=== PATIENT | male | born 1960 | race Caucasian/White ===

== ENCOUNTER 2018-05-05 12:24 | Outpatient (REF) | payer MEDICARE, SELFPAY ==
[2018-05-05 21:49] LABS: Hemoglobin A1C 10.2 % (4.5-6.2)
[2018-05-05 21:51] LABS: ALT 34 U/L (12-78); AST 15 U/L (15-37); Albumin 3.5 g/dL (3.4-5.0); Alkaline Phosphatase 133 U/L (46-116); BUN 30 mg/dL (7-18); Bilirubin, Total 0.3 mg/dL (0.2-1.0); CREATININE 1.23 mg/dL (0.70-1.30); Calcium 9.1 mg/dL (8.5-10.1); Chloride 101 mmol/L (98-107); Cholesterol 182 mg/dL (50-200); Glucose 95 mg/dL (70-100); HDL Cholesterol 42 mg/dL (40-60); LDL CHOLESTEROL 110 mg/dL (<100); Sodium 136 mmol/L (136-145); Total Protein 6.8 g/dL (6.4-8.2); Triglyceride 202 mg/dL (30-150)
[2018-05-07 10:37] LABS: PSA, Screening 0.4 ng/ml (0-3.5)
== END 2018-05-05 12:44 ==
LOC: NCHCN 12:24
PROVIDERS: PCP Family Medicine; Visit Provider Family Medicine
DX: E11.9 Type 2 diabetes mellitus without complications (principal); E78.5 Hyperlipidemia, unspecified; N18.3 Chronic kidney disease, stage 3 (moderate); Z12.5 Encounter for screening for malignant neoplasm of prostate
CPT/HCPCS: 80053; 80061; 83721; 84153; 83036

== ENCOUNTER 2018-06-04 04:49 | Emergency (ER) | payer MEDICARE, SELFPAY ==
[2018-06-04] VITALS (92 sets, daily range): BP systolic 91–155; BP diastolic 49–85; PULSE 81–108; RESP 10–26; TEMP 36.4; O2SAT 92–99
--- NOTE | 2018-06-04 05:02 | W.ED.GENAD ---
Discharge Plan Disposition Patient Disposition: HOSPITAL, NON-SPECIFIC Condition: Stable Discharge Details Chief Complaint: Chest Pain Clinical Impression: ACS (acute coronary syndrome) Primary Care Provider: Kalli Gamble V ED Provider: Oz Matthew [place] Meds and New Rx's Prescriptions: No Action furosemide 40 MG tablet 80 mg PO DAILY AM RF: 0 clopidogrel [Plavix] 75 MG tablet 75 mg PO DAILY RF: 0 amitriptyline 50 MG tablet 100 mg PO HS RF: 0 isosorbide mononitrate 60 MG tablet extended release 24 hr 60 mg PO BID RF: 0 rosuvastatin [Crestor] 40 MG tablet 40 mg PO HS RF: 0 ranolazine [Ranexa] 500 MG tablet extended release 12 hr 500 mg PO BID RF: 0 losartan 25 MG tablet 25 mg PO DAILY RF: 0 aspirin [Aspir-81] 81 MG tablet,delayed release (DR/EC) 1 tab PO DAILY RF: 0 duloxetine [Cymbalta] 60 MG capsule,delayed release(DR/EC) 60 mg PO BID RF: 0 metoprolol succinate 100 MG tablet extended release 24 hr 100 mg PO BID RF: 0 furosemide 40 MG tablet 40 mg PO QPM RF: 0 vitamin B complex [B-Complex] 1 EACH tablet 50,000 units PO .TWICE A WEEK RF: 0 nitroglycerin [Nitrolingual] 12 GM spray,non-aerosol 1 spray Sublingual DIRECTED PRN (Reason: Chest Pain) RF: 0 oxycodone-acetaminophen 1 EACH tablet 1 ea PO BID RF: 0 insulin detemir U-100 [Levemir FlexTouch U-100 Insuln] 300 UNITS/3 ML insulin pen 75 units Sub-Q BID RF: 0 pantoprazole 20 mg Tablet,Delayed Release (Dr/Ec) 20 mg PO BID RF: 0 insulin NPH isoph U-100 human [Novolin N NPH U-100 Insulin] 100 unit/mL Suspension 56 unit subcut HS RF: 0 Medical Decision Making Patient presenting with chest pressure radiating to the left arm and shortness of breath. Shortness of breath better with nitro but chest pressure still present. He does have unequal radial pulses but is presenting more as angina as opposed to dissection. Will, however, get CTA to rule out dissection. In the meantime, treat as unstable angina. His EKG does not show STEMI. Start nitroglycerin and titrate for chest pain. Blood pressure is a little bit soft so we will give a little fluid bolus. Heart is a little fast so will try Lopressor if able to once nitroglycerin has started depending on blood pressure. Aspirin given. Will initiate heparin if CTA negative for dissection. Will need transfer as no beds in hospital. Patient started on nitroglycerin drip at 5 mcg/min. Could not go up on the nitroglycerin because his blood pressure systolically was right around 100. Eventually his chest pain did resolve with a nitroglycerin. He did not receive Lopressor because of blood pressure. He did receive a 250 saline bolus. He is on 100 mL's per hour of saline currently. Initial laboratory studies mostly unremarkable. White count a little bit elevated. Hemoglobin fine. Platelets and coags normal. First troponin negative. BNP a little up at 1126. CTA of the chest and abdomen was obtained. This is negative for dissection. No evidence of PE, consolidation, pleural effusion, edema. Patient's pain did eventually resolve. He is currently pain-free. He has been started on heparin drip. He has been given Plavix 300 mg orally. He is hemodynamically stable with heart rate in 80s and SBP right around 100. I have spoken to [facility], [facility] (did discuss case with restorer paper and prints at [facility]). Spoke with hospitalist at [facility]. Patient accepted to [place] by Dr. Lezama. Patient remains stable and pain free. Second troponin is pending. [facility] is aware of pending transfer. Medical Records Medical records reviewed: Yes I reviewed the patient's medical records. Lab Data Lab results reviewed: Yes I reviewed the patient's lab results. ECG Data Attestation: I personally reviewed and interpreted this ECG (s) as follows: Prior ECG tracings: available for review Interpretation: Sinus tachycardia at 105. Normal axis and interval. Nonspecific ST changes consistent with previous. No acute elevation or depression. HPI General Mode of arrival: ambulatory. Date/Time Provider Initiated Documentation: 06/04/18 04:55. Limitations to Documentation: no limitations. Information obtained by: patient and old records reviewed. HPI Narrative: Patient presents to ED with complaint of chest pain and shortness of breath. Patient has known history of cardiac disease. He is on a slew of cardiac medications including Ranexa. He, however, does not typically have chest pain and is somewhat active without symptoms. This morning he awoke gasping for air with shortness of breath and chest pain described as pressure, squeezing. He had some lightheadedness and diaphoresis. He had no nausea. Chest pressure is left-sided and radiates slightly to the left arm. He has no back pain. He took 3 nitroglycerin without relief of the chest pressure but it did seem to make shortness of breath better. He presented to the ED for evaluation. He reports that this feels similar to previous heart attacks. He reports that the shortness of breath is almost gone but the chest pressure is still present and only a little bit better than when it started at home. Related Data Home Medications Medication Instructions Recorded Confirmed amitriptyline 100 mg PO HS 08/18/14 06/04/18 clopidogrel [Plavix] 75 mg PO DAILY 08/18/14 06/04/18 furosemide 80 mg PO DAILY AM 08/18/14 06/04/18 isosorbide mononitrate 60 mg PO BID 08/18/14 06/04/18 losartan 25 mg PO DAILY 08/18/14 06/04/18 ranolazine [Ranexa] 500 mg PO BID 08/18/14 06/04/18 rosuvastatin [Crestor] 40 mg PO HS 08/18/14 06/04/18 aspirin [Aspir-81] 1 tab PO DAILY 09/14/14 06/04/18 duloxetine [Cymbalta] 60 mg PO BID 09/14/14 06/04/18 metoprolol succinate 100 mg PO BID 11/03/14 06/04/18 furosemide 40 mg PO QPM 09/04/16 06/04/18 nitroglycerin [Nitrolingual] 1 spray SUBLINGUAL DIRECTED PRN 09/04/16 06/04/18 vitamin B complex [B-Complex] 50,000 units PO .TWICE A WEEK 09/04/16 06/04/18 oxycodone-acetaminophen 1 ea PO BID 10/22/16 06/04/18 insulin detemir U-100 [Levemir 75 units SUB-Q BID 02/23/17 06/04/18 FlexTouch U-100 Insuln] insulin NPH isoph U-100 human 56 unit SUBCUT HS 06/04/18 06/04/18 [Novolin N NPH U-100 Insulin] pantoprazole 20 mg PO BID 06/04/18 06/04/18 Allergies Allergy/AdvReac Type Severity Reaction Status Date / Time lorazepam Allergy Intermediate Loopy Unverified 06/04/18 04:56 metformin Allergy Intermediate Diarrhea Unverified 06/04/18 04:56 methadone Allergy Intermediate Loopy Unverified 06/04/18 04:56 Penicillins Allergy Unknown tolerated Unverified 06/04/18 04:56 Zosyn on admission 06/2016 insulin glargine, human AdvReac Intermediate Diarrhea Unverified 06/04/18 04:56 recombin. a [From Lantus] gabapentin AdvReac Mild loopy Unverified 06/04/18 04:56 morphine AdvReac Unknown Flushing Unverified 06/04/18 04:56 when given too fast General Stated Complaint: Chest Pain CARLOS EDUARDO: 2 Review of Systems Constitutional Denies chills, Denies fever(s) and Denies headache(s) Eyes Denies change in vision, Denies eye discharge and Denies eye pain ENT Denies otalgia, Denies facial pain, Denies headache(s), Denies neck pain and Denies sore throat Cardiovascular Reports chest pain, Reports diaphoresis, Denies syncope, Denies rapid heart rate, Denies edema, Reports lightheadedness, Reports radiating jaw, neck or arm pain, Denies palpitations and Reports dyspnea Respiratory Denies cough and Reports dyspnea Gastrointestinal Denies abdominal pain, Denies melena, Denies hematochezia, Denies nausea and Denies vomiting Genitourinary Denies hematuria Musculoskeletal Denies back pain, Denies neck pain and Reports numbness (chronic peripheral neuropathy) Integumentary/Breasts Denies erythema and Denies rash Neurologic Denies syncope, Denies headache(s), Denies focal weakness and Reports numbness (chronic peripheral neuropathy) Endocrine Denies palpitations [facility] Medical History CAD (coronary artery disease) (Chronic) Diabetes mellitus (Chronic) GERD (gastroesophageal reflux disease) (Chronic) HTN (hypertension) (Chronic) Hypercholesterolemia (Chronic) Migraine (Chronic) Neuropathy (Chronic) DARIO (obstructive sleep apnea) (Chronic) Obesities, morbid (Chronic) 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) Social History Smoking/Tobacco Use Status: Current-Occasional Surgical History History of heart artery stent (Chronic) Status post below knee amputation of left lower extremity (Chronic) History of lung biopsy (Inactive) S/P foot surgery (Inactive) Exam Const General: cooperative, comfortable and no acute distress Orientation: alert and oriented x3 HENMT Head: normocephalic and atraumatic Mouth: moist mucous membranes Neck Neck: normal visual inspection, trachea midline and supple Resp Effort & Inspection: normal respiratory effort Auscultation: rales bilaterally (few) at the base Cardio Rate: regular rate Rhythm: regular rhythm Heart Sounds: S1 normal and S2 normal Pulses: radial pulses present (right < left) GI Palpation: soft, not firm and nontender Skin General skin exam: no rashes or lesions noted Neuro General: alert, oriented x3, no focal motor deficits and CN's II-XI intact bilaterally Extrem General: no clubbing, cyanosis or edema and other (left BKA) Course Vital Signs Temperature 97.5 F L 06/04/18 04:54 Pulse 108 H 06/04/18 04:54 Respiratory Rate 20 06/04/18 04:54 Blood Pressure 155/73 H 06/04/18 04:54 Pulse Oximetry 97 06/04/18 04:54 Temperature 97.5 F L 06/04/18 04:54 Temperature Source Skin 06/04/18 04:54 Pulse 108 H 06/04/18 04:54 Respiratory Rate 20 06/04/18 04:54 Blood Pressure 155/73 H 06/04/18 04:54 Blood Pressure Position Sitting 06/04/18 04:54 Pulse Oximetry 97 06/04/18 04:54 Oxygen Delivery Method Room Air 06/04/18 04:54 Oxygen Flow Rate 0 06/04/18 04:54 Pain Level 8 06/04/18 04:54 Critical Care Time Critical Care Time: Yes Total Critical Care Time: 75 Attestation: ACS on NTG and Heparin
--- NOTE | 2018-06-04 05:12 | ED.GENADUL_ITS ---
Discharge Plan Disposition Patient Disposition: HOSPITAL, NON-SPECIFIC Condition: Stable Discharge Details Chief Complaint: Chest Pain Clinical Impression: ACS (acute coronary syndrome) Primary Care Provider: Kalli Gamble V ED Provider: Oz Matthew [place] Meds and New Rx's Prescriptions: No Action furosemide 40 MG tablet 80 mg PO DAILY AM RF: 0 clopidogrel [Plavix] 75 MG tablet 75 mg PO DAILY RF: 0 amitriptyline 50 MG tablet 100 mg PO HS RF: 0 isosorbide mononitrate 60 MG tablet extended release 24 hr 60 mg PO BID RF: 0 rosuvastatin [Crestor] 40 MG tablet 40 mg PO HS RF: 0 ranolazine [Ranexa] 500 MG tablet extended release 12 hr 500 mg PO BID RF: 0 losartan 25 MG tablet 25 mg PO DAILY RF: 0 aspirin [Aspir-81] 81 MG tablet,delayed release (DR/EC) 1 tab PO DAILY RF: 0 duloxetine [Cymbalta] 60 MG capsule,delayed release(DR/EC) 60 mg PO BID RF: 0 metoprolol succinate 100 MG tablet extended release 24 hr 100 mg PO BID RF: 0 furosemide 40 MG tablet 40 mg PO QPM RF: 0 vitamin B complex [B-Complex] 1 EACH tablet 50,000 units PO .TWICE A WEEK RF: 0 nitroglycerin [Nitrolingual] 12 GM spray,non-aerosol 1 spray Sublingual DIRECTED PRN (Reason: Chest Pain) RF: 0 oxycodone-acetaminophen 1 EACH tablet 1 ea PO BID RF: 0 insulin detemir U-100 [Levemir FlexTouch U-100 Insuln] 300 UNITS/3 ML insulin pen 75 units Sub-Q BID RF: 0 pantoprazole 20 mg Tablet,Delayed Release (Dr/Ec) 20 mg PO BID RF: 0 insulin NPH isoph U-100 human [Novolin N NPH U-100 Insulin] 100 unit/mL Suspension 56 unit subcut HS RF: 0 Medical Decision Making Patient presenting with chest pressure radiating to the left arm and shortness of breath. Shortness of breath better with nitro but chest pressure still present. He does have unequal radial pulses but is presenting more as angina as opposed to dissection. Will, however, get CTA to rule out dissection. In the meantime, treat as unstable angina. His EKG does not show STEMI. Start nitroglycerin and titrate for chest pain. Blood pressure is a little bit soft so we will give a little fluid bolus. Heart is a little fast so will try Lopressor if able to once nitroglycerin has started depending on blood pressure. Aspirin given. Will initiate heparin if CTA negative for dissection. Will need transfer as no beds in hospital. Patient started on nitroglycerin drip at 5 mcg/min. Could not go up on the nitroglycerin because his blood pressure systolically was right around 100. Eventually his chest pain did resolve with a nitroglycerin. He did not receive Lopressor because of blood pressure. He did receive a 250 saline bolus. He is on 100 mL's per hour of saline currently. Initial laboratory studies mostly unremarkable. White count a little bit elevated. Hemoglobin fine. Platelets and coags normal. First troponin negative. BNP a little up at 1126. CTA of the chest and abdomen was obtained. This is negative for dissection. No evidence of PE, consolidation, pleural effusion, edema. Patient's pain did eventually resolve. He is currently pain-free. He has been started on heparin drip. He has been given Plavix 300 mg orally. He is hemodynamically stable with heart rate in 80s and SBP right around 100. I have spoken to [facility], [facility] (did discuss case with middle school science teacher at [facility]). Spoke with hospitalist at [facility]. Patient accepted to [place] by Dr. Lezama. Patient remains stable and pain free. Second troponin is pending. [facility] is aware of pending transfer. Medical Records Medical records reviewed: Yes I reviewed the patient's medical records. Lab Data Lab results reviewed: Yes I reviewed the patient's lab results. ECG Data Attestation: I personally reviewed and interpreted this ECG (s) as follows: Prior ECG tracings: available for review Interpretation: Sinus tachycardia at 105. Normal axis and interval. Nonspecific ST changes consistent with previous. No acute elevation or depression. HPI General Mode of arrival: ambulatory . Date/Time Provider Initiated Documentation: 06/04/18 04:55 . Limitations to Documentation: no limitations . Information obtained by: patient and old records reviewed . HPI Narrative: Patient presents to ED with complaint of chest pain and shortness of breath. Patient has known history of cardiac disease. He is on a slew of cardiac medications including Ranexa. He, however, does not typically have chest pain and is somewhat active without symptoms. This morning he awoke gasping for air with shortness of breath and chest pain described as pressure, squeezing. He had some lightheadedness and diaphoresis. He had no nausea. Chest pressure is left-sided and radiates slightly to the left arm. He has no back pain. He took 3 nitroglycerin without relief of the chest pressure but it did seem to make shortness of breath better. He presented to the ED for evaluation. He reports that this feels similar to previous heart attacks. He reports that the shortness of breath is almost gone but the chest pressure is still present and only a little bit better than when it started at home. Related Data Home Medications Medication Instructions Recorded Confirmed amitriptyline 100 mg PO HS 08/18/14 06/04/18 clopidogrel [Plavix] 75 mg PO DAILY 08/18/14 06/04/18 furosemide 80 mg PO DAILY AM 08/18/14 06/04/18 isosorbide mononitrate 60 mg PO BID 08/18/14 06/04/18 losartan 25 mg PO DAILY 08/18/14 06/04/18 ranolazine [Ranexa] 500 mg PO BID 08/18/14 06/04/18 rosuvastatin [Crestor] 40 mg PO HS 08/18/14 06/04/18 aspirin [Aspir-81] 1 tab PO DAILY 09/14/14 06/04/18 duloxetine [Cymbalta] 60 mg PO BID 09/14/14 06/04/18 metoprolol succinate 100 mg PO BID 11/03/14 06/04/18 furosemide 40 mg PO QPM 09/04/16 06/04/18 nitroglycerin [Nitrolingual] 1 spray SUBLINGUAL DIRECTED PRN 09/04/16 vitamin B complex [B-Complex] 50,000 units PO .TWICE A WEEK 09/04/16 06/04/18 oxycodone-acetaminophen 1 ea PO BID 10/22/16 06/04/18 insulin detemir U-100 [Levemir 75 units SUB-Q BID 02/23/17 06/04/18 FlexTouch U-100 Insuln] insulin NPH isoph U-100 human 56 unit SUBCUT HS 06/04/18 06/04/18 [Novolin N NPH U-100 Insulin] pantoprazole 20 mg PO BID 06/04/18 06/04/18 Allergies Allergy/AdvReac Type Severity Reaction Status Date / Time lorazepam Allergy Intermediate Loopy Unverified 06/04/18 04:56 metformin Allergy Intermediate Diarrhea Unverified 06/04/18 04:56 methadone Allergy Intermediate Loopy Unverified 06/04/18 04:56 Penicillins Allergy Unknown tolerated Unverified 06/04/18 04:56 Zosyn on admission 06/2016 insulin glargine, human AdvReac Intermediate Diarrhea Unverified 06/04/18 04:56 recombin. a [From Lantus] gabapentin AdvReac Mild loopy Unverified 06/04/18 04:56 morphine AdvReac Unknown Flushing Unverified 06/04/18 04:56 when given too fast General Stated Complaint: Chest Pain CARLOS EDUARDO: 2 Review of Systems Constitutional Denies chills, Denies fever(s) and Denies headache(s) Eyes Denies change in vision, Denies eye discharge and Denies eye pain ENT Denies otalgia, Denies facial pain, Denies headache(s), Denies neck pain and Denies sore throat Cardiovascular Reports chest pain, Reports diaphoresis, Denies syncope, Denies rapid heart rate , Denies edema, Reports lightheadedness, Reports radiating jaw, neck or arm pain , Denies palpitations and Reports dyspnea Respiratory Denies cough and Reports dyspnea Gastrointestinal Denies abdominal pain, Denies melena, Denies hematochezia, Denies nausea and Denies vomiting Genitourinary Denies hematuria Musculoskeletal Denies back pain, Denies neck pain and Reports numbness (chronic peripheral neuropathy) Integumentary/Breasts Denies erythema and Denies rash Neurologic Denies syncope, Denies headache(s), Denies focal weakness and Reports numbness ( chronic peripheral neuropathy) Endocrine Denies palpitations [facility] Medical History CAD (coronary artery disease) (Chronic) Diabetes mellitus (Chronic) GERD (gastroesophageal reflux disease) (Chronic) HTN (hypertension) (Chronic) Hypercholesterolemia (Chronic) Migraine (Chronic) Neuropathy (Chronic) DARIO (obstructive sleep apnea) (Chronic) Obesities, morbid (Chronic) 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) Social History Smoking/Tobacco Use Status: Current-Occasional Surgical History History of heart artery stent (Chronic) Status post below knee amputation of left lower extremity (Chronic) History of lung biopsy (Inactive) S/P foot surgery (Inactive) Exam Const General: cooperative, comfortable and no acute distress Orientation: alert and oriented x3 HENMT Head: normocephalic and atraumatic Mouth: moist mucous membranes Neck Neck: normal visual inspection, trachea midline and supple Resp Effort & Inspection: normal respiratory effort Auscultation: rales bilaterally (few) at the base Cardio Rate: regular rate Rhythm: regular rhythm Heart Sounds: S1 normal and S2 normal Pulses: radial pulses present (right < left) GI Palpation: soft, not firm and nontender Skin General skin exam: no rashes or lesions noted Neuro General: alert, oriented x3, no focal motor deficits and CN's II-XI intact bilaterally Extrem General: no clubbing, cyanosis or edema and other (left BKA) Course Vital Signs Temperature 97.5 F L 06/04/18 04:54 Pulse 108 H 06/04/18 04:54 Respiratory Rate 20 06/04/18 04:54 Blood Pressure 155/73 H 06/04/18 04:54 Pulse Oximetry 97 06/04/18 04:54 Temperature 97.5 F L 06/04/18 04:54 Temperature Source Skin 06/04/18 04:54 Pulse 108 H 06/04/18 04:54 Respiratory Rate 20 06/04/18 04:54 Blood Pressure 155/73 H 06/04/18 04:54 Blood Pressure Position Sitting 06/04/18 04:54 Pulse Oximetry 97 06/04/18 04:54 Oxygen Delivery Method Room Air 06/04/18 04:54 Oxygen Flow Rate 0 06/04/18 04:54 Pain Level 8 06/04/18 04:54 Critical Care Time Critical Care Time: Yes Total Critical Care Time: 75 Attestation: ACS on NTG and Heparin
[2018-06-04] MEDS: Aspirin 81 MG CHEW (05:13)
--- NOTE | 2018-06-04 05:31 | DI.CT_ITS ---
SYMPTOM/DIAGNOSIS: CHEST PAIN WITH UNEQUAL RADIAL PULSES CTA OF THORAX: CT angiography was performed with multi slice acquisition and multi planar and 3D reconstruction. The study was conducted according to the usual protocol with an intravenous administration of 120 cc's of Omnipaque 350. The pulmonary arteries are normal. There is no evidence of PE. There is no evidence of an aortic aneurysm or aortic dissection. Pulmonary nodules are present, the largest measuring up to 17 mm. in the right upper lobe. No prior CT is extant. The lungs are free of infiltrate. There is no pleural effusion. The cardiovascular structures appear intact. There is no evidence of a pericardial effusion. The bony structures are unremarkable. The soft tissues are unremarkable. There are small nonspecific mediastinal and hilar lymph nodes. SUMMARY: No acute findings are evident. There is no evidence of an aortic aneurysm and no evidence of a subclavian or axillary aneurysm. Pulmonary nodules are present, at least some of which appear to reflect granulomata. Further evaluation of this patient with chest CT in 3 months is suggested for further evaluation. CTA OF ABDOMEN: CT angiography was performed with multi slice acquisition and multi planar and 3D reconstruction. The study was carried out with an intravenous administration of 120 cc's of Omnipaque 350. The lungs are unremarkable. The aorta is unremarkable. The celiac trunk and mesenteric arteries are unremarkable with no evidence of stenosis. The renal arteries are unremarkable. There is no evidence of an occlusion or aneurysm. Evaluation of the abdomen reveals a fatty liver. The gallbladder is normal. No calcified stones or ductal dilatation is seen. The pancreas, spleen and adrenals and kidneys are unremarkable. The stomach is unremarkable. There is no evidence of obstruction. No localized bowel abnormality is seen. Shotty nonspecific retroperitoneal lymph nodes are evident. SUMMARY: No acute abnormality is demonstrated. Please see the above discussion.
[2018-06-04 05:35] LABS: Abs Immature Grans 0.15 k/cumm (0.0-0.09); Absolute Basophil Count 0.06 k/cumm (0.0-0.2); Absolute Eosinophil Count 0.38 k/cumm (0.0-0.7); Absolute Lymphocyte Count 2.69 k/cumm (1.2-3.4); Absolute Neutrophil Count 8.46 k/cumm (1.2-6.7); Basophils % 0.5; HCT 45.9 % (40.0-50.0); HGB 15.5 g/dL (13.5-17.5); Immature Grans % 1.2; Lymphocytes % 21.3; Mean Corp. HGB Concentration 33.8 g/dL (32.0-36.0); Mean Platelet Volume 11.3 fL (8.0-11.0); Monocytes % 7.1; Neutrophils % 66.9; Platelet Count 216 x1000/uL (130-400); RBC 5.16 m/cumm (4.50-6.00); RBC Distribution Width 14.1 % (11.8-14.1); White Blood Cell Count 12.64 k/cumm (4.4-10.8)
[2018-06-04 05:42] LABS: Anion Gap 10.6 mmol/L (3-11); BUN 27 mg/dL (7-18); CO2 27.4 mmol/L (21.0-32.0); CREATININE 1.14 mg/dL (0.70-1.30); Calcium 9.6 mg/dL (8.5-10.1); Chloride 96 mmol/L (98-107); Glucose 297 mg/dL (70-100); Magnesium 1.8 mg/dL (1.8-2.4); Potassium 4.2 mmol/L (3.5-5.1); Sodium 134 mmol/L (136-145)
[2018-06-04] MEDS: Normal Saline 250 ML IV (05:47)
[2018-06-04 05:56] LABS: Troponin I < 0.02 ng/mL (0.00-0.06)
[2018-06-04 05:57] LABS: NT-proBNP 1126 pg/mL
[2018-06-04 06:02] LABS: PTT Activated 23.3 sec (21.0-31.4); Prothrombin Time 9.3 sec (9.3-10.8)
[2018-06-04] MEDS: Normal Saline Flush 10 ML SYR IVP (06:04)
[2018-06-04] MEDS: Omnipaque 350 MG/ML 100 ML BTL IJ (06:27)
[2018-06-04] MEDS: Omnipaque 350 MG/ML 50 ML BTL IJ (06:28)
[2018-06-04] MEDS: Normal Saline 1,000 ML 100 ML IV (07:01)
--- NOTE | 2018-06-04 07:17 | DI.VRAD_ITS ---
EXAM: CT Angiography Chest With Intravenous Contrast EXAM DATE/TIME: 06/04/2018 5:32 AM CLINICAL HISTORY: 58 years old, male; Pain; Chest pain; Type not specified; Other: Evaluate aorta; Prior surgery; Surgery date: 6+ months; Surgery type: Lung biopsy years ago; Patient HX: Chest pain with unequal radial pulses TECHNIQUE: Axial computed tomographic angiography images of the chest with intravenous contrast using CT angiography protocol. All CT scans at this facility use at least one of these dose optimization techniques: automated exposure control; mA and/or kV adjustment per patient size (includes targeted exams where dose is matched to clinical indication); or iterative reconstruction. MIP reconstructed images were created and reviewed. CONTRAST: 120 ml of Omnipaque 350 administered intravenously. COMPARISON: CR PORTABLE CHEST ONE VIEW 12/13/2016 12:28 PM FINDINGS: Pulmonary arteries: Normal. No pulmonary emboli. Aorta: Normal. No aortic aneurysm. No aortic dissection. Lungs: Pulmonary nodules are present the largest of which measures up to 17 mm, and some of which appear to reflect granuloma. Demonstration of stability recommended. Pleural space: Normal. No pneumothorax. No pleural effusion. Heart: Normal. No cardiomegaly. No pericardial effusion. Bones/joints: Unremarkable. No acute fracture. Soft tissues: Unremarkable. Lymph nodes: Nonspecific mediastinal and hilar lymph nodes are small in size IMPRESSION: No acute findings. No evidence for thoracic aortic dissection. No evidence for subclavian or axillary artery stenosis. Pulmonary nodules are present the largest of which measures up to 17 mm, and some of which appear to reflect granuloma. Demonstration of stability recommended. EXAM: CT Angiography Abdomen With Intravenous Contrast EXAM DATE/TIME: 06/04/2018 5:32 AM CLINICAL HISTORY: 58 years old, male; Pain; Chest pain; Type not specified; Other: Evaluate aorta; Prior surgery; Surgery date: 6+ months; Surgery type: Lung biopsy years ago; Patient HX: Chest pain with unequal radial pulses TECHNIQUE: Axial computed tomographic angiography images of the abdomen with intravenous contrast material, including non-contrast images if performed. MIP and/or 3D reconstructed images were created and reviewed. All CT scans at this facility use at least one of these dose optimization techniques: automated exposure control; mA and/or kV adjustment per patient size (includes targeted exams where dose is matched to clinical indication); or iterative reconstruction. MIP reconstructed images were created and reviewed. CONTRAST: 120 ml of Omnipaque 350 administered intravenously. COMPARISON: CR PORTABLE CHEST ONE VIEW 12/13/2016 12:28 PM FINDINGS: Lungs: Unremarkable. No consolidation. VASCULATURE: Aorta: No aortic aneurysm. No aortic dissection. Celiac Trunk and Mesenteric Arteries: No occlusion or significant stenosis. Renal Arteries: No occlusion or significant stenosis. ABDOMEN: Liver: Hepatic steatosis is present. Gallbladder and bile ducts: Normal. No calcified stones. No ductal dilation. Pancreas: Normal. No ductal dilation. Spleen: Normal. No splenomegaly. Adrenals: Normal. No mass. Kidneys and ureters: Normal. No hydronephrosis. Stomach and bowel: Unremarkable. No obstruction. No mucosal thickening. Intraperitoneal space: Unremarkable. No free air. No significant fluid collection. Bones/joints: Unremarkable. No acute fracture. No dislocation. Soft tissues: Unremarkable. Lymph nodes: Shotty nonspecific retroperitoneal lymphadenopathy is noted. IMPRESSION: No acute findings Dictated and Authenticated by: Brady Morales MD. Ordering:WILMER CUEVAS MD
[2018-06-04] MEDS: Clopidogrel 300 MG TAB PO (07:54)
[2018-06-04 09:10] LABS: Troponin I < 0.02 ng/mL (0.00-0.06)
== END 2018-06-04 13:02 | disposition short-term general hospital (02) ==
PROVIDERS: Emergency Provider Emergency Medicine; PCP Family Medicine
DX: I24.9 Acute ischemic heart disease, unspecified (principal); R00.0 Tachycardia, unspecified; I10 Essential (primary) hypertension; E11.9 Type 2 diabetes mellitus without complications; Z79.4 Long term (current) use of insulin
CPT/HCPCS: 36415; 71275; 74175; 80048; 93005; 96361; 96365; 96366; 96368; 99285; 83735; 83880; 84484; 85025; 85610; 85730; 93010; J3490; Q9967

== ENCOUNTER 2018-07-27 02:46 | Emergency (ER) | payer MEDICARE, SELFPAY ==
[2018-07-27 02:52] VITALS: BP 166/99; PULSE 111; RESP 15; TEMP 37.1; O2SAT 98
--- NOTE | 2018-07-27 03:08 | W.ED.GENAD ---
Discharge Plan Disposition Patient Disposition: HOME Condition: Stable Discharge Details Chief Complaint: RespSymp Clinical Impression: URI (upper respiratory infection) Primary Care Provider: Kalli Gamble V ED Provider: Justus Felix Home Meds and New Rx's Prescriptions: New prednisone 20 mg tablet 60 mg PO DAILY 4 Days Qty: 12 RF: 0 levofloxacin 750 mg tablet 750 mg PO DAILY Qty: 5 RF: 0 No Action furosemide 40 MG tablet 40 mg PO BID RF: 0 clopidogrel [Plavix] 75 MG tablet 75 mg PO DAILY RF: 0 amitriptyline 50 MG tablet 100 mg PO HS RF: 0 isosorbide mononitrate 60 MG tablet extended release 24 hr 120 mg PO BID RF: 0 rosuvastatin [Crestor] 40 MG tablet 40 mg PO HS RF: 0 Ranexa 500 MG tablet extended release 12 hr 500 mg PO BID RF: 0 losartan 25 MG tablet 25 mg PO DAILY RF: 0 aspirin [Aspir-81] 81 MG tablet,delayed release (DR/EC) 1 tab PO DAILY RF: 0 duloxetine [Cymbalta] 60 MG capsule,delayed release(DR/EC) 60 mg PO BID RF: 0 metoprolol succinate 100 MG tablet extended release 24 hr 100 mg PO BID RF: 0 vitamin B complex [B-Complex] 1 EACH tablet 50,000 units PO .TWICE A WEEK RF: 0 nitroglycerin [Nitrolingual] 12 GM spray,non-aerosol 1 spray Sublingual DIRECTED PRN (Reason: Chest Pain) RF: 0 oxycodone-acetaminophen 1 EACH tablet 1 ea PO BID RF: 0 Levemir FlexTouch U-100 Insuln 300 UNITS/3 ML insulin pen 75 units Sub-Q BID RF: 0 pantoprazole 20 mg Tablet,Delayed Release (Dr/Ec) 20 mg PO BID RF: 0 Novolin N NPH U-100 Insulin 100 unit/mL Suspension 56 unit subcut HS RF: 0 potassium chloride 20 mEq Tablet Extended Release 20 meq PO DAILY RF: 0 Discharge Instructions Instructions: Upper Respiratory Infection (ED) Additional Instructions: follow up with your primary care provider within 1-2 weeks especially if symptoms continue. When you follow up with your primary care provider you should discuss having formal testing for COPD if you feel you are having more difficulty breathing, have severe weakness, or have new symptoms such as abdominal pain return to the emergency department for reevaluation Medical Decision Making 58 yo male comes in with cough and myalgias and sore throat for 3 days, denies significant sob or chest pain/pressure. he denies recent travel. HE is a smoker and has been for many years, denies dx of copd. He is speaking in full sentences in no distress laughing intermittently. He has wheezing at the bases bilateral and also the apices bilaterally. No leg swelling or calf pain, no pleuritic chest pain. I suspect given the patient's smoking hx that he likely has copd so will treat as copd exacerbation with steroids and neb and given increased cough from baseline abx. HAs no fever and appears well and has no hypoxia so do not feel xray or lab work indicated. Will also check for influenza. pt's lung exam much improved after tx's, flu test negative. Remains HD stable without fever and speaking in full sentences. Will send home with inhaler, steroids aand abx prescription. advised f/u with pcp and return precautions given Differential Diagnosis copd, pna, influenza HPI General Mode of arrival: ambulatory. Date/Time Provider Initiated Documentation: 07/27/18 02:58. Limitations to Documentation: no limitations. Information obtained by: patient. History of Present Illness 58 year old M presents to the emergency department with the chief complaint of cough, described as moderate, with intensity rated at 4. Patient started experiencing this day(s) (4) and it has been constant. No relieving factors improve symptom(s), No exacerbating factors reported . Patient notes other (myalgias). Patient did receive the following treatments prior to arrival, none Related Data Home Medications Medication Instructions Recorded Confirmed Ranexa 500 mg PO BID 08/18/14 07/27/18 amitriptyline 100 mg PO HS 08/18/14 07/27/18 clopidogrel [Plavix] 75 mg PO DAILY 08/18/14 07/27/18 furosemide 40 mg PO BID 08/18/14 07/27/18 isosorbide mononitrate 120 mg PO BID 08/18/14 07/27/18 losartan 25 mg PO DAILY 08/18/14 07/27/18 rosuvastatin [Crestor] 40 mg PO HS 08/18/14 07/27/18 aspirin [Aspir-81] 1 tab PO DAILY 09/14/14 07/27/18 duloxetine [Cymbalta] 60 mg PO BID 09/14/14 07/27/18 metoprolol succinate 100 mg PO BID 11/03/14 07/27/18 nitroglycerin [Nitrolingual] 1 spray SUBLINGUAL DIRECTED PRN 09/04/16 07/27/18 vitamin B complex [B-Complex] 50,000 units PO .TWICE A WEEK 09/04/16 07/27/18 oxycodone-acetaminophen 1 ea PO BID 10/22/16 06/04/18 Levemir FlexTouch U-100 Insuln 75 units SUB-Q BID 02/23/17 07/27/18 insulin NPH isoph U-100 human 56 unit SUBCUT HS 06/04/18 07/27/18 [Novolin N NPH U-100 Insulin] pantoprazole 20 mg PO BID 06/04/18 07/27/18 levofloxacin 750 mg PO DAILY #5 tab 07/27/18 potassium chloride 20 meq PO DAILY 07/27/18 07/27/18 prednisone 60 mg PO DAILY 4 Days #12 tab 07/27/18 Previous Rx's Medication Instructions Recorded levofloxacin 750 mg PO DAILY #5 tab 07/27/18 prednisone 60 mg PO DAILY 4 Days #12 tab 07/27/18 Allergies Allergy/AdvReac Type Severity Reaction Status Date / Time lorazepam Allergy Intermediate Loopy Unverified 07/27/18 02:56 metformin Allergy Intermediate Diarrhea Unverified 07/27/18 02:56 methadone Allergy Intermediate Loopy Unverified 07/27/18 02:56 Penicillins Allergy Unknown tolerated Unverified 07/27/18 02:56 Zosyn on admission 06/2016 insulin glargine, human AdvReac Intermediate Diarrhea Unverified 07/27/18 02:56 recombin. a [From Lantus] gabapentin AdvReac Mild loopy Unverified 07/27/18 02:56 morphine AdvReac Unknown Flushing Unverified 07/27/18 02:56 when given too fast General Stated Complaint: RespSymp CARLOS EDUARDO: 3 Review of Systems Review of Systems All systems reviewed & are unremarkable except as noted in HPI and below Constitutional Denies fever(s) and Denies weakness Eyes Denies loss of vision ENT Denies change in voice Cardiovascular Denies chest pain and Denies dyspnea Respiratory Denies dyspnea Gastrointestinal Denies abdominal pain, Denies nausea and Denies vomiting Genitourinary Denies dysuria Musculoskeletal Denies joint swelling Neurologic Denies loss of vision and Denies weakness Psychiatric Denies depression Endocrine Denies heat intolerance [facility] Medical History CAD (coronary artery disease) (Chronic) Diabetes mellitus (Chronic) GERD (gastroesophageal reflux disease) (Chronic) HTN (hypertension) (Chronic) Hypercholesterolemia (Chronic) Migraine (Chronic) Neuropathy (Chronic) DARIO (obstructive sleep apnea) (Chronic) Obesities, morbid (Chronic) 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) Surgical History History of heart artery stent (Chronic) Status post below knee amputation of left lower extremity (Chronic) History of lung biopsy (Inactive) S/P foot surgery (Inactive) Social History Smoking/Tobacco Use Status: Current-Occasional Exam Const General: no acute distress Orientation: alert HENMT Head: normal to inspection Ears: external ears normal General nose exam: external nose normal Mouth: moist mucous membranes Eyes General: appearance normal, both eyes and all related structures Neck Neck: normal visual inspection Resp Effort & Inspection: normal respiratory effort and able to speak in complete sentences Cardio Rate: regular rate Skin General skin exam: no rashes or lesions noted Neuro General: alert and oriented x3 Extrem General: normal to inspection Psych Mental Status: mental status grossly normal Course Vital Signs Temperature 37.1 C 07/27/18 02:52 Pulse 111 H 07/27/18 02:52 Respiratory Rate 15 07/27/18 02:52 Blood Pressure 166/99 H 07/27/18 02:52 Pulse Oximetry 98 07/27/18 02:52 Temperature 37.1 C 07/27/18 02:52 Temperature Source Temporal Artery Scan 07/27/18 02:52 Pulse 111 H 07/27/18 02:52 Respiratory Rate 15 07/27/18 02:52 Respiratory Effort Non-Labored 07/27/18 03:07 Respiratory Depth Normal 07/27/18 03:07 Blood Pressure 166/99 H 07/27/18 02:52 Blood Pressure Position Sitting 07/27/18 02:52 Pulse Oximetry 98 07/27/18 02:52 Oxygen Delivery Method Room Air 07/27/18 02:52 Oxygen Flow Rate 0 07/27/18 02:52 Pain Level 0 07/27/18 02:52
[2018-07-27] MEDS: predniSONE 20 MG TAB 60 MG PO (03:13)
[2018-07-27] MEDS: LEVOFLOXACIN 500 MG, LEVOFLOXACIN 250 MG 750 MG PO (03:13)
[2018-07-27] MEDS: Albuterol/Ipratropium 3 ML UPD VIAL UPD (03:13)
[2018-07-27 03:53] VITALS: BP 156/89; PULSE 101; RESP 16; TEMP 37.1; O2SAT 98
[2018-07-27] MEDS: Albuterol HFA 8 GM 60 PUFF INH IH (03:56)
[2018-07-27] MEDS: Inhaler, Assist Device 1 EACH MC (03:57)
== END 2018-07-27 03:58 | disposition home or self-care (01) ==
PROVIDERS: Emergency Provider Emergency Medicine; PCP Family Medicine
DX: J06.9 Acute upper respiratory infection, unspecified (principal); F17.210 Nicotine dependence, cigarettes, uncomplicated; E11.42 Type 2 diabetes mellitus with diabetic polyneuropathy; I10 Essential (primary) hypertension
CPT/HCPCS: 87449; 94640; 99283; J7512; J7620

== ENCOUNTER 2018-08-14 01:52 | Outpatient (CLI) | payer MEDICARE, SELFPAY ==
[2018-08-14] MEDS: Albuterol HFA 18 GM 200 PUFF INH IH (10:34)
[2018-08-14] MEDS: Inhaler, Assist Device 1 EACH MC (10:34)
--- NOTE | 2018-08-17 17:32 | PFT_ITS ---
PULMONARY FUNCTION TEST REPORT DATE OF SERVICE: August 14, 2018 REQUESTING PROVIDER: Kalli Gamble M.D. Spirometry shows no evidence of obstructive airways disease. No bronchodilator response. Lung volumes show mild restriction. Diffusion capacity mildly reduced, which is normal when corrected to alveolar volume. Airways resistance normal. IMPRESSION: Mild restrictive lung disease associated with mild diffusion defect. The differential diagnosis includes interstitial lung disease versus respiratory neuromuscular weakness versus external chest wall restriction. Therefore clinical correlation recommended and further workup should be conducted.
== END 2018-08-14 02:12 ==
PROVIDERS: PCP Family Medicine; Visit Provider Family Medicine
DX: F17.200 Nicotine dependence, unspecified, uncomplicated (principal); I25.10 Atherosclerotic heart disease of native coronary artery without angina pectoris; J98.4 Other disorders of lung
CPT/HCPCS: 94060; 94150; 94726; 94729

== ENCOUNTER 2018-09-09 01:33 | Outpatient (CLI) | payer MEDICARE, SELFPAY ==
--- NOTE | 2018-09-09 10:10 | DIABASSESS_ITS ---
DESCRIPTION/ASSESSMENT: Tod Longoria presents for medical nutrition therapy and diabetes self management in hopes of weight loss and improved glycemic management. Current A1c 14 NUTRITION: Ed admits he has a food problem. Recently cut out most bread, no longer eating pasta daily and has decreased his portion. He has also cut back on eating cheese at night. He states he eats only 1 pound/week instead of 2#/week. He eats sweet potato instead of white. He continues to eat sweets but half his usual. He states 1/2 hour after supper he sometimes gets up to eat again. He relates it to boredom. He reports 56pound weight loss over past 2 years. Has weight goal of 250 pounds. States he lost 6 pounds past week cutting back on bread. MEDICATIONS: Levemir 75units AM and PM although he reports frequently forgetting the evening dose. Novolog ~40 in AM when fasting blood sugars are elevated. Otherwise 15-18units at lunch. More at supper when he remembers to take it. MONITORING: Ed monitors before most meals and then doses insulin. He sometimes forgets in evening. Fasting blood sugar 438 this AM as he forgot both insulins last evening. RISKS: Ed is trying to quit smoking. He has nicorette lozenges but is not really using them. States at times he can go all day without a cigarette. Smokes mostly in the AM. INTERVENTION: Ed is focused on weight loss and requests support for this. Food - Discussed triggers for eating. Discussed minimum of vegetables. Discussed eating when hungry instead of forcing himself to eat in the AM. Encouraged Alyce Rudolph participation. Medication - discussed insulin alternatives. He is interested in TRESIBA U200 and would like to consider this. Discussed strategies to remember supper insulin. Discussed dosages. Blood sugars increase from lunch to supper. Suggest increasing Novolog dose at lunch. Monitoring: Discussed glycemic changes overnight and need to find the cause of hyperglycemia fasting. Risks - discussed ways to postpone the first cigarette; encouraged him to contact support from the QUIT line. Ed is engaged in the conversation and motivated to do the following: PLAN: Discuss with Provider TRESIBA U[address] of Levemir to be taken once daily in AM Novolog- Lunchtime start at 18units Nicorette Lozenge first thig in AM - put off cigarett as long as possible Eat 2 cups vegetables every day - minimum Put Novolog pen beside where you are eating Supper Individual MNT ___2_ units billed TIME [id number] No DM group education series being offered at this time.
== END 2018-09-09 01:53 ==
PROVIDERS: PCP Family Medicine; Visit Provider Dietitian, Registered
DX: E11.9 Type 2 diabetes mellitus without complications (principal); Z79.4 Long term (current) use of insulin; Z71.3 Dietary counseling and surveillance
CPT/HCPCS: 97802

== ENCOUNTER 2019-02-19 10:58 | Outpatient (REF) | payer OTHER, SELFPAY ==
[2019-02-19 20:38] LABS: ALT 32 U/L (12-78); AST 16 U/L (15-37); Albumin 3.7 g/dL (3.4-5.0); Alkaline Phosphatase 144 U/L (46-116); Anion Gap 10.2 mmol/L (3-11); BUN 35 mg/dL (7-18); Bilirubin, Total 0.3 mg/dL (0.2-1.0); CO2 23.8 mmol/L (21.0-32.0); CREATININE 1.46 mg/dL (0.70-1.30); Calcium 9.8 mg/dL (8.5-10.1); Chloride 101 mmol/L (98-107); Estimated GFR 49.77 (mL/min/1.73m2); Glucose 203 mg/dL (70-100); Potassium 5.5 mmol/L (3.5-5.1); Sodium 135 mmol/L (136-145); Total Protein 7.5 g/dL (6.4-8.2)
== END 2019-02-19 11:18 ==
LOC: NCHCN 10:58
PROVIDERS: PCP Family Medicine; Visit Provider Family Medicine
DX: K21.9 Gastro-esophageal reflux disease without esophagitis (principal)
CPT/HCPCS: 80053

== ENCOUNTER 2019-02-25 16:54 | Outpatient (REF) | payer MEDICARE, SELFPAY ==
[2019-03-02 14:20] LABS: Helicobacter pylori Ag, Feces Negative (NEGAT)
== END 2019-02-25 17:14 ==
LOC: NCHCN 16:54
PROVIDERS: PCP Family Medicine; Visit Provider Family Medicine
DX: K21.9 Gastro-esophageal reflux disease without esophagitis (principal); Z86.19 Personal history of other infectious and parasitic diseases
CPT/HCPCS: 87338

== ENCOUNTER 2019-04-16 10:38 | Outpatient (REF) | payer MEDICARE, MEDICAID, SELFPAY ==
[2019-04-16 19:16] LABS: Hemoglobin A1C 10.5 % (4.5-6.2)
[2019-04-16 19:28] LABS: Anion Gap 11.4 mmol/L (3-11); BUN 47 mg/dL (7-18); CO2 22.6 mmol/L (21.0-32.0); CREATININE 1.58 mg/dL (0.70-1.30); Calcium 9.2 mg/dL (8.5-10.1); Calculated LDL 86 mg/dL; Chloride 97 mmol/L (98-107); Cholesterol 155 mg/dL (50-200); Estimated GFR 45.43 (mL/min/1.73m2); Glucose 397 mg/dL (70-100); HDL Cholesterol 34 mg/dL (40-60); Potassium 5.4 mmol/L (3.5-5.1); Sodium 131 mmol/L (136-145); Triglyceride 176 mg/dL (30-150)
== END 2019-04-16 10:58 ==
LOC: NCHCN 10:38
PROVIDERS: PCP Family Medicine; Visit Provider Family Medicine
DX: E11.9 Type 2 diabetes mellitus without complications (principal)
CPT/HCPCS: 80048; 80061; 83036

== ENCOUNTER 2019-06-21 09:59 | Emergency (ER) | payer MEDICARE, MEDICAID, SELFPAY ==
[2019-06-21 10:02] VITALS: BP 158/86; PULSE 89; RESP 16; TEMP 36.2; O2SAT 98
--- NOTE | 2019-06-21 10:30 | DI.RAD_ITS ---
EXAM: XR CHEST 2V PA LATERAL INDICATION: fall, back pain. COMPARISON: No exams were available for comparison TECHNIQUE: 2D digital imaging was performed. FINDINGS: The heart size is within normal limits. Coronary artery stents are seen. The aorta appears normal i n diameter. There are old right rib fractures. The lungs appear clear. There is no thoracic compre ssion fracture or evidence of pneumothorax. There is no gross evidence of an acute rib fracture. IMPRESSION: No acute abnormality.
--- NOTE | 2019-06-21 10:30 | DI.RAD_ITS ---
EXAM: XR THORACIC SPINE COMPLETE INDICATION: pain, after fall out of bed. COMPARISON: No exams were available for comparison TECHNIQUE: 2D digital imaging was performed. FINDINGS: There is no evidence of thoracic compression fracture. There are mild degenerative disc changes in t he lower thoracic spine. There is no evidence of scoliosis. Coronary artery stents are incidentally noted. IMPRESSION: No acute abnormality.
--- NOTE | 2019-06-21 10:31 | ED.GENADUL_ITS ---
Discharge Plan Disposition Patient Disposition: HOME Condition: Stable Discharge Details Chief Complaint: Chest/Rib Clinical Impression: Back pain Primary Care Provider: Kalli Gamble V ED Provider: Claire Mayer Home Meds and New Rx's Prescriptions: No Action furosemide 40 MG tablet 40 mg PO BID RF: 0 clopidogrel [Plavix] 75 MG tablet 75 mg PO DAILY RF: 0 amitriptyline 50 MG tablet 100 mg PO HS RF: 0 isosorbide mononitrate 60 MG tablet extended release 24 hr 120 mg PO BID RF: 0 rosuvastatin [Crestor] 40 MG tablet 40 mg PO HS RF: 0 ranolazine [Ranexa] 500 MG tablet extended release 12 hr 500 mg PO BID RF: 0 losartan 25 MG tablet 25 mg PO DAILY RF: 0 aspirin [Aspir-81] 81 MG tablet,delayed release (DR/EC) 1 tab PO DAILY RF: 0 duloxetine [Cymbalta] 60 MG capsule,delayed release(DR/EC) 60 mg PO BID RF: 0 metoprolol succinate 100 MG tablet extended release 24 hr 100 mg PO BID RF: 0 vitamin B complex [B-Complex] 1 EACH tablet 50,000 units PO .TWICE A WEEK RF: 0 nitroglycerin [Nitrolingual] 12 GM spray,non-aerosol 1 spray Sublingual DIRECTED PRN (Reason: Chest Pain) RF: 0 oxycodone-acetaminophen 1 EACH tablet 1 ea PO BID RF: 0 pantoprazole 20 mg Tablet,Delayed Release (Dr/Ec) 20 mg PO BID RF: 0 Novolin N NPH U-100 Insulin 100 unit/mL Suspension 56 unit subcut HS RF: 0 Discharge Instructions Instructions: Back Pain (ED) Additional Instructions: Continue daily medications as previously prescribed. Follow-up with your gathering machine setter as scheduled tomorrow. Your imaging studies are reassuring today. Incidental findings of: Old right rib fractures. Multiple bilateral stable pulmonary nodules some which are partially calcified, consistent with granulomas. No acute abnormality is seen. For any increase in chest pain, worsening symptoms, alarming symptoms have imm ediate reevaluation in the emergency room as discussed. Medical Decision Making This is a 59-year-old patient who presents with a history of diabetes, coronary artery disease, reflux, hypertension and high cholesterol. Patient is a history of neuropathy. Patient presents after accidentally rolling out of bed while sleeping 9 days ago. Patient reports landing on his right side but is complaining primarily of back pain and pain with deep breathing as well as worse with change in position. Patient denies any sign of head injury, no headache, dizziness, nausea, vomiting. Patient has no complaints of neck pain. On exam patient has no significant rib tenderness bilaterally. Patient does have notable thoracic midline tenderness of his spine. Patient with rubber flap cutter strength intact in extremities. Full range of motion of extremities. Of note patient has a prosthetic of the left lower leg. Patient noted to be minimally hypertensive but otherwise has normal vital signs. Patient is in no apparent distress. X-rays of chest as well as thoracic spine were ordered. Patient agrees with plan of care. Declines medications at this time for comfort. On reevaluation of the patient after x-rays return normal when discussing follow-up plan patient has significant changes to his initial history of present illness. Patient initially declined chest pain then reports that he had chest pain after his fall requiring use of his nitro to relieve at home. Patient also reports twice in the last few nights he awoke with an estimated heart rate of 200 noting tachycardia which relieved with laying in bed and resting. Patient denies active chest pain at this time but would prefer further evaluation for his complaints. Given patient's complaints of tachycardia and chest pain will order CT of the chest to be sure there is no blunt injury to the chest. Troponins were added as well as lab evaluation. EKG ordered which reveals a regular rhythm and a heart rate of 77. Nonspecific ST abnormality noted. This was reviewed with Kyra Manley. CT chest reveals FINDINGS: There are old right rib fractures. There is a partially calcified granuloma in the right upper lobe. There are small calcifications in the hilar region, also consistent with old granulomatous disease. The heart size is normal. No pleural or pericardial effusions are seen. Coronary artery stents are present. There is an additional partially calcified granuloma in the left upper lobe and a smaller partially calcified granuloma in the posterior right upper lobe. Multiple other smaller circumscribed pulmonary nodules are seen bilaterally. There has been no change when compared with 2018. There is no evidence of pneumothorax. No acute rib fractures or spine fractures are seen. Degenerative disc changes are seen throughout. The visualized portions of the upper abdominal organs are unremarkable IMPRESSION: Old right rib fractures. Multiple bilateral stable pulmonary nodules some which are partially calcified, consistent with granulomas. No acute abnormality is seen. Troponins x2 normal. Patient offered admission for further evaluation of his chest pain at this time however he would prefer outpatient management. He does have a follow-up appoint with cardiology incidentally tomorrow. Patient's preference is discharged home at this time and close follow-up with his outpatient providers. [id number] medications recommended for relief of pain. Continued oxycodone previously prescribed for daily pain. The patient was stable and requested discharge. Prior to discharge, my usual and customary return precautions were reviewed with the patient - this included follow-up instructions and reasons to return to the Emergency Department if conditions worsens, does not improve as expected, or other new concerns arise. HPI General Date/Time Provider Initiated Documentation: 06/21/19 10:02 . HPI Narrative: Is a 59-year-old patient who presents to the emergency room after a fall out of bed while he was sleeping. Patient reports he was sleeping soundly and accidentally rolled out of his bed ultimately landing on his right side. Patient is now complaining of left-sided pain in his back near the shoulder blade area. Patient denies difficulty breathing or shortness of breath or wheezing. Denies headache, dizziness, nausea, vomiting. Denies any neck pain. Patient does report mild tingling in his arms which began today. Injury occurred 9 days ago. Patient reports persistent pain with deep breathing or change in position. Patient denies abdominal pain. Eating and drink without difficulty. No bowel changes or urinary changes. Denies hematuria. No extremity complaints. No other concerns or complaints. Patient reports the second time he rolled out of bed in the last 6 months. Related Data Home Medications Medication Instructions Recorded Confirmed amitriptyline 100 mg PO HS 08/18/14 06/21/19 clopidogrel [Plavix] 75 mg PO DAILY 08/18/14 06/21/19 furosemide 40 mg PO BID 08/18/14 06/21/19 isosorbide mononitrate 120 mg PO BID 08/18/14 06/21/19 losartan 25 mg PO DAILY 08/18/14 06/21/19 ranolazine [Ranexa] 500 mg PO BID 08/18/14 06/21/19 rosuvastatin [Crestor] 40 mg PO HS 08/18/14 06/21/19 aspirin [Aspir-81] 1 tab PO DAILY 09/14/14 06/21/19 duloxetine [Cymbalta] 60 mg PO BID 09/14/14 06/21/19 metoprolol succinate 100 mg PO BID 11/03/14 06/21/19 nitroglycerin [Nitrolingual] 1 spray SUBLINGUAL DIRECTED PRN 09/04/16 06/21/19 vitamin B complex [B-Complex] 50,000 units PO .TWICE A WEEK 09/04/16 06/21/19 oxycodone-acetaminophen 1 ea PO BID 10/22/16 06/21/19 insulin NPH isoph U-100 human 56 unit SUBCUT HS 06/04/18 06/21/19 [Novolin N NPH U-100 Insulin] pantoprazole 20 mg PO BID 06/04/18 06/21/19 Allergies Allergy/AdvReac Type Severity Reaction Status Date / Time lorazepam Allergy Intermediate Loopy Unverified 06/21/19 10:06 metformin Allergy Intermediate Diarrhea Unverified 06/21/19 10:06 methadone Allergy Intermediate Loopy Unverified 06/21/19 10:06 Penicillins Allergy Unknown tolerated Unverified 06/21/19 10:06 Zosyn on admission 06/2016 insulin glargine, human AdvReac Intermediate Diarrhea Unverified 06/21/19 10:06 recombin. a [From Lantus] gabapentin AdvReac Mild loopy Unverified 06/21/19 10:06 morphine AdvReac Unknown Flushing Unverified 06/21/19 10:06 when given too fast General Stated Complaint: Chest/Rib CARLOS EDUARDO: 4 Review of Systems All systems reviewed & are unremarkable except as noted in HPI and below Constitutional Constitutional: Denies chills, Denies fatigue, Denies fever(s), Denies headache(s), Denies lethargy and Denies malaise ENT Ears, Nose, Mouth, and Throat: Denies headache(s) and Denies neck pain Cardiovascular Cardiovascular: Denies chest pain, Denies chest pain at rest, Denies chest pain with activity, Denies syncope, Denies dyspnea and Denies dyspnea on exertion Respiratory Respiratory: Reports cough, Denies dyspnea, Denies dyspnea on exertion and Reports wheezing Gastrointestinal Gastrointestinal: Denies abdominal pain, Denies diarrhea, Denies nausea and Denies vomiting Genitourinary Genitourinary: Denies hematuria Musculoskeletal Musculoskeletal: Denies abnormal gait, Reports back pain, Denies neck pain, Denies numbness and Reports tingling Neurologic Neurologic: Denies abnormal gait, Denies syncope, Denies headache(s), Denies numbness and Reports tingling Endocrine Endocrine: Denies fatigue Allergic/Immunologic Allergic/Immunologic: Reports wheezing [facility] Medical History CAD (coronary artery disease) (Chronic) Diabetes mellitus (Chronic) 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 Well hydrated. Alert and alert. NECK: Normal visual inspection. FROM. No lymphadenopathy. Trachea midline. No Midline tenderness. CHEST: Normal insepection of the chest. No pain with palpation of ribs either anterior reports generally or laterally bilaterally. RESP: Normal respiratory effort. Speaking full sentences. No cough. Mild auditory wheeze. No wheezing. Mild rhonchi at bases. No retractions. Clear to auscaltation. Breath sound equal and present bilaterally. CARDIO: No JVD. Normal PMI. Regular Rate. Regular Rhythm. Normal peripheral pulses. GI: Normal inspection of abdomen. No distension. Soft. Nontender. Bowel sounds present in all 4 quadrants. No rebound. No gaurding. MUSCULOSKELETAL: Normal Gait. FROM of all extremities. Distal neurovascularly intact. Sensation intact distally. Back: No cervical tenderness with palpation. Moderate thoracic midline tenderness with palpation. No obvious step-off. No lumbar spine pain with palpation. No CVA tenderness bilaterally SKIN: Normal. Dry. No rashes. NEURO: Alert and awake. Speech clear. PSYCH: Normal affect. Cooperative. Course Vital Signs Vital signs: Vital Signs Temperature 36.2 C L 06/21/19 10:02 Pulse 89 06/21/19 10:02 Respiratory Rate 16 06/21/19 10:02 Blood Pressure 158/86 H 06/21/19 10:02 Pulse Oximetry 98 06/21/19 10:02 Temperature 36.2 C L 06/21/19 10:02 Temperature Source Skin 06/21/19 10:02 Pulse 89 06/21/19 10:02 Respiratory Rate 16 06/21/19 10:02 Respiratory Effort Non-Labored 06/21/19 10:06 Blood Pressure 158/86 H 06/21/19 10:02 Blood Pressure Position Sitting 06/21/19 10:02 Pulse Oximetry 98 06/21/19 10:02 Oxygen Delivery Method Room Air 06/21/19 10:02 Oxygen Flow Rate 0 06/21/19 10:02 Pain Level 8 06/21/19 10:02
--- NOTE | 2019-06-21 12:04 | DI.CT_ITS ---
EXAM: CT CHEST W CLINICAL HISTORY: fall, back pain, intermittent chest pain TECHNIQUE: 100 cc Omnipaque 350 IV. COMPARISON: CHEST 2 VIEWS PA,LAT from 08/24/2008 ABD PELVIS WITH CONTRAST from 01/01/2012 XR CHEST 2V PA LATERAL from 06/21/2019 FINDINGS: There are old right rib fractures. There is a partially calcified granuloma in the right upper lobe. There are small calcifications in the hilar region, also consistent with old granulomatous disease. T he heart size is normal. No pleural or pericardial effusions are seen. Coronary artery stents are pre sent. There is an additional partially calcified granuloma in the left upper lobe and a smaller parti ally calcified granuloma in the posterior right upper lobe. Multiple other smaller circumscribed pulm onary nodules are seen bilaterally. There has been no change when compared with 2018. There is no mari dence of pneumothorax. No acute rib fractures or spine fractures are seen. Degenerative disc changes are seen throughout. The visualized portions of the upper abdominal organs are unremarkable IMPRESSION: Old right rib fractures. Multiple bilateral stable pulmonary nodules some which are partially calcifi ed, consistent with granulomas. No acute abnormality is seen.
[2019-06-21 13:02] LABS: Abs Immature Grans 0.11 k/cumm (0.0-0.09); Absolute Basophil Count 0.05 k/cumm (0.0-0.2); Absolute Monocyte Count 1.09 k/cumm (0.11-0.7); Absolute Neutrophil Count 10.32 k/cumm (1.2-6.7); Basophils % 0.3; Eosinophils % 2.6; HCT 45.5 % (40.0-50.0); HGB 15.3 g/dL (13.5-17.5); Immature Grans % 0.7; Lymphocytes % 23.1; Mean Corp. HGB Concentration 33.6 g/dL (32.0-36.0); Mean Corpuscular Hemoglobin 29.4 pg (27.0-33.0); Mean Corpuscular Volume 87.5 fL (80-95); Mean Platelet Volume 11.1 fL (8.0-11.0); Neutrophils % 66.3; Platelet Count 242 x1000/uL (130-400); RBC Distribution Width 14.2 % (11.8-14.1); White Blood Cell Count 15.57 k/cumm (4.4-10.8)
[2019-06-21 13:19] LABS: ALT 39 U/L (16-63); AST 14 U/L (15-37); Albumin 3.5 g/dL (3.4-5.0); Alkaline Phosphatase 154 U/L (46-116); Anion Gap 10.5 mmol/L (3-11); BUN 32 mg/dL (7-18); Bilirubin, Total 0.3 mg/dL (0.2-1.0); CO2 27.5 mmol/L (21.0-32.0); CREATININE 1.45 mg/dL (0.70-1.30); Calcium 9.1 mg/dL (8.5-10.1); Chloride 100 mmol/L (98-107); Estimated GFR 50.16 (mL/min/1.73m2); Glucose 187 mg/dL (74-106); Potassium 4.1 mmol/L (3.5-5.1); Sodium 138 mmol/L (136-145); Total Protein 7.5 g/dL (6.4-8.2)
[2019-06-21] MEDS: Omnipaque 350 MG/ML 100 ML BTL IJ (13:21)
[2019-06-21] MEDS: Normal Saline Flush 10 ML SYR IVP (13:22)
[2019-06-21 13:23] LABS: Troponin I < 0.05 ng/Ml (<0.06)
[2019-06-21 14:12] VITALS: BP 107/74; PULSE 84; RESP 16; TEMP 36.3; O2SAT 93
[2019-06-21 16:04] LABS: Troponin I < 0.05 ng/Ml (<0.06)
[2019-06-21 16:21] VITALS: BP 106/84; PULSE 79; TEMP 36.4; O2SAT 96
== END 2019-06-21 16:21 | disposition home or self-care (01) ==
PROVIDERS: Emergency Provider Physician Assistant; PCP Family Medicine
DX: M54.6 Pain in thoracic spine (principal); R00.0 Tachycardia, unspecified; I25.10 Atherosclerotic heart disease of native coronary artery without angina pectoris; E11.9 Type 2 diabetes mellitus without complications; I10 Essential (primary) hypertension
CPT/HCPCS: 36415; 80053; 93005; 99285; 71046; 71260; 72072; 84484; 85025; 93010; J3490

== ENCOUNTER 2019-12-03 14:17 | Outpatient (REF) | payer MEDICARE, MEDICAID, SELFPAY ==
[2019-12-03 19:34] LABS: ALT 30 U/L (16-63); AST 16 U/L (15-37); Albumin 3.5 g/dL (3.4-5.0); Alkaline Phosphatase 173 U/L (46-116); Anion Gap 10.9 mmol/L (3-11); BUN 40 mg/dL (7-18); Bilirubin, Total 0.3 mg/dL (0.2-1.0); CO2 23.1 mmol/L (21.0-32.0); CREATININE 1.69 mg/dL (0.70-1.30); Calcium 8.6 mg/dL (8.5-10.1); Chloride 100 mmol/L (98-107); Estimated GFR 42.04 (mL/min/1.73m2); Glucose 208 mg/dL (74-106); Potassium 5.1 mmol/L (3.5-5.1); Sodium 134 mmol/L (136-145); TSH (W/Ref FT4) 0.18 uIU/mL (0.36-3.74); Total Protein 6.9 g/dL (6.4-8.2); Vitamin B12 829 pg/mL (193-986)
[2019-12-03 20:05] LABS: FREE T4 1.26 ng/dL (0.76-1.46)
== END 2019-12-03 14:37 ==
LOC: NCHCN 14:17
PROVIDERS: PCP Family Medicine; Visit Provider Family Medicine
DX: R42 Dizziness and giddiness (principal); E11.9 Type 2 diabetes mellitus without complications
CPT/HCPCS: 80053; 82607; 84439; 84443

== ENCOUNTER 2019-12-21 00:25 | Outpatient (CLI) | payer MEDICARE, MEDICAID, SELFPAY ==
--- NOTE | 2019-12-21 07:33 | DI.US_ITS ---
APPROVED REPORT EXAM: Comprehensive 2D, Doppler, and color-flow Echocardiogram Patient Location: Out-Patient Admissions Officer: Dilcia Esteves RDCS (AE) Indications: Dizziness, Inferior PA, LÓPEZ Other Information Study Quality: Fair Conclusion Left Ventricle : The left ventricle is normal size. There is normal left ventricular wall thickness. There is normal LV segmental wall motion. The left ventricular diastolic function is normal. LVEF is 45-50%. Right Ventricle : The right ventricle is normal size. The right ventricular systolic function is norm al. There is none of tricuspid regurgitation to estimate RVSP. Atria : The left atrium size is normal. The right atrium size is normal. Valves: There are no hemodynamically significant valvular lesions. Great Vessels : IVC is normal in size and collapses >50% with inspiration. Please see remainder of report for additional details. There are no prior studies available for comparison. Wall motion Left Ventricle The left ventricle is normal size. Left ventricular systolic function is borderline. There is normal left ventricular wall thickness. Regional wall motion abnormalities are noted. The left ventricular d iastolic function is normal. There is no ventricular septal defect visualized. LVEF is 45-50%. Right Ventricle The right ventricle is normal size. The right ventricular systolic function is normal. There is none of tricuspid regurgitation to estimate RVSP. Atria The left atrium size is normal. The right atrium size is normal. The interatrial septum is intact wit h no evidence for an atrial septal defect. Aortic Valve Aortic valve is calcified. Aortic valve is probably trileaflet. No hemodynamically significant valvul ar aortic stenosis. No aortic regurgitation is present. Mitral Valve There is mitral annular calcification. No evidence of mitral valve stenosis. Mild mitral regurgitatio n. Tricuspid Valve The tricuspid valve is normal in structure. There is no tricuspid valve stenosis. Trace tricuspid reg urgitation. Unable to assess PA pressure. Pulmonic Valve The pulmonary valve is normal in structure. There is no pulmonic valvular stenosis. There is no pulmo eliana valvular regurgitation. Great Vessels The aortic root is normal in size. The ascending aorta is normal in size. Aortic arch is normal in ca liber. IVC is normal in size and collapses >50% with inspiration. Pericardium There is no pericardial effusion. There is no pleural effusion. 2D Dimensions IVSD d PLAX 1.00 cm M: 0.6-1.2 LV Vol A2C d MOD 144.8 mL LVPW d PLAX 1.0 cm M: 0.6 - 1.2 LV Vol A4C d MOD 152.6 mL LVID d PLAX 5.50 cm M: 4.2 - 5.8 LA vol/ BSA A2C s A-L 18.5 mL/m2 LVDs 4.36 cm M: 2.5 - 4.0 LA vol/ BSA A4C s A-L 20.4 mL/m2 Ao Root d 3.26 cm M: 3.1 - 3.7 LA Vol/ BSA Biplane s A-L 20.5 mL/m2 Ao Asc Diam d 3.02 cm M: 2.6 - 3.4 LA Area A4C s MOD 17.16 cm2 LV EF Teichholz 42.6 % LA Area A2C s MOD 15.46 cm2 LVEF (Bhakta's) 46.07 % M: 52 - 72 LV EF A4C MOD 49.0 % LV Volume 107.30 mL M: 62 - 150 LV EF A2C MOD 44.5 % LV Volume Index 43.09 mL/m2 M: 34 - 74 LV EF Biplane MOD 46.1 % LV Vol Biplane MOD 153.1 mL SV 70.55 mL SV Index 28.32 mL/m2 M-Mode TAPSE 3.11 cm (M/F) >1.7 LV Diastology E Decel Time 229.00 (160-240 msec) E/A Ratio 0.87 MV E' medial 0.080 (>0.07 m/s) MV E' lateral 0.060 (>0.1 m/s) MV E/E' lateral 13.10 E Peak Velocity 0.81 m/s A Peak Velocity 0.92 m/s Aortic Valve LVOT Area 2.89 cm2 BANDAR 1.94 cm2 LVOT Vmax 1.13 m/s BANDAR Index 0.65 cm2/m2 LVOT Mean Brad. 0.77 m/s AoV Area Vmax 1.62 cm2 LVOT Peak Grad 5.1 mmHg LVOT Mean Grad 2.8 mmHg LVOT VTI 0.245 m LVOT Diam s 1.92 cm AoV Vmax 2.02 m/s Velocity Ratio 0.55 AoV Mean Brad. 7.60 m/s AoV Peak Grad 16.3 mmHg LVOT SV 70.69 mL AoV Mean Grad 1.2 mmHg AoV VTI 0.365 m AoV Area VTI 1.94 cm2 AoV Area/ BSA (VTI) 0.78 cm/m2 Mitral Valve MV DT 229 (160-240 msec) MR Vmax 4.96 m/s MV PHT 66 msec MR VTI 1.780 m MV Area PHT 3.31 cm2 MR Peak Grad 98.5 mmHg MR Mean Grad 72.2 mmHg MR PISA Radius 0.37 cm MR EROA 0.06 cm2 Pulmonary Valve PV Vmax 1.06 (0.5-1.5 m/s) PV Peak Grad 4.5 mmHg PV Mean Grad 2.3 mmHg
== END 2019-12-21 00:45 ==
PROVIDERS: PCP Family Medicine; Visit Provider Family Medicine
DX: R06.09 Other forms of dyspnea (principal); R42 Dizziness and giddiness; I25.2 Old myocardial infarction; I25.10 Atherosclerotic heart disease of native coronary artery without angina pectoris; I10 Essential (primary) hypertension
CPT/HCPCS: 93306

== ENCOUNTER 2020-02-17 01:13 | Emergency (ER) | payer MEDICARE, MEDICAID, SELFPAY ==
[2020-02-17] VITALS (13 sets, daily range): BP systolic 136–168; BP diastolic 58–97; PULSE 90–113; RESP 16–18; TEMP 36.1–37; O2SAT 95–99
--- NOTE | 2020-02-17 01:15 | RT.EKG_ITS ---
APPROVED REPORT Exam: Resting ECG Patient Location: E HR:99 bpm ECG Measurements Heart Rate 99 AXIS VT 167 P 68 QRSd 110 QRS -8 QT 362 T 73 QTc 464 <Conclusion> EKG 1: 25 Sinus rhythm, rate 99, intervals normal, no significant ST elevations or depressions, no evidence of STEMI. Q waves noted in lead III.
--- NOTE | 2020-02-17 01:22 | W.ED.GENAD ---
Discharge Plan Disposition Patient Disposition: HOME Condition: Good Discharge Details Chief Complaint: Abd Prob Clinical Impression: Chronic pancreatitis, Urinary tract infection Primary Care Provider: Kalli Gamble V ED Provider: Rohit Arcos Home Meds and New Rx's Prescriptions: New nitrofurantoin macrocrystal 100 mg capsule 100 mg PO BID 5 Days Qty: 10 RF: 0 Continued furosemide 40 MG tablet 40 mg PO BID RF: 0 clopidogrel [Plavix] 75 MG tablet 75 mg PO DAILY RF: 0 amitriptyline 50 MG tablet 100 mg PO HS RF: 0 isosorbide mononitrate 60 MG tablet extended release 24 hr 120 mg PO BID RF: 0 rosuvastatin [Crestor] 40 MG tablet 40 mg PO HS RF: 0 ranolazine [Ranexa] 500 MG tablet extended release 12 hr 500 mg PO BID RF: 0 losartan 25 MG tablet 25 mg PO DAILY RF: 0 aspirin [Aspir-81] 81 MG tablet,delayed release (DR/EC) 1 tab PO DAILY RF: 0 duloxetine [Cymbalta] 60 MG capsule,delayed release(DR/EC) 60 mg PO BID RF: 0 metoprolol succinate 100 MG tablet extended release 24 hr 100 mg PO BID RF: 0 vitamin B complex [B-Complex] 1 EACH tablet 50,000 units PO .TWICE A WEEK RF: 0 nitroglycerin [Nitrolingual] 12 GM spray,non-aerosol 1 spray Sublingual DIRECTED PRN (Reason: Chest Pain) RF: 0 oxycodone-acetaminophen 1 EACH tablet 1 ea PO BID RF: 0 pantoprazole 20 mg Tablet,Delayed Release (Dr/Ec) 20 mg PO BID RF: 0 Novolin N NPH U-100 Insulin 100 unit/mL Suspension 56 unit subcut HS RF: 0 Discharge Instructions Instructions: Pancreatitis (ED), Urinary Tract Infection in Men (ED) Additional Instructions: At this time your symptoms are consistent with acute on chronic pancreatitis. Please stick with a bland diet for the next 1 to 2 weeks. Avoid any spicy foods, citrus foods, greasy foods, or overly sugary foods. I would recommend bread, rice, applesauce, bananas. He also have a mild urinary tract infection. Please take the antibiotic as directed. If you notice any worsening of your symptoms, or any new symptoms such as vomiting, diarrhea, fever, chills, shortness of breath, chest pain, numbness, weakness, or fainting , please return immediately to the emergency department for reevaluation. Please follow up with your primary care provider as soon as possible for reassessment and reevaluation. As always, it was a pleasure participating in your medical care today. Referrals: Kalli Gamble MD [Primary Care Provider] - Discharge Data Discharge Date/Time-TO BE ENTERED AT DEPARTURE: 02/17/20 04:09 Medical Decision Making Pleasant 60-year-old male with a past medical history of cardiac disease on Plavix, previous GERD and reflux, diabetes, presents today for evaluation of epigastric pain. Patient states that for the last 2 weeks he has had a gnawing achy-like sensation in the epigastric region, radiates to both sides and then all the way to his back. Not particularly worsened or relieved by anything. He denies any significant citrus or spicy food intake. He does occasionally eat sliced tomatoes but that is the only tomato-based product he eats. He denies any burning sensation like his normal GERD. He denies any complaints of diarrhea, vomiting, hematemesis, hemoptysis, melena, or hematochezia. Patient states that his symptoms did seem to begin when he was transitioned from ranitidine to famotidine 2 weeks ago. He denies any other complaints at this time. No other modifying factors. He denies any chest pain, chest tightness, shortness of breath, arm neck or shoulder pain. Physical exam demonstrates mild bloating, bowel sounds are present, mild epigastric tenderness, no pain at McBurney's point, negative Morris sign. Differential at this time includes chronic gastritis, chronic pancreatitis, potentially mass especially with the notable bloating. We did a CT scan, give Protonix, gently rehydrate, give GI cocktail, monitor closely and reassess. [address] scan has returned, there is evidence of a pancreatitis versus artifact, however with the patient's clinical symptoms would certainly seem to confirm this. Lipase was normal however the patient's clinical symptoms are certainly indicative of chronic pancreatitis. Patient also shows evidence of mild urinary tract infection. Clinically he shows no signs of pyelonephritis with fever chills, or other abnormalities. On initial review the patient does seem to have an elevated white count of 16, however on chronic review of all of his old labs that he seems to demonstrate a chronic elevation in his WBC count. Clinically the patient does not demonstrate evidence of pyelonephritis. Renal function is notably stable in comparison with his baseline. Patient's pain is stable. At this time I see no acute evidence of an acute surgical process in the abdomen. Do recommend bland diet for the next 2 weeks, close follow-up with his PCP, good hydration, we will give nitrofurantoin for treatment of his urinary tract infection. On review of the patient's medications I do not see a clear iatrogenic cause of his pancreatitis. Potentially related to his chronic diabetes versus potential diet. Discussed red flags which to return. I have extensively reviewed the treatment plan and discharge instructions with the patient. I have addressed all patient concerns at this time. The patient was made aware of what symptoms to monitor for that would warrant a return to the emergency department. Discussed the plan with the patient, they demonstrate verbal understanding and agreement with our assessment and plan at this time. FINDINGS: Coronary stents noted. Minimal subsegmental atelectasis versus scarring Liver: Normal. No mass. Gallbladder and bile ducts: No calcified stones. No ductal dilation. Pancreas: Question faint peripancreatic infiltration versus artifact No ductal dilation. Spleen: Normal. No splenomegaly. Adrenals: 12 mm left adrenal nodule Kidneys and ureters: Normal. No hydronephrosis. Stomach and bowel: No obstruction. Mild mucosal thickening. Moderate stool in the colon Appendix: No evidence of appendicitis. Intraperitoneal space: Unremarkable. No free air. No significant fluid collection. Vasculature: Unremarkable. No abdominal aortic aneurysm. Lymph nodes: Unremarkable. No enlarged lymph nodes. Bladder: Unremarkable as visualized. Reproductive: Unremarkable as visualized. Bones/joints: Degenerative changes in the spine most pronounced at L1-L2 No acute fracture. Soft tissues: Unremarkable. IMPRESSION: Question faint pancreatitis versus artifact. Correlation with amylase and lipase levels as clinically indicated Nonspecific nonobstructed bowel gas pattern which may represent mild enteritis versus mild ileus secondary to constipation Indeterminate left adrenal nodule. Findings are grossly stable since 05/2018 Coronary artery disease Thank you for allowing us to participate in the care of your patient. Dictated and Authenticated by: Sedrick Burgos MD 02/17/2020 3:45 AM Eastern Time ([place] & [place]) EKG 1: 25 Sinus rhythm, rate 99, intervals normal, no significant ST elevations or depressions, no evidence of STEMI. Q waves noted in lead III. HPI General Date/Time Provider Initiated Documentation: 02/17/20 01:15. HPI Narrative: Pleasant 60-year-old male with a past medical history of cardiac disease on Plavix, previous GERD and reflux, diabetes, presents today for evaluation of epigastric pain. Patient states that for the last 2 weeks he has had a gnawing achy-like sensation in the epigastric region, radiates to both sides and then all the way to his back. Not particularly worsened or relieved by anything. He denies any significant citrus or spicy food intake. He does occasionally eat sliced tomatoes but that is the only tomato-based product he eats. He denies any burning sensation like his normal GERD. He denies any complaints of diarrhea, vomiting, hematemesis, hemoptysis, melena, or hematochezia. Patient states that his symptoms did seem to begin when he was transitioned from ranitidine to famotidine 2 weeks ago. He denies any other complaints at this time. No other modifying factors. He denies any chest pain, chest tightness, shortness of breath, arm neck or shoulder pain. Related Data Home Medications Medication Instructions Recorded Confirmed amitriptyline 100 mg PO HS 08/18/14 06/21/19 clopidogrel [Plavix] 75 mg PO DAILY 08/18/14 06/21/19 furosemide 40 mg PO BID 08/18/14 06/21/19 isosorbide mononitrate 120 mg PO BID 08/18/14 06/21/19 losartan 25 mg PO DAILY 08/18/14 06/21/19 ranolazine [Ranexa] 500 mg PO BID 08/18/14 06/21/19 rosuvastatin [Crestor] 40 mg PO HS 08/18/14 06/21/19 aspirin [Aspir-81] 1 tab PO DAILY 09/14/14 06/21/19 duloxetine [Cymbalta] 60 mg PO BID 09/14/14 06/21/19 metoprolol succinate 100 mg PO BID 11/03/14 06/21/19 nitroglycerin [Nitrolingual] 1 spray SUBLINGUAL DIRECTED PRN 09/04/16 06/21/19 vitamin B complex [B-Complex] 50,000 units PO .TWICE A WEEK 09/04/16 06/21/19 oxycodone-acetaminophen 1 ea PO BID 10/22/16 06/21/19 Novolin N NPH U-100 Insulin 56 unit SUBCUT HS 06/04/18 06/21/19 pantoprazole 20 mg PO BID 06/04/18 06/21/19 nitrofurantoin macrocrystal 100 mg PO BID 5 Days #10 cap 02/17/20 Previous Rx's Medication Instructions Recorded nitrofurantoin macrocrystal 100 mg PO BID 5 Days #10 cap 02/17/20 Allergies Allergy/AdvReac Type Severity Reaction Status Date / Time lorazepam Allergy Intermediate Loopy Unverified 02/17/20 01:19 metformin Allergy Intermediate Diarrhea Unverified 02/17/20 01:19 methadone Allergy Intermediate Loopy Unverified 02/17/20 01:19 Penicillins Allergy Unknown tolerated Unverified 02/17/20 01:19 Zosyn on admission 06/2016 insulin glargine, human AdvReac Intermediate Diarrhea Unverified 02/17/20 01:19 recombin. 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) GERD (gastroesophageal reflux disease) (Chronic) HTN (hypertension) (Chronic) Hypercholesterolemia (Chronic) Migraine (Chronic) Neuropathy (Chronic) Obesities, morbid (Chronic) DARIO (obstructive sleep apnea) (Chronic) Surgical History History of heart artery stent (Chronic) History of lung biopsy (Inactive) S/P foot surgery (Inactive) Status post below knee amputation of left lower extremity (Chronic) Social History Smoking/Tobacco Use Status: Current-Occasional Tobacco Type: cigarettes Alcohol Intake: current Alcohol Intake frequency: holidays/special occasions only Alcohol type: hard liquor Drug use: Never Substance use type: does not use Do you feel safe at home: Yes Do you feel safe in your relationship?: Yes Exam Narrative Exam Narrative: 1.Const: Well-nourished, Well-developed, appearing stated age 2.Eyes: PERRL, no conjunctival injection, and symmetrical lids. 3.ENT: Atraumatic external nose and ears. Moist MM. Neck: Symmetric, trachea midline, No thyromegaly. 4.CVS: +S1/S2, No murmurs or gallops. Peripheral pulses 2+ and equal in all extremities. Brisk capillary refill in all extremities. 5.RESP: Unlabored respiratory effort. Clear to auscultation bilaterally. No wheezes rales or rhonchi 6.GI: Soft, mild bloating, mild tenderness in the epigastric region throughout the left and right. No pain at McBurney's point, negative Morris sign. 7.MSK: Normocephalic/Atraumatic except for, Extremities w/o deformity or ttp No cyanosis or clubbing, Normal movement of all extremities 8.Skin: Warm, Dry. No rashes or lesions. 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 Sensation grossly intact, no focal neurologic deficits. 10.Psych: (AAO) x3. Appropriate mood and affect Course Vital Signs Vital signs: Vital Signs Temperature 36.1 C L 02/17/20 01:16 Pulse 110 H 02/17/20 01:16 Respiratory Rate 18 02/17/20 01:16 Blood Pressure 168/97 H 02/17/20 01:16 Pulse Oximetry 97 02/17/20 01:16 Temperature 36.1 C L 02/17/20 01:16 Temperature Source Temporal Artery Scan 02/17/20 01:16 Pulse 110 H 02/17/20 01:16 Respiratory Rate 18 02/17/20 01:16 Respiratory Effort Non-Labored 02/17/20 01:19 Blood Pressure 168/97 H 02/17/20 01:16 Blood Pressure Position Sitting 02/17/20 01:16 Pulse Oximetry 97 02/17/20 01:16 Oxygen Delivery Method Room Air 02/17/20 01:16 Oxygen Flow Rate 0 02/17/20 01:16 Pain Level 8 02/17/20 01:16
[2020-02-17] MEDS: Normal Saline 500 ML IV (01:38)
[2020-02-17] MEDS: Pantoprazole 40 MG VIAL IVP (01:40)
[2020-02-17 01:51] LABS: Abs Immature Grans 0.13 k/cumm (0.0-0.09); Absolute Basophil Count 0.05 k/cumm (0.0-0.2); Absolute Lymphocyte Count 3.08 k/cumm (1.2-3.4); Basophils % 0.3; Eosinophils % 1.8; Immature Grans % 0.8 %; Lymphocytes % 18.9; Mean Corp. HGB Concentration 33.3 g/dL (32.0-36.0); Mean Corpuscular Hemoglobin 29.3 pg (27.0-33.0); Mean Corpuscular Volume 87.9 fL (80-95); Mean Platelet Volume 11.4 fL (8.0-11.0); Monocytes % 7.2; Platelet Count 252 x1000/uL (130-400); RBC 5.46 m/cumm (4.50-6.00); RBC Distribution Width 13.8 % (11.8-14.1); White Blood Cell Count 16.28 k/cumm (4.4-10.8)
[2020-02-17 01:52] LABS: Absolute Eosinophil Count 0.29 k/cumm (0.0-0.7); Absolute Monocyte Count 1.17 k/cumm (0.11-0.7); Absolute Neutrophil Count 11.56 k/cumm (1.2-6.7)
[2020-02-17 02:07] LABS: PTT Activated 23.4 sec (21.0-31.4); Prothrombin Time 9.7 sec (9.3-11.0)
[2020-02-17 02:08] LABS: ALT 33 U/L (16-63); AST 20 U/L (15-37); Albumin 3.5 g/dL (3.4-5.0); Alkaline Phosphatase 160 U/L (46-116); Anion Gap 11.9 mmol/L (3-11); BUN 28 mg/dL (7-18); Bilirubin, Total 0.4 mg/dL (0.2-1.0); CO2 24.1 mmol/L (21.0-32.0); CREATININE 1.41 mg/dL (0.70-1.30); Calcium 9.3 mg/dL (8.5-10.1); Chloride 98 mmol/L (98-107); Estimated GFR 51.63 (mL/min/1.73m2); Glucose 340 mg/dL (74-106); Lipase 331 U/L (73-393); Potassium 4.2 mmol/L (3.5-5.1); Sodium 134 mmol/L (136-145); Total Protein 7.8 g/dL (6.4-8.2)
[2020-02-17 02:11] LABS: Troponin I < 0.05 ng/mL (<0.06)
[2020-02-17 02:17] LABS: Bilirubin Negative (Negative); Blood Trace-intact (Negative); Clarity Clear (Clear); Glucose 500 mg/dL (Negative); Ketones Negative (Negative); Leukocyte Esterase Small (Negative); Nitrite Negative (Negative)
[2020-02-17 02:24] LABS: Bacteria Few HPF (Negative); C & S Indicated? Yes; Casts Negative LPF (Negative); Crystals Negative HPF (Negative); Epithelial Cells Few HPF (Negative); Mucus Negative (Negative); RBC 0-2 HPF (0-2)
--- NOTE | 2020-02-17 03:14 | DI.CT_ITS ---
EXAM: CT ABDOMEN PELVIS W CLINICAL HISTORY: epigastric pain, radiates to back, band like TECHNIQUE: Imaging Protocol: Axial computed tomography images with coronal and sagittal reformatted images were created and reviewed CONTRAST MATERIAL: Intravenous: Omnipaque 350 Contrast volume:100 mL Oral: No FINDINGS: ABDOMEN: Lung Bases: There is a stable right lower lobe pulmonary nodule. No acute infiltrates are seen. Liver: Normal density. No measurable mass. Portal, Superior Mesenteric, and Splenic Veins: Unremarkable. Gallbladder and Biliary Tract: No radiodense calculus or dilation. Pancreas: Normal density. No abnormal calcifications. Mild increased attenuation in the fat surroun ding the pancreatic head. This may represent an acute pancreatitis. Please correlate clinically. Spleen: Normal. Adrenals: Stable left adrenal nodule. Unremarkable right adrenal gland. Kidneys: Normal size, contour and axis. No radiodense stones or obstructive uropathy. No masses seen. Abdominal Aorta: Abdominal portion non-dilated. Atherosclerosis. Bowel: No obstruction or bowel wall thickening. Appendix is unremarkable. Moderate amount of retained stool. Peritoneal Cavity: No ascites, collection or mesenteric inflammatory response. Lymph Nodes: Within normal limits. Bones: Degenerative changes. Soft Tissues: Unremarkable. PELVIS: Bladder: Symmetric distention, no gross wall thickening. Reproductive Organs: Unremarkable as visualized. Lymph Nodes: Within normal limits. Bones: Degenerative changes. IMPRESSION: Mild increased attenuation in the fat adjacent to the pancreatic head. This can be seen with acute p ancreatitis. Please correlate clinically. RADIATION DOSE DELIVERED: Total DLP DATA REPOSITORY: All CT scans at this facility are submitted to the National Radiology Data Registry (NRDR) Dose Index Registry (DIR) with the [employer] (A[employer]). RADIATION OPTIMIZATION: All CT scans at this facility use at least one of these dose optimization te chniques: automated exposure control; mA and/or kV adjustment per patient size (includes targeted exa ms where dose is matched to clinical indication); or iterative reconstruction.
[2020-02-17] MEDS: Normal Saline Flush 10 ML SYR IVP (03:15)
[2020-02-17] MEDS: Normal Saline - Diluent 50 ML VIAL IV (03:17)
[2020-02-17] MEDS: Omnipaque 350 MG/ML 100 ML BTL IJ (03:17)
--- NOTE | 2020-02-17 03:45 | DI.VRAD_ITS ---
PROCEDURE INFORMATION: Exam: CT Abdomen And Pelvis With Contrast Exam date and time: 02/17/2020 1:22 AM Age: 60 years old Clinical indication: Abdominal pain; Epigastric TECHNIQUE: Imaging protocol: Computed tomography of the abdomen and pelvis with intravenous contrast. Radiation optimization: All CT scans at this facility use at least one of these dose optimization techniques: automated exposure control; mA and/or kV adjustment per patient size (includes targeted exams where dose is matched to clinical indication); or iterative reconstruction. Contrast material: [id number]; Contrast volume: 100 ml; Contrast route: INTRAVENOUS (IV); COMPARISON: CR ABDOMEN FLAT PLATE 02/23/2017 4:31 PM FINDINGS: Coronary stents noted. Minimal subsegmental atelectasis versus scarring Liver: Normal. No mass. Gallbladder and bile ducts: No calcified stones. No ductal dilation. Pancreas: Question faint peripancreatic infiltration versus artifact No ductal dilation. Spleen: Normal. No splenomegaly. Adrenals: 12 mm left adrenal nodule Kidneys and ureters: Normal. No hydronephrosis. Stomach and bowel: No obstruction. Mild mucosal thickening. Moderate stool in the colon Appendix: No evidence of appendicitis. Intraperitoneal space: Unremarkable. No free air. No significant fluid collection. Vasculature: Unremarkable. No abdominal aortic aneurysm. Lymph nodes: Unremarkable. No enlarged lymph nodes. Bladder: Unremarkable as visualized. Reproductive: Unremarkable as visualized. Bones/joints: Degenerative changes in the spine most pronounced at L1-L2 No acute fracture. Soft tissues: Unremarkable. IMPRESSION: Question faint pancreatitis versus artifact. Correlation with amylase and lipase levels as clinically indicated Nonspecific nonobstructed bowel gas pattern which may represent mild enteritis versus mild ileus secondary to constipation Indeterminate left adrenal nodule. Findings are grossly stable since 05/2018 Coronary artery disease Dictated and Authenticated by: Sedrick Burgos MD. Ordering:PAYTON Bee MD
== END 2020-02-17 04:09 | disposition home or self-care (01) ==
PROVIDERS: Emergency Provider Student in an Organized Health Care Education/Training Program; PCP Family Medicine
DX: K86.1 Other chronic pancreatitis (principal); N39.0 Urinary tract infection, site not specified; E11.9 Type 2 diabetes mellitus without complications; Z79.4 Long term (current) use of insulin; I10 Essential (primary) hypertension
CPT/HCPCS: 36415; 80053; 83690; 93005; 96361; 96374; 99285; 74177; 81003; 81015; 84484; 85025; 85610; 85730; 87086; 93010; J3490

== ENCOUNTER 2020-05-05 16:33 | Emergency (ER) | payer MEDICARE, MEDICAID, SELFPAY ==
[2020-05-05] VITALS (44 sets, daily range): BP systolic 96–164; BP diastolic 48–126; PULSE 53–101; RESP 8–22; TEMP 36.6–37.1; O2SAT 94–100
--- NOTE | 2020-05-05 16:30 | RT.EKG_ITS ---
APPROVED REPORT Exam: Resting ECG Patient Location: E HR:80 bpm ECG Measurements Heart Rate 80 AXIS ME 187 P 62 QRSd 119 QRS -10 QT 408 T 82 QTc 470 Conclusion Sinus rhythm...normal P axis, V-rate 60- 99 Nonspecific intraventricular conduction delay...QRSd >115mS, not LBBB/RBBB Low voltage, precordial leads...precordial leads <1.0mV I have reviewed and interpreted ECG and agree with software generated interpretation.
--- NOTE | 2020-05-05 17:11 | ED.GENADUL_ITS ---
Discharge Plan Discharge Details Chief Complaint: Dizzy/Sync Clinical Impression: Poorly controlled diabetes mellitus, Acute dehydration Primary Care Provider: Kalli Gamble V ED Provider: July Orr Home Meds and New Rx's Prescriptions: Continued clopidogrel [Plavix] 75 MG tablet 75 mg PO DAILY RF: 0 amitriptyline 50 MG tablet 100 mg PO HS RF: 0 isosorbide mononitrate 60 MG tablet extended release 24 hr 120 mg PO BID RF: 0 rosuvastatin [Crestor] 40 MG tablet 40 mg PO HS RF: 0 ranolazine [Ranexa] 500 MG tablet extended release 12 hr 500 mg PO BID RF: 0 aspirin [Aspir-81] 81 MG tablet,delayed release (DR/EC) 1 tab PO DAILY RF: 0 duloxetine [Cymbalta] 60 MG capsule,delayed release(DR/EC) 60 mg PO BID RF: 0 metoprolol succinate 100 MG tablet extended release 24 hr 100 mg PO BID RF: 0 insulin aspart U-100 [Novolog Flexpen U-100 Insulin] 100 unit/mL (3 mL) insulin pen SUBCUT RF: 0 Tresiba FlexTouch U-200 200 unit/mL (3 mL) insulin pen SUBCUT RF: 0 vitamin B complex [B-Complex] 1 EACH tablet 50,000 units PO .TWICE A WEEK RF: 0 nitroglycerin [Nitrolingual] 12 GM spray,non-aerosol 1 spray Sublingual DIRECTED PRN (Reason: Chest Pain) RF: 0 oxycodone-acetaminophen 1 EACH tablet 1 ea PO BID RF: 0 pantoprazole 20 mg Tablet,Delayed Release (Dr/Ec) 20 mg PO BID RF: 0 Novolin N NPH U-100 Insulin 100 unit/mL Suspension 56 unit subcut HS RF: 0 Changed furosemide 40 MG tablet 40 mg PO DAILY Qty: 0 RF: 0 Discontinued losartan 25 MG tablet 25 mg PO DAILY RF: 0 Discharge Instructions Instructions: Dehydration (ED), Type 2 Diabetes Management for Adults (ED) Additional Instructions: drink at least 6-8 glasses of water daily. hold your losartan until you discuss with your primary care provider cut your lasix down to daily dosing, not twice daily until instructed by your primary care have lab drawn on Friday. call your doctor friday morning for f/u appointment in 1-2 days Referrals: Kalli Gamble MD [Primary Care Provider] - Discharge Data Discharge Date/Time-TO BE ENTERED AT DEPARTURE: 05/05/20 21:35 Medical Decision Making Patient presents for complaints of lightheaded/dizziness similar to episodes he has had in the past. He denies any recent illness. He does appear dehydrated with oral mucosa quite dry. Will obtain IV access, give normal saline 500 cc bolus, send CBC CMP troponin INR UA. Check orthostatic vital signs. LYING 104/77 HR 53 sitting 96/50 HR 76 standing 113/62 HR 84 given 1 liter of NS with resolution of his symptoms. repeat orthostatic vs lying 131/59 HR 82 sitting 133/66 HR 86 standing 140/64 HR 87 labs reviewed. found to have acute on chronic renal failure, likely d/t dehydration secondary to poorly controlled diabetes. His troponin likely elevated d/t renal failure and not cardiac. His EKG shows no acute changes. his repeat troponin 0.15 same as initial. He received 1 1/2 liter of NS prior to discharge discussed observation admission vs home with outpatient f/u and patient wishes to be discharged for outpatient f/u. He will return sooner for new or worsening symptoms. would benefit from diabetes education and management with hemoglobin A1C of 12.1. should have repeat blood work on Friday, BMP will hold losartan in setting on BRAYAN, cut lasix in half. f/u with pcp 1-2 days HPI General Date/Time Provider Initiated Documentation: 05/05/20 16:51 . Limitations to Documentation: no limitations . Information obtained by: patient . HPI Narrative: This is a 60-year-old gentleman with an extensive past medical history including diabetes mellitus poorly controlled left lower below the knee amputation obstructive sleep apnea coronary artery disease status post stent who reports a several week history lightheadedness/dizziness. He states that he has been eating and drinking bowels and bladder functioning no fevers cough chest pain or shortness of breath. He states he has had similar history in the past when he was dehydrated. He denies any headaches or visual disturbance. He presented to his primary care provider's office for evaluation of his symptoms and they referred him here to the emergency department. He presented by EMS Related Data Home Medications Medication Instructions Recorded Confirmed amitriptyline 100 mg PO HS 08/18/14 05/05/20 clopidogrel [Plavix] 75 mg PO DAILY 08/18/14 05/05/20 isosorbide mononitrate 120 mg PO BID 08/18/14 05/05/20 ranolazine [Ranexa] 500 mg PO BID 08/18/14 05/05/20 rosuvastatin [Crestor] 40 mg PO HS 08/18/14 05/05/20 aspirin [Aspir-81] 1 tab PO DAILY 09/14/14 05/05/20 duloxetine [Cymbalta] 60 mg PO BID 09/14/14 05/05/20 metoprolol succinate 100 mg PO BID 11/03/14 05/05/20 nitroglycerin [Nitrolingual] 1 spray SUBLINGUAL DIRECTED PRN 09/04/16 05/05/20 vitamin B complex [B-Complex] 50,000 units PO .TWICE A WEEK 09/04/16 05/05/20 oxycodone-acetaminophen 1 ea PO BID 10/22/16 05/05/20 Novolin N NPH U-100 Insulin 56 unit SUBCUT HS 06/04/18 06/21/19 pantoprazole 20 mg PO BID 06/04/18 05/05/20 Tresiba FlexTouch U-200 unit SUBCUT 05/05/20 05/05/20 furosemide 40 mg PO DAILY #0 tab 05/05/20 05/05/20 insulin aspart U-100 [Novolog unit SUBCUT 05/05/20 05/05/20 Flexpen U-100 Insulin] Previous Rx's Medication Instructions Recorded furosemide 40 mg PO DAILY #0 tab 05/05/20 Allergies Allergy/AdvReac Type Severity Reaction Status Date / Time lorazepam Allergy Intermediate Loopy Unverified 05/05/20 16:43 metformin Allergy Intermediate Diarrhea Unverified 05/05/20 16:43 methadone Allergy Intermediate Loopy Unverified 05/05/20 16:43 Penicillins Allergy Unknown tolerated Unverified 05/05/20 16:43 Zosyn on admission 06/2016 insulin glargine, human AdvReac Intermediate Diarrhea Unverified 05/05/20 16:43 recombin. a [From Lantus] gabapentin AdvReac Mild loopy Unverified 05/05/20 16:43 morphine AdvReac Unknown Flushing Unverified 05/05/20 16:43 when given too fast General Stated Complaint: Dizzy/Sync CARLOS EDUARDO: 3 Review of Systems Constitutional Constitutional: Denies anorexia, Denies fever(s), Denies headache(s) and Denies poor appetite Eyes Eyes: Denies blurry vision and Denies loss of vision ENT Ears, Nose, Mouth, and Throat: Reports dizziness and Denies headache(s) Cardiovascular Cardiovascular: Denies chest pain, Reports leg edema (Chronic and unchanged), Reports lightheadedness and Reports dyspnea (Chronic and not worsened) Respiratory Respiratory: Denies cough and Reports dyspnea (Chronic and not worsened) Gastrointestinal Gastrointestinal: Denies abdominal pain, Denies diarrhea, Reports nausea (With symptoms of lightheadedness) and Denies vomiting Genitourinary Comments: States he is voiding well Musculoskeletal Musculoskeletal: Denies numbness Neurologic Neurologic: Denies confusion, Reports dizziness, Denies headache(s), Denies localized weakness, Denies loss of vision, Denies numbness and Denies seizure- like activity Psychiatric Psychiatric: Denies confusion Endocrine Endocrine: Denies polydipsia and Denies polyuria [facility] Medical History (Updated 05/05/20 @ 21:14 by July Orr NP) CAD (coronary artery disease) Diabetes mellitus Dissection of artery of upper extremity GERD (gastroesophageal reflux disease) HTN (hypertension) Hypercholesterolemia Migraine Neuropathy Obesities, morbid DARIO (obstructive sleep apnea) Surgical History History of heart artery stent History of lung biopsy S/P foot surgery Status post below knee amputation of left lower extremity Social History Smoking/Tobacco Use Status: Current-Occasional Tobacco Type: cigarettes Alcohol Intake: never Drug use: Never Substance use type: does not use Do you feel safe at home: Yes Do you feel safe in your relationship?: Yes Exam Const General: cooperative, comfortable, no acute distress and ill appearing chronica lly Nutritional Appearance: obese Orientation: alert, awake and oriented x3 HENMT Head: normal to inspection Ears: unable to visualize TM on the right and other (Cerumen impaction right ear left TM is visualized with no effusion noted) Mouth: oral mucosa abnormal (Oral mucosa is dry) Resp Effort & Inspection: normal respiratory effort Auscultation: clear to auscultation bilaterally Cardio Rate: regular rate Rhythm: regular rhythm GI Inspection: normal to inspection Palpation: soft Auscultation: normal bowel sounds Skin General skin exam: no rashes or lesions noted Extrem General: full ROM and amputation noted Below the knee: left Right lower extremity: edema (Trace) Details: non-pitting Course Vital Signs Vital signs: Vital Signs Temperature 36.6 C 05/05/20 16:38 Pulse 81 05/05/20 16:38 Respiratory Rate 16 05/05/20 16:38 Blood Pressure 119/66 05/05/20 16:38 Pulse Oximetry 94 05/05/20 16:38 Temperature 36.6 C 05/05/20 16:38 Temperature Source Tympanic 05/05/20 16:38 Pulse 81 05/05/20 16:38 Respiratory Rate 16 05/05/20 16:45 Respiratory Effort 05/05/20 16:45 Respiratory Depth Normal 05/05/20 16:45 Respiratory Pattern Normal 05/05/20 16:45 Blood Pressure 119/66 05/05/20 16:38 Blood Pressure Position Sitting 05/05/20 16:38 Pulse Oximetry 94 05/05/20 16:38 Oxygen Delivery Method Room Air 05/05/20 16:38 Oxygen Flow Rate 0 05/05/20 16:38 Pain Level 0 05/05/20 16:38
[2020-05-05 17:22] LABS: Abs Immature Grans 0.29 10^3/uL (0.0-0.06); Absolute Basophil Count 0.06 10^3/uL (0.0-0.2); Absolute Eosinophil Count 0.09 10^3/uL (0.0-0.7); Absolute Lymphocyte Count 1.26 10^3/uL (1.2-3.4); Absolute Monocyte Count 0.33 10^3/uL (0.1-0.8); Basophils % 0.9; Eosinophils % 1.3; HGB 14.2 g/dL (13.5-17.5); Immature Grans % 4.1; Lymphocytes % 17.9; MCH 29.4 pg (27.0-33.0); MCHC 33.8 % (32.0-36.0); MPV 12.5 fL (8.0-11.0); Monocytes % 4.7; Neutrophils % 71.1; Nucleated RBC 0 %; Platelet Count 108 10^3/uL (130-400); RBC 4.83 10^6/uL (4.36-5.78); RDW 13.7 % (11.8-14.1); RDW-SD 43.9 fL; WBC 7.03 10^3/uL (4.4-10.8)
[2020-05-05 17:30] LABS: Prothrombin Time 10.1 sec (9.3-11.0)
[2020-05-05 17:36] LABS: ALT 89 U/L (16-63); AST 64 U/L (15-37); Albumin 2.8 g/dL (3.4-5.0); Alkaline Phosphatase 302 U/L (46-116); Anion Gap 9.9 mmol/L (3-11); BUN 52 mg/dL (7-18); Bilirubin, Total 0.6 mg/dL (0.2-1.0); CO2 23.1 mmol/L (21.0-32.0); CREATININE 2.47 mg/dL (0.70-1.30); Calcium 8.3 mg/dL (8.5-10.1); Chloride 94 mmol/L (98-107); Estimated GFR 27.03 (mL/min/1.73m2); Glucose 274 mg/dL (74-106); Magnesium 1.9 mg/dL (1.8-2.4); Potassium 4.3 mmol/L (3.5-5.1); Sodium 127 mmol/L (136-145); Total Protein 6.7 g/dL (6.4-8.2)
[2020-05-05 17:38] LABS: Troponin I 0.15 ng/mL (<0.06)
[2020-05-05 18:00] LABS: Hemoglobin A1C 12.1 % (<5.7)
[2020-05-05 20:39] LABS: Troponin I 0.15 ng/mL (<0.06)
== END 2020-05-05 21:35 ==
LOC: ER 19:25
PROVIDERS: Emergency Provider Nurse Practitioner Acute Care; PCP Family Medicine
DX: E11.65 Type 2 diabetes mellitus with hyperglycemia (principal); E86.0 Dehydration; N17.9 Acute kidney failure, unspecified; E11.22 Type 2 diabetes mellitus with diabetic chronic kidney disease; Z79.4 Long term (current) use of insulin; R77.8 Other specified abnormalities of plasma proteins; I10 Essential (primary) hypertension
CPT/HCPCS: 36415; 80053; 93005; 96360; 96361; 99284; 81003; 83036; 83735; 84484; 85025; 85610; 93010

== ENCOUNTER 2020-05-08 14:41 | Outpatient (REF) | payer MEDICARE, MEDICAID, SELFPAY ==
[2020-05-08 19:16] LABS: Anion Gap 8.4 mmol/L (3-11); BUN 26 mg/dL (7-18); CO2 24.6 mmol/L (21.0-32.0); CREATININE 1.55 mg/dL (0.70-1.30); Calcium 8.2 mg/dL (8.5-10.1); Chloride 102 mmol/L (98-107); Estimated GFR 46.28 (mL/min/1.73m2); Glucose 372 mg/dL (74-106); Potassium 4.9 mmol/L (3.5-5.1); Sodium 135 mmol/L (136-145)
== END 2020-05-08 15:01 ==
LOC: NCHCN 14:41
PROVIDERS: PCP Family Medicine; Visit Provider Family Medicine
DX: I50.9 Heart failure, unspecified (principal)
CPT/HCPCS: 80048

== ENCOUNTER 2020-05-16 19:34 | Outpatient (REF) | payer MEDICARE, MEDICAID, SELFPAY ==
[2020-05-16 19:50] LABS: ALT 38 U/L (16-63); AST 20 U/L (15-37); Albumin 2.9 g/dL (3.4-5.0); Alkaline Phosphatase 199 U/L (46-116); Anion Gap 5.3 mmol/L (3-11); BUN 22 mg/dL (7-18); Bilirubin, Total 0.5 mg/dL (0.2-1.0); CO2 29.7 mmol/L (21.0-32.0); CREATININE 1.51 mg/dL (0.70-1.30); Calcium 8.7 mg/dL (8.5-10.1); Chloride 97 mmol/L (98-107); Glucose 377 mg/dL (74-106); Potassium 4.3 mmol/L (3.5-5.1); Sodium 132 mmol/L (136-145); Total Protein 5.9 g/dL (6.4-8.2)
== END 2020-05-16 19:54 ==
LOC: NCHCN 19:34
PROVIDERS: PCP Family Medicine; Visit Provider Family Medicine
DX: R42 Dizziness and giddiness (principal)
CPT/HCPCS: 80053

== ENCOUNTER 2020-05-24 09:47 | Outpatient (REF) | payer MEDICARE, MEDICAID, SELFPAY ==
[2020-05-24 21:15] LABS: Anion Gap 8.1 mmol/L (3-11); BUN 34 mg/dL (7-18); CO2 23.9 mmol/L (21.0-32.0); CREATININE 1.25 mg/dL (0.70-1.30); Calcium 9.6 mg/dL (8.5-10.1); Chloride 98 mmol/L (98-107); Estimated GFR 59.32 (mL/min/1.73m2); Glucose 397 mg/dL (74-106); Sodium 130 mmol/L (136-145)
== END 2020-05-24 10:07 ==
LOC: NCHCN 09:47
PROVIDERS: PCP Family Medicine; Visit Provider Family Medicine
DX: E86.0 Dehydration (principal); I95.9 Hypotension, unspecified; R42 Dizziness and giddiness
CPT/HCPCS: 80048

== ENCOUNTER 2020-05-24 21:10 | Emergency (ER) | payer MEDICARE, MEDICAID, SELFPAY ==
[2020-05-24 21:16] VITALS: BP 172/76; PULSE 110; RESP 18; TEMP 36.4; O2SAT 97
--- NOTE | 2020-05-24 21:45 | DI.RAD_ITS ---
EXAM: XR RIBS LT W PA LAT CHEST CLINICAL HISTORY: pain, felt pop when bending over TECHNIQUE: COMPARISON: CR XR CHEST 2V PA LATERAL from 06/21/2019 FINDINGS: PA and lateral chest and 4 additional views of the left ribs were obtained. There is minimal deformi ty of left 8th rib anteriorly which could represent a nondisplaced fracture. There are old healed fr actures of right ribs 7 and 8. Cardiac size is at the upper limits of normal. There is no evidence of acute intrapulmonary consolid ation, pneumothorax, or pleural effusion. IMPRESSION: Question nondisplaced left 8th rib fracture anteriorly. No additional significant findings. RADIATION DOSE DELIVERED: Total DLP
--- NOTE | 2020-05-24 21:45 | RT.EKG_ITS ---
APPROVED REPORT Exam: Resting ECG Patient Location: E HR:106 bpm ECG Measurements Heart Rate 106 AXIS MD 158 P 62 QRSd 105 QRS 27 QT 363 T 12 QTc 482 Conclusion Sinus tachycardia...rate> 99 Otherwise normal ECG
--- NOTE | 2020-05-24 21:54 | ED.GENADUL_ITS ---
Discharge Plan Disposition Patient Disposition: HOME Condition: Good Discharge Details Clinical Impression: Fracture of rib Primary Care Provider: Kalli Gamble V ED Provider: Oz Matthew [place] Meds and New Rx's Prescriptions: New lidocaine [Lidoderm] 5 % adhesive patch,medicated 1 patch topical DAILY Qty: 15 RF: 0 Continued clopidogrel [Plavix] 75 MG tablet 75 mg PO DAILY RF: 0 amitriptyline 50 MG tablet 100 mg PO HS RF: 0 isosorbide mononitrate 60 MG tablet extended release 24 hr 120 mg PO BID RF: 0 rosuvastatin [Crestor] 40 MG tablet 40 mg PO HS RF: 0 ranolazine [Ranexa] 500 MG tablet extended release 12 hr 500 mg PO BID RF: 0 aspirin [Aspir-81] 81 MG tablet,delayed release (DR/EC) 1 tab PO DAILY RF: 0 duloxetine [Cymbalta] 60 MG capsule,delayed release(DR/EC) 60 mg PO BID RF: 0 metoprolol succinate 100 MG tablet extended release 24 hr 100 mg PO BID RF: 0 insulin aspart U-100 [Novolog Flexpen U-100 Insulin] 100 unit/mL (3 mL) insulin pen See Rx Instructions .ROUTE .COMPLEX RF: 0 Tresiba FlexTouch U-200 200 unit/mL (3 mL) insulin pen subcut RF: 0 furosemide 40 MG tablet 40 mg PO DAILY Qty: 0 RF: 0 vitamin B complex [B-Complex] 1 EACH tablet 50,000 units PO .TWICE A WEEK RF: 0 nitroglycerin [Nitrolingual] 12 GM spray,non-aerosol 1 spray Sublingual DIRECTED PRN (Reason: Chest Pain) RF: 0 oxycodone-acetaminophen 1 EACH tablet 1 ea PO BID RF: 0 pantoprazole 20 mg Tablet,Delayed Release (Dr/Ec) 20 mg PO BID RF: 0 torsemide 20 mg tablet 20 mg PO DAILY AM RF: 0 famotidine 20 mg tablet 20 mg PO DAILY RF: 0 Discharge Instructions Instructions: How to Use an Incentive Spirometer (ED), Rib Fracture (ED) Additional Instructions: There is an isolated 8 rib fracture. This will heal on its own over 4 to 6 weeks. Use lidocaine patches as directed for pain. Incentive spirometer 10 times every hour. Follow-up with primary care in 2 to 3 weeks for recheck. Return to ED for fever, cough, increasing shortness of breath, other problems. Referrals: Kalli Gamble MD [Primary Care Provider] - Medical Decision Making Patient presenting with left lateral lower rib pain after feeling a pop while bending over. No shortness of breath. Breath sounds present bilaterally. Saturations normal. Mild tachycardia and elevated blood pressure. Recent ED visit for low blood pressure and dehydration. Repeat labs done this morning by primary care. They look much better. I do not feel this is cardiac related nor pulmonary embolus. Will obtain a chest x-ray to rule out pneumothorax. Lidoderm patch applied to left lateral chest wall. 23:00 -patient's pain is better with the Lidoderm patch. Chest x-ray with rib views do show isolated nondisplaced rib fracture of the eighth left rib. No pneumothorax. Discussed with patient. Discussed importance of incentive spirometer. Patient to follow-up with primary care in 2 to 3 weeks for recheck. Return to ED for fever, cough, shortness of breath, other concerns. Medical Records Medical records reviewed: Yes I reviewed the patient's medical records. ECG Data Attestation: I personally reviewed and interpreted this ECG (s) as follows: Interpretation: See EKG HPI General Mode of arrival: ambulatory . Date/Time Provider Initiated Documentation: 05/24/20 21:36 . Limitations to Documentation: no limitations . Information obtained by: patient, RN notes reviewed and old records reviewed . HPI Narrative: Getting patient presents to ED with left lateral rib pain after bending over and feeling a pop. He has sharp pain that is worse with movement or deep breath. He does not feel short of breath. He was not ill prior to this other than a couple weeks ago was in the ED for dehydration and had some med adjustments done. He has no fever or cough. He became concerned because his heart rate and blood pressure has been elevated since this occurred. Related Data Home Medications Medication Instructions Recorded Confirmed amitriptyline 100 mg PO HS 08/18/14 05/24/20 clopidogrel [Plavix] 75 mg PO DAILY 08/18/14 05/24/20 isosorbide mononitrate 120 mg PO BID 08/18/14 05/24/20 ranolazine [Ranexa] 500 mg PO BID 08/18/14 05/24/20 rosuvastatin [Crestor] 40 mg PO HS 08/18/14 05/24/20 aspirin [Aspir-81] 1 tab PO DAILY 09/14/14 05/24/20 duloxetine [Cymbalta] 60 mg PO BID 09/14/14 05/24/20 metoprolol succinate 100 mg PO BID 11/03/14 05/24/20 nitroglycerin [Nitrolingual] 1 spray SUBLINGUAL DIRECTED PRN 09/04/16 05/24/20 vitamin B complex [B-Complex] 50,000 units PO .TWICE A WEEK 09/04/16 05/24/20 oxycodone-acetaminophen 1 ea PO BID 10/22/16 05/24/20 pantoprazole 20 mg PO BID 06/04/18 05/24/20 Tresiba FlexTouch U-200 SUBCUT 05/05/20 05/05/20 furosemide 40 mg PO DAILY #0 tab 05/05/20 05/24/20 insulin aspart U-100 [Novolog See Rx Instructions .ROUTE .COMPLEX 05/05/20 05/24/20 Flexpen U-100 Insulin] famotidine 20 mg PO DAILY 05/24/20 05/24/20 lidocaine [Lidoderm] 1 patch TOPICAL DAILY #15 ea 05/24/20 torsemide 20 mg PO DAILY AM 05/24/20 05/24/20 Previous Rx's Medication Instructions Recorded furosemide 40 mg PO DAILY #0 tab 05/05/20 lidocaine [Lidoderm] 1 patch TOPICAL DAILY #15 ea 05/24/20 Allergies Allergy/AdvReac Type Severity Reaction Status Date / Time lorazepam Allergy Intermediate Loopy Unverified 05/24/20 21:22 metformin Allergy Intermediate Diarrhea Unverified 05/24/20 21:22 methadone Allergy Intermediate Loopy Unverified 05/24/20 21:22 Penicillins Allergy Unknown tolerated Unverified 05/24/20 21:22 Zosyn on admission 06/2016 insulin glargine, human AdvReac Intermediate Diarrhea Unverified 05/24/20 21:22 recombin. a [From Lantus] gabapentin AdvReac Mild loopy Unverified 05/24/20 21:22 morphine AdvReac Unknown Flushing Unverified 05/24/20 21:22 when given too fast General Stated Complaint: Chest/Rib CARLOS EDUARDO: 3 Review of Systems Narrative: As documented in HPI otherwise negative as below. Const: no fever, chills Resp: no cough, SOB CV: no diaphoresis, edema, syncope GI: no abdominal pain, nausea, vomiting, diarrhea Neuro: no headache, numbness, focal weakness, confusion [facility] Medical History (Updated 05/24/20 @ 22:54 by Oz Matthew MD) CAD (coronary artery disease) Diabetes mellitus Dissection of artery of upper extremity GERD (gastroesophageal reflux disease) HTN (hypertension) Hypercholesterolemia Migraine Neuropathy Obesities, morbid DARIO (obstructive sleep apnea) Surgical History History of heart artery stent History of lung biopsy S/P foot surgery Status post below knee amputation of left lower extremity Social History Smoking/Tobacco Use Status: Current-Occasional Tobacco Type: cigarettes Smoking risk assessment performed?: Yes Alcohol Intake: never Drug use: Never Substance use type: does not use Do you feel safe at home: Yes Do you feel safe in your relationship?: Yes Exam Narrative Exam Narrative: Vitals: Afebrile. Blood pressure heart rate elevated. Room air sats are normal. Const: Obese male in NAD. HEENT: NC/AT. Normal facial exam. Eyes: Normal conjunctiva and sclera. Neck: Supple. Trachea midline. Lungs: Normal respiratory effort. Lungs with few rhonchi throughout. BS present bilaterally. Cor: RRR with murmur at apex. Good radial pulses. Tenderness to left lateral lower ribs. GI: Soft. NT/ND. No guarding or rebound. Neuro: A+O x 3. Normal speech, mentation, gait. Cranial nerves II - XII grossly intact. No gross motor or sensory deficit. Ext: Left lower extremity prosthesis. Skin: Warm and dry without rash. Course Vital Signs Vital signs: Vital Signs Temperature 97.5 F L 05/24/20 21:16 Pulse 110 H 05/24/20 21:16 Respiratory Rate 18 05/24/20 21:16 Blood Pressure 172/76 H 05/24/20 21:16 Temperature 97.5 F L 05/24/20 21:16 Temperature Source Temporal Artery Scan 05/24/20 21:16 Pulse 110 H 05/24/20 21:16 Respiratory Rate 18 05/24/20 21:16 Blood Pressure 172/76 H 05/24/20 21:16 Pain Level 6 05/24/20 21:16
[2020-05-24] MEDS: Lidocaine 5% Patch 1 PATCH TP (22:37)
[2020-05-24 22:40] VITALS: BP 148/59; PULSE 102; RESP 20; O2SAT 97
--- NOTE | 2020-05-24 22:44 | DI.VRAD_ITS ---
PROCEDURE INFORMATION: Exam: XR Left Ribs Exam date and time: 05/24/2020 10:16 PM Age: 60 years old Clinical indication: Left-sided chest pain; Other: Rib pain TECHNIQUE: Imaging protocol: XR Left ribs. Views: 2 views. COMPARISON: CT CHEST W 06/21/2019 1:10 PM FINDINGS: Bones/joints: Nondisplaced rib fracture of the left 8th rib. Soft tissues: Normal. IMPRESSION: Acute left 8th rib fracture. PROCEDURE INFORMATION: Exam: XR Chest, 2 Views Exam date and time: 05/24/2020 10:16 PM Age: 60 years old Clinical indication: Left-sided chest pain; Other: Rib pain TECHNIQUE: Imaging protocol: XR of the chest Views: 2 views. COMPARISON: CT CHEST W 06/21/2019 1:10 PM FINDINGS: Lungs: Unremarkable. No consolidation. Pleural space: Unremarkable. No pleural effusion. No pneumothorax. Heart/Mediastinum: Unremarkable. No cardiomegaly. Bones/joints: Healed right rib fractures. Degenerative changes of the spine. IMPRESSION: No acute findings. Dictated and Authenticated by: Giovanny Ahuja MD. Ordering:WILMER Clinton MD
== END 2020-05-24 23:03 | disposition home or self-care (01) ==
PROVIDERS: Emergency Provider Emergency Medicine; PCP Family Medicine
DX: S22.32XA Fracture of one rib, left side, initial encounter for closed fracture (principal); X58.XXXA Exposure to other specified factors, initial encounter; I10 Essential (primary) hypertension; E11.9 Type 2 diabetes mellitus without complications; Z79.4 Long term (current) use of insulin
CPT/HCPCS: 93005; 99284; 71046; 71100; 93010

== ENCOUNTER 2020-06-15 19:54 | Outpatient (REF) | payer MEDICARE, MEDICAID, SELFPAY ==
[2020-06-15 20:15] LABS: Anion Gap 8.7 mmol/L (3-11); BUN 41 mg/dL (7-18); CO2 24.3 mmol/L (21.0-32.0); CREATININE 1.75 mg/dL (0.70-1.30); Calcium 9.3 mg/dL (8.5-10.1); Chloride 96 mmol/L (98-107); Estimated GFR 40.23 (mL/min/1.73m2); Glucose 398 mg/dL (74-106); Potassium 4.8 mmol/L (3.5-5.1); Sodium 129 mmol/L (136-145)
== END 2020-06-15 20:14 ==
LOC: NCHCN 19:54
PROVIDERS: PCP Family Medicine; Visit Provider Family Medicine
DX: I25.10 Atherosclerotic heart disease of native coronary artery without angina pectoris (principal)
CPT/HCPCS: 80048

== ENCOUNTER 2020-06-24 12:11 | Emergency (ER) | payer MEDICARE, MEDICAID, SELFPAY ==
[2020-06-24 12:18] VITALS: BP 138/69; PULSE 94; RESP 18; TEMP 36.3; O2SAT 98
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
[2020-06-24 13:54] VITALS: BP 134/77; PULSE 79; O2SAT 98
[2020-06-24 13:55] VITALS: O2SAT 98
[2020-06-24 13:56] VITALS: BP 134/77; PULSE 83; RESP 16; TEMP 36.5; O2SAT 97
== END 2020-06-24 14:25 | disposition home or self-care (01) ==
PROVIDERS: Emergency Provider Physician Assistant; PCP Family Medicine
DX: S00.03XA Contusion of scalp, initial encounter (principal); S70.12XA Contusion of left thigh, initial encounter; V43.62XA Car passenger injured in collision with other type car in traffic accident, initial encounter; E11.9 Type 2 diabetes mellitus without complications; Z79.4 Long term (current) use of insulin; I10 Essential (primary) hypertension; Z79.02 Long term (current) use of antithrombotics/antiplatelets
CPT/HCPCS: 99284; 70450; 99285

== ENCOUNTER 2020-07-05 10:16 | Outpatient (CLI) | payer MEDICARE, MEDICAID, SELFPAY ==
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
== END 2020-07-05 10:36 ==
PROVIDERS: PCP Family Medicine; Visit Provider Family Medicine
DX: M47.812 Spondylosis without myelopathy or radiculopathy, cervical region (principal)
CPT/HCPCS: 72050

== ENCOUNTER 2020-07-07 20:58 | Outpatient (REF) | payer MEDICARE, MEDICAID, SELFPAY ==
[2020-07-11 22:08] LABS: COVID-19 RT-PCR Result NEGATIVE (Negative)
== END 2020-07-07 21:18 ==
LOC: NCHCN 20:58
PROVIDERS: PCP Family Medicine; Visit Provider Family Medicine
DX: J06.9 Acute upper respiratory infection, unspecified (principal)
CPT/HCPCS: U0003

== ENCOUNTER 2020-07-13 21:54 | Outpatient (REF) | payer MEDICARE, MEDICAID, SELFPAY ==
[2020-07-17 21:20] LABS: COVID-19 RT-PCR Result Positive (Negative)
== END 2020-07-13 22:14 ==
LOC: NCHCN 21:54
PROVIDERS: PCP Family Medicine; Visit Provider Family Medicine
DX: Z20.828 Contact with and (suspected) exposure to other viral communicable diseases (principal)
CPT/HCPCS: U0003

== ENCOUNTER 2020-07-19 01:49 | Outpatient (CLI) | payer MEDICARE, MEDICAID, SELFPAY ==
[2020-07-19] VITALS (10 sets, daily range): BP systolic 110–127; BP diastolic 73–93; PULSE 77–81; RESP 16–18; TEMP 36.5–36.9; O2SAT 93–96
--- OUTSIDE RECORDS SUMMARY | 2020-07-19 01:52 | XMS_ITS ---
:1960 Author Care Team Providers Name Role Phone DR. KARINA GUZMÁN Primary Care Provider [phone] DR. KARINA GUZMÁN Referring Provider [phone] DR. RICHARD ENRIQUE Primary Care Provider [phone] DR. RICHARD ENRIQUE Referring Provider [phone] Allergies Code Code System Name Reaction Severity Status Onset 271655 RxNorm Lantus U-100 ? ? Active ? Insulin 6470 RxNorm Lorazepam ? ? Active ? 9074 RxNorm Metformin ? ? Active ? 3228 RxNorm Methadone ? ? Active ? 2033 RxNorm Morphine ? ? Active ? 622866 RxNorm Neurontin ? ? Active ? 2730 RxNorm Penicillin v ? ? Active ? Victoza ? ? Active ? Medications Name Status Start Date Stop Date ? ? amitriptyline 50 mg tablet Active ? Not a vailable Take 2 tablets every day by oral route at bedtime. aspirin 81 mg tablet,delayed release Active ? Not available Take 1 tablet every day by oral route. Crestor 40 mg tablet Active ? Not availab le Take 1 tablet every day by oral route. Cymbalta 60 mg capsule,delayed release Active ? Not available Take 1 capsule twice a day by oral route. furosemide 40 mg tablet Active ? Not avai lable TAKE 2 tablets in am and one in pm isosorbide mononitrate ER 60 mg tablet,extended release 24 hr Ac tive ? Not available Take 1 tablet twice a day by oral route. Levemir FlexTouch U-100 Insulin 100 unit/mL (3 mL) subcutaneous pen Active ? Not available Inject 70 units twice a day by subcutaneous route. losartan 25 mg tablet Active ? Not availa ble Take 1 tablet every day by oral route. metoprolol succinate ER 100 mg tablet,extended release 24 hr Act faustina ? Not available Take 1 tablet twice a day by oral route. nitroglycerin Active ? Not available 0.4 mg/spray use one spray [id number] for chest pain Novolin N NPH U-100 Insulin isophane 100 unit/mL subcutaneous diaz sp Active ? Not available Inject 30 to 60 units of Novolin N ever y bedtime as per Treat to target plan: start with N 30 add 2 units every day if prebeakfast BG is greater than 150. MAX 60 units per night. Novolog Flexpen U-100 Insulin Active ? No t available up to 33 units three times a day pantoprazole 40 mg tablet,delayed release Active ? Not available Take 1 tablet twice a day by oral route. Percocet 10 mg-325 mg tablet Active ? Not available Take 1 tablet twice a day by oral route. Plavix 75 mg tablet Active ? Not availabl e Take 1 tablet every day by oral route. Ranexa 500 mg tablet,extended release Active ? Not available Take 1 tablet twice a day by oral route. Vitamin D2 1,250 mcg (50,000 unit) capsule Active ? Not available Take 1 capsule twice a week by oral route. Problems Name Status Onset Date Source ? Type 2 Diabetes Mellitus Active ? ? Diabetic Peripheral Neuropathy Active ? ? Hyperlipidemia Active ? ? Hyponatremia Active ? ? Morbid Obesity Active ? ? Tobacco User Active ? ? Obstructive Sleep Apnea Syndrome Active ? ? Otitis Media Active ? ? Hypertensive Disorder Active ? ? Coronary Arteriosclerosis Active ? ? Gastroesophageal Reflux Disease Active ? ? Chronic Kidney Disease Active ? ? Skin Lesion Active ? ? Tachycardia Active ? ? Diarrhea Active ? ? Solitary Nodule of Lung Active ? ? Amputated below Knee Active ? ? Infection Caused by Helicobacter Pylori Active ? ? Procedures Date Name Performed by ? ? Amputation Information not avai lable Notes: Lower left leg Notes: Right femeral dissection Results Lab Results Date Name Specimen Result Interpretation Description Value Range Status Address ? 04/07/2018 Glucose, Blood ? Blood 172 ? ? [facility] - Fingerstick, capillary Glucose: Specialty: Blood mg/dl [address] [facility] 03/04/2018 Glucose, Blood ? Blood 160 ? ? [facility] - Fingerstick, capillary Glucose: Specialty: Blood mg/dl [address] [facility] Past Encounters None recorded. Social History Tobacco Smoking Status Current Every Day Smoker Notes: on e ppweek Vaccine List None recorded. Plan of Care Reminders Provider Appointments None ? ? recorded. Lab None ? ? recorded. Referral None ? ? recorded. Procedures None ? ? recorded. Surgeries None ? ? recorded. Imaging None ? ? recorded. Vitals 04/07/2018 03:30PM ENDOCRINOLOGY FOLLOW UP 30 Height Weight BMI Blood Pressure 180.34 cm 134.26 kg 41.3 kg/m2 116/70 mm[Hg] 03/04/2018 01:00PM ENDOCRINOLOGY NEW PATIENT 60 Height Weight BMI Blood Pressure 180.34 cm 134.26 kg 41.3 kg/m2 114/66 mm[Hg]
[2020-07-19] MEDS: Normal Saline Flush 10 ML SYR IVP (11:04)
[2020-07-19] MEDS: Normal Saline 500 ML 30 ML IV (11:04)
== END 2020-07-19 02:09 ==
PROVIDERS: PCP Family Medicine; Visit Provider Family Medicine
DX: U07.1 COVID-19 (principal)
CPT/HCPCS: 96365

== ENCOUNTER 2020-12-28 14:35 | Outpatient (REF) | payer MEDICARE, MEDICAID, SELFPAY ==
[2020-12-28 15:56] LABS: HGB 15.2 g/dL (13.5-17.5); MCH 28.4 pg (27.0-33.0); MCHC 32.3 % (32.0-36.0); MCV 87.9 fL (80-95); MPV 11.7 fL (8.0-11.0); Platelet Count 236 10^3/uL (130-400); RBC 5.35 10^6/uL (4.36-5.78); RDW-SD 47.6 fL; WBC 16.42 10^3/uL (4.4-10.8)
[2020-12-28 16:26] LABS: ALT 51 U/L (16-63); AST 27 U/L (15-37); Albumin 3.2 g/dL (3.4-5.0); Alkaline Phosphatase 143 U/L (46-116); Anion Gap 11.3 mmol/L (3-11); BUN 30 mg/dL (7-18); Bilirubin, Total 0.2 mg/dL (0.2-1.0); CO2 22.7 mmol/L (21.0-32.0); CREATININE 1.3 mg/dL (0.70-1.30); Calcium 9.1 mg/dL (8.5-10.1); Calculated LDL 131 mg/dL (<100); Chloride 105 mmol/L (98-107); Cholesterol 212 mg/dL (<200); Glucose 208 mg/dL (74-106); HDL Cholesterol 39 mg/dL (40-60); Potassium 4.6 mmol/L (3.5-5.1); Sodium 139 mmol/L (136-145); Total Protein 6.7 g/dL (6.4-8.2); Triglyceride 213 mg/dL (<150)
[2020-12-28 21:40] LABS: PSA, Screening 0.4 ng/mL (0.0-3.5)
== END 2020-12-28 14:36 | disposition home or self-care (01) ==
LOC: NCHCN 14:35
PROVIDERS: PCP Family Medicine; Visit Provider Family Medicine
DX: E11.9 Type 2 diabetes mellitus without complications (principal); E78.5 Hyperlipidemia, unspecified; I50.9 Heart failure, unspecified; Z12.5 Encounter for screening for malignant neoplasm of prostate
CPT/HCPCS: 80053; 80061; 84153; 85027

== ENCOUNTER 2021-04-13 03:29 | Outpatient (CLI) | payer MEDICARE, MEDICAID, SELFPAY ==
--- NOTE | 2021-04-13 | DI.CTLCSR_ITS ---
Exam(s) CT CHEST LUNG CANCER SCREEN EXAM: CT CHEST LUNG CANCER SCREEN CLINICAL HISTORY: SCREENING FOR LUNG CA, CURRENT SMOKER, F17.210 TECHNIQUE: Imaging Protocol: Axial computed tomography images with coronal and sagittal reformatted images were created and reviewed COMPARISON: CT CT CHEST W from 06/21/[address] CHEST W from 06/21/2019 FINDINGS: Tracheobronchial tree: Patent where visualized. Pulmonary parenchyma: No consolidation or dominant measurable mass. Mild paraseptal emphysematous saadia nges. There is a stable area of nodular scarring in the left upper lobe. Lung Nodules: There are stable pulmonary nodules in both lungs some of which appear calcified. The l argest nodule is in the right upper lobe laterally and measures 1.7 x 1.6 cm. No new pulmonary nodul es are identified. Mediastinum and Kiesha: No dominant adenopathy or fluid collection. Pleura: No effusion or pneumothorax. Heart: The heart is not dilated. Coronary artery calcifications. No pericardial effusion. Aorta: Thoracic aorta non-dilated.Atherosclerosis. Upper abdomen: Unremarkable. Soft Tissues: Mild bilateral gynecomastia. Bones: Within normal limits. IMPRESSION: Stable pulmonary nodules when compared to the CT scan of the chest from 06/21/2019. Lung RADS Cat 2 - Benign Appearance / Behavior: Nodules with a very low likelihood of becoming a clin ically active cancer due to size or lack of growth Lung-RADS 1.0 CATEGORIES: Category 0 - Prior chest CT exam(s) being located for comparison. Category 1 - Annual screening in 12 months. No nodules or definitely benign nodules. Category 2 - Annual screening in 12 months. Benign appearance. Nodules with low likelihood of becomin g active cancer. Category 3 - 6-month follow-up. Probably benign. Short-term follow-up suggested. Nodules with low lik elihood of becoming active cancer. Category 4A - 3-month follow-up and CT/PET if >8 mm in size. Suspicious finding. Findings which requi re additional testing. Category 4B - Findings which require additional testing and tissue sampling. Suspicious finding. Modifier S- Potentially clinically significant finding. (Non lung cancer) RADIATION DOSE DELIVERED: 97.63mGy.cm Total DLP 2.21mGy CTDIvol 97.63mGy.cm Total DLP 2.21mGy CTDIvol DATA REPOSITORY: All CT scans at this facility are submitted to the National Radiology Data Registry (NRDR) Dose Index Registry (DIR) with the [employer] (ACR). RADIATION OPTIMIZATION: All CT scans at this facility use at least one of these dose optimization te chniques: automated exposure control; mA and/or kV adjustment per patient size (includes targeted exa ms where dose is matched to clinical indication); or iterative reconstruction.
== END 2021-04-13 03:49 ==
PROVIDERS: PCP Family Medicine; Visit Provider Family Medicine
DX: F17.210 Nicotine dependence, cigarettes, uncomplicated (principal); Z12.2 Encounter for screening for malignant neoplasm of respiratory organs; R91.8 Other nonspecific abnormal finding of lung field
CPT/HCPCS: 71271

== ENCOUNTER 2021-06-14 16:11 | Outpatient (REF) | payer MEDICARE, MEDICAID, SELFPAY ==
[2021-06-14 19:16] LABS: HCT 49.6 % (40.0-50.0); HGB 15.8 g/dL (13.5-17.5); MCH 28.9 pg (27.0-33.0); MCHC 31.9 % (32.0-36.0); MCV 90.8 fL (80-95); MPV 12.1 fL (8.0-11.0); Platelet Count 240 10^3/uL (130-400); RBC 5.46 10^6/uL (4.36-5.78); RDW 14.6 % (11.8-14.1); RDW-SD 48.5 fL; WBC 18.77 10^3/uL (4.4-10.8)
[2021-06-14 19:20] LABS: ESR 33 mm/hr (0-20)
[2021-06-14 19:50] LABS: ALT 29 U/L (16-63); AST 18 U/L (15-37); Albumin 3.2 g/dL (3.4-5.0); Alkaline Phosphatase 124 U/L (46-116); Anion Gap 9.8 mmol/L (3-11); BUN 31 mg/dL (7-18); Bilirubin, Total 0.3 mg/dL (0.2-1.0); C-Reactive Protein 0.68 mg/dL (0.0-0.3); CO2 27.2 mmol/L (21.0-32.0); CREATININE 1.7 mg/dL (0.70-1.30); Calcium 8.9 mg/dL (8.5-10.1); Chloride 107 mmol/L (98-107); Estimated GFR 41.46 (mL/min/1.73m2); Glucose 131 mg/dL (74-106); Potassium 4.8 mmol/L (3.5-5.1); Sodium 144 mmol/L (136-145); TSH (W/Ref FT4) 0.26 uIU/mL (0.36-3.74); Total Protein 6.4 g/dL (6.4-8.2)
[2021-06-14 19:52] LABS: Hemoglobin A1C 8.2 % (<5.7)
[2021-06-14 20:09] LABS: FREE T4 1.05 ng/dL (0.76-1.46)
== END 2021-06-14 16:12 | disposition home or self-care (01) ==
LOC: NCHCN 16:11
PROVIDERS: PCP Family Medicine; Visit Provider Family Medicine
DX: E11.9 Type 2 diabetes mellitus without complications (principal); I10 Essential (primary) hypertension; R53.83 Other fatigue; N18.30 Chronic kidney disease, stage 3 unspecified; G47.33 Obstructive sleep apnea (adult) (pediatric)
CPT/HCPCS: 80053; 85027; 85652; 83036; 84439; 84443; 86140

== ENCOUNTER 2021-08-10 17:31 | Outpatient (REF) | payer MEDICARE, MEDICAID, SELFPAY ==
[2021-08-10 19:40] LABS: HCT 47.4 % (40.0-50.0); HGB 15.3 g/dL (13.5-17.5); MCH 29.4 pg (27.0-33.0); MCHC 32.3 % (32.0-36.0); MPV 12.2 fL (8.0-11.0); Platelet Count 243 10^3/uL (130-400); RBC 5.21 10^6/uL (4.36-5.78); RDW 14.2 % (11.8-14.1); RDW-SD 47.2 fL; WBC 18.11 10^3/uL (4.4-10.8)
[2021-08-10 20:19] LABS: BUN 39 mg/dL (7-18); CREATININE 1.8 mg/dL (0.70-1.30); Calcium 9.1 mg/dL (8.5-10.1); Chloride 105 mmol/L (98-107); Estimated GFR 38.81 (mL/min/1.73m2); Glucose 133 mg/dL (74-106); Potassium 5.6 mmol/L (3.5-5.1); Sodium 137 mmol/L (136-145)
== END 2021-08-10 17:32 | disposition home or self-care (01) ==
LOC: NCHCN 17:31
PROVIDERS: PCP Family Medicine; Visit Provider Nurse Practitioner Family
DX: R04.2 Hemoptysis (principal)
CPT/HCPCS: 80048; 85027

== ENCOUNTER 2021-08-27 13:52 | Outpatient (REF) | payer MEDICARE, MEDICAID, SELFPAY ==
[2021-08-27 21:28] LABS: Anion Gap 5.9 mmol/L (3-11); BUN 33 mg/dL (7-18); CO2 24.1 mmol/L (21.0-32.0); CREATININE 1.4 mg/dL (0.70-1.30); Calcium 9.3 mg/dL (8.5-10.1); Chloride 100 mmol/L (98-107); Estimated GFR 51.87 (mL/min/1.73m2); Glucose 165 mg/dL (74-106); Potassium 4.4 mmol/L (3.5-5.1); Sodium 130 mmol/L (136-145)
== END 2021-08-27 13:53 | disposition home or self-care (01) ==
LOC: NCHCN 13:52
PROVIDERS: PCP Family Medicine; Visit Provider Nurse Practitioner Family
DX: I95.9 Hypotension, unspecified (principal)
CPT/HCPCS: 80048

== ENCOUNTER 2021-08-30 01:25 | Outpatient (CLI) | payer MEDICARE, MEDICAID, SELFPAY ==
--- NOTE | 2021-08-30 11:00 | DI.CT_ITS ---
Exam(s) CT CHEST WO EXAM: CT CHEST WO CLINICAL HISTORY: HEMOPTYSIS,R04.2 TECHNIQUE: CT examination of the chest was performed utilizing low-dose lung cancer screening protoc ol. COMPARISON: CT CT CHEST LUNG CANCER SCREEN from 04/13/2021 FINDINGS: Images obtained through the upper abdomen show unremarkable appearance of visualized portions of the liver and spleen. The adrenals, visualized portions of the kidneys, and visualized portion of the p ancreas appear intact. There are multiple coronary artery stents and/or calcifications. There are multiple calcified hilar lymph nodes period. Mediastinal vascular structures appear intact by noncontrast criteria. Tracheobronchial tree appears intact. No pleural effusion or pleural-based mass. Multiple bilateral pulmonary nodules are again seen, unchanged from prior examination of April 16. There are multiple calcified nodules. Largest nodule is again noted in the right upper lobe james sure about 17 millimeters mean diameter period No new nodule identified.. IMPRESSION: Lung RADS Cat 2 - Benign Appearance / Behavior: Nodules with a very low likelihood of becoming a clin ically active cancer due to size or lack of growth Continue annual screening with LDCT in 12 months. Lung-RADS 1.0 CATEGORIES: Category 0 - Prior chest CT exam(s) being located for comparison. Category 1 - Annual screening in 12 months. No nodules or definitely benign nodules. Category 2 - Annual screening in 12 months. Benign appearance. Nodules with low likelihood of becomin g active cancer. Category 3 - 6-month follow-up. Probably benign. Short-term follow-up suggested. Nodules with low lik elihood of becoming active cancer. Category 4A - 3-month follow-up and CT/PET if >8 mm in size. Suspicious finding. Findings which requi re additional testing. Category 4B - Findings which require additional testing and tissue sampling. Suspicious finding. Category 4X - Category 3 or 4 nodules with additional features or imaging findings that increases the suspicion of malignancy. Modifier S- Potentially clinically significant finding. (Non lung cancer) RADIATION DOSE DELIVERED: 859.18mGy.cm Total DLP CTDIvol 859.18mGy.cm Total DLP CTDIvol RADIATION OPTIMIZATION: All CT scans at this facility use at least one of these dose optimization te chniques: automated exposure control; mA and/or kV adjustment per patient size (includes targeted exa ms where dose is matched to clinical indication); or iterative reconstruction.
== END 2021-08-30 01:45 ==
PROVIDERS: PCP Family Medicine; Visit Provider Family Medicine
DX: R91.8 Other nonspecific abnormal finding of lung field (principal); R04.2 Hemoptysis; R59.0 Localized enlarged lymph nodes
CPT/HCPCS: 71250

== ENCOUNTER → 2021-11-30 10:35 | Outpatient (BNVA) | payer MEDICARE, MEDICAID, SELFPAY | PROVIDERS: PCP Family Medicine; Referring Provider Family Medicine; Visit Provider Physical Therapy Assistant | DX: Z12.11 Encounter for screening for malignant neoplasm of colon (principal) ==

== ENCOUNTER 2021-12-20 10:17 | Outpatient (REF) | payer MEDICARE, MEDICAID, SELFPAY ==
[2021-12-20 14:56] LABS: Abs Immature Grans 0.19 10^3/uL (0.0-0.06); Absolute Basophil Count 0.11 10^3/uL (0.0-0.2); Absolute Eosinophil Count 0.37 10^3/uL (0.0-0.7); Absolute Lymphocyte Count 2.49 10^3/uL (1.2-3.4); Absolute Monocyte Count 1.01 10^3/uL (0.1-0.8); Basophils % 0.7; Eosinophils % 2.3; HCT 55.8 % (40.0-50.0); HGB 17.8 g/dL (13.5-17.5); Immature Grans % 1.2; Lymphocytes % 15.5; MCHC 31.9 % (32.0-36.0); MCV 91 fL (80-95); MPV 11.8 fL (8.0-11.0); Monocytes % 6.3; Platelet Count 220 10^3/uL (130-400); RDW 14.2 % (11.8-14.1); RDW-SD 47.2 fL; WBC 16.08 10^3/uL (4.4-10.8)
[2021-12-20 14:58] LABS: RBC 6.13 10^6/uL (4.36-5.78)
[2021-12-20 15:09] LABS: ALT 32 U/L (16-63); AST 20 U/L (15-37); Albumin 3.1 g/dL (3.4-5.0); Alkaline Phosphatase 191 U/L (46-116); Anion Gap 11.2 mmol/L (3-11); BUN 26 mg/dL (7-18); Bilirubin, Total 0.4 mg/dL (0.2-1.0); C-Reactive Protein 1.88 mg/dL (0.0-0.3); CO2 22.8 mmol/L (21.0-32.0); CREATININE 1.5 mg/dL (0.70-1.30); Calcium 9.1 mg/dL (8.5-10.1); Chloride 102 mmol/L (98-107); Glucose 257 mg/dL (74-106); Potassium 4.9 mmol/L (3.5-5.1); Sodium 136 mmol/L (136-145); Total Protein 6.8 g/dL (6.4-8.2)
[2021-12-20 15:12] LABS: Hemoglobin A1C 8.5 % (<5.7)
== END 2021-12-20 10:18 | disposition home or self-care (01) ==
LOC: NCHCN 10:17
PROVIDERS: PCP Family Medicine; Visit Provider Nurse Practitioner Family
DX: R10.9 Unspecified abdominal pain (principal); E11.9 Type 2 diabetes mellitus without complications
CPT/HCPCS: 80053; 83036; 85025; 86140

== ENCOUNTER 2021-12-22 16:48 | Emergency (ER) | payer MEDICARE, MEDICAID, SELFPAY ==
[2021-12-22] VITALS (8 sets, daily range): BP systolic 125–147; BP diastolic 60–80; PULSE 89–96; RESP 14–23; TEMP 36.6; O2SAT 94–97
--- NOTE | 2021-12-22 16:45 | RT.EKG_ITS ---
APPROVED REPORT Exam: Resting ECG Reason for Exam: chest abd pain Patient Location: E HR:93 bpm ECG Measurements Heart Rate 93 AXIS MO 160 P 70 QRSd 109 QRS 0 QT 382 T 88 QTc 476 Conclusion Sinus rhythm...normal P axis, V-rate 60- 99
--- NOTE | 2021-12-22 17:15 | DI.RAD_ITS ---
Exam(s) XR PORTABLE CHEST AP EXAM: XR PORTABLE CHEST AP CLINICAL HISTORY: chest pain radiating to back and abdomen TECHNIQUE: 2D digital imaging was performed of the chest. One image was obtained. An AP view was ob tained. COMPARISON: CR,XR XR RIBS LT W PA LAT CHEST from 05/24/[address] THORAX ABD/PEL CTA from 12/22/2021 FINDINGS: MEDIASTINUM: Normal. HEART: Normal. PULMONARY VASCULATURE: Normal. LUNGS: Clear. There is a calcified nodule in the right mid lung. PLEURAL SPACE: No pleural effusion or pneumothorax. BONE:Within normal limits for the patient's age. Old right rib fractures are present. OTHER FINDINGS:Normal. IMPRESSION: No acute pulmonary findings. DATA REPOSITORY: RADIATION DOSE DELIVERED:
--- NOTE | 2021-12-22 17:15 | DI.CT_ITS ---
Exam(s) CT THORAX ABD/PEL CTA EXAM: CT THORAX ABD/PEL CTA CLINICAL HISTORY: chest pain going to back and abdomen. TECHNIQUE: Imaging Protocol: Axial CT angiography was performed with multi-slice acquisition and m ulti-planar and/or 3D reconstructions. CONTRAST MATERIAL: Intravenous: Visipaque 320ml contrast volume:100 mL Oral: No COMPARISON: CT CT ABDOMEN PELVIS W from 02/17/[address] CHEST WO from 08/30/2021 FINDINGS: CHEST: Tracheobronchial tree: Patent where visualized. Pulmonary parenchyma: There again seen multiple pulmonary nodules. No focal consolidating infiltrate s. Pulmonary Arteries: No evidence of filling defect to suggest pulmonary emboli. Mediastinum and Kiesha: No dominant adenopathy or fluid collection. The esophagus is unremarkable. Visualized thyroid: Unremarkable. Pleura: No effusion or pneumothorax. Heart: The heart is not dilated. Coronary artery calcifications are present. No pericardial effusion . Aorta: Thoracic aorta non-dilated. There is no evidence of dissection. Atherosclerosis is present. Soft Tissues: Unremarkable. Bones: Within normal limits for the patient's age. ABDOMEN AND PELVIS: Abdomen: Celiac axis/mesenteric arteries: No evidence of occlusion or significant stenosis. Renal Arteries: No evidence of occlusion or significant stenosis. There is a single renal artery per fusing each kidney. Aorta: No evidence of occlusion or significant stenosis. No aneurysm or dissection. Atherosclerosi s is present. Pelvis: Iliac Arteries: No evidence of occlusion or significant stenosis. There is atherosclerosis present. Common Femoral Arteries: No evidence of occlusion or significant stenosis. There is atherosclerosis present. ABDOMEN: Liver: Normal density. No measurable mass. Portal, Superior Mesenteric, and Splenic Veins: Grossly unremarkable. Gallbladder and Biliary Tract: No radiodense calculus or dilation. Pancreas: Normal density. No abnormal calcifications. Question of mild stranding around the head of the pancreas. No focal fluid collection is seen. Spleen: Normal. Adrenals: No masses seen. Kidneys: Normal size, contour and axis. No radiodense stones or obstructive uropathy. No masses seen. Bowel: No obstruction or bowel wall thickening. Appendix is unremarkable. Peritoneal Cavity: No ascites, collection or mesenteric inflammatory response. No free air. Lymph Nodes: Within normal limits. Bones: Unremarkable. Soft Tissues: Unremarkable. PELVIS: Bladder: Symmetric distention, no gross wall thickening. Reproductive Organs: Unremarkable as visualized. Lymph Nodes: Within normal limits. Bones: Within normal limits. IMPRESSION: 1. Normal CT Angiogram of the chest, abdomen and pelvis. 2. Stable pulmonary nodules. 3. There is a question of mild stranding around the head of the pancreas. Acute pancreatitis should be considered. Please correlate clinically. No peripancreatic fluid collections are present. RADIATION DOSE DELIVERED: 1,387.83mGy.cm Total DLP DATA REPOSITORY: All CT scans at this facility are submitted to the National Radiology Data Registry (NRDR) Dose Index Registry (DIR) with the [employer] (ACR). RADIATION OPTIMIZATION: All CT scans at this facility use at least one of these dose optimization te chniques: automated exposure control; mA and/or kV adjustment per patient size (includes targeted exa ms where dose is matched to clinical indication); or iterative reconstruction.
--- NOTE | 2021-12-22 17:28 | W.ED.GENAD ---
Discharge Plan Disposition Patient Disposition: HOME Condition: Improving Discharge Details Chief Complaint: Abd Prob Clinical Impression: Chest pain, Abdominal pain Primary Care Provider: Kalli Gamble V ED Provider: Chemo Jerome Home Meds and New Rx's Prescriptions: No Action furosemide 20 mg tablet 20 mg PO DAILY polyethylene glycol 3350 17 gram/dose powder 238 g PO ONCE Qty: 238 0RF Rx Instructions: take per colonoscopy instructions bisacodyl [Dulcolax (bisacodyl)] 5 mg tablet,delayed release (DR/EC) 5 mg PO ONCE Qty: 4 0RF Rx Instructions: take per colonoscopy instructions famotidine 20 mg tablet 20 mg PO DAILY rosuvastatin 40 mg tablet 40 mg PO DAILY aspirin 81 mg tablet,delayed release (DR/EC) 81 mg PO DAILY clopidogrel 75 mg tablet 75 mg PO DAILY insulin aspart U-100 [Novolog PenFill U-100 Insulin] 100 unit/mL cartridge 1 sliding scale dose subcut USEASDIRECTD ergocalciferol (vitamin D2) 50,000 unit tablet 50,000 unit PO DAILY Glucagon Emergency Kit (human) 1 mg recon soln 1 mg subcut Q20M PRN Rx Instructions: until target blood sugar attained albuterol sulfate [Ventolin HFA] 90 mcg/actuation HFA aerosol inhaler 2 puff inhalation Q6H PRN ranolazine 500 mg tablet extended release 12 hr 500 mg PO BID metoprolol succinate 100 mg tablet extended release 24 hr 100 mg PO BID amitriptyline 50 mg tablet 100 mg PO QHS isosorbide mononitrate 60 mg tablet extended release 24 hr 60 mg PO DAILY nitroglycerin 400 mcg/spray spray,non-aerosol 1 spray translingual Q5M PRN Rx Instructions: do not exceed 3 doses per episode oxycodone-acetaminophen [Percocet] 10-325 mg tablet 1 tab PO BID PRN duloxetine 60 mg capsule,delayed release(DR/EC) 60 mg PO BID budesonide-formoterol [Symbicort] 80-4.5 mcg/actuation Hfa Aerosol Inhaler 2 inh INHALATION BID (DME) blood-glucose meter [[employer] Ultra2 Meter] Kit MISCELLANEOUS cephalexin [Keflex] 500 mg Capsule 500 mg PO QID Glucagon (HCl) Emergency Kit 1 mg Recon Soln 1 mg IM USEASDIRECTD Discharge Instructions Instructions: Chest Pain (ED), Abdominal Pain (ED) Additional Instructions: Please be seen by your primary care physician next week. Please return to the emergency department if you develop any worsening symptoms such as chest pain abdominal pain nausea vomiting shortness of breath or any other abnormal symptoms. Medical Decision Making 61-year-old male history of diabetes, obesity, coronary artery disease, presents with chest pain rating to back and abdomen over the past couple of days, no nausea no vomiting no respiratory symptoms, patient is hemodynamically stable no hypoxia no respiratory distress abdomen soft nontender nondistended, bilateral equal pulses radial, EKG normal sinus rhythm left axis no acute ischemic changes, although patient is hemodynamically stable and appears comfortable must consider aortic dissection versus aortic aneurysm versus ACS versus gastritis versus less likely PE versus less likely pancreatitis versus less likely pyelonephritis or kidney stone. Screening labs imaging fluids analgesia close reassessment disposition pending results 20: 44 patient resting comfortably no acute distress; labs and imaging unremarkable. No evidence of aortic pathology or ACS at this time. Given follow-up instructions and strict return precautions. HPI General Date/Time Provider Initiated Documentation: 12/22/21 16:50. HPI Narrative: 61-year-old male history of diabetes coronary artery disease, presents with anterior chest pain rating to abdomen and back over the past couple of days, denies shortness of breath nausea vomiting or diarrhea. Denies history of aortic pathology. Denies presyncope palpitations or other systemic signs of illness. Endorses his blood sugar has been running between 120 and 180 which is normal for him. Related Data Home Medications Medication Instructions Recorded Confirmed blood-glucose meter ([employer] 07/18/20 12/22/21 Ultra2 Meter kit) budesonide-formoterol HFA 80 2 inh inhalation BID 07/18/20 12/22/21 mcg-4.5 mcg/actuation aerosol inhaler (Symbicort) cephalexin 500 mg capsule (Keflex) 500 mg PO QID 07/18/20 12/22/21 glucagon HCl 1 mg solution for 1 mg IM USEASDIRECTD for severe 07/18/20 12/22/21 injection (Glucagon (HCl) hypoglycemia Emergency Kit) albuterol sulfate 90 mcg/actuation 2 puff inhalation Q6H PRN 06/07/21 12/22/21 aerosol inhaler (Ventolin HFA) amitriptyline 50 mg tablet 100 mg PO QHS 06/07/21 12/22/21 aspirin 81 mg tablet,delayed 81 mg PO DAILY 06/07/21 12/22/21 release clopidogrel 75 mg tablet 75 mg PO DAILY 06/07/21 12/22/21 duloxetine 60 mg capsule,delayed 60 mg PO BID 06/07/21 12/22/21 release ergocalciferol (vitamin D2) 50,000 50,000 unit PO DAILY 06/07/21 12/22/21 unit tablet famotidine 20 mg tablet 20 mg PO DAILY 06/07/21 12/22/21 glucagon 1 mg solution for 1 mg subcut Q20M PRN 06/07/21 12/22/21 injection (Glucagon Emergency Kit) insulin aspart U-100 100 unit/mL 1 sliding scale dose subcut 06/07/21 12/22/21 subcutaneous cartridge (Novolog USEASDIRECTD PenFill U-100 Insulin aspart) isosorbide mononitrate 60 mg 60 mg PO DAILY 06/07/21 12/22/21 tablet,extended release 24 hr metoprolol succinate 100 mg 100 mg PO BID 06/07/21 12/22/21 tablet,extended release 24 hr nitroglycerin 400 mcg/spray 1 spray translingual Q5M PRN 06/07/21 12/22/21 translingual oxycodone-acetaminophen 10 mg-325 1 tab PO BID PRN 06/07/21 12/22/21 mg tablet (Percocet) ranolazine 500 mg tablet,extended 500 mg PO BID 06/07/21 12/22/21 release,12 hr rosuvastatin 40 mg tablet 40 mg PO DAILY 06/07/21 12/22/21 bisacodyl 5 mg tablet,delayed 5 mg PO ONCE colonscopy bowel prep 11/30/21 12/22/21 release (Dulcolax (bisacodyl)) #4 tabs furosemide 20 mg tablet 20 mg PO DAILY 11/30/21 12/22/21 polyethylene glycol 3350 17 238 g PO ONCE colonoscopy prep 11/30/21 12/22/21 gram/dose oral powder #238 grams Previous Rx's Medication Instructions Recorded bisacodyl 5 mg tablet,delayed 5 mg PO ONCE colonscopy bowel prep 11/30/21 release (Dulcolax (bisacodyl)) #4 tabs polyethylene glycol 3350 17 238 g PO ONCE colonoscopy prep 11/30/21 gram/dose oral powder #238 grams Allergies Allergy/AdvReac Type Severity Reaction Status Date / Time Penicillins Allergy Unknown tolerated Unverified 12/22/21 17:02 Zosyn on admission 06/2016 insulin glargine, human AdvReac Intermediate Diarrhea Unverified 12/22/21 17:02 recombin. a [From Lantus] liraglutide [From Victoza] AdvReac Intermediate Diarrhea Unverified 12/22/21 17:02 lorazepam AdvReac Intermediate Loopy Unverified 12/22/21 17:02 metformin AdvReac Intermediate Diarrhea Unverified 12/22/21 17:02 methadone AdvReac Intermediate Loopy Unverified 12/22/21 17:02 pregabalin [From Lyrica] AdvReac Intermediate Diarrhea Verified 12/22/21 17:02 gabapentin AdvReac Mild loopy Unverified 12/22/21 17:02 morphine AdvReac Unknown Flushing Unverified 12/22/21 17:02 when given too fast General Stated Complaint: Abd Prob CARLOS EDUARDO: 3 Review of Systems Narrative: Review of Systems Constitutional: negative Eyes: negative ENT: negative Cardiovascular: Chest pain, back pain Respiratory: negative Gastrointestinal: Abdominal pain : negative Musculoskeletal: negative Skin: negative Neurologic: negative Psych: negative PFSH All Active Problems (Updated 12/22/21 @ 20:46 by Chemo Jerome MD) Chest pain (Acute) Abdominal pain (Acute) Medical History (Updated 12/22/21 @ 20:46 by Chemo Jerome MD) Below-knee amputation of left lower extremity CAD (coronary artery disease) multiple stents 2006 Cervicalgia Chest pain Chronic kidney disease, stage III (moderate) COVID-19 Dehydration Diabetes mellitus Diabetic foot ulcer 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 Exposure to COVID-19 virus GERD (gastroesophageal reflux disease) Headache, post-traumatic HTN (hypertension) Hx of pancreatitis Hypercholesterolemia Hypotension Inferior CO 2007 Migraine Neuropathy Obesities, morbid DARIO (obstructive sleep apnea) Peripheral neuropathy Phantom limb pain Poorly controlled diabetes mellitus Retinal disease, left Tobacco use Uses continuous positive airway pressure (CPAP) ventilation at home Surgical History (Updated 12/07/21 @ 12:39 by Milton Cali) History of heart artery stent History of lung biopsy Hx of cardiac catheterization S/P foot surgery Status post below knee amputation of left lower extremity Social History (Updated 11/30/21 @ 13:12 by ROBERT Rainey) Smoking/Tobacco Use Status: Current every day Tobacco Type: cigarettes Smoking risk assessment performed?: Yes Alcohol Intake: never Drug use: Never Substance use type: does not use Do you feel safe at home: Yes Do you feel safe in your relationship?: Yes Exam Narrative Exam Narrative: Physical Examination General: alert, awake, cooperative, resting comfortably, no acute distress HEENT: normocephalic, atraumatic; PERRL, EOM intact, conjunctiva normal; no nasal discharge; moist mucous membranes, oral and pharyngeal mucosa normal, tolerating secretions Neck: supple, trachea midline; full ROM Chest: normal to inspection Respiratory: normal respiratory effort, speaking in full sentences, clear to auscultation, no wheezing, rales or rhonchi Cardiac: regular rate, regular rhythm, S1S2 intact, no murmurs rubs or gallops; equal radial pulses bilaterally GI: abdomen soft, obese; non-tender, non-distended; no palpable mass or hepatosplenomegaly Skin: no lesions, rashes or trauma appreciated Neuro: AAOx3, normal speech, moving all extremities Psych: Appropriate mood and affect Course Vital Signs Vital signs: Vital Signs Temperature 36.6 C 12/22/21 16:55 Pulse 96 H 12/22/21 16:55 Respiratory Rate 16 12/22/21 16:55 Blood Pressure 141/80 H 12/22/21 16:55 Pulse Oximetry 97 12/22/21 16:55 Temperature 36.6 C 12/22/21 16:55 Pulse 96 H 12/22/21 16:55 Respiratory Rate 16 12/22/21 16:55 Respiratory Effort 12/22/21 17:03 Blood Pressure 141/80 H 12/22/21 16:55 Pulse Oximetry 97 12/22/21 16:55 Pain Level 8 12/22/21 17:03
[2021-12-22 17:37] LABS: Abs Immature Grans 0.26 10^3/uL (0.0-0.06); Absolute Lymphocyte Count 3.34 10^3/uL (1.2-3.4); Basophils % 0.6; Eosinophils % 3.2; HGB 16.4 g/dL (13.5-17.5); Immature Grans % 1.5; Lymphocytes % 19.2; MCH 29.2 pg (27.0-33.0); MCHC 32.2 % (32.0-36.0); MCV 91 fL (80-95); MPV 11.9 fL (8.0-11.0); Monocytes % 6.4; Neutrophils % 69.1; Platelet Count 238 10^3/uL (130-400); RBC 5.61 10^6/uL (4.36-5.78); RDW 14.2 % (11.8-14.1); RDW-SD 47.7 fL; WBC 17.37 10^3/uL (4.4-10.8)
[2021-12-22 17:43] LABS: Absolute Eosinophil Count 0.56 10^3/uL (0.0-0.7); Absolute Monocyte Count 1.11 10^3/uL (0.1-0.8)
[2021-12-22 17:46] LABS: Lipase 293 U/L (73-393)
[2021-12-22 17:52] LABS: ALT 26 U/L (16-63); AST 15 U/L (15-37); Albumin 3.1 g/dL (3.4-5.0); Alkaline Phosphatase 159 U/L (46-116); BUN 32 mg/dL (7-18); Bilirubin, Total 0.3 mg/dL (0.2-1.0); CREATININE 1.9 mg/dL (0.70-1.30); Calcium 9.4 mg/dL (8.5-10.1); Chloride 104 mmol/L (98-107); Estimated GFR 36.47 (mL/min/1.73m2); Glucose 205 mg/dL (74-106); Potassium 4.6 mmol/L (3.5-5.1); Sodium 137 mmol/L (136-145); Total Protein 7.3 g/dL (6.4-8.2); Troponin I < 50 ng/L (<or=60)
[2021-12-22 17:55] LABS: PTT Activated 24.8 sec (21.0-27.5); Prothrombin Time 9.8 sec (9.3-11.0)
--- NOTE | 2021-12-22 17:57 | DI.VRAD_ITS ---
PROCEDURE INFORMATION: Exam: XR Chest Exam date and time: 12/22/2021 5:33 PM Age: 61 years old Clinical indication: Other: Chest pain radiating to back and abdomen TECHNIQUE: Imaging protocol: XR of the chest. Views: 1 view. COMPARISON: CT CHEST WO 08/30/2021 10:54 AM FINDINGS: Lungs: Nodular opacity seen along the periphery of the right lung apex likely corresponds to a previously seen nodule on CT from 08/30/2021. Not well evaluated by radiograph. No consolidation. Pleural spaces: No pneumothorax. No sizable pleural effusion. Heart/Mediastinum: Cardiomediastinal silhouette within normal limits. Bones/joints: At least 1 old rib fracture. No acute displaced fracture. IMPRESSION: No acute cardiopulmonary findings. Dictated and Authenticated by: Bijan Chance MD. Ordering:JESSICA Mclain MD
[2021-12-22] MEDS: Acetaminophen 325 MG TAB 650 MG PO (18:26)
--- NOTE | 2021-12-22 18:36 | DI.VRAD_ITS ---
PROCEDURE INFORMATION: Exam: CTA Chest With Contrast Exam date and time: 12/22/2021 18:08 Age: 61 years old Clinical indication: Other: Non specified; Abdominal pain; Other: Radiating from chest; Patient HX: Chest pain going to back and abdomen TECHNIQUE: Imaging protocol: Computed tomographic angiography of the chest with contrast. 3D rendering (Not supervised by radiologist): MIP and/or 3D reconstructed images were created by the technologist. Other contrast: iv; COMPARISON: Vascular^CTA CAP (Adult) 06/04/2018 05:55 FINDINGS: Pulmonary arteries: No pulmonary emboli. Aorta: No aortic aneurysm. No aortic dissection. Lungs: There are benign, calcified pulmonary granulomas. There are additionally scattered noncalcified pulmonary nodules similar to previous imaging overall. Follow-up as per institutional protocol. Pleural spaces: No pneumothorax. No pleural effusion. Heart: Cardiac size appears upper limits of normal. Lymph nodes: No enlarged lymph nodes. Bones/joints: No acute fracture. Soft tissues: Gynecomastia. IMPRESSION: 1. No acute findings. 2. Incidental findings as described. PROCEDURE INFORMATION: Exam: CTA Abdomen and Pelvis With Contrast Exam date and time: 12/22/2021 18:08 Age: 61 years old Clinical indication: Other: Non specified; Abdominal pain; Other: Radiating from chest; Patient HX: Chest pain going to back and abdomen TECHNIQUE: Imaging protocol: Computed tomographic angiography of the abdomen and pelvis with contrast material. 3D rendering (Not supervised by radiologist): MIP and/or 3D reconstructed images were created by the technologist. Other contrast: iv; COMPARISON: Vascular^CTA CAP (Adult) 06/04/2018 05:55 FINDINGS: Aorta: No aortic aneurysm. No aortic dissection. Celiac trunk and mesenteric arteries: No occlusion or significant stenosis. Renal arteries: No occlusion or significant stenosis. Right iliac arteries: Right and left iliac arterial system demonstrates atherosclerosis without significant appearing stenosis. Left iliac arteries: No occlusion or significant stenosis. Liver: No mass. Gallbladder and bile ducts: No calcified stones. No ductal dilation. Pancreas: Question some minor edema proximally. No mass. No ductal dilation. Spleen: No splenomegaly. Adrenal glands: No mass. Kidneys and ureters: No solid mass. No hydronephrosis. Stomach and bowel: No obstruction. No mucosal thickening. Appendix: No evidence of appendicitis. Intraperitoneal space: No free air. No significant fluid collection. Lymph nodes: Gastrohepatic lymph nodes are mildly prominent. Urinary bladder: No mass. Reproductive: Unremarkable as visualized. Bones/joints: No acute fracture. Soft tissues: No suspicious lesions. IMPRESSION: 1. No acute aortic pathology. 2. Question minor edema around the proximal pancreas; consider a mild acute pancreatitis in the right clinical setting, clinical correlation necessary. 3. Incidental findings as described. Dictated and Authenticated by: Clarita Durán MD. Ordering:JESSICA Mclain MD
[2021-12-22] MEDS: MORPHine 4 MG/ML SYR IVP (19:18)
[2021-12-22] MEDS: diphenhydrAMINE 50 MG/ML VIAL 25 MG IVP (19:18)
[2021-12-22 20:00] LABS: Troponin I < 50 ng/L (<or=60)
== END 2021-12-22 21:13 | disposition home or self-care (01) ==
PROVIDERS: Emergency Provider Emergency Medicine; PCP Family Medicine
DX: R07.9 Chest pain, unspecified (principal); R10.9 Unspecified abdominal pain; M54.9 Dorsalgia, unspecified
CPT/HCPCS: 36415; 74177; 80053; 83690; 93005; 96374; 96375; 99285; 71045; 84484; 85025; 85610; 85730; 93010; 99284; J1200; J2270

== ENCOUNTER → 2021-12-26 02:48 | Outpatient (CLI) | payer MEDICARE, MEDICAID, SELFPAY | PROVIDERS: PCP Family Medicine; Visit Provider Family Medicine ==

== ENCOUNTER 2022-01-18 11:19 | Outpatient (REF) | payer MEDICARE, MEDICAID, SELFPAY ==
[2022-01-20 10:59] LABS: COVID-19 RT-PCR UVMMC Result Positive (Negative)
== END 2022-01-18 11:20 | disposition home or self-care (01) ==
LOC: NCHCN 11:19
PROVIDERS: PCP Family Medicine; Visit Provider Family Medicine
DX: Z20.822 Contact with and (suspected) exposure to COVID-19 (principal)
CPT/HCPCS: U0003

== ENCOUNTER 2022-02-15 09:31 | Outpatient (CLI) | payer MEDICARE, MEDICAID, SELFPAY ==
[2022-02-15 10:19] LABS: Ferritin 154 ng/mL (26-388); TSH (W/Ref FT4) 0.21 uIU/mL (0.36-3.74)
[2022-02-15 10:35] LABS: FREE T4 1.02 ng/dL (0.76-1.46)
== END 2022-02-15 09:32 | disposition home or self-care (01) ==
LOC: LBO 09:31
PROVIDERS: PCP Family Medicine; Visit Provider Nurse Practitioner
DX: E11.9 Type 2 diabetes mellitus without complications (principal); G25.81 Restless legs syndrome; E66.9 Obesity, unspecified
CPT/HCPCS: 36415; 82728; 84439; 84443

== ENCOUNTER 2022-03-25 18:23 | Outpatient (REF) | payer MEDICARE, MEDICAID, SELFPAY ==
[2022-03-25 20:30] LABS: ALT 31 U/L (16-63); AST 23 U/L (15-37); Albumin 3.1 g/dL (3.4-5.0); Alkaline Phosphatase 129 U/L (46-116); Anion Gap 8.4 mmol/L (3-11); BUN 41 mg/dL (7-18); Bilirubin, Total 0.2 mg/dL (0.2-1.0); CO2 25.6 mmol/L (21.0-32.0); CREATININE 1.6 mg/dL (0.70-1.30); Calcium 9.2 mg/dL (8.5-10.1); Calculated LDL 80 mg/dL (<100); Chloride 104 mmol/L (98-107); Cholesterol 156 mg/dL (<200); Estimated GFR 49.02 (mL/min/1.73m2); Glucose 284 mg/dL (74-106); HDL Cholesterol 38 mg/dL (40-60); Magnesium 1.8 mg/dL (1.8-2.4); Potassium 5.6 mmol/L (3.5-5.1); Sodium 138 mmol/L (136-145); Total Protein 7.3 g/dL (6.4-8.2); Triglyceride 191 mg/dL (<150)
== END 2022-03-25 18:24 | disposition home or self-care (01) ==
LOC: NCHCN 18:23
PROVIDERS: PCP Family Medicine; Visit Provider Family Medicine
DX: E11.9 Type 2 diabetes mellitus without complications (principal); E78.5 Hyperlipidemia, unspecified; Z87.19 Personal history of other diseases of the digestive system
CPT/HCPCS: 80053; 80061; 83036; 83735

== ENCOUNTER 2022-07-05 14:48 | Outpatient (REF) | payer MEDICARE, MEDICAID, SELFPAY ==
[2022-07-05 16:23] LABS: PROTEIN 131.8 mg/dL; Prot/Crea Ur Ratio 1.82
== END 2022-07-05 14:49 | disposition home or self-care (01) ==
LOC: NCHCN 14:48
PROVIDERS: PCP Family Medicine; Visit Provider Nurse Practitioner Family
DX: E11.9 Type 2 diabetes mellitus without complications (principal)
CPT/HCPCS: 82565; 84156

== ENCOUNTER 2022-10-04 10:43 | Outpatient (REF) | payer MEDICARE, MEDICAID, SELFPAY ==
[2022-10-04 15:01] LABS: HCT 47.8 % (40.0-50.0); HGB 15.4 g/dL (13.5-17.5); MCH 29.3 pg (27.0-33.0); MCHC 32.2 % (32.0-36.0); MCV 91 fL (80-95); MPV 11.6 fL (8.0-11.0); Platelet Count 215 10^3/uL (130-400); RBC 5.25 10^6/uL (4.36-5.78); RDW 14.1 % (11.8-14.1); RDW-SD 47.5 fL
[2022-10-04 15:26] LABS: ALT 22 U/L (16-63); AST 20 U/L (15-37); Alkaline Phosphatase 138 U/L (46-116); Anion Gap 6.6 mmol/L (3-11); BUN 37 mg/dL (7-18); Bilirubin, Total 0.3 mg/dL (0.2-1.0); CO2 25.4 mmol/L (21.0-32.0); Calculated LDL 90 mg/dL (<100); Chloride 103 mmol/L (98-107); Cholesterol 160 mg/dL (<200); Glucose 178 mg/dL (74-106); HDL Cholesterol 43 mg/dL (40-60); Potassium 5.6 mmol/L (3.5-5.1); Sodium 135 mmol/L (136-145); Triglyceride 136 mg/dL (<150)
== END 2022-10-04 10:44 | disposition home or self-care (01) ==
LOC: NCHCN 10:43
PROVIDERS: PCP Family Medicine; Visit Provider Family Medicine
DX: E11.9 Type 2 diabetes mellitus without complications (principal); I25.10 Atherosclerotic heart disease of native coronary artery without angina pectoris
CPT/HCPCS: 80053; 80061; 85027

== ENCOUNTER 2023-01-10 09:41 | Outpatient (REF) | payer MEDICARE, MEDICAID, SELFPAY ==
[2023-01-10 17:41] LABS: ALT 21 U/L (16-63); AST 15 U/L (15-37); Albumin 3.2 g/dL (3.4-5.0); Alkaline Phosphatase 119 U/L (46-116); Anion Gap 10.8 mmol/L (3-11); BUN 33 mg/dL (7-18); Bilirubin, Total 0.4 mg/dL (0.2-1.0); CO2 22.2 mmol/L (21.0-32.0); CREATININE 1.8 mg/dL (0.70-1.30); Calcium 8.7 mg/dL (8.5-10.1); Chloride 101 mmol/L (98-107); Estimated GFR 42.56 (mL/min/1.73m2); Glucose 134 mg/dL (74-106); Potassium 5.4 mmol/L (3.5-5.1); Sodium 134 mmol/L (136-145); Total Protein 6.5 g/dL (6.4-8.2)
== END 2023-01-10 09:42 | disposition home or self-care (01) ==
LOC: NCHCN 09:41
PROVIDERS: PCP Family Medicine; Visit Provider Family Medicine
DX: I25.10 Atherosclerotic heart disease of native coronary artery without angina pectoris (principal); E11.9 Type 2 diabetes mellitus without complications
CPT/HCPCS: 80053

== ENCOUNTER 2023-04-11 13:57 | Outpatient (REF) | payer MEDICARE, MEDICAID, SELFPAY ==
[2023-04-11 15:27] LABS: HCT 50.6 % (40.0-50.0); HGB 16.4 g/dL (13.5-17.5); MCH 29.3 pg (27.0-33.0); MCHC 32.4 % (32.0-36.0); MCV 91 fL (80-95); MPV 12.1 fL (8.0-11.0); Platelet Count 214 10^3/uL (130-400); RBC 5.59 10^6/uL (4.36-5.78); RDW 14.2 % (11.8-14.1); RDW-SD 47.4 fL; WBC 12.77 10^3/uL (4.4-10.8)
[2023-04-11 16:06] LABS: ALT 26 U/L (16-63); AST 15 U/L (15-37); Albumin 3.2 g/dL (3.4-5.0); Alkaline Phosphatase 148 U/L (46-116); Anion Gap 11.4 mmol/L (3-11); BUN 42 mg/dL (7-18); Bilirubin, Total 0.5 mg/dL (0.2-1.0); CO2 22.6 mmol/L (21.0-32.0); CREATININE 1.9 mg/dL (0.70-1.30); Calcium 9.2 mg/dL (8.5-10.1); Chloride 100 mmol/L (98-107); Estimated GFR 39.64 (mL/min/1.73m2); Glucose 322 mg/dL (74-106); Potassium 4.9 mmol/L (3.5-5.1); Sodium 134 mmol/L (136-145); Total Protein 6.6 g/dL (6.4-8.2)
[2023-04-11 16:31] LABS: Hemoglobin A1C 8.7 % (<5.7)
[2023-04-11 23:01] LABS: PSA, Screening 0.3 ng/mL (<=4.5)
== END 2023-04-11 13:58 | disposition home or self-care (01) ==
LOC: NCHCN 13:57
PROVIDERS: PCP Family Medicine; Visit Provider Family Medicine
DX: E11.9 Type 2 diabetes mellitus without complications (principal); N18.30 Chronic kidney disease, stage 3 unspecified; Z12.5 Encounter for screening for malignant neoplasm of prostate; Z01.818 Encounter for other preprocedural examination; Z01.812 Encounter for preprocedural laboratory examination; D72.829 Elevated white blood cell count, unspecified
CPT/HCPCS: 80053; 84153; 85027; 83036

== ENCOUNTER 2023-09-04 15:35 | Outpatient (REF) | payer MEDICARE, MEDICAID, SELFPAY ==
--- OUTSIDE RECORDS SUMMARY | 2023-09-04 15:37 | XMS_ITS | Continuity of Care Document ---
Author Name Unknown Organization [facility] Address [address] [place] [address] Care Team Providers Care Rubber Compounder Mixer Name Role Phone Kalli Gamble Primary Care Physician Encounter [facility] Date(s): 06/05/23 - 06/05/23 [facility] [address] [place] [address] Encounter Diagnosis Obstructive sleep apnea syndrome(Discharge Diagnosis) - 06/05/23 Nocturnal hypoxemia(Discharge Diagnosis) - 06/05/23 Periodic limb movement disorder (PLMD)(Discharge Diagnosis) - 06/05/23 Discharge Disposition: Home or Self Care Attending Physician: Clare Robles NP Referring Physician: Clare Robles NP Allergies, Adverse Reactions, Alerts Substance Reaction Severity Status methadone Unknown Unknown Active morphine Unknown Unknown Active gabapentin Unknown Unknown Active insulin glargine Unknown Unknown Active penicillins Unknown Unknown Active LORazepam Unknown Unknown Active metFORMIN Unknown Unknown Active Victoza Unknown Unknown Active Assessment and Plan Future Appointments Immunizations Given and Recorded Vaccine Date Status Refusal Reason influenza virus vaccine, live 05/05/18 Recorded influenza virus vaccine, live 05/30/17 Recorded influenza virus vaccine, live 04/11/16 Recorded influenza virus vaccine, live 04/07/15 Recorded influenza virus vaccine, live 04/01/14 Recorded tetanus/diphth/pertuss (Tdap) adult/adol 07/30/12 Recorded Novel [id number], all formulation 06/12/09 Recorded pneumococcal 23-polyvalent vaccine 10/24/06 Record ed Hep B, unspecified formulation 09/22/03 Recorded Hep B, unspecified formulation 04/19/03 Recorded Hep B, unspecified formulation 03/18/03 Recorded Medications amitriptyline 50 mg oral tablet 100 mg = 2 tab, Oral, every day at bedtime Start Date: 01/09/22 Status: Ordered clopidogrel 75 mg oral tablet 0 Refill(s) Start Date: 06/03/23 Status: Ordered DEXCOM G6 SENSOR (3 PACK) DEXCOM G6 SENSOR (3 PACK), 0 Refill(s) Start Date: 06/03/23 Status: Ordered Dexcom G6 Sensor device Dexcom G6 Sensor device, APPLY 1 DEVICE DIRECTED. CHANGE SENSOR EVERY 10 DAYS, Supply, See instructions, # 1 EA Start Date: 01/09/22 Status: Ordered Dexcom G6 Transmitter device Dexcom G6 Transmitter device, APPLY 1 DEVICE DIRECTED CHANGE EVERY 3 MONTHS, Supply, See instructions, # 1 EA Start Date: 01/09/22 Status: Ordered docusate sodium 100 mg oral capsule 100 mg = 1 cap, Oral, BID, PRN as needed for constipation, # 20 cap, 0 Refill(s) Start Date: 01/09/22 Status: Ordered DULoxetine 60 mg oral delayed release capsule 60 mg = 1 cap, Oral, BID Start Date: 01/09/22 Status: Ordered famotidine 20 mg oral tablet 20 mg = 1 tab, Oral, Daily Start Date: 01/09/22 Status: Ordered Gvoke HypoPen Two Pack 1 mg/0.2 mL subcutaneous solution 0 Refill(s) Start Date: 06/03/23 Status: Ordered isosorbide mononitrate 60 mg oral tablet, extended release 60 mg = 1 tab, Oral, Daily Start Date: 01/09/22 Status: Ordered losartan 25 mg oral tablet TAKE 1/2 TABLET BY MOUTH EVERY DAY Start Date: 06/03/23 Status: Ordered Metoprolol Succinate ER 100 mg oral tablet, extended release 100 mg = 1 tab, Oral, BID Start Date: 01/09/22 Status: Ordered NovoLOG 100 units/mL injectable solution See Instructions, USE DIRECTED WITH OMNIPOD Start Date: 01/09/22 Status: Ordered ofloxacin 0.3% ophthalmic solution INSTILL 1 DROP IN LEFT EYE FOUR TIMES DAILY BEGINNING 3 DAYS BEFORE SURGERY AND CONTINUING AFTER SURGERY Start Date: 06/03/23 Status: Ordered OMNIPOD 5 G6 PODS MIS OMNIPOD 5 G6 PODS MIS, 0 Refill(s) Start Date: 06/03/23 Status: Ordered OMNIPOD 5 G6 REFILL PODS 5PK (GEN5) OMNIPOD 5 G6 REFILL PODS 5PK (GEN5), USE DIRECTED. CHANGE POD EVERY 24 TO 48 HOURS Start Date: 06/03/23 Status: Ordered OmniPod Insulin Management System See Instructions, PRN As needed, Omnipod Dash Pods (Gen 4) subcutaneous cartridge; USE DIRECTED AND CHANGE POD EVERY 24 HOURS Start Date: 01/09/22 Status: Ordered oxyCODONE-acetaminophen 10 mg-325 mg oral tablet 1 tab, Oral, BID, for cronic pain, 0 Refill(s) Start Date: 01/09/22 Status: Ordered pantoprazole 40 mg oral delayed release tablet 40 mg = 1 tab, Oral, BID Start Date: 01/09/22 Status: Ordered ranolazine 500 mg oral tablet, extended release 500 mg = 1 tab, Oral, BID Start Date: 01/09/22 Status: Ordered rosuvastatin 40 mg oral tablet 40 mg = 1 tab, Oral, Daily Start Date: 01/09/22 Status: Ordered Send to [facility] Send to [facility], Send to [facility], Supply, See instructions, # 1 EA, 0 Refill(s) Start Date: 02/15/22 Status: Ordered torsemide 10 mg oral tablet 10 mg = 1 tab, Oral, Daily Start Date: 01/09/22 Status: Ordered Vitamin D2 1.25 mg (50,000 intl units) oral capsule 50,000 IntlUnit = 1 cap, Oral, As Directed, 2 times a week Start Date: 01/09/22 Status: Ordered Problem List Condition Confirmation Course Effective Dates Status Health Status Informant Adjustment disorder Confirmed 06/21/20 Active Amputated below knee Confirmed 06/21/20 Active Broken skin Confirmed 04/26/19 Active Chest pain Confirmed 06/21/20 Active Chronic ischemic heart disease Confirmed Active Chronic kidney disease Confirmed 04/26/19 Active 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 Congestive heart failure Confirmed 04/26/19 Active Coronary arteriosclerosis Confirmed 06/21/20 Active Dehydration Confirmed 06/21/20 Active Diabetes mellitus Confirmed 04/26/19 Active Disorder of hyperalimentation Confirmed Active Dizziness Confirmed 06/21/20 Active Dyspnea Confirmed 06/21/20 Active Essential hypertension Confirmed Active Foot callus Confirmed 06/21/20 Active Gastroesophageal reflux disease Confirmed 04/26/19 Active Heart murmur Confirmed 04/26/19 Active Hyperlipidemia Confirmed 04/26/19 Active Hypertensive disorder Confirmed 04/26/19 Active Nocturnal hypoxemia Confirmed Active Lack of energy Confirmed Active Low blood pressure Confirmed 06/21/20 Active Morbid obesity Confirmed 04/26/19 Active Myocardial infarction Confirmed 06/21/20 Active Neuropathy Confirmed 06/21/20 Active Nicotine dependence Confirmed 06/21/20 Active Nodule of lung Confirmed 04/26/19 Active Obstructive sleep apnea syndrome Confirmed Active Obstructive sleep apnea Confirmed Active Periodic limb movement disorder (PLMD) Confirmed Active Phantom limb syndrome with pain Confirmed 06/21/20 Active Proteinuria Confirmed 06/21/20 Active Skin breakdown control management Confirmed 06/21/20 Active Smoker Confirmed 04/26/19 Active Tobacco user Confirmed 04/26/19 Active Type 2 diabetes mellitus without complication Confirmed 06/21/20 Active Urinary tract infectious disease Confirmed 06/21/20 Active Vital Signs Most recent to oldest [Reference Range]: 1 Peripheral Pulse Rate [60-100 bpm] 88 bp m (06/05/23 11:02 AM) Blood Pressure [90-140/60-90 mmHg] 138/7 6mmHg (06/05/23 11:02 AM) Mean Arterial Pressure, Cuff [70-110 mmH g] 97 mmHg (06/05/23 11:02 AM) Weight 127.01 kg (06/05/23 11:02 AM) Weight Measured (lbs) 280.009 lb (06/05/23 11:02 AM) Weight Dosing 127.010 kg (06/05/23 11:02 AM) Height 180.34 cm (06/05/23 11:02 AM) Height/Length Measured (inches) 71 inch (06/05/23 11:02 AM) Body Mass Index 39.05 kg/m2 (06/05/23 11:02 AM) Social History Social History Type Response Tobacco Current everyday tob acco user Tobacco Use:. 1 pk every 2-3 days per day. Sex Male Progress note * Tatum Richards R: PERFORM Event Display: Progress Note - Physician Authored Date: [id number] Physician Outpatient Note * Clare Robles CARETAKER RESORT: PERFORM Event Display: Office Clinic Note Physician Authored Date: [id number] LYNETTE ORTIZ :1960 Age:63 years Sex:Male Visit Date:06/05/2023 Primary Care Physician: Kalli Gamble MD Chief Complaint follow up titration study results History of Present Illness 63 years??male??here for sleep study results, compliance ?? TODAY: His sleep study was about a typical night sleep for him that night. ?? He is wondering what DME he gets to go through. He likes [employer] [employer]. ?? He is waking up at night in a panic with CPAP, gasping for air. He does notice that despite that, he is more awake during the day with CPAP. He would like the humidity decreased Review of Systems A 10-point REVIEW OF SYSTEM was obtained and reviewed, includes CONSTITUTIONAL, EYES, NOSE, THROAT,RESPIRATORY, HEART, GASTROINTESTINAL, UROLOGIC, MUSCULOSKELETAL, PSYCHIATRY, SKIN systems. Pertinent symptoms are discussed in history, otherwise negative. Physical Exam Vitals & Measurements HR:??88??(Peripheral)?? BP:??138/76?? SpO2:??92%?? HT:??180.34??cm?? WT:??127.01??kg?? BMI:??39.05?? General:??well appearing, appearing stated age, no acute distress,??obesebuild HEENT: atraumatic skull, anicteric RESPIRATORY: quiet respiration, able to speak in full sentences without dyspnea, no accessory muscle use SKIN: no facial skin rash, no facial skin lesions PSYCHIATRIC: well groomed, fluent speech, good insight, linear thought process, good eye contact,balanced??affect NEUROLOGIC: alert, oriented, symmetric facial expression Clinic Assessment/Plan 1.??Obstructive sleep apnea syndrome??G47.33 Edward??Ed?? Von is a??pleasant 63 year old male here for sleep study??results.??Pt underwentCPAP/BIPAP titration for Severe Obstructive Sleep Apnea associated with significant nocturnal hypoxemia on 05/01/2023. Optimal pressure was not found, up to tested pressure of CPAP 16 cmH2O and BIPAP 1 [id number]. Oxygenation was borderline on optimal pressures.?? CPAP was tried and failed. Interface problems did not contribute to CPAPs inability to control the patient's sleep apnea.?? RECOMMENDATIONS: The patient should be changed to bi-level therapy with mask of choice, heated humidification and ramp. auto BIPAP can be used with Imax 25 cmH2O, Sabas 16 cmH2O and PS 6 cmH2O. Interval follow up with(download/nocturnal oximetry) to confirm adequacy of this setting is recommended. ?? We reviewed sleep study results in detail including apnea hypopnea index, positional data and oxygen data. We reviewed discussion of Obstructive Sleep Apnea, including pathophysiology, associated lobsterman cardiovascular, neurocognitive and overall health effects, and importance of treatment. Order placed to start auto BiPAP at aforementioned pressures, in the mean time adjusted his pressures to auto CPAP 10 to 18cm H20 for his comfort, as he is waking up gasping for air with his current settings. ?? Download data reviewed and discussed with the patient. He has low compliance due to aforementioned pressure discomfort on auto CPAP 7 to 15cm H20, ideally this will improve with the increase and oncehe has started on auto BiPAP once he has his new machine. Also discussed replacing PAP supplies regularly. Machine settings reviewed in office as well, Smart Start enabled, humidity decreased at his requestd/t rainout nightly in his tube. ?? Plan for follow up in 2 months. ?? 2.??Nocturnal hypoxemia??G47.34 Start auto BiPAP IMAX 25 SABAS 16 PS 6cm H20, will order overnight oximetry on BiPAP once he has started using new machine. Discussed possibility of requiring supplemental oxygen bled into his BiPAP to ensure adequate oxygenation if needed. ?? 3.??Periodic limb movement disorder (PLMD)??G47.61 Sleep study also showed Severely elevated Periodic Limb Movements Index. PLM index: 52.0/hr, PLM arousal index: 1.6/hr. Plan to re-eval PLMD leg movements after pt has started his BiPAP machine. On titration study, PLMD not noted during BiPAP titration portion. ?? I provided greater than??40??minutes in the care of this patient, more than half the time was spentin [id number] counseling. ?with comorbidities of CHF, CAD, hypertension, diabetes??melitis, history RI x3,??CKD stage III, morbid obesity, GERD, smoker, pulmonary nodule, chronic??opioid use??for pain management (oxycodone 10-325 tab PO, ??BID) ? Clinical Data Reviewed: [place] Sleepiness Scale: ?? Machine Download Data:??Resmed AirSense 10 Auto CPAP?? PAP Settings: ??Auto CPAP?7 to 15??CmH2O Date Range: ?05/03/22 - 08/01/22 Days with Usage >=4 hours:??27%? Avg Usage per Day Used: ??3hr 22min Mean/Median Pressure: ?10.5 90th-tile/95th-tile Pressure:13.8? Leak:?7.4/17.2 Avg Treatment ??AHI:?9.4/hr Central Apnea Index: 1.6/hr ?? Sleep Clinical Timeline:? 04/25/1997. ??PSG.?? AHI 26/h 06/29/1997. ??PSG titration??and ML ST ?? 12/08/2021. ??PSG diagnostic.?? Weight 300 LBS. ??BMI 41.84. ??ESS . 1.?? Severe obstructive sleep apnea associated with significant nocturnal hypoxemia 2.?? Overall AHI 33.9/h, overall RDI 35.5/h,??REM AHI 19.3/h, supine AHI 87/h,??right lateral AHI 22/h, left lateral AHI 66/h,??prone AHI??n/a 3. ??Mean SPO2 90% and leonor SPO2 79% on room air, 105.2 minutes spent with SPO2 less than or equalto 88% on room air 4. ??Very severe periodic limb movement disorder with significant arousals.?? PLM index 59/h. ??PLMarousal index 7.5/h.? 02/15/2022: Start auto CPAP, Ferritin and TSH level ordered for PLMD. titration psg ordered for severe nocturnal hypoxemia ?? 12/27/2022: Adjusted pressures in office to auto CPAP 7 to 15cm H20. humidity set to 6, pt prefers high humidity d/t dry mouth. Ordered titration PSG d/t nocturnal hypxoemia. ?? 05/01/2023: CPAP/BiPAP Titration PSG. Wt.: 288 lbs. ??BMI = 40.16 kg/m2.?? IMPRESSION: 1.??CPAP/BIPAP titration for Severe Obstructive Sleep Apnea associated with significant nocturnal hypoxemia. 2.??Optimal pressure was not found, up to tested pressure of CPAP 16 cmH2O and BIPAP 19/[id number]. Oxygenation was borderline on optimal pressures.?? 3.??CPAP was tried and failed. Interface problems did not contribute to CPAPs inability to control the patient's sleep apnea. 4.??Severely elevated Periodic Limb Movements Index. PLM index: 52.0/hr, PLM arousal index: 1.6/hr. 5.??Patient used a F&P Simplus medium mask. Lower lip occasional dropped below the bottom of the mask. 6.??Patient thought he slept very well and felt well rested the next morning.? RECOMMENDATIONS: 1.??The patient should be changed to bi-level therapy with mask of choice, heated humidification and ramp. auto BIPAP can be used with Imax 25 cmH2O, Sabas 16 cmH2O and PS 6 cmH2O. Interval follow up with (download/nocturnal oximetry) to confirm adequacy of this setting is recommended. 2.??Assess need for supplemental oxygen based on future close monitoring on BIPAP. ? 06/05/2023: Order placed to start auto BiPAP IMAX 25 SABAS 16cm PS 6cm H20 with F&P Simplus Medium FFM, in the mean time pressures on his CPAP machine were adjusted in office for comfort to auto CPAP 10 to 18cm H20 given he is waking up gasping for air on lower pressures. Plan to order overnightoximetry test once he has started on BIPAP to check for adequate oxygenation, re-eval PLMD at next v isit. ?? Current Mask: F&P Simplus Medium Masks Tried: nasal mask with chinstrap DME: [facility] ?? Today's Assessment and Plan: See above ?? Follow up: 2 months or sooner if needed ([facility]) ?? Remote Scribed by Bob Almonte Problem List/Past Medical History Ongoing Adjustment disorder Amputated below knee Broken skin Chest pain Chronic ischemic heart disease Chronic kidney disease Congenital anomaly of cornea Congestive heart failure Coronary arteriosclerosis Dehydration Diabetes mellitus Disorder of hyperalimentation Dizziness Dyspnea Essential hypertension Foot callus Gastroesophageal reflux disease Heart murmur Hyperlipidemia Hypertensive disorder Lack of energy Low blood pressure Morbid obesity Myocardial infarction Neuropathy Nicotine dependence Nocturnal hypoxemia Nodule of lung Obstructive sleep apnea Obstructive sleep apnea syndrome Periodic limb movement disorder (PLMD) Phantom limb syndrome with pain Proteinuria Skin breakdown control management Smoker Tobacco user Type 2 diabetes mellitus without complication Urinary tract infectious disease Historical No qualifying data Medications What How Much When Why Instructions Unchanged amitriptyline (amitriptyline 50 mg oral tablet) 2 tab Oral (given by mouth) Every night at bedtime Contact prescribing physician if questions or concerns ?? Unchanged clopidogrel (clopidogrel 75 mg oral tablet) Contact prescribing physician if questions or concerns ?? Unchanged DME RESP PAP / DARIO Supplies (Send to [facility]) See instructions DARIO (obstructive sleep apnea) Periodic limb movement disorder Send to [facility] Contact prescribing physician if questions or concerns ?? Unchanged docusate (docusate sodium 100 mg oral capsule) 1 Capsules Oral (given by mouth) 2 times a day as needed for as needed for constipation Contact prescribing physician if questions or concerns ?? Unchanged DULoxetine (DULoxetine 60 mg oral delayed release capsule) 1 Capsules Oral (given by mouth) 2 times a day Contact prescribing physician if questions or concerns ?? Unchanged Durable Medical Equipment for Prescription (Dexcom G6 Sensor device) See instructions APPLY 1 DEVICE DIRECTED. CHANGE SENSOR EVERY 10 DAYS Contact prescribing physician if questions or concerns ?? Unchanged Durable Medical Equipment for Prescription (Dexcom G6 Transmitter device) See instructions APPLY 1 DEVICE DIRECTED CHANGE EVERY 3 MONTHS Contact prescribing physician if questions or concerns ?? Unchanged ergocalciferol (Vitamin D2 1.25 mg (50,000 intl units) oral capsule) 1 Capsules Oral (given by mouth) As Directed 2 times a week Contact prescribing physician if questions or concerns ?? Unchanged famotidine (famotidine 20 mg oral tablet) 1 tab Oral (given by mouth) Every day Contact prescribing physician if questions or concerns ?? Unchanged glucagon (Gvoke HypoPen Two Pack 1 mg/ 0.2 mL subcutaneous solution) Contact prescribing physician if questions or concerns ?? Unchanged insulin aspart (NovoLOG 100 units/ mL injectable solution) See instructions USE DIRECTED WITH OMNIPOD Contact prescribing physician if questions or concerns ?? Unchanged isosorbide mononitrate (isosorbide mononitrate 60 mg oral tablet, extended release) 1 tab Oral (given by mouth) Every day Contact prescribing physician if questions or concerns ?? Unchanged losartan (losartan 25 mg oral tablet) TAKE 1/ 2 TABLET BY MOUTH EVERY DAY Contact prescribing physician if questions or concerns ?? Unchanged metoprolol (Metoprolol Succinate ER 100 mg oral tablet, extended release) 1 tab Oral (given by mouth) 2 times a day Contact prescribing physician if questions or concerns ?? Unchanged ofloxacin ophthalmic (ofloxacin 0.3% ophthalmic solution) INSTILL 1 DROP IN LEFT EYE FOUR TIMES DAILY BEGINNING 3 DAYS BEFORE SURGERY AND CONTINUING AFTER SURGERY Contact prescribing physician if questions or concerns ?? Unchanged Other Prescription (DEXCOM G6 SENSOR (3 PACK)) Contact prescribing physician if questions or concerns ?? Unchanged Other Prescription (OMNIPOD 5 G6 PODS MIS) Contact prescribing physician if questions or concerns ?? Unchanged Other Prescription (OMNIPOD 5 G6 REFILL PODS 5PK (GEN5)) USE DIRECTED. CHANGE POD EVERY 24 TO 48 HOURS Contact prescribing physician if questions or concerns ?? Unchanged oxyCODONE-acetaminophen (oxyCODONE-acetaminophen 10 mg-325 mg oral tablet) 1 tab Oral (given by mouth) 2 times a day for cronic pain Contact prescribing physician if questions or concerns ?? Unchanged pantoprazole (pantoprazole 40 mg oral delayed release tablet) 1 tab Oral (given by mouth) 2 times a day Contact prescribing physician if questions or concerns ?? Unchanged ranolazine (ranolazine 500 mg oral tablet, extended release) 1 tab Oral (given by mouth) 2 times a day Contact prescribing physician if questions or concerns ?? Unchanged rosuvastatin (rosuvastatin 40 mg oral tablet) 1 tab Oral (given by mouth) Every day Contact prescribing physician if questions or concerns ?? Unchanged subcutaneous insulin pump (OmniPod Insulin Management System) See instructions Omnipod Dash Pods (Gen 4) subcutaneous cartridge; USE DIRECTED AND CHANGE POD EVERY 24 HOURS, Asneeded for As needed Contact prescribing physician if questions or concerns ?? Unchanged torsemide (torsemide 10 mg oral tablet) 1 tab Oral (given by mouth) Every day Contact prescribing physician if questions or concerns ?? Allergies LORazepam??(Unknown) Victoza??(Unknown) gabapentin??(Unknown) insulin glargine??(Unknown) metFORMIN??(Unknown) methadone??(Unknown) morphine??(Unknown) penicillins??(Unknown) Social History Alcohol Never Electronic Cigarette/Vaping Electronic Cigarette Use: Never. Home/Environment Lives with Spouse. Nutrition/Health Caffeine intake amount: 2 cups of coffee a day. Substance Use Never Tobacco Current everyday tobacco user Tobacco Use:. 1 pk every 2-3 days per day. Immunizations Vaccine Date Status influenza virus vaccine, live 05/05/2018 Recorded influenza virus vaccine, live 05/30/2017 Recorded influenza virus vaccine, live 04/11/2016 Recorded influenza virus vaccine, live 04/07/2015 Recorded influenza virus vaccine, live 04/01/2014 Recorded tetanus/diphth/pertuss (Tdap) adult/adol 07/30/2012 Recorded Novel [id number], all formulation 06/12/2009 Recorded pneumococcal 23-polyvalent vaccine 10/24/2006 Recorded Hep B, unspecified formulation 09/22/2003 Recorded Hep B, unspecified formulation 04/19/2003 Recorded Hep B, unspecified formulation 03/18/2003 Recorded Electronically Signed on 06/05/23 11:56 AM Clare Robles CARETAKER RESORT Electronically Signed on 06/05/23 11:41 AM Bob Almonte Patient Care team information Care Team Personnel Name: Kalli Gamble MD Position: No Access Member Role: Primary Care Physician Address: Address: [address] [facility] [place] [address]- Care Team Related Persons Name: BILLIE ORTIZ Name: SYED SHETTY
[2023-09-04 18:58] LABS: Abs Immature Grans 0.12 10^3/uL (0.0-0.06); Absolute Basophil Count 0.11 10^3/uL (0.0-0.2); Absolute Eosinophil Count 0.36 10^3/uL (0.0-0.7); Absolute Lymphocyte Count 2.12 10^3/uL (1.2-3.4); Basophils % 0.7; Eosinophils % 2.2; HCT 47.3 % (40.0-50.0); HGB 15.5 g/dL (13.5-17.5); Immature Grans % 0.7; Lymphocytes % 13.1; MCH 29.4 pg (27.0-33.0); MCHC 32.8 % (32.0-36.0); MCV 90 fL (80-95); MPV 11.9 fL (8.0-11.0); Monocytes % 6.2; Neutrophils % 77.1; Platelet Count 211 10^3/uL (130-400); RBC 5.27 10^6/uL (4.36-5.78); RDW 13.6 % (11.8-14.1); RDW-SD 44.9 fL; WBC 16.16 10^3/uL (4.4-10.8)
[2023-09-04 18:59] LABS: Absolute Neutrophil Count 12.46 10^3/uL (1.2-6.7)
[2023-09-04 19:15] LABS: ALT 25 U/L (16-63); AST 19 U/L (15-37); Albumin 3.1 g/dL (3.4-5.0); Alkaline Phosphatase 148 U/L (46-116); Anion Gap 11.8 mmol/L (3-11); BUN 37 mg/dL (7-18); Bilirubin, Total 0.4 mg/dL (0.2-1.0); CO2 24.2 mmol/L (21.0-32.0); Chloride 104 mmol/L (98-107); Creatine Kinase 73 U/L (39-308); Estimated GFR 37.27 (mL/min/1.73m2); Glucose 230 mg/dL (74-106); Potassium 5.2 mmol/L (3.5-5.1); Sodium 140 mmol/L (136-145); Total Protein 7.1 g/dL (6.4-8.2)
[2023-09-04 19:21] LABS: Hemoglobin A1C 8.5 % (<5.7)
== END 2023-09-04 15:36 | disposition home or self-care (01) ==
LOC: NCHCN 15:35
PROVIDERS: PCP Family Medicine; Visit Provider Family Medicine
DX: E11.9 Type 2 diabetes mellitus without complications (principal)
CPT/HCPCS: 80053; 82550; 83036; 85025

== ENCOUNTER → 2023-09-25 02:44 | Outpatient (CLI) | payer MEDICARE, MEDICAID, SELFPAY ==
--- NOTE | 2023-09-25 08:54 | DI.CTLCSR_ITS ---
Exam(s) CT CHEST LUNG CANCER SCREEN EXAM: CT CHEST LUNG CANCER SCREEN CLINICAL HISTORY: SCREENING FOR LUNG CA,CURRENT SMOKER, F17.210 TECHNIQUE: Imaging Protocol: Axial computed tomography images with coronal and sagittal reformatted images were created and reviewed. Low dose screening protocol. COMPARISON: CT CT CHEST WO from 08/30/2021 CR,XR XR PORTABLE CHEST AP from 12/22/2021 FINDINGS: Tracheobronchial tree: No bronchiectasis or mucus plugging.. Mediastinum and Kiesha: Calcified bilateral hilar lymph nodes. Pulmonary parenchyma: No consolidation or dominant measurable mass. Multifocal areas of scarring. M ild emphysematous changes. Lung Nodules: Multiple calcified and noncalcified pulmonary nodules are again noted. Pleura: No effusion. No pneumothorax. Heart: The heart is mildly dilated. Coronary artery stents noted. Aorta: Thoracic aorta non-dilated. Upper abdomen: Unremarkable. Bones: Unremarkable for age. Soft Tissues: Mild bilateral gynecomastia. IMPRESSION: Stable pulmonary nodules. Lung RADS Cat 2 - Benign Appearance / Behavior: Nodules with a very low likelihood of becoming a clin ically active cancer due to size or lack of growth Lung-RADS 1.0 CATEGORIES: Category 0 - Prior chest CT exam(s) being located for comparison. Category 1 - Annual screening in 12 months. No nodules or definitely benign nodules. Category 2 - Annual screening in 12 months. Benign appearance. Nodules with low likelihood of becomin g active cancer. Category 3 - 6-month follow-up. Probably benign. Short-term follow-up suggested. Nodules with low lik elihood of becoming active cancer. Category 4A - 3-month follow-up and CT/PET if >8 mm in size. Suspicious finding. Findings which requi re additional testing. Category 4B - Findings which require additional testing and tissue sampling. Category 4X - Category 3 or 4 nodules with additional features or imaging findings that increases the suspicion of malignancy. Modifier S- Potentially clinically significant findings (non lung cancer) RADIATION DOSE DELIVERED: 88.04mGy.cm Total DLP DATA REPOSITORY: All CT scans at this facility are submitted to the National Radiology Data Registry (NRDR) Dose Index Registry (DIR) with the [employer] (ACR). RADIATION OPTIMIZATION: All CT scans at this facility use at least one of these dose optimization te chniques: automated exposure control; mA and/or kV adjustment per patient size (includes targeted exa ms where dose is matched to clinical indication); or iterative reconstruction.
== END ==
PROVIDERS: PCP Family Medicine; Visit Provider Family Medicine
DX: F17.210 Nicotine dependence, cigarettes, uncomplicated (principal); Z12.2 Encounter for screening for malignant neoplasm of respiratory organs
CPT/HCPCS: 71271

== ENCOUNTER 2023-12-19 13:46 | Outpatient (REF) | payer MEDICARE, MEDICAID, SELFPAY ==
[2023-12-19 15:50] LABS: Abs Immature Grans 0.12 10^3/uL (0.0-0.06); Absolute Lymphocyte Count 2.51 10^3/uL (1.2-3.4); Absolute Monocyte Count 0.85 10^3/uL (0.1-0.8); Basophils % 0.6 %; Eosinophils % 3.4 %; HCT 46.8 % (40.0-50.0); HGB 14.8 g/dL (13.5-17.5); Immature Grans % 0.9 %; MCH 29.2 pg (27.0-33.0); MCHC 31.6 % (32.0-36.0); MCV 93 fL (80-95); MPV 12.1 fL (8.0-11.0); Monocytes % 6.1 %; Platelet Count 188 10^3/uL (130-400); RBC 5.06 10^6/uL (4.36-5.78); RDW 14.8 % (11.8-14.1); WBC 13.93 10^3/uL (4.4-10.8)
[2023-12-19 15:57] LABS: Absolute Basophil Count 0.08 10^3/uL (0.0-0.2); Absolute Eosinophil Count 0.47 10^3/uL (0.0-0.7); Absolute Neutrophil Count 9.89 10^3/uL (1.2-6.7)
[2023-12-19 16:32] LABS: ALT 20 U/L (16-63); AST 17 U/L (15-37); Albumin 3.1 g/dL (3.4-5.0); Alkaline Phosphatase 114 U/L (46-116); BUN 52 mg/dL (7-18); Bilirubin, Total 0.5 mg/dL (0.2-1.0); CREATININE 2.3 mg/dL (0.70-1.30); Calcium 8.3 mg/dL (8.5-10.1); Chloride 102 mmol/L (98-107); Estimated GFR 31.52 (mL/min/1.73m2); Glucose 197 mg/dL (74-106); Hemoglobin A1C 8.8 % (<5.7); Potassium 5.5 mmol/L (3.5-5.1); Sodium 132 mmol/L (136-145); Total Protein 6.9 g/dL (6.4-8.2)
== END 2023-12-19 13:47 | disposition home or self-care (01) ==
LOC: NCHCN 13:46
PROVIDERS: PCP Family Medicine; Visit Provider Nurse Practitioner Family
DX: E11.9 Type 2 diabetes mellitus without complications (principal); N18.30 Chronic kidney disease, stage 3 unspecified; Z01.818 Encounter for other preprocedural examination
CPT/HCPCS: 80053; 83036; 85025

== ENCOUNTER 2024-02-13 10:11 | Outpatient (REF) | payer MEDICARE, MEDICAID, SELFPAY ==
[2024-02-13 16:12] LABS: Anion Gap 9.4 mmol/L (3-11); BUN 35 mg/dL (7-18); CO2 25.6 mmol/L (21.0-32.0); CREATININE 1.7 mg/dL (0.70-1.30); Calcium 9.4 mg/dL (8.5-10.1); Chloride 104 mmol/L (98-107); Estimated GFR 45.02 (mL/min/1.73m2); Glucose 287 mg/dL (74-106); Potassium 5.2 mmol/L (3.5-5.1); Sodium 139 mmol/L (136-145)
[2024-02-13 16:20] LABS: Hemoglobin A1C 8.6 % (<5.7)
== END 2024-02-13 10:12 | disposition home or self-care (01) ==
LOC: NCHCN 10:11
PROVIDERS: PCP Family Medicine; Visit Provider Family Medicine
DX: E11.9 Type 2 diabetes mellitus without complications (principal)
CPT/HCPCS: 80048; 83036

== ENCOUNTER 2024-04-08 16:30 | Outpatient (REF) | payer MEDICARE, SELFPAY | END 2024-04-08 16:31 | disposition home or self-care (01) | LOC: NCHCN 16:30 | PROVIDERS: PCP Family Medicine; Visit Provider Nurse Practitioner Family | DX: S81.802A Unspecified open wound, left lower leg, initial encounter (principal); X58.XXXA Exposure to other specified factors, initial encounter | CPT/HCPCS: 87070; 87205 ==

== ENCOUNTER 2024-05-27 15:38 | Outpatient (REF) | payer MEDICARE, SELFPAY ==
[2024-05-27 19:11] LABS: ESR 39 mm/hr (0-20)
[2024-05-27 19:34] LABS: Anion Gap 10.2 mmol/L (3-11); BUN 45 mg/dL (7-18); CO2 21.8 mmol/L (21.0-32.0); CREATININE 2.3 mg/dL (0.70-1.30); Calcium 8.8 mg/dL (8.5-10.1); Chloride 107 mmol/L (98-107); Estimated GFR 31.32 (mL/min/1.73m2); Glucose 182 mg/dL (74-106); Potassium 5.3 mmol/L (3.5-5.1); Sodium 139 mmol/L (136-145)
[2024-05-28 17:58] LABS: CRP, High Sensitivity 7.61 mg/L (See Note)
== END 2024-05-27 15:39 | disposition home or self-care (01) ==
LOC: NCHCN 15:38
PROVIDERS: PCP Family Medicine; Visit Provider Family Medicine
DX: N18.30 Chronic kidney disease, stage 3 unspecified (principal); Z86.19 Personal history of other infectious and parasitic diseases
CPT/HCPCS: 80048; 85652; 86141

== ENCOUNTER 2024-06-01 01:05 | Outpatient (CLI) | payer MEDICARE, SELFPAY ==
--- NOTE | 2024-06-01 | DI.RAD_ITS ---
Exam(s) XR TIB/FIB LT EXAM: XR TIB/FIB LT CLINICAL HISTORY: LT LIMB STUMP PAIN,M79.605. TECHNIQUE: 2D digital imaging was performed of the left tibia and fibula. Two images were obtained. AP and lateral views were obtained. COMPARISON: No exams were available for comparison FINDINGS: BONES: The patient has a below the knee amputation. No acute fracture is present. No bony destructiv e lesion is seen. The visualized knee is well maintained. SOFT TISSUE: No soft tissue gas is present. IMPRESSION: No definite radiographic evidence to suggest osteomyelitis at this time. If symptoms persist, an MRI should be considered for further evaluation. DATA REPOSITORY: RADIATION DOSE DELIVERED:
== END 2024-06-01 01:25 ==
LOC: DI 01:06
PROVIDERS: PCP Family Medicine; Visit Provider Family Medicine
DX: S82.451A Displaced comminuted fracture of shaft of right fibula, initial encounter for closed fracture; X58.XXXA Exposure to other specified factors, initial encounter
CPT/HCPCS: 73590

== ENCOUNTER 2024-06-01 13:57 | Outpatient (CLI) | payer MEDICARE, SELFPAY ==
--- NOTE | 2024-06-01 | DI.RAD_ITS ---
Exam(s) XR ANKLE RT COMPLETE EXAM: XR ANKLE RT COMPLETE CLINICAL HISTORY: PAIN RT ANKLE AND JOINTS M25.571 X 2 DAYS NEUROPATHY AND SWELLING. TECHNIQUE: 2D digital imaging was performed of the right ankle. Three images were obtained. AP, la teral and oblique views were obtained. COMPARISON: No exams were available for comparison FINDINGS: BONES: There is an acute oblique fracture through the distal right fibula. 2 mm lateral displacement of the distal fracture is seen. The medial aspect of the fracture occurs at the level of the ankle joint. No bony destructive lesion is seen. JOINTS: The ankle mortise is normally aligned. SOFT TISSUE: There is soft tissue swelling of the ankle. Vascular calcifications are present. IMPRESSION: Minimally displaced fracture of the distal right fibula. DATA REPOSITORY: RADIATION DOSE DELIVERED:
== END 2024-06-01 14:17 ==
PROVIDERS: PCP Family Medicine; Visit Provider Nurse Practitioner Family
DX: S82.831A Other fracture of upper and lower end of right fibula, initial encounter for closed fracture (principal); X58.XXXA Exposure to other specified factors, initial encounter
CPT/HCPCS: 73590; 73610

== ENCOUNTER 2024-06-11 10:56 | Outpatient (REF) | payer MEDICARE, SELFPAY ==
[2024-06-11 15:14] LABS: Anion Gap 5.6 mmol/L (3-11); BUN 35 mg/dL (7-18); CO2 26.4 mmol/L (21.0-32.0); CREATININE 1.8 mg/dL (0.70-1.30); Calcium 9.3 mg/dL (8.5-10.1); Chloride 108 mmol/L (98-107); Estimated GFR 42.03 (mL/min/1.73m2); Glucose 172 mg/dL (74-106); Potassium 5.2 mmol/L (3.5-5.1); Sodium 140 mmol/L (136-145)
== END 2024-06-11 10:57 | disposition home or self-care (01) ==
LOC: NCHCN 10:56
PROVIDERS: PCP Family Medicine; Visit Provider Family Medicine
DX: N18.30 Chronic kidney disease, stage 3 unspecified (principal)
CPT/HCPCS: 80048

== ENCOUNTER 2024-06-15 01:50 | Outpatient (CLI) | payer MEDICARE, SELFPAY ==
--- NOTE | 2024-06-15 11:30 | DI.RAD_ITS ---
Exam(s) XR ANKLE RT COMPLETE EXAM: XR ANKLE RT COMPLETE INDICATION: RT ANKLE PAIN,M25.571,UNEXPLAINED SWELLING,BRUISE MEDIAL HEEL AND ANT ANKLE. COMPARISON: CR XR ANKLE RT COMPLETE from 06/01/2024 TECHNIQUE: 2D digital imaging was performed. Three views. FINDINGS: Stable alignment of lateral malleolar fracture. No ankle mortise widening visible on these nonstress views. Soft tissue swelling remains present. Vascular calcifications again noted. Impression: Stable alignment of the lateral malleolar fracture. DATA REPOSITORY: RADIATION DOSE DELIVERED:
== END 2024-06-15 02:10 ==
LOC: DI 01:51
PROVIDERS: PCP Family Medicine
DX: S82.451D Displaced comminuted fracture of shaft of right fibula, subsequent encounter for closed fracture with routine healing (principal); X58.XXXD Exposure to other specified factors, subsequent encounter
CPT/HCPCS: 73610

== ENCOUNTER 2024-08-30 21:43 | Inpatient (IN) | payer MEDICARE, SELFPAY ==
[2024-08-30 21:50] VITALS: BP 147/115; PULSE 83; RESP 18; TEMP 37.2; O2SAT 97
--- NOTE | 2024-08-30 22:15 | DI.RAD_ITS ---
Exam(s) XR ANKLE RT COMPLETE EXAM: XR ANKLE RT COMPLETE CLINICAL HISTORY: healing fracture, chronic ulcer lateral. TECHNIQUE: 2D digital imaging was performed. Three views. COMPARISON: CR XR TIB/FIB LT from 06/01/2024 CR XR ANKLE RT COMPLETE from 06/01/2024 CR XR ANKLE RT COMPLETE from 06/15/2024 FINDINGS: BONES: There is intramedullary monisha noted extending from the calcaneus through the distal 3rd of the t ibia. There are fractures of the medial and lateral malleoli. The lateral malleolus is mostly obs cured by overlying cast material. Bony destruction is not excluded. JOINTS: There is severe narrowing of the ankle joint space related to prior surgical fusion. SOFT TISSUE: A cast in is in place which somewhat obscures underlying bony detail. IMPRESSION: Evaluation of bony details limited by overlying cast material. Bony erosions of the distal fibular n ot excluded. There are no postoperative images for comparison. DATA REPOSITORY: RADIATION DOSE DELIVERED:
[2024-08-30] MEDS: Amoxicillin 875/Clav. 125 TAB PO (22:41)
[2024-08-30] MEDS: Sulfameth/Trimeth DS TAB 1 TAB PO (22:41)
[2024-08-30 23:18] LABS: HCT 32.6 % (40.0-50.0); HGB 10.8 g/dL (13.5-17.5); MCH 28.4 pg (27.0-33.0); MCHC 33.1 % (32.0-36.0); MCV 86 fL (80-95); MPV 11.1 fL (8.0-11.0); Platelet Count 252 10^3/uL (130-400); RDW 14.6 % (11.8-14.1)
[2024-08-30 23:21] LABS: ESR 83 mm/hr (0-20)
[2024-08-30 23:31] LABS: ALT 25 U/L (16-63); AST 22 U/L (15-37); Albumin 2.3 g/dL (3.4-5.0); Alkaline Phosphatase 335 U/L (46-116); BUN 66 mg/dL (7-18); Bilirubin, Total 0.94 mg/dL (0.2-1.0); Calcium 8.8 mg/dL (8.5-10.1); Chloride 99 mmol/L (98-107); Estimated GFR 22.77 (mL/min/1.73m2); Glucose 135 mg/dL (74-106); Potassium 4.4 mmol/L (3.5-5.1); Sodium 133 mmol/L (136-145); Total Protein 6.9 g/dL (6.4-8.2)
[2024-08-30 23:32] LABS: Absolute Lymphocyte Count 1.05 10^3/uL (1.2-3.4); Absolute Monocyte Count 2.37 10^3/uL (0.1-0.8); Absolute Neutrophil Count 22.89 10^3/uL (1.2-6.7)
[2024-08-30 23:33] LABS: WBC 26.31 10^3/uL (4.4-10.8)
[2024-08-30 23:34] LABS: Diff Comment Manual Differential; RBC Morphology Normal
[2024-08-30 23:40] LABS: C-Reactive Protein > 25.00 mg/dL (<or=0.5)
[2024-08-31] VITALS (61 sets, daily range): BP systolic 104–145; BP diastolic 63–90; PULSE 66–89; RESP 15–21; TEMP 36–37.1; O2SAT 89–99; BMI 38.8
--- NOTE | 2024-08-31 | DI.CT_ITS ---
Exam(s) CT LOWER EXTREMITY RT WO EXAM: CT LOWER EXTREMITY RT WO CLINICAL HISTORY: Evaluation of wound and fusion status. TECHNIQUE: Imaging Protocol: Axial computed tomography images with coronal and sagittal reformatted images were created and reviewed. CONTRAST MATERIAL: Noncontrast COMPARISON: CR,XR XR ANKLE RT COMPLETE from 08/30/2024 FINDINGS: Exam somewhat limited by artifact from hardware. Bones: Intramedullary monisha noted extending from calcaneus through the level of the a distal 3rd of the tibia. There are 2 screws in the distal shaft of the tibia, screw in the talus and 2 screws in the calcaneus. There is a fracture seen extending transversely through the medial malleolus with medial displacement. A portion of the lateral malleolus has been resected. There are multiple surrounding tiny bony fragments which are significantly displaced. The findings could be secondary to osteomyeli tis. There is some flattening of the talar dome and adjacent aspect of the distal tibia. There are a few tiny adjacent bony fragments. There is a transverse fracture through the anterior calcaneus, nondisplaced. There is an additional fracture through the sustentaculum of the talus which is mildly displaced. The distal most screw ter minates at the fracture line. Joints: Severe narrowing of the tibiotalar joint. Soft Tissues: Soft tissue edema throughout, greater around the malleoli. Large area of soft tissue ulceration at the lateral malleolus. No evidence of abscess. Additional mild soft tissue defect see n posterior to the calcaneus. Vascular calcifications. Muscular atrophy. IMPRESSION: Postsurgical changes with intramedullary monisha extending from calcaneus through distal 3rd of the tibia . Fractures of the medial malleolus and calcaneus. Fragmentation of the lateral malleolus which is adjacent to the large ulcer could be secondary to osteomyelitis. No drainable abscess. RADIATION DOSE DELIVERED: 169.83mGy.cm Total DLP DATA REPOSITORY: All CT scans at this facility are submitted to the National Radiology Data Registry (NRDR) Dose Index Registry (DIR) with the [employer] (ACR). RADIATION OPTIMIZATION: All CT scans at this facility use at least one of these dose optimization te chniques: automated exposure control; mA and/or kV adjustment per patient size (includes targeted exa ms where dose is matched to clinical indication); or iterative reconstruction.
--- NOTE | 2024-08-31 00:04 | ED.GENADUL_ITS ---
Discharge Plan Disposition Patient Disposition: Admit to [facility] Condition: Good Discharge Details Chief Complaint: Orthopedic Clinical Impression: Diabetic foot ulcer, Diabetes, PVD (peripheral vascular disease) Primary Care Provider: Kalli Gamble V ED Provider: Morenita Lord Home Meds and New Rx's Prescriptions: No Action polyethylene glycol 3350 17 gram/dose powder 238 g PO ONCE Qty: 238 0RF Rx Instructions: take per colonoscopy instructions famotidine 20 mg tablet 20 mg PO DAILY rosuvastatin 40 mg tablet 40 mg PO DAILY aspirin 81 mg tablet,delayed release (DR/EC) 81 mg PO DAILY clopidogrel 75 mg tablet 75 mg PO DAILY ergocalciferol (vitamin D2) 50,000 unit tablet 5,000 unit PO DAILY Glucagon Emergency Kit (human) 1 mg recon soln 1 mg subcut Q20M PRN Rx Instructions: until target blood sugar attained albuterol sulfate [Ventolin HFA] 90 mcg/actuation HFA aerosol inhaler 2 puff inhalation Q6H PRN ranolazine 500 mg tablet extended release 12 hr 500 mg PO BID metoprolol succinate 100 mg tablet extended release 24 hr 100 mg PO BID amitriptyline 50 mg tablet 100 mg PO QHS isosorbide mononitrate 60 mg tablet extended release 24 hr 60 mg PO DAILY nitroglycerin 400 mcg/spray spray,non-aerosol 1 spray translingual Q5M PRN Rx Instructions: do not exceed 3 doses per episode oxycodone-acetaminophen [Percocet] 10-325 mg tablet 1 tab PO BID PRN duloxetine 60 mg capsule,delayed release(DR/EC) 60 mg PO BID (DME) blood-glucose meter [EnconcertTouch Ultra2 Meter] Kit MISCELLANEOUS glucagon HCl [Glucagon (HCl) Emergency Kit] 1 mg Recon Soln 1 mg IM USEASDIRECTD pantoprazole 40 mg tablet,delayed release (DR/EC) 40 mg PO BID Patient Comments: TAKE 1 TABLET BY MOUTH TWICE DAILY insulin aspart U-100 [Novolog U-100 Insulin aspart] 100 unit/mL solution continuous subcutaneous infusion (DME) Dexcom G6 Sensor Device MISCELLANEOUS Patient Comments: 1 DEVICE EVERY 10 DAYS HPI General Mode of arrival: EMS . Date/Time Provider Initiated Documentation: 08/30/24 22:09 . Limitations to Documentation: no limitations . Information obtained by: patient . HPI Narrative: 64yo M with hx IDDM, CAD,HTN, HLD, DARIO, neuropathy, presenting for chronic foot ulcer. Reports that [place] [facility] [place] and has an appointment in the morning to discuss hyperbarics, but he does not have a ride in the morning and so needed to come here first. Broke his right ankle in May of last year with surgical repair, since then has had non-healing wound to his right lateral ankle. Not on antibiotics. Today noticed thick white/yellow discharge from the wound which is new. No pain. No new numbness. Otherwise in his usual state of health with no fevers, chills, rash, nausea, vomiting, abdominal pain, or other concerns. Related Data Home Medications ?Medication ?Instructions ?Recorded ?Confirmed blood-glucose meter (EnconcertTouch 07/18/20 08/30/24 Ultra2 Meter kit) glucagon HCl 1 mg solution for 1 mg IM USEASDIRECTD for severe 07/18/20 08/30/24 injection (Glucagon (HCl) hypoglycemia Emergency Kit) albuterol sulfate 90 mcg/actuation 2 puff inhalation Q6H PRN 06/07/21 08/30/24 aerosol inhaler (Ventolin HFA) amitriptyline 50 mg tablet 100 mg PO QHS 06/07/21 08/30/24 aspirin 81 mg tablet,delayed 81 mg PO DAILY 06/07/21 08/30/24 release clopidogrel 75 mg tablet 75 mg PO DAILY 06/07/21 08/30/24 duloxetine 60 mg capsule,delayed 60 mg PO BID 06/07/21 08/30/24 release ergocalciferol (vitamin D2) 50,000 5,000 unit PO DAILY 06/07/21 08/30/24 unit tablet famotidine 20 mg tablet 20 mg PO DAILY 06/07/21 08/30/24 glucagon 1 mg solution for 1 mg subcut Q20M PRN 06/07/21 08/30/24 injection (Glucagon Emergency Kit) isosorbide mononitrate 60 mg 60 mg PO DAILY 06/07/21 08/30/24 tablet,extended release 24 hr metoprolol succinate 100 mg 100 mg PO BID 06/07/21 08/30/24 tablet,extended release 24 hr nitroglycerin 400 mcg/spray 1 spray translingual Q5M PRN 06/07/21 08/30/24 translingual oxycodone-acetaminophen 10 mg-325 1 tab PO BID PRN 06/07/21 08/30/24 mg tablet (Percocet) ranolazine 500 mg tablet,extended 500 mg PO BID 06/07/21 08/30/24 release,12 hr rosuvastatin 40 mg tablet 40 mg PO DAILY 06/07/21 08/30/24 polyethylene glycol 3350 17 238 g PO ONCE colonoscopy prep 11/30/21 08/30/24 gram/dose oral powder #238 grams blood-glucose sensor (Dexcom G6 08/30/24 08/30/24 Sensor device) insulin aspart U-100 100 unit/mL continuous subcutaneous infusion 08/30/24 subcutaneous solution (Novolog U-100 Insulin aspart) pantoprazole 40 mg tablet,delayed 40 mg PO BID 08/30/24 08/30/24 release Previous Rx's ?Medication ?Instructions ?Recorded polyethylene glycol 3350 17 238 g PO ONCE colonoscopy prep 11/30/21 gram/dose oral powder #238 grams Allergies Allergy/AdvReac Type Severity Reaction Status Date / Time Penicillins Allergy Unknown tolerated Unverified 12/22/21 17:02 Zosyn on admission 06/2016 insulin glargine, human AdvReac Intermediate Diarrhea Unverified 12/22/21 17:02 recombin. a (From Lantus) liraglutide (From Victoza) AdvReac Intermediate Diarrhea Unverified 12/22/21 17:02 lorazepam AdvReac Intermediate Loopy Unverified 12/22/21 17:02 metformin AdvReac Intermediate Diarrhea Unverified 12/22/21 17:02 methadone AdvReac Intermediate Loopy Unverified 12/22/21 17:02 pregabalin (From Lyrica) AdvReac Intermediate Diarrhea Verified 12/22/21 17:02 gabapentin AdvReac Mild loopy Unverified 12/22/21 17:02 morphine AdvReac Unknown Flushing Unverified 12/22/21 17:02 when given too fast General Stated Complaint: Orthopedic CARLOS EDUARDO: 3 Review of Systems Narrative: see HPI Exam Narrative Exam Narrative: General: Alert, well appearing, well nourished, in no acute distress. Head: Normocephalic, atraumatic Neck: Trachea midline, ?Neck supple. ENT: ?MMM.? No oropharygeal lesions or exudate. Cardiac: ?RRR, no murmurs appreciated Resp: No respiratory distress. CTAB. Abd: ?Soft, non-distended, nontender Extremities: Left BKA. Right leg/ankle in cast with cutout to medial malleoulus; dressing in place. Underneath dressing ~2cm chronic appearing ulcer with copious thick purulent drainage. Probes deeply but not unequivocally to bone. Capillary refill intact distally. Neurologic: GCS 15. ? Moves all extremities freely against gravity Course Vital Signs Vital signs: Vital Signs Temperature 37.2 C 08/30/24 21:50 Pulse 83 08/30/24 21:50 Respiratory Rate 18 08/30/24 21:50 Blood Pressure 147/115 H 08/30/24 21:50 Pulse Oximetry 97 08/30/24 21:50 Temperature 37.2 C 08/30/24 21:50 Temperature Source Temporal Artery Scan 08/30/24 21:50 Pulse 83 08/30/24 21:50 Respiratory Rate 18 08/30/24 21:50 Blood Pressure 147/115 H 08/30/24 21:50 Blood Pressure Position Sitting 08/30/24 21:50 Pulse Oximetry 97 08/30/24 21:50 Oxygen Delivery Method Room Air 08/30/24 21:50 Oxygen Flow Rate 0 08/30/24 21:50 Pain Level 8 08/30/24 21:55 Lab/Test Results Lab/Test Results: 08/30/24 22:53 Foot - Right Skin Culture - Pending Laboratory Tests Range/Units 08/30/24 23:11 WBC (4.4-10.8) 10^3/uL 26.31 H* RBC (4.36-5.78) 10^6/uL 3.80 L Hgb (13.5-17.5) g/dL 10.8 L Hct (40.0-50.0) % 32.6 L MCV (80-95) fL 86 MCH (27.0-33.0) pg 28.4 MCHC (32.0-36.0) % 33.1 RDW (11.8-14.1) % 14.6 H Plt Count (130-400) 10^3/uL 252 MPV (8.0-11.0) fL 11.1 H Immature Gran % % 0.0 Neutrophils % % 87.0 Lymphocytes % % 4.0 Monocytes % % 9.0 Eosinophils % % 0.0 Basophils % % 0.0 Nucleated RBC % (0.0-0.3) % 0.0 Absolute Neutrophils (1.2-6.7) 10^3/uL 22.89 H Absolute Lymphocytes (1.2-3.4) 10^3/uL 1.05 L Absolute Monocytes (0.1-0.8) 10^3/uL 2.37 H Absolute Eosinophils (0.0-0.7) 10^3/uL 0.00 Absolute Basophils (0.0-0.2) 10^3/uL 0.00 RBC Morphology Normal ESR (0-20) mm/hr 83 H Sodium (136-145) mmol/L 133 L Potassium (3.5-5.1) mmol/L 4.4 Chloride (98-107) mmol/L 99 Carbon Dioxide (21.0-32.0) mmol/L 23.0 Anion Gap (3-11) mmol/L 11.0 BUN (7-18) mg/dL 66 H Creatinine (0.70-1.30) mg/dL 3.0 H Est GFR (CKD-EPI 2020) (mL/min/1.73m2) 22.77 Glucose (74-106) mg/dL 135 H Calcium (8.5-10.1) mg/dL 8.8 Total Bilirubin (0.2-1.0) mg/dL 0.94 AST (15-37) U/L 22 ALT (16-63) U/L 25 Alkaline Phosphatase (46-116) U/L 335 H C-Reactive Protein (<or=0.5) mg/dL > 25.00 H Total Protein (6.4-8.2) g/dL 6.9 Albumin (3.4-5.0) g/dL 2.3 L Medical Decision Making 64yo M with hx IDDM, CAD,HTN, HLD, DARIO, neuropathy, presenting for chronic foot ulcer. Broke his ankle in May requiring surgical repair and has had a chronic wound since then. Reports that [place] [facility] [place] and has an appointment in the morning to discuss hyperbarics; today noted thick white drainage. No pain or new numbness. Systemically well. Vital signs reassuring on arrival. Not septic. On exam he has a cast to his right leg/ankle in cast with a ~2cm chronic appearing ulcer near lateral maellolus with copious thick purulent drainage. Probes deeply but not unequivocally to bone. Will treat for diabetic foot infection initially with PO augmentin and bactrim (pt with pxn allergy listed but denies any antibiotic allergies and has been on zosyn in the past without issue) while awaiting results of workup. Labs reviewed as below, CBC with marked leukocytosis to 26 and mild anemia, CMP with elevated Cr at 3.0 (baseline appears to be around 2.0 on [facility] record review), ESR markeldy elevated at 83, and CRP >25. XR independently reviewed; agree with radiology read below concerning for osteo. Discuss[place] [facility] [place]; would like to accept patient [place] [facility] [place] they have no capacity at this time. Potentially tomorrow. After reviewing his records, he has not had treatment for osteomyeltis before but has been on augment & doxycyline for cellulitis. For now advised admission for broad spectrum IV antibiotics, MRI in the morning, and requested that we reach out back to the transfer center at 10am for possible acceptance. Discussed with [facility] hospitalist Dr. Neely who requested that I speak with [facility] orthopedics and request they admit they patient. Discussed with [facility] orthopedics Dr. Ocasio; pt accepted to orthopedic service with medicine consulting. Awaiting transfer to the floor. Medical Records Medical records reviewed: Yes I reviewed the patient's medical records. Imaging Data Radiologic Study: Imaging: X-Ray Radiologist's impression: IMPRESSION: Internal fixation monisha and screws through the distal tibia, talus, and calcaneus. Healing distal tibia and fibula fractures. There may be erosive change of the distal fibula such as can be seen with osteomyelitis; however, overlying cast obscures bony detail Lab Data Lab results reviewed: Yes I reviewed the patient's lab results. Labs: 08/30/24 22:53 Foot - Right Skin Culture - Pending Laboratory Tests Range/Units 08/30/24 23:11 WBC (4.4-10.8) 10^3/uL 26.31 H* RBC (4.36-5.78) 10^6/uL 3.80 L Hgb (13.5-17.5) g/dL 10.8 L Hct (40.0-50.0) % 32.6 L MCV (80-95) fL 86 MCH (27.0-33.0) pg 28.4 MCHC (32.0-36.0) % 33.1 RDW (11.8-14.1) % 14.6 H Plt Count (130-400) 10^3/uL 252 MPV (8.0-11.0) fL 11.1 H Immature Gran % % 0.0 Neutrophils % % 87.0 Lymphocytes % % 4.0 Monocytes % % 9.0 Eosinophils % % 0.0 Basophils % % 0.0 Nucleated RBC % (0.0-0.3) % 0.0 Absolute Neutrophils (1.2-6.7) 10^3/uL 22.89 H Absolute Lymphocytes (1.2-3.4) 10^3/uL 1.05 L Absolute Monocytes (0.1-0.8) 10^3/uL 2.37 H Absolute Eosinophils (0.0-0.7) 10^3/uL 0.00 Absolute Basophils (0.0-0.2) 10^3/uL 0.00 RBC Morphology Normal ESR (0-20) mm/hr 83 H Sodium (136-145) mmol/L 133 L Potassium (3.5-5.1) mmol/L 4.4 Chloride (98-107) mmol/L 99 Carbon Dioxide (21.0-32.0) mmol/L 23.0 Anion Gap (3-11) mmol/L 11.0 BUN (7-18) mg/dL 66 H Creatinine (0.70-1.30) mg/dL 3.0 H Est GFR (CKD-EPI 2020) (mL/min/1.73m2) 22.77 Glucose (74-106) mg/dL 135 H Calcium (8.5-10.1) mg/dL 8.8 Total Bilirubin (0.2-1.0) mg/dL 0.94 AST (15-37) U/L 22 ALT (16-63) U/L 25 Alkaline Phosphatase (46-116) U/L 335 H C-Reactive Protein (<or=0.5) mg/dL > 25.00 H Total Protein (6.4-8.2) g/dL 6.9 Albumin (3.4-5.0) g/dL 2.3 L Quality:[facility] Health Related Social Needs: No Data to Display PFSH All Active Problems (Updated 08/31/24 @ 05:37 by Morenita Lord MD) PVD (peripheral vascular disease) (Chronic) Diabetes (Chronic) Diabetic foot ulcer (Acute) Cellulitis of right ankle (Acute) No-show for appointment (Acute) Medical History Retinal disease, left Uses continuous positive airway pressure (CPAP) ventilation at home Hypotension Dehydration Below-knee amputation of left lower extremity Peripheral neuropathy Cervicalgia Headache, post-traumatic COVID-19 Phantom limb pain Tobacco use Chronic kidney disease, stage III (moderate) Inferior [place] 2006 Hx of pancreatitis Exposure to COVID-19 virus 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 CAD (coronary artery disease) multiple stents 2006 Diabetes mellitus GERD (gastroesophageal reflux disease) HTN (hypertension) Hypercholesterolemia DARIO (obstructive sleep apnea) Obesities, morbid Migraine Neuropathy Diabetic foot ulcer Poorly controlled diabetes mellitus Chest pain Surgical History Hx of cardiac catheterization Status post below knee amputation of left lower extremity History of lung biopsy History of heart artery stent S/P foot surgery Social History Smoking/Tobacco Use Status: Former Tobacco Use Quit Date: 05/30/24 Smoking risk assessment performed?: Yes Alcohol Intake: never Drug use: Never Substance use type: does not use Housing: house Do you feel safe at home: Yes Do you feel safe in your relationship?: Yes
--- NOTE | 2024-08-31 01:25 | DI.VRAD_ITS ---
PROCEDURE INFORMATION: Exam: XR Right Ankle Exam date and time: 08/30/2024 11:31 PM Age: 64 years old Clinical indication: Pain; Right; Prior surgery; Surgery date: 1-6 months; Surgery type: Ankle FX; Healing fracture, chronic ulcer lateral TECHNIQUE: Imaging protocol: Radiologic exam of the right ankle. Views: 3 or more views. COMPARISON: CR XR ANKLE RT COMPLETE 06/15/2024 11:17 AM FINDINGS: Bones/joints: Internal fixation monisha and screws through the distal tibia, talus, and calcaneus. Healing distal tibia and fibula fractures. There may be erosive change of the distal fibula such as can be seen with osteomyelitis; however, overlying cast obscures bony detail. Soft tissues: Normal. IMPRESSION: Internal fixation monisha and screws through the distal tibia, talus, and calcaneus. Healing distal tibia and fibula fractures. There may be erosive change of the distal fibula such as can be seen with osteomyelitis; however, overlying cast obscures bony detail. Dictated and Authenticated by: Fermín Virgen MD. Orderin Pop Xavier MD
[2024-08-31] MEDS: PIPERACILLIN/TAZO 3.375 GM in Normal Saline 50 ML IVPB ×4 (03:52→23:37)
[2024-08-31] MEDS: LINEZOLID 600 MG/300 ML BAG 300 MG IVPB (03:52)
--- NOTE | 2024-08-31 04:41 | W.MEDCONSULT ---
Date of service: 08/31/24 Time of Service: 04:42 Assessment and Plan Assessment and plan (1) Cellulitis of right ankle: Start date: 08/31/24 Status: Acute Assessment and plan: This is a 64-year-old gentleman presenting with increase redness and swelling of his right lateral ankle with open wound now draining what looks like purulent material. X-ray suggests osteomyelitis of patient has no previous diagnosis of osteomyelitis. He does have hardware in his right ankle fracture status post repair. And possible admit patient and treat with IV antibiotic therapy with communication ongoing with [facility] vascular surgery and orthopedics. Long-term patient may be treated by [facility] with hyperbaric treatment and IV antibiotic therapy. This may be a long-term issue. Patient is at risk for right BKA already having left BKA. Patient he did not want MRI of the ankle which Dr. Ocasio will arrange. Patient is a full code. l (2) Peripheral neuropathy: Assessment and plan: Continue outpatient medical therapy and pain management. (3) Tobacco use: Assessment and plan: Patient has quit in the last 2 to 3 months. He does have some element of COPD on exam but is not on inhalers as an outpatient. (4) Diabetes mellitus: Assessment and plan: Glucometer measurements before meals and at bedtime with moderate sliding scale coverage using short acting insulin while hospitalized. Hold outpatient medical therapy for now. (5) HTN (hypertension): Assessment and plan: Continue outpatient medical therapy and adjusting as needed. (6) CAD (coronary artery disease): Assessment and plan: No evidence of active ischemia or symptoms. Continue outpatient medical therapy and monitor. If possible, aspirin and Plavix should be continued but could be withheld if surgical procedures are considered. (7) DARIO (obstructive sleep apnea): Assessment and plan: Patient is on home CPAP with home settings to be used during hospital stay. (8) GERD (gastroesophageal reflux disease): Assessment and plan: Continue outpatient medical therapy with Protonix. History of Present Illness History of Present Illness Chief Complaint: New onset drainage from right ankle with poorly healing surgical wound. Narrative: This is a 64-year-old male patient who noticed that his ankle was deformed while walking on it and April 2024 prompting evaluation and being found to have a fractured ankle which required surgery at [facility]. He also has had PVD with vascular problems and had to have revascularization of his right lower extremity to help with the healing process. He is already status post left BKA for vascular insufficiency. He is a diabetic and states he is fairly well-controlled. Since his ankle surgery the patient has had a poorly healing wound over the lateral ankle and recently has noticed white discharge from the ankle with increased redness and slight swelling. He has a cast in place with a window cut out over the lateral malleolus of the right ankle. He does have peripheral neuropathy with his diabetes and essentially does not feel the pain of his fractured ankle. He is obese and appears much older than stated age speaking very slowly and being a very poor historian. He denies any fever or chills and otherwise has been medically stable. ED evaluation did reveal elevated WBC from his baseline leukocytosis with elevated CRP and sed rate. Patient had called [facility] vascular surgery and orthopedics with scheduled outpatient follow-up later this morning though this now will be canceled with patient to be admitted for IV antibiotic therapy for his acute infection. They were discussing possible hyperbaric treatment with IV antibiotic therapy at the agency. No bed is available. Dr. Ocasio has been called and will admit the patient to his orthopedic service for treatment of patient's infection and poorly healing wound from his ankle fracture repair. Patient does appear to have chronic CKD with anemia from his diabetes as well as his peripheral neuropathy. I will review his chronic medical therapy for diabetes and hypertension with Dr. Ocasio to manage pain and IV antibiotic therapy. Consults Consult date: 08/31/24 Requesting physician: Torrey Ocasio Review of Systems Narrative: 13 point review of systems otherwise unrevealing or stable. PFSH All Active Problems (Updated 08/31/24 @ 05:00 by Ken Neely) Cellulitis of right ankle (Acute) No-show for appointment (Acute) Medical History Retinal disease, left Uses continuous positive airway pressure (CPAP) ventilation at home Hypotension Dehydration Below-knee amputation of left lower extremity Peripheral neuropathy Cervicalgia Headache, post-traumatic COVID-19 Phantom limb pain Tobacco use Chronic kidney disease, stage III (moderate) Inferior [place] 2006 Hx of pancreatitis Exposure to COVID-19 virus 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 CAD (coronary artery disease) multiple stents 2006 Diabetes mellitus GERD (gastroesophageal reflux disease) HTN (hypertension) Hypercholesterolemia DARIO (obstructive sleep apnea) Obesities, morbid Migraine Neuropathy Diabetic foot ulcer Poorly controlled diabetes mellitus Chest pain Surgical History Hx of cardiac catheterization Status post below knee amputation of left lower extremity History of lung biopsy History of heart artery stent S/P foot surgery Social History Smoking/Tobacco Use Status: Former Tobacco Use Quit Date: 05/30/24 Smoking risk assessment performed?: Yes Alcohol Intake: never Drug use: Never Substance use type: does not use Housing: house Do you feel safe at home: Yes Do you feel safe in your relationship?: Yes Exam Narrative Exam Narrative: General: Patient appears older than stated age, unkempt, alert and oriented to at least person and place. He wanders in conversation and appears to have problems with short-term memory at times. HEENT: Normocephalic, course and facial features, eyes with pupils equal and reactive to light symmetrically, extraocular movement intact and sclera anicteric. Oropharynx slightly dry mucosa. Neck: Supple without JVD. Back: Stooped posture without CVA tenderness. Lungs: Fair aeration with bronchovesicular breath sound diffusely, no focalizing rales or rhonchi. No expiratory wheeze. Heart: Regular rate and rhythm with distant heart sounds, no appreciable murmur or gallop. Abdomen: Obese contour, soft and nontender to palpation with no palpable hepatosplenomegaly. Bowel sounds positive in all quadrants. Genitalia/rectal: Exam deferred. Extremities: Without clubbing, cyanosis or grossly pitting edema. Patient does have left BKA with stump wrapped. Right leg and ankle have a plaster cast with window over the lateral malleolus revealing erythematous, warm skin with a central ulcer draining whiteliquid material. Decreased cap refill of her right toes. Skin: Normal color, warm and moist. Neuro: Cranial nerves II through XII gross intact, no focal motor deficits or tremor. Decrease light touch sensation lower extremities. Psych: Flattened affect with depressed mood, no abnormal thought processes. Remote memory intact with recent memory less intact. Patient is hesitant during conversation and requires redirection at times. Results Last Vital Signs Temp 37.2 C 08/30/24 21:50 Pulse 83 08/30/24 21:50 Resp 18 08/30/24 21:50 BP 147/115 H 08/30/24 21:50 Pulse Ox 97 08/30/24 21:50 Labs 08/30/24 23:11 08/30/24 23:11 Labs: Laboratory Results - last 24 hr 08/30/24 23:11 WBC 26.31 H* RBC 3.80 L Hgb 10.8 L Hct 32.6 L MCV 86 MCH 28.4 MCHC 33.1 RDW 14.6 H Plt Count 252 MPV 11.1 H Immature Gran % 0.0 Neutrophils % 87.0 Lymphocytes % 4.0 Monocytes % 9.0 Eosinophils % 0.0 Basophils % 0.0 Nucleated RBC % 0.0 Absolute Neutrophils 22.89 H Absolute Lymphocytes 1.05 L Absolute Monocytes 2.37 H Absolute Eosinophils 0.00 Absolute Basophils 0.00 RBC Morphology Normal ESR 83 H Sodium 133 L Potassium 4.4 Chloride 99 Carbon Dioxide 23.0 Anion Gap 11.0 BUN 66 H Creatinine 3.0 H Est GFR (CKD-EPI 2020) 22.77 Glucose 135 H Calcium 8.8 Total Bilirubin 0.94 AST 22 ALT 25 Alkaline Phosphatase 335 H C-Reactive Protein > 25.00 H Total Protein 6.9 Albumin 2.3 L Imaging Imaging Studies: Exam: XR Right Ankle Exam date and time: 08/30/2024 11:31 PM Age: 64 years old Clinical indication: Pain; Right; Prior surgery; Surgery date: 1-6 months; Surgery type: Ankle FX; Healing fracture, chronic ulcer lateral TECHNIQUE: Imaging protocol: Radiologic exam of the right ankle. Views: 3 or more views. COMPARISON: CR XR ANKLE RT COMPLETE 06/15/2024 11:17 AM FINDINGS: Bones/joints: Internal fixation monisha and screws through the distal tibia, talus, and calcaneus. Healing distal tibia and fibula fractures. There may be erosive change of the distal fibula such as can be seen with osteomyelitis; however, overlying cast obscures bony detail. Soft tissues: Normal. IMPRESSION: Internal fixation monisha and screws through the distal tibia, talus, and calcaneus. Healing distal tibia and fibula fractures. There may be erosive change of the distal fibula such as can be seen with osteomyelitis; however, overlying cast obscures bony detail.
[2024-08-31] MEDS: Normal Saline 1,000 ML 1000 ML IV (05:02)
[2024-08-31 07:47] LABS: Lab Add On Test DONE
[2024-08-31 08:03] LABS: Hemoglobin A1C 7.5 % (<5.7)
[2024-08-31] MEDS: Acetaminophen 500 MG TAB 1000 MG PO ×2 (08:09→20:48)
[2024-08-31] MEDS: Ranolazine 500 MG TABCR PO ×2 (08:09→20:48)
[2024-08-31] MEDS: Metoprolol CR 100 MG TABCR PO ×2 (08:10→20:48)
[2024-08-31] MEDS: DULoxetine 30 MG CAP 60 MG PO ×2 (08:10→20:49)
[2024-08-31] MEDS: Isosorbide Mononitrate 60 MG TABCR PO (08:10)
[2024-08-31] MEDS: Pantoprazole 40 MG TABCR PO ×2 (08:10→20:48)
[2024-08-31] MEDS: Rosuvastatin 20 MG TAB 40 MG PO (08:10)
[2024-08-31] MEDS: Famotidine 20 MG TAB PO (08:10)
[2024-08-31] MEDS: Clopidogrel 75 MG TAB PO (08:10)
[2024-08-31] MEDS: Aspirin E.C. 81 MG TABEC PO (08:11)
--- NOTE | 2024-08-31 08:16 | DI.VRAD_ITS ---
PROCEDURE INFORMATION: Exam: CT Right Lower Extremity, Ankle Exam date and time: 08/31/2024 5:44 AM Age: 64 years old Clinical indication: Other: Evaluation of wound and fusion status; Prior surgery; Surgery date: 1-6 months; Surgery type: FX plating/repair TECHNIQUE: Imaging protocol: CT of the right lower extremity without contrast was performed. Exam focused on the ankle. Radiation optimization: All CT scans at this facility use at least one of these dose optimization techniques: automated exposure control; mA and/or kV adjustment per patient size (includes targeted exams where dose is matched to clinical indication); or iterative reconstruction. COMPARISON: CR XR ANKLE RT COMPLETE 08/30/2024 11:31 PM FINDINGS: Bones/joints: There are again operative changes of hardware fixation with a monisha extending from the distal tibial shaft through the tibial plafond, through the talus and into the mid to distal calcaneus. This is secured with 2 screws proximally in the tibial shaft, 1 screw in the talus, and 2 screws distally in the calcaneus. The hardware creates artifact, somewhat degrading evaluation, and appears well seated in the bone. There is lucent defect through the plantar cortex of the calcaneus at the site of hardware insertion, with some fragmentation in the region. There is also variable fragmentation along the posterior, medial and lateral malleoli. The medial malleolus has a dominant fragment measuring up to 2.2 cm, displaced medially up to 8 mm. The lateral malleolus has largely been resected with multiple tiny fragments in the region. The articular contour of the talar dome is somewhat obscured by the hardware, but appears mildly flattened and with subcortical lucency, which could relate to fracture and/or avascular necrosis. Mildly displaced fracture also involves the sustentaculum ar of the calcaneus, with the distal margin of 1 of the securing screws in the region of the fracture line. Soft tissues: There is mild subcutaneous soft tissue edema about much of the distal leg, becoming more moderate and confluent about the ankle and into the midfoot, more mild distally. There is an area of soft tissue ulceration laterally at the level of the resected malleolus measuring approximately 1.8 x 1.3 cm in width and 0.8 cm in depth. No gross collection to indicate abscess is evident on this unenhanced exam. Considerable fatty atrophy involves much of the musculature of the calf and foot. Vasculature: Atherosclerotic vascular calcifications are noted. IMPRESSION: 1. Postoperative ankle, as on 08/30/2024 with hardware fusion from the distal tibial shaft through the talus and into the calcaneus. 2. Likely postoperative lucent defect through the plantar cortex of the calcaneus at the site of hardware insertion, with some fragmentation in the region. 3. Variable fragmentation along the posterior, medial and lateral malleoli, the latter of which has largely been resected with multiple tiny fragments in the region. 4. Mildly flattened articular contour of the talar dome with subcortical lucency, could relate to fracture and/or avascular necrosis. 5. Mildly displaced fracture of the sustentaculum ar of the calcaneus with the distal margin of a securing screw in the region of the fracture line. 6. Soft tissue edema about much of the distal leg, ankle and foot as described, with area of ulceration laterally at the level of the resected lateral malleolus. 7. Considerable fatty atrophy of much of the musculature of the calf and foot. Dictated and Authenticated by: Justus Quesada MD. Orderin Amarjit Hirsch MD
[2024-08-31 08:25] LABS: Vitamin D 25 Total 23.5 ng/mL (30-100)
--- NOTE | 2024-08-31 09:04 | ANES.PREOP_ITS ---
General Info Date of Service Date Performed: 08/31/24 Height: 5 ft 11 in Weight: 126.325 kg Body Mass Index (BMI): 38.8 Surgical Procedure: Operation Date: 08/31/24 14:55 Proposed Procedure Side Surgeon p I&D Foot Right Torrey Ocasio MD Meds Allergies and Home Medications Allergies Allergy/AdvReac Type Severity Reaction Status Date / Time Penicillins Allergy Unknown tolerated Unverified 12/22/21 17:02 Zosyn on admission 06/2016 insulin glargine, human AdvReac Intermediate Diarrhea Unverified 12/22/21 17:02 recombin. a (From Lantus) liraglutide (From Victoza) AdvReac Intermediate Diarrhea Unverified 12/22/21 17:02 lorazepam AdvReac Intermediate Loopy Unverified 12/22/21 17:02 metformin AdvReac Intermediate Diarrhea Unverified 12/22/21 17:02 methadone AdvReac Intermediate Loopy Unverified 12/22/21 17:02 pregabalin (From Lyrica) AdvReac Intermediate Diarrhea Verified 12/22/21 17:02 gabapentin AdvReac Mild loopy Unverified 12/22/21 17:02 morphine AdvReac Unknown Flushing Unverified 12/22/21 17:02 when given too fast Home Medication ?Medication ?Instructions ?Recorded blood-glucose meter ([employer] 07/18/20 Ultra2 Meter kit) glucagon HCl 1 mg solution for 1 mg IM USEASDIRECTD for severe 07/18/20 injection (Glucagon (HCl) hypoglycemia Emergency Kit) albuterol sulfate 90 mcg/actuation 2 puff inhalation Q6H PRN 06/07/21 aerosol inhaler (Ventolin HFA) amitriptyline 50 mg tablet 100 mg PO QHS 06/07/21 aspirin 81 mg tablet,delayed 81 mg PO DAILY 06/07/21 release clopidogrel 75 mg tablet 75 mg PO DAILY 06/07/21 duloxetine 60 mg capsule,delayed 60 mg PO BID 06/07/21 release ergocalciferol (vitamin D2) 50,000 5,000 unit PO DAILY 06/07/21 unit tablet famotidine 20 mg tablet 20 mg PO DAILY 06/07/21 glucagon 1 mg solution for 1 mg subcut Q20M PRN 06/07/21 injection (Glucagon Emergency Kit) isosorbide mononitrate 60 mg 60 mg PO DAILY 06/07/21 tablet,extended release 24 hr metoprolol succinate 100 mg 100 mg PO BID 06/07/21 tablet,extended release 24 hr nitroglycerin 400 mcg/spray 1 spray translingual Q5M PRN 06/07/21 translingual oxycodone-acetaminophen 10 mg-325 1 tab PO BID PRN 06/07/21 mg tablet (Percocet) ranolazine 500 mg tablet,extended 500 mg PO BID 06/07/21 release,12 hr rosuvastatin 40 mg tablet 40 mg PO DAILY 06/07/21 polyethylene glycol 3350 17 238 g PO ONCE colonoscopy prep 11/30/21 gram/dose oral powder #238 grams blood-glucose sensor (Rounds G6 08/30/24 Sensor device) insulin aspart U-100 100 unit/mL continuous subcutaneous infusion 08/30/24 subcutaneous solution (Novolog U-100 Insulin aspart) pantoprazole 40 mg tablet,delayed 40 mg PO BID 08/30/24 release Current Visit Medications: Current Medications Generic Name Dose Route Start Last Admin Trade Name Freq PRN Reason Stop Dose Admin Acetaminophen 1,000 mg 08/31/24 08:30 08/31/24 08:09 Acetaminophen 500 Mg Tab PO 1,000 mg TID OXANA Administration Albuterol Sulfate 2 puff 08/31/24 06:17 Albuterol Hfa 8 Gm 60 Puff Inh IH Q6H PRN PRN Amitriptyline HCl 100 mg 08/31/24 20:00 Amitriptyline 50 Mg Tab PO HS OXANA Aspirin 81 mg 08/31/24 08:30 08/31/24 08:11 Aspirin E.C. 81 Mg Tabec PO 81 mg DAILY OXANA Administration Clopidogrel Bisulfate 75 mg 08/31/24 08:30 08/31/24 08:10 Clopidogrel 75 Mg Tab PO 75 mg DAILY OXANA Administration Dextrose 0 gm 08/31/24 06:17 Glucose Oral Gel 15 Gm/37.5 Gm Tube PO DIRECTED PRN Dextrose/Water 0 gm 08/31/24 06:17 Dextrose 50%-Water 25 Gm/50 Ml Syr IVP DIRECTED PRN Docusate Sodium 100 mg 08/31/24 06:17 Docusate Sodium 100 Mg Cap PO BID PRN PRN Constipation Duloxetine HCl 60 mg 08/31/24 08:30 08/31/24 08:10 Duloxetine 30 Mg Cap PO 60 mg BID OXANA Administration Famotidine 20 mg 08/31/24 08:30 08/31/24 08:10 Famotidine 20 Mg Tab PO 20 mg DAILY [facility] Administration Piperacillin Sod/Tazobactam 50 mls @ 100 mls/hr 08/31/24 10:00 Sod 3.375 gm/ Sodium Chloride IVPB Q8H [facility] Ringer's Solution 1,000 mls @ 200 mls/hr 08/31/24 08:00 IV INFUSION [facility] Insulin Aspart 0 - 33 units 08/31/24 06:17 Insulin Aspart 100 Units/Ml Unit SC DAILY PRN PRN Insulin Aspart 0 units 08/31/24 08:00 08/31/24 08:55 Insulin Aspart 300 Units/3 Ml Pen SC Not Given 0800,1200,1700,2200 [facility] Protocol Isosorbide Mononitrate 60 mg 08/31/24 08:30 08/31/24 08:10 Isosorbide Mononitrate 60 Mg Tabcr PO 60 mg DAILY [facility] Administration Metoprolol Succinate 100 mg 08/31/24 08:30 08/31/24 08:10 Metoprolol Cr 100 Mg Tabcr PO 100 mg BID [facility] Administration Oxycodone HCl 0 mg 08/31/24 06:17 Oxycodone 5 Mg Tab PO Q6H PRN PRN Pain Pantoprazole Sodium 40 mg 08/31/24 07:30 08/31/24 08:10 Pantoprazole 40 Mg Tabcr PO 40 mg BID@0730,2000 [facility] Administration Ranolazine 500 mg 08/31/24 08:30 08/31/24 08:09 Ranolazine 500 Mg Tabcr PO 500 mg BID [facility] Administration Rosuvastatin Calcium 40 mg 08/31/24 08:30 08/31/24 08:10 Rosuvastatin 20 Mg Tab PO 40 mg DAILY OXANA Administration REPLACED BY [facility] Active Problems Active Problems: Problem Status Onset Code PVD (peripheral vascular disease) Chronic I73.9 Diabetes Chronic E11.9 Diabetic foot ulcer Acute E11.621, L97.509 Cellulitis of right ankle Acute L03.115 No-show for appointment Acute Z91.199 Medical History Medical History Retinal disease, left Uses continuous positive airway pressure (CPAP) ventilation at home Hypotension Dehydration Below-knee amputation of left lower extremity Peripheral neuropathy Cervicalgia Headache, post-traumatic COVID-19 Phantom limb pain Tobacco use Chronic kidney disease, stage III (moderate) Inferior [place] 2006 Hx of pancreatitis Exposure to COVID-19 virus 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 CAD (coronary artery disease) multiple stents 2006 Diabetes mellitus GERD (gastroesophageal reflux disease) HTN (hypertension) Hypercholesterolemia DARIO (obstructive sleep apnea) Obesities, morbid Migraine Neuropathy Diabetic foot ulcer Poorly controlled diabetes mellitus Chest pain Surgical History Surgical History Hx of cardiac catheterization Status post below knee amputation of left lower extremity History of lung biopsy History of heart artery stent S/P foot surgery Tobacco Smoking/Tobacco Use Status: Former Tobacco Use Alcohol Alcohol Intake: never Substance Use Substance use: Never Substance use type: does not use Vital Signs and Lab Results Vital Signs Most Recent Vital Signs in EMR: Most Recent Vital Signs Temp Pulse Resp BP Pulse Ox 36.6 C 80 20 120/83 99 08/31/24 07:53 08/31/24 07:53 08/31/24 07:53 08/31/24 07:53 08/31/24 07:53 Point of Care Results Point of Care Results: Finger Stick Blood Glucose 93 08/31/24 08:55 Lab Results 08/30/24 23:11 08/31/24 10:00 Blood Type / Crossmatch: 2 No Data to Display Complete Blood Count: 2 White Blood Count 26.31 10^3/uL (4.4-10.8) H* 08/30/24 23:11 Red Blood Count 3.80 10^6/uL (4.36-5.78) L 08/30/24 23:11 Hemoglobin 10.8 g/dL (13.5-17.5) L 08/30/24 23:11 Hematocrit 32.6 % (40.0-50.0) L 08/30/24 23:11 Platelet Count 252 10^3/uL (130-400) 08/30/24 23:11 Complete Metabolic Panel: 2 Sodium 134 mmol/L (136-145) L 08/31/24 10:00 Potassium 4.1 mmol/L (3.5-5.1) 08/31/24 10:00 Chloride 102 mmol/L (98-107) 08/31/24 10:00 Carbon Dioxide 22.5 mmol/L (21.0-32.0) 08/31/24 10:00 BUN 62 mg/dL (7-18) H 08/31/24 10:00 Creatinine 2.9 mg/dL (0.70-1.30) H 08/31/24 10:00 Est GFR (CKD-EPI 2020) 23.72 (mL/min/1.73m2) 08/31/24 10:00 Calcium 8.8 mg/dL (8.5-10.1) 08/31/24 10:00 Albumin 2.3 g/dL (3.4-5.0) L 08/30/24 23:11 Glucose 94 mg/dL (74-106) 08/31/24 10:00 Hemoglobin A1c 7.5 % (<5.7) H 08/31/24 23:11 C-Reactive Protein > 25.00 mg/dL (<or=0.5) H 08/30/24 23:11 Liver Function Panel: 2 Alanine Aminotransferase (ALT/SGPT) 25 U/L (16-63) 08/30/24 23: 11 Aspartate Amino Transf (AST/SGOT) 22 U/L (15-37) 08/30/24 23:11 Coagulation Panel: 2 No Data to Display Cardiac Panel: 2 No Data to Display Arterial Blood Gas: 2 No Data to Display Venous Blood Gas: 2 No Data to Display Pancreas Panel: 2 No Data to Display Thyroid Panel: 2 No Data to Display Infectious Disease: 2 No Data to Display Blood Cultures: 2 No Data to Display Toxicology Panel: 2 No Data to Display Anesthesia Assessment and Plan Anesthesia History Personal History: No History of Anesthesia Complications Family History: No Family History of Anesthesia Complications Exercise Tolerance Exercise Tolerance: Metabolic Equivalents<4 Cardiac & Pulmonary Exam Cardiac Exam: Normal S1/S2 Heart Sounds Pulmonary Exam: Clear Bilateral Breath Sounds Implantable Cardiac Device Does patient have a Pacemaker or an ICD?: No Airway Exam Known Difficult Airway: No Mallampati Class: 4 Mouth Opening: Narrow (< 3cm) Thyromental Distance: Less than 3 cm Neck Range of Motion: Limited ROM Neck Circumference: Thick Teeth Condition: Edentulous ASA Classification ASA Score: ASA 3 Emergency Case?: No NPO Status NPO Status: NPO Clears >2 hours, Solids >8 hours Anesthesia Plan Resuscitation Status: Full Code Anesthesia Technique: MAC Anesthesia Airway Planned: Natural Airway Monitors Used: Standard Monitors Preoperative Comments:: 64 yo male for ankle I/D. recent ankle fixation at [facility], now needs washout. Sig PMHx: CAD (multiple stents/caths. isosorbide, clopidegrel), HTN (metoprolol), DARIO, CKD, DM (A1c 7.5), ECG/[facility]: sinus, LAD. ECHO/[facility]: mod LV dilation, LVEF 40%. WMA of inferior, inferolateral, and anterolateral vargas. no hemodynamic sig valve issues. mild . PFTs: Mild restrictive lung disease associated with mild diffusion defect. Previous Anes: - [facility], ankle, easy mask, mac 4 grade 1. no nerve block due to no LE sensation. Discussed plan of light sedation.
--- NOTE | 2024-08-31 09:09 | OCONE_ITS ---
Date of service: 08/31/24 Time of Service: 06:45 History of Present Illness History of Present Illness Chief Complaint: Right foot wound Narrative: Ed is a 64-year-old male with a complex medical history. Approximately on June 01 he suffered an injury to his right ankle. He is not specific on the details but was diagnosed with a bimalleolar ankle fracture. This was thought to be stable and he was treated nonoperatively by [facility] orthopedics. Unfortunate, he developed a wound over the dorsum of the right foot with some associated cellulitis. This was treated with IV antibiotics. He also had vascular surgery for the right leg due to diminished blood flow into the foot. 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 He is eventually discharged to home. He had some chronic wounds about the dorsum of the foot. However, a lateral based wound has developed over the past few weeks. He has been in contact with the orthopedic surgical team at [facility] who had advised him to come the emergency department although he had an appointment this morning in their wound care clinic to discuss hyperbaric treatment or other alternatives including surgical debridement for his wounds. He reports overall malaise. He denies true fevers or chills. He does report feeling slightly unwell. He has had significant increase in drainage about the lateral aspect of the right ankle. He also has dressings on the dorsum of the foot and the heel. He denies chest pain or shortness of breath. He does continue to follow his glucose with a continuous monitor. [facility] was called in consultation who recommended that he come down to [facility] for more definitive, tertiary care, as previously planned. However, there is no beds at [facility]. I discussed the case with the medical care evaluation specialist at [facility] as well as orthopedics but unfortunately there is no beds at this time. He remains slightly tachypneic and had a significantly elevated white count as well as elevated CRP and sed rate. Therefore, I recommended admission with initiation of IV antibiotics, broad-spectrum, followed by likely surgical debridement later today. Consults Consult date: 08/31/24 Requesting physician: Morenita Lord Consult Reason Right Infected Ankle Surgical Wound Assessment and Plan Assessment and plan (1) Surgical wound infection: Status: Acute (2) Diabetic foot ulcer: Status: Acute Assessment and plan: Ed has 3 primary wounds about the foot, one is just from pressure and represents more of a diabetic foot ulcer and the other 2 are from surgery. There is gross purulence and gross infection with significant leukocytosis and elevated inflammatory markers. He has multiple medical comorbidities and has been treated at [facility]. While I would prefer that he continues treatment care at [facility] as with the surgeons down there, there are no beds at [facility]. Given his presentation I offered surgical treatment with irrigation debridement along with IV antibiotics. Superficial culture was performed in the emergency department which will be followed. I will obtain cultures in the operating room but go ahead and start antibiotics given his leukocytosis and tachypnea with in the setting of his multiple comorbidities. I reviewed the surgery with him. I discussed the potential risk to include continued infection, bleeding, need for repeat procedures, worsening wounds. Despite these risk, he elects to proceed. He has been NPO. Will proceed today. (3) PVD (peripheral vascular disease): Status: Chronic Assessment and plan: Revascularized at [facility] although still with some sluggish blood flow per recent JADE. (4) Acute kidney injury superimposed on CKD: Status: Acute Assessment and plan: Creatinine increased to 3.0. This is up from his baseline. He had a similar episode with some infection earlier at [facility]. Continue with aggressive rehydration. Appreciate hospitalist consult. (5) Diabetes: Status: Chronic Assessment and plan: Appreciate hospitalist consult. Continue with his basal insulin and as needed dosing per his pump schedule. Default to the hospitalist recommendations. A1c is 7.5 and seems overall to be doing well based on previous notes here and at [facility]. Review of Systems All systems reviewed & are unremarkable except as noted in HPI and below PFSH All Active Problems (Updated 08/31/24 @ 15:13 by Torrey Ocasio MD) Surgical wound infection (Acute) CHF (congestive heart failure) (Chronic) Acute kidney injury superimposed on CKD (Acute) Deep vein thrombosis (DVT) prophylaxis declined (Acute) Severe sepsis (Acute) PVD (peripheral vascular disease) (Chronic) Diabetes (Chronic) Diabetic foot ulcer (Acute) Cellulitis of right ankle (Acute) No-show for appointment (Acute) Medical History Retinal disease, left Uses continuous positive airway pressure (CPAP) ventilation at home Hypotension Dehydration Below-knee amputation of left lower extremity Peripheral neuropathy Cervicalgia Headache, post-traumatic COVID-19 Phantom limb pain Tobacco use Chronic kidney disease, stage III (moderate) Inferior [place] 2006 Hx of pancreatitis Exposure to COVID-19 virus 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 CAD (coronary artery disease) multiple stents 2006 Diabetes mellitus GERD (gastroesophageal reflux disease) HTN (hypertension) Hypercholesterolemia DARIO (obstructive sleep apnea) Obesities, morbid Migraine Neuropathy Diabetic foot ulcer Poorly controlled diabetes mellitus Chest pain Surgical History Hx of cardiac catheterization Status post below knee amputation of left lower extremity History of lung biopsy History of heart artery stent S/P foot surgery Social History Smoking/Tobacco Use Status: Former Tobacco Use Quit Date: 05/30/24 Smoking risk assessment performed?: Yes Alcohol Intake: never Drug use: Never Substance use type: does not use Housing: house Do you feel safe at home: Yes Do you feel safe in your relationship?: Yes Exam Const General: cooperative, comfortable and no acute distress Nutritional Appearance: obese Orientation: alert, awake and oriented x3 HENMT Head: normal to inspection and normocephalic Resp Effort & Inspection: normal respiratory effort, able to speak in complete sentences and tachypneic Extrem Other: The foot is warm but has sluggish capillary refill. I have a difficult time palpating a dorsalis pedis pulse. There are 3 wounds present. The dorsal wound was covered by Mepilex silver dressing. This has a thickened eschar with some slight purulence around it for exudate. No surrounding erythema. The lateral based ankle wound has about 5 cm of dehiscence, opening approximately 2 cm, with gross purulent discharge. Palpation of the lateral soft tissues expresses purulence from this wound. There is no visible hardware nor bone. The plantar heel wound appears to be healed. I do not see any gross purulence nor opening of this area. The posterior heel wound is open approximately 4 to 5 mm with some fibrinous discharge and sloughing. Pictures are below of the posterior heel wound, lateral ankle wound, dorsal foot wound. Results Last Vital Signs Temp 36.6 C 08/31/24 07:53 Pulse 80 08/31/24 07:53 Resp 20 08/31/24 07:53 BP 120/83 08/31/24 07:53 Pulse Ox 99 08/31/24 07:53 Labs 08/30/24 23:11 08/31/24 10:00 Labs: Laboratory Results - last 24 hr 08/30/24 08/31/24 08/31/24 23:11 05:03 23:11 WBC 26.31 H* RBC 3.80 L Hgb 10.8 L Hct 32.6 L MCV 86 MCH 28.4 MCHC 33.1 RDW 14.6 H Plt Count 252 MPV 11.1 H Immature Gran % 0.0 Neutrophils % 87.0 Lymphocytes % 4.0 Monocytes % 9.0 Eosinophils % 0.0 Basophils % 0.0 Nucleated RBC % 0.0 Absolute Neutrophils 22.89 H Absolute Lymphocytes 1.05 L Absolute Monocytes 2.37 H Absolute Eosinophils 0.00 Absolute Basophils 0.00 RBC Morphology Normal ESR 83 H Sodium 133 L Potassium 4.4 Chloride 99 Carbon Dioxide 23.0 Anion Gap 11.0 BUN 66 H Creatinine 3.0 H Est GFR (CKD-EPI 2020) 22.77 Glucose 135 H Hemoglobin A1c 7.5 H Calcium 8.8 Total Bilirubin 0.94 AST 22 ALT 25 Alkaline Phosphatase 335 H C-Reactive Protein > 25.00 H Total Protein 6.9 Albumin 2.3 L 25-OH Vitamin D Total 23.5 L Add-On Test Request DONE Imaging Imaging Studies: X-ray of the right ankle shows soft tissue defect laterally. There is a tibial talocalcaneal nail in place. There is good alignment of the tibiotalar and subtalar joints. The distal medial lateral locking screw looks to be backing out. CT scan of the right ankle shows no tracking gas. The fusion sites appear to be in bony contact without any gross failure. The distal locking screw is backing out but the posterior to anterior screw in the calcaneus looks to be well- seated. There appears to be a fracture through the sustentaculum ar where the screw was.
--- NOTE | 2024-08-31 09:27 | PDOC.CMIN ---
Date of service: 08/31/24 Time of Service: 09:27 Care Management Initial Assmt Initial Assessment Reason for Hospitalization: infected ankle, r/o osteomyelitis Functional Status/Living Situation Patient Presentation: Ed was in the OR when CM met with him. He was admitted with an infected ankle and went to the OR for an irrigation and debridement. Ed has previously had surgery at [facility] (Orthopedic and Vascular) and efforts are being made to transfer him there for additional assessment and treatment. Town of Residence: [place], [place] Resides with: Spouse (Jewel) Significant Other/Family: Local Natural Supports: girlfriend Helio Garnica Employment Status: Disabled (Disabled for about 10 years.Previously was a national flatbed truck driver.) Instrumental Activities of Daily Living (ADLs): Independent Medications Medication Management: No Issues/Barriers identified Physical Functioning/Mobility Assistive Device: uses a cane and walker and has a prosthesis for his L BKA Advance Directives Advance Directives: Do you have an Advance Directive: Y 04/13/21 11:18 AD On File at [facility]: N 04/13/21 11:18 Date Asked 08/30/24 08/30/24 22:03 AD Date Reviewed COLST On File at [facility] COLST Date Scanned Code Status Resuscitation Status Full Code Portal Pt does not currently have a portal and education provided: No Insurance Coverage/Financial Issues Insurance: Medicare Medicaid Care Team Visit Care Team Role Provider Type Kalli Gamble MD Primary Care Provider [facility] STAFF PHYSICIAN Morenita Lrod MD Emergency Provider [facility] STAFF PHYSICIAN Torrey Ocasio MD Admit Provider [facility] STAFF PHYSICIAN Attending Provider Discharge Potential Discharge Needs: PCP F/U Appt and Surgical F/U Appt Anticipated Barriers to Discharge: Medical Status Patient/Family Education Needs: Review discharge instructions, discuss Ask Me Three Transportation: Other (to be determined by disposition) Plan: Anticipate Ed will be transferred to [facility] when a bed becomes available. He will follow up with their providers and plan of care and transport via EMS coordinated by the nursing compounding and finishing supervisor. CM will follow and continue to assess for discharge needs. Social Determinants of Health Screening Social Determinants of Health last assessed: 09/01/24 Will the Patient Participate in the Screening?: Yes Do you worry about having a steady place to live?: no Problems where you live: no known problems In the past 12 months, have you had to go without electric, gas, oil or water in your home?: no Have you or anyone in your house had to go without enough food to eat?: no Has lack of transportation kept you from medical appointments or from doing things needed for daily living?: yes Has anyone in your life made you feel unsafe or unsupported?: no How hard is it for you to pay for the very basics like food, housing, medical care, and heating? Would you say it is:: Not hard at all Do you want help finding or keeping work or a job?: I do not need or want help If for any reason you need help with day-to-day activities such as bathing, preparing meals, shopping, managing finances, etc., do you get the help you need?: I don?t need any help How often do you feel lonely or isolated from those around you?: Never Do you speak a language other than Portuguese at home?: No Does the patient want assistance with any of the above?: No Social Determinants of Health Comments(SDNH Details): normally doesnt have issues with appointment Health Related Social Needs Health related social needs: transportation insecurity (Z59.82) PFSH All Active Problems (Updated 09/01/24 @ 16:13 by Brooke Abdalla APRN) On deep vein thrombosis (DVT) prophylaxis (Acute) Surgical wound infection (Acute) CHF (congestive heart failure) (Chronic) Acute kidney injury superimposed on CKD (Acute) Deep vein thrombosis (DVT) prophylaxis declined (Acute) Severe sepsis (Acute) PVD (peripheral vascular disease) (Chronic) Diabetes (Chronic) Diabetic foot ulcer (Acute) Cellulitis of right ankle (Acute) No-show for appointment (Acute) Medical History Retinal disease, left Uses continuous positive airway pressure (CPAP) ventilation at home Hypotension Dehydration Below-knee amputation of left lower extremity Peripheral neuropathy Cervicalgia Headache, post-traumatic COVID-19 Phantom limb pain Tobacco use Chronic kidney disease, stage III (moderate) Inferior [place] 2006 Hx of pancreatitis Exposure to COVID-19 virus 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 CAD (coronary artery disease) multiple stents 2006 Diabetes mellitus GERD (gastroesophageal reflux disease) HTN (hypertension) Hypercholesterolemia DARIO (obstructive sleep apnea) Obesities, morbid Migraine Neuropathy Diabetic foot ulcer Poorly controlled diabetes mellitus Chest pain Surgical History Hx of cardiac catheterization Status post below knee amputation of left lower extremity History of lung biopsy History of heart artery stent S/P foot surgery Social History Smoking/Tobacco Use Status: Former Tobacco Use Quit Date: 05/30/24 Smoking risk assessment performed?: Yes Alcohol Intake: never Drug use: Never Substance use type: does not use Housing: house Do you feel safe at home: Yes Do you feel safe in your relationship?: Yes
--- NOTE | 2024-08-31 09:46 | NUR.NOTE ---
Nursing Note: Per discussion with Ortho this morning, continue with NS bag from the ED, then infuse LR @ 200ml/hr until surgery later this afternoon. Ok'd to give PO meds with sips. Gave apple juice as BS was 93. F/u BS was 98
[2024-08-31] MEDS: Lactated Ringers 1,000 ML 200 ML IV (10:05)
[2024-08-31 10:25] LABS: Anion Gap 9.5 mmol/L (3-11); BUN 62 mg/dL (7-18); CO2 22.5 mmol/L (21.0-32.0); CREATININE 2.9 mg/dL (0.70-1.30); Calcium 8.8 mg/dL (8.5-10.1); Chloride 102 mmol/L (98-107); Estimated GFR 23.72 (mL/min/1.73m2); Glucose 94 mg/dL (74-106); Potassium 4.1 mmol/L (3.5-5.1); Sodium 134 mmol/L (136-145)
--- NOTE | 2024-08-31 12:37 | W.PM.PROGNOT ---
Date of Service Date of service: 08/31/24 Time of Service: 12:37 Assessment and Plan Assessment and plan (1) Cellulitis of right ankle: Start date: 08/31/24 Status: Acute Assessment and plan: Again today consulted with [facility] and was still no bed available. Vascular consult initiated but vascular deferred to orthopedic at [facility] Consulted Dr. Pascual centeno from orthopedics at [facility]: Confirm that no MRI is needed as CT imaging was congruent with findings of osteomyelitis. No CTA runoff of the right lower extremity needed at this time. Recommends to call daily to inquire for bed availability. Patient to go to the OR this afternoon with Dr. Ocasio: Wound VAC to be discontinued upon transfer-apply damp gauze with Kerlex and TARAN if he goes. Blood cultures ordered Wound cultures pending Continue treating with IV Zosyn He does have hardware in his right ankle fracture status post repair. Long-term patient may be treated by [facility] with hyperbaric treatment and IV antibiotic therapy. Patient is at risk for right BKA already having left BKA. Call received from transfer center at [facility] a bit before 1700 with possibility for transfer later tonight after they discussed the case with the hospitalist. Dr. Ocasio was made aware of possible transfer. Bedside nurse Latrice Reaves RN and clinical nurse leader Anival Valle RN made aware of the need for the wound VAC to come off and damp gauze with Kerlix and TARAN to be applied prior to transfer which might occur after [address] Walters (2) Severe sepsis: Status: Acute Assessment and plan: Sepsis criteria met with WBC at 26 and respiratory rate at 21 with source of infection being the right ankle wound cellulitis In addition creatinine of 3.0 from a baseline at 1.7 that shows end-organ damage which qualifies the patient for severe sepsis And as above (3) Peripheral neuropathy: Assessment and plan: Ongoing outpatient medical therapy and pain management. (4) Tobacco use: Assessment and plan: The patient stopped smoking 2 to 3 months ago?no acute signs of COPD exacerbation (5) HTN (hypertension): Assessment and plan: Continue outpatient medical therapy and adjusting as needed. (6) CAD (coronary artery disease): Assessment and plan: Will continue outpatient therapy with Plavix and ASA after surgery. There was no evidence of active ischemia or symptoms at the time of presentation. (7) DARIO (obstructive sleep apnea): Assessment and plan: CPAP to be brought in and used with home settings (8) GERD (gastroesophageal reflux disease): Assessment and plan: Ongoing therapy with Protonix. (9) Acute kidney injury superimposed on CKD: Status: Acute Assessment and plan: CR at 3.0 from baseline 1.7 IV fluid resuscitation ongoing initially on crystalloid but later changed to D5 LR at 75 cc an hour due to increase chest congestion as well as blood sugars trending down around 89-90 BMP in the morning (10) CHF (congestive heart failure): Status: Chronic Assessment and plan: Last LVEF from 2019 was 45 to 50% the patient seems to have had a recent echocardiogram at [facility] in 2023 report not available Will still proceed cautiously with IV fluid (11) Diabetes: Status: Chronic Assessment and plan: Continue glucose before meals and at bedtime with SSI coverage IVF now D5 LR at 75 cc an hour N.p.o. for surgery and resume heart healthy diabetic diet status post surgery (12) Deep vein thrombosis (DVT) prophylaxis declined: Status: Acute Assessment and plan: Mechanical DVT prophylaxis ordered Discussed with Dr. Carmen Subjective Subjective Patient reports: denies voiding w/o difficulty, nausea, vomiting, shortness of breath or fever Interval history since last seen: NPO awaiting Sx procedure to left Exam Narrative Exam Narrative: Constitutional The patient is sleepy and arousable, breath sound are coarse but the patient has bilateral airflow The patient is without acute distress but appears tired Neuro:alert and oriented x 4, appears nonfocal Chest:Chest is symmetrical and normal appearance Resp: Breath sound mostly to lower lobes Cardio: regular rhythm, S1, S2, no murmur, capillary refill<3 sec., bilateral radial and dorsalis pedis pulses are positive, palpable GI: Abdomen is not distended, soft and non tender, bowel sounds are present Integumentary: Dressing to right lower extremity dry clean and intact Psych: RASS 0, congruent mood and normal affect. Objective Last Vital Signs Temp 36.9 C 08/31/24 11:02 Pulse 78 08/31/24 11:02 Resp 20 08/31/24 11:02 BP 106/90 08/31/24 11:02 Pulse Ox 91 L 08/31/24 11:02 Laboratory Results - last 24 hr 08/30/24 08/31/2425 23:11 05:03 10:00 WBC 26.31 H* RBC 3.80 L Hgb 10.8 L Hct 32.6 L MCV 86 MCH 28.4 MCHC 33.1 RDW 14.6 H Plt Count 252 MPV 11.1 H Immature Gran % 0.0 Neutrophils % 87.0 Lymphocytes % 4.0 Monocytes % 9.0 Eosinophils % 0.0 Basophils % 0.0 Nucleated RBC % 0.0 Absolute Neutrophils 22.89 H Absolute Lymphocytes 1.05 L Absolute Monocytes 2.37 H Absolute Eosinophils 0.00 Absolute Basophils 0.00 RBC Morphology Normal ESR 83 H Sodium 133 L 134 L Potassium 4.4 4.1 Chloride 99 102 Carbon Dioxide 23.0 22.5 Anion Gap 11.0 9.5 BUN 66 H 62 H Creatinine 3.0 H 2.9 H Est GFR (CKD-EPI 2020) 22.77 23.72 Glucose 135 H 94 Hemoglobin A1c Calcium 8.8 8.8 Total Bilirubin 0.94 AST 22 ALT 25 Alkaline Phosphatase 335 H C-Reactive Protein > 25.00 H Total Protein 6.9 Albumin 2.3 L 25-OH Vitamin D Total 23.5 L Add-On Test Request DONE 08/31/24 23:11 WBC RBC Hgb Hct MCV MCH MCHC RDW Plt Count MPV Immature Gran % Neutrophils % Lymphocytes % Monocytes % Eosinophils % Basophils % Nucleated RBC % Absolute Neutrophils Absolute Lymphocytes Absolute Monocytes Absolute Eosinophils Absolute Basophils RBC Morphology ESR Sodium Potassium Chloride Carbon Dioxide Anion Gap BUN Creatinine Est GFR (CKD-EPI 2020) Glucose Hemoglobin A1c 7.5 H Calcium Total Bilirubin AST ALT Alkaline Phosphatase C-Reactive Protein Total Protein Albumin 25-OH Vitamin D Total Add-On Test Request Time Spent with Patient Time Spent with Patient: >50 minutes Time was spent: preparing to see the patient(eg.review tests), obtaining and/or reviewing separately otained hiistory, ordering medications,tests, procedures, referring, communicating with other health foster care social worker, indepentently interpreting results, counseling the patient and care coordination
[2024-08-31] MEDS: DEXTROSE 5%-LACTATED RINGERS 1,000 ML 75 ML IV (15:20)
--- NOTE | 2024-08-31 16:51 | NUR.NOTE ---
Nursing Note: Pt taken down to OR at 1515, returned at 1640 with wound vac on right foot
--- NOTE | 2024-08-31 16:55 | W.ANESPOSTOP ---
Postoperative Evaluation Date, Time and Location Date Performed: 08/31/24 Time Performed: 16:55 Patient Location: Med/Surg Vital Signs Most Recent Imported Vital Signs: Most Recent Vital Signs Temp Pulse Resp BP Pulse Ox 36.7 C 81 18 120/66 92 08/31/24 16:44 08/31/24 16:44 08/31/24 16:44 08/31/24 16:44 08/31/24 16:44 Pain Score Most Recent Pain Score: Most Recent Pain Score Pain Level [Right Ankle] 8 08/30/24 21:55 Pain Level 7 08/31/24 15:06 Assessment Mental Status: Awake (Alert & Oriented to Patient Baseline) Airway and Respiratory Function: Patent airway with normal (patient baseline) respiratory exam Cardiovascular Function: Hemodynamically Stable Hydration Status: Adequately Hydrated Nausea & Vomiting: No Nausea or Vomiting Pain: Pt. Denies Any Pain Peripheral Nerve Block: Patient did not receive a nerve block Postoperative Comments:: To med surg, VSS
--- NOTE | 2024-08-31 17:04 | W.PM.OP ---
Operative Note Operative Note PRE-OP DIAGNOSIS: Infected right ankle wounds, chronic right foot wound POST-OP DIAGNOSIS: same PROCEDURE: Irrigation and debridement of the lateral ankle wound, posterior hindfoot wound and dorsal foot wound Wound VAC application SURGEON: Torrey Ocasio RELIEF DRILLER: Gladys Amaya ANESTHESIA TYPE: MAC Refer to Anesthesia Record ESTIMATED BLOOD LOSS: 25 PATHOLOGY: other (2 sets of aerobic culture and IntraOp culture sent, 1 from the lateral wound and 1 from the posterior wound) TOURNIQUET TIME: 0 COMPLICATIONS: None Patient was transported to: floor Patient's condition: stable Indications: Ed is a 64-year-old with type 1 diabetes and chronic diabetic neuropathy in addition to other medical comorbidities. He suffered an ankle fracture with no specific trauma. He failed nonoperative options and after revascularization of the right leg he underwent a primary tibiotalar and subtalar fusion with a nail. He was discharged to home but had some chronic wounds which have worsened over time and present to the emergency department with copious purulent drainage from his wounds and overall ill feeling. Transfer to [facility] was initiated attempted but there were no beds and therefore I admitted for antibiotics and for surgical treatment. I reviewed the details of surgical treatment. I discussed risk to include bleeding, continued infection, need for repeat procedures. Despite these risk, he elected to proceed. Findings: There is gross purulence from the posterior wound and the lateral wound. There was loose bone debris within the lateral wound and the distal end of the fibula was quite soft. Purulence tracked the soft tissues adjacent to the peroneal tendon but did not extend up the leg. The dorsal wound was chronic in nature did not show any signs of active infection. Procedure Description: Ed was greeted in the preoperative holding area. His identity was confirmed the correct size identified and marked. The consent was reviewed the patient and signed. He is not taken back to the operating room. He is placed in the supine position on the operating room table. The right leg was placed onto a bump for exposure of the entire foot. Piperacillin/tazobactam was used as prophylactic anti-as it timed with his regular schedule upstairs. A timeout is performed for safe surgery. The right leg was then prepped with Betadine and draped in standard fashion. Culture was taken from the lateral wound as well as the posterior hindfoot wound. Each was sent for aerobic and anaerobic cultures. There is gross purulence throughout these 2 wounds. Attention was turned here first. The lateral wound was inspected and showed copious amount of purulent material which traveled adjacent to the peroneal tendons approxi-2 to 3 cm proximal to the opening but did not seem to track up the peroneal tendon sheath. There is loose bone debris in this area. This bone was debrided sharply although it mostly just fell out. The tissue some cells had some attached purulence and some granulation appearance from some level chronicity of the infection. The posterior wound also had some purulence and tracked into the calcaneus adjacent to the screw. X-ray was utilized to show that the curette was running parallel to the screw inside the calcaneus but not in the screw. I then used normal saline with gravity flow to irrigate the lateral posterior wounds. 3 L of normal saline were utilized for these. Sharp debridement then performed on the lateral wound primarily. A curette was also used to debride all the soft tissues posteriorly and laterally. The end of the fibula was quite soft and this was debrided back with a curette until there was solid bone palpated. Any loose bone debris was also removed. There was a screw noted to be proud on the previous x-ray and CT scan. This was evaluated. The screwdrivers placed on the screw and the screw pushed right back in. There not seem to be any ability to purchase with any tightening of the screw and therefore this was left as it has been in an advanced position. These 2 wounds were once again irrigated with remaining fluid. The dorsal wound which. More chronic in nature had a thick and eschar previous eschar was removed sharply. A debridement is performed of the deeper tissues which had some excellent bleeding. There is no signs of purulence. There is no expressible fluid. There is no surrounding erythema. Brief irrigation was performed of this wound. A wound VAC was then placed onto the lateral wound. A white sponge was placed deep into the wound since there was peroneal tendon and bone. A black sponge was placed on top of this. This was placed on 120 mm of intermittent suction. The posterior wound was quite small and therefore this was covered with a standard foam border type dressing. A similar type dressing was used for the dorsal wound on the top of some Xeroform. Ed tolerated procedure well. Awakened from his sedation. He was able to transfer back to the floor in stable condition. We will continue to follow the culture results. He will continue the broad-spectrum antibiotics. I will continue to be in communication with [facility] and potential transfer. He is quite insistent on trying to save this leg but I do believe this will Corail multiple of the procedures and worry about the status of his bone adjacent to the nail and thus the fusion. Date of Procedure: 08/31/24
--- NOTE | 2024-08-31 17:34 | DI.RAD_ITS ---
Exam(s) XR ANKLE RT 2V EXAM: XR ANKLE RT 2V CLINICAL HISTORY: hardware TECHNIQUE: 2D and realtime digital imaging was performed. CONTRAST MATERIAL: Refer to procedure report. COMPARISON: CR,XR XR ANKLE RT COMPLETE from 08/30/2024 FINDINGS: Fluoroscopy was provided for Dr. Ocasio during the performance of a speak hardware removal. Anju gil refer to the procedure report for complete details. Ka,r=0.25 mGy IMPRESSION: RADIATION DOSE DELIVERED: 0.0 0.0 0
[2024-08-31] MEDS: Amitriptyline 50 MG TAB 100 MG PO (20:48)
[2024-08-31] MEDS: Linezolid 600 MG TAB PO (21:50)
[2024-08-31] MEDS: oxyCODONE 5 MG TAB PO (23:36)
[2024-08-31] MEDS: Normal Saline Flush 10 ML SYR (23:43)
[2024-09-01] VITALS (7 sets, daily range): BP systolic 91–118; BP diastolic 56–79; PULSE 69–76; RESP 16–20; TEMP 36.3–36.6; O2SAT 92–97
[2024-09-01] MEDS: PIPERACILLIN/TAZO 3.375 GM in Normal Saline 50 ML IVPB ×2 (05:33→10:20)
[2024-09-01] MEDS: Normal Saline Flush 10 ML SYR ×2 (05:36→20:41)
[2024-09-01 07:05] LABS: HCT 30.9 % (40.0-50.0); HGB 9.8 g/dL (13.5-17.5); MCH 28.2 pg (27.0-33.0); MCHC 31.7 % (32.0-36.0); MCV 89 fL (80-95); MPV 11.2 fL (8.0-11.0); Platelet Count 250 10^3/uL (130-400); RBC 3.47 10^6/uL (4.36-5.78); RDW 14.6 % (11.8-14.1); RDW-SD 47.7 fL; WBC 22.52 10^3/uL (4.4-10.8)
[2024-09-01 07:19] LABS: Anion Gap 8.1 mmol/L (3-11); BUN 64 mg/dL (7-18); CO2 23.9 mmol/L (21.0-32.0); CREATININE 3.1 mg/dL (0.70-1.30); Calcium 8.9 mg/dL (8.5-10.1); Chloride 101 mmol/L (98-107); Estimated GFR 21.89 (mL/min/1.73m2); Glucose 91 mg/dL (74-106); Potassium 4.2 mmol/L (3.5-5.1); Sodium 133 mmol/L (136-145)
--- NOTE | 2024-09-01 07:49 | PGE_ITS ---
Date of Service Date of service: 09/01/24 Time of Service: 07:35 Assessment and Plan Assessment and plan (1) Surgical wound infection: Status: Acute Assessment and plan: Ed is a 64-year-old male who has a surgical wound infection about the right ankle from a complex fracture with surgery. Aggressive debridement and irrigation was performed yesterday in the operating room. Now with a wound VAC over the lateral ankle wound and foam border dressings about the dorsum and the posterior heel. These are clean and dry this morning. The area of erythema around the leg seems to be improving as well. Continue with the wound VAC at 120 mmHg intermittent suction. Continue with the border dressings to be changed every other day. Will likely perform wound VAC change at bedside tomorrow. Still awaiting transfer to [facility] for tertiary assessment and treatment. Currently on broad-spectrum coverage with linezolid and Zosyn. (2) Acute kidney injury superimposed on CKD: Status: Acute Assessment and plan: Appreciate hospitalist consult. Creatinine still continues to run elevated at 3.1. Will perform another bolus today and consider reinstitution of maintenance fluids. (3) Diabetes: Status: Chronic Assessment and plan: Appreciate hospitalist consult. Okay to monitor blood sugars and bolus appropriate with his pump with before every meal and at bedtime or every 6 hour nursing checks of blood sugars. Subjective Subjective Interval history since last seen: Ed reports no significant issues. He denies any fevers or chills. He denies any significant pain. He has had minimal urine output, only about 300 cc since surgery. His blood pressures have been relatively soft although stable. Exam Narrative Exam Narrative: Sitting up in the bed. No acute distress. Alert and orient x 3. Evaluation of the right lower extremity shows foam border dressings over the dorsum of the foot and the posterior heel. There also has a wound VAC in place with good suction. There is minimal sanguinous output within the canister. Minimal erythema seen about the right leg where there was some extending up to the mid calf and leg yesterday. Objective Last Vital Signs Temp 36.5 C 09/01/24 07:31 Pulse 72 09/01/24 07:31 Resp 19 09/01/24 07:31 BP 99/65 L 09/01/24 07:31 Pulse Ox 95 09/01/24 07:31 Laboratory Results - last 24 hr 08/30/24 08/31/24 08/31/24 23:11 10:00 23:11 WBC RBC Hgb Hct MCV MCH MCHC RDW Plt Count MPV Sodium 134 L Potassium 4.1 Chloride 102 Carbon Dioxide 22.5 Anion Gap 9.5 BUN 62 H Creatinine 2.9 H Est GFR (CKD-EPI 2020) 23.72 Glucose 94 Hemoglobin A1c 7.5 H Calcium 8.8 25-OH Vitamin D Total 23.5 L 09/01/24 06:30 WBC 22.52 H RBC 3.47 L Hgb 9.8 L Hct 30.9 L MCV 89 MCH 28.2 MCHC 31.7 L RDW 14.6 H Plt Count 250 MPV 11.2 H Sodium 133 L Potassium 4.2 Chloride 101 Carbon Dioxide 23.9 Anion Gap 8.1 BUN 64 H Creatinine 3.1 H Est GFR (CKD-EPI 2020) 21.89 Glucose 91 Hemoglobin A1c Calcium 8.9 25-OH Vitamin D Total Time Spent with Patient Time Spent with Patient: 25-34 minutes Time was spent: preparing to see the patient(eg.review tests), ordering medications,tests, procedures, indepentently interpreting results, counseling the patient and care coordination
[2024-09-01] MEDS: Acetaminophen 500 MG TAB 1000 MG PO ×3 (08:04→20:39)
[2024-09-01] MEDS: Metoprolol CR 100 MG TABCR PO ×2 (08:04→20:44)
[2024-09-01] MEDS: Linezolid 600 MG TAB PO ×2 (08:04→20:40)
[2024-09-01] MEDS: DULoxetine 30 MG CAP 60 MG PO (08:04)
[2024-09-01] MEDS: Ranolazine 500 MG TABCR PO ×2 (08:04→20:40)
[2024-09-01] MEDS: Pantoprazole 40 MG TABCR PO ×2 (08:04→20:40)
[2024-09-01] MEDS: Aspirin E.C. 81 MG TABEC PO (08:04)
[2024-09-01] MEDS: Cholecalciferol (Vitamin D3) 1,000 UNIT TAB 1000 UNITS PO (08:05)
[2024-09-01] MEDS: Rosuvastatin 20 MG TAB 40 MG PO (08:05)
[2024-09-01] MEDS: Clopidogrel 75 MG TAB PO (08:05)
[2024-09-01] MEDS: Isosorbide Mononitrate 60 MG TABCR PO (08:05)
[2024-09-01] MEDS: Famotidine 20 MG TAB PO (08:05)
[2024-09-01] MEDS: Lactated Ringers 1,000 ML 1000 ML IV (08:15)
--- NOTE | 2024-09-01 09:01 | PDOC.CMPRO ---
Date of service: 09/01/24 Time of Service: 09:01 Care Management Progress Note Progress Note Text Progress Note Text: Ed was sitting up in bed when CM met with him. He was pleasant in interaction and engaged well with CM, however he kept drifting off to sleep during the conversation. Ed stated that his pain is about an 8/10. he did add that the pain medicine does help. Ed had surgery on his right ankle yesterday and has a wound vac in place now. He is on bedrest with commode privileges. Efforts to transfer him to [facility] have been unsuccessful. The providers that have worked with him at want him there but [facility] has no beds. Discharge Potential Discharge Needs: PCP F/U Appt and Surgical F/U Appt Anticipated Barriers to Discharge: Medical Status Patient/Family Education Needs: Review discharge instructions, discuss Ask Me Three Transportation: Private vehicle Plan: Efforts have been made to transfer Ed to [facility] for assessment and treatment. He went to the OR yesterday for aggressive irrigation and debridement of his ankle wound and is currently receiving broad spectrum antibiotics. When a bed becomes available he will transport via EMS coordinated by the nursing brineyard supervisor. CM will follow and continue to support discharge planning efforts. Social Determinants of Health Screening Social Determinants of Health last assessed: 09/01/24 Will the Patient Participate in the Screening?: Yes Do you worry about having a steady place to live?: no Problems where you live: no known problems In the past 12 months, have you had to go without electric, gas, oil or water in your home?: no Have you or anyone in your house had to go without enough food to eat?: no Has lack of transportation kept you from medical appointments or from doing things needed for daily living?: yes Has anyone in your life made you feel unsafe or unsupported?: no How hard is it for you to pay for the very basics like food, housing, medical care, and heating? Would you say it is:: Not hard at all Do you want help finding or keeping work or a job?: I do not need or want help If for any reason you need help with day-to-day activities such as bathing, preparing meals, shopping, managing finances, etc., do you get the help you need?: I don?t need any help How often do you feel lonely or isolated from those around you?: Never Do you speak a language other than Slovak at home?: No Does the patient want assistance with any of the above?: No Social Determinants of Health Comments(SDOH Details): normally doesnt have issues with appointment Health Related Social Needs Health related social needs: transportation insecurity (Z59.82)
--- NOTE | 2024-09-01 09:39 | W.PM.PROGNOT ---
Date of Service Date of service: 09/01/24 Time of Service: 09:39 Assessment and Plan Assessment and plan (1) Cellulitis of right ankle: Start date: 08/31/24 Status: Acute Assessment and plan: Again today consulted with [facility] and was still no bed available. Vascular consult initiated but vascular deferred to orthopedic at [facility] Consulted Dr. Pascual centeno from orthopedics at [facility]: Confirm that no MRI is needed as CT imaging was congruent with findings of osteomyelitis. No CTA runoff of the right lower extremity needed at this time. Recommends to call daily to inquire for bed availability. Patient to go to the OR this afternoon with Dr. Ocasio: Wound VAC to be discontinued upon transfer-apply damp gauze with Kerlex and TARAN if he goes. Zyvox was added to initial treatment with Zosyn, as the patient creatinine clearance dropped from 33 to 30 -30. He does have hardware in his right ankle fracture status post repair. Blood cultures still pending Wound cultures showing GPC: Zosyn stopped- will continue Zyvox until further result on C&S Long-term patient may be treated by [facility] with hyperbaric treatment and IV antibiotic therapy. Patient is at risk for right BKA already having left BKA. Dorsal right foot ulcer: wound consult placed Call received on 08/31/24 PM from transfer center at [facility] possibility for transfer. Dr. Ocasio was made aware at the time. S/P discussion Dr. Marino late on 08/31/2024 the transfer was most likely for . Plan to update hospitalist of any worsening of the patient's clinical condition established. Suggestion to reach back daily to [facility] for bed availability: No bed on 09/01/24 PM (2) Severe sepsis: Status: Acute Assessment and plan: Sepsis criteria met with WBC at 26 and respiratory rate at 21 with source of infection being the right ankle wound cellulitis In addition creatinine on admission was 3.0 from a baseline at 1.7 that shows end-organ damage which qualifies the patient for severe sepsis And as above (3) Acute kidney injury superimposed on CKD: Status: Acute Assessment and plan: CR at 3.0 from baseline 1.7; now 3.1 despite IV fluid resuscitation This morning additional 1 L bolus bolus was ordered which will bring the patient's load to 30 mL/kg will carefully monitor for fluid overload Yesterday IV fluid sedation was tapered down due to LVEF of 40 in June 2024 as well as finding of chest congestion and crackles to lower lung mclaughlin l BMP in the morning Consider consulting nephrology if creatinine clearance dropping; it was 33 yesterday and 30 today Going monitoring for nephrotoxic drugs; duloxetine dosing decreased due to risk of serotonin syndrome with Zyvox and decreased creatinine clearance today. Will continue to monitor and (4) Peripheral neuropathy: Assessment and plan: Ongoing outpatient medical therapy and pain management. (5) Tobacco use: Assessment and plan: The patient stopped smoking 2 to 3 months ago?no acute signs of COPD exacerbation (6) HTN (hypertension): Assessment and plan: Continue outpatient medical therapy and adjusting as needed. (7) CAD (coronary artery disease): Assessment and plan: Will continue outpatient therapy with Plavix and ASA after surgery. There was no evidence of active ischemia or symptoms at the time of presentation. (8) DARIO (obstructive sleep apnea): Assessment and plan: CPAP to be brought in and used with home settings (9) GERD (gastroesophageal reflux disease): Assessment and plan: Continue Protonix. (10) CHF (congestive heart failure): Status: Chronic Assessment and plan: s/p discussion with Dr. Marino -Last LVEF from 2023 at [facility] was 40 % Will still proceed cautiously with IV fluid; today at around 30 ml/kg total IVF resuscitation (11) Diabetes: Status: Chronic Assessment and plan: Continue glucose before meals and at bedtime with SSI coverage D/c insulin pump while inpatient Continue diabetic diet (12) On deep vein thrombosis (DVT) prophylaxis: Status: Acute Assessment and plan: Mechanical DVT prophylaxis initially ordered will initiate LMWH Discussed with Dr. Carmen Exam Narrative Exam Narrative: Constitutional The patient is sleepy and arousable, breath sound are coarse but the patient has bilateral airflow The patient is without acute distress but appears tired Neuro:alert and oriented x 4, appears nonfocal Chest:Chest is symmetrical and normal appearance Resp: Fine bi-basilar crackles Cardio: regular rhythm, S1, S2, no murmur, positive proximal right pedis artery -was faint with doppler near the ankle, not heard distally on foot GI: Abdomen is not distended, soft and non tender, bowel sounds are present Integumentary: Wound vac to right ext malleolar surgical site/ ankle , dorsal foot ulcer with mepilex - Psych: RASS 0, congruent mood and normal affect. Objective Last Vital Signs Temp 36.5 C 09/01/24 07:31 Pulse 72 09/01/24 07:31 Resp 19 09/01/24 07:31 BP 99/65 L 09/01/24 07:31 Pulse Ox 95 09/01/24 07:31 Laboratory Results - last 24 hr 08/31/24 09/01/24 10:00 06:30 WBC 22.52 H RBC 3.47 L Hgb 9.8 L Hct 30.9 L MCV 89 MCH 28.2 MCHC 31.7 L RDW 14.6 H Plt Count 250 MPV 11.2 H Sodium 134 L 133 L Potassium 4.1 4.2 Chloride 102 101 Carbon Dioxide 22.5 23.9 Anion Gap 9.5 8.1 BUN 62 H 64 H Creatinine 2.9 H 3.1 H Est GFR (CKD-EPI 2020) 23.72 21.89 Glucose 94 91 Calcium 8.8 8.9 Time Spent with Patient Time Spent with Patient: >50 minutes Time was spent: preparing to see the patient(eg.review tests), obtaining and/or reviewing separately otained hiistory, ordering medications,tests, procedures, referring, communicating with other health medical care evaluation specialist, indepentently interpreting results, counseling the patient and care coordination
[2024-09-01 10:35] LABS: Magnesium 2.1 mg/dL (1.8-2.4)
[2024-09-01] MEDS: oxyCODONE 5 MG TAB PO (11:29)
[2024-09-01] MEDS: Insulin Aspart 300 UNITS/3 ML PEN SC ×3 (12:08→21:09)
[2024-09-01] MEDS: Enoxaparin 40 MG/0.4 ML SYR SC (18:39)
[2024-09-01] MEDS: Amitriptyline 50 MG TAB 100 MG PO (20:40)
[2024-09-02 02:21] VITALS: BP 100/70; PULSE 71; RESP 20; TEMP 36.6; O2SAT 95
[2024-09-02 07:23] VITALS: BP 137/80; PULSE 71; RESP 18; TEMP 36.6; O2SAT 97
[2024-09-02 08:10] LABS: Abs Immature Grans 0.38 10^3/uL (0.0-0.06); Absolute Basophil Count 0.09 10^3/uL (0.0-0.2); Absolute Monocyte Count 1.06 10^3/uL (0.1-0.8); Absolute Neutrophil Count 14.09 10^3/uL (1.2-6.7); Basophils % 0.5 %; Eosinophils % 3.8 %; HCT 32.5 % (40.0-50.0); HGB 10.3 g/dL (13.5-17.5); Immature Grans % 2.1 %; Lymphocytes % 11.8 %; MCH 28.3 pg (27.0-33.0); MCHC 31.7 % (32.0-36.0); MCV 89 fL (80-95); MPV 11.4 fL (8.0-11.0); Monocytes % 5.7 %; Neutrophils % 76.1 %; Nucleated RBC 0.1 % (0.0-0.3); Platelet Count 261 10^3/uL (130-400); RBC 3.64 10^6/uL (4.36-5.78); RDW 14.9 % (11.8-14.1); RDW-SD 48.6 fL; WBC 18.51 10^3/uL (4.4-10.8)
[2024-09-02 08:18] LABS: Absolute Lymphocyte Count 2.18 10^3/uL (1.2-3.4)
[2024-09-02 08:20] LABS: Anion Gap 8.5 mmol/L (3-11); BUN 70 mg/dL (7-18); C-Reactive Protein 23.06 mg/dL (<or=0.5); CO2 23.5 mmol/L (21.0-32.0); Chloride 100 mmol/L (98-107); Estimated GFR 14.78 (mL/min/1.73m2); Glucose 192 mg/dL (74-106); Potassium 5.2 mmol/L (3.5-5.1); Sodium 132 mmol/L (136-145)
[2024-09-02] MEDS: Cholecalciferol (Vitamin D3) 1,000 UNIT TAB 1000 UNITS PO (08:32)
[2024-09-02] MEDS: Metoprolol CR 100 MG TABCR PO ×2 (08:32→19:34)
[2024-09-02] MEDS: Clopidogrel 75 MG TAB PO (08:32)
[2024-09-02] MEDS: Acetaminophen 500 MG TAB 1000 MG PO ×3 (08:32→19:33)
[2024-09-02] MEDS: Rosuvastatin 20 MG TAB 40 MG PO (08:32)
[2024-09-02] MEDS: Famotidine 20 MG TAB PO (08:32)
[2024-09-02] MEDS: Isosorbide Mononitrate 60 MG TABCR PO (08:32)
[2024-09-02] MEDS: Ranolazine 500 MG TABCR PO (08:32)
[2024-09-02] MEDS: Aspirin E.C. 81 MG TABEC PO (08:32)
[2024-09-02] MEDS: Pantoprazole 40 MG TABCR PO ×2 (08:33→19:34)
[2024-09-02] MEDS: Linezolid 600 MG TAB PO ×2 (08:33→19:34)
[2024-09-02] MEDS: Insulin Aspart 300 UNITS/3 ML PEN SC ×3 (08:33→17:03)
[2024-09-02 08:36] LABS: CREATININE 4.3 mg/dL (0.70-1.30)
[2024-09-02] MEDS: DULoxetine 30 MG CAP PO (08:36)
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
--- NOTE | 2024-09-02 09:21 | PGE_ITS ---
Date of Service Date of service: 09/02/24 Time of Service: 09:21 Assessment and Plan Assessment and plan (1) Cellulitis of right ankle: Start date: 08/31/24 Status: Acute Assessment and plan: Again today consulted with [facility] and was still no bed available. Vascular consult initiated but vascular deferred to orthopedic at [facility] [place]. Pascual centeno from orthopedics at [facility]: Confirm that no MRI is needed as CT imaging was congruent with findings of osteomyelitis. No CTA runoff of the right lower extremity needed at this time. Recommends to call daily to inquire for bed availability. Patient to go to the OR this afternoon with Dr. Ocasio: Wound VAC to be discontinued upon transfer-apply damp gauze with Kerlex and TARAN if he goes. Zyvox was added to initial treatment with Zosyn, as the patient creatinine clearance dropped from 33 to 30 -30. He does have hardware in his right ankle fracture status post repair. Blood cultures negative X 24 hours Wound cultures showing GPC: will continue Zyvox until further result on C&S Long-term patient may be treated by [facility] with hyperbaric treatment and IV antibiotic therapy. Dorsal right foot ulcer: wound consult pending - but accepted and bed obtained from [facility] pending transportation Call received on 08/31/24 PM from transfer center at [facility] possibility for transfer. Dr. Ocasio was made aware at the time. S/P discussion Dr. Marino late on 08/31/2024 the transfer was most likely for . Discussion with Dr. Marino today regarding worsening BRAYAN with creatinine at 4.3 and down trend sodium -recommended urine sodium which is at 27 Informal POCUS patient did not show any B-lines and IVC appeared nonplethoric this HS - NS 250 cc ordered over 2 hours (2) Severe sepsis: Status: Acute Assessment and plan: On admission: Sepsis criteria were with WBC at 26 and respiratory rate at 21 with source of infection being the right ankle wound cellulitis In addition creatinine on admission was 3.0 from a baseline at 1.7 that shows end-organ damage which qualifies the patient for severe sepsis And as above (3) Acute kidney injury superimposed on CKD: Status: Acute Assessment and plan: On admission CR at 3.0 from baseline 1.7; gradually went from 3.1 to 4.3 despite IV fluid resuscitation 30 mL/kg of IV hydration completed we will administer small bolus of normal saline 250cc with careful monitoring for fluid overload LVEF of 40 in June 2024 Serial BMP and in the morning Consider consulting nephrology if no improvement on 09/03/2024 and the patient is still at NVR H Discussion with hospitalist at [facility] agrees with current management to check for IVC collapse as well as sodium and urine to determine course of action Nephrotoxic drugs adjusted as per pharmacy consult early this a.m. Cr remained at 4.3 with improving K at 5.0- NS 250 cc over 2 hours and BMP at 21:00 Na at 130 now and will trend- (4) Peripheral neuropathy: Assessment and plan: Continue current regiment with outpatient medical therapy and pain management. (5) Tobacco use: Assessment and plan: History of smoking but the patient stopped smoking 2 to 3 months ago?no acute signs of COPD exacerbation (6) HTN (hypertension): Assessment and plan: Continue outpatient medical therapy and adjusting as needed. (7) CAD (coronary artery disease): Assessment and plan: Continue Plavix and ASA (8) DARIO (obstructive sleep apnea): Assessment and plan: Home CPAP settings (9) GERD (gastroesophageal reflux disease): Assessment and plan: Continue Protonix. (10) CHF (congestive heart failure): Status: Chronic Assessment and plan: s/p discussion with Dr. Marino -Last LVEF from 2023 at [facility] was 40 % Will still proceed cautiously with IV fluid; today at around 30 ml/kg total IVF resuscitation Follow IV hydration versus diuretic based on plethoric versus nonpleuritic IVC, urine sodium and serum sodium as well as clinical sign of fluid overload (11) Diabetes: Status: Chronic Assessment and plan: Ongoing glucose before meals and at bedtime with SSI coverage D/c insulin pump while inpatient Continue diabetic diet Have to consider water restriction if sodium drop to less than 130 (12) Hyperkalemia: Status: Acute Assessment and plan: In the setting of worsening BRAYAN on CKD K down to 5.0 s/p lokelma (13) On deep vein thrombosis (DVT) prophylaxis: Status: Acute Assessment and plan: Mechanical DVT prophylaxis initially ordered will initiate LMWH Discussed with Dr. Carmen Subjective Subjective Patient reports: feels better, tolerating liquids well, tolerating a regular diet, voiding w/o difficulty and bowel movement; denies diarrhea, nausea, vomiting, shortness of breath or fever Exam Narrative Exam Narrative: Constitutional The patient is sleepy and arousable, breath sound are coarse but the patient has bilateral airflow The patient is without acute distress but appears tired Neuro:alert and oriented x 4, appears nonfocal Chest:Chest is symmetrical and normal appearance Resp: Fine bi-basilar crackles Cardio: regular rhythm, S1, S2, no murmur, positive proximal right pedis artery -was faint with doppler near the ankle, not heard distally on foot GI: Abdomen is not distended, soft and non tender, bowel sounds are present Integumentary: Wound vac to right ext malleolar surgical site/ ankle , dorsal foot ulcer with mepilex - Psych: RASS 0, congruent mood and normal affect. Objective Last Vital Signs Temp 36.6 C 09/02/24 07:23 Pulse 71 09/02/24 07:23 Resp 18 09/02/24 07:23 BP 137/80 09/02/24 07:23 Pulse Ox 97 09/02/24 07:23 Laboratory Results - last 24 hr 09/01/24 09/02/24 06:30 07:58 WBC 18.51 H RBC 3.64 L Hgb 10.3 L Hct 32.5 L MCV 89 MCH 28.3 MCHC 31.7 L RDW 14.9 H Plt Count 261 MPV 11.4 H Immature Gran % 2.1 Neutrophils % 76.1 Lymphocytes % 11.8 Monocytes % 5.7 Eosinophils % 3.8 Basophils % 0.5 Nucleated RBC % 0.1 Absolute Neutrophils 14.09 H Absolute Lymphocytes 2.18 Absolute Monocytes 1.06 H Absolute Eosinophils 0.70 Absolute Basophils 0.09 Sodium 132 L Potassium 5.2 H D Chloride 100 Carbon Dioxide 23.5 Anion Gap 8.5 BUN 70 H Creatinine 4.3 H* D Est GFR (CKD-EPI 2020) 14.78 Glucose 192 H Calcium 9.0 Magnesium 2.1 C-Reactive Protein 23.06 H Time Spent with Patient Time Spent with Patient: >50 minutes Time was spent: preparing to see the patient(eg.review tests), obtaining and/or reviewing separately otained hiistory, ordering medications,tests, procedures, referring, communicating with other health resident care assistant, indepentently interpreting results, counseling the patient and care coordination
[2024-09-02] MEDS: Sodium Zirconium Cyclosilicate 10 GM PKT PO (10:12)
[2024-09-02] MEDS: Normal Saline 250 ML 125 ML IV (10:46)
[2024-09-02 11:08] LABS: Bilirubin Negative (Negative); Blood Negative (Negative); Glucose Negative (Negative); Ketones Negative (Negative); Leukocyte Esterase Negative (Negative); Nitrite Negative (Negative); Specific Gravity 1.025 (1.005-1.025)
[2024-09-02 11:10] LABS: Clarity Sl Cloudy (Clear)
[2024-09-02 11:16] VITALS: BP 124/72; PULSE 72; RESP 18; TEMP 36.1; O2SAT 98
[2024-09-02 11:21] LABS: Bacteria Few HPF (Negative); C & S Indicated? No; Casts Negative LPF (Negative); Crystals Negative HPF (Negative); Epithelial Cells Moderate HPF (Negative); Mucus Negative (Negative); Other Cells Few Transitional (Negative); RBC 0-2 HPF (0-2)
[2024-09-02 11:31] LABS: Sodium, Urine 27 mmol/L
--- NOTE | 2024-09-02 11:50 | DSE_ITS ---
Date of service: 09/02/24 Time of Service: 11:50 DS: Diagnosis Discharge Diagnosis (1) Cellulitis of right ankle: Status: Acute (2) Severe sepsis: Status: Acute (3) Acute kidney injury superimposed on CKD: Status: Acute (4) Peripheral neuropathy: (5) Tobacco use: (6) HTN (hypertension): (7) CAD (coronary artery disease): (8) DARIO (obstructive sleep apnea): (9) GERD (gastroesophageal reflux disease): (10) CHF (congestive heart failure): Status: Chronic (11) Diabetes: Status: Chronic (12) On deep vein thrombosis (DVT) prophylaxis: Status: Acute Discharge Plan Disposition Patient Disposition: Transfer-Acute Inpatient Care Specific Acute Inpt Facility: [facility] Condition: Stable Discharge Details Reason For Visit: Infected right ankle wound Admit Date/Time: 08/31/24 04:58 Admit Provider: Torrey Ocasio Attending Provider: Torrey Ocasio Primary Care Provider: Kalli Gamble V Hospital Course Hospital Course: This 62-year-old male presented to the emergency department with copious purulent discharge from his right ankle wound, status post multiple surgeries at [facility] for revascularization and primary fusion due to the complexity of his ankle fracture and underlying comorbidities. While the desire was for him to get the [facility] there were no available beds. Therefore, he was admitted for IV antibiotics and management of the wound. He presented initially with severe sepsis criteria with tachypnea and leukocytosis and acute kidney injury. On hospital day #1 he was taken to the operating room for irrigation debridement of these 3 wounds about his foot and ankle. A wound VAC was placed at the termination of this procedure to the lateral ankle wound. His blood cultures remain negative. His wound cultures currently growing gram-positive cocci. He was started on broad-spectrum antibiotics and narrow down to linezolid to cover gram-positive organisms, including MRSA, and hopefully avoid worsening his underlying acute kidney injury. Blood cultures were negative at 24 hours, wound culture grew GPC with pending sensitivity. Over the stay the patient BRAYAN on CKD worsened with creatinine at 4.3 today with a BUN at 70, baseline creatinine seems to have been 1.7-2. Hypokalemia at 5.2 was treated with a dose of Lokelma. Current medicine were adjusted to renal function. Normal saline 250 cc over [address] Marino hospitalist at [facility] was updated orders and findings. Repeat BMP at 1:00 not done as the patient was accepted to [facility]. Prior to to transfer , the patient was hemodynamically stable, not requiring oxygen supplementation. Informal POCUS completed with no overt B-lines seen, IVC seems non-plethoric. Patient will be transported to [facility] [place] EMS. Dr. Ocasio, orthopedist was informed. Discussed with Dr. Carmen Home Meds and New Rx's Prescriptions: No Action polyethylene glycol 3350 17 gram/dose powder 238 g PO ONCE Qty: 238 0RF Rx Instructions: take per colonoscopy instructions famotidine 20 mg tablet 20 mg PO DAILY rosuvastatin 40 mg tablet 40 mg PO DAILY aspirin 81 mg tablet,delayed release (DR/EC) 81 mg PO DAILY clopidogrel 75 mg tablet 75 mg PO DAILY ergocalciferol (vitamin D2) 50,000 unit tablet 5,000 unit PO DAILY Glucagon Emergency Kit (human) 1 mg recon soln 1 mg subcut Q20M PRN Rx Instructions: until target blood sugar attained albuterol sulfate [Ventolin HFA] 90 mcg/actuation HFA aerosol inhaler 2 puff inhalation Q6H PRN ranolazine 500 mg tablet extended release 12 hr 500 mg PO BID metoprolol succinate 100 mg tablet extended release 24 hr 100 mg PO BID amitriptyline 50 mg tablet 100 mg PO QHS isosorbide mononitrate 60 mg tablet extended release 24 hr 60 mg PO DAILY nitroglycerin 400 mcg/spray spray,non-aerosol 1 spray translingual Q5M PRN Rx Instructions: do not exceed 3 doses per episode oxycodone-acetaminophen [Percocet] 10-325 mg tablet 1 tab PO BID PRN duloxetine 60 mg capsule,delayed release(DR/EC) 60 mg PO BID (DME) blood-glucose meter [Parkouch Ultra2 Meter] Kit MISCELLANEOUS glucagon HCl [Glucagon (HCl) Emergency Kit] 1 mg Recon Soln 1 mg IM USEASDIRECTD pantoprazole 40 mg tablet,delayed release (DR/EC) 40 mg PO BID Patient Comments: TAKE 1 TABLET BY MOUTH TWICE DAILY insulin aspart U-100 [Novolog U-100 Insulin aspart] 100 unit/mL solution continuous subcutaneous infusion (DME) Nuxeocom G6 Sensor Device MISCELLANEOUS Patient Comments: 1 DEVICE EVERY 10 DAYS Discharge Instructions Activity:: Activity as Tolerated Equipment/Supplies:: W/C Diet:: Heart healthy diabetic Discharge Orders Discharge Orders: Discharge Order (Routine); Ordered 09/02/24 Ordered By: Brooke Abdalla DS: Summary Time Spent with Patient providing and/or coordinating discharge services: Greater than 30 minutes Status at Discharge Functional status at discharge: bed bound Overall status at discharge: patient is not back to baseline Mental Status: mental status grossly normal Speech and Movement: speech and movement normal Mood: congruent mood Affect: normal affect Quality:SDOH Health Related Social Needs: Health related social needs transportation insecurity (Z59.82) Exam Narrative Exam Narrative: Constitutional The patient is in bed without acute distress, improved alertness Neuro:alert and oriented x 4,nonfocal Chest:Chest is symmetrical and normal appearance Resp: Shallow breaths, fine bi-basilar crackles Cardio: regular rhythm, S1, S2, no murmur, pedis artery not felt on the foot but perceptible but faint with doppler near the ankle on prior exam, right toes appears well perfused GI: Abdomen is not distended, soft and non tender, bowel sounds are present Integumentary: Wound vac to right ext malleolar surgical site/ ankle to be removed for transport, dorsal foot ulcer with mepilex - Psych: RASS 0, congruent mood and normal affect. Psych Mental Status: mental status grossly normal Speech and Movement: speech and movement normal Mood: congruent mood Affect: normal affect DS: Data Vitals/I&O Vitals and I&O: Vital Signs Temperature 36.1 C L 09/02/24 11:16 Temperature Source Temporal Artery Scan 09/02/24 11:16 Pulse 72 09/02/24 11:16 Pulse Rhythm Regular 08/31/24 06:02 Respiratory Rate 18 09/02/24 11:16 Respiratory Effort Normal, Non-Labored 08/31/24 06:02 Respiratory Depth Normal 08/31/24 05:00 Respiratory Pattern Normal 08/31/24 03:00 Blood Pressure 124/72 09/02/24 11:16 Blood Pressure Position Sitting 08/30/24 21:50 Pulse Oximetry 98 09/02/24 11:16 Oxygen Delivery Method Room Air 09/02/24 11:16 Oxygen Flow Rate 0 09/02/24 11:16 Pain Level 8 09/02/24 08:32 Comment post op - again in 15 min 08/31/24 16:44 Intake & Output 09/01/24 09/01/24 09/02/24 11:59 23:59 11:59 Intake Total 2510 / 2750 240 / 2750 800 / 800 Output Total 300 / 300 900 / 900 Balance 2210 / 2450 240 / 2450 -100 / -100 Intake: IV 2150 / 2150 Oral 360 / 600 240 / 600 800 / 800 Output: Urine 300 / 300 900 / 900 Other: Urine Color Yellow Yellow Straw Urine Appearance Clear Urine Odor None Comment pt was a full bed change Data Completed and Pending Labs on day of discharge: Labs from last 24 hours 09/02/24 09/02/24 09/02/24 13:00 10:55 07:58 WBC 18.51 H RBC 3.64 L Hgb 10.3 L Hct 32.5 L MCV 89 MCH 28.3 MCHC 31.7 L RDW 14.9 H Plt Count 261 MPV 11.4 H Immature Gran % 2.1 Neutrophils % 76.1 Lymphocytes % 11.8 Monocytes % 5.7 Eosinophils % 3.8 Basophils % 0.5 Nucleated RBC % 0.1 Absolute Neutrophils 14.09 H Absolute Lymphocytes 2.18 Absolute Monocytes 1.06 H Absolute Eosinophils 0.70 Absolute Basophils 0.09 Sodium Pending 132 L Potassium Pending 5.2 H D Chloride Pending 100 Carbon Dioxide Pending 23.5 Anion Gap Pending 8.5 BUN Pending 70 H Creatinine Pending 4.3 H* D Est GFR (CKD-EPI 2020) Pending 14.78 Glucose Pending 192 H Calcium Pending 9.0 C-Reactive Protein 23.06 H Urine Color Yellow Urine Clarity Sl Cloudy Urine pH 5.0 Ur Specific [place] 1.025 Urine Protein 100 H Urine Ketones Negative Urine Blood Negative Urine Nitrite Negative Urine Bilirubin Negative Urine Urobilinogen 1.0 H Ur Leukocyte Esterase Negative Urine RBC 0-2 Urine WBC 5-10 Ur Epithelial Cells Moderate Urine Crystals Negative Urine Bacteria Few Urine Casts Negative Urine Mucus Negative Urine Other Few Transitional Ur Culture Indicated? No Ur Random Sodium 27 Urine Glucose Negative Preliminary micro results at discharge 08/31/24 15:58 Surgical Culture - Preliminary Ankle - Right Staphylococcus aureus 08/31/24 15:58 Surgical Culture - Preliminary Ankle - Right Staphylococcus aureus 08/31/24 15:58 Anaerobic Culture - Preliminary Ankle - Right 08/31/24 15:58 Anaerobic Culture - Preliminary Ankle - Right 08/30/24 22:53 Skin Culture - Preliminary Foot - Right Staphylococcus aureus 08/31/24 21:30 Blood Culture - Preliminary Blood NO GROWTH 24 HOURS 08/31/24 21:35 Blood Culture - Preliminary Blood NO GROWTH 24 HOURS PFSH All Active Problems (Updated 09/01/24 @ 16:13 by Brooke Adballa APRN) On deep vein thrombosis (DVT) prophylaxis (Acute) Surgical wound infection (Acute) CHF (congestive heart failure) (Chronic) Acute kidney injury superimposed on CKD (Acute) Deep vein thrombosis (DVT) prophylaxis declined (Acute) Severe sepsis (Acute) PVD (peripheral vascular disease) (Chronic) Diabetes (Chronic) Diabetic foot ulcer (Acute) Cellulitis of right ankle (Acute) No-show for appointment (Acute) Medical History Retinal disease, left Uses continuous positive airway pressure (CPAP) ventilation at home Hypotension Dehydration Below-knee amputation of left lower extremity Peripheral neuropathy Cervicalgia Headache, post-traumatic COVID-19 Phantom limb pain Tobacco use Chronic kidney disease, stage III (moderate) Inferior PA 2006 Hx of pancreatitis Exposure to COVID-19 virus 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 CAD (coronary artery disease) multiple stents 2006 Diabetes mellitus GERD (gastroesophageal reflux disease) HTN (hypertension) Hypercholesterolemia DARIO (obstructive sleep apnea) Obesities, morbid Migraine Neuropathy Diabetic foot ulcer Poorly controlled diabetes mellitus Chest pain Surgical History Hx of cardiac catheterization Status post below knee amputation of left lower extremity History of lung biopsy History of heart artery stent S/P foot surgery Social History Smoking/Tobacco Use Status: Former Tobacco Use Quit Date: 05/30/24 Smoking risk assessment performed?: Yes Alcohol Intake: never Drug use: Never Substance use type: does not use Housing: house Do you feel safe at home: Yes Do you feel safe in your relationship?: Yes Time Spent with Patient Time Spent with Patient: 70-84 minutes4 Time was spent: preparing to see the patient(eg.review tests), obtaining and/or reviewing separately otained hiistory, ordering medications,tests, procedures, referring, communicating with other health acute care certified nursing assistant, indepentently interpreting results, counseling the patient and care coordination
[2024-09-02 13:29] LABS: Anion Gap 9.7 mmol/L (3-11); BUN 71 mg/dL (7-18); CO2 23.3 mmol/L (21.0-32.0); Calcium 8.8 mg/dL (8.5-10.1); Chloride 97 mmol/L (98-107); Estimated GFR 14.78 (mL/min/1.73m2); Glucose 178 mg/dL (74-106); Sodium 130 mmol/L (136-145)
[2024-09-02 13:30] LABS: CREATININE 4.3 mg/dL (0.70-1.30)
[2024-09-02 15:26] VITALS: BP 128/77; PULSE 71; RESP 18; TEMP 36.6; O2SAT 96
--- NOTE | 2024-09-02 16:23 | CHAPLAIN ---
Ed was resting in bed when I visited. He was very pleasant and easily engaged in conversation. He told me about being at [facility] for month in May/June, then home for a month and now here. His is very supportive, he said, and took good care of him at home. She works at the [employer] longterm on [address] [facility] in [place] [facility]. She visits him, but has a real fear of hospitals.
[2024-09-02] MEDS: Enoxaparin 30 MG/0.3 ML SYR SC (17:41)
[2024-09-02] MEDS: Normal Saline 250 ML IV (18:16)
[2024-09-02 19:24] VITALS: BP 148/83; PULSE 72; RESP 17; TEMP 35.8; O2SAT 95
[2024-09-02] MEDS: Amitriptyline 50 MG TAB 100 MG PO (19:34)
== END 2024-09-02 21:15 | disposition short-term general hospital (02) | DRG 492 ==
LOC: ER 08-31 05:37 → MS 08-31 05:44
PROVIDERS: Nurse Practitioner Acute Care; Admitting Provider Student in an Organized Health Care Education/Training Program; Emergency Provider Student in an Organized Health Care Education/Training Program; PCP Family Medicine; Visit Provider Student in an Organized Health Care Education/Training Program
PROC: 0QBJ0ZZ Excision of Right Fibula, Open Approach (ICD-10-PCS; CPT 11044; principal; 2024-08-31 14:45)
DX: T84.7XXA Infection and inflammatory reaction due to other internal orthopedic prosthetic devices, implants and grafts, initial encounter (principal); A41.9 Sepsis, unspecified organism; R65.20 Severe sepsis without septic shock; I13.0 Hypertensive heart and chronic kidney disease with heart failure and stage 1 through stage 4 chronic kidney disease, or unspecified chronic kidney disease; L03.115 Cellulitis of right lower limb; N18.4 Chronic kidney disease, stage 4 (severe); N17.9 Acute kidney failure, unspecified; L97.418 Non-pressure chronic ulcer of right heel and midfoot with other specified severity; M86.8X6 Other osteomyelitis, lower leg; E11.22 Type 2 diabetes mellitus with diabetic chronic kidney disease; E11.42 Type 2 diabetes mellitus with diabetic polyneuropathy; I25.10 Atherosclerotic heart disease of native coronary artery without angina pectoris; G47.33 Obstructive sleep apnea (adult) (pediatric); K21.9 Gastro-esophageal reflux disease without esophagitis; E11.621 Type 2 diabetes mellitus with foot ulcer; I50.9 Heart failure, unspecified; E87.5 Hyperkalemia; D63.1 Anemia in chronic kidney disease; Z89.512 Acquired absence of left leg below knee; I25.2 Old myocardial infarction; E78.00 Pure hypercholesterolemia, unspecified; E66.01 Morbid (severe) obesity due to excess calories; G43.909 Migraine, unspecified, not intractable, without status migrainosus; E11.65 Type 2 diabetes mellitus with hyperglycemia; Z87.891 Personal history of nicotine dependence; I73.9 Peripheral vascular disease, unspecified; E11.69 Type 2 diabetes mellitus with other specified complication; Z79.4 Long term (current) use of insulin
CPT/HCPCS: 11044; 00123; 36410; 36415; 76000; 80048; 80053; 82306; 85027; 85652; 87040; 87077; 96361; 96365; 99223; 99233; 99285; J1650; 73600; 73610; 73700; 81003; 81015; 83036; 83735; 84300; 85025; 86140; 87070; 87075; 87186; 87205; 99239; J1815; J2020; J2250; J2543; J3010; J3490

== ENCOUNTER 2024-10-26 13:37 | Inpatient (IN) | payer MEDICARE, SELFPAY ==
[2024-10-26] VITALS (63 sets, daily range): BP systolic 123–207; BP diastolic 81–177; PULSE 68–82; RESP 2–36; TEMP 35.9–36.6; O2SAT 87–98
--- NOTE | 2024-10-26 14:00 | RT.EKG_ITS ---
APPROVED REPORT Exam: Resting ECG Reason for Exam: ams Patient Location: E HR:78 bpm ECG Measurements Heart Rate 78 AXIS AK 174 P 81 QRSd 119 QRS 15 QT 434 T 79 QTc 495 Conclusion Sinus rhythm 78 normal axis no stemi
--- NOTE | 2024-10-26 14:00 | DI.RAD_ITS ---
Exam(s) XR PORTABLE CHEST AP EXAM: XR PORTABLE CHEST AP CLINICAL HISTORY: AMS, sob. TECHNIQUE: 2D digital imaging was performed. COMPARISON: CT CT THORAX ABD/PEL CTA from 12/22/2021 CR,XR XR PORTABLE CHEST AP from 12/22/2021 FINDINGS: Single AP portable view. There is cardiomegaly and right coronary artery stent.. The mediastinum is not widened. There is a 1.8 cm peripherally located nodule in the right upper lobe which is stable when compared t o chest x-ray and CT scans of 2021. There is a bilateral interstitial pattern and there is a small-moderate size right pleural effusion. IMPRESSION: Cardiomegaly. Coronary artery stent. Interstitial bilateral pattern and small-moderate size right p leural effusion. Findings are most probably consistent with pulmonary edema. DATA REPOSITORY: RADIATION DOSE DELIVERED:
--- NOTE | 2024-10-26 14:16 | ED.GENADUL_ITS ---
Discharge Plan Disposition Patient Disposition: Admit to [facility] Condition: Fair Discharge Details Chief Complaint: Dizzy/Sync Clinical Impression: CHF (congestive heart failure), Acute hypoxic respiratory failure Primary Care Provider: Kalli Gamble V ED Provider: Corine Wiggins Home Meds and New Rx's Prescriptions: No Action aspirin 81 mg tablet,delayed release (DR/EC) 81 mg PO DAILY clopidogrel 75 mg tablet 75 mg PO DAILY Glucagon Emergency Kit (human) 1 mg recon soln 1 mg subcut Q20M PRN Rx Instructions: until target blood sugar attained albuterol sulfate [Ventolin HFA] 90 mcg/actuation HFA aerosol inhaler 1 puff inhalation Q4H PRN ranolazine 500 mg tablet extended release 12 hr 500 mg PO BID Patient Comments: need to re-order, refill date 11/06 metoprolol succinate 100 mg tablet extended release 24 hr 100 mg PO BID isosorbide mononitrate 60 mg tablet extended release 24 hr 60 mg PO DAILY nitroglycerin 400 mcg/spray spray,non-aerosol 1 spray translingual Q5M PRN Rx Instructions: do not exceed 3 doses per episode amlodipine 5 mg tablet 5 mg PO DAILY Patient Comments: TAKE 1 TABLET BY MOUTH DAILY atorvastatin 40 mg tablet 40 mg PO DAILY Patient Comments: TAKE 1 TABLET BY MOUTH DAILY budesonide-formoterol [Symbicort] 160-4.5 mcg/actuation HFA aerosol inhaler 2 puff INHALATION BID Patient Comments: INHALE 2 PUFFS BY MOUTH TWICE DAILY cefadroxil 500 mg capsule 500 mg PO BID Patient Comments: TAKE 1 CAPSULE BY MOUTH EVERY 12 HOURS FOR 4 WEEKS tamsulosin 0.4 mg capsule 0.4 mg PO DAILY Patient Comments: TAKE 1 CAPSULE BY MOUTH DAILY polyethylene glycol 3350 17 gram/dose powder 17 g PO DAILY PRN torsemide 20 mg tablet 20 mg PO BID Patient Comments: TAKE 1 TABLET BY MOUTH TWICE DAILY duloxetine [Cymbalta] 30 mg capsule,delayed release(DR/EC) 30 mg PO BID insulin glargine [Basaglar KwikPen U-100 Insulin] 100 unit/mL (3 mL) insulin pen 44 unit subcut DAILY Spiriva Respimat 2.5 mcg/actuation mist 2 inh inhalation DAILY torsemide 10 mg tablet 10 mg PO DAILY Patient Comments: TAKE 1 TABLET BY MOUTH DAILY (DME) Omnipod 5 G6-G7 Pods (Gen 5) Cartridge SUBCUT Patient Comments: CHANGE POD EVERY 24 TO 48 HOURS DIRECTED (DME) blood-glucose meter [OneTouch Ultra2 Meter] Kit MISCELLANEOUS glucagon HCl [Glucagon (HCl) Emergency Kit] 1 mg Recon Soln 1 mg IM USEASDIRECTD pantoprazole 40 mg tablet,delayed release (DR/EC) 40 mg PO DAILY Patient Comments: TAKE 1 TABLET BY MOUTH TWICE DAILY insulin aspart U-100 [Novolog U-100 Insulin aspart] 100 unit/mL solution See Rx Instructions continuous subcutaneous infusion .COMPLEX Patient Comments: per pt no insulin since d/c Rx Instructions: medium dose sliding scale as well as meal associated insulin TID (1 unit per 5 grams of carbs) via continuous subcutaneous infusion; medium dose sliding scale as well as meal associated insulin TID (1 unit per 5 grams of carbs) (DME) Dexcom G6 Sensor Device MISCELLANEOUS Patient Comments: 1 DEVICE EVERY 10 DAYS HPI General Date/Time Provider Initiated Documentation: 10/26/24 13:47 . Limitations to Documentation: no limitations . Information obtained by: patient and old records reviewed . HPI Narrative: 64-year-old gentleman with past medical history including diabetes, peripheral vascular disease, left BKA, right foot infection, CHF, COPD presents for evaluation of altered mental status. He reports that he was recently discharged from the rehab facility after a long hospital stay. He reports when he was discharged, his medication had not been set up and he has been without insulin for 2 days. He reports that he has not been feeling well, poor appetite, poor oral intake, nausea but no vomiting. He reports some mild shortness of breath. He says that his inhalers were working, but he was also supposed to get nebulizer treatments which were not set up prior to his discharge. He denies any chest pain or abdominal pain. He states that today he has been having hallucinations and seeing people in his house that are not there including his son. Related Data Home Medications ?Medication ?Instructions ?Recorded ?Confirmed blood-glucose meter (OneTouch 07/18/20 10/26/24 Ultra2 Meter kit) glucagon HCl 1 mg solution for 1 mg IM USEASDIRECTD for severe 07/18/20 10/26/24 injection (Glucagon (HCl) hypoglycemia Emergency Kit) albuterol sulfate 90 mcg/actuation 1 puff inhalation Q4H PRN 06/07/21 10/26/24 aerosol inhaler (Ventolin HFA) aspirin 81 mg tablet,delayed 81 mg PO DAILY 06/07/21 10/26/24 release clopidogrel 75 mg tablet 75 mg PO DAILY 06/07/21 10/26/24 glucagon 1 mg solution for 1 mg subcut Q20M PRN 06/07/21 10/26/24 injection (Glucagon Emergency Kit) isosorbide mononitrate 60 mg 60 mg PO DAILY 06/07/21 10/26/24 tablet,extended release 24 hr metoprolol succinate 100 mg 100 mg PO BID 06/07/21 10/26/24 tablet,extended release 24 hr nitroglycerin 400 mcg/spray 1 spray translingual Q5M PRN 06/07/21 10/26/24 translingual ranolazine 500 mg tablet,extended 500 mg PO BID 06/07/21 10/26/24 release,12 hr blood-glucose sensor (Cooliris G6 08/30/24 10/26/24 Sensor device) insulin aspart U-100 100 unit/mL See Rx Instructions continuous 08/30/24 10/26/24 subcutaneous solution (Novolog subcutaneous infusion .COMPLEX U-100 Insulin aspart) pantoprazole 40 mg tablet,delayed 40 mg PO DAILY 08/30/24 10/26/24 release amlodipine 5 mg tablet 5 mg PO DAILY 10/26/24 10/26/24 atorvastatin 40 mg tablet 40 mg PO DAILY 10/26/24 10/26/24 budesonide-formoterol HFA 160 2 puff inhalation BID 10/26/24 10/26/24 mcg-4.5 mcg/actuation aerosol inhaler (Symbicort) cefadroxil 500 mg capsule 500 mg PO BID 10/26/24 10/26/24 duloxetine 30 mg capsule,delayed 30 mg PO BID 10/26/24 10/26/24 release (Cymbalta) insulin glargine 100 unit/mL (3 44 unit subcut DAILY 10/26/24 10/26/24 mL) subcutaneous pen (Basaglar KwikPen U-100 Insulin) insulin pump cart,auto,BT,G6/7 10/26/24 10/26/24 (Omnipod 5 G6-G7 Pods (Gen 5) subcutaneous cartridge) polyethylene glycol 3350 17 17 g PO DAILY PRN 10/26/24 10/26/24 gram/dose oral powder tamsulosin 0.4 mg capsule 0.4 mg PO DAILY 10/26/24 10/26/24 tiotropium bromide 2.5 2 inh inhalation DAILY 10/26/24 10/26/24 mcg/actuation mist for inhalation (Spiriva Respimat) torsemide 10 mg tablet 10 mg PO DAILY 10/26/24 10/26/24 torsemide 20 mg tablet 20 mg PO BID 10/26/24 10/26/24 Allergies Allergy/AdvReac Type Severity Reaction Status Date / Time Benzodiazepines Allergy Mild Unknown Verified 10/26/24 14:17 hyoscyamine Allergy Mild Unknown Verified 10/26/24 14:18 Penicillins Allergy Unknown tolerated Unverified 10/26/24 14:17 Zosyn on admission 06/2016 insulin glargine, human AdvReac Intermediate Diarrhea Unverified 10/26/24 14:17 recombin. a (From Lantus) liraglutide (From Victoza) AdvReac Intermediate Diarrhea Unverified 10/26/24 14 :17 lorazepam AdvReac Intermediate Loopy Unverified 10/26/24 14:17 metformin AdvReac Intermediate Diarrhea Unverified 10/26/24 14:17 methadone AdvReac Intermediate Loopy Unverified 10/26/24 14:17 pregabalin (From Lyrica) AdvReac Intermediate Diarrhea Verified 10/26/24 14:17 gabapentin AdvReac Mild loopy Unverified 10/26/24 14:17 morphine AdvReac Unknown Flushing Unverified 10/26/24 14:17 when given too fast General Stated Complaint: Dizzy/Sync CARLOS EDUARDO: 3 Exam Narrative Exam Narrative: Review of Systems: All systems reviewed & are unremarkable except as noted in HPI and below Well-developed, chronically ill-appearing NCAT Dry mucous membranes RRR no murmur Unlabored respiratory effort O2 sat 90% on room air with talking, able to speak in full and complete sentences, coarse breath sounds bilaterally Nondistended abdomen, soft nontender Left lower leg amputation, right lower extremity with wound VAC in place Seems sleepy and does take some breaks while talking Course Vital Signs Vital signs: Vital Signs Pulse 80 10/26/24 13:43 Respiratory Rate 7 L 10/26/24 13:43 Pulse Oximetry 95 10/26/24 13:43 Temperature 35.9 C L 10/26/24 13:46 Temperature Source Oral 10/26/24 13:46 Pulse 78 10/26/24 14:10 Pulse 78 10/26/24 14:10 Respiratory Rate 12 10/26/24 14:10 Respiratory Effort Normal, Non-Labored 10/26/24 13:55 Respiratory Depth Normal 10/26/24 13:55 Respiratory Pattern Normal 10/26/24 13:55 Blood Pressure 151/102 H 10/26/24 14:01 Blood Pressure Mean 116 10/26/24 14:01 Blood Pressure Position Sitting 10/26/24 13:46 Pulse Oximetry 92 10/26/24 14:10 Oxygen Delivery Method Room Air 10/26/24 13:46 Oxygen Flow Rate 0 10/26/24 13:46 Pain Level 8 10/26/24 13:46 Comment no pain meds 10/26/24 13:46 Lab/Test Results Lab/Test Results: 10/26/24 14:02 Blood Blood Culture - Pending 10/26/24 14:02 Blood Blood Culture - Pending Medical Decision Making Emergent evaluation of altered mental status, SOB and hyperglycemia. Patient has been without medication for several days after discharge from rehab facility . The patient has not had insulin for 2 days. Initial differential includes metabolic encephalopathy, electrolyte derangement, organ failure, sepsis. Patient has recently had a prolonged hospitalization and has only been home for 2 days. He has had significant changes in his entire medication list. Glucose today over 300. There is concern for volume overload as well possible CHF exacerbation given his shortness of breath. Lab work was obtained, there is a slight leukocytosis at 14. No significant anemia. His VBG does not reveal acidosis or signs of respiratory failure. He has some CKD which is improved from prior. His BUN is elevated at 59 which may explain some of his encephalopathy. His LFTs were noted to be elevated, an ultrasound of his abdomen was obtained and this did not reveal any acute abnormality. I suspect his LFTs are elevated secondary to CHF exacerbation. His chest x-ray is concerning for pleural effusion and pulmonary edema. He is given IV Lasix. He became hypoxic in the emergency department and required nasal cannula oxygen for support. He does not wear oxygen at home. Given that he now requires oxygen and does not have all of his medications needed at home, at this point patient will be admitted to the hospital for further management diuresis. Quality:SDOH Health Related Social Needs: Health related social needs transportation insecurity (Z59.82) PFSH All Active Problems (Updated 10/26/24 @ 19:32 by Corine Wiggins MD) Hyperlipidemia (Chronic) Acute hypoxic respiratory failure (Acute) Hyperkalemia (Acute) Surgical wound infection (Acute) CHF (congestive heart failure) (Chronic) Acute kidney injury superimposed on CKD (Acute) Severe sepsis (Acute) PVD (peripheral vascular disease) (Chronic) Diabetes (Chronic) Diabetic foot ulcer (Chronic) Cellulitis of right ankle (Acute) No-show for appointment (Acute) Medical History Retinal disease, left Uses continuous positive airway pressure (CPAP) ventilation at home Hypotension Dehydration Below-knee amputation of left lower extremity Peripheral neuropathy Cervicalgia Headache, post-traumatic COVID-19 Phantom limb pain Tobacco use Chronic kidney disease, stage III (moderate) Inferior [place] 2006 Hx of pancreatitis Exposure to COVID-19 virus 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 CAD (coronary artery disease) multiple stents 2006 Diabetes mellitus GERD (gastroesophageal reflux disease) HTN (hypertension) Hypercholesterolemia DARIO (obstructive sleep apnea) Obesities, morbid Migraine Neuropathy Diabetic foot ulcer Poorly controlled diabetes mellitus Chest pain Surgical History Hx of cardiac catheterization Status post below knee amputation of left lower extremity History of lung biopsy History of heart artery stent S/P foot surgery Social History Smoking/Tobacco Use Status: Former Tobacco Use Quit Date: 05/30/24 Smoking risk assessment performed?: Yes Alcohol Intake: never Drug use: Never Substance use type: does not use Housing: house Do you feel safe at home: Yes Do you feel safe in your relationship?: Yes
[2024-10-26 14:47] LABS: BE (Venous) 0 mmol/L (-2-3); HCO3 (Venous) 26 mmol/L (23-28); O2 Sat (Venous) 65 %; TCO2 (Venous) 24 mmol/L (24-29); pCO2 (Venous) 44 mmHg (41-51); pH (Venous) 7.37 (7.31-7.41); pO2 (Venous) 39 mmHg
[2024-10-26 14:48] LABS: Abs Immature Grans 0.13 10^3/uL (0.0-0.06); Absolute Eosinophil Count 0.07 10^3/uL (0.0-0.7); Absolute Lymphocyte Count 1.53 10^3/uL (1.2-3.4); Absolute Monocyte Count 1.01 10^3/uL (0.1-0.8); Basophils % 0.7 %; Eosinophils % 0.5 %; HCT 35.6 % (40.0-50.0); Immature Grans % 0.9 %; Lymphocytes % 10.3 %; MCH 27.4 pg (27.0-33.0); MCHC 30.9 % (32.0-36.0); MCV 89 fL (80-95); MPV 10.4 fL (8.0-11.0); Monocytes % 6.8 %; Neutrophils % 80.8 %; Platelet Count 344 10^3/uL (130-400); RBC 4.01 10^6/uL (4.36-5.78); RDW 17.3 % (11.8-14.1); RDW-SD 56.1 fL; WBC 14.83 10^3/uL (4.4-10.8)
[2024-10-26 14:50] LABS: Absolute Neutrophil Count 11.98 10^3/uL (1.2-6.7); Bilirubin Negative (Negative); Blood Trace-lysed (Negative); Clarity Clear (Clear); Glucose 100 mg/dL (Negative); Ketones Negative (Negative); Leukocyte Esterase Negative (Negative); Nitrite Negative (Negative); Urobilinogen 0.2 mg/dL (Up to 0.2); pH 5.5 (5-8)
[2024-10-26 15:01] LABS: RBC 0-2 HPF (0-2); WBC Negative HPF (0-5)
[2024-10-26 15:02] LABS: Bacteria Rare HPF (Negative); C & S Indicated? No; Casts Negative LPF (Negative); Crystals Negative HPF (Negative); Epithelial Cells Negative HPF (Negative); Mucus Trace (Negative); Other Cells Negative (Negative)
[2024-10-26 15:03] LABS: INR 1.3 (0.9-1.1); PTT Activated 26.1 sec (20.6-30.2); Prothrombin Time 12.7 sec (9.1-11.1)
[2024-10-26 15:04] LABS: *AMPHETAMINES SCREEN URINE Negative (Negative); *BARBITURATES SCREEN URINE Negative (Negative); *BENZODIAZEPINES SCREEN URINE Negative (Negative); Cannabinoids THC Negative (Negative); Cocaine Screen,Urine Negative (Negative); METHADONE URINE SCREEN Negative (Negative); OPIATES URINE SCREEN Negative (Negative)
[2024-10-26 15:09] LABS: Tricyclic Antidepressants Negative (Negative)
--- NOTE | 2024-10-26 15:15 | DI.US_ITS ---
Exam(s) US ABDOMEN LIMITED EXAM: US ABDOMEN LIMITED CLINICAL HISTORY: RUQ, eval GB, liver TECHNIQUE: Ultrasound abdomen performed using standard protocol. COMPARISON: US US ECHOCARDIOGRAM from 12/21/2019 FINDINGS: There is no ascites evident. There is, however, right pleural effusion evident. LIVER: There are no hepatic lesions evident nor dilatation of intrahepatic ducts. GALLBLADDER/BILIARY: There are no gallstones evident and the gallbladder is not distended but the gal lbladder wall appears slightly thickened. There is no pericholecystic fluid. Patient was apparently not tender over the gallbladder during scanning today. The common hepatic duct isnot dilated, measuring 3mm at the level of rhona hepatis. PANCREAS: Not entirely visualized due to overlying bowel gas but no obvious abnormalities. RIGHT KIDNEY:No evidence of solid mass, calculus, nor hydronephrosis. No cortical cysts evident. IMPRESSION: 1. There is no evidence of cholelithiasis but the gallbladder wall appears slightly thickened. The gallbladder is not distended and there is no pericholecystic fluid. No dilatation of the CBD. Patie nt was apparently not tender over the gallbladder during scanning today. If there is suspicion for s ignificant gallbladder disease than consider nuclear HIDA scan to determine if there is a calculus ch olecystitis. 2. No other significant ultrasound findings in the right upper quadrant and there is no ascites 3. There is a right pleural effusion noted, as seen on chest x-ray today. DATA REPOSITORY:
[2024-10-26 15:20] LABS: ALT 96 U/L (16-63); AST 274 U/L (15-37); Alkaline Phosphatase 311 U/L (46-116); Anion Gap 11.9 mmol/L (3-11); BUN 59 mg/dL (7-18); Bilirubin, Total 1.6 mg/dL (0.2-1.0); CO2 27.1 mmol/L (21.0-32.0); CREATININE 2.3 mg/dL (0.70-1.30); Calcium 9.7 mg/dL (8.5-10.1); Chloride 102 mmol/L (98-107); Estimated GFR 31.32 (mL/min/1.73m2); Glucose 295 mg/dL (74-106); Potassium 4.2 mmol/L (3.5-5.1); Sodium 141 mmol/L (136-145); TSH 0.29 uIU/mL (0.36-3.74); Total Protein 7.4 g/dL (6.4-8.2); Troponin I 24 ng/L (<or=76)
[2024-10-26] MEDS: Furosemide 100 MG/10 ML VIAL 80 MG IVP (16:50)
[2024-10-26 18:06] LABS: Troponin I 23 ng/L (<or=76)
[2024-10-26] MEDS: Insulin REGULAR-Human 100 UNITS/ML UNIT 8 UNITS IV (18:40)
--- NOTE | 2024-10-26 19:01 | W.PM.HP.N ---
Date of service: 10/26/24 Time of Service: 19:02 Assessment and Plan Assessment and plan (1) Acute hypoxic respiratory failure: Start date: 10/26/24 Status: Acute Assessment and plan: This is a 64-year-old gentleman with recent worsening of CHF off his usual medical regimen because of confusion after discharge from rehab facility because of insurance purposes. He did respond well to IV Lasix but will be continued twice daily at 80 mg IV. His other chronic medical problems include hyperglycemia with diabetes transitioning to an insulin pump which may be able to be accomplished in the morning with patient bringing his materials and from home. He has had much better control of diabetes with an insulin pump recently. For now he will have glucometer measurements before meals and at bedtime with sliding scale coverage. He will be placed on IV cefepime because of elevated WBC, not having response to oral antibiotics as an outpatient despite having no fever. Cultures were obtained. Wound care can evaluate his right foot. His plans are to return home with VNA services. He does need to have a permanent ramp in place because of his immobility. He is not septic but he feels he has failed outpatient treatment of his chronic infection of the right lower extremity. He is a full code. (2) CHF (congestive heart failure): Start date: 10/26/24 Status: Chronic Assessment and plan: Continue IV Lasix twice daily converted back to his torsemide and increase dose once stabilized. BNP was markedly elevated at12,633 with his baseline last measured in 2018 at 1,126. (3) Diabetic foot ulcer: Status: Chronic Assessment and plan: Continue wound care and IV cefepime. (4) Diabetes mellitus: Assessment and plan: Glucometer measurements before meals and at bedtime with sliding scale coverage while hospitalized. Convert to insulin pump once available. (5) PVD (peripheral vascular disease): Status: Chronic Assessment and plan: Status post left BKA now with right foot ulcer which is poorly healing. Continue Plavix and aspirin. (6) Chronic kidney disease, stage III (moderate): Assessment and plan: Monitor lab while diuresing. (7) HTN (hypertension): Assessment and plan: Continue outpatient medical therapy. (8) Hyperlipidemia: Status: Chronic Assessment and plan: Continue outpatient medical therapy. (9) CAD (coronary artery disease): Assessment and plan: No exacerbation with monitoring while hospitalized. (10) DARIO (obstructive sleep apnea): Assessment and plan: Continue home CPAP treatment. History of Present Illness History of Present Illness Chief Complaint: Altered mental status with hyperglycemia and dyspnea, hypoxemia. Narrative: This is a 64-year-old male patient who has had an unfortunate course since May 2024 when he fractured his right ankle with ORIF resulted in chronic infection in that lower extremity. He is already status post left BKA because of peripheral vascular disease and poorly controlled diabetes. Recently he was being placed on a insulin pump for diabetes for better control and this can be started once he brings in from home. He does have hyperglycemia and uncontrolled CHF of medical therapy recently being discharged from [facility] prematurely because of loss of insurance coverage. He just started to use his left BKA prosthesis after prolonged immobilization from his right ankle fracture. In the ED was found to be hypoglycemic with fluid overload by imaging. He was given 80 mg of Lasix and was less short of breath. He was even tying his shoes previously. Denies any significant change in peripheral edema with left BKA and hard edema right chronically. He is morbidly obese. He will be admitted for aggressive treatment of the CHF with IV Lasix 80 mg twice daily with usual diuretic being torsemide approximately 50 mg daily. He is usually on room air at home. He will not be discharged on oxygen. Patient will require continued wound care and rehabilitation for his slowly healing fracture of the right ankle which is now partial weightbearing. He is a full code Review of Systems Narrative: 13 point review of systems otherwise unrevealing or stable. PFSH All Active Problems Hyperlipidemia (Chronic) Acute hypoxic respiratory failure (Acute) Hyperkalemia (Acute) Surgical wound infection (Acute) CHF (congestive heart failure) (Chronic) Acute kidney injury superimposed on CKD (Acute) Severe sepsis (Acute) PVD (peripheral vascular disease) (Chronic) Diabetes (Chronic) Diabetic foot ulcer (Chronic) Cellulitis of right ankle (Acute) No-show for appointment (Acute) Medical History Retinal disease, left Uses continuous positive airway pressure (CPAP) ventilation at home Hypotension Dehydration Below-knee amputation of left lower extremity Peripheral neuropathy Cervicalgia Headache, post-traumatic COVID-19 Phantom limb pain Tobacco use Chronic kidney disease, stage III (moderate) Inferior AK 2006 Hx of pancreatitis Exposure to COVID-19 virus 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 CAD (coronary artery disease) multiple stents 2007 Diabetes mellitus GERD (gastroesophageal reflux disease) HTN (hypertension) Hypercholesterolemia DARIO (obstructive sleep apnea) Obesities, morbid Migraine Neuropathy Diabetic foot ulcer Poorly controlled diabetes mellitus Chest pain Surgical History Hx of cardiac catheterization Status post below knee amputation of left lower extremity History of lung biopsy History of heart artery stent S/P foot surgery Social History Smoking/Tobacco Use Status: Former Tobacco Use Quit Date: 05/30/24 Smoking risk assessment performed?: Yes Alcohol Intake: never Drug use: Never Substance use type: does not use Housing: house Do you feel safe at home: Yes Do you feel safe in your relationship?: Yes Meds Allergies and Home Medications Allergies Allergy/AdvReac Type Severity Reaction Status Date / Time Benzodiazepines Allergy Mild Unknown Verified 10/26/24 14:17 hyoscyamine Allergy Mild Unknown Verified 10/26/24 14:18 Penicillins Allergy Unknown tolerated Unverified 10/26/24 14:17 Zosyn on admission 06/2016 insulin glargine, human AdvReac Intermediate Diarrhea Unverified 10/26/24 14:17 recombin. a (From Lantus) liraglutide (From Victoza) AdvReac Intermediate Diarrhea Unverified 10/26/24 14:17 lorazepam AdvReac Intermediate Loopy Unverified 10/26/24 14:17 metformin AdvReac Intermediate Diarrhea Unverified 10/26/24 14:17 methadone AdvReac Intermediate Loopy Unverified 10/26/24 14:17 pregabalin (From Lyrica) AdvReac Intermediate Diarrhea Verified 10/26/24 14:17 gabapentin AdvReac Mild loopy Unverified 10/26/24 14:17 morphine AdvReac Unknown Flushing Unverified 10/26/24 14:17 when given too fast Home Medications ?Medication ?Instructions ?Recorded ?Confirmed ?Type blood-glucose meter (OneTouch 07/18/20 10/26/24 History Ultra2 Meter kit) glucagon HCl 1 mg solution for 1 mg IM USEASDIRECTD for severe 07/18/20 10/26/24 History injection (Glucagon (HCl) hypoglycemia Emergency Kit) albuterol sulfate 90 mcg/actuation 1 puff inhalation Q4H PRN 06/07/21 10/26/24 History aerosol inhaler (Ventolin HFA) aspirin 81 mg tablet,delayed 81 mg PO DAILY 06/07/21 10/26/24 History release clopidogrel 75 mg tablet 75 mg PO DAILY 06/07/21 10/26/24 History glucagon 1 mg solution for 1 mg subcut Q20M PRN 06/07/21 10/26/24 History injection (Glucagon Emergency Kit) isosorbide mononitrate 60 mg 60 mg PO DAILY 06/07/21 10/26/24 History tablet,extended release 24 hr metoprolol succinate 100 mg 100 mg PO BID 06/07/21 10/26/24 History tablet,extended release 24 hr nitroglycerin 400 mcg/spray 1 spray translingual Q5M PRN 06/07/21 10/26/24 History translingual ranolazine 500 mg tablet,extended 500 mg PO BID 06/07/21 10/26/24 History release,12 hr blood-glucose sensor (Dexcom G6 08/30/24 10/26/24 History Sensor device) insulin aspart U-100 100 unit/mL See Rx Instructions continuous 08/30/24 10/26/24 History subcutaneous solution (Novolog subcutaneous infusion .COMPLEX U-100 Insulin aspart) pantoprazole 40 mg tablet,delayed 40 mg PO DAILY 08/30/24 10/26/24 History release amlodipine 5 mg tablet 5 mg PO DAILY 10/26/24 10/26/24 History atorvastatin 40 mg tablet 40 mg PO DAILY 10/26/24 10/26/24 History budesonide-formoterol HFA 160 2 puff inhalation BID 10/26/24 10/26/24 History mcg-4.5 mcg/actuation aerosol inhaler (Symbicort) cefadroxil 500 mg capsule 500 mg PO BID 10/26/24 10/26/24 History duloxetine 30 mg capsule,delayed 30 mg PO BID 10/26/24 10/26/24 History release (Cymbalta) insulin glargine 100 unit/mL (3 44 unit subcut DAILY 10/26/24 10/26/24 History mL) subcutaneous pen (Basaglar KwikPen U-100 Insulin) insulin pump cart,auto,BT,G6/7 10/26/24 10/26/24 History (Omnipod 5 G6-G7 Pods (Gen 5) subcutaneous cartridge) polyethylene glycol 3350 17 17 g PO DAILY PRN 10/26/24 10/26/24 History gram/dose oral powder tamsulosin 0.4 mg capsule 0.4 mg PO DAILY 10/26/24 10/26/24 History tiotropium bromide 2.5 2 inh inhalation DAILY 10/26/24 10/26/24 History mcg/actuation mist for inhalation (Spiriva Respimat) torsemide 10 mg tablet 10 mg PO DAILY 10/26/24 10/26/24 History torsemide 20 mg tablet 20 mg PO BID 10/26/24 10/26/24 History Exam Narrative Exam Narrative: General: Patient appears older than stated age, moderately morbidly obese, alert and oriented x 3 and in no acute distress. HEENT: Normocephalic, eyes with pupils equal and react to light symmetrically, extraocular movement intact and sclera anicteric. Oropharynx with dry mucosa and fair dentition. Neck: Supple without JVD. Back: Stooped posture without CVA tenderness. Lungs: Decreased aeration at both bases with coarse crackles but no focalizing rales or rhonchi. Fair aeration. Bronchovesicular breath sounds diffusely. No expiratory wheeze. Heart: Regular rate and rhythm with no murmurs or gallops appreciated. Abdomen: Obese contour, soft and nontender to palpation with no palpable hepatosplenomegaly. Bowel sounds positive in all quadrants. Genitalia/rectal: Exam deferred. Skin: Normal color, moist and warm to touch. Actinic changes over sun exposed areas. Hyperpigmentation and shiny atrophic skin over right leg and ankle with bandage over most of the foot and ankle. Dry bandage over anterior ulcer of right ankle. Extremities: Without clubbing, cyanosis or pitting edema with gross hard edema right lower extremity below knee with bandaging as mentioned. Left BKA stump is clean and wrapped in Delfin. No other joint abnormalities. Fair cap refill. Neuro: Cranial nerves II through XII gross intact, no focalizing motor deficit. No tremor. Psych: Normal affect and mood. Patient does have slightly pressured speech. No abnormal thought processes. Remote and recent memory intact. Results Imaging Imaging Studies: Date of Exam: 10/26/24 EXAM: XR PORTABLE CHEST AP CLINICAL HISTORY: AMS, sob. TECHNIQUE: 2D digital imaging was performed. COMPARISON: CT CT THORAX ABD/PEL CTA from 12/22/2021 CR,XR XR PORTABLE CHEST AP from 12/22/2021 FINDINGS: Single AP portable view. There is cardiomegaly and right coronary artery stent.. The mediastinum is not widened. There is a 1.8 cm peripherally located nodule in the right upper lobe which is stable when compared to chest x-ray and CT scans of 2021. There is a bilateral interstitial pattern and there is a small-moderate size right pleural effusion. IMPRESSION: Cardiomegaly. Coronary artery stent. Interstitial bilateral pattern and small-moderate size right pleural effusion. Findings are most probably consistent with pulmonary edema. Date of Exam: 12/21/19 EXAM: Comprehensive 2D, Doppler, and color-flow Echocardiogram Patient Location: Out-Patient Wet Chemistry Analyst: Dilcia Esteves RDCS (AE) Indications: Dizziness, Inferior AK, LÓPEZ Other Information Study Quality: Fair Conclusion Left Ventricle : The left ventricle is normal size. There is normal left ventricular wall thickness. There is normal LV segmental wall motion. The left ventricular diastolic function is normal. LVEF is 45-50%. Right Ventricle : The right ventricle is normal size. The right ventricular systolic function is normal. There is none of tricuspid regurgitation to estimate RVSP. Atria : The left atrium size is normal. The right atrium size is normal. Valves: There are no hemodynamically significant valvular lesions. Great Vessels : IVC is normal in size and collapses >50% with inspiration. Please see remainder of report for additional details. There are no prior studies available for comparison. Date of Exam: 10/26/24 EXAM: US ABDOMEN LIMITED CLINICAL HISTORY: RUQ, eval GB, liver TECHNIQUE: Ultrasound abdomen performed using standard protocol. COMPARISON: US US ECHOCARDIOGRAM from 12/21/2019 FINDINGS: There is no ascites evident. There is, however, right pleural effusion evident. LIVER: There are no hepatic lesions evident nor dilatation of intrahepatic ducts. GALLBLADDER/BILIARY: There are no gallstones evident and the gallbladder is not distended but the gallbladder wall appears slightly thickened. There is no pericholecystic fluid. Patient was apparently not tender over the gallbladder during scanning today. The common hepatic duct isnot dilated, measuring 3mm at the level of rhona hepatis. PANCREAS: Not entirely visualized due to overlying bowel gas but no obvious abnormalities. RIGHT KIDNEY:No evidence of solid mass, calculus, nor hydronephrosis. No cortical cysts evident. IMPRESSION: 1. There is no evidence of cholelithiasis but the gallbladder wall appears slightly thickened. The gallbladder is not distended and there is no pericholecystic fluid. No dilatation of the CBD. Patient was apparently not tender over the gallbladder during scanning today. If there is suspicion for significant gallbladder disease than consider nuclear HIDA scan to determine if there is a calculus cholecystitis. 2. No other significant ultrasound findings in the right upper quadrant and there is no ascites 3. There is a right pleural effusion noted, as seen on chest x-ray today. Labs 10/26/24 14:35 10/26/24 14:35 Labs: Laboratory Results - last 24 hr 10/26/24 10/26/24 14:35 17:40 WBC 14.83 H RBC 4.01 L Hgb 11.0 L Hct 35.6 L MCV 89 MCH 27.4 MCHC 30.9 L RDW 17.3 H Plt Count 344 MPV 10.4 Immature Gran % 0.9 Neutrophils % 80.8 Lymphocytes % 10.3 Monocytes % 6.8 Eosinophils % 0.5 Basophils % 0.7 Nucleated RBC % 0.0 Absolute Neutrophils 11.98 H Absolute Lymphocytes 1.53 Absolute Monocytes 1.01 H Absolute Eosinophils 0.07 Absolute Basophils 0.10 PT 12.7 H INR 1.3 H APTT 26.1 VBG pH 7.37 VBG pCO2 44 VBG pO2 39 VBG HCO3 26 VBG Total CO2 24 VBG O2 Saturation 65 VBG Base Excess 0 VBG Lactate 2.0 Sodium 141 Potassium 4.2 Chloride 102 Carbon Dioxide 27.1 Anion Gap 11.9 H BUN 59 H Creatinine 2.3 H Est GFR (CKD-EPI 2020) 31.32 Glucose 295 H Calcium 9.7 Magnesium 2.0 Total Bilirubin 1.6 H AST 274 H ALT 96 H Alkaline Phosphatase 311 H Troponin I 24 23 Total Protein 7.4 Albumin 3.0 L TSH 0.29 L Urine Color Yellow Urine Clarity Clear Urine pH 5.5 Ur Specific [place] 1.020 Urine Protein >=300 H Urine Ketones Negative Urine Blood Trace-lysed H Urine Nitrite Negative Urine Bilirubin Negative Urine Urobilinogen 0.2 Ur Leukocyte Esterase Negative Urine RBC 0-2 Urine WBC Negative Ur Epithelial Cells Negative Urine Crystals Negative Urine Bacteria Rare Urine Casts Negative Urine Mucus Trace Urine Other Negative Ur Culture Indicated? No Urine Glucose 100 H Urine Opiates Screen Negative Urine Methadone Screen Negative Ur Barbiturates Screen Negative Ur Tricyclics Screen Negative Ur Amphetamines Screen Negative U Benzodiazepines Scrn Negative Urine Cocaine Screen Negative Ur THC Screen Negative Last Vital Signs Temp 35.9 C L 10/26/24 13:46 Pulse 78 10/26/24 18:17 Resp 20 10/26/24 18:17 BP 196/122 H 10/26/24 18:17 Pulse Ox 87 L 10/26/24 18:17 Time Spent Time spent with Patient: >75 minutes Time was spent: preparing to see the patient(eg.review tests), obtaining and/or reviewing separately otained hiistory, ordering medications,tests, procedures, indepentently interpreting results, counseling the patient and care coordination
[2024-10-26] MEDS: oxyCODONE 5 mg/Acetaminophen 325 mg TAB 2 TAB PO (20:06)
[2024-10-26 20:52] LABS: COVID-19 PCR Negative (Negative); Influenza A PCR Negative (Negative); Influenza B PCR Negative (Negative); RSV PCR Negative (Negative)
[2024-10-26 20:53] LABS: Source Nasopharynx
--- NOTE | 2024-10-26 21:12 | W.PC.ACHO ---
Registration Status: Primary Language: Preferred Language: ED Information & Data Chief Complaint Dizzy/Sync 10/26/24 14:21 Triage Note pt recent d/c from [facility] 10/26/24 13:46 [place] after rehab for surgery for wound and wound vac, d/c on home, PICC removed on Friday, pt with no insulin since d/c r/t medicare issues, insulin to be delivered tomorrow, pt with hallucination (seeing people ) for a day, no falls, has home care, PT/OT, HH RN 3 days a week, VSS, feels dizzy at times, no syncope. Medical / Surgical History (Last Reviewed 10/26/24 @ 19:02 by Ken Neely) Retinal disease, left Uses continuous positive airway pressure (CPAP) ventilation at home Hypotension Dehydration Below-knee amputation of left lower extremity Peripheral neuropathy Cervicalgia Headache, post-traumatic COVID-19 Phantom limb pain Tobacco use Chronic kidney disease, stage III (moderate) Inferior [place] Hx of pancreatitis Exposure to COVID-19 virus Dissection of artery of upper extremity CAD (coronary artery disease) Diabetes mellitus GERD (gastroesophageal reflux disease) HTN (hypertension) Hypercholesterolemia DARIO (obstructive sleep apnea) Obesities, morbid Migraine Neuropathy Diabetic foot ulcer Poorly controlled diabetes mellitus Chest pain (Last Reviewed 10/26/24 @ 19:02 by Ken Neely) Hx of cardiac catheterization Status post below knee amputation of left lower extremity History of lung biopsy History of heart artery stent S/P foot surgery Most Recent Vital Signs Temperature 36.6 C 10/26/24 20:37 Temperature Source Oral 10/26/24 13:46 Pulse 78 10/26/24 20:37 Pulse Rhythm Regular 10/26/24 20:37 Pulse 78 10/26/24 19:17 Respiratory Rate 20 10/26/24 20:37 Respiratory Effort Normal, Non-Labored 10/26/24 20:37 Respiratory Depth Normal 10/26/24 20:37 Respiratory Pattern Normal 10/26/24 20:37 Blood Pressure 156/90 H 10/26/24 20:37 Blood Pressure Mean 183 10/26/24 20:00 Blood Pressure Position Sitting 10/26/24 13:46 Pulse Oximetry 98 10/26/24 20:37 Oxygen Delivery Method Nasal Cannula 10/26/24 20:37 Oxygen Flow Rate 2 10/26/24 20:37 Pain Level 7 10/26/24 20:37 Comment no pain meds 10/26/24 13:46 Allergies Benzodiazepines Allergy (Mild, Verified 10/26/24 14:17) Unknown hyoscyamine Allergy (Mild, Verified 10/26/24 14:18) Unknown Penicillins Allergy (Unknown, Unverified 10/26/24 14:17) tolerated Zosyn on admission 06/2016 pt. doesn't know. insulin glargine, human recombin. a (From Lantus) Adverse Reaction (Intermediate, Unverified 10/26/24 14:17) Diarrhea liraglutide (From Victoza) Adverse Reaction (Intermediate, Unverified 10/26/24 14:17) Diarrhea lorazepam Adverse Reaction (Intermediate, Unverified 10/26/24 14:17) Loopy metformin Adverse Reaction (Intermediate, Unverified 10/26/24 14:17) Diarrhea methadone Adverse Reaction (Intermediate, Unverified 10/26/24 14:17) Loopy pregabalin (From Lyrica) Adverse Reaction (Intermediate, Verified 10/26/24 14:17) Diarrhea gabapentin Adverse Reaction (Mild, Unverified 10/26/24 14:17) loopy morphine Adverse Reaction (Unknown, Unverified 10/26/24 14:17) Flushing when given too fast Precautions Isolation Standard precaution 10/26/24 13:55 IV IV Catheter Type [Right Peripheral IV Forearm] IV Catheter Gauge [Right 18 Forearm] Diet Orders Category Date Time Status Diabetes Consistent CHO/Heart Healthy [DIET] Nutrition 10/27/24 Breakfast Ordered Diagnostics 10/26/24 10/26/24 10/26/24 Range/Units 20:22 20:06 17:40 WBC (4.4-10.8) 10^3/uL RBC (4.36-5.78) 10^6/uL Hgb (13.5-17.5) g/dL Hct (40.0-50.0) % MCV (80-95) fL MCH (27.0-33.0) pg MCHC (32.0-36.0) % RDW (11.8-14.1) % Plt Count (130-400) 10^3/uL MPV (8.0-11.0) fL Immature Gran % % Neutrophils % % Lymphocytes % % Monocytes % % Eosinophils % % Basophils % % Nucleated RBC % (0.0-0.3) % Absolute Neutrophils (1.2-6.7) 10^3/uL Absolute Lymphocytes (1.2-3.4) 10^3/uL Absolute Monocytes (0.1-0.8) 10^3/uL Absolute Eosinophils (0.0-0.7) 10^3/uL Absolute Basophils (0.0-0.2) 10^3/uL PT Pending (9.1-11.1) sec INR Pending (0.9-1.1) APTT (20.6-30.2) sec VBG pH (7.31-7.41) VBG pCO2 (41-51) mmHg VBG pO2 mmHg VBG HCO3 (23-28) mmol/L VBG Total CO2 (24-29) mmol/L VBG O2 Saturation % VBG Base Excess (-2-3) mmol/L VBG Lactate (<or=2.0) mmol/L Sodium (136-145) mmol/L Potassium (3.5-5.1) mmol/L Chloride (98-107) mmol/L Carbon Dioxide (21.0-32.0) mmol/L Anion Gap (3-11) mmol/L BUN (7-18) mg/dL Creatinine (0.70-1.30) mg/dL Est GFR (CKD-EPI 2020) (mL/min/1.73m2) Glucose (74-106) mg/dL Calcium (8.5-10.1) mg/dL Magnesium mg/dL Total Bilirubin (0.2-1.0) mg/dL AST (15-37) U/L ALT (16-63) U/L Alkaline Phosphatase (46-116) U/L Troponin I 23 (<or=76) ng/L NT-Pro-B Natriuret Pep Pending Total Protein (6.4-8.2) g/dL Albumin (3.4-5.0) g/dL TSH (0.36-3.74) uIU/mL Free T4 Pending Urine Color (Yellow) Urine Clarity (Clear) Urine pH (5-8) Ur Specific [place] (1.005-1.025) Urine Protein (Neg-Trace) mg/dL Urine Ketones (Negative) mg/dL Urine Blood (Negative) Urine Nitrite (Negative) Urine Bilirubin (Negative) Urine Urobilinogen (Up to 0.2) mg/dL Ur Leukocyte Esterase (Negative) Urine RBC (0-2) HPF Urine WBC (0-5) HPF Ur Epithelial Cells (Negative) HPF Urine Crystals (Negative) HPF Urine Bacteria (Negative) HPF Urine Casts (Negative) LPF Urine Mucus (Negative) Urine Other (Negative) Ur Culture Indicated? Urine Glucose (Negative) mg/dL Urine Opiates Screen (Negative) Urine Methadone Screen (Negative) Ur Barbiturates Screen (Negative) Ur Tricyclics Screen (Negative) Ur Amphetamines Screen (Negative) U Benzodiazepines Scrn (Negative) Urine Cocaine Screen (Negative) Ur THC Screen (Negative) COVID-19 Source Nasopharynx SARS-CoV-2 (PCR) Negative (Negative) Influenza Type A (PCR) Negative (Negative) Influenza Type B (PCR) Negative (Negative) RSV (PCR) Negative (Negative) Add-On Test Request 10/26/24 10/26/24 10/26/24 Range/Units 17:02 15:33 14:35 WBC 14.83 H (4.4-10.8) 10^3/uL RBC 4.01 L (4.36-5.78) 10^6/uL Hgb 11.0 L (13.5-17.5) g/dL Hct 35.6 L (40.0-50.0) % MCV 89 (80-95) fL MCH 27.4 (27.0-33.0) pg MCHC 30.9 L (32.0-36.0) % RDW 17.3 H (11.8-14.1) % Plt Count 344 (130-400) 10^3/uL MPV 10.4 (8.0-11.0) fL Immature Gran % 0.9 % Neutrophils % 80.8 % Lymphocytes % 10.3 % Monocytes % 6.8 % Eosinophils % 0.5 % Basophils % 0.7 % Nucleated RBC % 0.0 (0.0-0.3) % Absolute Neutrophils 11.98 H (1.2-6.7) 10^3/uL Absolute Lymphocytes 1.53 (1.2-3.4) 10^3/uL Absolute Monocytes 1.01 H (0.1-0.8) 10^3/uL Absolute Eosinophils 0.07 (0.0-0.7) 10^3/uL Absolute Basophils 0.10 (0.0-0.2) 10^3/uL PT 12.7 H (9.1-11.1) sec INR 1.3 H (0.9-1.1) APTT 26.1 (20.6-30.2) sec VBG pH 7.37 (7.31-7.41) VBG pCO2 44 (41-51) mmHg VBG pO2 39 mmHg VBG HCO3 26 (23-28) mmol/L VBG Total CO2 24 (24-29) mmol/L VBG O2 Saturation 65 % VBG Base Excess 0 (-2-3) mmol/L VBG Lactate 2.0 (<or=2.0) mmol/L Sodium 141 (136-145) mmol/L Potassium 4.2 (3.5-5.1) mmol/L Chloride 102 (98-107) mmol/L Carbon Dioxide 27.1 (21.0-32.0) mmol/L Anion Gap 11.9 H (3-11) mmol/L BUN 59 H (7-18) mg/dL Creatinine 2.3 H (0.70-1.30) mg/dL Est GFR (CKD-EPI 2020) 31.32 (mL/min/1.73m2) Glucose 295 H (74-106) mg/dL Calcium 9.7 (8.5-10.1) mg/dL Magnesium 2.0 mg/dL Total Bilirubin 1.6 H (0.2-1.0) mg/dL AST 274 H (15-37) U/L ALT 96 H (16-63) U/L Alkaline Phosphatase 311 H (46-116) U/L Troponin I Pending 24 (<or=76) ng/L NT-Pro-B Natriuret Pep Total Protein 7.4 (6.4-8.2) g/dL Albumin 3.0 L (3.4-5.0) g/dL TSH 0.29 L (0.36-3.74) uIU/mL Free T4 Urine Color Yellow (Yellow) Urine Clarity Clear (Clear) Urine pH 5.5 (5-8) Ur Specific [place] 1.020 (1.005-1.025) Urine Protein >=300 H (Neg-Trace) mg/dL Urine Ketones Negative (Negative) mg/dL Urine Blood Trace-lysed H (Negative) Urine Nitrite Negative (Negative) Urine Bilirubin Negative (Negative) Urine Urobilinogen 0.2 (Up to 0.2) mg/dL Ur Leukocyte Esterase Negative (Negative) Urine RBC 0-2 (0-2) HPF Urine WBC Negative (0-5) HPF Ur Epithelial Cells Negative (Negative) HPF Urine Crystals Negative (Negative) HPF Urine Bacteria Rare (Negative) HPF Urine Casts Negative (Negative) LPF Urine Mucus Trace (Negative) Urine Other Negative (Negative) Ur Culture Indicated? No Urine Glucose 100 H (Negative) mg/dL Urine Opiates Screen Negative (Negative) Urine Methadone Screen Negative (Negative) Ur Barbiturates Screen Negative (Negative) Ur Tricyclics Screen Negative (Negative) Ur Amphetamines Screen Negative (Negative) U Benzodiazepines Scrn Negative (Negative) Urine Cocaine Screen Negative (Negative) Ur THC Screen Negative (Negative) COVID-19 Source SARS-CoV-2 (PCR) (Negative) Influenza Type A (PCR) (Negative) Influenza Type B (PCR) (Negative) RSV (PCR) (Negative) Add-On Test Request Pending 10/26/24 16:55 Blood Culture - Pending Blood 10/26/24 16:45 Blood Culture - Pending Blood [id number] Documentation Fingerstick Glucose Start: 10/26/24 14:03 Freq: .Stat Status: Active Protocol: Activity Type Activity Date Activity User E-sign Co-sign Detail Recorded Client Recorded Date Recorded By Document 10/26/24 18:33 BKG DAEMON(3) [id number] 10/26/24 18:34 BKG DAEMON(4) Intake and Output - 24 Hour Total 10/26/24 13:32 thru 10/26/24 20:37 Output Total 650 Balance -650 Weight 131.5 kg Output: Urine 650 Falls Risk Assessment History of Falls Previous History 10/26/24 20:37 Contributing Factors Confusion,Impairments 10/26/24 20:37 Ambulatory Aids Uses ambulatory device + 10/26/24 20:37 Tubes/Lines W/no contributing factors 10/26/24 20:37 Gait Evaluation W/any additional score 10/26/24 20:37 Cognition No cognitive impairment 10/26/24 20:37 Fall Total Score 81 10/26/24 20:37 Level of Risk Maximum Risk 10/26/24 20:37 Problems (Last Reviewed 10/26/24 @ 19:02 by Ken Neely) Hyperlipidemia (Chronic) Acute hypoxic respiratory failure (Acute) CHF (congestive heart failure) (Chronic) PVD (peripheral vascular disease) (Chronic) Diabetic foot ulcer (Chronic) v v v v v v v v v Sending and/or Receiving Nurses: Please use comment section below to note any information pertinent to the patient hand-off not included above. Information / Comments: Report received from: GABINO Yepez. Patient is alert and oriented but having hallucinations, knows they are hallucinations. He is in sinus rhythm, on 2L NC which is not baseline for him. He has a home wound vac in place. Just had oxycodone for pain. Blood cultures drawn.
[2024-10-26] MEDS: CEFEPIME 1 GM in Normal Saline 50 ML IVPB (21:19)
[2024-10-26] MEDS: Enoxaparin 30 MG/0.3 ML SYR SC (21:20)
[2024-10-26] MEDS: Metoprolol CR 100 MG TABCR PO (21:20)
[2024-10-26] MEDS: Normal Saline Flush 10 ML SYR IVP (21:20)
[2024-10-26] MEDS: DULoxetine 30 MG CAP PO (21:20)
[2024-10-26] MEDS: Albuterol 2.5 MG/3 ML INH SOLN VIAL UPD (21:49)
[2024-10-26 22:15] LABS: INR 1.2 (0.9-1.1); Prothrombin Time 12.3 sec (9.1-11.1)
[2024-10-26 22:30] LABS: Troponin I 26 ng/L (<or=76)
[2024-10-26 22:48] LABS: FREE T4 1.47 ng/dL (0.76-1.46); NT-proBNP 12633 pg/mL (<300)
[2024-10-27] VITALS (10 sets, daily range): BP systolic 126–154; BP diastolic 59–83; PULSE 67–78; RESP 9–20; TEMP 36.2–36.8; O2SAT 81–96
[2024-10-27] MEDS: Acetaminophen 325 MG TAB PO ×2 (04:25→20:46)
[2024-10-27] MEDS: CEFEPIME 1 GM in Normal Saline 50 ML IVPB (04:26)
[2024-10-27 06:24] LABS: HCT 33.9 % (40.0-50.0); HGB 10.4 g/dL (13.5-17.5); MCH 27.2 pg (27.0-33.0); MCHC 30.7 % (32.0-36.0); MCV 89 fL (80-95); MPV 10.6 fL (8.0-11.0); Platelet Count 306 10^3/uL (130-400); RBC 3.83 10^6/uL (4.36-5.78); RDW 17.4 % (11.8-14.1); RDW-SD 56.2 fL
[2024-10-27 06:41] LABS: ALT 108 U/L (16-63); AST 240 U/L (15-37); Albumin 2.7 g/dL (3.4-5.0); Alkaline Phosphatase 273 U/L (46-116); Anion Gap 12.5 mmol/L (3-11); BUN 63 mg/dL (7-18); CO2 26.5 mmol/L (21.0-32.0); CREATININE 2.4 mg/dL (0.70-1.30); Calcium 9.1 mg/dL (8.5-10.1); Chloride 103 mmol/L (98-107); Estimated GFR 29.76 (mL/min/1.73m2); Glucose 233 mg/dL (74-106); Potassium 4.2 mmol/L (3.5-5.1); Sodium 142 mmol/L (136-145); Total Protein 6.7 g/dL (6.4-8.2)
[2024-10-27] MEDS: Insulin Aspart 300 UNITS/3 ML PEN SC ×4 (07:48→20:47)
[2024-10-27] MEDS: DULoxetine 30 MG CAP PO ×2 (07:55→20:45)
[2024-10-27] MEDS: Metoprolol CR 100 MG TABCR PO ×2 (07:56→20:46)
[2024-10-27] MEDS: Normal Saline Flush 10 ML SYR IVP ×3 (07:59→20:46)
[2024-10-27] MEDS: Furosemide 100 MG/10 ML VIAL 40 MG IVP ×2 (08:00→16:32)
[2024-10-27] MEDS: amLODIPine 5 MG TAB PO (08:15)
[2024-10-27] MEDS: Isosorbide Mononitrate 60 MG TABCR PO (08:15)
[2024-10-27] MEDS: Aspirin E.C. 81 MG TABEC PO (08:15)
[2024-10-27] MEDS: Atorvastatin 40 MG TAB PO (08:17)
[2024-10-27] MEDS: Tamsulosin 0.4 MG CAPCR PO (08:18)
[2024-10-27] MEDS: Pantoprazole 40 MG TABCR PO (08:18)
[2024-10-27] MEDS: Tiotropium Bromide-Respimat 10 PUFF INH 2 PUFF IH (08:32)
[2024-10-27] MEDS: Budesonide/Formoterol 160/4.5 6 GM 60 PUFF INH IH ×2 (08:32→20:02)
--- NOTE | 2024-10-27 09:25 | INITIAL_ITS ---
Date of service: 10/27/24 Time of Service: 09: Care Management Initial Assmt Initial Assessment Reason for Hospitalization: Respiratory failure - CHF Functional Status/Living Situation Patient Presentation: Ed was dozing in bed when CM met with him. He was easily awakened by calling his name and engaged well with CM. Ed was admitted with CHF. He had recently been discharged from [facility] (5 days prior to admission) after a one month stay. He informed the provider that upon discharge that there were issues with some of his routine medications and that may have contributed to this exacerbation of his CHF. Ed lives in a mobile home in [place] with his Helio. He has one adult son who lives in [place] with whom he has a close relationship. 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 He is independent with ADLs but does use a cane or walker depending on his activity. Ed receives home health services through [facility]. He has nursing on [facility] for dressing changes and PT twice a week. When asked, Ed stated that he has known that he has CHF for some time. He is aware that he needs to weigh himself but admitted he does not do it every day. A referral to the [facility] for CHF education may be helpful. Town of Residence: [place] Resides with: Spouse (Imani Jones) Significant Other/Family: Local (son in [place]) Employment Status: Disabled Instrumental Activities of Daily Living (ADLs): Independent Medications Medication Management: No Issues/Barriers identified Physical Functioning/Mobility Assistive Device: walker and cane Advance Directives Advance Directives: Do you have an Advance Directive: Y 04/13/21 11:18 AD On File at [facility]: N 04/13/21 11:18 Date Asked 08/30/24 08/30/24 22:03 AD Date Reviewed COLST On File at [facility] COLST Date Scanned Code Status Resuscitation Status Full Code Portal Pt does not currently have a portal and education provided: Yes Insurance Coverage/Financial Issues Insurance: Medicare Self pay Care Team Visit Care Team Role Provider Type Angelito Carmen MD MD [facility] STAFF PHYSICIAN Kalli Gamble MD Primary Care Provider [facility] STAFF PHYSICIAN Corine Wiggins MD Emergency Provider [facility] STAFF PHYSICIAN Ken Neely Admit Provider NON-[facility] STAFF PHYSICIAN Attending Provider Discharge Potential Discharge Needs: PCP F/U Appt Anticipated Barriers to Discharge: None Identified Patient/Family Education Needs: Review discharge instructions, discuss Ask Me Three Transportation: Private vehicle Plan: Anticipate Ed will be discharged home with a resumption of home health services for RN and PT, when medically stable. He will follow up with his community providers and plan of care and transport with family. CM will follow and continue to support discharge planning efforts. Social Determinants of Health Screening Social Determinants of Health last assessed: 10/27/24 Will the Patient Participate in the Screening?: Yes Do you worry about having a steady place to live?: no Problems where you live: no known problems In the past 12 months, have you had to go without electric, gas, oil or water in your home?: no Have you or anyone in your house had to go without enough food to eat?: no Has lack of transportation kept you from medical appointments or from doing things needed for daily living?: yes Has anyone in your life made you feel unsafe or unsupported?: no How hard is it for you to pay for the very basics like food, housing, medical care, and heating? Would you say it is:: Not hard at all Do you want help finding or keeping work or a job?: I do not need or want help If for any reason you need help with day-to-day activities such as bathing, preparing meals, shopping, managing finances, etc., do you get the help you need?: I get all the help I need How often do you feel lonely or isolated from those around you?: Sometimes Do you speak a language other than Hungarian at home?: No Does the patient want assistance with any of the above?: No Health Related Social Needs Health related social needs: transportation insecurity (Z59.82) and feeling lonely/isolated (Z60.8) PFSH All Active Problems (Updated 10/27/24 @ 09:48 by Angelito Carmen MD) Hx of left BKA (Acute) Acute exacerbation of CHF (congestive heart failure) (Acute) Hyperlipidemia (Chronic) Acute hypoxic respiratory failure (Acute) Hyperkalemia (Acute) Surgical wound infection (Acute) CHF (congestive heart failure) (Chronic) Acute kidney injury superimposed on CKD (Acute) Severe sepsis (Acute) PVD (peripheral vascular disease) (Chronic) Diabetes (Chronic) Diabetic foot ulcer (Chronic) Cellulitis of right ankle (Acute) No-show for appointment (Acute) Medical History Retinal disease, left Uses continuous positive airway pressure (CPAP) ventilation at home Hypotension Dehydration Below-knee amputation of left lower extremity Peripheral neuropathy Cervicalgia Headache, post-traumatic COVID-19 Phantom limb pain Tobacco use Chronic kidney disease, stage III (moderate) Inferior [place] 2006 Hx of pancreatitis Exposure to COVID-19 virus 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 CAD (coronary artery disease) multiple stents 2006 Diabetes mellitus GERD (gastroesophageal reflux disease) HTN (hypertension) Hypercholesterolemia DARIO (obstructive sleep apnea) Obesities, morbid Migraine Neuropathy Diabetic foot ulcer Poorly controlled diabetes mellitus Chest pain Surgical History Hx of cardiac catheterization Status post below knee amputation of left lower extremity History of lung biopsy History of heart artery stent S/P foot surgery Social History Smoking/Tobacco Use Status: Former Tobacco Use Quit Date: 05/30/24 Smoking risk assessment performed?: Yes Alcohol Intake: never Drug use: Never Substance use type: does not use Housing: house Do you feel safe at home: Yes Do you feel safe in your relationship?: Yes
--- NOTE | 2024-10-27 09:47 | PGE_ITS ---
Date of Service Date of service: 10/27/24 Time of Service: 09:47 Assessment and Plan Assessment and plan (1) Acute exacerbation of CHF (congestive heart failure): Status: Acute Assessment and plan: - Known history of CHF though do not have most recent echocardiogram at this time -Had recent prolonged hospitalization with subsequent stay at subacute rehab and reportedly was discharged from rehab due to insurance issues without appropriate home care or medications being set up -Therefore patient was without medications including losartan and Lasix -Chest x-ray showed pulmonary edema and patient required supplemental oxygen as well as an elevated proBNP of 12,633 -Patient was initially aggressively diuresed with 80 mg IV Lasix and has had significant improvement in his urine output, Lasix not changed to 40 mg IV twice daily as of a.m. 10/27/2024 -Continue diuresis, strict I's and O's (2) Acute hypoxic respiratory failure: Start date: 10/26/24 Status: Acute Assessment and plan: - Secondary to heart failure exacerbation resulting in pulmonary edema as noted above -Patient required up to 2 L nasal cannula -Transition to room air as of a.m. for 09/16/2024 (3) Diabetic foot ulcer: Status: Chronic Assessment and plan: - Continue wound care, though no acute infection noted and antibiotics have been discontinued (4) Diabetes mellitus: Assessment and plan: - Sliding scale insulin, carb consistent diet (5) PVD (peripheral vascular disease): Status: Chronic Assessment and plan: -Continue home Plavix and aspirin (6) Chronic kidney disease, stage III (moderate): Assessment and plan: -At baseline, follow-up a.m. BMP (7) HTN (hypertension): Assessment and plan: -Continue outpatient medical therapy. (8) Hyperlipidemia: Status: Chronic Assessment and plan: -Continue outpatient medical therapy. (9) CAD (coronary artery disease): Assessment and plan: -No exacerbation with monitoring while hospitalized. (10) DARIO (obstructive sleep apnea): Assessment and plan: -Continue home CPAP treatment. (11) Hx of left BKA: Status: Acute Assessment and plan: - As a result of peripheral vascular disease as noted above Subjective Subjective Interval history since last seen: Patient states that he is feeling much better since admission and he appreciates the care and logistical support that he is receiving and helping him to have safe and appropriate discharge when he is ultimately ready to go home. Exam Narrative Exam Narrative: Well but fatigued appearing gentleman laying in bed in no acute distress, ANO x 4, heart regular rhythm, lungs clear to auscultation bilaterally, abdomen soft, nontender, nondistended, left BKA with trace pitting edema at the stump, and +1 pitting edema in right lower extremity to the mid argueta Objective Last Vital Signs Temp 97.9 F 10/27/24 07:26 Pulse 75 10/27/24 07:26 Resp 18 10/27/24 07:26 BP 137/67 10/27/24 07:26 Pulse Ox 89 L 10/27/24 08:40 Laboratory Results - last 24 hr 10/26/24 10/26/24 10/26/24 14:35 15:33 17:40 WBC 14.83 H RBC 4.01 L Hgb 11.0 L Hct 35.6 L MCV 89 MCH 27.4 MCHC 30.9 L RDW 17.3 H Plt Count 344 MPV 10.4 Immature Gran % 0.9 Neutrophils % 80.8 Lymphocytes % 10.3 Monocytes % 6.8 Eosinophils % 0.5 Basophils % 0.7 Nucleated RBC % 0.0 Absolute Neutrophils 11.98 H Absolute Lymphocytes 1.53 Absolute Monocytes 1.01 H Absolute Eosinophils 0.07 Absolute Basophils 0.10 PT 12.7 H INR 1.3 H APTT 26.1 VBG pH 7.37 VBG pCO2 44 VBG pO2 39 VBG HCO3 26 VBG Total CO2 24 VBG O2 Saturation 65 VBG Base Excess 0 VBG Lactate 2.0 Sodium 141 Potassium 4.2 Chloride 102 Carbon Dioxide 27.1 Anion Gap 11.9 H BUN 59 H Creatinine 2.3 H Est GFR (CKD-EPI 2020) 31.32 Glucose 295 H Calcium 9.7 Magnesium 2.0 Total Bilirubin 1.6 H AST 274 H ALT 96 H Alkaline Phosphatase 311 H Troponin I 24 23 NT-Pro-B Natriuret Pep Total Protein 7.4 Albumin 3.0 L TSH 0.29 L Free T4 Urine Color Yellow Urine Clarity Clear Urine pH 5.5 Ur Specific [place] 1.020 Urine Protein >=300 H Urine Ketones Negative Urine Blood Trace-lysed H Urine Nitrite Negative Urine Bilirubin Negative Urine Urobilinogen 0.2 Ur Leukocyte Esterase Negative Urine RBC 0-2 Urine WBC Negative Ur Epithelial Cells Negative Urine Crystals Negative Urine Bacteria Rare Urine Casts Negative Urine Mucus Trace Urine Other Negative Ur Culture Indicated? No Urine Glucose 100 H Urine Opiates Screen Negative Urine Methadone Screen Negative Ur Barbiturates Screen Negative Ur Tricyclics Screen Negative Ur Amphetamines Screen Negative U Benzodiazepines Scrn Negative Urine Cocaine Screen Negative Ur THC Screen Negative COVID-19 Source SARS-CoV-2 (PCR) Influenza Type A (PCR) Influenza Type B (PCR) RSV (PCR) Add-On Test Request TNP 10/26/24 10/26/24 10/27/24 20:06 21:36 05:40 WBC 15.30 H RBC 3.83 L Hgb 10.4 L Hct 33.9 L MCV 89 MCH 27.2 MCHC 30.7 L RDW 17.4 H Plt Count 306 MPV 10.6 Immature Gran % Neutrophils % Lymphocytes % Monocytes % Eosinophils % Basophils % Nucleated RBC % Absolute Neutrophils Absolute Lymphocytes Absolute Monocytes Absolute Eosinophils Absolute Basophils PT 12.3 H INR 1.2 H APTT VBG pH VBG pCO2 VBG pO2 VBG HCO3 VBG Total CO2 VBG O2 Saturation VBG Base Excess VBG Lactate Sodium 142 Potassium 4.2 Chloride 103 Carbon Dioxide 26.5 Anion Gap 12.5 H BUN 63 H Creatinine 2.4 H Est GFR (CKD-EPI 2020) 29.76 Glucose 233 H Calcium 9.1 Magnesium 2.0 Total Bilirubin 1.0 AST 240 H ALT 108 H Alkaline Phosphatase 273 H Troponin I 26 NT-Pro-B Natriuret Pep 11676 H Total Protein 6.7 Albumin 2.7 L TSH Free T4 1.47 H Urine Color Urine Clarity Urine pH Ur Specific [place] Urine Protein Urine Ketones Urine Blood Urine Nitrite Urine Bilirubin Urine Urobilinogen Ur Leukocyte Esterase Urine RBC Urine WBC Ur Epithelial Cells Urine Crystals Urine Bacteria Urine Casts Urine Mucus Urine Other Ur Culture Indicated? Urine Glucose Urine Opiates Screen Urine Methadone Screen Ur Barbiturates Screen Ur Tricyclics Screen Ur Amphetamines Screen U Benzodiazepines Scrn Urine Cocaine Screen Ur THC Screen COVID-19 Source Nasopharynx SARS-CoV-2 (PCR) Negative Influenza Type A (PCR) Negative Influenza Type B (PCR) Negative RSV (PCR) Negative Add-On Test Request Time Spent with Patient Time Spent with Patient: >50 minutes Time was spent: preparing to see the patient(eg.review tests), obtaining and/or reviewing separately otained hiistory, ordering medications,tests, procedures, referring, communicating with other health child care supervisor, indepentently interpreting results, counseling the patient and care coordination
[2024-10-27] MEDS: Enoxaparin 40 MG/0.4 ML SYR SC ×2 (11:35→20:47)
--- NOTE | 2024-10-27 18:03 | NUR.NOTE ---
This nurse has reviewed the charting and agree with FITZ LEWIS's findings. Nursing Note:
[2024-10-27] MEDS: Albuterol 2.5 MG/3 ML INH SOLN VIAL UPD (19:44)
[2024-10-27] MEDS: Docusate Sodium 100 MG CAP PO (20:46)
[2024-10-28 02:28] VITALS: BP 142/81; PULSE 72; RESP 19; TEMP 36.7; O2SAT 96
[2024-10-28 06:35] LABS: HGB 10.3 g/dL (13.5-17.5); MCH 26.8 pg (27.0-33.0); MCHC 30.3 % (32.0-36.0); MCV 89 fL (80-95); MPV 10.6 fL (8.0-11.0); Platelet Count 295 10^3/uL (130-400); RBC 3.84 10^6/uL (4.36-5.78); RDW 17.1 % (11.8-14.1); WBC 15.03 10^3/uL (4.4-10.8)
[2024-10-28 06:57] LABS: ALT 96 U/L (16-63); AST 118 U/L (15-37); Albumin 2.6 g/dL (3.4-5.0); Alkaline Phosphatase 294 U/L (46-116); BUN 64 mg/dL (7-18); Bilirubin, Total 0.8 mg/dL (0.2-1.0); CREATININE 2.6 mg/dL (0.70-1.30); Calcium 9.2 mg/dL (8.5-10.1); Chloride 104 mmol/L (98-107); Estimated GFR 27.04 (mL/min/1.73m2); Glucose 230 mg/dL (74-106); Magnesium 1.9 mg/dL; Sodium 140 mmol/L (136-145); Total Protein 6.6 g/dL (6.4-8.2)
[2024-10-28 08:05] VITALS: BP 155/83; PULSE 76; RESP 16; TEMP 36.3; O2SAT 92
[2024-10-28] MEDS: Isosorbide Mononitrate 60 MG TABCR PO (08:11)
[2024-10-28] MEDS: Tamsulosin 0.4 MG CAPCR PO (08:11)
[2024-10-28] MEDS: Aspirin E.C. 81 MG TABEC PO (08:11)
[2024-10-28] MEDS: Atorvastatin 40 MG TAB PO (08:12)
[2024-10-28] MEDS: Pantoprazole 40 MG TABCR PO (08:12)
[2024-10-28] MEDS: DULoxetine 30 MG CAP PO ×2 (08:12→19:34)
[2024-10-28] MEDS: Metoprolol CR 100 MG TABCR PO ×2 (08:13→19:34)
[2024-10-28] MEDS: amLODIPine 5 MG TAB PO (08:13)
[2024-10-28] MEDS: Insulin Aspart 300 UNITS/3 ML PEN SC ×4 (08:13→19:35)
[2024-10-28] MEDS: Acetaminophen 325 MG TAB PO ×2 (08:16→19:34)
[2024-10-28] MEDS: Furosemide 100 MG/10 ML VIAL 40 MG IVP (08:19)
[2024-10-28] MEDS: Normal Saline Flush 10 ML SYR IVP ×3 (08:19→19:35)
[2024-10-28] MEDS: Tiotropium Bromide-Respimat 10 PUFF INH 2 PUFF IH (08:56)
[2024-10-28] MEDS: Budesonide/Formoterol 160/4.5 6 GM 60 PUFF INH IH ×2 (08:57→19:38)
--- NOTE | 2024-10-28 09:11 | W.PM.PROGNOT ---
Date of Service Date of service: 10/28/24 Time of Service: 09:11 Assessment and Plan Assessment and plan (1) Acute exacerbation of CHF (congestive heart failure): Status: Acute Assessment and plan: - Known history of CHF, TTE 10/27 showed EF 20-25%, decreased from previous in Aug -Had recent prolonged hospitalization with subsequent stay at subacute rehab and reportedly was discharged from rehab due to insurance issues without appropriate home care or medications being set up -Therefore patient was without medications including losartan and Lasix -Chest x-ray showed pulmonary edema and patient required supplemental oxygen as well as an elevated proBNP of 12,633 -Patient was initially aggressively diuresed with 80 mg IV Lasix and has had significant improvement in his urine output, Lasix not changed to 40 mg IV twice daily as of a.m. 10/27/2024 -Continue diuresis, strict I's and O's (2) Acute hypoxic respiratory failure: Start date: 10/26/24 Status: Acute Assessment and plan: -Secondary to heart failure exacerbation resulting in pulmonary edema as noted above -Patient required up to 2 L nasal cannula -Transition to room air as of a.m. for 09/16/2024 during the day, appears to still need O2 HS, rec sleep study at [place] (3) Diabetic foot ulcer: Status: Chronic Assessment and plan: - Continue wound care, though no acute infection noted and antibiotics have been discontinued (4) PVD (peripheral vascular disease): Status: Chronic Assessment and plan: -Continue home Plavix and aspirin (5) Hyperlipidemia: Status: Chronic Assessment and plan: -Continue outpatient medical therapy. (6) Hx of left BKA: Status: Acute Assessment and plan: - As a result of peripheral vascular disease as noted above Exam Narrative Exam Narrative: Well but fatigued appearing gentleman laying in bed in no acute distress, ANO x 4, heart regular rhythm, lungs clear to auscultation bilaterally, abdomen soft, nontender, nondistended, left BKA with trace pitting edema at the stump, and +1 pitting edema in right lower extremity to the mid argueta Objective Last Vital Signs Temp 97.3 F L 10/28/24 08:05 Pulse 76 10/28/24 08:05 Resp 16 10/28/24 08:05 BP 155/83 H 10/28/24 08:05 Pulse Ox 92 10/28/24 08:05 Laboratory Results - last 24 hr 10/28/24 06:25 WBC 15.03 H RBC 3.84 L Hgb 10.3 L Hct 34.0 L MCV 89 MCH 26.8 L MCHC 30.3 L RDW 17.1 H Plt Count 295 MPV 10.6 Sodium 140 Potassium 4.0 Chloride 104 Carbon Dioxide 25.0 Anion Gap 11.0 BUN 64 H Creatinine 2.6 H Est GFR (CKD-EPI 2020) 27.04 Glucose 230 H Calcium 9.2 Magnesium 1.9 Total Bilirubin 0.8 AST 118 H ALT 96 H Alkaline Phosphatase 294 H Total Protein 6.6 Albumin 2.6 L Time Spent with Patient Time Spent with Patient: >50 minutes Time was spent: preparing to see the patient(eg.review tests), obtaining and/or reviewing separately otained hiistory, ordering medications,tests, procedures, referring, communicating with other health nurse wound care, indepentently interpreting results, counseling the patient and care coordination
[2024-10-28] MEDS: Enoxaparin 40 MG/0.4 ML SYR SC ×2 (10:52→19:46)
[2024-10-28 11:15] VITALS: BP 128/55; PULSE 76; RESP 19; TEMP 36.4; O2SAT 92
--- NOTE | 2024-10-28 14:30 | CHAPLAIN ---
I assisted Todtammie in completing an Advance Directive. Kelsy in Care Management made copies for him and faxed copies to the [place] [facility] and to his PCP at [facility].
--- NOTE | 2024-10-28 15:04 | CMPROGNOTE_ITS ---
Date of service: 10/28/24 Time of Service: 15:04 Care Management Progress Note Progress Note Text Progress Note Text: Yo was awake and lying in bed each time CM met with him. He is planning to discharge home tomorrow with a resumption of [facility] RN/PT services. He will go by RCT w/c van (may need bariatric w/c and van to accommodate.)PT consult is ordered. Yo completed Advanced Directives during this admission. CM will follow. Discharge Potential Discharge Needs: PCP F/U Appt Anticipated Barriers to Discharge: None Identified Patient/Family Education Needs: Review discharge instructions, discuss Ask Me Three Transportation: RCT ( ) RCT Transportation: Wheel chair van Plan: Anticipate Ed will be discharged home with a resumption of home health services for RN and PT, when medically stable. He will follow up with his community providers and plan of care and transport via RCT W/C van (? Bariatric.) CM will follow and continue to support discharge planning efforts. Social Determinants of Health Screening Social Determinants of Health last assessed: 10/28/24 Will the Patient Participate in the Screening?: Yes Do you worry about having a steady place to live?: no Problems where you live: no known problems In the past 12 months, have you had to go without electric, gas, oil or water in your home?: no Have you or anyone in your house had to go without enough food to eat?: no Has lack of transportation kept you from medical appointments or from doing t hings needed for daily living?: yes Has anyone in your life made you feel unsafe or unsupported?: no How hard is it for you to pay for the very basics like food, housing, medical care, and heating? Would you say it is:: Not hard at all Do you want help finding or keeping work or a job?: I do not need or want help If for any reason you need help with day-to-day activities such as bathing, preparing meals, shopping, managing finances, etc., do you get the help you need?: I get all the help I need How often do you feel lonely or isolated from those around you?: Sometimes Do you speak a language other than Moldovan at home?: No Does the patient want assistance with any of the above?: No Health Related Social Needs Health related social needs: transportation insecurity (Z59.82) and feeling lonely/isolated (Z60.8)
[2024-10-28 15:27] VITALS: BP 146/88; PULSE 79; RESP 17; TEMP 36.3; O2SAT 95
--- NOTE | 2024-10-28 15:44 | W.NUTRFU ---
Date of service: 10/28/24 Time of Service: 13:00 Nutrition Note NOTE: Yo is 64yo male admitted for exac of CHF and hypoxic resp failure. His PMH is sifnificant for DMII with PVD and hx of L BKA - has chronic foot ulcer, CKDIII with current GFR at 27, CAD, DARIO, HTN, HLD. Has hx of low vitamin D with no current supplement on board. Lytes are wnl today. Total protein lab today wnl and albumin at 2.6 more associated with inflammation as protein intake assessed as adequate (has been requesting double meat entrees and had 100% po intake at most meals). Uses omni pod insulin pump at home for basal insulin and mealtime insulin and states his average A1c has been 7.5-7.8 lately. States he recently changed carb ratio from 1u:5g to 1u:8g CHO. This admission ordred for moderate sliding scale novolog for corrections at meals and 22:00. Glucose has been above 200 fasting everymorning this admission - fingersticks >200 except for one meal so far. REcommendations: -Vitamin D lab d/t deficiency hx and current risk for deficiency. If no lab would recommend 5,000IU per day for adequate intake and to aid in wound healing of foot ulcer. -220mg zinc sulfate for wound healing and 500mg vitamin C BID for wound healing. -Recommend basal insulin initiated at 20units of glagine HS and moving to resistant scale of fingerstick continue to >200 at meals. Will continue to support protein intake at meals/supplements and monitor glucose/labs, weight, po intake. Pt declined education today but maybe receptive as outpatient - will check back in closer to discharge to offer again. Time Spent in Nutritional Counseling and Treatment: 10 min
[2024-10-28] MEDS: Furosemide 40 MG TAB PO (16:33)
[2024-10-28] MEDS: Albuterol 2.5 MG/3 ML INH SOLN VIAL UPD (19:35)
[2024-10-28 19:45] VITALS: BP 134/113; PULSE 96; RESP 22; TEMP 36.6; O2SAT 91
[2024-10-28 23:18] VITALS: BP 128/76; PULSE 77; RESP 20; TEMP 36.5; O2SAT 93
[2024-10-29] VITALS (9 sets, daily range): BP systolic 132–163; BP diastolic 66–92; PULSE 76–81; RESP 3–20; TEMP 35.5–36.6; O2SAT 91–96
[2024-10-29 06:33] LABS: HCT 34.7 % (40.0-50.0); HGB 10.4 g/dL (13.5-17.5); MCH 26.8 pg (27.0-33.0); MCV 89 fL (80-95); Platelet Count 264 10^3/uL (130-400); RBC 3.88 10^6/uL (4.36-5.78); RDW 17.2 % (11.8-14.1); RDW-SD 56.7 fL; WBC 16.62 10^3/uL (4.4-10.8)
[2024-10-29 08:01] LABS: ALT 100 U/L (16-63); AST 68 U/L (15-37); Albumin 2.6 g/dL (3.4-5.0); Alkaline Phosphatase 300 U/L (46-116); Anion Gap 9.8 mmol/L (3-11); BUN 62 mg/dL (7-18); Bilirubin, Total 0.7 mg/dL (0.2-1.0); CO2 25.2 mmol/L (21.0-32.0); CREATININE 2.9 mg/dL (0.70-1.30); Calcium 8.9 mg/dL (8.5-10.1); Chloride 102 mmol/L (98-107); Estimated GFR 23.72 (mL/min/1.73m2); Glucose 289 mg/dL (74-106); Magnesium 1.8 mg/dL; Potassium 4.2 mmol/L (3.5-5.1); Sodium 137 mmol/L (136-145); Total Protein 6.8 g/dL (6.4-8.2)
[2024-10-29] MEDS: Budesonide/Formoterol 160/4.5 6 GM 60 PUFF INH IH ×2 (08:04→20:26)
[2024-10-29] MEDS: Tiotropium Bromide-Respimat 10 PUFF INH 2 PUFF IH (08:04)
[2024-10-29] MEDS: Pantoprazole 40 MG TABCR PO (08:09)
[2024-10-29] MEDS: Insulin Aspart 300 UNITS/3 ML PEN SC ×4 (08:10→22:06)
--- NOTE | 2024-10-29 09:09 | PDOC.CMPRO ---
Date of service: 10/29/24 Time of Service: 09:09 Care Management Progress Note Progress Note Text Progress Note Text: Yo was awake and lying in bed when CM met with him. He is planning to discharge home when medically ready with a resumption of [facility] RN/PT services. He will go by RCT w/c van (may need bariatric w/c and van to accommodate.) Yo had a prolonged hospitalization at [facility] and was recently discharged from [facility]. He has a wound vac and a wound consult is ordered. Yo completed Advanced Directives during this admission. CM will follow. Discharge Potential Discharge Needs: PCP F/U Appt Anticipated Barriers to Discharge: None Identified Patient/Family Education Needs: Review discharge instructions, discuss Ask Me Three Transportation: RCT RCT Transportation: Wheel chair van Plan: Anticipate Ed will be discharged home with a resumption of home health services for RN and PT, when medically stable. He will follow up with his community providers and plan of care and transport via RCT W/C van (? Bariatric.) CM will follow and continue to support discharge planning efforts. Social Determinants of Health Screening Social Determinants of Health last assessed: 10/29/24 Will the Patient Participate in the Screening?: Yes Do you worry about having a steady place to live?: no Problems where you live: no known problems In the past 12 months, have you had to go without electric, gas, oil or water in your home?: no Have you or anyone in your house had to go without enough food to eat?: no Has lack of transportation kept you from medical appointments or from doing things needed for daily living?: yes Has anyone in your life made you feel unsafe or unsupported?: no How hard is it for you to pay for the very basics like food, housing, medical care, and heating? Would you say it is:: Not hard at all Do you want help finding or keeping work or a job?: I do not need or want help If for any reason you need help with day-to-day activities such as bathing, preparing meals, shopping, managing finances, etc., do you get the help you need?: I get all the help I need How often do you feel lonely or isolated from those around you?: Sometimes Do you speak a language other than Tunisian at home?: No Does the patient want assistance with any of the above?: No Health Related Social Needs Health related social needs: food insecurity (Z59.41), transportation insecurity (Z59.82) and feeling lonely/isolated (Z60.8)
[2024-10-29] MEDS: Enoxaparin 40 MG/0.4 ML SYR SC ×2 (09:51→22:07)
[2024-10-29] MEDS: Normal Saline Flush 10 ML SYR IVP ×2 (09:52→19:55)
[2024-10-29] MEDS: Isosorbide Mononitrate 60 MG TABCR PO (09:53)
[2024-10-29] MEDS: Atorvastatin 40 MG TAB PO (09:53)
[2024-10-29] MEDS: Aspirin E.C. 81 MG TABEC PO (09:53)
[2024-10-29] MEDS: Tamsulosin 0.4 MG CAPCR PO (09:53)
[2024-10-29] MEDS: Metoprolol CR 100 MG TABCR PO ×2 (09:53→19:55)
[2024-10-29] MEDS: DULoxetine 30 MG CAP PO ×2 (09:54→19:55)
[2024-10-29] MEDS: Furosemide 40 MG TAB PO ×2 (09:54→16:20)
[2024-10-29] MEDS: amLODIPine 5 MG TAB PO (09:54)
--- NOTE | 2024-10-29 10:32 | PT.INIE ---
PT Notes Visit Reasons: Acute hypoxic respiratory failure,CHF exacerbation Physical Therapy Inpatient Initial Evaluation Date: 10/29/2024 Referring Doctor:Dr Carmen PT Orders: PT CONSULT:PT evaluation and treatment Precautions: Patial Weight Bearing RLE, Left BKA, wound vac RLE, Lanza, Fall Risk, Oxygen at night and naps Patient Profile/Admitting Diagnosis: Todward Ed is a 64 yo male presented to ED [facility]. Pt presented with increased SOB and confusion. Pt diagnosed with Acute CHF, Acute Hypoxic Respiratory failure and pulmonary edema requiring 2 L/Min Supplementary oxygen. PMHX: Hyperlipidemia (Chronic) Acute hypoxic respiratory failure (Acute) Hyperkalemia (Acute) Surgical wound infection (Acute) CHF (congestive heart failure) (Chronic) Acute kidney injury superimposed on CKD (Acute) Severe sepsis (Acute) PVD (peripheral vascular disease) (Chronic) Diabetes (Chronic) Diabetic foot ulcer (Chronic) Cellulitis of right ankle (Acute) No-show for appointment (Acute) Medical History Retinal disease, left Uses continuous positive airway pressure (CPAP) ventilation at home Hypotension Dehydration Below-knee amputation of left lower extremity Peripheral neuropathy Cervicalgia Headache, post-traumatic COVID-19 Phantom limb pain Tobacco use Chronic kidney disease, stage III (moderate) Inferior [place] 2007Hx of pancreatitis Exposure to COVID-19 virus 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CAD (coronary artery disease) multiple stents 2006 Diabetes mellitus GERD (gastroesophageal reflux disease) HTN (hypertension) Hypercholesterolemia DARIO (obstructive sleep apnea) Obesities, morbid Migraine Neuropathy Diabetic foot ulcer Poorly controlled diabetes mellitus Chest pain Surgical History Hx of cardiac catheterization Status post below knee amputation of left lower extremity History of lung biopsy History of heart artery stent S/P foot surgery Social History/Home Situation: Pt resides with his in single family home. He is having a ramp installed (possibly on 10/29/2024 weather permitting). He is Independent transfers with FWW and utilizes wheelchair as primary mode of locomotion. He is independent don/doff prosthetic which he has had for 8 years. Equipment Owned/DME: Left BK prosthesis, wheelchair with legrests, foam cushion, FWW, slide board, shower bench, commode recliner Subjective:Pt reports he is aware he is only allowed to put partial weight on his right foot for transfers and needs to use the wheelchair to get to destinations. Pt states all he wants to work on is his upper body strength as he feels like he has lost alot of strength noting his transfers are harder than they use to be. Objective: [] General Observation: older appearing male sidelying in bed, wound vac to right foot, lanza catheter with hematuria present. (Nursing aware) Mental Status: Alert oriented x 4, agreeable to participate, able to follow instructions. Pain: right foot 7/10 , no facial grimacing, able to WB for transfer without report of increase pain. ROM: [] Right Upper Extremity: WNL Left Upper Extremity: WNL Right Lower Extremity: hip and knee WFL ankle DF to neutral Left Lower Extremity: hip and knee WNL No hamstring contracture noted. Ankle NT d/t BKA Strength: [] Right Upper Extremity: shoulder 4-/5 elbow 4/5 hand good Left Upper Extremity: shoulder 4-/5 elbow 4/5 hand good Right Lower Extremity: grossly 3/5 no MMT Left Lower Extremity: grossly 3+/5 Sensation: impaired sensation light touch R foot to mid argueta, B hands d/t neuropathy. Pt with reports of burning hands and right foot. Skin: Wound vac to right foot, Open area with bandage to right argueta, small scabbed area along medial aspect of Right residual limb incision with callused area to right distal tibia, Multiple band aids to left medial knee ( pt reports from liner pinching) Prosthetic Mgmt: pt with poor technique rolling liner with gaps and wrinkles along medial tibial plateau area required assistance to don without wrinkles. Pt unable to get down fully into prosthetic prior to standing despite attempt at releasing suction valve. Pt did with weight bearing drop into prosthetic once stand. Bed Mobility/Transfers: [] Supine to sit independent Sit to stand SBA with left prosthetic on Stand to sit SBA with Left prosthetic on Bed to commode: CGA with FWW and left prosthetic step turn commode to bed: CGA with FWW and left prosthetic step turn Gait: NA d/t his restriction for PWB for transfers only Balance: Static Sitting: Normal Dynamic Sitting: good Static Standing: Fair with BUE support Dynamic Standing: Fair with BUE support Special Tests: Mobility Limitations Standardized Measure [facility] AM-PAC 6 clicks Basic Mobility Inpatient Short Form: Raw Score: 16 CMS Score: 54.16% Informed Consent/Education: Patient instructed in purpose of PT consult. Treatment: UE therex with red Theraband , bicep curls, shoulder flexion, horizontal abduction , seated pushups for tricep, scap retraction. Education and training on initial set of exercises that can be done at home have been completed with patient. don/doff prosthetic liner : pt required min A for proper donning of liner without wrinkles Transfers with EXHAUST AND MUFFLER FITTER for step turn with FWW and prosthetic only. Pt is not to be ambulating. Chair to be brought next to bed for all transfers Assessment: Pt is 64 yo male demonstrates poor technique with donning prosthetic to reduce risk of skin breakdown. Pt is not consistent with wearing his production supv and removing prosthetic liner appropriately. Pt has significant neuropathy BUE and LE with wounds. He Patient presents with clinical signs and symptoms consistent with current/admitting diagnoses that have resulted to mobility limitations, gait inability, generalized weakness, and impairment of motor control as demonstrated by the following impairment level findings: 1. Decreased strength to BUE major muscle groups 2. Impaired standing balance 3. Limitation of joint range of motion in right ankle 4. PWB RLE 5. poor technique with donning prosthetic. 6. Impaired sensation 7. impaired functional activity tolerance Impairments are contributing to the following functional limitations: 1. Inability to ambulate d/t right ankle restrictionsin WB for transfers only 2. Increase completion time for mobility ADL performance 3. Increased fall risk 4. decline in transfer technique Patient is assessed as a moderate complexity based on the following: History: 64-year-old male with impairment level findings, functional limitations, and past medical history as indicated above Examination: Demonstrable impairment in strength, balance, and mobility level with underlying impairments and functional limitations as documented above Presentation: evolving Decision Making: moderate Goals: 1. don Left BKA prosthetic without wrinkles in liner independently 2. independent transfer step turn with FWW to from all surfaces with left prosthetic and maintaining PWB RLE 3. perform BUE HEP x 10 reps including seated pushups. Plan of Care/Treatment Plan: 1-2x/day, 7 days/week x 1 week.Plan of care has been reviewed with the SAWDUST MACHINE OPERATOR providing the service under Physical Therapy direction. Initiate Physical Therapy intervention for strengthening, bed mobility, transfers, gait, stairs, balance training, use of assistive device DISCHARGE RECOMMENDATIONS: Home with resumption of HH PT TREATMENT CODE/TIME: 04163, 76176/ [id number] Thank you for the opportunity to participate in the care of this patient. Valerie Rodrigez PT [facility]
[2024-10-29] MEDS: Acetaminophen 325 MG TAB PO (11:26)
[2024-10-29 11:54] LABS: Bilirubin Negative (Negative); Blood Large (Negative); Clarity Sl Cloudy (Clear); Glucose 250 mg/dL (Negative); Ketones Negative (Negative); Leukocyte Esterase Trace (Negative); Nitrite Negative (Negative); Specific Gravity 1.015 (1.005-1.025)
[2024-10-29 12:06] LABS: C & S Indicated? Yes
[2024-10-29 12:07] LABS: RBC >50 HPF (0-2)
--- NOTE | 2024-10-29 13:10 | NUR.NOTE ---
Reviewed documentation with Bruce Marie, nursing faculty. Deirdre Xiong, MSN, RNC-OB.
--- NOTE | 2024-10-29 13:45 | PGE_ITS ---
Date of Service Date of service: 10/29/24 Time of Service: 13:45 Assessment and Plan Assessment and plan (1) Acute exacerbation of CHF (congestive heart failure): Status: Acute Assessment and plan: -Known history of HFrEF, TTE 10/27 showed EF 20-25%, decreased from previous in Aug -Had recent prolonged hospitalization with subsequent stay at subacute rehab and reportedly was discharged from rehab due to insurance issues without appropriate home care or medications being set up -Therefore patient was without medications including losartan and Lasix -Chest x-ray showed pulmonary edema and patient required supplemental oxygen as well as an elevated proBNP of 12,633 -Patient was initially aggressively diuresed with 80 mg IV Lasix and has had significant improvement in his urine output, Lasix not changed to 40 mg IV twice daily as of a.m. 10/27/2024 -He was fluid negative again in the past 24hrs, but is still above what looks like baseline weight. -Start on spironolactone. Resume losartan once we are able. -SLGT2i indicate. Some concern for amputation risk but likely outweighed by benefit if he can get one of these. -Continue diuresis with furosemide, strict I's and O's (2) Acute hypoxic respiratory failure: Start date: 10/26/24 Status: Acute Assessment and plan: -Secondary to heart failure exacerbation resulting in pulmonary edema as noted above -Patient required up to 2 L nasal cannula -Transition to room air as of a.m. 10/27/24 during the day, appears to still need O2 HS, rec sleep study at [place] (3) Diabetic foot ulcer: Status: Chronic Assessment and plan: - Continue wound care, though no acute infection noted and antibiotics have been discontinued. Has mild WBC elevation but this is chronic -wound consult placed to help with care while here. (4) PVD (peripheral vascular disease): Status: Chronic Assessment and plan: -Continue home Plavix and aspirin (5) Diabetes: Status: Chronic Assessment and plan: Sugars high. He has been off his pump and hasn't started basal insulin. Try to bring pump from home. If not available, give glargine starting at 25 units given his weight. (6) Acute kidney injury superimposed on CKD: Status: Acute Assessment and plan: Creatinine trending up with diuresis, continue to follow. holding ARB. (7) Elevated liver enzymes: Status: Acute Assessment and plan: Improving with diuresis, likely reflecting acute congestion. Follow. (8) Hyperthyroidism: Status: Chronic Assessment and plan: He has a long history of borderline to low TSH. This is the first FT4 that is overtly high however. He is not thyrotoxic clinically so I am hesitant to start methimazole right now. Monitor for symptoms. If not getting symptoms, follow up as outpatient. (9) Anemia: Status: Chronic Assessment and plan: Mild anemia related to prolonged infection, possibly component of CKD. Stable. Subjective Subjective Patient reports: tolerating a regular diet; denies nausea, vomiting or fever Interval history since last seen: He is feeling better. Using oxygen less, just at night (he doesn't use at home. He is still SOB when he is active, more than his baseline. He has noted new blood in the urine. No flank pain or abdominal pain. No chest pain or palpitaitons. Exam Narrative Exam Narrative: Well but fatigued appearing gentleman laying in bed in no acute distress, ANO x 4, heart regular rhythm, lungs clear to auscultation bilaterally, abdomen soft, nontender, nondistended. L\left BKA with trace pitting edema at the stump, and +1 pitting edema in right lower extremity to the mid argueta. Wound RLE dressing not taken down. Objective Last Vital Signs Temp 35.5 C L 10/29/24 11:15 Pulse 79 10/29/24 11:15 Resp 15 10/29/24 11:15 BP 163/92 H 10/29/24 11:15 Pulse Ox 92 10/29/24 11:15 Laboratory Results - last 24 hr 10/29/24 10/29/24 10/29/24 05:35 05:57 11:13 WBC 16.62 H RBC 3.88 L Hgb 10.4 L Hct 34.7 L MCV 89 MCH 26.8 L MCHC 30.0 L RDW 17.2 H Plt Count 264 MPV 11.0 Sodium Cancelled 137 Potassium Cancelled 4.2 Chloride Cancelled 102 Carbon Dioxide Cancelled 25.2 Anion Gap Cancelled 9.8 BUN Cancelled 62 H Creatinine Cancelled 2.9 H Est GFR (CKD-EPI 2020) Cancelled 23.72 Glucose Cancelled 289 H Calcium Cancelled 8.9 Magnesium 1.8 Total Bilirubin 0.7 AST 68 H ALT 100 H Alkaline Phosphatase 300 H Total Protein 6.8 Albumin 2.6 L Urine Color [place] Urine Clarity Sl Cloudy Urine pH 6.0 Ur Specific [place] 1.015 Urine Protein >=300 H Urine Ketones Negative Urine Blood Large H Urine Nitrite Negative Urine Bilirubin Negative Urine Urobilinogen 1.0 H Ur Leukocyte Esterase Trace H Urine RBC >50 H Urine WBC Not Applicable Ur Epithelial Cells Not Applicable Urine Crystals Not Applicable Urine Bacteria Not Applicable Urine Mucus Not Applicable Ur Culture Indicated? Yes Urine Glucose 250 H Time Spent with Patient Time Spent with Patient: >50 minutes Time was spent: preparing to see the patient(eg.review tests), obtaining and/or reviewing separately otained hiistory, ordering medications,tests, procedures, referring, communicating with other health director of critical care, indepentently interpreting results, counseling the patient and care coordination
--- NOTE | 2024-10-29 13:50 | NUR.NOTE ---
assumed care of this patient for RN Latrice, pt introduced to new staff, white board update, pt is Axox4, assesment completed, wound vac to RLE and intact, re-wrapped with nancy bandage, dorsal foot dsg changed and medihoney applied. L BKA, sats stable on room air and pt denies SOB at this time although does have 1L nc accessible if he feels SOB. Patient is independently mobile in bed but requires x1 with walker when OOB due to L BKA and RLE wounds. Next wound vac dsg due 10/30. Wound consult in. Patient's glucose readings AC have been high, discussed this matter with MD Humphrey as well with Juan Daniel from [employer]. Best case scenario is to get pt back on insulin pump, this has been requested of pt and his is going to bring this in today. Patient resting in bed with bed alarm on, call rubalcava in reach, bed low/locked. Tolerating PO intake, denies needs at this time. Nursing Note:
--- NOTE | 2024-10-29 14:15 | PT.INTREAT ---
PT Notes Visit Reasons: Acute hypoxic respiratory failure,CHF exacerbation Inpatient Physical Therapy Treatment Note [facility] Date: 10/29/24 SUBJECTIVE: Ed states that he is willing to exercise but does not want to get OOB. OBJECTIVE: []? VITALS: ?monitored by nursing.? Therapeutic Exercises ([id number]): Direct one-on-one instruction in therapeutic exercises to develop strength, endurance, range of motion and flexibility. ? Exercises ?performed a series of UE banded ex including biceps, horiz abd, punch ups, GH flex and scap retraction x 10ea. ?Provided skilled instruction in proper exercise performance to avoid compensation. ASSESSMENT:? tolerated session well. Has a good understanding of his exercises and fairly independent with them. PLAN: will continue to work on his strength and functional mobility as per PT POC. TREATMENT CODE/TIME: 15 min [id number] DISCHARGE RECOMMENDATION: home with
--- NOTE | 2024-10-29 17:41 | NUR.NOTE ---
insulin pump will not be brought in until tomorrow, will make sure shift mgr aware of x1 lantus dose for tonight, pt's glucose 355 this evening prior to dinner, catheter to gravity, still with bloody output, seems to be lessening in brightness, will continue to monitor, pt still stable on room air with no increase in SOB. Bed low/locked, call rubalcava in reach, bed alarm on, call rubalcava in reach. Nursing Note:
[2024-10-29] MEDS: Insulin Glargine 300 UNITS/3 ML PEN 25 UNITS SC (19:51)
[2024-10-29] MEDS: Albuterol 2.5 MG/3 ML INH SOLN VIAL UPD (20:26)
[2024-10-30] VITALS (7 sets, daily range): BP systolic 118–160; BP diastolic 71–82; PULSE 78–83; RESP 3–19; TEMP 36–36.7; O2SAT 91–95
[2024-10-30 06:56] LABS: Anion Gap 7.9 mmol/L (3-11); BUN 57 mg/dL (7-18); CO2 26.1 mmol/L (21.0-32.0); CREATININE 2.3 mg/dL (0.70-1.30); Calcium 9.1 mg/dL (8.5-10.1); Chloride 103 mmol/L (98-107); Estimated GFR 31.32 (mL/min/1.73m2); Glucose 225 mg/dL (74-106); Magnesium 1.9 mg/dL; Potassium 3.9 mmol/L (3.5-5.1); Sodium 137 mmol/L (136-145)
[2024-10-30] MEDS: amLODIPine 5 MG TAB PO (07:31)
[2024-10-30] MEDS: Normal Saline Flush 10 ML SYR IVP ×2 (07:31→19:36)
[2024-10-30] MEDS: Furosemide 40 MG TAB PO (07:31)
[2024-10-30] MEDS: Atorvastatin 40 MG TAB PO (07:32)
[2024-10-30] MEDS: Isosorbide Mononitrate 60 MG TABCR PO (07:32)
[2024-10-30] MEDS: Insulin Aspart 300 UNITS/3 ML PEN SC ×4 (07:32→21:45)
[2024-10-30] MEDS: Pantoprazole 40 MG TABCR PO (07:32)
[2024-10-30] MEDS: Aspirin E.C. 81 MG TABEC PO (07:32)
[2024-10-30] MEDS: DULoxetine 30 MG CAP PO ×2 (07:32→19:34)
[2024-10-30] MEDS: Metoprolol CR 100 MG TABCR PO ×2 (07:32→19:34)
[2024-10-30] MEDS: Tamsulosin 0.4 MG CAPCR PO (07:32)
[2024-10-30] MEDS: Losartan 25 MG TAB 12.5 MG PO ×2 (08:18→19:34)
[2024-10-30] MEDS: Tiotropium Bromide-Respimat 10 PUFF INH 2 PUFF IH (08:49)
[2024-10-30] MEDS: Budesonide/Formoterol 160/4.5 6 GM 60 PUFF INH IH ×2 (08:49→19:53)
--- NOTE | 2024-10-30 09:53 | WOUNDCONS_ITS ---
Date of service: 10/30/24 Time of Service: 09:53 Wound Initial Evaluation Narrative Narrative: Patient is a 64 year old male admitted on 10/26/24 for acute respiratory failure after being discharged from a rehab facility two days prior.The patient states that in May of 2024 the right ankle was discovered broken after taking his sock off in the evening. After ORIF surgery the wound has become chronic with slow healing. The patient has wound vac supplies available from home and knew the process well for taking down and replacing the wound vac drape and he has specific preferences for such. The patient has a BKA on the left and is motivated to comply with recommendations for wound healing. Past medical history include DM, CHF (with recent adjustments for meds), PVD, CKD, HTN, CAD, DARIO (with new diagnosis for home CPAP). Patient BMI is 40.4. This underwriter mortgage loan reviewed the H&P, allergies and the most recent vital signs. The patient was agreeable to a wound consult and a wound photo consent was signed. This underwriter mortgage loan was assisted by Kaleb Cardenas RN for wound vac drape assistance. The consult was interrupted several times for phone conversations with family in regards to building a ramp for the patient to better access his home after discharge. Wound Right Lateral Ankle: Wound General Appearance: Tendon Visible Wound Bed Greatest Portion: Pale Benitez Wound Bed Lesser Portion: Yellow ([place]) Wound Length: 4.8 cm Wound Width: 3.3 cm Wound Depth: 0.3 cm Wound Drainage Amount: Minimal Wound Drainage Odor: None/Absent Wound Drainage Description: Bloody Additional Other Comments: Wound vac functioning correctly prior to take down and after dressing was re-applied Top of Right Foot: Wound Type: Abrasion and Diabetic Ulcer Wound Drainage Amount: Minimal Wound Drainage Odor: None/Absent Additional Other Comments: Picture was not taken of the wound nor was the wound measured at this time. Patient reports that this wound has been present since May 2024. Circulation, Sensation, Motion Edema Degree: 1+ Peripheral Pulse Strength: Absent Capillary Refill: Greater than 3 seconds Sensation Description: Numbness Skin Temperature: Warm Skin Color: Normal Additional Other Comments: Skin on right foot is very dry. Second digit on right foot has a scabbed wound that patient states has been there for months Pain Additional Other Comments: Patient reports neuropathy in right foot and denies pain. Patient reports unknowingly having a fractured ankle in May of 2024 and was alerted by the edema caused by the fracture, not the pain. Wound Summary Wound Summary: Photo is of right lower extremity lateral ankle wound. Photo Photo: Treatment/Dressing Change Topicals/Ointments: Medihoney Cleanse With: Cleanser with Surfactant Dressing Types: Mepilex w/Border Dressing Comment: Mepilex with border applied to top of right foot Nutrition Education Note: A1c in July of 2024 was 7.5%. Patient states that he is aware that increased protein is beneficial for optimum wound healing. Patient is also aware of a CHO diet and states that he has good results with lower blood sugars after using an insulin pump at home. Recomendation Recomendation:: Continue with home regimen and therapy; Change 3M wound vac every Fri and Fri. Take down dressing, visualize and measure wound [place] wound with wound cleanser, let dwell for 2 minutes and pat dry Reapply white foam by cutting to size then apply barrett foam Apply drape, bridge and more drape according to manufacturers directions Apply netting to hold wound vac tubing vertical on leg as patient prefers Physcian/Nurse Practioner Notified: Yes (Dr. Humphrey)
[2024-10-30] MEDS: Enoxaparin 40 MG/0.4 ML SYR SC ×2 (09:54→21:46)
--- NOTE | 2024-10-30 11:21 | PT.INTREAT ---
PT Notes Visit Reasons: Acute hypoxic respiratory failure,CHF exacerbation Inpatient Physical Therapy Treatment Note [facility] Date: 10/30/24 SUBJECTIVE: Ed states that he already got up to the chair this morning and did fine with just stand by assist. He remains independent with donning/doffing his prosthesis. He does not want to get up again but is agreeable to doing exercises in bed. He may go home today. OBJECTIVE: ? VITALS: monitored by nursing, did check spO2 after exercises and was 92% on RA. ? Therapeutic Exercises ([id number]): Direct one-on-one instruction in therapeutic exercises to develop strength, endurance, range of motion and flexibility. ? Exercises ? semi supine in bed, he performed: bicep curls, shoulder flexion, shoulder IR, D1/D2 x10 bilaterally w/RTB? -Provided skilled instruction in proper exercise performance -Provided skilled manual cues to facilitate proper muscle recruitment and/or form ASSESSMENT:? Pt doing well overall and seems motivated to continue to get stronger. He is having a ramp installed today and will likely not have any problems if d/c'd home. He seems to have a supportive family that will help him as needed. His spO2 remained stable following exercises today on RA. PLAN: D/c to home, continue stand pivot transfer training if kept in hospital TREATMENT CODE/TIME: 15 min - 30823 (Ther Ex x1) DISCHARGE RECOMMENDATION: D/c to home with resumed home health services
--- NOTE | 2024-10-30 16:21 | PGE_ITS ---
Date of Service Date of service: 10/30/24 Time of Service: 16:21 Assessment and Plan Assessment and plan (1) Acute exacerbation of CHF (congestive heart failure): Status: Acute Assessment and plan: -Known history of HFrEF, TTE 10/26 showed EF 20-25%, decreased from previous in Aug -Had recent prolonged hospitalization with subsequent stay at subacute rehab and reportedly was discharged from rehab due to insurance issues without appropriate home care or medications being set up -Therefore patient was without medications including losartan and Lasix, which likely triggered exacerbation. -Chest x-ray showed pulmonary edema and patient required supplemental oxygen as well as an elevated proBNP of 12,633 -Patient was initially aggressively diuresed with 80 mg IV Lasix and has had significant improvement in his urine output, Lasix not changed to 40 mg IV twice daily as of a.m. 10/27/2024, to oral 10/28. -Collapsing IVC on echo done 10/26 after initial diuresis, suggesting he was already approaching euvolemia. -Considered spironolactone, but GFR too low. -SLGT2i indicated. Some concern for amputation risk but likely outweighed by benefit if he can get one of these. -Plan to go back to baselin torsemide orally tomorrow. He had decreased to 10mg but with GFR this is unlikely to do anything, will try 40mg dose. (2) Acute hypoxic respiratory failure: Start date: 10/26/24 Status: Acute Assessment and plan: -Daytime hypoxia secondary to heart failure exacerbation resulting in pulmonary edema has resolved -Transition to room air as of a.m. 10/27/24 during the day, appears to still need O2 at night, has known untreated DARIO. -will document overnight O2 on RA, qualify for oxygen at home if needed. (3) Diabetic foot ulcer: Status: Chronic Assessment and plan: - Appreciate wound consult, wound does not look infected. - Continue wound care, though no acute infection noted and antibiotics have been discontinued. Has mild WBC elevation but this is chronic, follow. - (4) PVD (peripheral vascular disease): Status: Chronic Assessment and plan: -Continue home Plavix and aspirin (5) Diabetes: Status: Chronic Assessment and plan: Sugars still high. He has been off his pump and hasn't started basal insulin. Started glargine at 25 units given his weight, increase to 30 and ISS (6) Acute kidney injury superimposed on CKD: Status: Acute Assessment and plan: Creatinine trending down again, resume ARB. His previous baseline was high ones. (7) Elevated liver enzymes: Status: Acute Assessment and plan: Improved with diuresis, likely reflecting acute congestion. Follow again in AM (8) Hyperthyroidism: Status: Chronic Assessment and plan: He has a long history of borderline to low TSH. This is the first FT4 that is overtly high however. He is not thyrotoxic clinically so I am hesitant to start methimazole right now. Monitor for symptoms. If not getting symptoms, follow up as outpatient, no change (9) Anemia: Status: Chronic Assessment and plan: Mild anemia related to prolonged infection, possibly component of CKD. Stable. Subjective Subjective Patient reports: no new complaints and tolerating a regular diet; denies diarrhea, nausea, vomiting or fever Interval history since last seen: Events: Seen by wound care He still feels a little SOB. On oxygen at night every night. States he has DARIO but couldn't tolerate CPAP, does NOT have oxygen at home. When he lies down he feels chest pressure at times, but this is no different from home. still blood in urine Exam Narrative Exam Narrative: Well but fatigued appearing gentleman laying in bed in no acute distress, ANO x 4, heart regular rhythm, lungs clear to auscultation bilaterally, abdomen soft, nontender, nondistended. L\left BKA with trace pitting edema at the stump, and +1 pitting edema in right lower extremity to the mid argueta. Wound RLE dressing not taken down, see wound care note. Objective Last Vital Signs Temp 36.4 C L 10/30/24 15:38 Pulse 82 10/30/24 15:38 Resp 16 10/30/24 15:38 BP 129/71 10/30/24 15:38 Pulse Ox 95 10/30/24 15:38 Laboratory Results - last 24 hr 10/30/24 05:52 Sodium 137 Potassium 3.9 Chloride 103 Carbon Dioxide 26.1 Anion Gap 7.9 BUN 57 H Creatinine 2.3 H Est GFR (CKD-EPI 2020) 31.32 Glucose 225 H Calcium 9.1 Magnesium 1.9 Time Spent with Patient Time Spent with Patient: >50 minutes Time was spent: preparing to see the patient(eg.review tests), obtaining and/or reviewing separately otained hiistory, ordering medications,tests, procedures, referring, communicating with other health career transition specialist, indepentently interpreting results, counseling the patient and care coordination
[2024-10-30] MEDS: Insulin Glargine 300 UNITS/3 ML PEN 30 UNITS SC (19:35)
[2024-10-30] MEDS: Albuterol 2.5 MG/3 ML INH SOLN VIAL UPD (20:03)
[2024-10-31 03:23] VITALS: BP 120/72; PULSE 78; RESP 18; TEMP 36.4; O2SAT 88
[2024-10-31 06:32] LABS: Abs Immature Grans 0.13 10^3/uL (0.0-0.06); Absolute Basophil Count 0.08 10^3/uL (0.0-0.2); Basophils % 0.5 %; Eosinophils % 3.2 %; HCT 35.3 % (40.0-50.0); HGB 10.6 g/dL (13.5-17.5); Immature Grans % 0.8 %; Lymphocytes % 11.3 %; MCH 26.9 pg (27.0-33.0); MCV 90 fL (80-95); MPV 11.5 fL (8.0-11.0); Monocytes % 7.7 %; Neutrophils % 76.5 %; Platelet Count 233 10^3/uL (130-400); RBC 3.94 10^6/uL (4.36-5.78); RDW 17.2 % (11.8-14.1); RDW-SD 57.2 fL; WBC 16.05 10^3/uL (4.4-10.8)
[2024-10-31 07:05] LABS: Absolute Eosinophil Count 0.51 10^3/uL (0.0-0.7); Absolute Lymphocyte Count 1.81 10^3/uL (1.2-3.4); Absolute Monocyte Count 1.24 10^3/uL (0.1-0.8); Absolute Neutrophil Count 12.28 10^3/uL (1.2-6.7)
[2024-10-31 07:26] VITALS: BP 132/55; PULSE 80; RESP 20; TEMP 36; O2SAT 91
[2024-10-31 07:32] LABS: ALT 46 U/L (16-63); AST 27 U/L (15-37); Albumin 2.6 g/dL (3.4-5.0); Alkaline Phosphatase 265 U/L (46-116); Anion Gap 8.8 mmol/L (3-11); BUN 51 mg/dL (7-18); Bilirubin, Total 0.6 mg/dL (0.2-1.0); CO2 22.2 mmol/L (21.0-32.0); Calcium 9.2 mg/dL (8.5-10.1); Chloride 105 mmol/L (98-107); Estimated GFR 37.04 (mL/min/1.73m2); Glucose 182 mg/dL (74-106); Potassium 4.3 mmol/L (3.5-5.1); Sodium 136 mmol/L (136-145); Total Protein 6.9 g/dL (6.4-8.2)
[2024-10-31] MEDS: Atorvastatin 40 MG TAB PO (07:32)
[2024-10-31] MEDS: Pantoprazole 40 MG TABCR PO (07:32)
[2024-10-31] MEDS: Metoprolol CR 100 MG TABCR PO (07:32)
[2024-10-31] MEDS: Losartan 25 MG TAB 12.5 MG PO (07:33)
[2024-10-31] MEDS: amLODIPine 5 MG TAB PO (07:33)
[2024-10-31] MEDS: Normal Saline Flush 10 ML SYR IVP (07:33)
[2024-10-31] MEDS: Tamsulosin 0.4 MG CAPCR PO (07:33)
[2024-10-31] MEDS: Aspirin E.C. 81 MG TABEC PO (07:33)
[2024-10-31] MEDS: DULoxetine 30 MG CAP PO (07:33)
[2024-10-31] MEDS: Insulin Aspart 300 UNITS/3 ML PEN SC ×2 (07:33→11:50)
[2024-10-31] MEDS: Torsemide 20 MG TAB PO (08:02)
[2024-10-31] MEDS: Tiotropium Bromide-Respimat 10 PUFF INH 2 PUFF IH (08:04)
[2024-10-31] MEDS: Budesonide/Formoterol 160/4.5 6 GM 60 PUFF INH IH (08:05)
[2024-10-31] MEDS: Isosorbide Mononitrate 60 MG TABCR PO (08:05)
[2024-10-31] MEDS: Enoxaparin 40 MG/0.4 ML SYR SC (09:27)
--- NOTE | 2024-10-31 10:48 | PTTR_ITS ---
PT Notes Visit Reasons: Acute hypoxic respiratory failure,CHF exacerbation Inpatient Physical Therapy Treatment Note [facility] Date: 10/31/24 SUBJECTIVE: Pt states that he hopes to go home today. OBJECTIVE: ? VITALS: ? Pre-Treatment: spO2 read fluctuating between 87-91% on RA ? Post-Treatment: spO2 read fluctuating between 87-91% on RA, 1 L/min via NC was applied and it did seem more stable >90% Therapeutic Activities ([id number]): Direct one-on-one instruction in dynamic activities to improve functional performance. ? BED MOBILITY/TRANSFERS? Rolling L/R: independent Supine-sit: independent? Sit-supine: independent? Sit-stand: SBA ? Stand-sit: SBA? Bed-Chair: SBA ? Chair-bed: SBA Propelling wheelchair: independent propelling 300 ft but did need many rest breaks ASSESSMENT:?Pt doing very well with his overall function as he managed to get his prosthesis on, perform a stand pivot transfer to the wheelchair, and propel himself in the wheelchair all independently. These are all the activities he will need to perform when returning home as he has a ramp to get in. His spO2 did not drop but he is satting between 87-91% consistently. When given 1 L/min v ia NC, he was consistently above 90%. This may be the best option for him going forward to make sure that his sats remain stable. PLAN: Continue functional progressions and transfer training TREATMENT CODE/TIME: Ther Act x2 - 25323 (25 min) DISCHARGE RECOMMENDATION: Home with resumed home health services
[2024-10-31 11:32] VITALS: BP 149/78; PULSE 78; RESP 20; TEMP 37; O2SAT 97
--- NOTE | 2024-10-31 14:18 | PDOC.CMDIS ---
Date of service: 10/31/24 Time of Service: 14:18 LACE Index Scoring Tool Questions: Length of Stay (in days): 4 - 6 Was the patient admitted via the E.D.?: Yes Comorbidities: PVD, Diabetes w/o Complication and Congestive Heart Failure E.D. Visits: 2 Answers: Total Score: 14 Risk of Readmission: High Risk Care Management Discharge Plan Reason for Hospitalization: Acute hypoxic respiratory failure Discharge Plan: Edward is medically cleared for discharge and will be d/c'd home with resumption of [facility] services. He is being transported via [facility] w/c van. He agrees to follow up with his community providers and discharge plan of care as directed. Patient/Family Education Needs: Review discharge instructions and plan to follow up after discharge. Discuss ask me three. Services Needed at Discharge: Home Health Care Services (Resumption of H RN/PT, add OT, PASS WORKER) and Transportation ([facility] w/c van coordinated by CM) SDOH Health Related Social Needs: Health related social needs food insecurity (Z59.41), transportation insecurity (Z59.82), feeling lonely/isolated (Z60.8)
--- NOTE | 2024-10-31 15:40 | W.PM.DS.N ---
Date of service: 10/31/24 Time of Service: 12:30 DS: Diagnosis Discharge Diagnosis (1) Acute exacerbation of CHF (congestive heart failure): Status: Acute (2) Acute hypoxic respiratory failure: Status: Acute (3) Diabetic foot ulcer: Status: Chronic (4) PVD (peripheral vascular disease): Status: Chronic (5) Diabetes: Status: Chronic (6) Acute kidney injury superimposed on CKD: Status: Acute (7) Elevated liver enzymes: Status: Acute (8) Hyperthyroidism: Status: Chronic (9) Anemia: Status: Chronic Discharge Plan Disposition Patient Disposition: Home W/Home Health Services Condition: Stable Discharge Details Reason For Visit: Acute hypoxic respiratory failure,CHF exacerbation Admit Date/Time: 10/26/24 19:37 Admit Provider: eKn Neely Attending Provider: Ken Neely Primary Care Provider: Kalli Gamble V Hospital Course Hospital Course: This is a 64-year-old male with HFrEF, untreated DARIO, PAD s/p left BKA, and type 2 DM who has had an unfortunate course since May 2024 when he fractured his right ankle with ORIF complicated by infection and prolonged hospitalization who presented with some dyspnea and confusion and was diagnosed with acute CHF evident on CXR and BNaP of >12k. He had been without multiple medications including his torsemide since discharge from rehabilitation at [facility]. He was diuresed will with IV furosemide and his daytime hypoxia resolved, though he still dipped into the high 80s when lying flat and while sleeping at night. Echocardiogram 10/26 showed a worsening of his LVEF to 20-25%. Losartan was added at low dose and should be titrated on follow up. Spironolactone was considered but was not started due to low GFR. Cr increased to 2.9 after initial aggressive diuresis but came down to 2 the day of discharge despite starting the ARB. The patient did not want to trial SLGT2i after hearing of association with amputation risk, despite mortality benefit. Metoprolol was continued. His oxygen was low overnight even after diuresis. He has known DARIO and did not tolerate CPAP. He did not drop below 87% on room air on the day of discharge. Overnight oximetry was not available on the weekend here but could be considered as outpatient. On admission he was given antibiotics for his ankle ulcer, but he had finished his course of treatment and his ulcer did not look infected. These were discontinued 4/2. He did have a stable mildly elevate WBC count. He was evaluated by the wound RN 10/30 who also did not suspect infection. He could not get his insulin pump and was managed with basal/bolus insulin. He would benefit from GLP-1 but did not tolerate liraglutide in the past. He was discharged to resume home health PT and nursing. Follow up: BMP and follow up visit within the next week. Follow blood pressure and increase losartan if tolerated with goal BP <130/80. ARNI Entresto could also be considered if he can afford it. Reconsider spironolactone if GFR improves as well as SLGT2i blood sugar control back on pump Home Meds and New Rx's Prescriptions: New losartan 25 mg Tablet 12.5 mg PO BID Qty: 30 0RF Continued aspirin 81 mg tablet,delayed release (DR/EC) 81 mg PO DAILY clopidogrel 75 mg tablet 75 mg PO DAILY Glucagon Emergency Kit (human) 1 mg recon soln 1 mg subcut Q20M PRN Rx Instructions: until target blood sugar attained albuterol sulfate [Ventolin HFA] 90 mcg/actuation HFA aerosol inhaler 1 puff inhalation Q4H PRN ranolazine 500 mg tablet extended release 12 hr 500 mg PO BID Patient Comments: need to re-order, refill date 11/06 metoprolol succinate 100 mg tablet extended release 24 hr 100 mg PO BID isosorbide mononitrate 60 mg tablet extended release 24 hr 60 mg PO DAILY nitroglycerin 400 mcg/spray spray,non-aerosol 1 spray translingual Q5M PRN Rx Instructions: do not exceed 3 doses per episode amlodipine 5 mg tablet 5 mg PO DAILY Patient Comments: TAKE 1 TABLET BY MOUTH DAILY atorvastatin 40 mg tablet 40 mg PO DAILY Patient Comments: TAKE 1 TABLET BY MOUTH DAILY budesonide-formoterol [Symbicort] 160-4.5 mcg/actuation HFA aerosol inhaler 2 puff INHALATION BID Patient Comments: INHALE 2 PUFFS BY MOUTH TWICE DAILY tamsulosin 0.4 mg capsule 0.4 mg PO DAILY Patient Comments: TAKE 1 CAPSULE BY MOUTH DAILY polyethylene glycol 3350 17 gram/dose powder 17 g PO DAILY PRN duloxetine [Cymbalta] 30 mg capsule,delayed release(DR/EC) 30 mg PO BID insulin glargine [Basaglar KwikPen U-100 Insulin] 100 unit/mL (3 mL) insulin pen 44 unit subcut DAILY Spiriva Respimat 2.5 mcg/actuation mist 2 inh inhalation DAILY (DME) Omnipod 5 G6-G7 Pods (Gen 5) Cartridge SUBCUT Patient Comments: CHANGE POD EVERY 24 TO 48 HOURS DIRECTED (DME) blood-glucose meter [OneTouch Ultra2 Meter] Kit MISCELLANEOUS glucagon HCl [Glucagon (HCl) Emergency Kit] 1 mg Recon Soln 1 mg IM USEASDIRECTD pantoprazole 40 mg tablet,delayed release (DR/EC) 40 mg PO DAILY Patient Comments: TAKE 1 TABLET BY MOUTH TWICE DAILY insulin aspart U-100 [Novolog U-100 Insulin aspart] 100 unit/mL solution See Rx Instructions continuous subcutaneous infusion .COMPLEX Patient Comments: per pt no insulin since d/c Rx Instructions: medium dose sliding scale as well as meal associated insulin TID (1 unit per 5 grams of carbs) via continuous subcutaneous infusion; medium dose sliding scale as well as meal associated insulin TID (1 unit per 5 grams of carbs) (DME) Dexcom G6 Sensor Device MISCELLANEOUS Patient Comments: 1 DEVICE EVERY 10 DAYS Changed torsemide 20 mg tablet 40 mg PO DAILY Qty: 0 0RF Patient Comments: TAKE 1 TABLET BY MOUTH TWICE DAILY Discontinued cefadroxil 500 mg capsule 500 mg PO BID Patient Comments: TAKE 1 CAPSULE BY MOUTH EVERY 12 HOURS FOR 4 WEEKS torsemide 10 mg tablet 10 mg PO DAILY Patient Comments: TAKE 1 TABLET BY MOUTH DAILY Discharge Instructions Instructions: Heart Failure, Adult (DC) Additional Instructions: Take the new medication losartan to help your heart and blood pressure. Split the pill and take half in morning and night. Your PCP may increase this again Take the two 20mg torsemides in the morning. I think it will work better this way. Monitor weight and blood pressure daily Follow up with your PCP in the next week with labs. Stand Alone Forms: Nursing Discharge Form Referrals: Kalli Gamble MD [Primary Care Provider] - (Follow up within one week. The office will call you Friday to schedule a follow up appointment. If you do not hear from the office, please call to schedule a follow up appointment.) Activity:: Activity as Tolerated Equipment/Supplies:: No Equipment Needed Diet:: Carb Counting Discharge Orders Discharge Orders: Discharge Order (Routine); Ordered 10/31/24 Ordered By: Jack Humphrey Discharge Data Discharge Date/Time-TO BE ENTERED AT DEPARTURE: 10/31/24 14:30 DS: Summary Time Spent with Patient providing and/or coordinating discharge services: Greater than 30 minutes Status at Discharge Functional status at discharge: wheelchair bound Overall status at discharge: patient is back to baseline Mental Status: mental status grossly normal Speech and Movement: speech and movement normal Mood: congruent mood Affect: normal affect Quality:SDOH Health Related Social Needs: Health related social needs food insecurity (Z59.41), transportation insecurity (Z59.82), feeling lonely/isolated (Z60.8) Exam Narrative Exam Narrative: Well but fatigued appearing gentleman laying in bed in no acute distress, ANO x 4, heart regular rhythm, lungs clear to auscultation bilaterally, abdomen soft, nontender, nondistended. Left BKA with trace pitting edema at the stump, and trace to +1 pitting edema in right lower extremity to the mid argueta. Wound RLE dressing not taken down, see wound care note. Psych Mental Status: mental status grossly normal Speech and Movement: speech and movement normal Mood: congruent mood Affect: normal affect DS: Data Vitals/I&O Vitals and I&O: Vital Signs Temperature 37.0 C 10/31/24 11:32 Temperature Source Temporal Artery Scan 10/31/24 11:32 Pulse 78 10/31/24 11:32 Pulse Rhythm Regular 10/26/24 20:37 Pulse 78 10/26/24 19:17 Respiratory Rate 20 10/31/24 11:32 Respiratory Effort Normal, Non-Labored 10/26/24 20:37 Respiratory Depth Normal 10/26/24 20:37 Respiratory Pattern Normal 10/26/24 20:37 Blood Pressure 149/78 H 10/31/24 11:32 Blood Pressure Mean 183 10/26/24 20:00 Blood Pressure Position Sitting 10/26/24 13:46 Pulse Oximetry 97 10/31/24 11:32 Oxygen Delivery Method Nasal Cannula 10/31/24 11:32 Oxygen Flow Rate 1 10/31/24 11:32 Pain Level 0 10/31/24 07:26 Comment RN notified of vitals 10/30/24 07:21 Intake & Output 10/30/24 10/31/24 10/31/24 23:59 11:59 23:59 Intake Total 734 / 762 728 / 728 Output Total 1315 / 2815 640 / 640 Balance -581 / -2052 88 / 88 Weight 130.181 kg Intake: IV Oral 720 / 720 700 / 700 Output: Output, Wound Vac (mls) 0 / 0 0 / 0 Urine 1315 / 2815 640 / 640 Other: Urine Color Brown Yellow Urine Appearance Cloudy Clear Urine Odor Strong Strong Comment Patient's urine was dark brown in color, similar to coke, and it was cloudy. Patient's urine was cloudy and brown in color. Stool Size Moderate Stool Characteristics Soft Data Completed and Pending Labs on day of discharge: Labs from last 24 hours 10/31/24 10/31/24 06:15 06:06 WBC 16.05 H RBC 3.94 L Hgb 10.6 L Hct 35.3 L MCV 90 MCH 26.9 L MCHC 30.0 L RDW 17.2 H Plt Count 233 MPV 11.5 H Immature Gran % 0.8 Neutrophils % 76.5 Lymphocytes % 11.3 Monocytes % 7.7 Eosinophils % 3.2 Basophils % 0.5 Nucleated RBC % 0.0 Absolute Neutrophils 12.28 H Absolute Lymphocytes 1.81 Absolute Monocytes 1.24 H Absolute Eosinophils 0.51 Absolute Basophils 0.08 Sodium 136 Potassium 4.3 Chloride 105 Carbon Dioxide 22.2 Anion Gap 8.8 BUN 51 H Creatinine 2.0 H Est GFR (CKD-EPI 2020) 37.04 Glucose 182 H Calcium 9.2 Total Bilirubin 0.6 AST 27 ALT 46 Alkaline Phosphatase 265 H Total Protein 6.9 Albumin 2.6 L Preliminary micro results at discharge 10/26/24 16:55 Blood Culture - Preliminary Blood NO GROWTH 96 HOURS 10/26/24 16:45 Blood Culture - Preliminary Blood NO GROWTH 96 HOURS PFSH All Active Problems (Updated 10/29/24 @ 14:05 by Jack Humphrey) Anemia (Chronic) Hyperthyroidism (Chronic) Elevated liver enzymes (Acute) Hx of left BKA (Acute) Acute exacerbation of CHF (congestive heart failure) (Acute) Hyperlipidemia (Chronic) Acute hypoxic respiratory failure (Acute) Hyperkalemia (Acute) Surgical wound infection (Acute) CHF (congestive heart failure) (Chronic) Acute kidney injury superimposed on CKD (Acute) Severe sepsis (Acute) PVD (peripheral vascular disease) (Chronic) Diabetes (Chronic) Diabetic foot ulcer (Chronic) Cellulitis of right ankle (Acute) No-show for appointment (Acute) Medical History Retinal disease, left Uses continuous positive airway pressure (CPAP) ventilation at home Hypotension Dehydration Below-knee amputation of left lower extremity Peripheral neuropathy Cervicalgia Headache, post-traumatic COVID-19 Phantom limb pain Tobacco use Chronic kidney disease, stage III (moderate) Inferior SC 2006 Hx of pancreatitis Exposure to COVID-19 virus 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 CAD (coronary artery disease) multiple stents 2006 Diabetes mellitus GERD (gastroesophageal reflux disease) HTN (hypertension) Hypercholesterolemia DARIO (obstructive sleep apnea) Obesities, morbid Migraine Neuropathy Diabetic foot ulcer Poorly controlled diabetes mellitus Chest pain Surgical History Hx of cardiac catheterization Status post below knee amputation of left lower extremity History of lung biopsy History of heart artery stent S/P foot surgery Social History Smoking/Tobacco Use Status: Former Tobacco Use Quit Date: 05/30/24 Smoking risk assessment performed?: Yes Alcohol Intake: never Drug use: Never Substance use type: does not use Housing: house Do you feel safe at home: Yes Do you feel safe in your relationship?: Yes Time Spent with Patient Time Spent with Patient: <45 minutes Time was spent: preparing to see the patient(eg.review tests), obtaining and/or reviewing separately otained hiistory, ordering medications,tests, procedures, referring, communicating with other health director career services, indepentently interpreting results, counseling the patient and care coordination
== END 2024-10-31 14:30 | disposition home health service (06) | DRG 291 ==
LOC: ER 19:32 → MS 20:26
PROVIDERS: Family Medicine; Admitting Provider Family Medicine; Emergency Provider Emergency Medicine; PCP Family Medicine; Responsible Provider Family Medicine; Visit Provider Family Medicine
DX: I13.0 Hypertensive heart and chronic kidney disease with heart failure and stage 1 through stage 4 chronic kidney disease, or unspecified chronic kidney disease (principal); I50.23 Acute on chronic systolic (congestive) heart failure; J96.01 Acute respiratory failure with hypoxia; L97.518 Non-pressure chronic ulcer of other part of right foot with other specified severity; N18.4 Chronic kidney disease, stage 4 (severe); N17.9 Acute kidney failure, unspecified; Z68.41 Body mass index [BMI] 40.0-44.9, adult; E11.22 Type 2 diabetes mellitus with diabetic chronic kidney disease; I73.9 Peripheral vascular disease, unspecified; Z79.4 Long term (current) use of insulin; N18.32 Chronic kidney disease, stage 3b; E78.2 Mixed hyperlipidemia; I25.10 Atherosclerotic heart disease of native coronary artery without angina pectoris; G47.33 Obstructive sleep apnea (adult) (pediatric); Z89.512 Acquired absence of left leg below knee; R74.8 Abnormal levels of other serum enzymes; E05.90 Thyrotoxicosis, unspecified without thyrotoxic crisis or storm; D64.9 Anemia, unspecified; E11.621 Type 2 diabetes mellitus with foot ulcer; J44.9 Chronic obstructive pulmonary disease, unspecified; E11.65 Type 2 diabetes mellitus with hyperglycemia; T38.3X6A Underdosing of insulin and oral hypoglycemic [antidiabetic] drugs, initial encounter; Z91.138 Patient's unintentional underdosing of medication regimen for other reason; E11.42 Type 2 diabetes mellitus with diabetic polyneuropathy; I25.2 Old myocardial infarction; Z95.5 Presence of coronary angioplasty implant and graft; K21.9 Gastro-esophageal reflux disease without esophagitis; E78.00 Pure hypercholesterolemia, unspecified; E66.01 Morbid (severe) obesity due to excess calories; T81.89XA Other complications of procedures, not elsewhere classified, initial encounter
CPT/HCPCS: 00123; 36415; 36416; 80048; 80053; 80307; 82805; 82962; 85027; 87040; 87637; 93005; 94640; 96374; 96375; 97110; 97162; 97530; 99285; J1650; 71045; 76705; 81003; 81015; 83605; 83735; 83880; 84439; 84443; 84484; 85025; 85610; 85730; 87086; 93010; 93306; 94664; 94760; 99223; 99233; 99239; J0692; J1815; J1941; J7613

== ENCOUNTER 2024-11-04 21:03 | Outpatient (REF) | payer MEDICARE, SELFPAY ==
[2024-11-04 19:29] LABS: Abs Immature Grans 0.11 10^3/uL (0.0-0.06); Basophils % 0.5 %; Eosinophils % 0.6 %; HCT 35.9 % (40.0-50.0); HGB 10.9 g/dL (13.5-17.5); Immature Grans % 0.6 %; Lymphocytes % 6.6 %; MCH 26.5 pg (27.0-33.0); MCHC 30.4 % (32.0-36.0); MCV 87 fL (80-95); MPV 12.1 fL (8.0-11.0); Neutrophils % 86.7 %; Platelet Count 264 10^3/uL (130-400); RBC 4.12 10^6/uL (4.36-5.78); RDW-SD 53.7 fL; WBC 19.86 10^3/uL (4.4-10.8)
[2024-11-04 19:35] LABS: ESR 57 mm/hr (0-20)
[2024-11-04 19:37] LABS: Absolute Eosinophil Count 0.12 10^3/uL (0.0-0.7); Absolute Lymphocyte Count 1.31 10^3/uL (1.2-3.4); Absolute Monocyte Count 0.99 10^3/uL (0.1-0.8); Absolute Neutrophil Count 17.22 10^3/uL (1.2-6.7)
[2024-11-04 19:43] LABS: ALT 31 U/L (16-63); AST 20 U/L (15-37); Albumin 2.9 g/dL (3.4-5.0); Alkaline Phosphatase 255 U/L (46-116); Anion Gap 10.2 mmol/L (3-11); BUN 42 mg/dL (7-18); Bilirubin, Total 1.1 mg/dL (0.2-1.0); C-Reactive Protein 7.41 mg/dL (<or=0.5); CO2 24.8 mmol/L (21.0-32.0); CREATININE 1.9 mg/dL (0.70-1.30); Calcium 9.6 mg/dL (8.5-10.1); Chloride 99 mmol/L (98-107); Estimated GFR 39.39 (mL/min/1.73m2); Glucose 427 mg/dL (74-106); Sodium 134 mmol/L (136-145); Total Protein 6.9 g/dL (6.4-8.2)
[2024-11-04 19:45] LABS: Potassium 5.2 mmol/L (3.5-5.1)
== END 2024-11-04 21:04 | disposition home or self-care (01) ==
LOC: NCHCN 21:03
PROVIDERS: PCP Family Medicine; Visit Provider Family Medicine
DX: I50.9 Heart failure, unspecified (principal)
CPT/HCPCS: 80053; 85652; 85025; 86140

== ENCOUNTER 2024-11-11 16:55 | Inpatient (IN) | payer MEDICARE, MEDICAID, SELFPAY ==
[2024-11-11] VITALS (19 sets, daily range): BP systolic 102–145; BP diastolic 40–83; PULSE 60–73; RESP 14–21; TEMP 35.9–36.2; O2SAT 86–97
--- NOTE | 2024-11-11 17:00 | RT.EKG_ITS ---
APPROVED REPORT Exam: Resting ECG Reason for Exam: Dizziness, hypotension Patient Location: E HR:65 bpm ECG Measurements Heart Rate 65 AXIS RI 169 P 48 QRSd 129 QRS -7 QT 505 T 69 QTc 525 Conclusion Sinus rhythm, rate 65 Prolonged QTc, 525ms IVCD, new from priors No STEMI
--- NOTE | 2024-11-11 17:30 | DI.RAD_ITS ---
Exam(s) XR CHEST 2V PA LATERAL EXAM: XR CHEST 2V PA LATERAL CLINICAL HISTORY: SOB, cough productive of sputum TECHNIQUE: 2D digital imaging was performed. Two views. COMPARISON: CR,XR XR RIBS LT W PA LAT CHEST from 05/24/2020 CR,XR XR PORTABLE CHEST AP from 12/22/[address] CHEST LUNG CANCER SCREEN from 09/25/2023 CR XR PORTABLE CHEST AP from 10/26/2024 FINDINGS: The exam is limited, performed on a stretcher. The exam is under penetrated. HEART: Enlarged. Coronary artery stent. Aorta: Not dilated. Calcification at arch. PULMONARY VASCULATURE: Prominent. MEDIASTINUM: Unremarkable. LUNGS: Increased interstitial markings throughout. There is in abnormal increased densities in the r ight middle lobe. PLEURAL SPACE: Tiny right pleural effusion. No pneumothorax. BONE:Unremarkable for age. SOFT TISSUES: Unremarkable. IMPRESSION: Limited exam due to under penetration at the lung bases. Increased densities at the right middle lobe suspicious for pneumonia. Increased interstitial markings pulmonary vascular prominence could indicate mild CHF. DATA REPOSITORY: RADIATION DOSE DELIVERED:
--- NOTE | 2024-11-11 17:35 | ED.GENADUL_ITS ---
Discharge Plan Discharge Details Chief Complaint: Dizzy/Sync Primary Care Provider: Kalli Gamble V ED Provider: Daphnie Bills Home Meds and New Rx's Prescriptions: No Action aspirin 81 mg tablet,delayed release (DR/EC) 81 mg PO DAILY clopidogrel 75 mg tablet 75 mg PO DAILY Glucagon Emergency Kit (human) 1 mg recon soln 1 mg subcut Q20M PRN Rx Instructions: until target blood sugar attained albuterol sulfate [Ventolin HFA] 90 mcg/actuation HFA aerosol inhaler 1 puff inhalation Q4H PRN ranolazine 500 mg tablet extended release 12 hr 500 mg PO BID Patient Comments: need to re-order, refill date 11/06 metoprolol succinate 100 mg tablet extended release 24 hr 100 mg PO BID isosorbide mononitrate 60 mg tablet extended release 24 hr 60 mg PO DAILY amlodipine 5 mg tablet 5 mg PO DAILY Patient Comments: TAKE 1 TABLET BY MOUTH DAILY atorvastatin 40 mg tablet 40 mg PO DAILY Patient Comments: TAKE 1 TABLET BY MOUTH DAILY budesonide-formoterol [Symbicort] 160-4.5 mcg/actuation HFA aerosol inhaler 2 puff INHALATION BID Patient Comments: INHALE 2 PUFFS BY MOUTH TWICE DAILY tamsulosin 0.4 mg capsule 0.4 mg PO DAILY Patient Comments: TAKE 1 CAPSULE BY MOUTH DAILY duloxetine [Cymbalta] 30 mg capsule,delayed release(DR/EC) 60 mg PO BID Spiriva Respimat 2.5 mcg/actuation mist 2 inh inhalation DAILY (DME) Omnipod 5 G6-G7 Pods (Gen 5) Cartridge SUBCUT Patient Comments: CHANGE POD EVERY 24 TO 48 HOURS DIRECTED losartan 25 mg Tablet 12.5 mg PO BID Qty: 30 0RF (DME) blood-glucose meter [marinanowTouch Ultra2 Meter] Kit MISCELLANEOUS glucagon HCl [Glucagon (HCl) Emergency Kit] 1 mg Recon Soln 1 mg IM USEASDIRECTD pantoprazole 40 mg tablet,delayed release (DR/EC) 40 mg PO DAILY Patient Comments: TAKE 1 TABLET BY MOUTH TWICE DAILY insulin aspart U-100 [Novolog U-100 Insulin aspart] 100 unit/mL solution See Rx Instructions continuous subcutaneous infusion .COMPLEX Patient Comments: per pt no insulin since d/c Rx Instructions: medium dose sliding scale as well as meal associated insulin TID (1 unit per 5 grams of carbs) via continuous subcutaneous infusion; medium dose sliding scale as well as meal associated insulin TID (1 unit per 5 grams of carbs) (DME) Dexcom G6 Sensor Device MISCELLANEOUS Patient Comments: 1 DEVICE EVERY 10 DAYS insulin glargine-yfgn [Semglee(insulin glarg-yfgn)Pen] 100 unit/mL (3 mL) insulin pen 30 unit subcut QPM nitroglycerin 0.4 mg tablet, sublingual 0.4 mg sublingual Q5M PRN Patient Comments: DISSOLVE ONE TABLET UNDER TONGUE NEEDED FOR CHEST PAIN EVERY 5 MINUTES. NOT TO EXCEED 3 TABLETS IN 24 HOURS docusate sodium [Colace] 100 mg capsule 100 mg PO DAILY doxycycline hyclate 100 mg tablet 100 mg PO BID Patient Comments: TAKE 1 TABLET BY MOUTH TWICE DAILY cholecalciferol (vitamin D3) [Vitamin D3] 25 mcg (1,000 unit) tablet 5,000 unit PO DAILY Probiotic Acidophilus 250 million cell capsule 1,000 mmu cells PO DAILY oxycodone-acetaminophen 10-325 mg tablet 1 tab PO BID Patient Comments: TAKE 1 TABLET BY MOUTH TWICE DAILY FOR CHRONIC PAIN torsemide 20 mg tablet 20 mg PO BID Patient Comments: TAKE 1 TABLET BY MOUTH TWICE DAILY HPI General Date/Time Provider Initiated Documentation: 11/11/24 17:14 . HPI Narrative: Yo is a 64 year old male who presents to the emergency department today for evaluation of hypoptension with SBP in the 80s-90s. He reports he has not been feeling well for the last couple of days, reports nasal congestion, cough productive of sputum, spontaneous episodes of lightheadedness lasting anywhere from a couple of seconds to 5 minutes (no identifiable triggers, not associated with movement or chest discomfort )and mild nausea. He denies fever/chills, headaches, sore throat, chest pain, vomiting, abdominal pain, change in bowel or bladder function. He has been unable to ambulate for the past 6 months due to weakness. He was recently hospitalized for COPD exacerbation 2 weeks ago, was discharged home on 2 L oxygen. He reports he has been using his prescribed controller inhalers, has not felt he needed a rescue inhaler but thinks he might be able to benefit from 1 now. He does check his blood sugars regularly, has CGM in place. Usually blood sugars are in the 130s, has been 300 lately. Past medical history is significant for T2DM with surgical amputation of the left leg, multiple MIs with stent placement, COPD on home O2, hypothyroidism, CHF. Physical exam reassuring. Yo is alert and oriented, no acute distress. Able to speak in complete sentences. Coarse lung sounds noted to left lobe and right lower lobe, no cough during evaluation. Normal heart sounds. Abdomen soft, nondistended, nontender to palpation. D/dx includes but is not limited to: Pneumonia, viral illness, COPD exacerbation, occult infection such as UTI, electrolyte imbalance, dehydration, cardiac arrhythmia, acute symptomatic anemia, I independently interpreted the following tests: CBC notable for mild leukocytosis, 12.91 today, improved from 19.86 on 11/04/2024. H&H unchanged from previous. CMP notable for elevated creatinine, 3.0 today versus 1.9 on 11/04, BUN is also elevated at 57 today from 42 on 11/04. VBG, lactate, and troponins reassuring. Haziness noted to R middle lobe on CXR, this was confirmed as probable infiltrate by radiologist. EKG reassuring, NSR rate 65, QTc prolonged at 525 (increased from 495 on 10/26/24). POCUS performed w Dr Shepard, ICV not p lethoric, no obvious B lines noted, moderate EF. While in the emergency department, Yo received gentle hydration for dehydration, mild hypokalemia, and BRAYAN. Duoneb given for course lung sounds with good subjective improvement in breathing. History and presentation c/w PNA and BRAYAN. Presented case to Dr Neely, hospitalist- pt to be admitted for gentle fluid rehydration. Related Data Home Medications ?Medication ?Instructions ?Recorded ?Confirmed blood-glucose meter (OneTouch 07/18/20 10/26/24 Ultra2 Meter kit) glucagon HCl 1 mg solution for 1 mg IM USEASDIRECTD for severe 07/18/20 11/11/24 injection (Glucagon (HCl) hypoglycemia Emergency Kit) albuterol sulfate 90 mcg/actuation 1 puff inhalation Q4H PRN 06/07/21 11/11/24 aerosol inhaler (Ventolin HFA) aspirin 81 mg tablet,delayed 81 mg PO DAILY 06/07/21 11/11/24 release clopidogrel 75 mg tablet 75 mg PO DAILY 06/07/21 11/11/24 glucagon 1 mg solution for 1 mg subcut Q20M PRN 06/07/21 11/11/24 injection (Glucagon Emergency Kit) isosorbide mononitrate 60 mg 60 mg PO DAILY 06/07/21 11/11/24 tablet,extended release 24 hr metoprolol succinate 100 mg 100 mg PO BID 06/07/21 11/11/24 tablet,extended release 24 hr ranolazine 500 mg tablet,extended 500 mg PO BID 06/07/21 11/11/24 release,12 hr blood-glucose sensor ([employer] G6 08/30/24 10/26/24 Sensor device) insulin aspart U-100 100 unit/mL See Rx Instructions continuous 08/30/24 11/11/24 subcutaneous solution (Novolog subcutaneous infusion .COMPLEX U-100 Insulin aspart) pantoprazole 40 mg tablet,delayed 40 mg PO DAILY 08/30/24 11/11/24 release amlodipine 5 mg tablet 5 mg PO DAILY 10/26/24 11/11/24 atorvastatin 40 mg tablet 40 mg PO DAILY 10/26/24 11/11/24 budesonide-formoterol HFA 160 2 puff inhalation BID 10/26/24 11/11/24 mcg-4.5 mcg/actuation aerosol inhaler (Symbicort) duloxetine 30 mg capsule,delayed 60 mg PO BID 10/26/24 11/11/24 release (Cymbalta) insulin pump cart,auto,BT,G6/7 10/26/24 10/26/24 (Omnipod 5 G6-G7 Pods (Gen 5) subcutaneous cartridge) tamsulosin 0.4 mg capsule 0.4 mg PO DAILY 10/26/24 11/11/24 tiotropium bromide 2.5 2 inh inhalation DAILY 10/26/24 11/11/24 mcg/actuation mist for inhalation (Spiriva Respimat) losartan 25 mg tablet 12.5 mg (1/2 x 25 mg) PO BID #30 10/31/24 11/11/24 tabs Lactobacillus acidophilus 250 1,000 mmu cells PO DAILY 11/11/24 11/11/24 million cell capsule (Probiotic Acidophilus) cholecalciferol (vitamin D3) 25 5,000 unit PO DAILY 11/11/24 11/11/24 mcg (1,000 unit) tablet (Vitamin D3) docusate sodium 100 mg capsule 100 mg PO DAILY 11/11/24 11/11/24 (Colace) doxycycline hyclate 100 mg tablet 100 mg PO BID 11/11/24 11/11/24 insulin glargine-yfgn 100 unit/mL 30 unit subcut QPM 11/11/24 11/11/24 (3 mL) subcutaneous pen (Semglee (insulin glargine-yfgn) Pen) nitroglycerin 0.4 mg sublingual 0.4 mg sublingual Q5M PRN 11/11/24 11/11/24 tablet oxycodone-acetaminophen 10 mg-325 1 tab PO BID 11/11/24 11/11/24 mg tablet torsemide 20 mg tablet 20 mg PO BID 11/11/24 11/11/24 Previous Rx's ?Medication ?Instructions ?Recorded losartan 25 mg tablet 12.5 mg (1/2 x 25 mg) PO BID #30 10/31/24 tabs Allergies Allergy/AdvReac Type Severity Reaction Status Date / Time Benzodiazepines Allergy Mild Unknown Verified 11/11/24 17:17 hyoscyamine Allergy Mild Unknown Verified 11/11/24 17:17 Penicillins Allergy Unknown tolerated Unverified 11/11/24 17:17 Zosyn on admission 06/2016 insulin glargine, human AdvReac Intermediate Diarrhea Unverified 11/11/24 17:17 recombin. a (From Lantus) liraglutide (From Victoza) AdvReac Intermediate Diarrhea Unverified 11/11/24 17:17 lorazepam AdvReac Intermediate Loopy Unverified 11/11/24 17:17 metformin AdvReac Intermediate Diarrhea Unverified 11/11/24 17:17 methadone AdvReac Intermediate Loopy Unverified 11/11/24 17:17 pregabalin (From Lyrica) AdvReac Intermediate Diarrhea Verified 11/11/24 17:17 gabapentin AdvReac Mild loopy Unverified 11/11/24 17:17 morphine AdvReac Unknown Flushing Unverified 11/11/24 17:17 when given too fast General Stated Complaint: Dizzy/Sync CARLOS EDUARDO: 3 Review of Systems Narrative: see HPI Exam Const General: cooperative and comfortable Nutritional Appearance: average body habitus Orientation: alert and awake HENMT Mouth: other (tacky MM) Resp Effort & Inspection: normal respiratory effort Auscultation: rhonchi (R lung) Cardio Rate: regular rate Rhythm: regular rhythm Pulses: radial pulses present GI Inspection: normal to inspection and non-distended Palpation: soft, not firm, no guarding, not rigid and nontender Course Vital Signs Vital signs: Vital Signs Temperature 35.9 C L 11/11/24 16:55 Pulse 69 11/11/24 16:55 Respiratory Rate 18 11/11/24 16:55 Blood Pressure 102/40 L 11/11/24 16:55 Pulse Oximetry 92 11/11/24 16:55 Temperature 35.9 C L 11/11/24 16:55 Temperature Source Temporal Artery Scan 11/11/24 16:55 Pulse 69 11/11/24 16:55 Respiratory Rate 18 11/11/24 16:55 Blood Pressure 102/40 L 11/11/24 16:55 Pulse Oximetry 92 11/11/24 16:55 Oxygen Delivery Method Nasal Cannula 11/11/24 16:55 Oxygen Flow Rate 2 11/11/24 16:55 Pain Level 6 11/11/24 16:55 Comment leg / ankle pain 11/11/24 16:55 Medical Decision Making Imaging Data Radiologic Study: Radiologist's impression: Exam(s) XR CHEST 2V PA LATERAL EXAM: XR CHEST 2V PA LATERAL CLINICAL HISTORY: SOB, cough productive of sputum TECHNIQUE: 2D digital imaging was performed. Two views. COMPARISON: CR,XR XR RIBS LT W PA LAT CHEST from 05/24/2020 CR,XR XR PORTABLE CHEST AP from 12/22/[address] CHEST LUNG CANCER SCREEN from 09/25/2023 CR XR PORTABLE CHEST AP from 10/26/2024 FINDINGS: The exam is limited, performed on a stretcher. The exam is under penetrated. HEART: Enlarged. Coronary artery stent. Aorta: Not dilated. Calcification at arch. PULMONARY VASCULATURE: Prominent. MEDIASTINUM: Unremarkable. LUNGS: Increased interstitial markings throughout. There is in abnormal increased densities in the right middle lobe. PLEURAL SPACE: Tiny right pleural effusion. No pneumothorax. BONE:Unremarkable for age. SOFT TISSUES: Unremarkable. IMPRESSION: Limited exam due to under penetration at the lung bases. Increased densities at the right middle lobe suspicious for pneumonia. Increased interstitial markings pulmonary vascular prominence could indicate mild CHF. Quality:SDOH Health Related Social Needs: Health related social needs food insecurity (Z59.41), transportation insecurity (Z59.82), feeling lonely/isolated (Z60.8) PFSH All Active Problems (Updated 11/11/24 @ 21:03 by Ken Neely) COPD (chronic obstructive pulmonary disease) (Chronic) Pneumonia (Acute) Hypotension due to hypovolemia (Acute) BRAYAN (acute kidney injury) (Acute) Anemia (Chronic) Hyperthyroidism (Chronic) Elevated liver enzymes (Acute) Hx of left BKA (Acute) Hyperlipidemia (Chronic) Hyperkalemia (Acute) Surgical wound infection (Acute) CHF (congestive heart failure) (Chronic) Severe sepsis (Acute) PVD (peripheral vascular disease) (Chronic) Diabetes (Chronic) Diabetic foot ulcer (Chronic) Cellulitis of right ankle (Acute) No-show for appointment (Acute) Medical History Retinal disease, left Uses continuous positive airway pressure (CPAP) ventilation at home Hypotension Dehydration Below-knee amputation of left lower extremity Peripheral neuropathy Cervicalgia Headache, post-traumatic COVID-19 Phantom limb pain Tobacco use Chronic kidney disease, stage III (moderate) Inferior [place] 2006 Hx of pancreatitis Exposure to COVID-19 virus 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 CAD (coronary artery disease) multiple stents 2006 Diabetes mellitus GERD (gastroesophageal reflux disease) HTN (hypertension) Hypercholesterolemia DARIO (obstructive sleep apnea) Obesities, morbid Migraine Neuropathy Diabetic foot ulcer Poorly controlled diabetes mellitus Chest pain Surgical History Hx of cardiac catheterization Status post below knee amputation of left lower extremity History of lung biopsy History of heart artery stent S/P foot surgery Social History Smoking/Tobacco Use Status: Former Tobacco Use Quit Date: 05/30/24 Smoking risk assessment performed?: Yes Alcohol Intake: never Drug use: Never Substance use type: does not use Housing: house Do you feel safe at home: Yes Do you feel safe in your relationship?: Yes
[2024-11-11 18:06] LABS: BE (Venous) 4 mmol/L (-2-3); HCO3 (Venous) 29 mmol/L (23-28); Lactate 1.3 mmol/L (<or=2.0); O2 Sat (Venous) 78 %; TCO2 (Venous) 27 mmol/L (24-29); pCO2 (Venous) 46 mmHg (41-51); pO2 (Venous) 44 mmHg
[2024-11-11 18:10] LABS: Abs Immature Grans 0.08 10^3/uL (0.0-0.06); Absolute Basophil Count 0.08 10^3/uL (0.0-0.2); Absolute Eosinophil Count 0.46 10^3/uL (0.0-0.7); Absolute Lymphocyte Count 1.72 10^3/uL (1.2-3.4); Absolute Monocyte Count 0.93 10^3/uL (0.1-0.8); Absolute Neutrophil Count 9.64 10^3/uL (1.2-6.7); Basophils % 0.6 %; Eosinophils % 3.6 %; HCT 35.9 % (40.0-50.0); Immature Grans % 0.6 %; Lymphocytes % 13.3 %; MCH 26.4 pg (27.0-33.0); MCHC 30.6 % (32.0-36.0); MCV 86 fL (80-95); MPV 10.9 fL (8.0-11.0); Monocytes % 7.2 %; Neutrophils % 74.7 %; Platelet Count 250 10^3/uL (130-400); RBC 4.17 10^6/uL (4.36-5.78); RDW 16.8 % (11.8-14.1); RDW-SD 53.4 fL; WBC 12.91 10^3/uL (4.4-10.8)
[2024-11-11 18:38] LABS: ALT 12 U/L (16-63); AST 12 U/L (15-37); Albumin 2.5 g/dL (3.4-5.0); Alkaline Phosphatase 222 U/L (46-116); Anion Gap 8.1 mmol/L (3-11); BUN 57 mg/dL (7-18); Bilirubin, Total 0.8 mg/dL (0.2-1.0); CO2 28.9 mmol/L (21.0-32.0); Calcium 9.1 mg/dL (8.5-10.1); Chloride 100 mmol/L (98-107); Estimated GFR 22.77 (mL/min/1.73m2); Glucose 276 mg/dL (74-106); NT-proBNP 7340 pg/mL (<300); Potassium 3.4 mmol/L (3.5-5.1); Sodium 137 mmol/L (136-145); Troponin I 21 ng/L (<or=76)
[2024-11-11] MEDS: Albuterol/Ipratropium 3 ML UPD VIAL UPD (19:04)
[2024-11-11 20:08] LABS: Troponin I 20 ng/L (<or=76)
--- NOTE | 2024-11-11 20:29 | HPE_ITS ---
Date of service: 11/11/24 Time of Service: 20:30 Assessment and Plan Assessment and plan (1) Hypotension due to hypovolemia: Start date: 11/11/24 Status: Acute Assessment and plan: This is a 64-year-old gentleman with recurrent hospitalizations since May 2024 when he had a fractured right ankle being status post BKA on the left. He recently was hospitalized for CHF and COPD exacerbation and his echocardiogram did show progression of his reduced left ventricular ejection fraction. He was on increased diuretics at home and did become dry and now is hypovolemic with hypotension. He was IV hydrated with 250 cc normal saline and will be on a 80 cc/h normal saline infusion overnight. If he stabilizes he will restart his diuretic maybe at a lower dose and resume his antihypertensives as before. For now he is on a split dose of metoprolol. He is expected to be discharged home. He is a full code. (2) BRAYAN (acute kidney injury): Start date: 11/11/24 Status: Acute Assessment and plan: Gentle IV hydration with patient having chronic CKD with his diabetes. Trend labs. (3) Pneumonia: Start date: 11/11/24 Status: Acute Assessment and plan: IV cefepime, doxycycline and vancomycin for hospital-acquired right lower lobe pneumonia with multiple hospitalizations recently. He is afebrile he does have a mild elevation of his WBC. He does have some mild respiratory symptoms but does have a history of COPD. His inhaler therapy will be continued. (4) CHF (congestive heart failure): Status: Chronic Assessment and plan: Echocardiogram does reveal increasing LVEF. Hold diuretic until blood pressure stabilizes then lower dose of torsemide she could be reinitiated. Trend labs. (5) Diabetes mellitus: Assessment and plan: Hold outpatient medical therapy with glucometer measurements before meals and at bedtime with moderate sliding scale short acting insulin coverage while hospitalized. (6) HTN (hypertension): Assessment and plan: Hold outpatient medical therapy until blood pressure stabilizes with IV hydration. Low-dose metoprolol every 6 hours as tolerated. (7) CAD (coronary artery disease): Assessment and plan: Continue outpatient medical therapy including isosorbide. (8) DARIO (obstructive sleep apnea): Assessment and plan: Home CPAP if this is being administered at home. (9) Tobacco use: Assessment and plan: Recently quit 05/2024. (10) COPD (chronic obstructive pulmonary disease): Status: Chronic Assessment and plan: On chronic controller and rescue inhalers with chronic hypoxemia on 2L/min NC at home. Continued oxygen supplementation and inhaler therapy in the hospital. Do not reinitiate prednisone pulse therapy unless he has increasing wheezing and respiratory symptoms with his pneumonia. 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 He does have increased pain in his right ankle recently. He is usually on twice a day dosing of oxycodone for phantom pain. Continue to monitor for safety as outpatient with his PCP. As stated, VPMS is appropriate for his history and dosing. History of Present Illness History of Present Illness Chief Complaint: Low blood pressure with transient lightheadedness. Narrative: This is a 64-year-old male patient has had multiple hospitalizations since May when he had a fractured right ankle which was repaired with ORIF but he is not weightbearing. He has been losing weight with a history of diabetes poorly controlled status post left BKA with phantom pain on chronic narcotics without misuse and now chronic right ankle pain with his neuropathy and fractured ankle which is nonweightbearing. He was recent hospitalized with exacerbation of CHF and had his diuretics increased and now presents with acute kidney injury and hypotension with episodes of lightheadedness. He has had no falls. He is chronically on oxygen at 2 L/min per nasal cannula and with COPD. Imaging in the ED did reveal right middle lobe pneumonia and pulmonary vascular congestion with a history of CHF. He was not hypoxic beyond his baseline. He was initiated on IV antibiotic therapy for community-acquired pneumonia with patient's frequent hospitalizations and for gentle IV hydration with the patient having a 250 cc bolus of normal saline and to continue on a low rate of normal saline overnight. His usual antihypertensives and diuretic will be held for now except for metoprolol which would be given at split dosing. His usual inhalers will be continued but he will not be continued on prednisone and finish a course. He is asking for increase oxycodone use because of pain in his ankle and his usual phantom pain. This will be done in the hospital but he will not be discharged on increased narcotic therapy. He can speak to his PCP about this treatment plan. His VPMS was reviewed and was appropriate with a history of twice a day dosing of oxycodone. The patient does not require urine drug screen at this time. He did have a urine drug screen last hospitalization. He is a full code. Review of Systems Narrative: 13 point review of systems otherwise unrevealing or stable. Patient is losing weight and his right leg is less swollen. 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 (Acute) COPD (chronic obstructive pulmonary disease) (Chronic) Pneumonia (Acute) Hypotension due to hypovolemia (Acute) BRAYAN (acute kidney injury) (Acute) Anemia (Chronic) Hyperthyroidism (Chronic) Elevated liver enzymes (Acute) Hx of left BKA (Acute) Hyperlipidemia (Chronic) Hyperkalemia (Acute) Surgical wound infection (Acute) CHF (congestive heart failure) (Chronic) Severe sepsis (Acute) PVD (peripheral vascular disease) (Chronic) Diabetes (Chronic) Diabetic foot ulcer (Chronic) Cellulitis of right ankle (Acute) No-show for appointment (Acute) Medical History Retinal disease, left Uses continuous positive airway pressure (CPAP) ventilation at home Hypotension Dehydration Below-knee amputation of left lower extremity Peripheral neuropathy Cervicalgia Headache, post-traumatic COVID-19 Phantom limb pain Tobacco use Chronic kidney disease, stage III (moderate) Inferior MT 2006 Hx of pancreatitis Exposure to COVID-19 virus 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 CAD (coronary artery disease) multiple stents 2006 Diabetes mellitus GERD (gastroesophageal reflux disease) HTN (hypertension) Hypercholesterolemia DARIO (obstructive sleep apnea) Obesities, morbid Migraine Neuropathy Diabetic foot ulcer Poorly controlled diabetes mellitus Chest pain Surgical History Hx of cardiac catheterization Status post below knee amputation of left lower extremity History of lung biopsy History of heart artery stent S/P foot surgery Social History Smoking/Tobacco Use Status: Former Tobacco Use Quit Date: 05/30/24 Smoking risk assessment performed?: Yes Alcohol Intake: never Drug use: Never Substance use type: does not use Housing: house Do you feel safe at home: Yes Do you feel safe in your relationship?: Yes Meds Allergies and Home Medications Allergies Allergy/AdvReac Type Severity Reaction Status Date / Time Benzodiazepines Allergy Mild Unknown Verified 11/11/24 17:17 hyoscyamine Allergy Mild Unknown Verified 11/11/24 17:17 Penicillins Allergy Unknown tolerated Unverified 11/11/24 17:17 Zosyn on admission 06/2016 insulin glargine, human AdvReac Intermediate Diarrhea Unverified 11/11/24 17:17 recombin. a (From Lantus) liraglutide (From Victoza) AdvReac Intermediate Diarrhea Unverified 11/11/24 17:17 lorazepam AdvReac Intermediate Loopy Unverified 11/11/24 17:17 metformin AdvReac Intermediate Diarrhea Unverified 11/11/24 17:17 methadone AdvReac Intermediate Loopy Unverified 11/11/24 17:17 pregabalin (From Lyrica) AdvReac Intermediate Diarrhea Verified 11/11/24 17:17 gabapentin AdvReac Mild loopy Unverified 11/11/24 17:17 morphine AdvReac Unknown Flushing Unverified 11/11/24 17:17 when given too fast Home Medications ?Medication ?Instructions ?Recorded ?Confirmed ?Type blood-glucose meter ([employer] 07/18/20 10/26/24 History Ultra2 Meter kit) glucagon HCl 1 mg solution for 1 mg IM USEASDIRECTD for severe 07/18/20 11/11/24 History injection (Glucagon (HCl) hypoglycemia Emergency Kit) albuterol sulfate 90 mcg/actuation 1 puff inhalation Q4H PRN 06/07/21 11/11/24 History aerosol inhaler (Ventolin HFA) aspirin 81 mg tablet,delayed 81 mg PO DAILY 06/07/21 11/11/24 History release clopidogrel 75 mg tablet 75 mg PO DAILY 06/07/21 11/11/24 History glucagon 1 mg solution for 1 mg subcut Q20M PRN 06/07/21 11/11/24 History injection (Glucagon Emergency Kit) isosorbide mononitrate 60 mg 60 mg PO DAILY 06/07/21 11/11/24 History tablet,extended release 24 hr metoprolol succinate 100 mg 100 mg PO BID 06/07/21 11/11/24 History tablet,extended release 24 hr ranolazine 500 mg tablet,extended 500 mg PO BID 06/07/21 11/11/24 History release,12 hr blood-glucose sensor (Dexcom G6 08/30/24 10/26/24 History Sensor device) insulin aspart U-100 100 unit/mL See Rx Instructions continuous 08/30/24 11/11/24 History subcutaneous solution (Novolog subcutaneous infusion .COMPLEX U-100 Insulin aspart) pantoprazole 40 mg tablet,delayed 40 mg PO DAILY 08/30/24 11/11/24 History release amlodipine 5 mg tablet 5 mg PO DAILY 10/26/24 11/11/24 History atorvastatin 40 mg tablet 40 mg PO DAILY 10/26/24 11/11/24 History budesonide-formoterol HFA 160 2 puff inhalation BID 10/26/24 11/11/24 History mcg-4.5 mcg/actuation aerosol inhaler (Symbicort) duloxetine 30 mg capsule,delayed 60 mg PO BID 10/26/24 11/11/24 History release (Cymbalta) insulin pump cart,auto,BT,G6/7 10/26/24 10/26/24 History (Omnipod 5 G6-G7 Pods (Gen 5) subcutaneous cartridge) tamsulosin 0.4 mg capsule 0.4 mg PO DAILY 10/26/24 11/11/24 History tiotropium bromide 2.5 2 inh inhalation DAILY 10/26/24 11/11/24 History mcg/actuation mist for inhalation (Spiriva Respimat) losartan 25 mg tablet 12.5 mg (1/2 x 25 mg) PO BID #30 10/31/24 11/11/24 Rx tabs Lactobacillus acidophilus 250 1,000 mmu cells PO DAILY 11/11/24 11/11/24 History million cell capsule (Probiotic Acidophilus) cholecalciferol (vitamin D3) 25 5,000 unit PO DAILY 11/11/24 11/11/24 History mcg (1,000 unit) tablet (Vitamin D3) docusate sodium 100 mg capsule 100 mg PO DAILY 11/11/24 11/11/24 History (Colace) doxycycline hyclate 100 mg tablet 100 mg PO BID 11/11/24 11/11/24 History insulin glargine-yfgn 100 unit/mL 30 unit subcut QPM 11/11/24 11/11/24 History (3 mL) subcutaneous pen (Semglee (insulin glargine-yfgn) Pen) nitroglycerin 0.4 mg sublingual 0.4 mg sublingual Q5M PRN 11/11/24 11/11/24 History tablet oxycodone-acetaminophen 10 mg-325 1 tab PO BID 11/11/24 11/11/24 History mg tablet torsemide 20 mg tablet 20 mg PO BID 11/11/24 11/11/24 History Exam Narrative Exam Narrative: General: Patient appears older than stated age, moderately obese, alert and oriented x 3 and in no acute distress. HEENT: Normocephalic, eyes with pupils equal and react to light symmetrically, extraocular movement intact and sclera anicteric. Oropharynx with dry mucosa and fair dentition. Neck: Supple without JVD. Back: Stooped posture without CVA tenderness. Lungs: Coarse rhonchi clearing with cough, no focalizing rales or rhonchi, fair aeration. Bronchovesicular breath sounds diffusely. No expiratory wheeze. Heart: Regular rate and rhythm with no murmurs or gallops appreciated. Abdomen: Obese contour, soft and nontender to palpation with no palpable hepatosplenomegaly. Bowel sounds positive in all quadrants. Genitalia/rectal: Exam deferred. Skin: Normal color, moist and warm to touch. Actinic changes over sun exposed areas. Hyperpigmentation and shiny atrophic skin over right leg and ankle. Dry bandage/sock over anterior ulcer of right ankle. Extremities: Without clubbing, cyanosis or pitting edema with gross hard edema right lower extremity below knee. Left BKA stump is clean and wrapped in Delfin. No other joint abnormalities. Fair cap refill. Neuro: Cranial nerves II through XII gross intact, no focalizing motor deficit. No tremor. Psych: Normal affect and mood. Patient does have slightly pressured speech. No abnormal thought processes. Remote and recent memory intact. Results Imaging Imaging Studies: EXAM: XR CHEST 2V PA LATERAL CLINICAL HISTORY: SOB, cough productive of sputum TECHNIQUE: 2D digital imaging was performed. Two views. COMPARISON: CR,XR XR RIBS LT W PA LAT CHEST from 05/24/2020 CR,XR XR PORTABLE CHEST AP from 12/22/[address] CHEST LUNG CANCER SCREEN from 09/25/2023 CR XR PORTABLE CHEST AP from 10/26/2024 FINDINGS: The exam is limited, performed on a stretcher. The exam is under penetrated. HEART: Enlarged. Coronary artery stent. Aorta: Not dilated. Calcification at arch. PULMONARY VASCULATURE: Prominent. MEDIASTINUM: Unremarkable. LUNGS: Increased interstitial markings throughout. There is in abnormal increased densities in the right middle lobe. PLEURAL SPACE: Tiny right pleural effusion. No pneumothorax. BONE:Unremarkable for age. SOFT TISSUES: Unremarkable. IMPRESSION: Limited exam due to under penetration at the lung bases. Increased densities at the right middle lobe suspicious for pneumonia. Increased interstitial markings pulmonary vascular prominence could indicate mild CHF. Echocardiogram 10/27/2024 Decreased LVEF 20-25% Decreased from previous measuremnt Labs 11/12/24 06:18 11/11/24 18:00 Labs: Laboratory Results - last 24 hr 11/11/24 11/11/24 18:00 19:18 WBC 12.91 H RBC 4.17 L Hgb 11.0 L Hct 35.9 L MCV 86 MCH 26.4 L MCHC 30.6 L RDW 16.8 H Plt Count 250 MPV 10.9 Immature Gran % 0.6 Neutrophils % 74.7 Lymphocytes % 13.3 Monocytes % 7.2 Eosinophils % 3.6 Basophils % 0.6 Nucleated RBC % 0.0 Absolute Neutrophils 9.64 H Absolute Lymphocytes 1.72 Absolute Monocytes 0.93 H Absolute Eosinophils 0.46 Absolute Basophils 0.08 VBG pH 7.40 VBG pCO2 46 VBG pO2 44 VBG HCO3 29 H VBG Total CO2 27 VBG O2 Saturation 78 VBG Base Excess 4 H VBG Lactate 1.3 Sodium 137 Potassium 3.4 L Chloride 100 Carbon Dioxide 28.9 Anion Gap 8.1 BUN 57 H Creatinine 3.0 H Est GFR (CKD-EPI 2020) 22.77 Glucose 276 H Calcium 9.1 Total Bilirubin 0.8 AST 12 L ALT 12 L Alkaline Phosphatase 222 H Troponin I 21 20 NT-Pro-B Natriuret Pep 7340 H Total Protein 7.0 Albumin 2.5 L Last Vital Signs Temp 35.9 C L 11/11/24 16:55 Pulse 65 11/11/24 19:04 Resp 18 11/11/24 19:04 BP 102/40 L 11/11/24 16:55 Pulse Ox 92 11/11/24 16:55 Time Spent Time spent with Patient: >75 minutes Time was spent: preparing to see the patient(eg.review tests), obtaining and/or reviewing separately otained hiistory, ordering medications,tests, procedures, indepentently interpreting results, counseling the patient and care coordination
[2024-11-11] MEDS: Normal Saline 250 ML IV (21:30)
[2024-11-11 21:45] LABS: COVID-19 PCR Negative (Negative); Influenza A PCR Negative (Negative); Influenza B PCR Negative (Negative); RSV PCR Negative (Negative)
[2024-11-11 21:50] LABS: Source Nasopharynx
[2024-11-11 23:20] LABS: Bilirubin Negative (Negative); Blood Negative (Negative); Clarity Clear (Clear); Glucose Negative (Negative); Ketones Negative (Negative); Leukocyte Esterase Small (Negative); Nitrite Negative (Negative); Specific Gravity 1.025 (1.005-1.025); Urobilinogen 0.2 mg/dL (Up to 0.2); pH 5.5 (5-8)
[2024-11-11 23:28] LABS: Bacteria Rare HPF (Negative); C & S Indicated? No/Sq. Contamination; Casts 3-5 Hyaline LPF (Negative); Crystals Negative HPF (Negative); Epithelial Cells Moderate HPF (Negative); Mucus Trace (Negative); Other Cells Rare Yeast (Negative); RBC Negative HPF (0-2); WBC 20-50 HPF (0-5)
[2024-11-11 23:36] LABS: Magnesium 1.7 mg/dL (1.8-2.4); TSH (W/Ref FT4) 0.13 uIU/mL (0.36-3.74)
[2024-11-12] VITALS (11 sets, daily range): BP systolic 91–135; BP diastolic 63–88; PULSE 64–78; RESP 14–22; TEMP 36.5–37.1; O2SAT 92–99
[2024-11-12 00:06] LABS: FREE T4 1.41 ng/dL (0.76-1.46)
[2024-11-12] MEDS: Normal Saline 1,000 ML 80 ML IV ×2 (00:07→14:40)
[2024-11-12] MEDS: POTASSIUM CHLORIDE 10 MEQ/100 ML BAG 100 MEQ IV_INF (00:11)
[2024-11-12] MEDS: Acetaminophen 325 MG TAB PO ×3 (00:13→19:38)
[2024-11-12] MEDS: CEFEPIME 1 GM in Normal Saline 50 ML IVPB ×3 (01:16→17:30)
[2024-11-12] MEDS: Cefepime 1 GM VIAL (01:37)
[2024-11-12] MEDS: DOXYCYCLINE 100 MG in Normal Saline 100 ML IVPB ×3 (01:50→22:12)
[2024-11-12] MEDS: Metoprolol 25 MG TAB PO ×4 (02:03→17:31)
[2024-11-12] MEDS: VANCOMYCIN 2,000 MG in Normal Saline 500 ML 250 MG IVPB (03:09)
[2024-11-12] MEDS: Insulin Aspart 300 UNITS/3 ML PEN SC ×5 (03:14→22:14)
--- NOTE | 2024-11-12 04:43 | W.PC.ACHO ---
Registration Status: Primary Language: Preferred Language: ED Information & Data Chief Complaint Dizzy/Sync 11/11/24 21:14 Chief Complaint Dizzy/Sync 11/11/24 17:39 Triage Note pt found to be hypotensive 11/11/24 16:55 by HH today ~ 11am. 80's to 90's SBP. does take medication for HTN. vision has been worse today. feels dizzy and lightheaded. Medical / Surgical History (Last Reviewed 11/12/24 @ 00:57 by Ken Neely) Retinal disease, left Uses continuous positive airway pressure (CPAP) ventilation at home Hypotension Dehydration Below-knee amputation of left lower extremity Peripheral neuropathy Cervicalgia Headache, post-traumatic COVID-19 Phantom limb pain Tobacco use Chronic kidney disease, stage III (moderate) Inferior [place] Hx of pancreatitis Exposure to COVID-19 virus Dissection of artery of upper extremity CAD (coronary artery disease) Diabetes mellitus GERD (gastroesophageal reflux disease) HTN (hypertension) Hypercholesterolemia DARIO (obstructive sleep apnea) Obesities, morbid Migraine Neuropathy Diabetic foot ulcer Poorly controlled diabetes mellitus Chest pain (Last Reviewed 11/12/24 @ 00:57 by Ken Neely) Hx of cardiac catheterization Status post below knee amputation of left lower extremity History of lung biopsy History of heart artery stent S/P foot surgery Most Recent Vital Signs Temperature 36.2 C L 11/11/24 23:07 Temperature Source Tympanic 11/11/24 23:07 Pulse 66 11/11/24 23:07 Pulse Rhythm Regular 11/11/24 23:18 Pulse 69 11/11/24 22:01 Respiratory Rate 20 11/11/24 23:07 Respiratory Effort Normal, Short of Breath 11/11/24 23:18 Respiratory Depth Normal 11/11/24 23:18 Respiratory Pattern Normal 11/11/24 23:18 Blood Pressure 120/70 11/12/24 02:04 Blood Pressure Mean 100 11/11/24 22:01 Pulse Oximetry 95 11/11/24 23:07 Oxygen Delivery Method Nasal Cannula 11/11/24 23:07 Oxygen Flow Rate 2 11/11/24 23:07 Pain Level 7 11/12/24 01:13 Comment leg / ankle pain 11/11/24 16:55 Allergies Benzodiazepines Allergy (Mild, Verified 11/11/24 17:17) Unknown hyoscyamine Allergy (Mild, Verified 11/11/24 17:17) Unknown Penicillins Allergy (Unknown, Unverified 11/11/24 17:17) tolerated Zosyn on admission 06/2016 pt. doesn't know. insulin glargine, human recombin. a (From Lantus) Adverse Reaction (Intermediate, Unverified 11/11/24 17:17) Diarrhea liraglutide (From Victoza) Adverse Reaction (Intermediate, Unverified 11/11/24 17:17) Diarrhea lorazepam Adverse Reaction (Intermediate, Unverified 11/11/24 17:17) Loopy metformin Adverse Reaction (Intermediate, Unverified 11/11/24 17:17) Diarrhea methadone Adverse Reaction (Intermediate, Unverified 11/11/24 17:17) Loopy pregabalin (From Lyrica) Adverse Reaction (Intermediate, Verified 11/11/24 17:17) Diarrhea gabapentin Adverse Reaction (Mild, Unverified 11/11/24 17:17) loopy morphine Adverse Reaction (Unknown, Unverified 11/11/24 17:17) Flushing when given too fast Precautions Isolation Standard precaution 11/11/24 21:14 Active Medications Generic Name Dose Route Start Last Admin Trade Name Freq PRN Reason Stop Dose Admin Acetaminophen 0 mg 11/11/24 22:45 11/12/24 00:13 Acetaminophen 325 Mg Tab PO 650 mg Q4H PRN PRN Administration Sodium Chloride 1,000 mls @ 80 mls/hr 11/11/24 22:45 11/12/24 00:07 Saline 1000ml Bag IV 80 mls/hr INFUSION OXANA Administration Cefepime HCl 1 gm/ Sodium 50 mls @ 100 mls/hr 11/11/24 22:00 11/12/24 01:50 Chloride IVPB Infused Q8H OXANA Infusion Doxycycline Hyclate 100 mg/ 100 mls @ 100 mls/hr 11/12/24 00:00 11/12/24 02:50 Sodium Chloride IVPB Infused Q12H OXANA Infusion Insulin Aspart 0 units 11/11/24 22:45 11/12/24 03:14 Insulin Aspart 300 Units/3 Ml Pen SC 4 units 0800,1200,1700,2200 OXANA Administration Protocol Metoprolol Tartrate 25 mg 11/12/24 00:00 11/12/24 02:03 Metoprolol 25 Mg Tab PO 25 mg Q6H OXANA Administration IV IV Catheter Type [Left Saline Lock Antecubital] IV Catheter Gauge [Left 18 Antecubital] Diet Orders Category Date Time Status Diabetes Consistent CHO/Heart Healthy [DIET] Nutrition 11/12/24 Breakfast Active Diagnostics 11/12/24 11/11/24 11/11/24 Range/Units 05:35 23:00 20:57 WBC Pending (4.4-10.8) 10^3/uL RBC Pending (4.36-5.78) 10^6/uL Hgb Pending (13.5-17.5) g/dL Hct Pending (40.0-50.0) % MCV Pending (80-95) fL MCH Pending (27.0-33.0) pg MCHC Pending (32.0-36.0) % RDW Pending (11.8-14.1) % Plt Count Pending (130-400) 10^3/uL MPV Pending (8.0-11.0) fL Immature Gran % % Neutrophils % % Lymphocytes % % Monocytes % % Eosinophils % % Basophils % % Nucleated RBC % (0.0-0.3) % Absolute Neutrophils (1.2-6.7) 10^3/uL Absolute Lymphocytes (1.2-3.4) 10^3/uL Absolute Monocytes (0.1-0.8) 10^3/uL Absolute Eosinophils (0.0-0.7) 10^3/uL Absolute Basophils (0.0-0.2) 10^3/uL VBG pH (7.31-7.41) VBG pCO2 (41-51) mmHg VBG pO2 mmHg VBG HCO3 (23-28) mmol/L VBG Total CO2 (24-29) mmol/L VBG O2 Saturation % VBG Base Excess (-2-3) mmol/L VBG Lactate (<or=2.0) mmol/L Sodium Pending (136-145) mmol/L Potassium Pending (3.5-5.1) mmol/L Chloride Pending (98-107) mmol/L Carbon Dioxide Pending (21.0-32.0) mmol/L Anion Gap Pending (3-11) mmol/L BUN Pending (7-18) mg/dL Creatinine Pending (0.70-1.30) mg/dL Est GFR (CKD-EPI 2020) Pending (mL/min/1.73m2) Glucose Pending (74-106) mg/dL Calcium Pending (8.5-10.1) mg/dL Magnesium Pending (1.8-2.4) mg/dL Total Bilirubin Pending (0.2-1.0) mg/dL AST Pending (15-37) U/L ALT Pending (16-63) U/L Alkaline Phosphatase Pending (46-116) U/L Troponin I (<or=76) ng/L NT-Pro-B Natriuret Pep (<300) pg/mL Total Protein Pending (6.4-8.2) g/dL Albumin Pending (3.4-5.0) g/dL TSH (0.36-3.74) uIU/mL Free T4 (0.76-1.46) ng/dL Urine Color Dark Yellow (Yellow) Urine Clarity Clear (Clear) Urine pH 5.5 (5-8) Ur Specific [place] 1.025 (1.005-1.025) Urine Protein >=300 H (Neg-Trace) mg/dL Urine Ketones Negative (Negative) mg/dL Urine Blood Negative (Negative) Urine Nitrite Negative (Negative) Urine Bilirubin Negative (Negative) Urine Urobilinogen 0.2 (Up to 0.2) mg/dL Ur Leukocyte Esterase Small H (Negative) Urine RBC Negative (0-2) HPF Urine WBC 20-50 H (0-5) HPF Ur Epithelial Cells Moderate (Negative) HPF Urine Crystals Negative (Negative) HPF Urine Bacteria Rare (Negative) HPF Urine Casts 3-5 Hyaline (Negative) LPF Urine Mucus Trace (Negative) Urine Other Rare Yeast (Negative) Ur Culture Indicated? No/Sq. Contamination Urine Glucose Negative (Negative) mg/dL COVID-19 Source Nasopharynx SARS-CoV-2 (PCR) Negative (Negative) Influenza Type A (PCR) Negative (Negative) Influenza Type B (PCR) Negative (Negative) RSV (PCR) Negative (Negative) 11/11/24 11/11/24 Range/Units 19:18 18:00 WBC 12.91 H (4.4-10.8) 10^3/uL RBC 4.17 L (4.36-5.78) 10^6/uL Hgb 11.0 L (13.5-17.5) g/dL Hct 35.9 L (40.0-50.0) % MCV 86 (80-95) fL MCH 26.4 L (27.0-33.0) pg MCHC 30.6 L (32.0-36.0) % RDW 16.8 H (11.8-14.1) % Plt Count 250 (130-400) 10^3/uL MPV 10.9 (8.0-11.0) fL Immature Gran % 0.6 % Neutrophils % 74.7 % Lymphocytes % 13.3 % Monocytes % 7.2 % Eosinophils % 3.6 % Basophils % 0.6 % Nucleated RBC % 0.0 (0.0-0.3) % Absolute Neutrophils 9.64 H (1.2-6.7) 10^3/uL Absolute Lymphocytes 1.72 (1.2-3.4) 10^3/uL Absolute Monocytes 0.93 H (0.1-0.8) 10^3/uL Absolute Eosinophils 0.46 (0.0-0.7) 10^3/uL Absolute Basophils 0.08 (0.0-0.2) 10^3/uL VBG pH 7.40 (7.31-7.41) VBG pCO2 46 (41-51) mmHg VBG pO2 44 mmHg VBG HCO3 29 H (23-28) mmol/L VBG Total CO2 27 (24-29) mmol/L VBG O2 Saturation 78 % VBG Base Excess 4 H (-2-3) mmol/L VBG Lactate 1.3 (<or=2.0) mmol/L Sodium 137 (136-145) mmol/L Potassium 3.4 L (3.5-5.1) mmol/L Chloride 100 (98-107) mmol/L Carbon Dioxide 28.9 (21.0-32.0) mmol/L Anion Gap 8.1 (3-11) mmol/L BUN 57 H (7-18) mg/dL Creatinine 3.0 H (0.70-1.30) mg/dL Est GFR (CKD-EPI 2020) 22.77 (mL/min/1.73m2) Glucose 276 H (74-106) mg/dL Calcium 9.1 (8.5-10.1) mg/dL Magnesium 1.7 L (1.8-2.4) mg/dL Total Bilirubin 0.8 (0.2-1.0) mg/dL AST 12 L (15-37) U/L ALT 12 L (16-63) U/L Alkaline Phosphatase 222 H (46-116) U/L Troponin I 20 21 (<or=76) ng/L NT-Pro-B Natriuret Pep 7340 H (<300) pg/mL Total Protein 7.0 (6.4-8.2) g/dL Albumin 2.5 L (3.4-5.0) g/dL TSH 0.13 L (0.36-3.74) uIU/mL Free T4 1.41 (0.76-1.46) ng/dL Urine Color (Yellow) Urine Clarity (Clear) Urine pH (5-8) Ur Specific [place] (1.005-1.025) Urine Protein (Neg-Trace) mg/dL Urine Ketones (Negative) mg/dL Urine Blood (Negative) Urine Nitrite (Negative) Urine Bilirubin (Negative) Urine Urobilinogen (Up to 0.2) mg/dL Ur Leukocyte Esterase (Negative) Urine RBC (0-2) HPF Urine WBC (0-5) HPF Ur Epithelial Cells (Negative) HPF Urine Crystals (Negative) HPF Urine Bacteria (Negative) HPF Urine Casts (Negative) LPF Urine Mucus (Negative) Urine Other (Negative) Ur Culture Indicated? Urine Glucose (Negative) mg/dL COVID-19 Source SARS-CoV-2 (PCR) (Negative) Influenza Type A (PCR) (Negative) Influenza Type B (PCR) (Negative) RSV (PCR) (Negative) 11/12/24 01:11 Blood Culture - Pending Blood 11/12/24 01:00 Blood Culture - Pending Blood [id number] Documentation Fingerstick Glucose Start: 11/11/24 22:45 Freq: AC & HS Status: Active Protocol: Activity Type Activity Date Activity User E-sign Co-sign Detail Recorded Client Recorded Date Recorded By Document 11/12/24 03:14 BKG DAEMON(3) [id number] 11/12/24 03:14 BKG DAEMON(4) Intake and Output - 24 Hour Total 11/11/24 16:46 thru 11/12/24 02:50 Intake Total 500 Output Total 500 Balance 0 Weight 131.542 kg Intake: IV 500 Output: Urine 500 Other: Urine Color Dark Aurelio Urine Odor [place] Risk Assessment History of Falls Previous History 11/11/24 23:18 Contributing Factors No Factors 11/11/24 23:18 Ambulatory Aids Uses ambulatory device + 11/11/24 23:18 Tubes/Lines With any additional score 11/11/24 23:18 Gait Evaluation W/any additional score 11/11/24 23:18 Fall Total Score 85 11/11/24 23:18 Level of Risk Maximum Risk 11/11/24 23:18 Problems (Last Reviewed 11/12/24 @ 00:57 by Ken Neely) 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 (Acute) COPD (chronic obstructive pulmonary disease) (Chronic) Pneumonia (Acute) Hypotension due to hypovolemia (Acute) BRAYAN (acute kidney injury) (Acute) CHF (congestive heart failure) (Chronic) v v v v v v v v v Sending and/or Receiving Nurses: Please use comment section below to note any information pertinent to the patient hand-off not included above. Information / Comments: alert and orientated, VSS. 2L NC baseline. IV antibiotics. bedrest. Report received from: aurelio
[2024-11-12] MEDS: VANCOMYCIN 500 MG in Normal Saline 100 ML 100 MG IVPB (05:34)
[2024-11-12 06:38] LABS: HCT 33.6 % (40.0-50.0); HGB 10.1 g/dL (13.5-17.5); MCH 25.8 pg (27.0-33.0); MCHC 30.1 % (32.0-36.0); MCV 86 fL (80-95); MPV 11.3 fL (8.0-11.0); Platelet Count 223 10^3/uL (130-400); RBC 3.92 10^6/uL (4.36-5.78); RDW 16.8 % (11.8-14.1); RDW-SD 52.8 fL; WBC 12.48 10^3/uL (4.4-10.8)
[2024-11-12 07:21] LABS: ALT 12 U/L (16-63); AST 14 U/L (15-37); Albumin 2.2 g/dL (3.4-5.0); Alkaline Phosphatase 193 U/L (46-116); Anion Gap 8.9 mmol/L (3-11); BUN 56 mg/dL (7-18); Bilirubin, Total 0.5 mg/dL (0.2-1.0); CO2 29.1 mmol/L (21.0-32.0); CREATININE 2.9 mg/dL (0.70-1.30); Calcium 8.4 mg/dL (8.5-10.1); Chloride 103 mmol/L (98-107); Estimated GFR 23.72 (mL/min/1.73m2); Glucose 157 mg/dL (74-106); Magnesium 1.6 mg/dL (1.8-2.4); Potassium 3.6 mmol/L (3.5-5.1); Sodium 141 mmol/L (136-145); Total Protein 6.3 g/dL (6.4-8.2)
[2024-11-12] MEDS: Budesonide/Formoterol 160/4.5 6 GM 60 PUFF INH IH ×2 (08:17→20:27)
[2024-11-12] MEDS: Tiotropium Bromide-Respimat 10 PUFF INH 2 PUFF IH (08:17)
[2024-11-12] MEDS: Enoxaparin 30 MG/0.3 ML SYR SC (08:19)
[2024-11-12] MEDS: Normal Saline Flush 10 ML SYR IVP ×2 (08:19→19:38)
[2024-11-12] MEDS: Cholecalciferol (Vitamin D3) 1,000 UNIT TAB 5000 UNITS PO (08:21)
[2024-11-12] MEDS: Isosorbide Mononitrate 60 MG TABCR PO (08:21)
[2024-11-12] MEDS: Ranolazine 500 MG TABCR PO ×2 (08:21→19:38)
[2024-11-12] MEDS: Lactobacillus Acidophilus CAP 1 CAP PO (08:21)
[2024-11-12] MEDS: DULoxetine 30 MG CAP 60 MG PO ×2 (08:22→19:39)
[2024-11-12] MEDS: Aspirin E.C. 81 MG TABEC PO (08:22)
[2024-11-12] MEDS: Clopidogrel 75 MG TAB PO (08:22)
[2024-11-12] MEDS: Tamsulosin 0.4 MG CAPCR PO (08:22)
[2024-11-12] MEDS: Pantoprazole 40 MG TABCR PO (08:23)
[2024-11-12] MEDS: Atorvastatin 40 MG TAB PO (08:23)
[2024-11-12] MEDS: Docusate Sodium 100 MG CAP PO (08:23)
--- NOTE | 2024-11-12 08:43 | HPE_ITS ---
Date of service: 11/28/24 Time of Service: 13:42 PENDING SALE TO [facility] All Active Problems (Updated 11/16/24 @ 00:03 by HARRY MENON) 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 (Acute) COPD (chronic obstructive pulmonary disease) (Chronic) Anemia (Chronic) Hyperthyroidism (Chronic) Elevated liver enzymes (Acute) Hx of left BKA (Acute) Hyperlipidemia (Chronic) Hyperkalemia (Acute) Surgical wound infection (Acute) CHF (congestive heart failure) (Chronic) Severe sepsis (Acute) PVD (peripheral vascular disease) (Chronic) Diabetes (Chronic) Diabetic foot ulcer (Chronic) Cellulitis of right ankle (Acute) No-show for appointment (Acute) Medical History Retinal disease, left Uses continuous positive airway pressure (CPAP) ventilation at home Hypotension Dehydration Below-knee amputation of left lower extremity Peripheral neuropathy Cervicalgia Headache, post-traumatic COVID-19 Phantom limb pain Tobacco use Chronic kidney disease, stage III (moderate) Inferior [place] 2006 Hx of pancreatitis Exposure to COVID-19 virus 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 CAD (coronary artery disease) multiple stents 2006 Diabetes mellitus GERD (gastroesophageal reflux disease) HTN (hypertension) Hypercholesterolemia DARIO (obstructive sleep apnea) Obesities, morbid Migraine Neuropathy Diabetic foot ulcer Poorly controlled diabetes mellitus Chest pain Surgical History Hx of cardiac catheterization Status post below knee amputation of left lower extremity History of lung biopsy History of heart artery stent S/P foot surgery Social History Smoking/Tobacco Use Status: Former Tobacco Use Quit Date: 05/30/24 Smoking risk assessment performed?: Yes Alcohol Intake: never Drug use: Never Substance use type: does not use Housing: house Do you feel safe at home: Yes Do you feel safe in your relationship?: Yes Meds Allergies and Home Medications Allergies Allergy/AdvReac Type Severity Reaction Status Date / Time Benzodiazepines Allergy Mild Unknown Verified 11/11/24 17:17 hyoscyamine Allergy Mild Unknown Verified 11/11/24 17:17 Penicillins Allergy Unknown tolerated Unverified 11/11/24 17:17 Zosyn on admission 06/2016 insulin glargine, human AdvReac Intermediate Diarrhea Unverified 11/11/24 17:17 recombin. a (From Lantus) liraglutide (From Victoza) AdvReac Intermediate Diarrhea Unverified 11/11/24 17:17 lorazepam AdvReac Intermediate Loopy Unverified 11/11/24 17:17 metformin AdvReac Intermediate Diarrhea Unverified 11/11/24 17:17 methadone AdvReac Intermediate Loopy Unverified 11/11/24 17:17 pregabalin (From Lyrica) AdvReac Intermediate Diarrhea Verified 11/11/24 17:17 gabapentin AdvReac Mild loopy Unverified 11/11/24 17:17 morphine AdvReac Unknown Flushing Unverified 11/11/24 17:17 when given too fast Home Medications ?Medication ?Instructions ?Recorded ?Confirmed ?Type blood-glucose meter (OneTouch 07/18/20 11/13/24 History Ultra2 Meter kit) glucagon HCl 1 mg solution for 1 mg IM USEASDIRECTD for severe 07/18/20 11/11/24 History injection (Glucagon (HCl) hypoglycemia Emergency Kit) albuterol sulfate 90 mcg/actuation 1 puff inhalation Q4H PRN 06/07/21 11/11/24 History aerosol inhaler (Ventolin HFA) aspirin 81 mg tablet,delayed 81 mg PO DAILY 06/07/21 11/11/24 History release clopidogrel 75 mg tablet 75 mg PO DAILY 06/07/21 11/11/24 History glucagon 1 mg solution for 1 mg subcut Q20M PRN 06/07/21 11/11/24 History injection (Glucagon Emergency Kit) isosorbide mononitrate 60 mg 60 mg PO DAILY 06/07/21 11/11/24 History tablet,extended release 24 hr metoprolol succinate 100 mg 100 mg PO BID 06/07/21 11/11/24 History tablet,extended release 24 hr ranolazine 500 mg tablet,extended 500 mg PO BID 06/07/21 11/11/24 History release,12 hr blood-glucose sensor ([employer] [place] G6 08/30/24 11/13/24 History Sensor device) insulin aspart U-100 100 unit/mL See Rx Instructions continuous 08/30/24 11/11/24 History subcutaneous solution (Novolog subcutaneous infusion .COMPLEX U-100 Insulin aspart) pantoprazole 40 mg tablet,delayed 40 mg PO DAILY 08/30/24 11/11/24 History release amlodipine 5 mg tablet 5 mg PO DAILY 10/26/24 11/11/24 History atorvastatin 40 mg tablet 40 mg PO DAILY 10/26/24 11/11/24 History budesonide-formoterol HFA 160 2 puff inhalation BID 10/26/24 11/11/24 History mcg-4.5 mcg/actuation aerosol inhaler (Symbicort) duloxetine 30 mg capsule,delayed 60 mg PO BID 10/26/24 11/11/24 History release (Cymbalta) insulin pump cart,auto,BT,G6/7 10/26/24 11/13/24 History (Omnipod 5 G6-G7 Pods (Gen 5) subcutaneous cartridge) tamsulosin 0.4 mg capsule 0.4 mg PO DAILY 10/26/24 11/11/24 History tiotropium bromide 2.5 2 inh inhalation DAILY 10/26/24 11/11/24 History mcg/actuation mist for inhalation (Spiriva Respimat) Lactobacillus acidophilus 250 1,000 mmu cells PO DAILY 11/11/24 11/11/24 History million cell capsule (Probiotic Acidophilus) cholecalciferol (vitamin D3) 25 5,000 unit PO DAILY 11/11/24 11/11/24 History mcg (1,000 unit) tablet (Vitamin D3) docusate sodium 100 mg capsule 100 mg PO DAILY 11/11/24 11/11/24 History (Colace) insulin glargine-yfgn 100 unit/mL 30 unit subcut QPM 11/11/24 11/11/24 History (3 mL) subcutaneous pen (Semglee (insulin glargine-yfgn) Pen) nitroglycerin 0.4 mg sublingual 0.4 mg sublingual Q5M PRN 11/11/24 11/11/24 History tablet oxycodone-acetaminophen 10 mg-325 1 tab PO BID 11/11/24 11/11/24 History mg tablet torsemide 20 mg tablet 20 mg PO BID 11/11/24 11/11/24 History levofloxacin 750 mg tablet 750 mg PO Q48H #3 tabs 11/15/24 Rx Results Labs 11/15/24 09:13 11/15/24 09:13 Labs: Laboratory Results - last 24 hr 11/11/24 11/11/24 11/11/24 18:00 19:18 20:57 WBC 12.91 H RBC 4.17 L Hgb 11.0 L Hct 35.9 L MCV 86 MCH 26.4 L MCHC 30.6 L RDW 16.8 H Plt Count 250 MPV 10.9 Immature Gran % 0.6 Neutrophils % 74.7 Lymphocytes % 13.3 Monocytes % 7.2 Eosinophils % 3.6 Basophils % 0.6 Nucleated RBC % 0.0 Absolute Neutrophils 9.64 H Absolute Lymphocytes 1.72 Absolute Monocytes 0.93 H Absolute Eosinophils 0.46 Absolute Basophils 0.08 VBG pH 7.40 VBG pCO2 46 VBG pO2 44 VBG HCO3 29 H VBG Total CO2 27 VBG O2 Saturation 78 VBG Base Excess 4 H VBG Lactate 1.3 Sodium 137 Potassium 3.4 L Chloride 100 Carbon Dioxide 28.9 Anion Gap 8.1 BUN 57 H Creatinine 3.0 H Est GFR (CKD-EPI 2020) 22.77 Glucose 276 H Calcium 9.1 Magnesium 1.7 L Total Bilirubin 0.8 AST 12 L ALT 12 L Alkaline Phosphatase 222 H Troponin I 21 20 NT-Pro-B Natriuret Pep 7340 H Total Protein 7.0 Albumin 2.5 L TSH 0.13 L Free T4 1.41 Urine Color Urine Clarity Urine pH Ur Specific [place] Urine Protein Urine Ketones Urine Blood Urine Nitrite Urine Bilirubin Urine Urobilinogen Ur Leukocyte Esterase Urine RBC Urine WBC Ur Epithelial Cells Urine Crystals Urine Bacteria Urine Casts Urine Mucus Urine Other Ur Culture Indicated? Urine Glucose COVID-19 Source Nasopharynx SARS-CoV-2 (PCR) Negative Influenza Type A (PCR) Negative Influenza Type B (PCR) Negative RSV (PCR) Negative 11/11/24 11/12/24 23:00 06:18 WBC 12.48 H RBC 3.92 L Hgb 10.1 L Hct 33.6 L MCV 86 MCH 25.8 L MCHC 30.1 L RDW 16.8 H Plt Count 223 MPV 11.3 H Immature Gran % Neutrophils % Lymphocytes % Monocytes % Eosinophils % Basophils % Nucleated RBC % Absolute Neutrophils Absolute Lymphocytes Absolute Monocytes Absolute Eosinophils Absolute Basophils VBG pH VBG pCO2 VBG pO2 VBG HCO3 VBG Total CO2 VBG O2 Saturation VBG Base Excess VBG Lactate Sodium 141 Potassium 3.6 Chloride 103 Carbon Dioxide 29.1 Anion Gap 8.9 BUN 56 H Creatinine 2.9 H Est GFR (CKD-EPI 2020) 23.72 Glucose 157 H Calcium 8.4 L Magnesium 1.6 L Total Bilirubin 0.5 AST 14 L ALT 12 L Alkaline Phosphatase 193 H Troponin I NT-Pro-B Natriuret Pep Total Protein 6.3 L Albumin 2.2 L TSH Free T4 Urine Color Dark Yellow Urine Clarity Clear Urine pH 5.5 Ur Specific [place] 1.025 Urine Protein >=300 H Urine Ketones Negative Urine Blood Negative Urine Nitrite Negative Urine Bilirubin Negative Urine Urobilinogen 0.2 Ur Leukocyte Esterase Small H Urine RBC Negative Urine WBC 20-50 H Ur Epithelial Cells Moderate Urine Crystals Negative Urine Bacteria Rare Urine Casts 3-5 Hyaline Urine Mucus Trace Urine Other Rare Yeast Ur Culture Indicated? No/Sq. Contamination Urine Glucose Negative COVID-19 Source SARS-CoV-2 (PCR) Influenza Type A (PCR) Influenza Type B (PCR) RSV (PCR) Last Vital Signs Temp 36.5 C 11/12/24 07:20 Pulse 70 11/12/24 07:20 Resp 14 11/12/24 07:20 BP 120/72 11/12/24 07:20 Pulse Ox 92 11/12/24 07:20 Time Spent Time spent with Patient: <40 minutes Time was spent: preparing to see the patient(eg.review tests), obtaining and/or reviewing separately otained hiistory, ordering medications,tests, procedures, referring, communicating with other health healthcare analyst, indepentently interpreting results, counseling the patient and care coordination
--- NOTE | 2024-11-12 11:44 | INITIAL_ITS ---
Date of service: 11/12/24 Time of Service: 11:44 Care Management Initial Assmt Initial Assessment Reason for Hospitalization: Hypertension with BRAYAN, pneumonia Functional Status/Living Situation Patient Presentation: Edward was sitting up in bed when CM met with him; he is pleasant and easy to engage in conversation. Ed recently discharged from [facility] on 10/31/24 and reports that things had been going well. Per pt, Home Health went out to see him, he was able to follow up with his PCP and soon after was approved for home O2. He had an appointment to meet with the COA today, and his is going to reschedule it. He lives in a mobile home in [place] with his Helio. He has one adult son who lives in [place] with whom he has a close relationship. 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 He is independent with ADLs but does use a cane or walker depending on his activity. Town of Residence: [place] Resides with: Spouse (Imani Jones) Significant Other/Family: Local (Son lives in [place]) Employment Status: Disabled Instrumental Activities of Daily Living (ADLs): Independent Medications Medication Management: No Issues/Barriers identified Physical Functioning/Mobility Assistive Device: walker and cane, wheelchair Advance Directives Advance Directives: Do you have an Advance Directive: Y 04/13/21 11:18 AD On File at [facility]: N 04/13/21 11:18 Date Asked 11/11/24 11/11/24 17:07 AD Date Reviewed COLST On File at [facility] COLST Date Scanned Code Status Resuscitation Status Full Code Portal Pt does not currently have a portal and education provided: Yes Insurance Coverage/Financial Issues Insurance: Medicare Care Team Visit Care Team Role Provider Type Oz Coleman MD MD [facility] STAFF PHYSICIAN Kalli Gamble MD Primary Care Provider [facility] STAFF PHYSICIAN Daphnie Diaz Emergency Provider NURSE PRACTITIONER Ken Neely Admit Provider NON-[facility] STAFF PHYSICIAN Attending Provider Discharge Potential Discharge Needs: PCP F/U Appt Anticipated Barriers to Discharge: None Identified Patient/Family Education Needs: Review discharge instructions, discuss Ask Me Three Transportation: RCT RCT Transportation: Wheel chair van Plan: Anticipate, Ed will be discharged home with a resumption of [facility] RN, PT, OT, AUTOMOTIVE HARDWARE ENGINEER when medically ready for discharge. He will follow up with his community providers and plan of care and transport via RCT w/c van. Currently has home O2 through [facility], ordered by his PCP after his last discharge. CM will follow and continue to support discharge planning efforts. Social Determinants of Health Screening Social Determinants of health last assessed in clinic: 11/12/24 Will the Patient Participate in the Screening?: Yes Do you worry about having a steady place to live?: no Problems where you live: no known problems In the past 12 months, have you had to go without electric, gas, oil or water in your home?: no 1. Within the past 12 months, we worried whether our food would run out before we got money to buy more.: Never true 2. Within the past 12 months, the food we bought just didn't last and we didn't have money to get more.: Never true Has lack of transportation kept you from medical appointments or from doing things needed for daily living?: yes Has anyone in your life made you feel unsafe or unsupported?: no How hard is it for you to pay for the very basics like food, housing, medical care, and heating? Would you say it is:: Somewhat hard Do you want help finding or keeping work or a job?: I do not need or want help If for any reason you need help with day-to-day activities such as bathing, preparing meals, shopping, managing finances, etc., do you get the help you need?: I don?t need any help How often do you feel lonely or isolated from those around you?: Never Do you speak a language other than Ukrainian at home?: Yes Does the patient want assistance with any of the above?: No Health Related Social Needs Health related social needs: transportation insecurity (Z59.82), problems related to housing/economic circumstances (Z59.89) and education (Z55.6) Health related social needs details: needs a wheelchair van, wheelchair bound 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 (Acute) COPD (chronic obstructive pulmonary disease) (Chronic) Pneumonia (Acute) Hypotension due to hypovolemia (Acute) BRAYAN (acute kidney injury) (Acute) Anemia (Chronic) Hyperthyroidism (Chronic) Elevated liver enzymes (Acute) Hx of left BKA (Acute) Hyperlipidemia (Chronic) Hyperkalemia (Acute) Surgical wound infection (Acute) CHF (congestive heart failure) (Chronic) Severe sepsis (Acute) PVD (peripheral vascular disease) (Chronic) Diabetes (Chronic) Diabetic foot ulcer (Chronic) Cellulitis of right ankle (Acute) No-show for appointment (Acute) Medical History Retinal disease, left Uses continuous positive airway pressure (CPAP) ventilation at home Hypotension Dehydration Below-knee amputation of left lower extremity Peripheral neuropathy Cervicalgia Headache, post-traumatic COVID-19 Phantom limb pain Tobacco use Chronic kidney disease, stage III (moderate) Inferior [place] 2006 Hx of pancreatitis Exposure to COVID-19 virus 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 CAD (coronary artery disease) multiple stents 2006 Diabetes mellitus GERD (gastroesophageal reflux disease) HTN (hypertension) Hypercholesterolemia DARIO (obstructive sleep apnea) Obesities, morbid Migraine Neuropathy Diabetic foot ulcer Poorly controlled diabetes mellitus Chest pain Surgical History Hx of cardiac catheterization Status post below knee amputation of left lower extremity History of lung biopsy History of heart artery stent S/P foot surgery Social History Smoking/Tobacco Use Status: Former Tobacco Use Quit Date: 05/30/24 Smoking risk assessment performed?: Yes Alcohol Intake: never Drug use: Never Substance use type: does not use Housing: house Do you feel safe at home: Yes Do you feel safe in your relationship?: Yes Readmission Within the Past 30 Days Yes or No: Yes Date of First Admission Date of 1st Admission: 10/26/24 Date of this Admission Date of Admission: 11/11/24 This admission was: Through ED Office Visit Since 1st Admission Have you seen your PCP in the office since discharge?: Yes Date of PCP Appointment: 11/04/24 Had an appointment Been Scheduled?: Yes Date of Scheduled Appointment: 11/04/24 Speicalist Appointments Have you seen any other specialist since your 1st Admission?: No If the patient had a VNA ordered Did the patient have a VNA order?: Yes Did you call the VNA before you came?: Yes ED visits How many ED visits in the past 12 months: 3 Assessment for Readmission Summary of readmission circumstances, based upon interviews: Per H&P written on 11/11/24. This is a 64-year-old male patient has had multiple hospitalizations since May when he had a fractured right ankle which was repaired with ORIF but he is not weightbearing. He has been losing weight with a history of diabetes poorly controlled status post left BKA with phantom pain on chronic narcotics without misuse and now chronic right ankle pain with his neuropathy and fractured ankle which is nonweightbearing. He was recent hospitalized with exacerbation of CHF and had his diuretics increased and now presents with acute kidney injury and hypotension with episodes of lightheadedness. He has had no falls. He is chronically on oxygen at 2 L/min per nasal cannula and with COPD. Imaging in the ED did reveal right middle lobe pneumonia and pulmonary vascular congestion with a history of CHF. He was not hypoxic beyond his baseline. He was initiated on IV antibiotic therapy for community-acquired pneumonia with patient's frequent hospitalizations and for gentle IV hydration with the patient having a 250 cc bolus of normal saline and to continue on a low rate of normal saline overnight. His usual antihypertensives and diuretic will be held for now except for metoprolol which would be given at split dosing. His usual inhalers will be continued but he will not be continued on prednisone and finish a course. He is asking for increase oxycodone use because of pain in his ankle and his usual phantom pain. This will be done in the hospital but he will not be discharged on increased narcotic therapy. He can speak to his PCP about this treatment plan. His VPMS was reviewed and was appropriate with a history of twice a day dosing of oxycodone.
--- NOTE | 2024-11-12 12:45 | W.PM.PROGNOT ---
Date of Service Date of service: 11/12/24 Time of Service: 12:45 Assessment and Plan Assessment and plan (1) Hypotension due to hypovolemia: Start date: 11/11/24 Status: Acute Assessment and plan: This is a 64-year-old gentleman with recurrent hospitalizations since May 2024 when he had a fractured right ankle being status post BKA on the left. He recently was hospitalized for CHF and COPD exacerbation and his echocardiogram did show progression of his reduced left ventricular ejection fraction. He was on increased diuretics at home and did become dry and now is hypovolemic with hypotension. He was IV hydrated with 250 cc normal saline and will be on a 80 cc/h normal saline infusion overnight. If he stabilizes he will restart his diuretic maybe at a lower dose and resume his antihypertensives as before. For now he is on a split dose of metoprolol. He is expected to be discharged home. He is a full code. 11/12/24 BP is currently (120/72). Pt is on his metoprolol and imdur. Pt is not on his amlodipine though. Can restart as an outpatient (2) BRAYAN (acute kidney injury): Start date: 11/11/24 Status: Acute Assessment and plan: Gentle IV hydration with patient having chronic CKD with his diabetes. Trend labs. 11/12/24 Difficult to tell how much of this is true BRAYAN and how much of this is pre-renal considering his recent echo showing EF~25% Will continue with gentle rehydration (3) Pneumonia: Start date: 11/11/24 Status: Acute Assessment and plan: IV cefepime, doxycycline and vancomycin for hospital-acquired right lower lobe pneumonia with multiple hospitalizations recently. He is afebrile he does have a mild elevation of his WBC. He does have some mild respiratory symptoms but does have a history of COPD. His inhaler therapy will be continued. 11/12/24 Pt is currently on vancomycin/cefepime/doxycycline. WBC is ~13k and similar to what it was yesterday Hopefully can downgrade tomorrow (4) CHF (congestive heart failure): Status: Chronic Assessment and plan: Echocardiogram does reveal increasing LVEF. Hold diuretic until blood pressure stabilizes then lower dose of torsemide she could be reinitiated. Trend labs. 11/12/24 Somewhat difficult to manage in light of current renal fx and worsening EF. Pt would benefit from cards evaluation for possible METAL DRILL OPERATOR/ICD/biventricular PM/CCM. Reviewed the latest Cards note available to us 01/14/24 (claudia) with no mention of mechanical intervention. Would definitely pursue as an outpatient. (5) Diabetes mellitus: Assessment and plan: Hold outpatient medical therapy with glucometer measurements before meals and at bedtime with moderate sliding scale short acting insulin coverage while hospitalized. 11.12.24 Latest a1c on 08/31/24 showed a value of 7.5. PT will need optimization in the outpatient setting (6) HTN (hypertension): Assessment and plan: Hold outpatient medical therapy until blood pressure stabilizes with IV hydration. Low-dose metoprolol every 6 hours as tolerated. 11/12/14 Pt's BP is currently 132/76. CW medical therapy and add back CCB in am (7) CAD (coronary artery disease): Assessment and plan: Continue outpatient medical therapy including isosorbide. (8) DARIO (obstructive sleep apnea): Assessment and plan: Home CPAP if this is being administered at home. (9) Tobacco use: Assessment and plan: Recently quit 05/2024. (10) COPD (chronic obstructive pulmonary disease): Status: Chronic Assessment and plan: On chronic controller and rescue inhalers with chronic hypoxemia on 2L/min NC at home. Continued oxygen supplementation and inhaler therapy in the hospital. Do not reinitiate prednisone pulse therapy unless he has increasing wheezing and respiratory symptoms with his pneumonia. 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 He does have increased pain in his right ankle recently. He is usually on twice a day dosing of oxycodone for phantom pain. Continue to monitor for safety as outpatient with his PCP. As stated, VPMS is appropriate for his history and dosing. Subjective Subjective Interval history since last seen: Pt states that SOB has improved somewhat. Exam Narrative Exam Narrative: General: Patient appears older than stated age, moderately obese, alert and oriented x 3 and in no acute distress. HEENT: Normocephalic, eyes with pupils equal and react to light symmetrically, extraocular movement intact and sclera anicteric. Oropharynx with dry mucosa and fair dentition. Neck: Supple without JVD. Back: Stooped posture without CVA tenderness. Lungs: Coarse rhonchi clearing with cough, no focalizing rales or rhonchi, fair aeration. Bronchovesicular breath sounds diffusely. No expiratory wheeze. Heart: Regular rate and rhythm with no murmurs or gallops appreciated. Abdomen: Obese contour, soft and nontender to palpation with no palpable hepatosplenomegaly. Bowel sounds positive in all quadrants. Skin: Normal color, moist and warm to touch. Actinic changes over sun exposed areas. Hyperpigmentation and shiny atrophic skin over right leg and ankle. Dry bandage/sock over anterior ulcer of right ankle. Extremities: Without clubbing, cyanosis or pitting edema with gross hard edema right lower extremity below knee. Left BKA stump is clean and wrapped in Delfin. No other joint abnormalities. Fair cap refill. Neuro: Cranial nerves II through XII gross intact, no focalizing motor deficit. No tremor. Psych: Normal affect and mood. Patient does have slightly pressured speech. No abnormal thought processes. Remote and recent memory intact. Objective Last Vital Signs Temp 36.6 C 11/12/24 11:17 Pulse 64 11/12/24 11:55 Resp 14 11/12/24 11:17 BP 132/76 11/12/24 11:17 Pulse Ox 97 11/12/24 11:17 Laboratory Results - last 24 hr 11/11/24 11/11/24 11/11/24 18:00 19:18 20:57 WBC 12.91 H RBC 4.17 L Hgb 11.0 L Hct 35.9 L MCV 86 MCH 26.4 L MCHC 30.6 L RDW 16.8 H Plt Count 250 MPV 10.9 Immature Gran % 0.6 Neutrophils % 74.7 Lymphocytes % 13.3 Monocytes % 7.2 Eosinophils % 3.6 Basophils % 0.6 Nucleated RBC % 0.0 Absolute Neutrophils 9.64 H Absolute Lymphocytes 1.72 Absolute Monocytes 0.93 H Absolute Eosinophils 0.46 Absolute Basophils 0.08 VBG pH 7.40 VBG pCO2 46 VBG pO2 44 VBG HCO3 29 H VBG Total CO2 27 VBG O2 Saturation 78 VBG Base Excess 4 H VBG Lactate 1.3 Sodium 137 Potassium 3.4 L Chloride 100 Carbon Dioxide 28.9 Anion Gap 8.1 BUN 57 H Creatinine 3.0 H Est GFR (CKD-EPI 2020) 22.77 Glucose 276 H Calcium 9.1 Magnesium 1.7 L Total Bilirubin 0.8 AST 12 L ALT 12 L Alkaline Phosphatase 222 H Troponin I 21 20 NT-Pro-B Natriuret Pep 7340 H Total Protein 7.0 Albumin 2.5 L TSH 0.13 L Free T4 1.41 Urine Color Urine Clarity Urine pH Ur Specific [place] Urine Protein Urine Ketones Urine Blood Urine Nitrite Urine Bilirubin Urine Urobilinogen Ur Leukocyte Esterase Urine RBC Urine WBC Ur Epithelial Cells Urine Crystals Urine Bacteria Urine Casts Urine Mucus Urine Other Ur Culture Indicated? Urine Glucose COVID-19 Source Nasopharynx SARS-CoV-2 (PCR) Negative Influenza Type A (PCR) Negative Influenza Type B (PCR) Negative RSV (PCR) Negative 11/11/24 11/12/24 23:00 06:18 WBC 12.48 H RBC 3.92 L Hgb 10.1 L Hct 33.6 L MCV 86 MCH 25.8 L MCHC 30.1 L RDW 16.8 H Plt Count 223 MPV 11.3 H Immature Gran % Neutrophils % Lymphocytes % Monocytes % Eosinophils % Basophils % Nucleated RBC % Absolute Neutrophils Absolute Lymphocytes Absolute Monocytes Absolute Eosinophils Absolute Basophils VBG pH VBG pCO2 VBG pO2 VBG HCO3 VBG Total CO2 VBG O2 Saturation VBG Base Excess VBG Lactate Sodium 141 Potassium 3.6 Chloride 103 Carbon Dioxide 29.1 Anion Gap 8.9 BUN 56 H Creatinine 2.9 H Est GFR (CKD-EPI 2020) 23.72 Glucose 157 H Calcium 8.4 L Magnesium 1.6 L Total Bilirubin 0.5 AST 14 L ALT 12 L Alkaline Phosphatase 193 H Troponin I NT-Pro-B Natriuret Pep Total Protein 6.3 L Albumin 2.2 L TSH Free T4 Urine Color Dark Yellow Urine Clarity Clear Urine pH 5.5 Ur Specific [place] 1.025 Urine Protein >=300 H Urine Ketones Negative Urine Blood Negative Urine Nitrite Negative Urine Bilirubin Negative Urine Urobilinogen 0.2 Ur Leukocyte Esterase Small H Urine RBC Negative Urine WBC 20-50 H Ur Epithelial Cells Moderate Urine Crystals Negative Urine Bacteria Rare Urine Casts 3-5 Hyaline Urine Mucus Trace Urine Other Rare Yeast Ur Culture Indicated? No/Sq. Contamination Urine Glucose Negative COVID-19 Source SARS-CoV-2 (PCR) Influenza Type A (PCR) Influenza Type B (PCR) RSV (PCR) Time Spent with Patient Time Spent with Patient: 25-34 minutes Time was spent: preparing to see the patient(eg.review tests), obtaining and/or reviewing separately otained hiistory, ordering medications,tests, procedures, referring, communicating with other health daycare manager, indepentently interpreting results, counseling the patient and care coordination
[2024-11-12] MEDS: oxyCODONE 10 MG TAB PO (15:05)
--- NOTE | 2024-11-12 16:20 | RESPIRATORY ---
Spoke with patient about DARIO diagnosis and pt advised he had a sleep study and was given a CPAP machine but the DME took it back due to non-compliance about a year ago. Pt currently wears 2L O2 17/02, DME: Low
[2024-11-12] MEDS: Magnesium Oxide 400 MG TAB PO (19:38)
[2024-11-13] VITALS (12 sets, daily range): BP systolic 101–146; BP diastolic 70–82; PULSE 66–78; RESP 14–18; TEMP 36.4–36.7; O2SAT 91–96
[2024-11-13] MEDS: Metoprolol 25 MG TAB PO ×5 (00:01→23:45)
[2024-11-13] MEDS: oxyCODONE 10 MG TAB PO ×2 (00:01→10:45)
--- NOTE | 2024-11-13 00:15 | RT.EKG_ITS ---
APPROVED REPORT Exam: Resting ECG Reason for Exam: chest pressure Patient Location: I HR:74 bpm ECG Measurements Heart Rate 74 AXIS ID 207 P 62 QRSd 125 QRS -18 QT 425 T 89 QTc 472 Conclusion Sinus rhythm...normal P axis, V-rate 50- 99 Ventricular premature complex...V complex w/ short R-R interval
[2024-11-13 01:11] LABS: Vancomycin, Trough 16.8 ug/mL (10.0-20.0)
[2024-11-13 01:14] LABS: Troponin I 19 ng/L (<or=76)
[2024-11-13] MEDS: CEFEPIME 1 GM in Normal Saline 50 ML IVPB ×2 (02:06→10:15)
[2024-11-13] MEDS: Acetaminophen 325 MG TAB PO ×3 (02:07→19:29)
[2024-11-13] MEDS: VANCOMYCIN/WATER (PEG) 1 GM/200 ML BAG IVPB (04:32)
[2024-11-13] MEDS: Normal Saline Flush 10 ML SYR IVP ×4 (04:33→19:30)
[2024-11-13 06:46] LABS: Abs Immature Grans 0.09 10^3/uL (0.0-0.06); Absolute Basophil Count 0.08 10^3/uL (0.0-0.2); Absolute Eosinophil Count 0.55 10^3/uL (0.0-0.7); Absolute Lymphocyte Count 1.42 10^3/uL (1.2-3.4); Absolute Monocyte Count 0.77 10^3/uL (0.1-0.8); Basophils % 0.7 %; Eosinophils % 4.9 %; HCT 32.1 % (40.0-50.0); Immature Grans % 0.8 %; Lymphocytes % 12.7 %; MCH 26.5 pg (27.0-33.0); MCHC 31.2 % (32.0-36.0); MCV 85 fL (80-95); MPV 11.7 fL (8.0-11.0); Monocytes % 6.9 %; Platelet Count 211 10^3/uL (130-400); RBC 3.78 10^6/uL (4.36-5.78); RDW 16.7 % (11.8-14.1); RDW-SD 52.1 fL; WBC 11.21 10^3/uL (4.4-10.8)
[2024-11-13 07:12] LABS: ALT 13 U/L (16-63); AST 15 U/L (15-37); Albumin 2.2 g/dL (3.4-5.0); Alkaline Phosphatase 216 U/L (46-116); Anion Gap 8.3 mmol/L (3-11); BUN 58 mg/dL (7-18); Bilirubin, Total 0.6 mg/dL (0.2-1.0); CO2 27.7 mmol/L (21.0-32.0); CREATININE 2.6 mg/dL (0.70-1.30); Calcium 8.5 mg/dL (8.5-10.1); Chloride 101 mmol/L (98-107); Estimated GFR 27.04 (mL/min/1.73m2); Glucose 237 mg/dL (74-106); Magnesium 1.5 mg/dL (1.8-2.4); Potassium 3.8 mmol/L (3.5-5.1); Sodium 137 mmol/L (136-145); Total Protein 6.4 g/dL (6.4-8.2)
[2024-11-13 07:40] LABS: NT-proBNP 4031 pg/mL (<300)
[2024-11-13] MEDS: Insulin Aspart 300 UNITS/3 ML PEN SC ×4 (08:07→21:44)
[2024-11-13] MEDS: DULoxetine 30 MG CAP 60 MG PO ×2 (08:09→19:29)
[2024-11-13] MEDS: Atorvastatin 40 MG TAB PO (08:09)
[2024-11-13] MEDS: Ranolazine 500 MG TABCR PO ×2 (08:09→19:30)
[2024-11-13] MEDS: Lactobacillus Acidophilus CAP 1 CAP PO (08:09)
[2024-11-13] MEDS: Cholecalciferol (Vitamin D3) 1,000 UNIT TAB 5000 UNITS PO (08:09)
[2024-11-13] MEDS: Docusate Sodium 100 MG CAP PO (08:09)
[2024-11-13] MEDS: Tamsulosin 0.4 MG CAPCR PO (08:09)
[2024-11-13] MEDS: Isosorbide Mononitrate 60 MG TABCR PO (08:09)
[2024-11-13] MEDS: Clopidogrel 75 MG TAB PO (08:10)
[2024-11-13] MEDS: Aspirin E.C. 81 MG TABEC PO (08:10)
[2024-11-13] MEDS: Magnesium Oxide 400 MG TAB PO ×2 (08:10→19:29)
[2024-11-13] MEDS: Pantoprazole 40 MG TABCR PO (08:10)
[2024-11-13] MEDS: Tiotropium Bromide-Respimat 10 PUFF INH 2 PUFF IH (08:23)
[2024-11-13] MEDS: Budesonide/Formoterol 160/4.5 6 GM 60 PUFF INH IH ×2 (08:24→20:12)
[2024-11-13] MEDS: DOXYCYCLINE 100 MG in Normal Saline 100 ML IVPB ×2 (11:07→21:44)
[2024-11-13] MEDS: Ondansetron 4 MG/2 ML VIAL IVP (13:28)
--- NOTE | 2024-11-13 13:28 | W.PM.PROGNOT ---
Date of Service Date of service: 11/13/24 Time of Service: 13:28 Assessment and Plan Assessment and plan (1) Hypotension due to hypovolemia: Start date: 11/11/24 Status: Acute Assessment and plan: This is a 64-year-old gentleman with recurrent hospitalizations since May 2024 when he had a fractured right ankle being status post BKA on the left. He recently was hospitalized for CHF and COPD exacerbation and his echocardiogram did show progression of his reduced left ventricular ejection fraction. He was on increased diuretics at home and did become dry and now is hypovolemic with hypotension. He was IV hydrated with 250 cc normal saline and will be on a 80 cc/h normal saline infusion overnight. If he stabilizes he will restart his diuretic maybe at a lower dose and resume his antihypertensives as before. For now he is on a split dose of metoprolol. He is expected to be discharged home. He is a full code. 11/12/24 BP is currently (120/72). Pt is on his metoprolol and imdur. Pt is not on his amlodipine though. Can restart as an outpatient (2) BRAYAN (acute kidney injury): Start date: 11/11/24 Status: Acute Assessment and plan: Gentle IV hydration with patient having chronic CKD with his diabetes. Trend labs. 11/12/24 Difficult to tell how much of this is true BRAYAN and how much of this is pre-renal considering his recent echo showing EF~25% Will continue with gentle rehydration 11/13/24 Pt's renal indices show mild improvement. Bun/Cr at 58/2.6 respectively. GFR up to 27.04 (22.77 on admission 11/11/24) (3) Pneumonia: Start date: 11/11/24 Status: Acute Assessment and plan: IV cefepime, doxycycline and vancomycin for hospital-acquired right lower lobe pneumonia with multiple hospitalizations recently. He is afebrile he does have a mild elevation of his WBC. He does have some mild respiratory symptoms but does have a history of COPD. His inhaler therapy will be continued. 11/12/24 Pt is currently on vancomycin/cefepime/doxycycline. WBC is ~13k and similar to what it was yesterday Hopefully can downgrade tomorrow 11/13/24 Will stop vancomycin and cefepime and continue with doxycycline (4) CHF (congestive heart failure): Status: Chronic Assessment and plan: Echocardiogram does reveal increasing LVEF. Hold diuretic until blood pressure stabilizes then lower dose of torsemide she could be reinitiated. Trend labs. 11/12/24 Somewhat difficult to manage in light of current renal fx and worsening EF. Pt would benefit from cards evaluation for possible USED EQUIPMENT SALES REPRESENTATIVE/ICD/biventricular PM/CCM. Reviewed the latest Cards note available to us 01/14/24 (claudia) with no mention of mechanical intervention. Would definitely pursue as an outpatient. (5) Diabetes mellitus: Assessment and plan: Hold outpatient medical therapy with glucometer measurements before meals and at bedtime with moderate sliding scale short acting insulin coverage while hospitalized. 11.12.24 Latest a1c on 08/31/24 showed a value of 7.5. PT will need optimization in the outpatient setting (6) HTN (hypertension): Assessment and plan: Hold outpatient medical therapy until blood pressure stabilizes with IV hydration. Low-dose metoprolol every 6 hours as tolerated. 11/12/14 Pt's BP is currently 132/76. CW medical therapy and add back CCB in am (7) CAD (coronary artery disease): Assessment and plan: Continue outpatient medical therapy including isosorbide. (8) DARIO (obstructive sleep apnea): Assessment and plan: Home CPAP if this is being administered at home. (9) Tobacco use: Assessment and plan: Recently quit 05/2024. (10) COPD (chronic obstructive pulmonary disease): Status: Chronic Assessment and plan: On chronic controller and rescue inhalers with chronic hypoxemia on 2L/min NC at home. Continued oxygen supplementation and inhaler therapy in the hospital. Do not reinitiate prednisone pulse therapy unless he has increasing wheezing and respiratory symptoms with his pneumonia. 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 He does have increased pain in his right ankle recently. He is usually on twice a day dosing of oxycodone for phantom pain. Continue to monitor for safety as outpatient with his PCP. As stated, VPMS is appropriate for his history and dosing. Subjective Subjective Interval history since last seen: Pt seen and examined in his room this am. NS report pt with nausea this afternoon. Exam Narrative Exam Narrative: General: Patient appears older than stated age, moderately obese, alert and oriented x 3 and in no acute distress. HEENT: Normocephalic, eyes with pupils equal and react to light symmetrically, extraocular movement intact and sclera anicteric. Oropharynx with dry mucosa and fair dentition. Neck: Supple without JVD. Back: Stooped posture without CVA tenderness. Lungs: Coarse rhonchi clearing with cough, no focalizing rales or rhonchi, fair aeration. Bronchovesicular breath sounds diffusely. No expiratory wheeze. Heart: Regular rate and rhythm with no murmurs or gallops appreciated. Abdomen: Obese contour, soft and nontender to palpation with no palpable hepatosplenomegaly. Bowel sounds positive in all quadrants. Skin: Normal color, moist and warm to touch. Actinic changes over sun exposed areas. Hyperpigmentation and shiny atrophic skin over right leg and ankle. Dry bandage/sock over anterior ulcer of right ankle. Extremities: Without clubbing, cyanosis or pitting edema with gross hard edema right lower extremity below knee. Left BKA stump is clean and wrapped in Delfin. No other joint abnormalities. Fair cap refill. Neuro: Cranial nerves II through XII gross intact, no focalizing motor deficit. No tremor. Psych: Normal affect and mood. Objective Last Vital Signs Temp 36.7 C 11/13/24 11:33 Pulse 66 11/13/24 11:33 Resp 15 11/13/24 11:33 BP 142/81 H 11/13/24 11:33 Pulse Ox 95 11/13/24 11:33 Laboratory Results - last 24 hr 11/13/24 11/13/24 00:41 06:08 WBC 11.21 H RBC 3.78 L Hgb 10.0 L Hct 32.1 L MCV 85 MCH 26.5 L MCHC 31.2 L RDW 16.7 H Plt Count 211 MPV 11.7 H Immature Gran % 0.8 Neutrophils % 74.0 Lymphocytes % 12.7 Monocytes % 6.9 Eosinophils % 4.9 Basophils % 0.7 Nucleated RBC % 0.0 Absolute Neutrophils 8.30 H Absolute Lymphocytes 1.42 Absolute Monocytes 0.77 Absolute Eosinophils 0.55 Absolute Basophils 0.08 Sodium 137 Potassium 3.8 Chloride 101 Carbon Dioxide 27.7 Anion Gap 8.3 BUN 58 H Creatinine 2.6 H Est GFR (CKD-EPI 2020) 27.04 Glucose 237 H Calcium 8.5 Magnesium 1.5 L Total Bilirubin 0.6 AST 15 ALT 13 L Alkaline Phosphatase 216 H Troponin I 19 NT-Pro-B Natriuret Pep 4031 H Total Protein 6.4 Albumin 2.2 L Vancomycin Trough 16.8 Time Spent with Patient Time Spent with Patient: 25-34 minutes Time was spent: preparing to see the patient(eg.review tests), obtaining and/or reviewing separately otained hiistory, ordering medications,tests, procedures, referring, communicating with other health acute care surgeon, indepentently interpreting results, counseling the patient and care coordination
[2024-11-13] MEDS: Normal Saline 1,000 ML 80 ML IV (17:08)
[2024-11-14] VITALS (10 sets, daily range): BP systolic 121–142; BP diastolic 55–85; PULSE 73–80; RESP 14–18; TEMP 36–36.6; O2SAT 85–95
[2024-11-14] MEDS: MAGNESIUM SULFATE 2 GM/50 ML BAG IV_INF (01:42)
[2024-11-14] MEDS: Metoprolol 25 MG TAB PO ×3 (05:40→17:58)
[2024-11-14 06:33] LABS: Abs Immature Grans 0.07 10^3/uL (0.0-0.06); Absolute Basophil Count 0.08 10^3/uL (0.0-0.2); Absolute Eosinophil Count 0.58 10^3/uL (0.0-0.7); Absolute Lymphocyte Count 1.12 10^3/uL (1.2-3.4); Absolute Monocyte Count 0.66 10^3/uL (0.1-0.8); Absolute Neutrophil Count 8.68 10^3/uL (1.2-6.7); Basophils % 0.7 %; Eosinophils % 5.2 %; HCT 35.2 % (40.0-50.0); HGB 10.8 g/dL (13.5-17.5); Immature Grans % 0.6 %; MCH 26.5 pg (27.0-33.0); MCHC 30.7 % (32.0-36.0); MCV 86 fL (80-95); MPV 11.7 fL (8.0-11.0); Monocytes % 5.9 %; Neutrophils % 77.6 %; Platelet Count 237 10^3/uL (130-400); RBC 4.08 10^6/uL (4.36-5.78); RDW 16.5 % (11.8-14.1); RDW-SD 52.7 fL; WBC 11.19 10^3/uL (4.4-10.8)
[2024-11-14 07:00] LABS: ALT 11 U/L (16-63); AST 12 U/L (15-37); Albumin 2.3 g/dL (3.4-5.0); Alkaline Phosphatase 210 U/L (46-116); Anion Gap 8.4 mmol/L (3-11); BUN 50 mg/dL (7-18); Bilirubin, Total 0.7 mg/dL (0.2-1.0); CO2 25.6 mmol/L (21.0-32.0); CREATININE 2.3 mg/dL (0.70-1.30); Calcium 8.8 mg/dL (8.5-10.1); Chloride 103 mmol/L (98-107); Estimated GFR 31.32 (mL/min/1.73m2); Glucose 149 mg/dL (74-106); Potassium 3.9 mmol/L (3.5-5.1); Sodium 137 mmol/L (136-145); Total Protein 6.8 g/dL (6.4-8.2)
[2024-11-14] MEDS: Aspirin E.C. 81 MG TABEC PO (07:45)
[2024-11-14] MEDS: Ranolazine 500 MG TABCR PO ×2 (07:45→19:46)
[2024-11-14] MEDS: Lactobacillus Acidophilus CAP 1 CAP PO (07:45)
[2024-11-14] MEDS: Atorvastatin 40 MG TAB PO (07:46)
[2024-11-14] MEDS: Magnesium Oxide 400 MG TAB PO ×2 (07:46→19:46)
[2024-11-14] MEDS: Isosorbide Mononitrate 60 MG TABCR PO (07:46)
[2024-11-14] MEDS: Cholecalciferol (Vitamin D3) 1,000 UNIT TAB 5000 UNITS PO (07:46)
[2024-11-14] MEDS: Clopidogrel 75 MG TAB PO (07:46)
[2024-11-14] MEDS: Docusate Sodium 100 MG CAP PO (07:47)
[2024-11-14] MEDS: Acetaminophen 325 MG TAB PO ×2 (07:47→19:46)
[2024-11-14] MEDS: Tamsulosin 0.4 MG CAPCR PO (07:47)
[2024-11-14] MEDS: Pantoprazole 40 MG TABCR PO (07:47)
[2024-11-14] MEDS: DULoxetine 30 MG CAP 60 MG PO ×2 (07:47→19:46)
[2024-11-14] MEDS: Normal Saline Flush 10 ML SYR IVP ×5 (07:48→19:47)
[2024-11-14] MEDS: Enoxaparin 40 MG/0.4 ML SYR SC (07:48)
[2024-11-14] MEDS: Insulin Aspart 300 UNITS/3 ML PEN SC ×4 (07:54→21:18)
[2024-11-14] MEDS: Tiotropium Bromide-Respimat 10 PUFF INH 2 PUFF IH (08:53)
[2024-11-14] MEDS: Budesonide/Formoterol 160/4.5 6 GM 60 PUFF INH IH ×2 (08:53→20:19)
[2024-11-14] MEDS: DOXYCYCLINE 100 MG in Normal Saline 100 ML IVPB ×2 (10:38→21:26)
--- NOTE | 2024-11-14 10:39 | PGE_ITS ---
Date of Service Date of service: 11/14/24 Time of Service: 10:39 Assessment and Plan Assessment and plan (1) Hypotension due to hypovolemia: Start date: 11/11/24 Status: Acute Assessment and plan: This is a 64-year-old gentleman with recurrent hospitalizations since May 2024 when he had a fractured right ankle being status post BKA on the left. He recently was hospitalized for CHF and COPD exacerbation and his echocardiogram did show progression of his reduced left ventricular ejection fraction. He was on increased diuretics at home and did become dry and now is hypovolemic with hypotension. He was IV hydrated with 250 cc normal saline and will be on a 80 cc/h normal saline infusion overnight. If he stabilizes he will restart his diuretic maybe at a lower dose and resume his antihypertensives as before. For now he is on a split dose of metoprolol. He is expected to be discharged home. He is a full code. 11/12/24 BP is currently (120/72). Pt is on his metoprolol and imdur. Pt is not on his amlodipine though. Can restart as an outpatient (2) BRAYAN (acute kidney injury): Start date: 11/11/24 Status: Acute Assessment and plan: Gentle IV hydration with patient having chronic CKD with his diabetes. Trend labs. 11/12/24 Difficult to tell how much of this is true BRAYAN and how much of this is pre-renal considering his recent echo showing EF~25% Will continue with gentle rehydration 11/13/24 Pt's renal indices show mild improvement. Bun/Cr at 58/2.6 respectively. GFR up to 27.04 (22.77 on admission 11/11/24) 11/14/24 Renal fx continues to improve. Consider renal usn if renal fx worsens. (3) Pneumonia: Start date: 11/11/24 Status: Acute Assessment and plan: IV cefepime, doxycycline and vancomycin for hospital-acquired right lower lobe pneumonia with multiple hospitalizations recently. He is afebrile he does have a mild elevation of his WBC. He does have some mild respiratory symptoms but does have a history of COPD. His inhaler therapy will be continued. 11/12/24 Pt is currently on vancomycin/cefepime/doxycycline. WBC is ~13k and similar to what it was yesterday Hopefully can downgrade tomorrow 11/13/24 Will stop vancomycin and cefepime and continue with doxycycline 11/14/24 Fever curve and wbc reassuring. CW abx and recheck labs in am (4) CHF (congestive heart failure): Status: Chronic Assessment and plan: Echocardiogram does reveal increasing LVEF. Hold diuretic until blood pressure stabilizes then lower dose of torsemide she could be reinitiated. Trend labs. 11/12/24 Somewhat difficult to manage in light of current renal fx and worsening EF. Pt would benefit from cards evaluation for possible WORKERS' COMPENSATION HEARINGS OFFICER/ICD/biventricular PM/CCM. Reviewed the latest Cards note available to us 01/14/24 (claudia) with no mention of mechanical intervention. Would definitely pursue as an outpatient. (5) Diabetes mellitus: Assessment and plan: Hold outpatient medical therapy with glucometer measurements before meals and at bedtime with moderate sliding scale short acting insulin coverage while hospitalized. 11.12.24 Latest a1c on 08/31/24 showed a value of 7.5. PT will need optimization in the outpatient setting (6) HTN (hypertension): Assessment and plan: Hold outpatient medical therapy until blood pressure stabilizes with IV hydration. Low-dose metoprolol every 6 hours as tolerated. 11/12/14 Pt's BP is currently 132/76. CW medical therapy and add back CCB in am 11/14/24 BP currently 136/80, will need optimization in the outpatient setting (7) CAD (coronary artery disease): Assessment and plan: Continue outpatient medical therapy including isosorbide. (8) DARIO (obstructive sleep apnea): Assessment and plan: Home CPAP if this is being administered at home. (9) Tobacco use: Assessment and plan: Recently quit 05/2024. (10) COPD (chronic obstructive pulmonary disease): Status: Chronic Assessment and plan: On chronic controller and rescue inhalers with chronic hypoxemia on 2L/min NC at home. Continued oxygen supplementation and inhaler therapy in the hospital. Do not reinitiate prednisone pulse therapy unless he has increasing wheezing and respiratory symptoms with his pneumonia. 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 He does have increased pain in his right ankle recently. He is usually on twice a day dosing of oxycodone for phantom pain. Continue to monitor for safety as outpatient with his PCP. As stated, VPMS is appropriate for his history and dosing. Subjective Subjective Interval history since last seen: Pt seen and examined in his room this am. No new complaints. POC d/w pt as well as with bedside nurse during MDR Exam Narrative Exam Narrative: HEENT: NCAT MMM EOMI NECK: NO LAD NO JVD CV: RRR NO MRG LUNGS: CTAB NO AMU SPEAKING IN COMPLETE SENTENCES EXT: NO CCE BILAT PSYCH: AAOX3 NAD CAN GIVE LINEAR HISTORY Objective Last Vital Signs Temp 36.5 C 11/14/24 07:14 Pulse 74 11/14/24 07:14 Resp 14 11/14/24 07:14 BP 136/80 11/14/24 07:14 Pulse Ox 91 L 11/14/24 08:53 Laboratory Results - last 24 hr 11/14/24 06:00 WBC 11.19 H RBC 4.08 L Hgb 10.8 L Hct 35.2 L MCV 86 MCH 26.5 L MCHC 30.7 L RDW 16.5 H Plt Count 237 MPV 11.7 H Immature Gran % 0.6 Neutrophils % 77.6 Lymphocytes % 10.0 Monocytes % 5.9 Eosinophils % 5.2 Basophils % 0.7 Nucleated RBC % 0.0 Absolute Neutrophils 8.68 H Absolute Lymphocytes 1.12 L Absolute Monocytes 0.66 Absolute Eosinophils 0.58 Absolute Basophils 0.08 Sodium 137 Potassium 3.9 Chloride 103 Carbon Dioxide 25.6 Anion Gap 8.4 BUN 50 H Creatinine 2.3 H Est GFR (CKD-EPI 2020) 31.32 Glucose 149 H Calcium 8.8 Magnesium 2.0 Total Bilirubin 0.7 AST 12 L ALT 11 L Alkaline Phosphatase 210 H Total Protein 6.8 Albumin 2.3 L Time Spent with Patient Time Spent with Patient: <25 minutes Time was spent: preparing to see the patient(eg.review tests), obtaining and/or reviewing separately otained hiistory, ordering medications,tests, procedures, referring, communicating with other health daytime caregiver, indepentently interpreting results, counseling the patient and care coordination
[2024-11-14] MEDS: Nystatin POWDER 60 GM JAR TP ×2 (11:03→20:36)
[2024-11-15] MEDS: Metoprolol 25 MG TAB PO ×3 (00:11→12:02)
[2024-11-15 03:25] VITALS: BP 106/70; PULSE 67; RESP 18; TEMP 36.5; O2SAT 92
[2024-11-15 07:12] VITALS: BP 105/61; PULSE 75; RESP 20; TEMP 36.5; O2SAT 92
[2024-11-15] MEDS: Budesonide/Formoterol 160/4.5 6 GM 60 PUFF INH IH (07:59)
[2024-11-15 08:00] VITALS: O2SAT 93
[2024-11-15] MEDS: Tiotropium Bromide-Respimat 10 PUFF INH 2 PUFF IH (08:00)
[2024-11-15 08:31] VITALS: BP 142/76
[2024-11-15] MEDS: Cholecalciferol (Vitamin D3) 1,000 UNIT TAB 5000 UNITS PO (08:33)
[2024-11-15] MEDS: Magnesium Oxide 400 MG TAB PO (08:33)
[2024-11-15] MEDS: Clopidogrel 75 MG TAB PO (08:33)
[2024-11-15] MEDS: Tamsulosin 0.4 MG CAPCR PO (08:33)
[2024-11-15] MEDS: Lactobacillus Acidophilus CAP 1 CAP PO (08:33)
[2024-11-15] MEDS: DULoxetine 30 MG CAP 60 MG PO (08:33)
[2024-11-15] MEDS: Atorvastatin 40 MG TAB PO (08:34)
[2024-11-15] MEDS: Acetaminophen 325 MG TAB PO (08:34)
[2024-11-15] MEDS: Docusate Sodium 100 MG CAP PO (08:34)
[2024-11-15] MEDS: Aspirin E.C. 81 MG TABEC PO (08:34)
[2024-11-15] MEDS: Pantoprazole 40 MG TABCR PO (08:35)
[2024-11-15] MEDS: Isosorbide Mononitrate 60 MG TABCR PO (08:35)
[2024-11-15] MEDS: Ranolazine 500 MG TABCR PO (08:36)
[2024-11-15] MEDS: Nystatin POWDER 60 GM JAR TP (08:37)
[2024-11-15] MEDS: Normal Saline Flush 10 ML SYR IVP ×2 (08:37→09:51)
[2024-11-15] MEDS: Enoxaparin 40 MG/0.4 ML SYR SC (08:37)
[2024-11-15] MEDS: Insulin Aspart 300 UNITS/3 ML PEN SC ×2 (08:39→12:02)
[2024-11-15 09:20] LABS: Abs Immature Grans 0.09 10^3/uL (0.0-0.06); Absolute Basophil Count 0.07 10^3/uL (0.0-0.2); Absolute Eosinophil Count 0.34 10^3/uL (0.0-0.7); Absolute Lymphocyte Count 1.21 10^3/uL (1.2-3.4); Absolute Monocyte Count 0.62 10^3/uL (0.1-0.8); Absolute Neutrophil Count 9.11 10^3/uL (1.2-6.7); Basophils % 0.6 %; HCT 33.3 % (40.0-50.0); HGB 9.9 g/dL (13.5-17.5); Immature Grans % 0.8 %; Lymphocytes % 10.6 %; MCH 25.9 pg (27.0-33.0); MCHC 29.7 % (32.0-36.0); MCV 87 fL (80-95); MPV 10.6 fL (8.0-11.0); Monocytes % 5.4 %; Neutrophils % 79.6 %; Platelet Count 208 10^3/uL (130-400); RBC 3.82 10^6/uL (4.36-5.78); RDW 16.9 % (11.8-14.1); RDW-SD 53.9 fL; WBC 11.44 10^3/uL (4.4-10.8)
--- NOTE | 2024-11-15 09:26 | CMPROGNOTE_ITS ---
Date of service: 11/15/24 Time of Service: 09:26 Care Management Progress Note Progress Note Text Progress Note Text: Yo was awake and lying in bed when CM met with him. He was admitted to [facility] on 11/11/24 for Hypotension with BRAYAN, CHF, CKD. His renal function will need to improve before he is Medical appropriate for discharge, per provider. PT consult requested, pt is planning to return home when medically ready for discharge. Yo is connected with the [employer] and reported that they are helping him get a ramp for his home and MOW (if he decides he wants them.) CM will follow. Discharge Potential Discharge Needs: PCP F/U Appt Anticipated Barriers to Discharge: None Identified Patient/Family Education Needs: Review discharge instructions, discuss Ask Me Three Transportation: RCT RCT Transportation: Wheel chair van Plan: Awaiting PT recommendations. Anticipate, Ed will be discharged home with a resumption of H RN, PT (add OT, WAGE ADJUSTER) when medically ready for discharge. He will follow up with his community providers and plan of care and transport via RCT w/c van. Currently has home O2 through [facility], ordered by his PCP after his last discharge. CM will follow and continue to support discharge planning efforts. Social Determinants of Health Screening Social Determinants of health last assessed in clinic: 11/15/24 Will the Patient Participate in the Screening?: Yes Do you worry about having a steady place to live?: no Problems where you live: no known problems In the past 12 months, have you had to go without electric, gas, oil or water in your home?: no 1. Within the past 12 months, we worried whether our food would run out before we got money to buy more.: Never true 2. Within the past 12 months, the food we bought just didn't last and we didn't have money to get more.: Never true Has lack of transportation kept you from medical appointments or from doing things needed for daily living?: yes Has anyone in your life made you feel unsafe or unsupported?: no How hard is it for you to pay for the very basics like food, housing, medical care, and heating? Would you say it is:: Somewhat hard Do you want help finding or keeping work or a job?: I do not need or want help If for any reason you need help with day-to-day activities such as bathing, preparing meals, shopping, managing finances, etc., do you get the help you need?: I don?t need any help How often do you feel lonely or isolated from those around you?: Never Do you speak a language other than Sinhala at home?: Yes Does the patient want assistance with any of the above?: No Health Related Social Needs Health related social needs: transportation insecurity (Z59.82), problems related to housing/economic circumstances (Z59.89) and education (Z55.6) Health related social needs details: needs a wheelchair van, wheelchair bound
[2024-11-15 09:35] LABS: ALT 14 U/L (16-63); AST 14 U/L (15-37); Albumin 2.4 g/dL (3.4-5.0); Alkaline Phosphatase 242 U/L (46-116); BUN 51 mg/dL (7-18); Bilirubin, Total 0.6 mg/dL (0.2-1.0); CREATININE 2.4 mg/dL (0.70-1.30); Chloride 104 mmol/L (98-107); Estimated GFR 29.76 (mL/min/1.73m2); Glucose 258 mg/dL (74-106); Potassium 4.8 mmol/L (3.5-5.1); Sodium 136 mmol/L (136-145); Total Protein 6.7 g/dL (6.4-8.2)
[2024-11-15] MEDS: DOXYCYCLINE 100 MG in Normal Saline 100 ML IVPB (09:50)
[2024-11-15 11:08] VITALS: BP 152/78; PULSE 74; RESP 20; TEMP 36.6; O2SAT 93
--- NOTE | 2024-11-15 14:41 | DSE_ITS ---
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 Patient was originally treated with broad-spectrum antibiotics for concern of HCAP. At the time of discharge she been afebrile for over 24 hours and his white count was stable. Patient does have an elevated BUN/creatinine ratio with a GFR at 29. This is very close to his baseline. I will send the patient home on prescriptions for Levaquin. I have instructed the patient and counseled him that there is a chance of Achilles rupture with this medication but advantages include once daily dosing good coverage of pulmonary infections. Patient be discharged in good health. I did hold the patient's losartan and this will be needed to be restarted by the PCP. I do have concerns that this is making his renal function worse. Pt's current CrCl is appx 55. History of Present Illness History of Present Illness Chief Complaint: Low blood pressure with transient lightheadedness. Narrative: This is a 64-year-old male patient has had multiple hospitalizations since May when he had a fractured right ankle which was repaired with ORIF but he is not weightbearing. He has been losing weight with a history of diabetes poorly controlled status post left BKA with phantom pain on chronic narcotics without misuse and now chronic right ankle pain with his neuropathy and fractured ankle which is nonweightbearing. He was recent hospitalized with exacerbation of CHF and had his diuretics increased and now presents with acute kidney injury and hypotension with episodes of lightheadedness. He has had no falls. He is chronically on oxygen at 2 L/min per nasal cannula and with COPD. Imaging in the ED did reveal right middle lobe pneumonia and pulmonary vascular congestion with a history of CHF. He was not hypoxic beyond his baseline. He was initiated on IV antibiotic therapy for community-acquired pneumonia with patient's frequent hospitalizations and for gentle IV hydration with the patient having a 250 cc bolus of normal saline and to continue on a low rate of normal saline overnight. His usual antihypertensives and diuretic will be held for now except for metoprolol which would be given at split dosing. His usual inhalers will be continued but he will not be continued on prednisone and finish a course. He is asking for increase oxycodone use because of pain in his ankle and his usual phantom pain. This will be done in the hospital but he will not be discharged on increased narcotic therapy. He can speak to his PCP about this treatment plan. His VPMS was reviewed and was appropriate with a history of twice a day dosing of oxycodone. The patient does not require urine drug screen at this time. He did have a urine drug screen last hospitalization. He is a full code Assessment and Plan Assessment and plan (1) Hypotension due to hypovolemia: Start date: 11/11/24 Status: Acute Assessment and plan: This is a 64-year-old gentleman with recurrent hospitalizations since May 2024 when he had a fractured right ankle being status post BKA on the left. He recently was hospitalized for CHF and COPD exacerbation and his echocardiogram did show progression of his reduced left ventricular ejection fraction. He was on increased diuretics at home and did become dry and now is hypovolemic with hypotension. He was IV hydrated with 250 cc normal saline and will be on a 80 cc/h normal saline infusion overnight. If he stabilizes he will restart his diuretic maybe at a lower dose and resume his antihypertensives as before. For now he is on a split dose of metoprolol. He is expected to be discharged home. He is a full code. (2) BRAYAN (acute kidney injury): Start date: 11/11/24 Status: Acute Assessment and plan: Gentle IV hydration with patient having chronic CKD with his diabetes. Trend labs. (3) Pneumonia: Start date: 11/11/24 Status: Acute Assessment and plan: IV cefepime, doxycycline and vancomycin for hospital-acquired right lower lobe pneumonia with multiple hospitalizations recently. He is afebrile he does have a mild elevation of his WBC. He does have some mild respiratory symptoms but does have a history of COPD. His inhaler therapy will be continued. (4) CHF (congestive heart failure): Status: Chronic Assessment and plan: Echocardiogram does reveal increasing LVEF. Hold diuretic until blood pressure stabilizes then lower dose of torsemide she could be reinitiated. Trend labs. (5) Diabetes mellitus: Assessment and plan: Hold outpatient medical therapy with glucometer measurements before meals and at bedtime with moderate sliding scale short acting insulin coverage while hospitalized. (6) HTN (hypertension): Assessment and plan: Hold outpatient medical therapy until blood pressure stabilizes with IV hydration. Low-dose metoprolol every 6 hours as tolerated. (7) CAD (coronary artery disease): Assessment and plan: Continue outpatient medical therapy including isosorbide. (8) DARIO (obstructive sleep apnea): Assessment and plan: Home CPAP if this is being administered at home. (9) Tobacco use: Assessment and plan: Recently quit 05/2024. (10) COPD (chronic obstructive pulmonary disease): Status: Chronic Assessment and plan: On chronic controller and rescue inhalers with chronic hypoxemia on 2L/min NC at home. Continued oxygen supplementation and inhaler therapy in the hospital. Do not reinitiate prednisone pulse therapy unless he has increasing wheezing and respiratory symptoms with his pneumonia. 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 He does have increased pain in his right ankle recently. He is usually on twice a day dosing of oxycodone for phantom pain. Continue to monitor for safety as outpatient with his PCP. As stated, VPIN is appropriate for his history and dosing. Home Meds and New Rx's Prescriptions: New levofloxacin 750 mg tablet 750 mg PO DAILY 5 Days Qty: 5 0RF Continued aspirin 81 mg tablet,delayed release (DR/EC) 81 mg PO DAILY clopidogrel 75 mg tablet 75 mg PO DAILY Glucagon Emergency Kit (human) 1 mg recon soln 1 mg subcut Q20M PRN Rx Instructions: until target blood sugar attained albuterol sulfate [Ventolin HFA] 90 mcg/actuation HFA aerosol inhaler 1 puff inhalation Q4H PRN ranolazine 500 mg tablet extended release 12 hr 500 mg PO BID Patient Comments: need to re-order, refill date 11/06 metoprolol succinate 100 mg tablet extended release 24 hr 100 mg PO BID isosorbide mononitrate 60 mg tablet extended release 24 hr 60 mg PO DAILY amlodipine 5 mg tablet 5 mg PO DAILY Patient Comments: TAKE 1 TABLET BY MOUTH DAILY atorvastatin 40 mg tablet 40 mg PO DAILY Patient Comments: TAKE 1 TABLET BY MOUTH DAILY budesonide-formoterol [Symbicort] 160-4.5 mcg/actuation HFA aerosol inhaler 2 puff INHALATION BID Patient Comments: INHALE 2 PUFFS BY MOUTH TWICE DAILY tamsulosin 0.4 mg capsule 0.4 mg PO DAILY Patient Comments: TAKE 1 CAPSULE BY MOUTH DAILY duloxetine [Cymbalta] 30 mg capsule,delayed release(DR/EC) 60 mg PO BID Spiriva Respimat 2.5 mcg/actuation mist 2 inh inhalation DAILY (DME) Omnipod 5 G6-G7 Pods (Gen 5) Cartridge SUBCUT Patient Comments: CHANGE POD EVERY 24 TO 48 HOURS DIRECTED (DME) blood-glucose meter [BackchannelmediaTouch Ultra2 Meter] Kit MISCELLANEOUS glucagon HCl [Glucagon (HCl) Emergency Kit] 1 mg Recon Soln 1 mg IM USEASDIRECTD pantoprazole 40 mg tablet,delayed release (DR/EC) 40 mg PO DAILY Patient Comments: TAKE 1 TABLET BY MOUTH TWICE DAILY insulin aspart U-100 [Novolog U-100 Insulin aspart] 100 unit/mL solution See Rx Instructions continuous subcutaneous infusion .COMPLEX Patient Comments: per pt no insulin since d/c Rx Instructions: medium dose sliding scale as well as meal associated insulin TID (1 unit per 5 grams of carbs) via continuous subcutaneous infusion; medium dose sliding scale as well as meal associated insulin TID (1 unit per 5 grams of carbs) (DME) WorkFlowy G6 Sensor Device MISCELLANEOUS Patient Comments: 1 DEVICE EVERY 10 DAYS insulin glargine-yfgn [Semglee(insulin glarg-yfgn)Pen] 100 unit/mL (3 mL) insulin pen 30 unit subcut QPM nitroglycerin 0.4 mg tablet, sublingual 0.4 mg sublingual Q5M PRN Patient Comments: DISSOLVE ONE TABLET UNDER TONGUE NEEDED FOR CHEST PAIN EVERY 5 MINUTES. NOT TO EXCEED 3 TABLETS IN 24 HOURS docusate sodium [Colace] 100 mg capsule 100 mg PO DAILY cholecalciferol (vitamin D3) [Vitamin D3] 25 mcg (1,000 unit) tablet 5,000 unit PO DAILY Probiotic Acidophilus 250 million cell capsule 1,000 mmu cells PO DAILY oxycodone-acetaminophen 10-325 mg tablet 1 tab PO BID Patient Comments: TAKE 1 TABLET BY MOUTH TWICE DAILY FOR CHRONIC PAIN torsemide 20 mg tablet 20 mg PO BID Patient Comments: TAKE 1 TABLET BY MOUTH TWICE DAILY Discontinued losartan 25 mg Tablet 12.5 mg PO BID Qty: 30 0RF doxycycline hyclate 100 mg tablet 100 mg PO BID Patient Comments: TAKE 1 TABLET BY MOUTH TWICE DAILY Discharge Instructions Activity:: Activity as Tolerated Equipment/Supplies:: No Equipment Needed Diet:: As Tolerated Discharge Orders Discharge Orders: Discharge Order (Routine); Ordered 11/15/24 Ordered By: Oz Coleman DS: Summary Time Spent with Patient providing and/or coordinating discharge services: Greater than 30 minutes Status at Discharge Functional status at discharge: uses cane/walker Overall status at discharge: patient is progressing back to baseline Mental Status: mental status grossly normal Speech and Movement: speech and movement normal Mood: congruent mood Affect: normal affect Quality:SDOH Health Related Social Needs: 2 Health related social needs transportation insecurity (Z59.82), problems related to housing/economic circumstances (Z59.89), education (Z55.6) Health related social needs details needs a wheelchair van, wheelchair bound Health related social needs details: needs a wheelchair van, wheelchair bound Exam Narrative Exam Narrative: HEENT: NCAT MMM EOMI NECK: NO LAD NO JVD CV: RRR NO MRG LUNGS: CTAB NO AMU SPEAKING IN COMPLETE SENTENCES EXT: NO CCE BILAT PSYCH: AAOX3 NAD CAN GIVE LINEAR HISTORY Psych Mental Status: mental status grossly normal Speech and Movement: speech and movement normal Mood: congruent mood Affect: normal affect DS: Data Vitals/I&O Vitals and I&O: Vital Signs Temperature 36.6 C 11/15/24 11:08 Temperature Source Temporal Artery Scan 11/15/24 11:08 Pulse 74 11/15/24 11:08 Pulse Rhythm Regular 11/11/24 23:18 Pulse 69 11/11/24 22:01 Respiratory Rate 20 11/15/24 11:08 Respiratory Effort Normal 11/13/24 10:16 Respiratory Depth Normal 11/13/24 10:16 Respiratory Pattern Normal 11/13/24 10:16 Blood Pressure 152/78 H 11/15/24 11:08 Blood Pressure Mean 100 11/11/24 22:01 Pulse Oximetry 93 11/15/24 11:08 Oxygen Delivery Method Nasal Cannula 11/15/24 11:08 Oxygen Flow Rate 2 11/15/24 11:08 Fraction of Inspired Oxygen (FIO2) 28 11/12/24 09:13 Pain Level 0 11/15/24 11:08 Comment RN notified 11/15/24 11:08 Intake & Output 11/14/24 11/15/24 11/15/24 23:59 11:59 23:59 Intake Total 1000 / 2300 220 / 460 240 / 460 Output Total 800 / 1900 950 / 950 Balance 200 / 400 -730 / -490 240 / -490 Weight 122.7 kg Intake: IV 220 / 1220 100 / 100 Oral 780 / 1080 120 / 360 240 / 360 Output: Urine 800 / 1900 950 / 950 Other: Urine Color Dark Cristina Yellow Urine Appearance Clear Urine Odor Normal None Data Completed and Pending Labs on day of discharge: Labs from last 24 hours 11/15/24 09:13 WBC 11.44 H RBC 3.82 L Hgb 9.9 L Hct 33.3 L MCV 87 MCH 25.9 L MCHC 29.7 L RDW 16.9 H Plt Count 208 MPV 10.6 Immature Gran % 0.8 Neutrophils % 79.6 Lymphocytes % 10.6 Monocytes % 5.4 Eosinophils % 3.0 Basophils % 0.6 Nucleated RBC % 0.0 Absolute Neutrophils 9.11 H Absolute Lymphocytes 1.21 Absolute Monocytes 0.62 Absolute Eosinophils 0.34 Absolute Basophils 0.07 Sodium 136 Potassium 4.8 Chloride 104 Carbon Dioxide 26.0 Anion Gap 6.0 BUN 51 H Creatinine 2.4 H Est GFR (CKD-EPI 2020) 29.76 Glucose 258 H Calcium 9.0 Total Bilirubin 0.6 AST 14 L ALT 14 L Alkaline Phosphatase 242 H Total Protein 6.7 Albumin 2.4 L Preliminary micro results at discharge 11/12/24 01:11 Blood Culture - Preliminary Blood NO GROWTH 72 HOURS 11/12/24 01:00 Blood Culture - Preliminary Blood NO GROWTH 72 HOURS PFSH All Active Problems (Updated 11/15/24 @ 14:37 by Oz Coleman MD) 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 (Acute) COPD (chronic obstructive pulmonary disease) (Chronic) Pneumonia (Acute) Hypotension due to hypovolemia (Acute) BRAYAN (acute kidney injury) (Acute) Anemia (Chronic) Hyperthyroidism (Chronic) Elevated liver enzymes (Acute) Hx of left BKA (Acute) Hyperlipidemia (Chronic) Hyperkalemia (Acute) Surgical wound infection (Acute) CHF (congestive heart failure) (Chronic) Severe sepsis (Acute) PVD (peripheral vascular disease) (Chronic) Diabetes (Chronic) Diabetic foot ulcer (Chronic) Cellulitis of right ankle (Acute) No-show for appointment (Acute) Medical History Retinal disease, left Uses continuous positive airway pressure (CPAP) ventilation at home Hypotension Dehydration Below-knee amputation of left lower extremity Peripheral neuropathy Cervicalgia Headache, post-traumatic COVID-19 Phantom limb pain Tobacco use Chronic kidney disease, stage III (moderate) Inferior RI 2006 Hx of pancreatitis Exposure to COVID-19 virus 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 CAD (coronary artery disease) multiple stents 2006 Diabetes mellitus GERD (gastroesophageal reflux disease) HTN (hypertension) Hypercholesterolemia DARIO (obstructive sleep apnea) Obesities, morbid Migraine Neuropathy Diabetic foot ulcer Poorly controlled diabetes mellitus Chest pain Surgical History Hx of cardiac catheterization Status post below knee amputation of left lower extremity History of lung biopsy History of heart artery stent S/P foot surgery Social History Smoking/Tobacco Use Status: Former Tobacco Use Quit Date: 05/30/24 Smoking risk assessment performed?: Yes Alcohol Intake: never Drug use: Never Substance use type: does not use Housing: house Do you feel safe at home: Yes Do you feel safe in your relationship?: Yes Time Spent with Patient Time Spent with Patient: 45-69 minutes Time was spent: preparing to see the patient(eg.review tests), obtaining and/or reviewing separately otained hiistory, ordering medications,tests, procedures, referring, communicating with other health care transition mgr, indepentently interpreting results, counseling the patient and care coordination
--- NOTE | 2024-11-15 14:48 | CMDISCH_ITS ---
Date of service: 11/15/24 Time of Service: 14:48 LACE Index Scoring Tool Questions: Length of Stay (in days): 4 - 6 Was the patient admitted via the E.D.?: Yes Comorbidities: PVD, Diabetes w/o Complication and Congestive Heart Failure E.D. Visits: 3 Answers: Total Score: 15 Risk of Readmission: High Risk Care Management Discharge Plan Reason for Hospitalization: Hypotension with BRAYAN Discharge Plan: Edward is discharged home with resumption [facility] RN/PT (add OT/[employer] services.) [facility] is providing Edward with a tank from [facility]. [facility] W/C van is providing transportation. Edtammie will follow up with his PCP and discharge plan of care as instructed. Patient/Family Education Needs: Review discharge instructions and plan to follow up with community providers, discuss ask me three and goals of self care. Services Needed at Discharge: Home Health Care Services (resumption [facility] RN/PT (add OT/[employer] services.)) and Transportation ([facility] w/c van, coordinated by CM) SDOH Health Related Social Needs: Health related social needs transportation insecurity (Z59.82), problems related to housing/economic circumstances (Z59.89), education (Z55.6) Health related social needs details needs a wheelchair van, wheelchair bound Health related social needs details: needs a wheelchair van, wheelchair bound
[2024-11-15 15:12] VITALS: BP 154/80; PULSE 75; RESP 16; TEMP 36.3; O2SAT 92
[2024-11-15 15:41] LABS: C-Reactive Protein 2.31 mg/dL (<or=0.5)
[2024-11-15] MEDS: levoFLOXacin 500 MG, levoFLOXacin 250 MG 750 MG PO (16:02)
== END 2024-11-15 16:24 | disposition home health service (06) | DRG 682 ==
LOC: ER 21:13 → MS 22:26
PROVIDERS: Family Medicine; Admitting Provider Family Medicine; Emergency Provider Nurse Practitioner Family; PCP Family Medicine; Responsible Provider Hospitalist; Visit Provider Family Medicine
DX: N17.9 Acute kidney failure, unspecified (principal); J18.9 Pneumonia, unspecified organism; I13.0 Hypertensive heart and chronic kidney disease with heart failure and stage 1 through stage 4 chronic kidney disease, or unspecified chronic kidney disease; J44.0 Chronic obstructive pulmonary disease with (acute) lower respiratory infection; I50.22 Chronic systolic (congestive) heart failure; N18.4 Chronic kidney disease, stage 4 (severe); E11.22 Type 2 diabetes mellitus with diabetic chronic kidney disease; Z79.4 Long term (current) use of insulin; I25.10 Atherosclerotic heart disease of native coronary artery without angina pectoris; G47.33 Obstructive sleep apnea (adult) (pediatric); I25.2 Old myocardial infarction; Z95.5 Presence of coronary angioplasty implant and graft; Z99.81 Dependence on supplemental oxygen; E03.9 Hypothyroidism, unspecified; E86.0 Dehydration; E87.6 Hypokalemia; D64.9 Anemia, unspecified; Z89.512 Acquired absence of left leg below knee; I73.9 Peripheral vascular disease, unspecified; E78.5 Hyperlipidemia, unspecified; E11.42 Type 2 diabetes mellitus with diabetic polyneuropathy; K21.9 Gastro-esophageal reflux disease without esophagitis; E66.01 Morbid (severe) obesity due to excess calories; G43.909 Migraine, unspecified, not intractable, without status migrainosus; G54.6 Phantom limb syndrome with pain; Z87.891 Personal history of nicotine dependence; Z68.37 Body mass index [BMI] 37.0-37.9, adult; Z79.891 Long term (current) use of opiate analgesic; I95.89 Other hypotension; E11.65 Type 2 diabetes mellitus with hyperglycemia
CPT/HCPCS: 00123; 36415; 80053; 82805; 85027; 87040; 87637; 93005; 93308; 94640; 96360; 96365; 96375; 99285; J1650; 71046; 80202; 81003; 81015; 83605; 83735; 83880; 84439; 84443; 84484; 85025; 86140; 93010; 94664; 94667; 94668; 94760; 99223; 99232; 99239; J0692; J1815; J2405; J3370; J3372; J3475; J3480; J3490; J7620

== ENCOUNTER 2024-12-01 16:40 | Outpatient (REF) | payer MEDICARE, MEDICAID, SELFPAY ==
[2024-12-01 19:37] LABS: Abs Immature Grans 0.09 10^3/uL (0.0-0.06); Absolute Basophil Count 0.06 10^3/uL (0.0-0.2); Absolute Eosinophil Count 0.38 10^3/uL (0.0-0.7); Absolute Lymphocyte Count 1.71 10^3/uL (1.2-3.4); Absolute Monocyte Count 1.05 10^3/uL (0.1-0.8); Absolute Neutrophil Count 9.47 10^3/uL (1.2-6.7); Basophils % 0.5 %; HCT 32.1 % (40.0-50.0); Immature Grans % 0.7 %; Lymphocytes % 13.4 %; MCH 25.9 pg (27.0-33.0); MCHC 31.2 % (32.0-36.0); MCV 83 fL (80-95); MPV 11.3 fL (8.0-11.0); Monocytes % 8.2 %; Neutrophils % 74.2 %; Platelet Count 240 10^3/uL (130-400); RBC 3.86 10^6/uL (4.36-5.78); RDW 17.1 % (11.8-14.1); RDW-SD 51.6 fL; WBC 12.76 10^3/uL (4.4-10.8)
[2024-12-01 19:49] LABS: Prothrombin Time 10.5 sec (9.1-11.1)
[2024-12-01 19:54] LABS: ALT 12 U/L (16-63); AST 17 U/L (15-37); Albumin 2.6 g/dL (3.4-5.0); Alkaline Phosphatase 227 U/L (46-116); Anion Gap 3.7 mmol/L (3-11); BUN 36 mg/dL (7-18); Bilirubin, Total 0.6 mg/dL (0.2-1.0); CO2 31.3 mmol/L (21.0-32.0); CREATININE 1.8 mg/dL (0.70-1.30); Calcium 8.7 mg/dL (8.5-10.1); Chloride 99 mmol/L (98-107); Estimated GFR 42.03 (mL/min/1.73m2); Glucose 167 mg/dL (74-106); Potassium 4.5 mmol/L (3.5-5.1); Sodium 134 mmol/L (136-145); Total Protein 6.3 g/dL (6.4-8.2)
== END 2024-12-01 16:41 | disposition home or self-care (01) ==
LOC: NCHCN 16:40
PROVIDERS: PCP Family Medicine; Visit Provider Family Medicine
DX: R63.8 Other symptoms and signs concerning food and fluid intake (principal); R58 Hemorrhage, not elsewhere classified; Z79.02 Long term (current) use of antithrombotics/antiplatelets; Z79.82 Long term (current) use of aspirin
CPT/HCPCS: 80053; 85025; 85610

== ENCOUNTER 2024-12-08 13:53 | Emergency (ER) | payer MEDICARE, MEDICAID, SELFPAY ==
[2024-12-08] VITALS (33 sets, daily range): BP systolic 99–126; BP diastolic 41–79; PULSE 66–100; RESP 11–32; TEMP 36.9; O2SAT 2–98
--- NOTE | 2024-12-08 13:45 | RT.EKG_ITS ---
APPROVED REPORT Exam: Resting ECG Reason for Exam: sob Patient Location: E HR:70 bpm ECG Measurements Heart Rate 70 AXIS KS 181 P 81 QRSd 121 QRS -7 QT 471 T 74 QTc 509 Conclusion Sinus rhythm...normal P axis, V-rate 60- 99 Nonspecific intraventricular conduction delay...QRSd >115mS, not LBBB/RBBB
--- NOTE | 2024-12-08 14:00 | DI.RAD_ITS ---
Exam(s) XR CHEST 2V PA LATERAL EXAM: XR CHEST 2V PA LATERAL CLINICAL HISTORY: dyspnea. TECHNIQUE: 2D digital imaging was performed. COMPARISON: CT CT ABDOMEN PELVIS W from 02/17/2020 CR XR PORTABLE CHEST AP from 10/26/2024 CR XR CHEST 2V PA LATERAL from 11/11/2024 FINDINGS: 2 views: Heart size is upper normal. Previously described coronary artery stent is difficult to visualize on today's images due to suboptimal penetration. Left lung remains clear. There is further increase in amount of infiltrate in the mid-lower right lung and there appears to be a noncalcified nodular density measuring 1.5 x 1.2 cm in the right upper lobe. This remains stable when compared to CT scan of 2021. Increasing size right pleural effusion also evident. This extends into the minor fissure. IMPRESSION: Further increase in amount of right lung infiltrate and right pleural effusion. A pleural effusion o n the right side now appears to extend into the minor fissure. Stable 1.5 cm right lung nodule. DATA REPOSITORY: RADIATION DOSE DELIVERED:
--- NOTE | 2024-12-08 14:09 | ED.GENADUL_ITS ---
Discharge Plan Disposition Patient Disposition: Home Condition: Stable Discharge Details Clinical Impression: Shortness of breath, CHF (congestive heart failure), COPD (chronic obstructive pulmonary disease) Primary Care Provider: Kalli Gamble V ED Provider: Justus Felix Home Meds and New Rx's Prescriptions: New prednisone 20 mg tablet 60 mg PO DAILY 4 Days Qty: 12 0RF levofloxacin 750 mg tablet 750 mg PO DAILY Qty: 5 0RF Continued aspirin 81 mg tablet,delayed release (DR/EC) 81 mg PO DAILY clopidogrel 75 mg tablet 75 mg PO DAILY Glucagon Emergency Kit (human) 1 mg recon soln 1 mg subcut Q20M PRN Rx Instructions: until target blood sugar attained albuterol sulfate [Ventolin HFA] 90 mcg/actuation HFA aerosol inhaler 1 puff inhalation Q4H PRN ranolazine 500 mg tablet extended release 12 hr 500 mg PO BID Patient Comments: need to re-order, refill date 11/06 metoprolol succinate 100 mg tablet extended release 24 hr 100 mg PO BID isosorbide mononitrate 60 mg tablet extended release 24 hr 60 mg PO DAILY amlodipine 5 mg tablet 5 mg PO DAILY Patient Comments: TAKE 1 TABLET BY MOUTH DAILY atorvastatin 40 mg tablet 40 mg PO DAILY Patient Comments: TAKE 1 TABLET BY MOUTH DAILY budesonide-formoterol [Symbicort] 160-4.5 mcg/actuation HFA aerosol inhaler 2 puff INHALATION BID Patient Comments: INHALE 2 PUFFS BY MOUTH TWICE DAILY tamsulosin 0.4 mg capsule 0.4 mg PO DAILY Patient Comments: TAKE 1 CAPSULE BY MOUTH DAILY duloxetine [Cymbalta] 30 mg capsule,delayed release(DR/EC) 60 mg PO BID Spiriva Respimat 2.5 mcg/actuation mist 2 inh inhalation DAILY (DME) Omnipod 5 G6-G7 Pods (Gen 5) Cartridge SUBCUT Patient Comments: CHANGE POD EVERY 24 TO 48 HOURS DIRECTED (DME) blood-glucose meter [J[employer]neys Ultra2 Meter] Kit MISCELLANEOUS glucagon HCl [Glucagon (HCl) Emergency Kit] 1 mg Recon Soln 1 mg IM USEASDIRECTD pantoprazole 40 mg tablet,delayed release (DR/EC) 40 mg PO DAILY Patient Comments: TAKE 1 TABLET BY MOUTH TWICE DAILY insulin aspart U-100 [Novolog U-100 Insulin aspart] 100 unit/mL solution See Rx Instructions continuous subcutaneous infusion .COMPLEX Patient Comments: per pt no insulin since d/c Rx Instructions: medium dose sliding scale as well as meal associated insulin TID (1 unit per 5 grams of carbs) via continuous subcutaneous infusion; medium dose sliding scale as well as meal associated insulin TID (1 unit per 5 grams of carbs) (DME) Dexcom G6 Sensor Device MISCELLANEOUS Patient Comments: 1 DEVICE EVERY 10 DAYS insulin glargine-yfgn [Semglee(insulin glarg-yfgn)Pen] 100 unit/mL (3 mL) insulin pen 30 unit subcut QPM nitroglycerin 0.4 mg tablet, sublingual 0.4 mg sublingual Q5M PRN Patient Comments: DISSOLVE ONE TABLET UNDER TONGUE NEEDED FOR CHEST PAIN EVERY 5 MINUTES. NOT TO EXCEED 3 TABLETS IN 24 HOURS docusate sodium [Colace] 100 mg capsule 100 mg PO DAILY cholecalciferol (vitamin D3) [Vitamin D3] 25 mcg (1,000 unit) tablet 5,000 unit PO DAILY Probiotic Acidophilus 250 million cell capsule 1,000 mmu cells PO DAILY oxycodone-acetaminophen 10-325 mg tablet 1 tab PO BID Patient Comments: TAKE 1 TABLET BY MOUTH TWICE DAILY FOR CHRONIC PAIN torsemide 20 mg tablet 20 mg PO BID Patient Comments: TAKE 1 TABLET BY MOUTH TWICE DAILY Discharge Instructions Additional Instructions: I do recommend taking 40 mg of the torsemide in the morning and 20 mg at night. Follow-up with your primary care provider within 1 to 2 weeks. If you feel significantly more ill or short of breath return to the emergency department for reevaluation. HPI General Mode of arrival: EMS . Date/Time Provider Initiated Documentation: 12/08/24 13:58 . Limitations to Documentation: no limitations . Information obtained by: patient . History of Present Illness 64 year old M presents to the emergency department with the chief complaint of shortness of breath, described as moderate, Patient started experiencing this hour(s) (8) and it has been constant. Rest improves symptom(s), Movement worsens symptoms . Patient notes cough; denies chest pain and fever/chills. Related Data Home Medications ?Medication ?Instructions ?Recorded ?Confirmed blood-glucose meter (OneTouch 07/18/20 12/08/24 Ultra2 Meter kit) glucagon HCl 1 mg solution for 1 mg IM USEASDIRECTD for severe 07/18/20 12/08/24 injection (Glucagon (HCl) hypoglycemia Emergency Kit) albuterol sulfate 90 mcg/actuation 1 puff inhalation Q4H PRN 06/07/21 12/08/24 aerosol inhaler (Ventolin HFA) aspirin 81 mg tablet,delayed 81 mg PO DAILY 06/07/21 12/08/24 release clopidogrel 75 mg tablet 75 mg PO DAILY 06/07/21 12/08/24 glucagon 1 mg solution for 1 mg subcut Q20M PRN 06/07/21 12/08/24 injection (Glucagon Emergency Kit) isosorbide mononitrate 60 mg 60 mg PO DAILY 06/07/21 12/08/24 tablet,extended release 24 hr metoprolol succinate 100 mg 100 mg PO BID 06/07/21 12/08/24 tablet,extended release 24 hr ranolazine 500 mg tablet,extended 500 mg PO BID 06/07/21 12/08/24 release,12 hr blood-glucose sensor (Truly Accomplished G6 08/30/24 12/08/24 Sensor device) insulin aspart U-100 100 unit/mL See Rx Instructions continuous 08/30/24 12/08/24 subcutaneous solution (Novolog subcutaneous infusion .COMPLEX U-100 Insulin aspart) pantoprazole 40 mg tablet,delayed 40 mg PO DAILY 08/30/24 12/08/24 release amlodipine 5 mg tablet 5 mg PO DAILY 10/26/24 12/08/24 atorvastatin 40 mg tablet 40 mg PO DAILY 10/26/24 12/08/24 budesonide-formoterol HFA 160 2 puff inhalation BID 10/26/24 12/08/24 mcg-4.5 mcg/actuation aerosol inhaler (Symbicort) duloxetine 30 mg capsule,delayed 60 mg PO BID 10/26/24 12/08/24 release (Cymbalta) insulin pump cart,auto,BT,G6/7 10/26/24 12/08/24 (Omnipod 5 G6-G7 Pods (Gen 5) subcutaneous cartridge) tamsulosin 0.4 mg capsule 0.4 mg PO DAILY 10/26/24 12/08/24 tiotropium bromide 2.5 2 inh inhalation DAILY 10/26/24 12/08/24 mcg/actuation mist for inhalation (Spiriva Respimat) Lactobacillus acidophilus 250 1,000 mmu cells PO DAILY 11/11/24 12/08/24 million cell capsule (Probiotic Acidophilus) cholecalciferol (vitamin D3) 25 5,000 unit PO DAILY 11/11/24 12/08/24 mcg (1,000 unit) tablet (Vitamin D3) docusate sodium 100 mg capsule 100 mg PO DAILY 11/11/24 12/08/24 (Colace) insulin glargine-yfgn 100 unit/mL 30 unit subcut QPM 11/11/24 12/08/24 (3 mL) subcutaneous pen (Semglee (insulin glargine-yfgn) Pen) nitroglycerin 0.4 mg sublingual 0.4 mg sublingual Q5M PRN 11/11/24 12/08/24 tablet oxycodone-acetaminophen 10 mg-325 1 tab PO BID 11/11/24 12/08/24 mg tablet torsemide 20 mg tablet 20 mg PO BID 11/11/24 12/08/24 levofloxacin 750 mg tablet 750 mg PO DAILY #5 tabs 12/08/24 prednisone 20 mg tablet 60 mg (3 x 20 mg) PO DAILY 4 days 12/08/24 #12 tabs Previous Rx's ?Medication ?Instructions ?Recorded levofloxacin 750 mg tablet 750 mg PO DAILY #5 tabs 12/08/24 prednisone 20 mg tablet 60 mg (3 x 20 mg) PO DAILY 4 days 12/08/24 #12 tabs Allergies Allergy/AdvReac Type Severity Reaction Status Date / Time Benzodiazepines Allergy Mild Unknown Verified 12/08/24 13:59 hyoscyamine Allergy Mild Unknown Verified 12/08/24 13:59 Penicillins Allergy Unknown tolerated Unverified 12/08/24 13:59 Zosyn on admission 06/2016 insulin glargine, human AdvReac Intermediate Diarrhea Unverified 12/08/24 13:59 recombin. a (From Lantus) liraglutide (From Victoza) AdvReac Intermediate Diarrhea Unverified 12/08/24 13:59 lorazepam AdvReac Intermediate Loopy Unverified 12/08/24 13:59 metformin AdvReac Intermediate Diarrhea Unverified 12/08/24 13:59 methadone AdvReac Intermediate Loopy Unverified 12/08/24 13:59 pregabalin (From Lyrica) AdvReac Intermediate Diarrhea Verified 12/08/24 13:59 gabapentin AdvReac Mild loopy Unverified 12/08/24 13:59 morphine AdvReac Unknown Flushing Unverified 12/08/24 13:59 when given too fast General Stated Complaint: SOB/SuddenOnset CARLOS EDUARDO: 3 Review of Systems All systems reviewed & are unremarkable except as noted in HPI and below Constitutional Constitutional: Denies chills, Denies fever(s) and Denies weakness Cardiovascular Cardiovascular: Denies chest pain and Reports dyspnea Respiratory Respiratory: Reports cough and Reports dyspnea Gastrointestinal Gastrointestinal: Denies abdominal pain, Reports nausea and Denies vomiting Neurologic Neurologic: Denies weakness Exam Const General: no acute distress Orientation: alert HENMT Head: normal to inspection Ears: external ears normal General nose exam: external nose normal Mouth: moist mucous membranes Eyes General: appearance normal, both eyes and all related structures Neck Neck: normal visual inspection Resp Effort & Inspection: normal respiratory effort and able to speak in complete sentences Auscultation: wheezes Cardio Jugular venous pressure: no JVD Rate: regular rate Skin General skin exam: no rashes or lesions noted Neuro General: patient alert and patient oriented x3 Psych Mental Status: mental status grossly normal Course Vital Signs Vital signs: Vital Signs Temperature 36.9 C 12/08/24 13:53 Pulse 71 12/08/24 13:53 Respiratory Rate 26 H 12/08/24 13:53 Blood Pressure 119/60 12/08/24 13:53 Pulse Oximetry 92 12/08/24 13:53 Temperature 36.9 C 12/08/24 13:53 Pulse 71 12/08/24 13:53 Respiratory Rate 26 H 12/08/24 13:53 Blood Pressure 119/60 12/08/24 13:53 Pulse Oximetry 92 12/08/24 13:53 Oxygen Delivery Method Aerosol Mask 12/08/24 13:53 Oxygen Flow Rate 6 12/08/24 13:53 Pain Level 0 12/08/24 13:53 Medical Decision Making 64-year-old male with a history of COPD on home oxygen, diabetes, who comes in with shortness of breath and productive cough starting today. He was admitted in October and finished a course of oral levofloxacin upon discharge and states he was feeling well until this morning. He denies any chest pain or fevers. No recent travel. He has had some nausea but no vomiting. Denies any abdominal pain. He he is stable on arrival, he is able speak in full sentences on exam but does have apical and bilateral lower lobe wheezing on exam. No JVD, soft nontender abdomen. I suspect COPD exacerbation, he was given Solu-Medrol with EMS 125 mg and nebulizer. He says that this has made him feel mildly improved. Will continue nebulizers and obtain CBC, CMP and troponins and a chest x-ray. He has no pleuritic chest pain and his lung exam findings are consistent with a COPD exacerbation so I doubt a PE. Labs show no significant changes from baseline, x-ray shows right pleural effusion has continued prior. Patient asleep in reassessment and awakens easily to voice and feels well. Lungs are clear. Other than crackles at the right lower base now. I am going to have him increase his torsemide. Discussed with him observation admission versus discharge if his delta troponin is unremarkable and he prefers outpatient management which I feel is reasonable. Given his COPD I am going to initiate antibiotics Delta troponin/, he is still sleeping and awakens easily to voice and feels well. I am going to start him on levofloxacin given his had a somewhat increased cough from baseline. I am also going to have him increase his torsemide in the morning. He will follow-up with his PCP if not improving and return precautions given. Differential Diagnosis Differential Diagnosis: COPD/pneumonia/ Medical Records Medical records reviewed: Yes I reviewed the patient's medical records. Lab Data Lab results reviewed: Yes I reviewed the patient's lab results. 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 (Acute) COPD (chronic obstructive pulmonary disease) (Chronic) Anemia (Chronic) Hyperthyroidism (Chronic) Elevated liver enzymes (Acute) Hx of left BKA (Acute) Hyperlipidemia (Chronic) Hyperkalemia (Acute) Surgical wound infection (Acute) CHF (congestive heart failure) (Chronic) Severe sepsis (Acute) PVD (peripheral vascular disease) (Chronic) Diabetes (Chronic) Diabetic foot ulcer (Chronic) Cellulitis of right ankle (Acute) No-show for appointment (Acute) Medical History Retinal disease, left Uses continuous positive airway pressure (CPAP) ventilation at home Hypotension Dehydration Below-knee amputation of left lower extremity Peripheral neuropathy Cervicalgia Headache, post-traumatic COVID-19 Phantom limb pain Tobacco use Chronic kidney disease, stage III (moderate) Inferior DE 2006 Hx of pancreatitis Exposure to COVID-19 virus 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 CAD (coronary artery disease) multiple stents 2006 Diabetes mellitus GERD (gastroesophageal reflux disease) HTN (hypertension) Hypercholesterolemia DARIO (obstructive sleep apnea) Obesities, morbid Migraine Neuropathy Diabetic foot ulcer Poorly controlled diabetes mellitus Chest pain Surgical History Hx of cardiac catheterization Status post below knee amputation of left lower extremity History of lung biopsy History of heart artery stent S/P foot surgery Social History Smoking/Tobacco Use Status: Former Tobacco Use Quit Date: 05/30/24 Smoking risk assessment performed?: Yes Alcohol Intake: never Drug use: Never Substance use type: does not use Housing: house Do you feel safe at home: Yes Do you feel safe in your relationship?: Yes
[2024-12-08] MEDS: Ondansetron 4 MG/2 ML VIAL IVP (14:41)
[2024-12-08] MEDS: Albuterol/Ipratropium 3 ML UPD VIAL UPD (14:42)
[2024-12-08 14:58] LABS: BE (Venous) 4 mmol/L (-2-3); HCO3 (Venous) 29 mmol/L (23-28); O2 Sat (Venous) 86 %; TCO2 (Venous) 27 mmol/L (24-29); pCO2 (Venous) 46 mmHg (41-51); pH (Venous) 7.41 (7.31-7.41); pO2 (Venous) 53 mmHg
[2024-12-08 15:23] LABS: ALT 8 U/L (16-63); AST 11 U/L (15-37); Albumin 2.5 g/dL (3.4-5.0); Alkaline Phosphatase 198 U/L (46-116); Anion Gap 8.4 mmol/L (3-11); BUN 45 mg/dL (7-18); Bilirubin, Total 0.6 mg/dL (0.2-1.0); CO2 28.6 mmol/L (21.0-32.0); CREATININE 2.3 mg/dL (0.70-1.30); Calcium 9.1 mg/dL (8.5-10.1); Chloride 101 mmol/L (98-107); Estimated GFR 31.32 (mL/min/1.73m2); Glucose 274 mg/dL (74-106); Magnesium 1.9 mg/dL (1.8-2.4); NT-proBNP 4866 pg/mL (<300); Potassium 4.4 mmol/L (3.5-5.1); Sodium 138 mmol/L (136-145); Total Protein 6.8 g/dL (6.4-8.2); Troponin I 13 ng/L (<or=76)
[2024-12-08 15:32] LABS: COVID-19 PCR Negative (Negative); Influenza A PCR Negative (Negative); Influenza B PCR Negative (Negative); RSV PCR Negative (Negative)
[2024-12-08 15:33] LABS: Source Nasopharynx
[2024-12-08 15:49] LABS: Procalcitonin < 0.10 ng/mL
[2024-12-08 16:14] LABS: Troponin I 14 ng/L (<or=76)
[2024-12-08] MEDS: levoFLOXacin 500 MG, levoFLOXacin 250 MG 750 MG PO (16:58)
== END 2024-12-08 17:34 | disposition home or self-care (01) ==
PROVIDERS: Emergency Provider Emergency Medicine; PCP Family Medicine
DX: J44.9 Chronic obstructive pulmonary disease, unspecified (principal); E11.22 Type 2 diabetes mellitus with diabetic chronic kidney disease; I50.9 Heart failure, unspecified; N18.30 Chronic kidney disease, stage 3 unspecified; I25.10 Atherosclerotic heart disease of native coronary artery without angina pectoris; I25.2 Old myocardial infarction; E78.00 Pure hypercholesterolemia, unspecified; Z79.02 Long term (current) use of antithrombotics/antiplatelets; Z79.84 Long term (current) use of oral hypoglycemic drugs; Z79.82 Long term (current) use of aspirin; Z99.81 Dependence on supplemental oxygen
CPT/HCPCS: 80053; 82805; 84145; 87637; 93005; 94640; 96374; 99285; 71046; 83735; 83880; 84484; 93010; 99284; J2405; J7620

== ENCOUNTER 2024-12-15 15:38 | Outpatient (REF) | payer MEDICARE, MEDICAID, SELFPAY ==
[2024-12-15 15:54] LABS: HCT 33.7 % (40.0-50.0); HGB 10.7 g/dL (13.5-17.5); MCH 25.5 pg (27.0-33.0); MCHC 31.8 % (32.0-36.0); MCV 80 fL (80-95); MPV 11.9 fL (8.0-11.0); Platelet Count 244 10^3/uL (130-400); RDW 17.5 % (11.8-14.1); RDW-SD 50.8 fL; WBC 18.84 10^3/uL (4.4-10.8)
[2024-12-15 16:02] LABS: Anion Gap 5.9 mmol/L (3-11); BUN 68 mg/dL (7-18); CO2 28.1 mmol/L (21.0-32.0); CREATININE 2.2 mg/dL (0.70-1.30); Chloride 101 mmol/L (98-107); Estimated GFR 33.04 (mL/min/1.73m2); Glucose 286 mg/dL (74-106); Potassium 4.1 mmol/L (3.5-5.1); Sodium 135 mmol/L (136-145); T4 6.5 ug/dL (4.7-13.3)
[2024-12-15 16:06] LABS: Calcium 9.1 mg/dL (8.5-10.1)
== END 2024-12-15 15:39 | disposition home or self-care (01) ==
LOC: NCHCN 15:38
PROVIDERS: PCP Family Medicine; Visit Provider Family Medicine
DX: I50.23 Acute on chronic systolic (congestive) heart failure (principal)
CPT/HCPCS: 80048; 85027; 84436

== ENCOUNTER 2024-12-20 15:43 | Inpatient (IN) | payer MEDICARE, SELFPAY ==
[2024-12-20] VITALS (65 sets, daily range): BP systolic 77–155; BP diastolic 25–72; PULSE 70–77; RESP 5–31; TEMP 36.3; O2SAT 92–100
--- NOTE | 2024-12-20 15:45 | DI.RAD_ITS ---
Exam(s) XR CHEST 2V PA LATERAL EXAM: XR CHEST 2V PA LATERAL CLINICAL HISTORY: Cough, wheezing TECHNIQUE: 2D digital imaging was performed. Two views. COMPARISON: CR CHEST 2 VIEWS PA,LAT from 12/01/2009 CR XR PORTABLE CHEST AP from 10/26/2024 CR XR CHEST 2V PA LATERAL from 12/08/2024 FINDINGS: HEART: Enlarged, unchanged. Aorta: Not dilated. PULMONARY VASCULATURE: Normal. MEDIASTINUM: Unremarkable. LUNGS: Streaky densities are seen at the right lung base. The densities have improved since the prio r exam. Circumscribed nodule again noted in the right upper lobe, unchanged since 16/05. PLEURAL SPACE: Small right pleural effusion with significant improvement from prior. No pneumothorax . BONE:Old right rib fracture. SOFT TISSUES: Unremarkable. IMPRESSION: Some improvement in right pleural effusion and right basilar densities with persistent small right ri ght pleural effusion and right basilar streaky densities. The preliminary [facility] report was reviewed. DATA REPOSITORY: RADIATION DOSE DELIVERED:
--- NOTE | 2024-12-20 15:45 | RT.EKG_ITS ---
APPROVED REPORT Exam: Resting ECG Reason for Exam: low BP Patient Location: E HR:73 bpm ECG Measurements Heart Rate 73 AXIS [place] 156 P 59 QRSd 114 QRS -1 QT 431 T 84 QTc 474 Conclusion Sinus rhythm, rate 73 No interval abnormalities No STEMI No significant changes from priors
--- NOTE | 2024-12-20 15:55 | ED.GENADUL_ITS ---
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 Primary Care Provider: Kalli Gamble V ED Provider: Sienna Paul Home Meds and New Rx's Prescriptions: No Action aspirin 81 mg tablet,delayed release (DR/EC) 81 mg PO DAILY clopidogrel 75 mg tablet 75 mg PO DAILY Glucagon Emergency Kit (human) 1 mg recon soln 1 mg subcut Q20M PRN Rx Instructions: until target blood sugar attained albuterol sulfate [Ventolin HFA] 90 mcg/actuation HFA aerosol inhaler 2 puff inhalation Q4H PRN ranolazine 500 mg tablet extended release 12 hr 500 mg PO BID Patient Comments: need to re-order, refill date 11/06 metoprolol succinate 100 mg tablet extended release 24 hr 100 mg PO BID isosorbide mononitrate 60 mg tablet extended release 24 hr 60 mg PO DAILY amlodipine 5 mg tablet 5 mg PO DAILY Patient Comments: TAKE 1 TABLET BY MOUTH DAILY atorvastatin 40 mg tablet 40 mg PO DAILY Patient Comments: TAKE 1 TABLET BY MOUTH DAILY budesonide-formoterol [Symbicort] 160-4.5 mcg/actuation HFA aerosol inhaler 2 puff INHALATION BID Patient Comments: INHALE 2 PUFFS BY MOUTH TWICE DAILY tamsulosin 0.4 mg capsule 0.4 mg PO QHS Patient Comments: TAKE 1 CAPSULE BY MOUTH DAILY duloxetine [Cymbalta] 30 mg capsule,delayed release(DR/EC) 60 mg PO BID Spiriva Respimat 2.5 mcg/actuation mist 2 inh inhalation DAILY (DME) Omnipod 5 G6-G7 Pods (Gen 5) Cartridge SUBCUT Patient Comments: CHANGE POD EVERY 24 TO 48 HOURS DIRECTED (DME) blood-glucose meter [Diveboard Ultra2 Meter] Kit MISCELLANEOUS glucagon HCl [Glucagon (HCl) Emergency Kit] 1 mg Recon Soln 1 mg IM USEASDIRECTD pantoprazole 40 mg tablet,delayed release (DR/EC) 40 mg PO BID Patient Comments: TAKE 1 TABLET BY MOUTH TWICE DAILY insulin aspart U-100 [Novolog U-100 Insulin aspart] 100 unit/mL solution See Rx Instructions continuous subcutaneous infusion .COMPLEX Patient Comments: per pt no insulin since d/c Rx Instructions: medium dose sliding scale as well as meal associated insulin TID (1 unit per 5 grams of carbs) via continuous subcutaneous infusion; medium dose sliding scale as well as meal associated insulin TID (1 unit per 5 grams of carbs) (DME) Dexcom G6 Sensor Device MISCELLANEOUS Patient Comments: 1 DEVICE EVERY 10 DAYS insulin glargine-yfgn [Semglee(insulin glarg-yfgn)Pen] 100 unit/mL (3 mL) insulin pen 24 unit subcut QPM nitroglycerin 0.4 mg tablet, sublingual 0.4 mg sublingual Q5M PRN Patient Comments: DISSOLVE ONE TABLET UNDER TONGUE NEEDED FOR CHEST PAIN EVERY 5 MINUTES. NOT TO EXCEED 3 TABLETS IN 24 HOURS docusate sodium [Colace] 100 mg capsule 100 mg PO BID PRN cholecalciferol (vitamin D3) [Vitamin D3] 25 mcg (1,000 unit) tablet 5,000 unit PO DAILY Probiotic Acidophilus 250 million cell capsule 1,000 mmu cells PO DAILY oxycodone-acetaminophen 10-325 mg tablet 1 tab PO BID PRN Patient Comments: TAKE 1 TABLET BY MOUTH TWICE DAILY FOR CHRONIC PAIN torsemide 20 mg tablet 20 mg PO BID Patient Comments: TAKE 1 TABLET BY MOUTH TWICE DAILY sodium bicarbonate 650 mg tablet 1,300 mg PO BID Patient Comments: TAKE 2 TABLETS BY MOUTH THREE TIMES DAILY spironolactone 25 mg tablet 12.5 mg PO BID Patient Comments: TAKE 1/2 TABLET BY MOUTH TWICE DAILY cefadroxil 500 mg capsule 500 mg PO BID Patient Comments: TAKE 1 CAPSULE BY MOUTH TWICE DAILY FOR 7 DAYS losartan 25 mg tablet 12.5 mg PO BID Patient Comments: TAKE 1/2 TABLET BY MOUTH TWICE DAILY HPI General Mode of arrival: EMS . Date/Time Provider Initiated Documentation: 12/20/24 15:52 . Limitations to Documentation: no limitations . Information obtained by: patient, EMS and old records reviewed . HPI Narrative: This is a 64-year-old male patient with a past medical history significant for COPD on chronic 2 L of oxygen by nasal cannula at baseline, history of left BKA, recent right ankle fracture with wound VAC in place, history of diabetes, CHF, hyperlipidemia, and recent admission for hypotension and pneumonia, brought in by EMS with low blood pressure and shortness of breath. The patient was being evaluated by his home health team, and they checked his blood pressure and noticed it to be quite low, between 60 and 80 systolic, patient felt slightly lightheaded during this event but was conscious and without chest pain or other acute symptomatic complaint. EMS arrived and noted the patient to be normotensive, but with some wheezing in his right lung for which she was provided with a duo nebulizer treatment to good effect. He did not require any increase in his oxygen, states that he has had a worsening cough productive of greenish sputum today. He was seen in the emergency department about a week or 2 ago and completed a course of prednisone and levofloxacin for his COPD. The patient is without fever, chest pain, and has been taking all medicines as prescribed. He did recently increase his torsemide, and states he has been ur inating appropriately. Related Data Home Medications ?Medication ?Instructions ?Recorded ?Confirmed blood-glucose meter ([employer] 07/18/20 12/20/24 Ultra2 Meter kit) glucagon HCl 1 mg solution for 1 mg IM USEASDIRECTD for severe 07/18/20 12/20/24 injection (Glucagon (HCl) hypoglycemia Emergency Kit) albuterol sulfate 90 mcg/actuation 2 puff inhalation Q4H PRN 06/07/21 12/20/24 aerosol inhaler (Ventolin HFA) aspirin 81 mg tablet,delayed 81 mg PO DAILY 06/07/21 12/20/24 release clopidogrel 75 mg tablet 75 mg PO DAILY 06/07/21 12/20/24 glucagon 1 mg solution for 1 mg subcut Q20M PRN 06/07/21 12/20/24 injection (Glucagon Emergency Kit) isosorbide mononitrate 60 mg 60 mg PO DAILY 06/07/21 12/20/24 tablet,extended release 24 hr metoprolol succinate 100 mg 100 mg PO BID 06/07/21 12/20/24 tablet,extended release 24 hr ranolazine 500 mg tablet,extended 500 mg PO BID 06/07/21 12/20/24 release,12 hr blood-glucose sensor (Be Sport G6 08/30/24 12/20/24 Sensor device) insulin aspart U-100 100 unit/mL See Rx Instructions continuous 08/30/24 12/20/24 subcutaneous solution (Novolog subcutaneous infusion .COMPLEX U-100 Insulin aspart) pantoprazole 40 mg tablet,delayed 40 mg PO BID 08/30/24 12/20/24 release amlodipine 5 mg tablet 5 mg PO DAILY 10/26/24 12/20/24 atorvastatin 40 mg tablet 40 mg PO DAILY 10/26/24 12/20/24 budesonide-formoterol HFA 160 2 puff inhalation BID 10/26/24 12/20/24 mcg-4.5 mcg/actuation aerosol inhaler (Symbicort) duloxetine 30 mg capsule,delayed 60 mg PO BID 10/26/24 12/20/24 release (Cymbalta) insulin pump cart,auto,BT,G6/7 10/26/24 12/20/24 (Omnipod 5 G6-G7 Pods (Gen 5) subcutaneous cartridge) tamsulosin 0.4 mg capsule 0.4 mg PO QHS 10/26/24 12/20/24 tiotropium bromide 2.5 2 inh inhalation DAILY 10/26/24 12/20/24 mcg/actuation mist for inhalation (Spiriva Respimat) Lactobacillus acidophilus 250 1,000 mmu cells PO DAILY 11/11/24 12/20/24 million cell capsule (Probiotic Acidophilus) cholecalciferol (vitamin D3) 25 5,000 unit PO DAILY 11/11/24 12/20/24 mcg (1,000 unit) tablet (Vitamin D3) docusate sodium 100 mg capsule 100 mg PO BID PRN 11/11/24 12/20/24 (Colace) insulin glargine-yfgn 100 unit/mL 24 unit subcut QPM 11/11/24 12/20/24 (3 mL) subcutaneous pen (Semglee (insulin glargine-yfgn) Pen) nitroglycerin 0.4 mg sublingual 0.4 mg sublingual Q5M PRN 11/11/24 12/20/24 tablet oxycodone-acetaminophen 10 mg-325 1 tab PO BID PRN 11/11/24 12/20/24 mg tablet torsemide 20 mg tablet 20 mg PO BID 11/11/24 12/20/24 cefadroxil 500 mg capsule 500 mg PO BID 12/20/24 12/20/24 losartan 25 mg tablet 12.5 mg PO BID 12/20/24 12/20/24 sodium bicarbonate 650 mg tablet 1,300 mg PO BID 12/20/24 12/20/24 spironolactone 25 mg tablet 12.5 mg PO BID 12/20/24 12/20/24 Allergies Allergy/AdvReac Type Severity Reaction Status Date / Time Benzodiazepines Allergy Mild Unknown Verified 12/20/24 15:54 hyoscyamine Allergy Mild Unknown Verified 12/20/24 15:54 Penicillins Allergy Unknown tolerated Unverified 12/20/24 15:54 Zosyn on admission 06/2016 insulin glargine, human AdvReac Intermediate Diarrhea Unverified 12/20/24 15:54 recombin. a (From Lantus) liraglutide (From Victoza) AdvReac Intermediate Diarrhea Unverified 12/20/24 15:54 lorazepam AdvReac Intermediate Loopy Unverified 12/20/24 15:54 metformin AdvReac Intermediate Diarrhea Unverified 12/20/24 15:54 methadone AdvReac Intermediate Loopy Unverified 12/20/24 15:54 pregabalin (From Lyrica) AdvReac Intermediate Diarrhea Verified 12/20/24 15:54 gabapentin AdvReac Mild loopy Unverified 12/20/24 15:54 morphine AdvReac Unknown Flushing Unverified 12/20/24 15:54 when given too fast General Stated Complaint: Dizzy/Sync CARLOS EDUARDO: 3 Exam Narrative Exam Narrative: Gen: Awake and alert, in no apparent distress HEENT: Non-icteric sclera Neck: Supple Lungs: No apparent respiratory distress, normal respiratory effort. Lung sounds are now clear and equal bilaterally, on his baseline 2 L, though a junky soun ding cough is appreciated during this provider's exam CV: Appears well perfused, heart with regular rate and rhythm, strong distal pulses Abdomen: Non-distended MSK: Status post left BKA, right ankle/foot dressed with wound VAC in place Skin: Visualized skin without rashes, cyanosis. Neuro: Normal Gait, no obvious focal deficits or facial asymmetry. Speaks in full, clear sentences. Psych: Appropriate for situation. Course Vital Signs Vital signs: Vital Signs Pulse 74 12/20/24 15:47 Respiratory Rate 13 12/20/24 15:47 Blood Pressure 106/57 L 12/20/24 15:47 Pulse Oximetry 96 12/20/24 15:47 Pulse 74 12/20/24 15:47 Respiratory Rate 13 12/20/24 15:47 Blood Pressure 106/57 L 12/20/24 15:47 Blood Pressure Position Sitting 12/20/24 15:47 Pulse Oximetry 96 12/20/24 15:47 Oxygen Delivery Method Nasal Cannula 12/20/24 15:47 Oxygen Flow Rate 2 12/20/24 15:47 Pain Level 0 12/20/24 15:47 Medical Decision Making This is a 64-year-old male patient presenting for evaluation of hypotension, lightheadedness, and shortness of breath with new cough. Differential includes but is not limited to COPD exacerbation, pneumonia, bronchitis. I also cons idered pulmonary edema and pleural effusion, as well as dehydration, metabolic and electrolyte derangement, kidney injury, anemia. I am reassured that the patient is normotensive now, no reported position changes but I certainly considered orthostasis and vasovagal syndrome. The patient has no chest pain to significantly increase my concern for ACS. I reviewed the patient's EKG, which shows a sinus rhythm without evidence of ischemia, interval abnormality, or ectopy. This is unchanged when compared to the most recent prior. I do not see an indication at this time to proceed with further bronchodilator therapy given his clear lungs, but we will provide him with a dose of prednisone given the presumptive COPD exacerbation. We will obtain a chest x-ray, and labs to include CBC, CMP, magnesium, troponin, and BNP. - I reviewed the patient's laboratory studies, he does have a notable leukocytosis, though stable when compared to priors at 18.5. He has a stable anemia and no thrombocytopenia. Chemistry panel is without significant electrolyte derangements, new or worsening kidney dysfunction, though he does have baseline renal disease with a BUN of 66 and a creatinine of 2.5. Glucose elevated to 395 with no associated decrease in his bicarb or elevation in his anion gap to suggest DKA. Magnesium very slightly low at 1.6 and no liver dysfunction. Troponin is negative and without interval increase on 1 hour recheck. BNP is slightly elevated compared to priors to 5500 today. I am concerned that the patient's ongoing hypotension, with blood pressure readings as low as the 70s systolic on standing with associated symptoms of orthostasis may be due to overdiuresis in the setting of increasing his torsemide dosing over the last week and a half. However, I fear that he will require very slow rehydration given the evidence of ongoing heart failure. His chest x-ray shows improvement in his pleural effusion and vascular congestion. I provided him with a total of 1 L of isotonic fluid in two 500 cc boluses, with intermittent improvement in his blood pressure following each. However, he remains with some lightheadedness especially when sitting or standing. I have provided him with 2 duo nebulizer treatments for his baseline COPD, though I note no evidence of hypoxia or increasing oxygen requirement, and he states that he takes these at home as needed. I feel that this patient meets criteria for admission, would benefit from formal echo as I do not note any recent's, and ongoing rehydration. I reached out to the hospitalist who is graciously accepted the patient for admission to their service. Remained hemodynamically improved while under my care. 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 (Acute) COPD (chronic obstructive pulmonary disease) (Chronic) Anemia (Chronic) Hyperthyroidism (Chronic) Elevated liver enzymes (Acute) Hx of left BKA (Acute) Hyperlipidemia (Chronic) Hyperkalemia (Acute) Surgical wound infection (Acute) CHF (congestive heart failure) (Chronic) Severe sepsis (Acute) PVD (peripheral vascular disease) (Chronic) Diabetes (Chronic) Diabetic foot ulcer (Chronic) Cellulitis of right ankle (Acute) No-show for appointment (Acute) Medical History Retinal disease, left Uses continuous positive airway pressure (CPAP) ventilation at home Hypotension Dehydration Below-knee amputation of left lower extremity Peripheral neuropathy Cervicalgia Headache, post-traumatic COVID-19 Phantom limb pain Tobacco use Chronic kidney disease, stage III (moderate) Inferior MS 2006 Hx of pancreatitis Exposure to COVID-19 virus 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 CAD (coronary artery disease) multiple stents 2006 Diabetes mellitus GERD (gastroesophageal reflux disease) HTN (hypertension) Hypercholesterolemia DARIO (obstructive sleep apnea) Obesities, morbid Migraine Neuropathy Diabetic foot ulcer Poorly controlled diabetes mellitus Chest pain Surgical History Hx of cardiac catheterization Status post below knee amputation of left lower extremity History of lung biopsy History of heart artery stent S/P foot surgery Social History Smoking/Tobacco Use Status: Former Tobacco Use Quit Date: 05/30/24 Smoking risk assessment performed?: Yes Alcohol Intake: never Drug use: Never Substance use type: does not use Housing: house Do you feel safe at home: Yes Do you feel safe in your relationship?: Yes
[2024-12-20 16:05] LABS: Abs Immature Grans 0.36 10^3/uL (0.0-0.06); Absolute Basophil Count 0.06 10^3/uL (0.0-0.2); Absolute Eosinophil Count 0.61 10^3/uL (0.0-0.7); Absolute Monocyte Count 1.37 10^3/uL (0.1-0.8); Absolute Neutrophil Count 14.19 10^3/uL (1.2-6.7); Basophils % 0.3 %; Eosinophils % 3.3 %; HCT 34.2 % (40.0-50.0); HGB 10.9 g/dL (13.5-17.5); Immature Grans % 1.9 %; Lymphocytes % 10.6 %; MCH 25.6 pg (27.0-33.0); MCHC 31.9 % (32.0-36.0); MCV 80 fL (80-95); MPV 10.8 fL (8.0-11.0); Monocytes % 7.4 %; Neutrophils % 76.5 %; Platelet Count 222 10^3/uL (130-400); RBC 4.26 10^6/uL (4.36-5.78); RDW 18.1 % (11.8-14.1); RDW-SD 51.9 fL; WBC 18.55 10^3/uL (4.4-10.8)
[2024-12-20 16:06] LABS: Absolute Lymphocyte Count 1.97 10^3/uL (1.2-3.4)
--- NOTE | 2024-12-20 16:58 | DI.VRAD_ITS ---
PROCEDURE INFORMATION: Exam: XR Chest Exam date and time: 12/20/2024 4:29 PM Age: 64 years old Clinical indication: Cough and wheezing; Additional info: Cough, wheezing TECHNIQUE: Imaging protocol: Radiologic exam of the chest. Views: 2 views. COMPARISON: CR XR CHEST 2V PA LATERAL 12/08/2024 2:31 PM FINDINGS: Lungs: Stable 17 mm calcified granuloma in the right mid lung. There has been interval improvement of consolidative atelectasis in the right lower lung. Left lung remains clear Pleural spaces: Small amount of pleural fluid in the right costophrenic angle, significantly improved from previous. No pneumothorax. Heart/Mediastinum: Unremarkable. No cardiomegaly. Bones/joints: Moderate degenerative changes of the thoracic spine. Mild degenerative changes of the shoulders. IMPRESSION: Resolving consolidative atelectasis and pleural fluid in the right lower chest Dictated and Authenticated by: Jj Arevalo MD. Orderin [facility] Waldo El MD
[2024-12-20 17:02] LABS: ALT 13 U/L (16-63); AST 12 U/L (15-37); Albumin 2.6 g/dL (3.4-5.0); Alkaline Phosphatase 155 U/L (46-116); Anion Gap 2.6 mmol/L (3-11); BUN 66 mg/dL (7-18); Bilirubin, Total 0.6 mg/dL (0.2-1.0); CO2 30.4 mmol/L (21.0-32.0); CREATININE 2.5 mg/dL (0.70-1.30); Calcium 8.7 mg/dL (8.5-10.1); Chloride 101 mmol/L (98-107); Estimated GFR 28.34 (mL/min/1.73m2); Glucose 395 mg/dL (74-106); Magnesium 1.6 mg/dL (1.8-2.4); NT-proBNP 5597 pg/mL (<300); Potassium 5.1 mmol/L (3.5-5.1); Sodium 134 mmol/L (136-145); Total Protein 6.2 g/dL (6.4-8.2); Troponin I 20 ng/L (<or=76)
[2024-12-20] MEDS: Lactated Ringers 500 ML IV (17:23)
[2024-12-20 18:14] LABS: Troponin I 20 ng/L (<or=76)
[2024-12-20] MEDS: Albuterol/Ipratropium 3 ML UPD VIAL UPD (18:32)
[2024-12-20] MEDS: Normal Saline 500 ML IV (19:12)
--- NOTE | 2024-12-20 20:46 | W.PM.HP.N ---
Date of service: 12/20/24 Time of Service: 20:46 Assessment and Plan Assessment and plan (1) Hypotension due to drugs: Start date: 12/20/24 Status: Acute Assessment and plan: This is a 64-year-old gentleman who recently was treated for pneumonia with prednisone pulse and has dizziness and low blood pressure after cessation of prednisone pulse therapy and with increase diuretic therapy for CHF. He was gently hydrated in the ED with some improvement and restarted on hydrocortisone IV for what appears to be mild adrenal insufficiency probably drug-induced as well. Most of his antihypertensives were held with metoprolol being given in split dose but he will be restarted on his usual outpatient medications except for decreased diuretic with torsemide possibly just once a day. He may need a slow prednisone wean at discharge. He is improving with treatment and adjustment of his medical therapy should resolve his presenting issue. Long-term he needs to follow closely for adrenal suppression with his prednisone use and may require chronic prednisone therapy for his COPD. Echocardiogram should be updated. Patient is a full code. (2) Hypomagnesemia: Start date: 12/20/24 Status: Acute Assessment and plan: Replete IV and consider long-term magnesium supplement with patient on diuretics. (3) CHF (congestive heart failure): Status: Chronic Assessment and plan: Hold torsemide and adjust dosing once patient is rehydrated and not hypotensive. Follow-up cardiology and update echocardiogram as mentioned. BNP is stable. (4) COPD (chronic obstructive pulmonary disease): Status: Chronic Assessment and plan: Patient to stop smoking the end of 2023 and has frequent exacerbations of his COPD. Continue outpatient medical therapy with possibly needing prednisone chronically with a slow wean and then a low-dose continuous prednisone treatment if this would be helpful. He does have diabetes and this will be affected by his treatment with steroids. He does have chronic home O2 at 2 L/min per nasal cannula. His hypoxic respiratory failure appears to be stable. If symptoms worsen check VBG. (5) HTN (hypertension): Assessment and plan: Chronically on antihypertensives and diuretics with mostly being held upon admission because of hypotension. Reinitiate medical therapy adjusting as needed. Patient does want to take less torsemide. He is watching his salt intake. (6) Diabetes mellitus: Assessment and plan: Glucometer measurements before meals and bedtime with sliding scale coverage. Continue oral medical therapy the same. (7) PVD (peripheral vascular disease): Status: Chronic Assessment and plan: Continue Plavix. (8) CAD (coronary artery disease): Assessment and plan: No evidence of exacerbation with patient to continue outpatient medical therapy. (9) Tobacco use: Assessment and plan: Quitting in May 2024. Patient is oxygen dependent as mentioned. (10) Hyperlipidemia: Status: Chronic Assessment and plan: Continue outpatient therapy with statin. (11) GERD (gastroesophageal reflux disease): Assessment and plan: Continue PPI. (12) DARIO (obstructive sleep apnea): Assessment and plan: Patient is not on BiPAP or CPAP and was advised to lose weight. Stopping smoking was appropriate. (13) Phantom limb pain: Assessment and plan: Continue oxycodone for pain management as needed with patient stable on this treatment and not at risk for misuse of his medication. VPMS was consistent with his treatment. No drug screen was performed. History of Present Illness History of Present Illness Chief Complaint: Lightheadedness and weakness after treatment for outpatient pneumonia. Narrative: This is a 64-year-old male patient who has complicated past medical history with chronic COPD having been treated for an outpatient right lower lobe pneumonia with Levaquin and prednisone within the last 2 weeks. He has been off steroids and the antibiotic since mid last week and shortly after stopping prednisone he began to have weakness and dizziness. He does have a history of peripheral vascular disease as well as status post left BKA with chronic phantom pain on oxycodone which has not varied with review of VPMS. He has not increased his pain management and has not changed his medications recently. He denies any hypoglycemic episodes. He states that he has felt weak and dizzy after prednisone in the past but this was a worse episode. He also has CHF with increasing dosing of torsemide recently and in the ED he was thought to be hypovolemic from his increased diuresis. His BNP was elevated but stable and his creatinine was at baseline with CKD. He did have a low sodium and slightly elevated or high normal potassium and it appears some of his symptoms may be from steroid withdrawal being on steroids chronically intermittently. He was initiated on hydrocortisone and did feel somewhat better and was respond to gentle IV hydration for his hypotension. He was orthostatic upon presentation. His symptoms began as stated just after stopping prednisone last week. Imaging in the ED did not reveal any new infiltrates at that improving chest x-ray from previous. He was admitted with holding his usual antihypertensives except for split dosing metoprolol as blood pressure was improving with these treatments. Patient is chronically ill with complications of diabetes and has stated he did not have hypoglycemia and in fact was hyperglycemic upon presentation. He was admitted to adjust his meds and consider a slower wean of prednisone with a drug-induced hypovolemia and adrenal insufficiency. He is a full code. Review of Systems Narrative: 13 point review of systems otherwise unrevealing or stable. Patient denies any increasing cough or fever at home. PFSH All Active Problems Acute hypotension (Acute) Hypomagnesemia (Acute) Hypotension due to drugs (Acute) Shortness of breath (Acute) 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 (Acute) COPD (chronic obstructive pulmonary disease) (Chronic) Anemia (Chronic) Hyperthyroidism (Chronic) Elevated liver enzymes (Acute) Hx of left BKA (Acute) Hyperlipidemia (Chronic) Hyperkalemia (Acute) Surgical wound infection (Acute) CHF (congestive heart failure) (Chronic) Severe sepsis (Acute) PVD (peripheral vascular disease) (Chronic) Diabetes (Chronic) Diabetic foot ulcer (Chronic) Cellulitis of right ankle (Acute) No-show for appointment (Acute) Medical History Retinal disease, left Uses continuous positive airway pressure (CPAP) ventilation at home Hypotension Dehydration Below-knee amputation of left lower extremity Peripheral neuropathy Cervicalgia Headache, post-traumatic COVID-19 Phantom limb pain Tobacco use Chronic kidney disease, stage III (moderate) Inferior [place] 2006 Hx of pancreatitis Exposure to COVID-19 virus 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 CAD (coronary artery disease) multiple stents 2006 Diabetes mellitus GERD (gastroesophageal reflux disease) HTN (hypertension) Hypercholesterolemia DARIO (obstructive sleep apnea) Obesities, morbid Migraine Neuropathy Diabetic foot ulcer Poorly controlled diabetes mellitus Chest pain Surgical History Hx of cardiac catheterization Status post below knee amputation of left lower extremity History of lung biopsy History of heart artery stent S/P foot surgery Social History Smoking/Tobacco Use Status: Former Tobacco Use Quit Date: 05/30/24 Smoking risk assessment performed?: Yes Alcohol Intake: never Drug use: Never Substance use type: does not use Housing: house Do you feel safe at home: Yes Do you feel safe in your relationship?: Yes Meds Allergies and Home Medications Allergies Allergy/AdvReac Type Severity Reaction Status Date / Time Benzodiazepines Allergy Mild Unknown Verified 12/20/24 15:54 hyoscyamine Allergy Mild Unknown Verified 12/20/24 15:54 Penicillins Allergy Unknown tolerated Unverified 12/20/24 15:54 Zosyn on admission 06/2016 insulin glargine, human AdvReac Intermediate Diarrhea Unverified 12/20/24 15:54 recombin. a (From Lantus) liraglutide (From Victoza) AdvReac Intermediate Diarrhea Unverified 12/20/24 15:54 lorazepam AdvReac Intermediate Loopy Unverified 12/20/24 15:54 metformin AdvReac Intermediate Diarrhea Unverified 12/20/24 15:54 methadone AdvReac Intermediate Loopy Unverified 12/20/24 15:54 pregabalin (From Lyrica) AdvReac Intermediate Diarrhea Verified 12/20/24 15:54 gabapentin AdvReac Mild loopy Unverified 12/20/24 15:54 morphine AdvReac Unknown Flushing Unverified 12/20/24 15:54 when given too fast Home Medications ?Medication ?Instructions ?Recorded ?Confirmed ?Type blood-glucose meter ([employer] 07/18/20 12/20/24 History Ultra2 Meter kit) glucagon HCl 1 mg solution for 1 mg IM [id number] for severe 07/18/20 12/20/24 History injection (Glucagon (HCl) hypoglycemia Emergency Kit) albuterol sulfate 90 mcg/actuation 2 puff inhalation Q4H PRN 06/07/21 12/20/24 History aerosol inhaler (Ventolin HFA) aspirin 81 mg tablet,delayed 81 mg PO DAILY 06/07/21 12/20/24 History release clopidogrel 75 mg tablet 75 mg PO DAILY 06/07/21 12/20/24 History glucagon 1 mg solution for 1 mg subcut Q20M PRN 06/07/21 12/20/24 History injection (Glucagon Emergency Kit) isosorbide mononitrate 60 mg 60 mg PO DAILY 06/07/21 12/20/24 History tablet,extended release 24 hr metoprolol succinate 100 mg 100 mg PO BID 06/07/21 12/20/24 History tablet,extended release 24 hr ranolazine 500 mg tablet,extended 500 mg PO BID 06/07/21 12/20/24 History release,12 hr blood-glucose sensor (Dexcom G6 08/30/24 12/20/24 History Sensor device) insulin aspart U-100 100 unit/mL See Rx Instructions continuous 08/30/24 12/20/24 History subcutaneous solution (Novolog subcutaneous infusion .COMPLEX U-100 Insulin aspart) pantoprazole 40 mg tablet,delayed 40 mg PO BID 08/30/24 12/20/24 History release amlodipine 5 mg tablet 5 mg PO DAILY 10/26/24 12/20/24 History atorvastatin 40 mg tablet 40 mg PO DAILY 10/26/24 12/20/24 History budesonide-formoterol HFA 160 2 puff inhalation BID 10/26/24 12/20/24 History mcg-4.5 mcg/actuation aerosol inhaler (Symbicort) duloxetine 30 mg capsule,delayed 60 mg PO BID 10/26/24 12/20/24 History release (Cymbalta) insulin pump cart,auto,BT,G6/7 10/26/24 12/20/24 History (Omnipod 5 G6-G7 Pods (Gen 5) subcutaneous cartridge) tamsulosin 0.4 mg capsule 0.4 mg PO QHS 10/26/24 12/20/24 History tiotropium bromide 2.5 2 inh inhalation DAILY 10/26/24 12/20/24 History mcg/actuation mist for inhalation (Spiriva Respimat) Lactobacillus acidophilus 250 1,000 mmu cells PO DAILY 11/11/24 12/20/24 History million cell capsule (Probiotic Acidophilus) cholecalciferol (vitamin D3) 25 5,000 unit PO DAILY 11/11/24 12/20/24 History mcg (1,000 unit) tablet (Vitamin D3) docusate sodium 100 mg capsule 100 mg PO BID PRN 11/11/24 12/20/24 History (Colace) insulin glargine-yfgn 100 unit/mL 24 unit subcut QPM 11/11/24 12/20/24 History (3 mL) subcutaneous pen (Semglee (insulin glargine-yfgn) Pen) nitroglycerin 0.4 mg sublingual 0.4 mg sublingual Q5M PRN 11/11/24 12/20/24 History tablet oxycodone-acetaminophen 10 mg-325 1 tab PO BID PRN 11/11/24 12/20/24 History mg tablet torsemide 20 mg tablet 20 mg PO BID 11/11/24 12/20/24 History cefadroxil 500 mg capsule 500 mg PO BID 12/20/24 12/20/24 History losartan 25 mg tablet 12.5 mg PO BID 12/20/24 12/20/24 History sodium bicarbonate 650 mg tablet 1,300 mg PO BID 12/20/24 12/20/24 History spironolactone 25 mg tablet 12.5 mg PO BID 12/20/24 12/20/24 History Exam Narrative Exam Narrative: General: Patient appears older than stated age, moderate to morbid obesity, alert and oriented x 3 and very talkative. He is in no acute distress. HEENT: Normocephalic, eyes with pupils equal and reactive light symmetric, extraocular movement intact and sclera anicteric. Oropharynx slightly dry with patient being edentulous. Neck: Supple without JVD. Back: Stooped posture without CVA tenderness. Lungs: Coarse crackles diffusely without focalizing, occasional rhonchi with cough and scant expiratory wheeze with cough only. Fair aeration with no focalizing rales. Bronchovesicular breath sounds diffusely. Heart: Regular rate and rhythm with distant heart sounds. No murmur or gallop appreciated. Abdomen: Obese contour, soft nontender to palpation with no palpable hepatosplenomegaly. Bowel sounds positive in all quadrants. Genitalia/rectal: Exam deferred. Extremities: Left BKA stump normal without skin breakdown, right ankle with Delfin wrap and wound VAC over the lateral aspect of ankle status postsurgery with poorly healing incision site but no pitting edema. Fair capillary refill. No clubbing or cyanosis. Skin: Pale, warm and dry. Right ankle ulcer with wound VAC and dry dressing above. Neuro: Cranial nerves II through XII grossly intact, no focalized motor deficits or tremor. Psych: Slightly pressured speech and anxious affect, normal mood, remote and recent memory intact. Results Imaging Imaging Studies: EXAM: XR CHEST 2V PA LATERAL Date of exam: 12/20/2024 CLINICAL HISTORY: Cough, wheezing TECHNIQUE: 2D digital imaging was performed. Two views. COMPARISON: CR CHEST 2 VIEWS PA,LAT from 12/01/2009 CR XR PORTABLE CHEST AP from 10/26/2024 CR XR CHEST 2V PA LATERAL from 12/08/2024 FINDINGS: HEART: Enlarged, unchanged. Aorta: Not dilated. PULMONARY VASCULATURE: Normal. MEDIASTINUM: Unremarkable. LUNGS: Streaky densities are seen at the right lung base. The densities have improved since the prior exam. Circumscribed nodule again noted in the right upper lobe, unchanged since 16/05. PLEURAL SPACE: Small right pleural effusion with significant improvement from prior. No pneumothorax. BONE:Old right rib fracture. SOFT TISSUES: Unremarkable. IMPRESSION: Some improvement in right pleural effusion and right basilar densities with persistent small right right pleural effusion and right basilar streaky densitie Labs 12/21/24 05:55 12/21/24 05:55 Labs: Laboratory Results - last 24 hr 12/20/24 12/20/24 12/20/24 16:00 16:21 16:35 WBC 18.55 H RBC 4.26 L Hgb 10.9 L Hct 34.2 L MCV 80 MCH 25.6 L MCHC 31.9 L RDW 18.1 H Plt Count 222 MPV 10.8 Immature Gran % 1.9 Neutrophils % 76.5 Lymphocytes % 10.6 Monocytes % 7.4 Eosinophils % 3.3 Basophils % 0.3 Nucleated RBC % 0.0 Absolute Neutrophils 14.19 H Absolute Lymphocytes 1.97 Absolute Monocytes 1.37 H Absolute Eosinophils 0.61 Absolute Basophils 0.06 Sodium Cancelled Cancelled 134 L Potassium Cancelled Cancelled 5.1 Chloride Cancelled Cancelled 101 Carbon Dioxide Cancelled Cancelled 30.4 Anion Gap Cancelled Cancelled 2.6 L BUN Cancelled Cancelled 66 H Creatinine Cancelled Cancelled 2.5 H Est GFR (CKD-EPI 2020) Cancelled Cancelled 28.34 Glucose Cancelled Cancelled 395 H Calcium Cancelled Cancelled 8.7 Magnesium Cancelled Cancelled 1.6 L Total Bilirubin Cancelled Cancelled 0.6 AST Cancelled Cancelled 12 L ALT Cancelled Cancelled 13 L Alkaline Phosphatase Cancelled Cancelled 155 H Troponin I Cancelled Cancelled 20 NT-Pro-B Natriuret Pep Cancelled Cancelled 5597 H Total Protein Cancelled Cancelled 6.2 L Albumin Cancelled Cancelled 2.6 L 12/20/24 12/20/24 17:35 18:53 WBC RBC Hgb Hct MCV MCH MCHC RDW Plt Count MPV Immature Gran % Neutrophils % Lymphocytes % Monocytes % Eosinophils % Basophils % Nucleated RBC % Absolute Neutrophils Absolute Lymphocytes Absolute Monocytes Absolute Eosinophils Absolute Basophils Sodium Potassium Chloride Carbon Dioxide Anion Gap BUN Creatinine Est GFR (CKD-EPI 2020) Glucose Calcium Magnesium Total Bilirubin AST ALT Alkaline Phosphatase Troponin I 20 Cancelled NT-Pro-B Natriuret Pep Total Protein Albumin Last Vital Signs Pulse 72 12/20/24 20:43 Resp 18 12/20/24 20:40 BP 119/61 12/20/24 20:43 Pulse Ox 92 12/20/24 20:40 Time Spent Time spent with Patient: >75 minutes Time was spent: preparing to see the patient(eg.review tests), obtaining and/or reviewing separately otained hiistory, ordering medications,tests, procedures, indepentently interpreting results, counseling the patient and care coordination
--- NOTE | 2024-12-20 21:54 | W.PC.ACHO ---
Registration Status: Primary Language: Preferred Language: ED Information & Data Chief Complaint Dizzy/Sync 12/20/24 15:55 Triage Note Pt has nurses come into 12/20/24 15:47 his home for wound care- they noted multiple episodes of hypotension with reported dizziness and increased SOB- pt reports slight dizziness at this time Medical / Surgical History (Last Reviewed 11/12/24 @ 00:57 by Ken Neely) Retinal disease, left Uses continuous positive airway pressure (CPAP) ventilation at home Hypotension Dehydration Below-knee amputation of left lower extremity Peripheral neuropathy Cervicalgia Headache, post-traumatic COVID-19 Phantom limb pain Tobacco use Chronic kidney disease, stage III (moderate) Inferior [place] Hx of pancreatitis Exposure to COVID-19 virus Dissection of artery of upper extremity CAD (coronary artery disease) Diabetes mellitus GERD (gastroesophageal reflux disease) HTN (hypertension) Hypercholesterolemia DARIO (obstructive sleep apnea) Obesities, morbid Migraine Neuropathy Diabetic foot ulcer Poorly controlled diabetes mellitus Chest pain (Last Reviewed 11/12/24 @ 00:57 by Ken Neely) Hx of cardiac catheterization Status post below knee amputation of left lower extremity History of lung biopsy History of heart artery stent S/P foot surgery Most Recent Vital Signs Pulse 74 12/20/24 21:46 Pulse 74 12/20/24 21:46 Respiratory Rate 17 12/20/24 21:46 Respiratory Effort Normal 12/20/24 18:40 Respiratory Depth Normal 12/20/24 18:40 Respiratory Pattern Normal 12/20/24 18:40 Blood Pressure 90/34 L 12/20/24 21:46 Blood Pressure Mean 52 12/20/24 21:46 Blood Pressure Position Sitting 12/20/24 15:47 Pulse Oximetry 96 12/20/24 21:46 Oxygen Delivery Method Nasal Cannula 12/20/24 15:47 Oxygen Flow Rate 2 12/20/24 15:47 Pain Level 0 12/20/24 15:47 Allergies Benzodiazepines Allergy (Mild, Verified 12/20/24 15:54) Unknown hyoscyamine Allergy (Mild, Verified 12/20/24 15:54) Unknown Penicillins Allergy (Unknown, Unverified 12/20/24 15:54) tolerated Zosyn on admission 06/2016 pt. doesn't know. insulin glargine, human recombin. a (From Lantus) Adverse Reaction (Intermediate, Unverified 12/20/24 15:54) Diarrhea liraglutide (From Victoza) Adverse Reaction (Intermediate, Unverified 12/20/24 15:54) Diarrhea lorazepam Adverse Reaction (Intermediate, Unverified 12/20/24 15:54) Loopy metformin Adverse Reaction (Intermediate, Unverified 12/20/24 15:54) Diarrhea methadone Adverse Reaction (Intermediate, Unverified 12/20/24 15:54) Loopy pregabalin (From Lyrica) Adverse Reaction (Intermediate, Verified 12/20/24 15:54) Diarrhea gabapentin Adverse Reaction (Mild, Unverified 12/20/24 15:54) loopy morphine Adverse Reaction (Unknown, Unverified 12/20/24 15:54) Flushing when given too fast Precautions Isolation Standard precaution 12/20/24 15:53 IV IV Catheter Type [Left Saline Lock Antecubital] IV Catheter Gauge [Left 20 Antecubital] Diagnostics 12/20/24 12/20/24 12/20/24 Range/Units 21:13 18:53 17:35 WBC (4.4-10.8) 10^3/uL RBC (4.36-5.78) 10^6/uL Hgb (13.5-17.5) g/dL Hct (40.0-50.0) % MCV (80-95) fL MCH (27.0-33.0) pg MCHC (32.0-36.0) % RDW (11.8-14.1) % Plt Count (130-400) 10^3/uL MPV (8.0-11.0) fL Immature Gran % % Neutrophils % % Lymphocytes % % Monocytes % % Eosinophils % % Basophils % % Nucleated RBC % (0.0-0.3) % Absolute Neutrophils (1.2-6.7) 10^3/uL Absolute Lymphocytes (1.2-3.4) 10^3/uL Absolute Monocytes (0.1-0.8) 10^3/uL Absolute Eosinophils (0.0-0.7) 10^3/uL Absolute Basophils (0.0-0.2) 10^3/uL Sodium Potassium Chloride Carbon Dioxide Anion Gap BUN Creatinine Est GFR (CKD-EPI 2020) Glucose Calcium Magnesium Total Bilirubin AST ALT Alkaline Phosphatase Troponin I Cancelled 20 NT-Pro-B Natriuret Pep Total Protein Albumin COVID-19 Source Pending SARS-CoV-2 (PCR) Pending Influenza Type A (PCR) Pending Influenza Type B (PCR) Pending RSV (PCR) Pending 12/20/24 12/20/24 12/20/24 Range/Units 16:35 16:21 16:00 WBC 18.55 H (4.4-10.8) 10^3/uL RBC 4.26 L (4.36-5.78) 10^6/uL Hgb 10.9 L (13.5-17.5) g/dL Hct 34.2 L (40.0-50.0) % MCV 80 (80-95) fL MCH 25.6 L (27.0-33.0) pg MCHC 31.9 L (32.0-36.0) % RDW 18.1 H (11.8-14.1) % Plt Count 222 (130-400) 10^3/uL MPV 10.8 (8.0-11.0) fL Immature Gran % 1.9 % Neutrophils % 76.5 % Lymphocytes % 10.6 % Monocytes % 7.4 % Eosinophils % 3.3 % Basophils % 0.3 % Nucleated RBC % 0.0 (0.0-0.3) % Absolute Neutrophils 14.19 H (1.2-6.7) 10^3/uL Absolute Lymphocytes 1.97 (1.2-3.4) 10^3/uL Absolute Monocytes 1.37 H (0.1-0.8) 10^3/uL Absolute Eosinophils 0.61 (0.0-0.7) 10^3/uL Absolute Basophils 0.06 (0.0-0.2) 10^3/uL Sodium 134 L Cancelled Cancelled Potassium 5.1 Cancelled Cancelled Chloride 101 Cancelled Cancelled Carbon Dioxide 30.4 Cancelled Cancelled Anion Gap 2.6 L Cancelled Cancelled BUN 66 H Cancelled Cancelled Creatinine 2.5 H Cancelled Cancelled Est GFR (CKD-EPI 2020) 28.34 Cancelled Cancelled Glucose 395 H Cancelled Cancelled Calcium 8.7 Cancelled Cancelled Magnesium 1.6 L Cancelled Cancelled Total Bilirubin 0.6 Cancelled Cancelled AST 12 L Cancelled Cancelled ALT 13 L Cancelled Cancelled Alkaline Phosphatase 155 H Cancelled Cancelled Troponin I 20 Cancelled Cancelled NT-Pro-B Natriuret Pep 5597 H Cancelled Cancelled Total Protein 6.2 L Cancelled Cancelled Albumin 2.6 L Cancelled Cancelled COVID-19 Source SARS-CoV-2 (PCR) Influenza Type A (PCR) Influenza Type B (PCR) RSV (PCR) Intake and Output - 24 Hour Total 12/20/24 15:38 thru 12/20/24 20:41 Intake Total 1010 Balance 1010 Weight 115.2 kg Intake: IV 1010 Falls Risk Assessment History of Falls Previous History 12/20/24 18:40 Contributing Factors Unstable 12/20/24 18:40 Ambulatory Aids Uses ambulatory device + 12/20/24 18:40 Tubes/Lines With any additional score 12/20/24 18:40 Gait Evaluation W/any additional score 12/20/24 18:40 Cognition No cognitive impairment 12/20/24 18:40 Fall Total Score 88 12/20/24 18:40 Level of Risk Maximum Risk 12/20/24 18:40 Problems (Last Reviewed 11/12/24 @ 00:57 by Ken Neely) Hypomagnesemia (Acute) Hypotension due to drugs (Acute) COPD (chronic obstructive pulmonary disease) (Chronic) Hyperlipidemia (Chronic) CHF (congestive heart failure) (Chronic) PVD (peripheral vascular disease) (Chronic) v v v v v v v v v Sending and/or Receiving Nurses: Please use comment section below to note any information pertinent to the patient hand-off not included above. Information / Comments: Report taken from ED RN Bradley, patient came in with low B/P at home, orthostatic. latest B/P is 90/34. Patienthas left leg amputee, has g20 on Lt. Ac, Patient able to stand on his own, no symptom of dizziness, alert and oriented x 4. All questions answered promptly. Report received from:
[2024-12-20 22:31] LABS: TSH (W/Ref FT4) 0.14 uIU/mL (0.36-3.74)
[2024-12-20 22:42] LABS: COVID-19 PCR Negative (Negative); Influenza A PCR Negative (Negative); Influenza B PCR Negative (Negative); RSV PCR Negative (Negative)
[2024-12-20 22:43] LABS: Source Nasopharynx
[2024-12-20 22:50] LABS: FREE T4 1.31 ng/dL (0.76-1.46)
[2024-12-20 22:59] LABS: Glucose 450 mg/dL (74-106)
[2024-12-20] MEDS: Metoprolol 12.5 MG TAB PO (23:12)
[2024-12-20] MEDS: Tamsulosin 0.4 MG CAPCR PO (23:13)
[2024-12-20] MEDS: Hydrocortisone SOD SUC. 100 MG VIAL IVP (23:14)
[2024-12-20] MEDS: MAGNESIUM SULFATE 2 GM/50 ML BAG IV_INF (23:18)
[2024-12-20] MEDS: Normal Saline Flush 10 ML SYR IVP (23:18)
[2024-12-20] MEDS: Enoxaparin 40 MG/0.4 ML SYR SC (23:20)
[2024-12-20 23:32] LABS: Bilirubin Negative (Negative); Blood Negative (Negative); Clarity Clear (Clear); Glucose >=1000 mg/dL (Negative); Ketones Negative (Negative); Leukocyte Esterase Trace (Negative); Nitrite Negative (Negative); Urobilinogen 0.2 mg/dL (Up to 0.2)
[2024-12-20] MEDS: Insulin Aspart 300 UNITS/3 ML PEN SC (23:37)
[2024-12-20 23:48] LABS: Bacteria Negative HPF (Negative); C & S Indicated? Yes; Casts Negative LPF (Negative); Crystals Negative HPF (Negative); Epithelial Cells Negative HPF (Negative); Mucus Trace (Negative); RBC Negative HPF (0-2)
[2024-12-21] VITALS (13 sets, daily range): BP systolic 110–150; BP diastolic 55–80; PULSE 74–97; RESP 5–20; TEMP 36.1–37; O2SAT 93–98
[2024-12-21] MEDS: oxyCODONE 10 MG TAB PO ×2 (00:33→21:40)
[2024-12-21] MEDS: Albuterol HFA 8 GM 60 PUFF INH IH (04:16)
[2024-12-21] MEDS: Metoprolol 12.5 MG TAB PO ×3 (05:30→23:24)
[2024-12-21 06:22] LABS: HCT 33.9 % (40.0-50.0); HGB 10.7 g/dL (13.5-17.5); MCH 25.2 pg (27.0-33.0); MCHC 31.6 % (32.0-36.0); MCV 80 fL (80-95); MPV 11.1 fL (8.0-11.0); Platelet Count 203 10^3/uL (130-400); RBC 4.25 10^6/uL (4.36-5.78); RDW 17.9 % (11.8-14.1); RDW-SD 51.8 fL; WBC 15.04 10^3/uL (4.4-10.8)
[2024-12-21 06:32] LABS: ALT 12 U/L (16-63); AST 12 U/L (15-37); Albumin 2.7 g/dL (3.4-5.0); Alkaline Phosphatase 152 U/L (46-116); Anion Gap 5.8 mmol/L (3-11); BUN 57 mg/dL (7-18); Bilirubin, Total 0.5 mg/dL (0.2-1.0); CO2 26.2 mmol/L (21.0-32.0); CREATININE 2.1 mg/dL (0.70-1.30); Calcium 8.8 mg/dL (8.5-10.1); Chloride 99 mmol/L (98-107); Estimated GFR 34.93 (mL/min/1.73m2); Glucose 342 mg/dL (74-106); Magnesium 1.9 mg/dL (1.8-2.4); Potassium 4.7 mmol/L (3.5-5.1); Sodium 131 mmol/L (136-145); Total Protein 6.4 g/dL (6.4-8.2)
[2024-12-21] MEDS: Insulin Aspart 300 UNITS/3 ML PEN SC ×4 (08:11→21:31)
[2024-12-21] MEDS: Ranolazine 500 MG TABCR PO ×2 (08:12→20:24)
[2024-12-21] MEDS: Hydrocortisone SOD SUC. 100 MG VIAL IVP (08:12)
[2024-12-21] MEDS: Cholecalciferol (Vitamin D3) 1,000 UNIT TAB 5000 UNITS PO (08:13)
[2024-12-21] MEDS: amLODIPine 5 MG TAB PO (08:13)
[2024-12-21] MEDS: Lactobacillus Acidophilus CAP 1 CAP PO (08:13)
[2024-12-21] MEDS: Aspirin E.C. 81 MG TABEC PO (08:13)
[2024-12-21] MEDS: Isosorbide Mononitrate 60 MG TABCR PO (08:13)
[2024-12-21] MEDS: Sodium Bicarbonate 650 MG TAB 1300 MG PO ×2 (08:13→20:24)
[2024-12-21] MEDS: Atorvastatin 40 MG TAB PO (08:14)
[2024-12-21] MEDS: DULoxetine 30 MG CAP 60 MG PO ×2 (08:14→20:24)
[2024-12-21] MEDS: Clopidogrel 75 MG TAB PO (08:14)
[2024-12-21] MEDS: Pantoprazole 40 MG TABCR PO ×2 (08:14→20:50)
[2024-12-21] MEDS: Tiotropium Bromide-Respimat 10 PUFF INH 2 PUFF IH (08:15)
[2024-12-21] MEDS: Normal Saline Flush 10 ML SYR IVP ×2 (08:16→20:23)
[2024-12-21] MEDS: Budesonide/Formoterol 160/4.5 6 GM 60 PUFF INH IH ×2 (11:10→20:37)
[2024-12-21] MEDS: Albuterol/Ipratropium 3 ML UPD VIAL UPD ×2 (11:11→16:16)
--- NOTE | 2024-12-21 11:57 | PDOC.CMIN ---
Date of service: 12/21/24 Time of Service: 11:58 Care Management Initial Assmt Initial Assessment Reason for Hospitalization: Hypotension Functional Status/Living Situation Patient Presentation: Yo was awake and lying in bed with the HOB elevated when CM met with him; he is pleasant and easy to engage in conversation. Yo lives in a mobile home in [place] with his Helio. He has one adult son who lives in [place] with whom he has a close relationship. 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 He has [facility] RN/PT services. He has a wound vac and a nurse goes out to see him 3X week for wound care. He is working with the [employer]; currently his is his primary caregiver and the plan is for her to become his paid caregiver so she can decrease her work hours down to 20 hrs per week. Town of Residence: [place] Resides with: Spouse ( Sunita) Significant Other/Family: [facility] Employment Status: Disabled Instrumental Activities of Daily Living (ADLs): Requires support Medications Medication Management: No Issues/Barriers identified Physical Functioning/Mobility Assistive Device: Wheelchair Prosthetic Leg Walker Has a ramp Has a wound vac Advance Directives Advance Directives: Do you have an Advance Directive: Y 04/13/21 11:18 AD On File at [facility]: Y 12/20/24 20:36 Date Asked 12/15/24 12/15/24 15:41 AD Date Reviewed 12/20/24 12/20/24 20:36 COLST On File at [facility] COLST Date Scanned Code Status Resuscitation Status Full Code Portal Pt does not currently have a portal and education provided: Yes Insurance Coverage/Financial Issues Insurance: Medicare Part A & B - [id number] Care Team Visit Care Team Role Provider Type Jack Humphrey MD [facility] STAFF PHYSICIAN Kalli Gamble MD Primary Care Provider [facility] STAFF PHYSICIAN Sienna Paul MD Emergency Provider [facility] STAFF PHYSICIAN Ken Neely Admit Provider NON-[facility] STAFF PHYSICIAN Attending Provider Discharge Potential Discharge Needs: Consult Consult Services Needed: Cardiology and PCP F/U Appt Anticipated Barriers to Discharge: None Identified Patient/Family Education Needs: Review discharge instructions, discuss Ask Me Three Transportation: RCT RCT Transportation: Wheel chair van Plan: Yo is planning to discharge home with resumption of [facility] RN/PT services and community supports when medically ready for discharge. RCT W/C van will be needed, will bring his portable O2 concentrator here prior to discharge, she is not able to lift his wheelchair, therefor he will borrow one from [facility]. Yo will follow up with his PCP and discharge plan of care as directed. CM will follow. Social Determinants of Health Screening Social Determinants of health last assessed in clinic: 12/21/24 Will the Patient Participate in the Screening?: Yes Do you worry about having a steady place to live?: yes What is your living situation today?: I have housing today, but am worried about losing it Problems where you live: no known problems In the past 12 months, have you had to go without electric, gas, oil or water in your home?: no 1. Within the past 12 months, we worried whether our food would run out before we got money to buy more.: Never true 2. Within the past 12 months, the food we bought just didn't last and we didn't have money to get more.: Never true Has lack of transportation kept you from medical appointments or from doing things needed for daily living?: yes Has anyone in your life made you feel unsafe or unsupported?: no How hard is it for you to pay for the very basics like food, housing, medical care, and heating? Would you say it is:: Somewhat hard Do you want help finding or keeping work or a job?: Yes, help keeping work If for any reason you need help with day-to-day activities such as bathing, preparing meals, shopping, managing finances, etc., do you get the help you need?: I could use a little more help How often do you feel lonely or isolated from those around you?: Always Do you speak a language other than Ukrainian at home?: No Does the patient want assistance with any of the above?: Yes Comments: his works, patient needs all help that he could get like, ADL,transportation, housekeeping and somebody who will stay when will work. Health Related Social Needs Health related social needs: housing instability, housed, with risk of homelessness (Z59.811), transportation insecurity (Z59.82), problems related to housing/economic circumstances (Z59.89), problems finding work (Z56.9), problems with daily activities (Z73.9) and feeling lonely/isolated (Z60.8) Health related social needs details: patient stated of been approved by state to pay somebody to stay with him. PFSH All Active Problems Acute hypotension (Acute) Hypomagnesemia (Acute) Hypotension due to drugs (Acute) Shortness of breath (Acute) 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 (Acute) COPD (chronic obstructive pulmonary disease) (Chronic) Anemia (Chronic) Hyperthyroidism (Chronic) Elevated liver enzymes (Acute) Hx of left BKA (Acute) Hyperlipidemia (Chronic) Hyperkalemia (Acute) Surgical wound infection (Acute) CHF (congestive heart failure) (Chronic) Severe sepsis (Acute) PVD (peripheral vascular disease) (Chronic) Diabetes (Chronic) Diabetic foot ulcer (Chronic) Cellulitis of right ankle (Acute) No-show for appointment (Acute) Medical History Retinal disease, left Uses continuous positive airway pressure (CPAP) ventilation at home Hypotension Dehydration Below-knee amputation of left lower extremity Peripheral neuropathy Cervicalgia Headache, post-traumatic COVID-19 Phantom limb pain Tobacco use Chronic kidney disease, stage III (moderate) Inferior [place] 2007 Hx of pancreatitis Exposure to COVID-19 virus 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 CAD (coronary artery disease) multiple stents 2006 Diabetes mellitus GERD (gastroesophageal reflux disease) HTN (hypertension) Hypercholesterolemia DARIO (obstructive sleep apnea) Obesities, morbid Migraine Neuropathy Diabetic foot ulcer Poorly controlled diabetes mellitus Chest pain Surgical History Hx of cardiac catheterization Status post below knee amputation of left lower extremity History of lung biopsy History of heart artery stent S/P foot surgery Social History Smoking/Tobacco Use Status: Former Tobacco Use Quit Date: 05/30/24 Smoking risk assessment performed?: Yes Alcohol Intake: never Drug use: Never Substance use type: does not use Housing: house Do you feel safe at home: Yes Do you feel safe in your relationship?: Yes
--- NOTE | 2024-12-21 15:08 | W.PM.PROGNOT ---
Date of Service Date of service: 12/21/24 Time of Service: 15:08 Assessment and Plan Assessment and plan (1) Hypotension due to drugs: Start date: 12/20/24 Status: Acute Assessment and plan: I agree presentation related to adrenal insufficiency with frequent prednisone with recent cessation. He noted this happening in the past when finished with prednisone Increaed diuresis including spironolacton also contributing, holding this. He would like to resume his loop at a lower dose 20mg/10mg, which is reasonable. BP stabilized and symptoms much improved on stress dose steroids and holding diuretics. Taper steroid, to oral prednisone in the morning, will need prolonged taper and possibly maintenance dosing. (2) Hypomagnesemia: Start date: 12/20/24 Status: Acute Assessment and plan: Repleted IV, normalized (3) CHF (congestive heart failure): Status: Chronic Assessment and plan: Resumed torsemide as above. Echocardiogram done 10/26/14 confirms LVEF 25%. No need to repeat. (4) COPD (chronic obstructive pulmonary disease): Status: Chronic Assessment and plan: Patient to stop He does have chronic home O2 at 2 L/min per nasal cannula. O2 at baseline, continue outpatient inhalers, nebs. (5) HTN (hypertension): Assessment and plan: Resume slowly as BP increasing. Try off amlodipine so we can maximize his GDMT for HFrEF (6) Diabetes mellitus: Assessment and plan: Glucometer measurements before meals and bedtime with sliding scale coverage. Continue oral medical therapy the same. Sugars have been high on steroids, resume glargine and continue sliding scale. (7) PVD (peripheral vascular disease): Status: Chronic Assessment and plan: On ASA/clopidogrel and statin. Has wound vac, no acute infection. (8) CAD (coronary artery disease): Assessment and plan: No evidence of exacerbation with patient to continue outpatient medical therapy clopidogrel/statin. (9) Phantom limb pain: Assessment and plan: Continue oxycodone for pain management as needed with patient stable on this treatment and not at risk for misuse of his medication. VPMS was consistent with his treatment on admission. Subjective Subjective Patient reports: feels better and tolerating a regular diet; denies diarrhea, nausea, vomiting or fever Interval history since last seen: Feeling a little better. Still a little lightheaded with standing, but better. No chest pain. Breathing isn't bad, usually on 2 liters at home. Exam Narrative Exam Narrative: General: Alert and oriented x 3. He is in no acute distress. Lungs: Coarse breath sounds and expiratory wheezing diffusely without focalizing, no rales, normal effort Heart: Regular rate and rhythm with distant heart sounds. No murmur or gallop appreciated. Abdomen: soft, NT Extremities: Left BKA stump normal without skin breakdown, right ankle with Delfin wrap and wound VAC. Trace edema. No clubbing or cyanosis. Skin: Pale, warm and dry. Right ankle ulcer with wound VAC and dry dressing above. Objective Last Vital Signs Temp 36.7 C 12/21/24 14:08 Pulse 83 12/21/24 14:08 Resp 16 12/21/24 11:36 BP 126/66 12/21/24 14:08 Pulse Ox 98 12/21/24 14:08 Laboratory Results - last 24 hr 12/20/24 12/20/24 12/20/24 16:00 16:21 16:35 WBC 18.55 H RBC 4.26 L Hgb 10.9 L Hct 34.2 L MCV 80 MCH 25.6 L MCHC 31.9 L RDW 18.1 H Plt Count 222 MPV 10.8 Immature Gran % 1.9 Neutrophils % 76.5 Lymphocytes % 10.6 Monocytes % 7.4 Eosinophils % 3.3 Basophils % 0.3 Nucleated RBC % 0.0 Absolute Neutrophils 14.19 H Absolute Lymphocytes 1.97 Absolute Monocytes 1.37 H Absolute Eosinophils 0.61 Absolute Basophils 0.06 Sodium Cancelled Cancelled 134 L Potassium Cancelled Cancelled 5.1 Chloride Cancelled Cancelled 101 Carbon Dioxide Cancelled Cancelled 30.4 Anion Gap Cancelled Cancelled 2.6 L BUN Cancelled Cancelled 66 H Creatinine Cancelled Cancelled 2.5 H Est GFR (CKD-EPI 2020) Cancelled Cancelled 28.34 Glucose Cancelled Cancelled 395 H Calcium Cancelled Cancelled 8.7 Magnesium Cancelled Cancelled 1.6 L Total Bilirubin Cancelled Cancelled 0.6 AST Cancelled Cancelled 12 L ALT Cancelled Cancelled 13 L Alkaline Phosphatase Cancelled Cancelled 155 H Troponin I Cancelled Cancelled 20 NT-Pro-B Natriuret Pep Cancelled Cancelled 5597 H Total Protein Cancelled Cancelled 6.2 L Albumin Cancelled Cancelled 2.6 L TSH 0.14 L Free T4 1.31 Urine Color Urine Clarity Urine pH Ur Specific [place] Urine Protein Urine Ketones Urine Blood Urine Nitrite Urine Bilirubin Urine Urobilinogen Ur Leukocyte Esterase Urine RBC Urine WBC Ur Epithelial Cells Urine Crystals Urine Bacteria Urine Casts Urine Mucus Ur Culture Indicated? Urine Glucose COVID-19 Source SARS-CoV-2 (PCR) Influenza Type A (PCR) Influenza Type B (PCR) RSV (PCR) 12/20/24 12/20/24 12/20/24 17:35 18:53 22:00 WBC RBC Hgb Hct MCV MCH MCHC RDW Plt Count MPV Immature Gran % Neutrophils % Lymphocytes % Monocytes % Eosinophils % Basophils % Nucleated RBC % Absolute Neutrophils Absolute Lymphocytes Absolute Monocytes Absolute Eosinophils Absolute Basophils Sodium Potassium Chloride Carbon Dioxide Anion Gap BUN Creatinine Est GFR (CKD-EPI 2020) Glucose Calcium Magnesium Total Bilirubin AST ALT Alkaline Phosphatase Troponin I 20 Cancelled NT-Pro-B Natriuret Pep Total Protein Albumin TSH Free T4 Urine Color Urine Clarity Urine pH Ur Specific [place] Urine Protein Urine Ketones Urine Blood Urine Nitrite Urine Bilirubin Urine Urobilinogen Ur Leukocyte Esterase Urine RBC Urine WBC Ur Epithelial Cells Urine Crystals Urine Bacteria Urine Casts Urine Mucus Ur Culture Indicated? Urine Glucose COVID-19 Source Nasopharynx SARS-CoV-2 (PCR) Negative Influenza Type A (PCR) Negative Influenza Type B (PCR) Negative RSV (PCR) Negative 12/20/24 12/20/24 12/21/24 22:40 23:09 05:55 WBC 15.04 H RBC 4.25 L Hgb 10.7 L Hct 33.9 L MCV 80 MCH 25.2 L MCHC 31.6 L RDW 17.9 H Plt Count 203 MPV 11.1 H Immature Gran % Neutrophils % Lymphocytes % Monocytes % Eosinophils % Basophils % Nucleated RBC % Absolute Neutrophils Absolute Lymphocytes Absolute Monocytes Absolute Eosinophils Absolute Basophils Sodium 131 L Potassium 4.7 Chloride 99 Carbon Dioxide 26.2 Anion Gap 5.8 BUN 57 H Creatinine 2.1 H Est GFR (CKD-EPI 2020) 34.93 Glucose 450 H 342 H Calcium 8.8 Magnesium 1.9 Total Bilirubin 0.5 AST 12 L ALT 12 L Alkaline Phosphatase 152 H Troponin I NT-Pro-B Natriuret Pep Total Protein 6.4 Albumin 2.7 L TSH Free T4 Urine Color Yellow Urine Clarity Clear Urine pH 6.0 Ur Specific [place] 1.010 Urine Protein 100 H Urine Ketones Negative Urine Blood Negative Urine Nitrite Negative Urine Bilirubin Negative Urine Urobilinogen 0.2 Ur Leukocyte Esterase Trace H Urine RBC Negative Urine WBC 10-20 H Ur Epithelial Cells Negative Urine Crystals Negative Urine Bacteria Negative Urine Casts Negative Urine Mucus Trace Ur Culture Indicated? Yes Urine Glucose >=1000 H COVID-19 Source SARS-CoV-2 (PCR) Influenza Type A (PCR) Influenza Type B (PCR) RSV (PCR) Time Spent with Patient Time Spent with Patient: 35-49 minutes Time was spent: preparing to see the patient(eg.review tests), obtaining and/or reviewing separately otained hiistory, ordering medications,tests, procedures, referring, communicating with other health ambulatory care coordinator, indepentently interpreting results, counseling the patient and care coordination
[2024-12-21] MEDS: Hydrocortisone SOD SUC. 100 MG VIAL 50 MG IVP ×2 (15:32→23:23)
[2024-12-21] MEDS: Torsemide 10 MG TAB PO (15:33)
--- NOTE | 2024-12-21 16:19 | CHAPLAIN ---
Ed was in bed when I visited. He said he's feeling better but will be staying the night to see how some meds affect him. He talked about different medications he's been taking and how he's affected when he starts them or stops them. He's hoping to be here long enough to figure out his medications so he won't have to come back. His home health nurse found him with a very low blood pressure and called EMS. Ed lives in [place] with his . She may be in to visit today if she's coming in town for errands. She also works. I explained my role to Ed and offered support.
[2024-12-21] MEDS: Normal Saline 1,000 ML 100 ML IV (20:23)
[2024-12-21] MEDS: Tamsulosin 0.4 MG CAPCR PO (20:25)
[2024-12-21] MEDS: Insulin Glargine 300 UNITS/3 ML PEN 24 UNITS SC (20:52)
[2024-12-21 20:54] LABS: Glucose 441 mg/dL (74-106)
[2024-12-21] MEDS: Enoxaparin 40 MG/0.4 ML SYR SC (23:23)
[2024-12-22] VITALS (13 sets, daily range): BP systolic 109–146; BP diastolic 66–79; PULSE 72–97; RESP 3–17; TEMP 36–36.6; O2SAT 90–97
[2024-12-22 06:26] LABS: HCT 30.7 % (40.0-50.0); HGB 9.9 g/dL (13.5-17.5); MCH 25.4 pg (27.0-33.0); MCHC 32.2 % (32.0-36.0); MCV 79 fL (80-95); MPV 11.7 fL (8.0-11.0); Platelet Count 208 10^3/uL (130-400); RBC 3.89 10^6/uL (4.36-5.78); RDW 17.8 % (11.8-14.1); RDW-SD 50.8 fL; WBC 18.41 10^3/uL (4.4-10.8)
[2024-12-22] MEDS: Metoprolol 12.5 MG TAB PO ×2 (06:35→11:56)
[2024-12-22] MEDS: Normal Saline 1,000 ML 100 ML IV ×2 (06:42→14:53)
[2024-12-22 06:45] LABS: ALT 13 U/L (16-63); AST 14 U/L (15-37); Albumin 2.6 g/dL (3.4-5.0); Alkaline Phosphatase 147 U/L (46-116); Anion Gap 9.1 mmol/L (3-11); BUN 47 mg/dL (7-18); Bilirubin, Total 0.5 mg/dL (0.2-1.0); CO2 25.9 mmol/L (21.0-32.0); CREATININE 1.8 mg/dL (0.70-1.30); Calcium 8.8 mg/dL (8.5-10.1); Chloride 100 mmol/L (98-107); Estimated GFR 42.03 (mL/min/1.73m2); Glucose 369 mg/dL (74-106); Potassium 3.9 mmol/L (3.5-5.1); Sodium 135 mmol/L (136-145); Total Protein 6.2 g/dL (6.4-8.2)
[2024-12-22] MEDS: Insulin Aspart 300 UNITS/3 ML PEN SC ×4 (08:10→21:12)
[2024-12-22] MEDS: Atorvastatin 40 MG TAB PO (09:47)
[2024-12-22] MEDS: DULoxetine 30 MG CAP 60 MG PO ×2 (09:48→21:08)
[2024-12-22] MEDS: oxyCODONE 10 MG TAB PO (09:49)
[2024-12-22] MEDS: Isosorbide Mononitrate 60 MG TABCR PO (09:50)
[2024-12-22] MEDS: Ranolazine 500 MG TABCR PO ×2 (09:51→21:08)
[2024-12-22] MEDS: Sodium Bicarbonate 650 MG TAB 1300 MG PO ×2 (09:51→21:08)
[2024-12-22] MEDS: Clopidogrel 75 MG TAB PO (09:52)
[2024-12-22] MEDS: Metoprolol CR 50 MG TABCR PO (09:53)
[2024-12-22] MEDS: Torsemide 20 MG TAB PO (09:53)
[2024-12-22] MEDS: Cholecalciferol (Vitamin D3) 1,000 UNIT TAB 5000 UNITS PO (09:54)
[2024-12-22] MEDS: predniSONE 20 MG TAB 40 MG PO (09:54)
[2024-12-22] MEDS: Aspirin E.C. 81 MG TABEC PO (09:54)
[2024-12-22] MEDS: Lactobacillus Acidophilus CAP 1 CAP PO (09:54)
[2024-12-22] MEDS: Ondansetron O.D.T. 4 MG TABEF PO (10:00)
[2024-12-22] MEDS: Budesonide/Formoterol 160/4.5 6 GM 60 PUFF INH IH ×2 (10:34→19:32)
[2024-12-22] MEDS: Albuterol/Ipratropium 3 ML UPD VIAL UPD ×2 (10:35→19:32)
[2024-12-22] MEDS: Tiotropium Bromide-Respimat 10 PUFF INH 2 PUFF IH (10:35)
--- NOTE | 2024-12-22 12:17 | CMPROGNOTE_ITS ---
Date of service: 12/22/24 Time of Service: 12:18 Care Management Progress Note Progress Note Text Progress Note Text: Yo was sitting in a recliner when CM met with him, he is wearing his prosthetic leg w/ a shoe and reports that he can walk a few steps, which he reports is progress. Per pt, he is not feeling well today; he c/o nausea, leg weakness and dizziness, RN is aware. PT consult is requested, he will need his other shoe from home to participate. Since his is planning to bring in his portable o2, CM also asked if she would bring in his shoe? Per pt, Lavinia' mother just had a stroke and she wont be able to bring him anything today, possi valerie tomorrow but he is waiting to hear back from her. He will also check to see if she will bring in the director of therapy services cord for his wound vac which he states is from [facility] (rather than [facility]). CM will follow. Needs from Home: Portable O2, 1 shoe and charging cord to his wound vac and wheelchair (if can find someone to help her get it in her car.) Discharge Potential Discharge Needs: PCP F/U Appt Anticipated Barriers to Discharge: None Identified Patient/Family Education Needs: Review discharge instructions, discuss Ask Me Three Transportation: RCT (Will need to borrow a w/c from [facility] RCT Transportation: Wheel chair van Plan: Yo is planning to discharge home with resumption of [facility] RN/PT services and community supports when medically ready for discharge. RCT W/C van will be needed, will bring his portable O2 concentrator here prior to discharge, she is not able to lift his wheelchair, therefor he will borrow one from [facility]. Yo will follow up with his PCP and discharge plan of care as directed. CM will follow. Social Determinants of Health Screening Social Determinants of health last assessed in clinic: 12/22/24 Will the Patient Participate in the Screening?: Yes Do you worry about having a steady place to live?: yes What is your living situation today?: I have housing today, but am worried about losing it Problems where you live: no known problems In the past 12 months, have you had to go without electric, gas, oil or water in your home?: no 1. Within the past 12 months, we worried whether our food would run out before we got money to buy more.: Never true 2. Within the past 12 months, the food we bought just didn't last and we didn't have money to get more.: Never true Has lack of transportation kept you from medical appointments or from doing things needed for daily living?: yes Has anyone in your life made you feel unsafe or unsupported?: no How hard is it for you to pay for the very basics like food, housing, medical care, and heating? Would you say it is:: Somewhat hard Do you want help finding or keeping work or a job?: Yes, help keeping work If for any reason you need help with day-to-day activities such as bathing, preparing meals, shopping, managing finances, etc., do you get the help you need?: I could use a little more help How often do you feel lonely or isolated from those around you?: Always Do you speak a language other than Belarusian at home?: No Does the patient want assistance with any of the above?: Yes Comments: his works, patient needs all help that he could get like, ADL,transportation, housekeeping and somebody who will stay when will work. Health Related Social Needs Health related social needs: housing instability, housed, with risk of homelessness (Z59.811), transportation insecurity (Z59.82), problems related to housing/economic circumstances (Z59.89), problems finding work (Z56.9), problems with daily activities (Z73.9) and feeling lonely/isolated (Z60.8) Health related social needs details: patient stated of been approved by state to pay somebody to stay with him.
--- NOTE | 2024-12-22 14:10 | PHA.REVIEW2 ---
Pharmacy Admission Review Admission Clinical Review Admission Pharmacy Review: Hypomagnesemia (Acute) Hypotension due to drugs (Acute) Benzodiazepines Allergy (Mild, Verified 12/20/24 15:54) Unknown hyoscyamine Allergy (Mild, Verified 12/20/24 15:54) Unknown Penicillins Allergy (Unknown, Unverified 12/20/24 15:54) tolerated Zosyn on admission 06/2016 insulin glargine, human recombin. a (From Lantus) Adverse Reaction (Intermediate, Unverified 12/20/24 15:54) Diarrhea liraglutide (From Victoza) Adverse Reaction (Intermediate, Unverified 12/20/24 15:54) Diarrhea lorazepam Adverse Reaction (Intermediate, Unverified 12/20/24 15:54) Loopy metformin Adverse Reaction (Intermediate, Unverified 12/20/24 15:54) Diarrhea methadone Adverse Reaction (Intermediate, Unverified 12/20/24 15:54) Loopy pregabalin (From Lyrica) Adverse Reaction (Intermediate, Verified 12/20/24 15:54) Diarrhea gabapentin Adverse Reaction (Mild, Unverified 12/20/24 15:54) loopy morphine Adverse Reaction (Unknown, Unverified 12/20/24 15:54) Flushing when given too fast Resuscitation Status Full Code Height 5 ft 11 in Weight 114.26 kg Pharmacy Admission Review Renal Dosing Renal Dosing: BUN 47 mg/dL (7-18) H 12/22/24 06:02 Creatinine 1.8 mg/dL (0.70-1.30) H 12/22/24 06:02 Medications needing adjustments: Reviewed (CrCl 54.7 mL/min, BUN decreased from 57 and SCr decreased from 2.1) List of meds needing interventions: Current medications are okay Anticoagulation Anticoagulation: Hgb 9.9 g/dL (13.5-17.5) L 12/22/24 06:02 Hct 30.7 % (40.0-50.0) L 12/22/24 06:02 Plt Count 208 10^3/uL (130-400) 12/22/24 06:02 Creatinine 1.8 mg/dL (0.70-1.30) H 12/22/24 06:02 DVT Prophylaxis: Reviewed (Hgb decreased from 10.7) Medications: Enoxaparin (40mg daily) Opiate Usage Evaluate Pain Scale/Pains Meds: Reviewed (oxycodone 10mg PO BID PRN - 20mg / 24 hrs) Scheduled Bowel Reg ordered if on Opiates?: No (PRN Miralax/docusate) Relevant Labs Relevant Labs: Sodium 135 mmol/L (136-145) L 12/22/24 06:02 Potassium 3.9 mmol/L (3.5-5.1) 12/22/24 06:02 Chloride 100 mmol/L (98-107) 12/22/24 06:02 Magnesium 2.0 mg/dL (1.8-2.4) 12/22/24 06:02 Electrolytes, C-Reactive P, ESR: Reviewed (Na increased from 131) DM Control DM Control: Glucose 369 mg/dL (74-106) H 12/22/24 06:02 Finger Stick Blood Glucose 231 1153 Finger Stick Blood Glucose 231 1144 Finger Stick Blood Glucose 231 1142 Finger Stick Blood Glucose 231 1142 Finger Stick Blood Glucose 327 0826 Finger Stick Blood Glucose 327 0810 Finger Stick Blood Glucose 327 0809 Finger Stick Blood Glucose 327 0809 DM Control: Reviewed Insulin Dosing, Diabetic Medication: Has orders for 6 units meal time, SS insulin at meal times and glargine 30 units qPM (increased today from 24 units) Cardiac Review Cardiac Review: Troponin I Cancelled 12/20/24 18:53 NT-Pro-B Natriuret Pep 5597 pg/mL (<300) H 12/20/24 16:35 BP, HR, EF%: Intervened (BP and HR WNL) List meds needing interventions: Has orders for isosorbide CR 60mg daily, losartan 12.5mg BID, metoprolol XL 75mg BID and torsemide 20mg daily. Spoke to provider regarding 2 active metoprolol orders, a 12.5mg q6h and a 50mg XL BID. Patient received a dose of 12.5mg at 0600 and then a dose of the 50mg at 0953. Provider looked into it and discontinued both, changing to an order for 75mg XL BID. QTc Review QTc: Reviewed (474 from 12/20/24) IV to PO Switch IV Medications: Reviewed Home Meds Home Med List reviewed: Intervened Relevent Home Meds Not ordered & why?: amlodipine (on hold per H+P), cefadroxil, spironolactone (on hold per H+P) Spoke to provider regarding cefadroxil. Looks like its a prescription that was filled on 12/17 for a 7 day supply. I did not see any mention of an infection in patients previous notes expect in regards to Levoquin that patient was on a few weeks ago for pneumonia. Provider looking into it, waiting to hear back. Current Meds Current Medication Order Review: Intervened Comments: Changed pantoprazole timing from 0830 to 0730 per pharmacy protocol Discontinued 1 APAP order (2 PRN orders were put in) Changed nitroglycerin frequency from q5m to q5 min PRN X 3 Pharmacy Antibiotic Review Relevant Labs: WBC 18.41 10^3/uL (4.4-10.8) H 12/22/24 06:02 Temperature 36 C Temperature 36.5 C Temperature 36.6 C Microbiology 12/20/24 23:09 Urine Culture - Preliminary Urine - Reflex from Ua Gram positive tatyana Pharmacy Antibiotic Activity: C/S review Comments: WBC increased from 15.04 and urine culture positive. Informed provider of culture this AM (and about cefadroxil prescription that was recently filled - see home meds section) and have not heard back yet. Currently no orders for any antibiotics.
--- NOTE | 2024-12-22 15:03 | PT.INIE ---
PT Notes Visit Reasons: Hypotension, CAD, CHF, CKD, NIDDM Physical Therapy Inpatient Initial Evaluation Date: 12/22/2024 Referring Doctor: Jack Humphrey MD PT Orders: PT CONSULT: Safety Consult for D/C. Fall safety assessment Precautions: Fall. Standard. Activity as tolerated. Left transtibial amputation, uses L TKA O[place]ur Speed prosthesis. Patient Profile/Admitting Diagnosis: Ed is a 64-year-old male patient with complex medical history recently treated for R LL PNA with Levaquin and prednisone for the past 2 weeks. Patient with adverse reaction of weakness and dizziness with cessation of prednisone one week ago. He takes Oxycodone for his chronic phnaantom limb pain on the L and limb pain on the R. Imaging in the ED did not reveal any new infiltrates at that improving chest x-ray from previous. He was admitted for continued medication adjustment and maangement of acute drug-induced hypotension, hypomagenesemia, and wound on R foot, shortness of breath. Referral to PT was made to determine fall risk and for safety consult for D/C. PMHX: All Active Problems Acute hypotension (Acute) Hypomagnesemia (Acute) Hypotension due to drugs (Acute) Shortness of breath (Acute) 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 (Acute) COPD (chronic obstructive pulmonary disease) (Chronic) Anemia (Chronic) Hyperthyroidism (Chronic) Elevated liver enzymes (Acute) Hx of left BKA (Acute) Hyperlipidemia (Chronic) Hyperkalemia (Acute) Surgical wound infection (Acute) CHF (congestive heart failure) (Chronic) Severe sepsis (Acute) PVD (peripheral vascular disease) (Chronic) Diabetes (Chronic) Diabetic foot ulcer (Chronic) Cellulitis of right ankle (Acute) No-show for appointment (Acute) Medical History Retinal disease, left Uses continuous positive airway pressure (CPAP) ventilation at home Hypotension Dehydration Below-knee amputation of left lower extremity Peripheral neuropathy Cervicalgia Headache, post-traumatic COVID-19 Phantom limb pain Tobacco use Chronic kidney disease, stage III (moderate) Inferior [place] 2006 Hx of pancreatitis Exposure to COVID-19 virus 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 Fiaide takes care of meals, chores, dri=ving and grocery shopping. Patient is now on his 5th L BKA protheses since he had his L BKA amputation 8 years ago. Ed has been able to indepeddently perform transfers indoors using B hands for support. Main mode of mobility indoors and outdoors is the wheelchair. Equipment Owned/DME: L BKA prosthesis, bedside commode, wheelchair, 2 FWWs Subjective: prefers to be called Ed. Has fallen repeatedly, more than 20x, since fracture of foot back in April 2024. He therefore has felt compelled to just use his wheelchair for all indoor and outdoors ambulation using his wheelchair for the past 2-3 months. He has been able to transfer independently from bed<>wheelchair<>to commode independently using B hands for support with L BKA. He has felt imbalanced as he has been unable to find a footwear comfortable enough to accommodate his R foot that has has skin breakdown/wound to equalize leg length on B sides as a regular shoe has not been able to safely contain R foot. Said that nursing staff is working on geeting him a wound vacuum machine by end of day today. He has had no wound vacuum the whole morning and afternoon today as of this PT evalaution. Objective: General Observation: Seated at edge of bed. IV through L antecubital area. L transtibial cylindrical residula limb. Mild erythema, swelling, hypertorphic sj=kin changes seen on R leg. R foot with wound vacuum tubing detached. Mental Status: Alert and oriented as to person, place, time, and purpose. Able to pay attention, focus, and respond appropriately. Pain: 5-6/10 in L phantom limb and R leg and foot Vital Signs: WNL with BP up to 133/70s when taken at start of PT session by RAO Puga ROM: Right Upper Extremity: Shoulder Flexion WFL. Shoulder abduction WFL. Elbow flexion WFL. Wrist flexion WFL. Functional opening and closing of hand WFL. Left Upper Extremity: Shoulder Flexion WFL. Shoulder abduction WFL. Elbow flexion WFL. Wrist flexion WFL. Functional opening and closing of hand WFL. Right Lower Extremity: Hip flexion up to 100 degrees. Hip abduction WFL. Knee flexion 20 degrees to 100 degrees.Knee extension -20 degrees. Ankle dorsiflexion to neutral only. Ankle plantarflexion about 20 degrees. Left Lower Extremity: Hip flexion up to 110 degrees. Hip abduction WFL. Knee flexion 10 degrees to 100 degrees. Knee extension -10 degrees. Strength: Right Upper Extremity: Shoulder flexors 4/5. Shoulder abductors 4/5. Elbow flexors 5/5. Elbow extensors 5/5. Bingo Clerk strong. Left Upper Extremity: Shoulder flexors 4/5. Shoulder abductors 4/5. Elbow flexors 5/5. Elbow extensors 5/5. Bingo Clerk strong. Right Lower Extremity: Hip flexors 3-/5. Hip abductors 4-/5. Knee flexors 3-/5. Knee extensors 3-/5. Ankle dorsiflexors 3-/5. Ankle plantarflexors 3-/5. Left Lower Extremity: Hip flexors 3-/5. Hip abductors 4-/5. Knee flexors 3-/5. Knee extensors 3-/5. Bed Mobility/Transfers: Rolling independent Supine to sit independent Sit to supine independent Sit to stand set up assist with placement of reclining wheelchair perpendicular to edge of bed to allow adequate support onto arm rest as patient does not feel safe using the FWW and is not receptive to use of front-wheeled walker at this time Stand to sit set up with placement of reclining wheelchair perpendicular to edge of bed to allow adequate support onto arm rest as patient does not feel safe using the FWW and is not receptive to use of front-wheeled walker at this time Bed to reclining chair set up assist with placement of reclining wheelchair perpendicular to edge of bed to allow adequate support onto arm rest as patient does not feel safe using the FWW and is not receptive to use of front-wheeled walker at this time Reclining chair set up assist with placement of reclining wheelchair perpendicular to edge of bed to allow adequate support onto arm rest as patient does not feel safe using the FWW and is not receptive to use of front-wheeled walker at this time Gait: Transfers only at this time. Patient was more receptive to standing up and transferring with leg length equalized using post-op shoe that allowed accommodation of R foot wound with the L LE having the L TT rosthesis. Patient was able to sidestep 3 times at bedside to comfortably place himslef onto bed. Balance: Static Sitting: Normal Dynamic Sitting: Normal Static Standing: Fair Dynamic Standing: Poor Special Tests: Mobility Limitations Standardized Measure [facility] AM-PAC 6 clicks Basic Mobility Inpatient Short Form: Raw Score: 9 CMS Score: 80% deficit Informed Consent/Education: Patient was instructed in purpose of PT consult and plan of care. Agreeable to proceed with established PT POC to achieve personal goals. Assessment: Provision of a post-op shoe that would accommodate non-healing wound on the R foot and swelling of the R foot while adequately equalizing leg length with the L side with L TT prosthesis has increased patient's confidence to move and take steps. he has been working with a PT who has been using a special boot at home just for PT sessions as said boot has been aggravating the diav=betic wound on the R foot. The post-op shoe given to patient has sufficient padding that protects dressed open area while ensuring stability of weight bearing. Patient presents with clinical signs and symptoms consistent with current/admitting diagnoses that have resulted to mobility limitations, gait instability, generalized weakness, and overall ADL decline as demonstrated by the following impairment level findings: 1. Decreased strength to B LE major muscle groups 2. Impaired sitting/standing balance 3. Impaired activity tolerance 4. Limitation of joint range of motion as above 5. Shortness of breath 6. Chronic wound on R foot 7. L TT residula limb with phantom limb pain Impairments are contributing to the following functional limitations: 1. Difficulty with ambulation 2. Increased completion time for mobility ADL performance 3. Increased risk for falls 4. Difficulty with managing steps alone safely 5. Increased isk for infection in wounded area Patient is assessed as a 49981 moderate complexity based on the following: History: 64-year-old male with past medical history as indicated above Examination: Demonstrable impairment in strength, balance, and mobility level with underlying impairments and functional limitations as exhibited above as well as deficit score of 80% utilizing the [facility] Mobility Inpatient Short Form Presentation: evolving Decision Makin moderate complexity Goals: Goals X1 week 1. Supine-Sit independent 2. Sit-Supine independent 3. Sit-Stand independent 4. Stand-Sit independent with B UE support for recliner arm rests 5. Bed-Chair independent with B UE support for recliner arm rests 6. Chair-Bed independent with B UE support for recliner arm rests 7. Independent gait on level surface with use of FWW for at least 15 feet without report of pain nor dyspnea 8. Independent with home exercise program 9. Good static and dynamic standing balance/tolerance Plan of Care/Treatment Plan: 1-2x/day, 7 days/week x 1 week. Plan of care has been reviewed with the WEB MERCHANT providing the service under Physical Therapy direction. Initiate Physical Therapy intervention for pain management as needed, strengthening, bed mobility, transfers, gait, stairs, balance training, and use of assistive device. DISCHARGE RECOMMENDATIONS: [] Home with no services [] [X] Home with services. Patient will benefit from resumption of home health PT services in order to progress mobility level using least restrictive assistive ambulatory device, assess home safety, identify additional equipment needs, and establish a functional maintenance program that will increase ability of patient to remain at home. [] Home with outpatient PT [] [] SNF for continued rehabilitation [] [] Manager Electrical Care [] [] SNF versus LTC based on ability to participate and progress [] TREATMENT CODE/TIME: 94319 x 25 minutes for 1 unit, 26530 x 32 minutes for 2 units (15:03-16:00). Thank you for the opportunity to participate in the care of this patient. Yolanda William PT, DPT, CLT [facility] [place], [place]
--- NOTE | 2024-12-22 16:18 | PGE_ITS ---
Date of Service Date of service: 12/22/24 Time of Service: 16:18 Assessment and Plan Assessment and plan (1) Hypotension due to drugs: Start date: 12/20/24 Status: Acute Assessment and plan: I agree presentation related to adrenal insufficiency with frequent prednisone with recent cessation. He noted this happening in the past when finished with prednisone Increaed diuresis including spironolacton also contributing, holding this. He would like to resume his loop at a lower dose 20mg/10mg, which is reasonable. BP stabilized and symptoms much improved on stress dose steroids and holding diuretics. Now off IV hydrocortisone, on oral prednisone this morning. This should be sufficient to cover possible adrenal insufficiency, though we could consider transition to hydrocortisone orally since he did better on IV hydrocortisone. Follow orthostatic BPs. He will need prolonged steroid taper and possibly maintenance dosing. (2) CHF (congestive heart failure): Status: Chronic Assessment and plan: Resumed torsemide, just continue 20mg daily for now with lightheadedness. Echocardiogram done 10/26/14 confirms LVEF 25%. No need to repeat. Try to maximize GDMT prior to discharge, but will not resume MRA as spiron olactone seemed to be trigger of this admission. (3) COPD (chronic obstructive pulmonary disease): Status: Chronic Assessment and plan: With chronic home O2 at 2 L/min per nasal cannula. O2 at baseline, continue outpatient inhalers, nebs. Also resuming steroid taper as above (4) HTN (hypertension): Assessment and plan: Resume slowly as BP increasing. Try off amlodipine so we can maximize his GDMT for HFrEF. Consolidate metoprolol to 75mg succinate BID (before admission was on 100mg BID) Resume losartan today Follow orthostatics (5) Diabetes mellitus: Assessment and plan: Glucometer measurements before meals and bedtime with sliding scale coverage. Sugars have been high on steroids, increase glargine and sliding scale. (6) CAD (coronary artery disease): Assessment and plan: No evidence of exacerbation with patient to continue outpatient medical therapy clopidogrel/statin. (7) Phantom limb pain: Assessment and plan: Continue outpatient oxycodone as needed (8) Wound of foot: Status: Acute Assessment and plan: A/w DM and PAD. Wound vac on heel, open ulcer also on foot. Wound care orders from outpatient placed so we can resume wound vac. Subjective Subjective Patient reports: denies diarrhea, vomiting, shortness of breath or fever Interval history since last seen: Events: Resumed torsemide 10mg in PM, then 20mg this morning Off IV hydrocortisone this morning, on prednisone 40mg ondansatron ODT 4mg this morning for nausea Wound vac from outpatient out of batteries today C/o feeling weaker on his feet today when tryign to stand up. Nausea better this morning with ondansatron. He did eat lunch well. He feels a little lightheaded with standing. No chest pain. No focal weakness. Exam Narrative Exam Narrative: General: Alert and oriented x 3. He is in no acute distress. Lungs: Coarse breath sounds and expiratory wheezing diffusely without focalizing, no rales, normal effort Heart: Regular rate and rhythm with distant heart sounds. No murmur or gallop appreciated. Abdomen: soft, NT Extremities: right ankle with Delfin wrap and wound VAC. Trace edema bilaterally. No clubbing or cyanosis. Skin: Pale, warm and dry. Right ankle ulcer with wound VAC and dry dressing above. Objective Last Vital Signs Temp 36.4 C L 12/22/24 15:32 Pulse 81 12/22/24 15:32 Resp 16 12/22/24 15:32 BP 133/76 12/22/24 15:32 Pulse Ox 94 12/22/24 15:32 Laboratory Results - last 24 hr 12/21/24 12/22/24 20:32 06:02 WBC 18.41 H RBC 3.89 L Hgb 9.9 L Hct 30.7 L MCV 79 L MCH 25.4 L MCHC 32.2 RDW 17.8 H Plt Count 208 MPV 11.7 H Sodium 135 L Potassium 3.9 Chloride 100 Carbon Dioxide 25.9 Anion Gap 9.1 BUN 47 H Creatinine 1.8 H Est GFR (CKD-EPI 2020) 42.03 Glucose 441 H 369 H Calcium 8.8 Magnesium 2.0 Total Bilirubin 0.5 AST 14 L ALT 13 L Alkaline Phosphatase 147 H Total Protein 6.2 L Albumin 2.6 L Time Spent with Patient Time Spent with Patient: >50 minutes Time was spent: preparing to see the patient(eg.review tests), obtaining and/or reviewing separately otained hiistory, ordering medications,tests, procedures, referring, communicating with other health spiritual care coordinator, indepentently interpreting results, counseling the patient and care coordination
[2024-12-22] MEDS: Hydrocortisone SOD SUC. 100 MG VIAL 25 MG IVP (17:00)
[2024-12-22] MEDS: Pantoprazole 40 MG TABCR PO (21:07)
[2024-12-22] MEDS: Tamsulosin 0.4 MG CAPCR PO (21:09)
[2024-12-22] MEDS: Losartan 25 MG TAB 12.5 MG PO (21:09)
[2024-12-22] MEDS: Metoprolol CR 50 MG TABCR 75 MG PO (21:10)
[2024-12-22] MEDS: Normal Saline Flush 10 ML SYR IVP (21:11)
[2024-12-22] MEDS: Enoxaparin 40 MG/0.4 ML SYR SC (21:11)
[2024-12-22] MEDS: Insulin Glargine 300 UNITS/3 ML PEN 30 UNITS SC (21:12)
[2024-12-22] MEDS: Albuterol HFA 8 GM 60 PUFF INH IH (21:48)
[2024-12-23] VITALS (11 sets, daily range): BP systolic 136–148; BP diastolic 77–90; PULSE 77–88; RESP 5–19; TEMP 35.9–36.8; O2SAT 92–96
[2024-12-23] MEDS: Normal Saline 1,000 ML 100 ML IV (01:32)
[2024-12-23] MEDS: Albuterol/Ipratropium 3 ML UPD VIAL UPD ×4 (02:12→21:39)
[2024-12-23 06:58] LABS: Anion Gap 7.2 mmol/L (3-11); BUN 47 mg/dL (7-18); CO2 26.8 mmol/L (21.0-32.0); CREATININE 1.5 mg/dL (0.70-1.30); Calcium 8.7 mg/dL (8.5-10.1); Chloride 101 mmol/L (98-107); Estimated GFR 52.31 (mL/min/1.73m2); Glucose 215 mg/dL (74-106); Potassium 3.8 mmol/L (3.5-5.1); Sodium 135 mmol/L (136-145)
[2024-12-23] MEDS: Pantoprazole 40 MG TABCR PO ×2 (07:26→21:39)
[2024-12-23] MEDS: Normal Saline Flush 10 ML SYR IVP ×2 (07:26→21:45)
[2024-12-23] MEDS: Ondansetron O.D.T. 4 MG TABEF PO ×2 (07:27→16:11)
[2024-12-23] MEDS: Budesonide/Formoterol 160/4.5 6 GM 60 PUFF INH IH ×2 (07:47→21:39)
[2024-12-23] MEDS: Tiotropium Bromide-Respimat 10 PUFF INH 2 PUFF IH (07:47)
[2024-12-23] MEDS: Insulin Aspart 300 UNITS/3 ML PEN SC ×4 (08:14→21:44)
[2024-12-23] MEDS: Hydrocortisone 10 MG TAB 50 MG PO (08:15)
[2024-12-23] MEDS: Metoprolol CR 50 MG TABCR 75 MG PO ×2 (08:15→21:40)
[2024-12-23] MEDS: Ranolazine 500 MG TABCR PO ×2 (08:16→21:40)
[2024-12-23] MEDS: Lactobacillus Acidophilus CAP 1 CAP PO (08:16)
[2024-12-23] MEDS: Sodium Bicarbonate 650 MG TAB 1300 MG PO ×2 (08:16→21:40)
[2024-12-23] MEDS: Isosorbide Mononitrate 60 MG TABCR PO (08:16)
[2024-12-23] MEDS: Losartan 25 MG TAB 12.5 MG PO ×2 (08:16→21:42)
[2024-12-23] MEDS: Aspirin E.C. 81 MG TABEC PO (08:16)
[2024-12-23] MEDS: Clopidogrel 75 MG TAB PO (08:16)
[2024-12-23] MEDS: Atorvastatin 40 MG TAB PO (08:17)
[2024-12-23] MEDS: DULoxetine 30 MG CAP 60 MG PO ×2 (08:17→21:41)
[2024-12-23] MEDS: Cholecalciferol (Vitamin D3) 1,000 UNIT TAB 5000 UNITS PO (08:17)
[2024-12-23] MEDS: Spironolactone 25 MG TAB 12.5 MG PO (08:26)
[2024-12-23] MEDS: Torsemide 20 MG TAB PO (08:26)
--- NOTE | 2024-12-23 08:40 | PT.INTREAT ---
PT Notes Visit Reasons: Hypotension, CAD, CHF, CKD, NIDDM Physical Therapy Inpatient Treatment Note Date: 12/23/2024 Precautions: Fall. Standard. Activity as tolerated. Left transtibial amputation, uses L TKA [place]ur Speed prosthesis. Subjective: Agreeable to doing bed level exercises and to performing a trial of ambulation later this morning. Happy that he finally get the wound vacuum loaner he needed as the one he came with had no charge. Objective: General Observation: resting supine in bed. IV through L antecubital area. L transtibial cylindrical residula limb. Mild erythema, swelling, hypertorphic sj=kin changes seen on R leg. R foot with wound vacuum tubing detached. Mental Status: Alert and oriented as to person, place, time, and purpose. Able to pay attention, focus, and respond appropriately. Pain: 54-5/10 in L phantom limb and R leg and foot Vital Signs: WNL with BP up to 133/70s when taken at start of PT session by RAO Kulkarni Mobility/Transfers: Not done for this morning session Gait: Not done for this morning session THERA EX: Guided patient with safe and correct technique in performing bed level exercises to maitain joint flexibility and prevent contracture formation: Partial bridging 5 sh, 10 reps Supine LAQ 5 sh, 10 reps Supine hip abduction x 10 SLR x 10 Assessment: Fatigued after performance of bed level exercises. Easy fatigueability related to predinosine withdrawal/taper. Patient was agreeable to breaking sessions into two but when PT came in later today to attempt walking, patient politely refused due to worsening nausea and fatigue. Plan of Care/Treatment Plan: 1-2x/day, 7 days/week x 1 week. Plan of care has been reviewed with the FLIGHT COORDINATOR providing the service under Physical Therapy direction. Initiate Physical Therapy intervention for pain management as needed, strengthening, bed mobility, transfers, gait, stairs, balance training, and use of assistive device. DISCHARGE RECOMMENDATIONS: [] Home with no services [] [X] Home with services. Patient will benefit from resumption of home health PT services in order to progress mobility level using least restrictive assistive ambulatory device, assess home safety, identify additional equipment needs, and establish a functional maintenance program that will increase ability of patient to remain at home. [] Home with outpatient PT [] [] SNF for continued rehabilitation [] [] Skilled Nursing Care [] [] SNF versus LTC based on ability to participate and progress [] TREATMENT CODE/TIME: 78413 x 15 minutes for 1 unit (08::40-08:55).
--- NOTE | 2024-12-23 13:44 | PGE_ITS ---
Date of Service Date of service: 12/23/24 Time of Service: 13:44 Assessment and Plan Assessment and plan (1) Hypotension due to drugs: Start date: 12/20/24 Status: Acute Assessment and plan: I agree presentation related to adrenal insufficiency with frequent prednisone with recent cessation. He noted this happening in the past when finished with prednisone Increased diuresis including spironolactone also contributed. BP stabilized and symptoms much improved on stress dose steroids and holding diuretics, however felt sluggish and some nausea despite oral prednisone or hydrocortisone which could be adrenal insufficiency. Will go back to prednisone tomorrow, but get AM cortisol/ACTH as shorter half life of hydrocortisone should allow this testing to be accurate. If this isn't clear, could get ACTH stim testing, perhaps as outpatient. He will need prolonged steroid taper and possibly maintenance dosing. (2) CHF (congestive heart failure): Status: Chronic Assessment and plan: Weight up after holding diuretics Resumed torsemide, just continue 20mg daily, added low dose spironolactone. Echocardiogram done 10/26/14 confirms LVEF 25%. No need to repeat. Try to maximize GDMT prior to discharge. If he needs more torsemide, consider sticking with daily dosing (perhaps 30mg given long half life of torsemide. (3) COPD (chronic obstructive pulmonary disease): Status: Chronic Assessment and plan: Some wheezing, but stable. On steroids. Has chronic home O2 at 2 L/min per nasal cannula. O2 at baseline, continue outpatient inhalers, nebs. (4) HTN (hypertension): Assessment and plan: Off amlodipine so we can maximize his GDMT for HFrEF. Consolidate metoprolol to 75mg succinate BID (before admission was on 100mg BID) Resumed losartan, could uptitrate. started low dose spironolactone. (5) Diabetes mellitus: Assessment and plan: Glucometer measurements before meals and bedtime with sliding scale coverage. Sugars have been high on steroids, increased glargine and sliding scale, sugars improving. (6) CAD (coronary artery disease): Assessment and plan: No cardiac symptoms, patient to continue outpatient medical therapy clopidogrel/statin. (7) Phantom limb pain: Assessment and plan: Continue outpatient oxycodone as needed (8) Wound of foot: Status: Acute Assessment and plan: A/w DM and PAD. Wound vac on heel, open ulcer also on foot. Wound care orders from outpatient placed so we can resume wound vac. He was on daily prophylactic antibiotics per [facility] for h/o osteomyelitis involving hardware in right ankle. Will resume these. Subjective Subjective Patient reports: tolerating a regular diet and voiding w/o difficulty; denies diarrhea, vomiting, shortness of breath or fever Interval history since last seen: Events: steroids back to hydrocortisone IV He still feels some general weakness, especially when trying to stand up. Occaisional nausea. No abdominal pain. He did work with PT. Exam Narrative Exam Narrative: General: Alert and oriented x 3. He is in no acute distress. Lungs: Coarse breath sounds and slight expiratory wheezing diffusely without focalizing, no rales, normal effort Heart: Regular rate and rhythm with distant heart sounds. No murmur or gallop appreciated. Abdomen: soft, NT, no masses Extremities: right ankle with Delfin wrap and wound VAC. Trace edema bilaterally. No clubbing or cyanosis. Skin: Pale, warm and dry. Objective Last Vital Signs Temp 36.0 C L 12/23/24 11:06 Pulse 77 12/23/24 11:06 Resp 16 12/23/24 11:06 BP 137/90 12/23/24 11:06 Pulse Ox 95 12/23/24 11:06 Laboratory Results - last 24 hr 12/23/24 06:18 Sodium 135 L Potassium 3.8 Chloride 101 Carbon Dioxide 26.8 Anion Gap 7.2 BUN 47 H Creatinine 1.5 H Est GFR (CKD-EPI 2020) 52.31 Glucose 215 H Calcium 8.7 Time Spent with Patient Time Spent with Patient: 35-49 minutes Time was spent: preparing to see the patient(eg.review tests), obtaining and/or reviewing separately otained hiistory, ordering medications,tests, procedures, referring, communicating with other health primary health care nurse, indepentently interpreting results, counseling the patient and care coordination
[2024-12-23] MEDS: Hydrocortisone 10 MG TAB 25 MG PO (14:09)
--- NOTE | 2024-12-23 15:37 | RESPIRATORY ---
Patient wears 2L pulse dose with portable 02 concentrator. DME is [facility].
--- NOTE | 2024-12-23 16:45 | CMPROGNOTE_ITS ---
Date of service: 12/23/24 Time of Service: 16:46 Care Management Progress Note Progress Note Text Progress Note Text: Ed was lying in the bed, watching TV, when CM met with him today. He was very pleasant. He is looking forward to going home tomorrow. He was noted to not be wearing any O2. Ed stated that his wound vac ran out of battery, and he had no way to charge it. He is currently using one from [facility], and stated to CM that he will take that home with him, get his own charged up, and change it out. His will bring back the [facility] vac. Discharge Potential Discharge Needs: PCP F/U Appt Anticipated Barriers to Discharge: None Identified Patient/Family Education Needs: Review discharge instructions, discuss Ask Me Three Transportation: RCT RCT Transportation: Wheel chair van Plan: Ed is expected to discharge tomorrow with resumption of [facility] RN and PT. He will f/u with his PCP and continue per his plan of care. Ed will transport via [facility] wheelchair van. CM will continue to follow. Social Determinants of Health Screening Social Determinants of health last assessed in clinic: 12/23/24 Will the Patient Participate in the Screening?: Yes Do you worry about having a steady place to live?: yes What is your living situation today?: I have housing today, but am worried about losing it Problems where you live: no known problems In the past 12 months, have you had to go without electric, gas, oil or water in your home?: no 1. Within the past 12 months, we worried whether our food would run out before we got money to buy more.: Don't know/refused 2. Within the past 12 months, the food we bought just didn't last and we didn't have money to get more.: Don't know/refused Has lack of transportation kept you from medical appointments or from doing things needed for daily living?: yes Has anyone in your life made you feel unsafe or unsupported?: no How hard is it for you to pay for the very basics like food, housing, medical care, and heating? Would you say it is:: Somewhat hard Do you want help finding or keeping work or a job?: Yes, help keeping work If for any reason you need help with day-to-day activities such as bathing, preparing meals, shopping, managing finances, etc., do you get the help you need?: I could use a little more help How often do you feel lonely or isolated from those around you?: Always Do you speak a language other than Bhutanese at home?: No Does the patient want assistance with any of the above?: Yes Comments: his works, patient needs all help that he could get like, ADL,transportation, housekeeping and somebody who will stay when will work. Health Related Social Needs Health related social needs: housing instability, housed, with risk of homelessness (Z59.811), transportation insecurity (Z59.82), problems related to housing/economic circumstances (Z59.89), problems finding work (Z56.9), problems with daily activities (Z73.9) and feeling lonely/isolated (Z60.8) Health related social needs details: patient stated of been approved by state to pay somebody to stay with him.
[2024-12-23] MEDS: Enoxaparin 40 MG/0.4 ML SYR SC (21:39)
[2024-12-23] MEDS: Tamsulosin 0.4 MG CAPCR PO (21:41)
[2024-12-23] MEDS: Insulin Glargine 300 UNITS/3 ML PEN 30 UNITS SC (21:42)
[2024-12-24] VITALS (12 sets, daily range): BP systolic 107–139; BP diastolic 54–78; PULSE 76–91; RESP 3–24; TEMP 36.3–37.1; O2SAT 90–98
[2024-12-24] MEDS: Albuterol/Ipratropium 3 ML UPD VIAL UPD ×3 (05:43→22:58)
[2024-12-24] MEDS: Normal Saline Flush 10 ML SYR IVP ×3 (05:44→21:26)
[2024-12-24 07:34] LABS: Anion Gap 9.1 mmol/L (3-11); BUN 49 mg/dL (7-18); CO2 23.9 mmol/L (21.0-32.0); CREATININE 1.6 mg/dL (0.70-1.30); Calcium 8.8 mg/dL (8.5-10.1); Chloride 105 mmol/L (98-107); Estimated GFR 48.41 (mL/min/1.73m2); Glucose 121 mg/dL (74-106); Potassium 3.4 mmol/L (3.5-5.1); Sodium 138 mmol/L (136-145)
[2024-12-24] MEDS: Tiotropium Bromide-Respimat 10 PUFF INH 2 PUFF IH (08:54)
[2024-12-24] MEDS: Budesonide/Formoterol 160/4.5 6 GM 60 PUFF INH IH ×2 (08:54→19:46)
[2024-12-24] MEDS: Metoprolol CR 50 MG TABCR 75 MG PO ×2 (09:01→20:45)
[2024-12-24] MEDS: Ranolazine 500 MG TABCR PO ×2 (09:02→20:44)
[2024-12-24] MEDS: DULoxetine 30 MG CAP 60 MG PO ×2 (09:02→20:44)
[2024-12-24] MEDS: Aspirin E.C. 81 MG TABEC PO (09:03)
[2024-12-24] MEDS: Torsemide 20 MG TAB PO (09:03)
[2024-12-24] MEDS: Isosorbide Mononitrate 60 MG TABCR PO (09:03)
[2024-12-24] MEDS: Losartan 25 MG TAB 12.5 MG PO ×2 (09:04→20:45)
[2024-12-24] MEDS: Lactobacillus Acidophilus CAP 1 CAP PO (09:04)
[2024-12-24] MEDS: predniSONE 20 MG TAB 40 MG PO (09:05)
[2024-12-24] MEDS: Atorvastatin 40 MG TAB PO (09:05)
[2024-12-24] MEDS: Clopidogrel 75 MG TAB PO (09:05)
[2024-12-24] MEDS: Pantoprazole 40 MG TABCR PO ×2 (09:05→20:44)
[2024-12-24] MEDS: Sodium Bicarbonate 650 MG TAB 1300 MG PO ×2 (09:06→20:44)
[2024-12-24] MEDS: Cholecalciferol (Vitamin D3) 1,000 UNIT TAB 5000 UNITS PO (09:06)
[2024-12-24] MEDS: Spironolactone 25 MG TAB 12.5 MG PO (11:03)
--- NOTE | 2024-12-24 11:25 | CMPROGNOTE_ITS ---
Date of service: 12/24/24 Time of Service: 11:25 Care Management Progress Note Progress Note Text Progress Note Text: Yo was awake and lying in bed when CM met with him. He c/o diarrhea and is being tested for C-diff. Yo is planning to discharge home in the next 1-2 days with resumption of [facility] services and community supports. He wound was swapped over to one provided by [facility] and is functional. Per pt, he is no longer planning to have his bring in his concentrator, which may be reasonable since he is currently not wearing any supplimental O2 and reports that he's been on RA x 2 days. CM will continue to follow and check in with RT to find out if O2 should be reviewed with pt and encouraged. Discharge Potential Discharge Needs: PCP F/U Appt Anticipated Barriers to Discharge: None Identified Patient/Family Education Needs: Review discharge instructions, discuss Ask Me Three Transportation: RCT RCT Transportation: Wheel chair van Plan: Yo is planning to discharge home with resumption of H RN/PT services and community supports when medically ready for discharge. He will transport via [facility] W/C van and has decided that his does not need to bring his home o2 concentrator since he's been on room air X 2 days. CM will follow. Social Determinants of Health Screening Social Determinants of health last assessed in clinic: 12/24/24 Will the Patient Participate in the Screening?: Yes Do you worry about having a steady place to live?: yes What is your living situation today?: I have housing today, but am worried about losing it Problems where you live: no known problems In the past 12 months, have you had to go without electric, gas, oil or water in your home?: no 1. Within the past 12 months, we worried whether our food would run out before we got money to buy more.: Never true 2. Within the past 12 months, the food we bought just didn't last and we didn't have money to get more.: Never true Has lack of transportation kept you from medical appointments or from doing things needed for daily living?: yes Has anyone in your life made you feel unsafe or unsupported?: no How hard is it for you to pay for the very basics like food, housing, medical care, and heating? Would you say it is:: Somewhat hard Do you want help finding or keeping work or a job?: Yes, help keeping work If for any reason you need help with day-to-day activities such as bathing, preparing meals, shopping, managing finances, etc., do you get the help you need?: I could use a little more help How often do you feel lonely or isolated from those around you?: Always Do you speak a language other than Ivorian at home?: No Does the patient want assistance with any of the above?: Yes Comments: his works, patient needs all help that he could get like, ADL,transportation, housekeeping and somebody who will stay when will work. Health Related Social Needs Health related social needs: housing instability, housed, with risk of homelessness (Z59.811), transportation insecurity (Z59.82), problems related to housing/economic circumstances (Z59.89), problems finding work (Z56.9), problems with daily activities (Z73.9) and feeling lonely/isolated (Z60.8) Health related social needs details: patient stated of been approved by state to pay somebody to stay with him.
[2024-12-24] MEDS: Insulin Aspart 300 UNITS/3 ML PEN SC ×3 (12:14→22:53)
--- NOTE | 2024-12-24 13:38 | PTTR_ITS ---
PT Notes Visit Reasons: Hypotension, CAD, CHF, CKD, NIDDM Physical Therapy Inpatient Treatment Note Date: 12/24/2024 Precautions: Fall. Standard. Activity as tolerated. Left transtibial amputation, uses L TKA [place] Speed prosthesis. Subjective: Understands the importance of not missing a day of activity as his strength continues to wane if he does. Agreeable to trying out walking to start things off. Happy about how great and how far he walker today--the farthest so far since April of 2024. Objective: General Observation: Resting supine in bed. IV access through L antecubital area. L transtibial cylindrical residual limb. Mild erythema, swelling, hypertorphic skin changes on R leg. R foot with wound vacuum. Mental Status: Alert and oriented as to person, place, time, and purpose. Able to pay attention, focus, and respond appropriately. Pain: 5/10 in L phantom limb and R leg and foot Vital Signs: WNL as closely monitored by nursing staff Bed Mobility/Transfers: Rolling independent Supine to sit independent Sit to supine independent Sit to stand stand by assist with FWW Stand to sit stand by assist with FWW Bed to chair stand by assist with FWW Chair to bed stand by assist with FWW Gait: Facilitated safe performance of level surface ambulation covering a distance of 75 feet +100 feet x 75 feet using front wheeled walker with more efficient reciprocal advancement of B LE and much improved gait pattern due to equalized leg length with use of postop shoe on the R and with L TKA prosthesis on the L. Wheelchair follow was provided for anticipated seated rests. Patient complained of beginning soreness at end of L residual limb at end of activity. THERA EX: Reminded patient of room exercises to be done on his own BID as follows: Guided patient with safe and correct technique in performing bed level exercises to maitain joint flexibility and prevent contracture formation: Partial bridging 5 sh, 10 reps Supine LAQ 5 sh, 10 reps Supine hip abduction x 10 SLR x 10 Assessment: Patient was only beginning to try sidestepping with PT before admission to this hospital. He has thus far ginaed confidence with trying out walking knowing that his R foot has the adequate protection and has facilitated equal leg length with the L TKA prosthesis providing mediolateral stability and efficiency to his gait. Plan of Care/Treatment Plan: 1-2x/day, 7 days/week x 1 week. Plan of care has been reviewed with the MASONRY INSTRUCTOR providing the service under Physical Therapy direction. Initiate Physical Therapy intervention for pain management as needed, strengthening, bed mobility, transfers, gait, stairs, balance training, and use of assistive device. DISCHARGE RECOMMENDATIONS: [] Home with no services [] [X] Home with services. Patient will benefit from resumption of home health PT services in order to progress mobility level using least restrictive assistive ambulatory device, assess home safety, identify additional equipment needs, and establish a functional maintenance program that will increase ability of patient to remain at home. [] Home with outpatient PT [] [] SNF for continued rehabilitation [] [] [facility] Care [] [] SNF versus LTC based on ability to participate and progress [] TREATMENT CODE/TIME: 98896 x 34 minutes for 1 unit (13::38-14:12).
--- NOTE | 2024-12-24 19:33 | W.PM.PROGNOT ---
Date of Service Date of service: 12/24/24 Time of Service: 19:34 Assessment and Plan Assessment and plan (1) Hypotension due to drugs: Start date: 12/20/24 Status: Acute Assessment and plan: I agree presentation related to adrenal insufficiency with frequent prednisone with recent cessation. He noted this happening in the past when finished with prednisone Increased diuresis including spironolactone also contributed. BP stabilized and symptoms much improved on stress dose steroids and holding diuretics, however felt sluggish and some nausea despite oral prednisone or hydrocortisone which could be adrenal insufficiency. Back on prednisone today, sent AM cortisol/ACTH which are send outs. If this isn't clear, could get ACTH stim testing, perhaps as outpatient. He will need prolonged steroid taper and possibly maintenance dosing. Stayed today with diarrhea, but should be able to discharge if stable in am. (2) Diarrhea: Status: Acute Assessment and plan: a/w cefalosporin we resumed to treat chronic osteo. C. diff ordered this AM, but no samples to send since, which is reassuring. Changed abx to doxy which is the last one that [facility] recommended and less a/w c. diff. he is on probiotic (3) CHF (congestive heart failure): Status: Chronic Assessment and plan: Weight up after holding diuretics but down again today. Resumed torsemide, just continue 20mg daily, added low dose spironolactone. Echocardiogram done 10/26/14 confirms LVEF 25%. No need to repeat. Try to maximize GDMT prior to discharge. Could increase MRA or ARB if room. If he needs more torsemide, consider sticking with daily dosing (perhaps 30mg given long half life of torsemide. (4) COPD (chronic obstructive pulmonary disease): Status: Chronic Assessment and plan: Some wheezing, improving. On steroids. Has chronic home O2 at 2 L/min per nasal cannula. O2 at baseline, continue outpatient inhalers, nebs. (5) HTN (hypertension): Assessment and plan: Off amlodipine so we can maximize his GDMT for HFrEF. Consolidate metoprolol to 75mg succinate BID (before admission was on 100mg BID) Resumed losartan, could uptitrate. started low dose spironolactone, could go up on this as well. (6) Diabetes mellitus: Assessment and plan: Glucometer measurements before meals and bedtime with sliding scale coverage. Sugars have been high on steroids, increased glargine again and continue resistant sliding scale, sugars improving. (7) CAD (coronary artery disease): Assessment and plan: No cardiac symptoms, patient to continue outpatient medical therapy clopidogrel/statin. (8) Wound of foot: Status: Acute Assessment and plan: A/w DM and PAD. Wound vac on heel, open ulcer also on foot. Wound care orders from outpatient placed so we can resume wound vac. He was on daily prophylactic antibiotics per [facility] for h/o osteomyelitis involving hardware in right ankle. Cefadroxil caused diarrhea, replaced with doxycycline (this is option per not from ID) Subjective Subjective Patient reports: tolerating a regular diet and voiding w/o difficulty; denies nausea, vomiting, shortness of breath or fever Interval history since last seen: c/o up all night with several loose stools. No pain. He still feels some general weakness. Stools started yesterday evening after the new antibiotic resumed. Watery. no blood/black. Exam Narrative Exam Narrative: General: Alert and oriented. He is in no acute distress. Lungs: Coarse breath sounds and slight expiratory wheezing diffusely without focalizing, no rales, normal effort Heart: Regular rate and rhythm with distant heart sounds. No murmur or gallop appreciated. Abdomen: soft, NT, no masses Extremities: right ankle with Delfin wrap and wound VAC. Trace edema bilaterally. No clubbing or cyanosis. Skin: Pale, warm and dry. Objective Last Vital Signs Temp 36.8 C 12/24/24 18:37 Pulse 82 12/24/24 18:37 Resp 16 12/24/24 18:37 BP 138/72 12/24/24 18:37 Pulse Ox 93 12/24/24 18:37 Laboratory Results - last 24 hr 12/23/24 12/24/24 14:30 06:15 Sodium 138 Potassium 3.4 L Chloride 105 Carbon Dioxide 23.9 Anion Gap 9.1 BUN 49 H Creatinine 1.6 H Est GFR (CKD-EPI 2020) 48.41 Glucose 121 H Calcium 8.8 Cortisol 26.2 Time Spent with Patient Time Spent with Patient: 35-49 minutes Time was spent: preparing to see the patient(eg.review tests), obtaining and/or reviewing separately otained hiistory, ordering medications,tests, procedures, referring, communicating with other health healthcare science specialist, indepentently interpreting results, counseling the patient and care coordination
[2024-12-24] MEDS: Doxycycline Hyclate 100 MG CAP PO (20:44)
[2024-12-24] MEDS: Tamsulosin 0.4 MG CAPCR PO (20:45)
[2024-12-24] MEDS: Insulin Glargine 300 UNITS/3 ML PEN 34 UNITS SC (20:48)
[2024-12-24] MEDS: Enoxaparin 40 MG/0.4 ML SYR SC (22:52)
[2024-12-25 01:20] LABS: C Diff PCR Negative (Negative); EPI 027-NAP1-B1 PRESUMPTIVE NEGATIVE
--- NOTE | 2024-12-25 04:47 | NUR.NOTE ---
Nursing Note: Pt has had a few occurrences of liquid stool overnight. This nurse and the pt had a discussion about potential trends with the diarrhea at night. Noted on the pt's allergy list is glargine. The pt has been getting lantus QPM, though he takes Semglee at home. The pt stated that he believes that he last took lantus years ago and did not remember it regularly causing diarrhea. Pt stated that he was also taking between 80-100 units every night before switching to current home dose. This nurse asked the pt what he ate today, or if he ate anything new/different. The pt listed the foods he had eaten and stated that he did not ingest anything out of the usual and the foods have been mostly bland. The pt also stated that he tends to have diarrhea when put on antibiotics and especially if steroids are also involved. Pt has been placed on a probiotic as well.
[2024-12-25 06:41] LABS: Abs Immature Grans 0.16 10^3/uL (0.0-0.06); Absolute Basophil Count 0.03 10^3/uL (0.0-0.2); Absolute Eosinophil Count 0.02 10^3/uL (0.0-0.7); Absolute Lymphocyte Count 1.41 10^3/uL (1.2-3.4); Absolute Monocyte Count 0.81 10^3/uL (0.1-0.8); Absolute Neutrophil Count 14.52 10^3/uL (1.2-6.7); Basophils % 0.2 %; Eosinophils % 0.1 %; HCT 33.5 % (40.0-50.0); HGB 10.5 g/dL (13.5-17.5); Immature Grans % 0.9 %; Lymphocytes % 8.3 %; MCH 25.1 pg (27.0-33.0); MCHC 31.3 % (32.0-36.0); MCV 80 fL (80-95); MPV 11.5 fL (8.0-11.0); Monocytes % 4.8 %; Neutrophils % 85.7 %; Platelet Count 220 10^3/uL (130-400); RBC 4.19 10^6/uL (4.36-5.78); RDW 18.1 % (11.8-14.1); RDW-SD 52.1 fL; WBC 16.94 10^3/uL (4.4-10.8)
[2024-12-25 06:47] LABS: Anion Gap 7.9 mmol/L (3-11); BUN 47 mg/dL (7-18); CO2 24.1 mmol/L (21.0-32.0); CREATININE 1.5 mg/dL (0.70-1.30); Calcium 8.8 mg/dL (8.5-10.1); Chloride 104 mmol/L (98-107); Estimated GFR 52.31 (mL/min/1.73m2); Glucose 171 mg/dL (74-106); Magnesium 1.6 mg/dL (1.8-2.4); Potassium 3.8 mmol/L (3.5-5.1); Sodium 136 mmol/L (136-145)
[2024-12-25 07:48] VITALS: PULSE 67; RESP 16; RESP 9; O2SAT 94
[2024-12-25] MEDS: Albuterol/Ipratropium 3 ML UPD VIAL UPD (07:48)
[2024-12-25] MEDS: Budesonide/Formoterol 160/4.5 6 GM 60 PUFF INH IH (07:50)
[2024-12-25] MEDS: Tiotropium Bromide-Respimat 10 PUFF INH 2 PUFF IH (07:51)
[2024-12-25 08:02] VITALS: BP 139/68; PULSE 81; RESP 15; TEMP 36.8; O2SAT 95
--- NOTE | 2024-12-25 08:06 | RESPIRATORY ---
Spoke with patient about DARIO diagnosis and he advised he used to have a CPAP machine years ago but the DME took it away due to him being non-compliant with it.
[2024-12-25] MEDS: Doxycycline Hyclate 100 MG CAP PO (10:48)
[2024-12-25] MEDS: DULoxetine 30 MG CAP 60 MG PO (10:48)
[2024-12-25] MEDS: Pantoprazole 40 MG TABCR PO (10:49)
[2024-12-25] MEDS: Losartan 25 MG TAB 12.5 MG PO (10:49)
[2024-12-25] MEDS: Sodium Bicarbonate 650 MG TAB 1300 MG PO (10:50)
[2024-12-25] MEDS: Metoprolol CR 50 MG TABCR 75 MG PO (10:50)
[2024-12-25] MEDS: predniSONE 20 MG TAB 30 MG PO (10:51)
[2024-12-25] MEDS: Clopidogrel 75 MG TAB PO (10:52)
[2024-12-25] MEDS: Spironolactone 25 MG TAB 12.5 MG PO (10:52)
[2024-12-25] MEDS: Atorvastatin 40 MG TAB PO (10:52)
[2024-12-25] MEDS: Lactobacillus Acidophilus CAP 1 CAP PO (10:52)
[2024-12-25] MEDS: Aspirin E.C. 81 MG TABEC PO (10:52)
[2024-12-25] MEDS: Ranolazine 500 MG TABCR PO (10:53)
[2024-12-25] MEDS: Torsemide 20 MG TAB PO (10:53)
[2024-12-25] MEDS: Isosorbide Mononitrate 60 MG TABCR PO (10:53)
[2024-12-25] MEDS: Normal Saline Flush 10 ML SYR IVP (10:53)
[2024-12-25] MEDS: Insulin Aspart 300 UNITS/3 ML PEN SC ×2 (10:56→13:07)
[2024-12-25] MEDS: Cholecalciferol (Vitamin D3) 1,000 UNIT TAB 5000 UNITS PO (11:01)
--- NOTE | 2024-12-25 11:42 | PDOC.CMDIS ---
Date of service: 12/25/24 Time of Service: 11:43 LACE Index Scoring Tool Questions: Length of Stay (in days): 4 - 6 Was the patient admitted via the E.D.?: Yes Comorbidities: Diabetes w/o Complication, Congestive Heart Failure and Chronic Pulmonary Disease E.D. Visits: 5 Answers: Total Score: 16 Risk of Readmission: High Risk Care Management Discharge Plan Reason for Hospitalization: Hypotension, CAD, CHF, CKD, NIDDM Discharge Plan: Yo will be discharged home today with a resumption of HH RN/PT. He will follow up with his community providers and continue per his plan of care. Yo will transport via [facility] and has refused O2 for transport, at this time. Patient/Family Education Needs: Review discharge instructions, activity, limitations and plan of care. Discuss Ask Me Three. Services Needed at Discharge: Home Health Care Services (RN/PT) SDOH Health Related Social Needs: Health related social needs housing instability, housed, with risk of homelessness (Z59.811), transportation insecurity (Z59.82), problems related to housing/economic circumstances (Z59.89), problems finding work (Z56.9), problems with daily activities (Z73.9), feeling lonely/isolated (Z60.8) Health related social needs details patient stated of been approved by state to pay somebody to stay with him. Health related social needs details: patient stated of been approved by state to pay somebody to stay with him.
[2024-12-25 11:45] VITALS: BP 151/84; PULSE 82; RESP 14; TEMP 36.5; O2SAT 96
--- NOTE | 2024-12-25 14:53 | PDOC.HHF2F ---
Home Health Referral Home Health Orders Clinical synopsis of why skilled professionals are needed: multiple comorbities, complex wound management, wound vac Medical diagnosis necessitation home health referral: diabetes, Registered Nurse: Check all that apply Instruct on new or changed medication(s)/assess compliance: Ordered Assess for exacerbation of medical condition, instruct patient/caregivers on signs and symptoms to report for early detection: Ordered Assess wound for signs and symptoms of infection, instruct on wound care and/or provide skilled wound care consisting of: Wound Vac Pressure 125mmHG Dressing Type: cleans with wound cleanser or NS, prepare periwound area with skin prep and drape. Fill entire cavity with white FOA followed by black foam. Apply tubing and cover with transparent drape. Change Dressing: MWF and prn When removing the dressing, turn off vacuum and gently remove the drape to avoid trauma to skin. Physical Therapist: Check all that apply Increase strength & endurance for safe mobility at home: Ordered To design/establish home maintenance program: Ordered Fall reduction therapy program for patient with history of frequent falls: Ordered Home safety evaluation and teaching/gait training including stair management (if applicable): Ordered Occupational Therapist: Evaluate and treat for patient unable to perform ADL/IADL/self-care: Ordered Refrigeration Technician: Assist with community resources: Ordered Assist with custodial care planning: Ordered Encounter Date and Reason: I certify that a FTF encounter for this patient was performed on December 25, 2024 and that such encounter was related to the primary reason the patient requires home health services. The encounter was conducted in the following manner: By me as the certifying physician, FUGITIVE INVESTIGATOR, PA or By an inpatient physician, FUGITIVE INVESTIGATOR or PA during an inpatient stay who communicated findings to me, Certification And Authentication I certify that I composed the above information based on my clinical judgment relating to this patient's medical condition and, if applicable, clinical findings communicated to me by the NPP or inpatient physician who performed the FTF encounter. Name of Provider that will be monitoring home health services: Kalli Gamble
--- NOTE | 2024-12-25 15:01 | DSE_ITS ---
Date of service: 12/25/24 Time of Service: 15:01 DS: Diagnosis Discharge Diagnosis (1) Hypotension due to drugs: Status: Acute (2) Diarrhea: Status: Acute (3) CHF (congestive heart failure): Status: Chronic (4) COPD (chronic obstructive pulmonary disease): Status: Chronic (5) HTN (hypertension): (6) Diabetes mellitus: (7) CAD (coronary artery disease): (8) Wound of foot: Status: Acute Discharge Plan Disposition Patient Disposition: Home W/Home Health Services Condition: Stable Discharge Details Reason For Visit: Hypotension, CAD, CHF, CKD, NIDDM Admit Date/Time: 12/20/24 21:13 Admit Provider: Ken Neely Attending Provider: Ken Neely Primary Care Provider: Kalli Gamble V Hospital Course Hospital Course: This is a 64-year-old male patient complex past medical history with multiple comorbidities presents to the emergency department for evaluation of shortness of breath and hypotension. He was recently treated for COPD exacerbation on steroids and antibiotics. Blood pressure between 60 and 80 systolic but no symptoms of chest pain and was alert and oriented. It was thought his symptoms were due to overdiuresis and adrenal insufficiency from recent steroid use. He did receive IV fluids and steroids. Hospitalist services was contacted for admission. Wound VAC was maintained to his right ankle wound. A ntihypertensives were placed on hold. Diuretic doses were decreased. Hemodynamically he stabilized. He was eating and drinking bowels and bladder functioning voicing no new complaints. Today he is feeling improved and requesting discharge to home. He will be discharged to home on a slow steroid taper. He should continue reduced dose of his diuretics and should continue monitoring blood pressure and weights daily. He will be referred to home health services for nursing, PT OT and medical imaging technologist. Home Meds and New Rx's Prescriptions: New prednisone 10 mg tablet 10 mg PO DIRECTED Qty: 30 0RF Rx Instructions: see taper instructions take 3 tabs daily for 3 days, 2 tabs daily for 3 days, 1 tab daily for 3 days, 1/2 tab daily for 3 days Continued aspirin 81 mg tablet,delayed release (DR/EC) 81 mg PO DAILY clopidogrel 75 mg tablet 75 mg PO DAILY Glucagon Emergency Kit (human) 1 mg recon soln 1 mg subcut Q20M PRN Rx Instructions: until target blood sugar attained albuterol sulfate [Ventolin HFA] 90 mcg/actuation HFA aerosol inhaler 2 puff inhalation Q4H PRN ranolazine 500 mg tablet extended release 12 hr 500 mg PO BID Patient Comments: need to re-order, refill date 11/06 metoprolol succinate 100 mg tablet extended release 24 hr 100 mg PO BID isosorbide mononitrate 60 mg tablet extended release 24 hr 60 mg PO DAILY amlodipine 5 mg tablet 5 mg PO DAILY Patient Comments: TAKE 1 TABLET BY MOUTH DAILY atorvastatin 40 mg tablet 40 mg PO DAILY Patient Comments: TAKE 1 TABLET BY MOUTH DAILY budesonide-formoterol [Symbicort] 160-4.5 mcg/actuation HFA aerosol inhaler 2 puff INHALATION BID Patient Comments: INHALE 2 PUFFS BY MOUTH TWICE DAILY tamsulosin 0.4 mg capsule 0.4 mg PO QHS Patient Comments: TAKE 1 CAPSULE BY MOUTH DAILY Spiriva Respimat 2.5 mcg/actuation mist 2 inh inhalation DAILY (DME) Omnipod 5 G6-G7 Pods (Gen 5) Cartridge SUBCUT Patient Comments: CHANGE POD EVERY 24 TO 48 HOURS DIRECTED (DME) blood-glucose meter [ContraqerTouch Ultra2 Meter] Kit MISCELLANEOUS glucagon HCl [Glucagon (HCl) Emergency Kit] 1 mg Recon Soln 1 mg IM USEASDIRECTD pantoprazole 40 mg tablet,delayed release (DR/EC) 40 mg PO BID Patient Comments: TAKE 1 TABLET BY MOUTH TWICE DAILY insulin aspart U-100 [Novolog U-100 Insulin aspart] 100 unit/mL solution See Rx Instructions continuous subcutaneous infusion .COMPLEX Patient Comments: per pt no insulin since d/c Rx Instructions: medium dose sliding scale as well as meal associated insulin TID (1 unit per 5 grams of carbs) via continuous subcutaneous infusion; medium dose sliding scale as well as meal associated insulin TID (1 unit per 5 grams of carbs) (DME) Cvent G6 Sensor Device MISCELLANEOUS Patient Comments: 1 DEVICE EVERY 10 DAYS insulin glargine-yfgn [Semglee(insulin glarg-yfgn)Pen] 100 unit/mL (3 mL) insulin pen 24 unit subcut QPM nitroglycerin 0.4 mg tablet, sublingual 0.4 mg sublingual Q5M PRN Patient Comments: DISSOLVE ONE TABLET UNDER TONGUE NEEDED FOR CHEST PAIN EVERY 5 MINUTES. NOT TO EXCEED 3 TABLETS IN 24 HOURS docusate sodium [Colace] 100 mg capsule 100 mg PO BID PRN cholecalciferol (vitamin D3) [Vitamin D3] 25 mcg (1,000 unit) tablet 5,000 unit PO DAILY Probiotic Acidophilus 250 million cell capsule 1,000 mmu cells PO DAILY oxycodone-acetaminophen 10-325 mg tablet 1 tab PO BID PRN Patient Comments: TAKE 1 TABLET BY MOUTH TWICE DAILY FOR CHRONIC PAIN sodium bicarbonate 650 mg tablet 1,300 mg PO BID Patient Comments: TAKE 2 TABLETS BY MOUTH THREE TIMES DAILY losartan 25 mg tablet 12.5 mg PO BID Patient Comments: TAKE 1/2 TABLET BY MOUTH TWICE DAILY duloxetine 60 mg capsule,delayed release(DR/EC) 60 mg PO BID Patient Comments: TAKE 1 CAPSULE BY MOUTH TWICE DAILY Changed torsemide 20 mg tablet 20 mg PO DAILY Qty: 0 0RF Patient Comments: TAKE 1 TABLET BY MOUTH TWICE DAILY spironolactone 25 mg tablet 12.5 mg PO DAILY Qty: 0 0RF Patient Comments: TAKE 1/2 TABLET BY MOUTH TWICE DAILY Discontinued cefadroxil 500 mg capsule 500 mg PO BID Patient Comments: TAKE 1 CAPSULE BY MOUTH TWICE DAILY FOR 7 DAYS Discharge Instructions Instructions: Negative Pressure Wound Therapy, Dealing with Low Blood Pressure from the Drugs You Take, Hypomagnesemia Additional Instructions: wound vac as instructed take medication as instructed Follow your blood pressure daily and bring log to follow-up appointment for your primary care provider to review Check weights daily and report a 5 pound weight gain in 3 to 5 days to your provider for further medication adjustment. Your diuretic dose has been reduced and may need to be increased as you continue to improve Referrals: Kalli Gamble MD [Primary Care Provider] - Activity:: Activity as Tolerated Equipment/Supplies:: No Equipment Needed Diet:: As Tolerated DS: Summary Time Spent with Patient providing and/or coordinating discharge services: Greater than 30 minutes Status at Discharge Functional status at discharge: wheelchair bound Overall status at discharge: patient is progressing back to baseline Mental Status: mental status grossly normal Speech and Movement: speech and movement normal Mood: congruent mood Affect: normal affect Quality:SDOH Health Related Social Needs: Health related social needs housing instability, house d, with risk of homelessness (Z59.811), transportation insecurity (Z59.82), problems related to housing/economic circumstances (Z59.89), problems finding work (Z56.9), problems with daily activities (Z73.9), feeling lonely/isolated (Z60.8) Health related social needs details patient stated of been approved by state to pay somebody to stay with him. Health related social needs details: patient stated of been approved by state to pay somebody to stay with him. Exam Const General: cooperative, comfortable, no acute distress and ill appearing chronically Nutritional Appearance: obese Orientation: alert, awake and oriented x3 HENMT Head: normal to inspection Resp Effort & Inspection: normal respiratory effort Auscultation: clear to auscultation bilaterally Cardio Rate: regular rate Rhythm: regular rhythm GI Inspection: normal to inspection Palpation: soft Auscultation: normal bowel sounds Skin General skin exam: no rashes or lesions noted Lesions: other (Wound VAC dressing intact to right lower extremity) Extrem General: full ROM and amputation noted Below the knee: left Right lower extremity: edema (Trace) Details: non-pitting Psych Mental Status: mental status grossly normal Speech and Movement: speech and movement normal Mood: congruent mood Affect: normal affect DS: Data Vitals/I&O Vitals and I&O: Vital Signs Temperature 36.5 C 12/25/24 11:45 Temperature Source Temporal Artery Scan 12/25/24 11:45 Pulse 82 12/25/24 11:45 Pulse Rhythm Irregular 12/20/24 22:20 Pulse 74 12/20/24 21:46 Respiratory Rate 14 12/25/24 11:45 Respiratory Effort Non-Labored 12/20/24 22:20 Respiratory Depth Deep 12/20/24 22:20 Respiratory Pattern Irregular 12/20/24 22:20 Blood Pressure 151/84 H 12/25/24 11:45 Blood Pressure Mean 106 12/25/24 11:45 Blood Pressure Position Sitting 12/20/24 15:47 Pulse Oximetry 96 12/25/24 11:45 Oxygen Delivery Method Room Air 12/25/24 11:45 Oxygen Flow Rate 0 12/25/24 11:45 Fraction of Inspired Oxygen (FIO2) 2 12/21/24 00:06 Pain Level 0 12/24/24 18:37 Comment RN notified 12/25/24 11:45 Intake & Output 12/24/24 12/25/24 12/25/24 23:59 11:59 23:59 Intake Total 310 / 320 400 / 400 Output Total 1150 / 1750 1400 / 1400 Balance -840 / -1430 -1000 / -1000 Intake: IV 10 / 20 Oral 300 / 300 400 / 400 Output: Output, Wound Vac (mls) 0 / 0 Urine 1150 / 1750 1100 / 1100 Stool 300 / 300 Other: Urine Color Yellow Yellow Urine Appearance Clear Clear Urine Odor None Normal Stool Size Moderate Stool Characteristics Liquid Brown Data Completed and Pending Labs on day of discharge: Labs from last 24 hours 12/25/24 12/25/24 05:43 00:28 WBC 16.94 H RBC 4.19 L Hgb 10.5 L Hct 33.5 L MCV 80 MCH 25.1 L MCHC 31.3 L RDW 18.1 H Plt Count 220 MPV 11.5 H Immature Gran % 0.9 Neutrophils % 85.7 Lymphocytes % 8.3 Monocytes % 4.8 Eosinophils % 0.1 Basophils % 0.2 Nucleated RBC % 0.0 Absolute Neutrophils 14.52 H Absolute Lymphocytes 1.41 Absolute Monocytes 0.81 H Absolute Eosinophils 0.02 Absolute Basophils 0.03 Sodium 136 Potassium 3.8 Chloride 104 Carbon Dioxide 24.1 Anion Gap 7.9 BUN 47 H Creatinine 1.5 H Est GFR (CKD-EPI 2020) 52.31 Glucose 171 H Calcium 8.8 Magnesium 1.6 L Stl C.difficile Tox PCR Negative PFSH All Active Problems (Updated 12/24/24 @ 19:37 by Jack Humphrey) Diarrhea (Acute) Wound of foot (Acute) Acute hypotension (Acute) Hypomagnesemia (Acute) Hypotension due to drugs (Acute) Shortness of breath (Acute) 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 (Acute) COPD (chronic obstructive pulmonary disease) (Chronic) Anemia (Chronic) Hyperthyroidism (Chronic) Elevated liver enzymes (Acute) Hx of left BKA (Acute) Hyperlipidemia (Chronic) Hyperkalemia (Acute) Surgical wound infection (Acute) CHF (congestive heart failure) (Chronic) Severe sepsis (Acute) PVD (peripheral vascular disease) (Chronic) Diabetes (Chronic) Diabetic foot ulcer (Chronic) Cellulitis of right ankle (Acute) No-show for appointment (Acute) Medical History Retinal disease, left Uses continuous positive airway pressure (CPAP) ventilation at home Hypotension Dehydration Below-knee amputation of left lower extremity Peripheral neuropathy Cervicalgia Headache, post-traumatic COVID-19 Phantom limb pain Tobacco use Chronic kidney disease, stage III (moderate) Inferior [place] 2006 Hx of pancreatitis Exposure to COVID-19 virus 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 CAD (coronary artery disease) multiple stents 2006 Diabetes mellitus GERD (gastroesophageal reflux disease) HTN (hypertension) Hypercholesterolemia DARIO (obstructive sleep apnea) Obesities, morbid Migraine Neuropathy Diabetic foot ulcer Poorly controlled diabetes mellitus Chest pain Surgical History Hx of cardiac catheterization Status post below knee amputation of left lower extremity History of lung biopsy History of heart artery stent S/P foot surgery Social History Smoking/Tobacco Use Status: Former Tobacco Use Quit Date: 05/30/24 Smoking risk assessment performed?: Yes Alcohol Intake: never Drug use: Never Substance use type: does not use Housing: house Do you feel safe at home: Yes Do you feel safe in your relationship?: Yes Time Spent with Patient Time Spent with Patient: 70-84 minutes4 Time was spent: preparing to see the patient(eg.review tests), obtaining and/or reviewing separately otained hiistory, ordering medications,tests, procedures, indepentently interpreting results, counseling the patient and care coordination
[2024-12-25 15:19] VITALS: BP 136/77; PULSE 81; RESP 17; TEMP 36.5; O2SAT 92
[2024-12-27 11:49] LABS: Adrenocorticotropic Hormone, P 10 pg/mL
== END 2024-12-25 16:37 | disposition home health service (06) | DRG 312 ==
LOC: ER 21:19 → MS 21:57
PROVIDERS: Family Medicine; Admitting Provider Family Medicine; Emergency Provider Emergency Medicine; PCP Family Medicine; Responsible Provider Nurse Practitioner Acute Care; Visit Provider Family Medicine
DX: I95.2 Hypotension due to drugs (principal); I50.42 Chronic combined systolic (congestive) and diastolic (congestive) heart failure; I13.0 Hypertensive heart and chronic kidney disease with heart failure and stage 1 through stage 4 chronic kidney disease, or unspecified chronic kidney disease; N18.4 Chronic kidney disease, stage 4 (severe); E87.1 Hypo-osmolality and hyponatremia; E27.3 Drug-induced adrenocortical insufficiency; L97.418 Non-pressure chronic ulcer of right heel and midfoot with other specified severity; L97.319 Non-pressure chronic ulcer of right ankle with unspecified severity; K52.1 Toxic gastroenteritis and colitis; M86.68 Other chronic osteomyelitis, other site; E83.42 Hypomagnesemia; E11.22 Type 2 diabetes mellitus with diabetic chronic kidney disease; Z79.4 Long term (current) use of insulin; I73.9 Peripheral vascular disease, unspecified; I25.10 Atherosclerotic heart disease of native coronary artery without angina pectoris; E78.2 Mixed hyperlipidemia; K21.9 Gastro-esophageal reflux disease without esophagitis; G47.33 Obstructive sleep apnea (adult) (pediatric); G54.6 Phantom limb syndrome with pain; R19.7 Diarrhea, unspecified; Z89.512 Acquired absence of left leg below knee; Z79.82 Long term (current) use of aspirin; J44.9 Chronic obstructive pulmonary disease, unspecified; Z99.81 Dependence on supplemental oxygen; R05.1 Acute cough; D72.829 Elevated white blood cell count, unspecified; E11.42 Type 2 diabetes mellitus with diabetic polyneuropathy; I25.2 Old myocardial infarction; E66.01 Morbid (severe) obesity due to excess calories; G43.909 Migraine, unspecified, not intractable, without status migrainosus; Z95.5 Presence of coronary angioplasty implant and graft; Z87.891 Personal history of nicotine dependence; Z79.02 Long term (current) use of antithrombotics/antiplatelets; Z79.891 Long term (current) use of opiate analgesic; T38.0X5A Adverse effect of glucocorticoids and synthetic analogues, initial encounter; E11.621 Type 2 diabetes mellitus with foot ulcer; E11.622 Type 2 diabetes mellitus with other skin ulcer; T36.1X5A Adverse effect of cephalosporins and other beta-lactam antibiotics, initial encounter; Z68.34 Body mass index [BMI] 34.0-34.9, adult
CPT/HCPCS: 00123; 36415; 80048; 80053; 82533; 82947; 85027; 87637; 93005; 94640; 96360; 96361; 97162; 97530; 99285; J1650; 71046; 81003; 81015; 82024; 83735; 83880; 84439; 84443; 84484; 85025; 87086; 93010; 94664; 94760; 99223; 99232; 99239; J1720; J1815; J3475; J3490; J7512; J7620

== ENCOUNTER 2025-01-06 14:00 | Outpatient (REF) | payer MEDICARE, SELFPAY ==
[2025-01-06 16:07] LABS: ESR 47 mm/hr (0-20)
[2025-01-06 16:31] LABS: Anion Gap 9.3 mmol/L (3-11); BUN 53 mg/dL (7-18); CO2 25.7 mmol/L (21.0-32.0); CREATININE 1.9 mg/dL (0.70-1.30); Calcium 8.4 mg/dL (8.5-10.1); Calculated LDL 70 mg/dL (<100); Chloride 100 mmol/L (98-107); Cholesterol 152 mg/dL (<200); Estimated GFR 39.39 (mL/min/1.73m2); Glucose 257 mg/dL (74-106); HDL Cholesterol 65 mg/dL (>or=40); Magnesium 1.4 mg/dL (1.8-2.4); Potassium 4.6 mmol/L (3.5-5.1); Sodium 135 mmol/L (136-145); Triglyceride 89 mg/dL (<150)
[2025-01-06 16:44] LABS: C-Reactive Protein 5.95 mg/dL (<or=0.5)
[2025-01-06 17:25] LABS: Hemoglobin A1C 10.7 % (<5.7)
== END 2025-01-06 14:01 | disposition home or self-care (01) ==
LOC: NCHCN 14:00
PROVIDERS: PCP Family Medicine; Visit Provider Family Medicine
DX: I25.10 Atherosclerotic heart disease of native coronary artery without angina pectoris (principal); Z79.4 Long term (current) use of insulin; M86.9 Osteomyelitis, unspecified; R79.0 Abnormal level of blood mineral; I50.22 Chronic systolic (congestive) heart failure
CPT/HCPCS: 80048; 80061; 85652; 83036; 83735; 86140

== ENCOUNTER 2025-04-14 17:17 | Outpatient (REF) | payer MEDICARE, MEDICAID, SELFPAY ==
[2025-04-14 18:44] LABS: ESR 47 mm/hr (0-20); HCT 39.1 % (40.0-50.0); HGB 13.1 g/dL (13.5-17.5); MCH 27.9 pg (27.0-33.0); MCHC 33.5 % (32.0-36.0); MCV 83 fL (80-95); MPV 11.2 fL (8.0-11.0); Platelet Count 254 10^3/uL (130-400); RBC 4.69 10^6/uL (4.36-5.78); RDW 15.7 % (11.8-14.1); RDW-SD 47.5 fL; WBC 17.64 10^3/uL (4.4-10.8)
[2025-04-14 19:11] LABS: ALT 22 U/L (16-63); AST 18 U/L (15-37); Albumin 3.3 g/dL (3.4-5.0); Alkaline Phosphatase 157 U/L (46-116); Anion Gap 12.2 mmol/L (3-11); BUN 62 mg/dL (7-18); Bilirubin, Total 0.5 mg/dL (0.2-1.0); C-Reactive Protein 2.94 mg/dL (<or=0.5); CO2 20.8 mmol/L (21.0-32.0); Calcium 9.1 mg/dL (8.5-10.1); Chloride 98 mmol/L (98-107); Estimated GFR 20.18 (mL/min/1.73m2); Glucose 274 mg/dL (74-106); Magnesium 2.2 mg/dL (1.8-2.4); Potassium 5.3 mmol/L (3.5-5.1); Sodium 131 mmol/L (136-145); TSH 0.25 uIU/mL (0.36-3.74); Total Protein 7.0 g/dL (6.4-8.2)
[2025-04-14 19:26] LABS: Hemoglobin A1C 11.5 % (<5.7)
[2025-04-14 20:02] LABS: Vitamin B12 913 pg/mL (193-986)
[2025-04-18 15:26] LABS: Albumin 53.9 % (55.8-66.1); Albumin g/dL 3.6 g/dL (3.6-5.2); Alpha 1 g/dL 0.40 g/dL (0.15-0.40); Alpha 2 g/dL 0.90 g/dL (0.50-1.00); Beta g/dL 0.90 g/dL (0.60-1.20); Gamma g/dL 0.90 g/dL (0.60-1.60); Total Protein 6.7 g/dL (6.3-8.2)
== END 2025-04-14 17:18 | disposition home or self-care (01) ==
LOC: NCHCN 17:17
PROVIDERS: PCP Family Medicine; Visit Provider Family Medicine
DX: E11.51 Type 2 diabetes mellitus with diabetic peripheral angiopathy without gangrene (principal); G62.9 Polyneuropathy, unspecified; Z79.4 Long term (current) use of insulin
CPT/HCPCS: 80053; 85027; 85652; 82607; 83036; 83735; 84155; 84165; 84439; 84443; 85007; 86140; 86320

== ENCOUNTER 2025-05-19 16:23 | Outpatient (REF) | payer MEDICARE, MEDICAID, SELFPAY ==
[2025-05-19 18:39] LABS: HCT 40.8 % (40.0-50.0); HGB 13.0 g/dL (13.5-17.5); MCH 28.0 pg (27.0-33.0); MCHC 31.9 % (32.0-36.0); MCV 88 fL (80-95); MPV 11.4 fL (8.0-11.0); Platelet Count 244 10^3/uL (130-400); RBC 4.65 10^6/uL (4.36-5.78); RDW 14.7 % (11.8-14.1); RDW-SD 47.4 fL; WBC 16.18 10^3/uL (4.4-10.8)
[2025-05-19 18:41] LABS: ESR 36 mm/hr (0-20)
[2025-05-19 18:48] LABS: ALT 22 U/L (16-63); AST 18 U/L (15-37); Albumin 3.4 g/dL (3.4-5.0); Alkaline Phosphatase 141 U/L (46-116); Anion Gap 12.0 mmol/L (3-11); Bilirubin, Total 0.3 mg/dL (0.2-1.0); CO2 22.0 mmol/L (21.0-32.0); Calcium 8.8 mg/dL (8.5-10.1); Chloride 102 mmol/L (98-107); Estimated GFR 23.57 (mL/min/1.73m2); Glucose 294 mg/dL (74-106); Potassium 5.4 mmol/L (3.5-5.1); Sodium 136 mmol/L (136-145); Total Protein 6.9 g/dL (6.4-8.2)
[2025-05-19 18:57] LABS: C-Reactive Protein < 0.50 mg/dL (<or=0.5)
[2025-05-19 18:59] LABS: BUN 80 mg/dL (7-18)
== END 2025-05-19 16:24 | disposition home or self-care (01) ==
LOC: NCHCN 16:23
PROVIDERS: PCP Family Medicine; Visit Provider Family Medicine
DX: R60.0 Localized edema (principal)
CPT/HCPCS: 80053; 85027; 85652; 86140

== ENCOUNTER 2025-06-01 13:42 | Emergency (ER) | payer MEDICARE, MEDICAID, SELFPAY ==
[2025-06-01] VITALS (25 sets, daily range): BP systolic 123–174; BP diastolic 69–94; PULSE 71–81; RESP 9–20; TEMP 36.3; O2SAT 96–100
--- NOTE | 2025-06-01 13:45 | RT.EKG_ITS ---
APPROVED REPORT Exam: Resting ECG Reason for Exam: Dizziness Patient Location: E HR:78 bpm ECG Measurements Heart Rate 78 AXIS WV 167 P 59 QRSd 116 QRS -29 QT 412 T 87 QTc 469 Conclusion Sinus rhythm...normal P axis, V-rate 60- 99 Incomplete left bundle branch block...QRSd>110mS, terminal axis(-90,-1)
--- NOTE | 2025-06-01 14:06 | W.ED.GENAD ---
Discharge Plan Disposition Patient Disposition: Home Condition: Improving Discharge Details Clinical Impression: Vaso-vagal reaction, Chronic progressive renal failure Primary Care Provider: Kalli Gamble V ED Provider: Buddy Camejo Home Meds and New Rx's Prescriptions: Continued aspirin 81 mg tablet,delayed release (DR/EC) 81 mg PO QAM clopidogrel 75 mg tablet 75 mg PO QAM Glucagon Emergency Kit (human) 1 mg recon soln 1 mg subcut Q20M PRN Rx Instructions: until target blood sugar attained albuterol sulfate [Ventolin HFA] 90 mcg/actuation HFA aerosol inhaler 2 puff inhalation Q4H PRN ranolazine 500 mg tablet extended release 12 hr 500 mg PO BID Patient Comments: need to re-order, refill date 11/06 metoprolol succinate 100 mg tablet extended release 24 hr 50 mg PO BID isosorbide mononitrate 60 mg tablet extended release 24 hr 60 mg PO QPM amlodipine 5 mg tablet 2.5 mg PO QHS Patient Comments: TAKE 1 TABLET BY MOUTH DAILY atorvastatin 40 mg tablet 40 mg PO QHS Patient Comments: TAKE 1 TABLET BY MOUTH DAILY budesonide-formoterol [Symbicort] 160-4.5 mcg/actuation HFA aerosol inhaler 2 puff INHALATION BID Patient Comments: INHALE 2 PUFFS BY MOUTH TWICE DAILY tamsulosin 0.4 mg capsule 0.4 mg PO QAM Patient Comments: TAKE 1 CAPSULE BY MOUTH DAILY Spiriva Respimat 2.5 mcg/actuation mist 2 inh inhalation BID (DME) Omnipod 5 G6-G7 Pods (Gen 5) Cartridge SUBCUT Patient Comments: CHANGE POD EVERY 24 TO 48 HOURS DIRECTED famotidine 20 mg tablet 20 mg PO QAM PRN Patient Comments: TAKE 1 TABLET BY MOUTH EVERY DAY (DME) blood-glucose meter [OneTouch Ultra2 Meter] Kit MISCELLANEOUS glucagon HCl [Glucagon (HCl) Emergency Kit] 1 mg Recon Soln 1 mg IM USEASDIRECTD pantoprazole 40 mg tablet,delayed release (DR/EC) 40 mg PO BID Patient Comments: TAKE 1 TABLET BY MOUTH TWICE DAILY insulin aspart U-100 [Novolog U-100 Insulin aspart] 100 unit/mL solution See Rx Instructions continuous subcutaneous infusion .COMPLEX Patient Comments: per pt no insulin since d/c Rx Instructions: medium dose sliding scale as well as meal associated insulin TID (1 unit per 5 grams of carbs) via continuous subcutaneous infusion; medium dose sliding scale as well as meal associated insulin TID (1 unit per 5 grams of carbs) (DME) Dexcom G6 Sensor Device MISCELLANEOUS Patient Comments: 1 DEVICE EVERY 10 DAYS nitroglycerin 0.4 mg tablet, sublingual 0.4 mg sublingual Q5M PRN Patient Comments: DISSOLVE ONE TABLET UNDER TONGUE NEEDED FOR CHEST PAIN EVERY 5 MINUTES. NOT TO EXCEED 3 TABLETS IN 24 HOURS docusate sodium [Colace] 100 mg capsule 100 mg PO BID PRN cholecalciferol (vitamin D3) [Vitamin D3] 25 mcg (1,000 unit) tablet 5,000 unit PO QAM oxycodone-acetaminophen 10-325 mg tablet 1 tab PO BID PRN Patient Comments: TAKE 1 TABLET BY MOUTH TWICE DAILY FOR CHRONIC PAIN sodium bicarbonate 650 mg tablet 650 mg PO QAM Patient Comments: TAKE 2 TABLETS BY MOUTH THREE TIMES DAILY losartan 25 mg tablet 12.5 mg PO DAILY PRN Patient Comments: TAKE 1/2 TABLET BY MOUTH TWICE DAILY duloxetine 60 mg capsule,delayed release(DR/EC) 60 mg PO BID Patient Comments: TAKE 1 CAPSULE BY MOUTH TWICE DAILY torsemide 20 mg tablet 20 mg PO DAILY Qty: 0 0RF Patient Comments: TAKE 1 TABLET BY MOUTH TWICE DAILY spironolactone 25 mg tablet 12.5 mg PO DAILY Qty: 0 0RF Patient Comments: TAKE 1/2 TABLET BY MOUTH TWICE DAILY Discharge Instructions Instructions: Kidney Failure (DC), Vasovagal Response (DC) Stand Alone Forms: Portal Information Discharge Data Discharge Date/Time-TO BE ENTERED AT DEPARTURE: 06/01/25 17:15 Discharge Physician: Buddy Camejo [facility] General Date/Time Provider Initiated Documentation: 06/01/25 14:03. HPI Narrative: Patient presents emergency department stating that he was sitting on the commode and his was going to get him off and he had an episode of unresponsiveness which he was dazed and does not remember the event. It lasted about 15 seconds and then he improved. Sports he is not feeling well every day for his many problems he is Diabetes diabetic nephropathy history of coronary disease with stents also peripheral vascular disease. Denies any shortness of breath but he does wear oxygen at home for his COPD and sleep apnea and used to smoke until about a year ago he stopped. Denies fever chills Related Data Home Medications Medication Instructions Recorded Confirmed blood-glucose meter (OneTouch 07/18/20 06/01/25 Ultra2 Meter kit) glucagon HCl 1 mg solution for 1 mg IM USEASDIRECTD for severe 07/18/20 06/01/25 injection (Glucagon (HCl) hypoglycemia Emergency Kit) albuterol sulfate 90 mcg/actuation 2 puff inhalation Q4H PRN 06/07/21 06/01/25 aerosol inhaler (Ventolin HFA) aspirin 81 mg tablet,delayed 81 mg PO QAM 06/07/21 06/01/25 release clopidogrel 75 mg tablet 75 mg PO QAM 06/07/21 06/01/25 glucagon 1 mg solution for 1 mg subcut Q20M PRN 06/07/21 06/01/25 injection (Glucagon Emergency Kit) isosorbide mononitrate 60 mg 60 mg PO QPM 06/07/21 06/01/25 tablet,extended release 24 hr metoprolol succinate 100 mg 50 mg PO BID 06/07/21 06/01/25 tablet,extended release 24 hr ranolazine 500 mg tablet,extended 500 mg PO BID 06/07/21 06/01/25 release,12 hr blood-glucose sensor (Dexcom G6 08/30/24 06/01/25 Sensor device) insulin aspart U-100 100 unit/mL See Rx Instructions continuous 08/30/24 06/01/25 subcutaneous solution (Novolog subcutaneous infusion .COMPLEX U-100 Insulin aspart) pantoprazole 40 mg tablet,delayed 40 mg PO BID 08/30/24 06/01/25 release amlodipine 5 mg tablet 2.5 mg PO QHS 10/26/24 06/01/25 atorvastatin 40 mg tablet 40 mg PO QHS 10/26/24 06/01/25 budesonide-formoterol HFA 160 2 puff inhalation BID 10/26/24 06/01/25 mcg-4.5 mcg/actuation aerosol inhaler (Symbicort) insulin pump cart,auto,BT,G6/7 10/26/24 06/01/25 (Omnipod 5 G6-G7 Pods (Gen 5) subcutaneous cartridge) tamsulosin 0.4 mg capsule 0.4 mg PO QAM 10/26/24 06/01/25 tiotropium bromide 2.5 2 inh inhalation BID 10/26/24 06/01/25 mcg/actuation mist for inhalation (Spiriva Respimat) cholecalciferol (vitamin D3) 25 5,000 unit PO QAM 11/11/24 06/01/25 mcg (1,000 unit) tablet (Vitamin D3) docusate sodium 100 mg capsule 100 mg PO BID PRN 11/11/24 06/01/25 (Colace) nitroglycerin 0.4 mg sublingual 0.4 mg sublingual Q5M PRN 11/11/24 06/01/25 tablet oxycodone-acetaminophen 10 mg-325 1 tab PO BID PRN 11/11/24 06/01/25 mg tablet losartan 25 mg tablet 12.5 mg PO DAILY PRN 12/20/24 06/01/25 sodium bicarbonate 650 mg tablet 650 mg PO QAM 12/20/24 06/01/25 duloxetine 60 mg capsule,delayed 60 mg PO BID 12/22/24 06/01/25 release spironolactone 25 mg tablet 12.5 mg (1/2 x 25 mg) PO DAILY #0 12/25/24 06/01/25 tabs torsemide 20 mg tablet 20 mg PO DAILY #0 tabs 12/25/24 06/01/25 famotidine 20 mg tablet 20 mg PO QAM PRN 06/01/25 06/01/25 Previous Rx's Medication Instructions Recorded spironolactone 25 mg tablet 12.5 mg (1/2 x 25 mg) PO DAILY #0 12/25/24 tabs torsemide 20 mg tablet 20 mg PO DAILY #0 tabs 12/25/24 Allergies Allergy/AdvReac Type Severity Reaction Status Date / Time Benzodiazepines Allergy Mild Unknown Verified 06/01/25 13:49 hyoscyamine Allergy Mild Unknown Verified 06/01/25 13:49 Penicillins Allergy Unknown tolerated Unverified 06/01/25 13:49 Zosyn on admission 06/2016 insulin glargine, human AdvReac Intermediate Diarrhea Unverified 12/20/24 15:54 recombin. a (From Lantus) liraglutide (From Victoza) AdvReac Intermediate Diarrhea Unverified 06/01/25 13:49 lorazepam AdvReac Intermediate Loopy Unverified 06/01/25 13:49 metformin AdvReac Intermediate Diarrhea Unverified 06/01/25 13:49 methadone AdvReac Intermediate Loopy Unverified 06/01/25 13:49 pregabalin (From Lyrica) AdvReac Intermediate Diarrhea Verified 06/01/25 13:49 gabapentin AdvReac Mild loopy Unverified 06/01/25 13:49 morphine AdvReac Unknown Flushing Unverified 06/01/25 13:49 when given too fast General Stated Complaint: Dizzy/Sync CARLOS EDUARDO: 3 Review of Systems Narrative: Review of Systems: Constitutional: No fevers, chills, sweats Eye: No recent visual problems ENT: No ear pain, nasal congestion, sore throat Respiratory: No shortness of breath, cough Cardiovascular: No Chest pain, palpitations, syncope Gastrointestinal: No nausea, vomiting, diarrhea Genitourinary: No hematuria Bernard/Lymph: Negative for bruising tendency, swollen lymph glands Endocrine: Negative for excessive thirst, excessive hunger Musculoskeletal: No back pain, neck pain, joint pain, muscle pain, decreased range of motion Integumentary: No rash, pruritus, abrasions Neurologic: Alert & oriented X 4 Psychiatric: No anxiety, depression Exam Narrative Exam Narrative: Exam; vitals signs as reported above normal Constitutional; In no acute distress, afebrile General: cooperative, healthy appearing, comfortable and no acute distress HEENT: Head: normal to inspection, no palpable skull fracture and normocephalic atraumatic Eyes: : appearance normal, both eyes and all related structures EOM intact bilaterally Pupils: PERRL : conjunctiva normal Direct ophthalmoscopy: normal light reflex, normal conjunctiva, normal visual acuity Ears: Normal TM, normal external canal Nose: normal no rhinorreha Neck no JVD, supple non tender Neck: normal visual inspection, full ROM and no lymphadenopathy Chest: normal inspection of the chest Respiratory : normal respiratory effort and able to speak in complete sentences no wheezing no rales Cardio Rate: regular rate, rhythm: regular rhythm normal heart sounds S1 and S2 no murmurs, gallops, or rubs GI : normal to inspection, normal bowel sounds, soft, non tender, non distended, no organomegaly Back/Spine/ no CVA tenderness Thoracic/Lumbar Spine: no tenderness or deformities Skin no rashes or lesions Neuro: patient alert oriented x 4 and no meningeal signs, Cranial Nerves: CN's II-XI intact bilaterally, Cognition: normal cognition, Speech: speech normal, Gait: normal gait, Depp tendon reflexes normal 2+ muscle strength 5/5 bilaterally Extremities, no edema, full range of motion, normal strength : normal Course Vital Signs Vital signs: Vital Signs Temperature 36.3 C L 06/01/25 13:46 Pulse 78 06/01/25 13:46 Respiratory Rate 18 06/01/25 13:46 Blood Pressure 123/69 06/01/25 13:46 Pulse Oximetry 96 06/01/25 13:46 Temperature 36.3 C L 06/01/25 13:46 Pulse 78 06/01/25 13:46 Respiratory Rate 18 06/01/25 13:46 Blood Pressure 123/69 06/01/25 13:46 Pulse Oximetry 96 06/01/25 13:46 Pain Level 5 06/01/25 13:46 Medical Decision Making MDM: Summary: Patient presented to the emergency department stating that he is not feeling well all over and that he was having a bowel movement when he then got up and felt mildly unresponsive but according to the came back in 15 seconds. Patient has a history of diabetes peripheral vascular disease coronary disease EKG is within normal limits 2 troponins were negative chest x-ray does not show any infiltrates he was given IV fluids with improvement the only abnormality is that his BUN has increased to 73 and the creatinine is 2.8 it was higher last month but it has been progressively increasing concerning that this patient has diabetic nephropathy. He states that he is going to go see tomorrow the specialist in [place] at the [facility] clinic who will address his peripheral vascular disease as well as his kidney dysfunction. Patient is improved and will be discharged home Data Review Analysis All the data on this patient was reviewed by me including laboratory and imaging studies as well as bedside studies performed by me Independent review of Studies Imaging Chest x-ray did not show any abnormality Lab: Chronic elevation of the BUN to creatinine ratio troponins are serially negative Risk Stratification: Patient with diabetes peripheral vascular disease and progressive acute on chronic renal failure to be discharged home with follow-up with nephrology Differential Diagnosis: 1. Chronic renal failure 2. Diabetes diabetic nephropathy 3. Vasovagal symptoms 4. Acute coronary syndrome 5. Consultants: Shared disposition: Patient is signs of disposition and agrees Impression: Medical Records Medical records reviewed: Yes I reviewed the patient's medical records. Imaging Data Radiologic Study: Attestation: I personally reviewed and interpreted this imaging study as follows: Imaging: X-Ray Radiologist's impression: Patient Name: Yo Longoria Unit #: [id number] Loc: ER Ordering Provider: Buddy Camejo M.D. Status: [facility] Primary Care Provider: Kalli Gamble M.D. Date of Exam: 06/01/25 Sex: M Admission Date: 06/01/25 : 1960 Age: 65 Exam(s) XR PORTABLE CHEST AP EXAM: XR PORTABLE CHEST AP CLINICAL HISTORY: dyspnea TECHNIQUE: 2D digital imaging was performed of the chest. One image was obtained. An AP view was obtained. COMPARISON: CT CT CHEST LUNG CANCER SCREEN from 04/13/2021 CR,XR XR PORTABLE CHEST AP from 12/22/2021 CR XR PORTABLE CHEST AP from 10/26/2024 CR XR CHEST 2V PA LATERAL from 11/11/2024 CR XR CHEST 2V PA LATERAL from 12/08/2024 CR,XR XR CHEST 2V PA LATERAL from 12/20/2024 FINDINGS: MEDIASTINUM: Normal. HEART: Normal. PULMONARY VASCULATURE: Normal. LUNGS: There is a stable calcified nodule in the right lung. The left lung is clear. There are persistent opacities in the right lung base. PLEURAL SPACE: There is persistent blunting of the right costophrenic angle suggesting a small right pleural effusion. There is no left pleural effusion. There is no pneumothorax. BONE:Within normal limits for the patient's age. OTHER FINDINGS:Normal. IMPRESSION: 1. There has been no significant change compared to the prior examination. 2. Persistent blunting of the right costophrenic angle suggesting a small pleural effusion versus scarring. 3. Persistent opacities in the right lung base. This may represent chronic scarring versus a superimposed pneumonia or atelectasis. Please correlate clinically. DATA REPOSITORY: RADIATION DOSE DELIVERED: Lab Data Lab results reviewed: Yes I reviewed the patient's lab results. ECG Data Attestation: I personally reviewed and interpreted this ECG (s) as follows: Prior ECG tracings: available for review Interpretation: Her rate 78 normal sinus rhythm incomplete left bundle branch block no acute ST-T changes Quality:SDOH Health Related Social Needs: Health related social needs risk of homeless transpo insecurity house/econ circumstance finding work daily activities lonely/isolated Health related social needs details patient stated of been approved by state to pay somebody to stay with him. 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 (Acute) COPD (chronic obstructive pulmonary disease) (Chronic) Anemia (Chronic) Hyperthyroidism (Chronic) Elevated liver enzymes (Acute) Hx of left BKA (Acute) Hyperlipidemia (Chronic) Hyperkalemia (Acute) Surgical wound infection (Acute) CHF (congestive heart failure) (Chronic) Severe sepsis (Acute) PVD (peripheral vascular disease) (Chronic) Diabetes (Chronic) Diabetic foot ulcer (Chronic) Cellulitis of right ankle (Acute) No-show for appointment (Acute) Medical History Retinal disease, left Uses continuous positive airway pressure (CPAP) ventilation at home Hypotension Dehydration Below-knee amputation of left lower extremity Peripheral neuropathy Cervicalgia Headache, post-traumatic COVID-19 Phantom limb pain Tobacco use Chronic kidney disease, stage III (moderate) Inferior CT 2006 Hx of pancreatitis Exposure to COVID-19 virus 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 CAD (coronary artery disease) multiple stents 2006 Diabetes mellitus GERD (gastroesophageal reflux disease) HTN (hypertension) Hypercholesterolemia DARIO (obstructive sleep apnea) Obesities, morbid Migraine Neuropathy Diabetic foot ulcer Poorly controlled diabetes mellitus Chest pain Surgical History Hx of cardiac catheterization Status post below knee amputation of left lower extremity History of lung biopsy History of heart artery stent S/P foot surgery Social History Smoking/Tobacco Use Status: Former Tobacco Use Quit Date: 05/30/24 Smoking risk assessment performed?: Yes Alcohol Intake: never Drug use: Never Substance use type: does not use Housing: house Do you feel safe at home: Yes Do you feel safe in your relationship?: Yes Vital Signs & Lab Results Vital Signs Most Recent Vital Signs: Most Recent Vital Signs Temp Pulse Resp BP Pulse Ox 36.3 C L 76 14 164/77 H 100 06/01/25 13:46 06/01/25 15:20 06/01/25 15:20 06/01/25 14:31 06/01/25 15:20 Lab Results 06/01/25 14:25 06/01/25 14:25 Complete Blood Count: WBC, (4.4-10.8) 12.31 10^3/uL H Today, 14:25 RBC, (4.36-5.78) 4.53 10^6/uL Today, 14:25 Hgb, (13.5-17.5) 12.7 g/dL L Today, 14:25 Hct, (40.0-50.0) 39.7 % L Today, 14:25 Plt Count, (130-400) 196 10^3/uL Today, 14:25 Complete Metabolic Panel: Sodium, (136-145) 135 mmol/L L Today, 14:25 Potassium, (3.5-5.1) 4.8 mmol/L Today, 14:25 Chloride, (98-107) 102 mmol/L Today, 14:25 Carbon Dioxide, (21.0-32.0) 20.6 mmol/L L Today, 14:25 BUN, (7-18) 73 mg/dL H Today, 14:25 Creatinine, (0.70-1.30) 2.8 mg/dL H Today, 14:25 Est GFR (CKD-EPI 2020), (mL/min/1.73m2) 24.58 Today, 14:25 Calcium, (8.5-10.1) 9.0 mg/dL Today, 14:25 Albumin, (3.4-5.0) 3.2 g/dL L Today, 14:25 Glucose, (74-106) 310 mg/dL H Today, 14:25 C-Reactive Protein, (<or=0.5) < 0.50 mg/dL 05/19/25, 15:30 Liver Function Panel: ALT, (16-63) 16 U/L Today, 14:25 AST, (15-37) 13 U/L L Today, 14:25 Coagulation Panel: INR, (0.9-1.1) 1.0 Today, 14:25 PT, (9.1-11.1) 10.3 sec Today, 14:25 D-Dimer, (<500) 1438 ng/mlFEU H Today, 14:25 Cardiac Panel: Troponin I, (<or=76) 14 ng/L Today NT-Pro-B Natriuret Pep, (<300) 678 pg/mL H Today Venous Blood Gas: VBG pH, (7.31-7.41) 7.34 Today, 14:25 VBG pO2 37 mmHg Today, 14:25 VBG pCO2, (41-51) 39 mmHg L Today, 14:25 VBG O2 Saturation 71 % Today, 14:25 VBG HCO3, (23-28) 21 mmol/L L Today, 14:25 VBG Base Excess, (-2-3) -5 mmol/L L Today, 14:25 VBG Total CO2, (24-29) 19 mmol/L L Today, 14:25
[2025-06-01 14:36] LABS: BE (Venous) -5 mmol/L (-2-3); HCO3 (Venous) 21 mmol/L (23-28); O2 Sat (Venous) 71 %; TCO2 (Venous) 19 mmol/L (24-29); pCO2 (Venous) 39 mmHg (41-51); pO2 (Venous) 37 mmHg
[2025-06-01 14:38] LABS: Abs Immature Grans 0.21 10^3/uL (0.0-0.06); HCT 39.7 % (40.0-50.0); HGB 12.7 g/dL (13.5-17.5); Immature Grans % 1.7 %; MCH 28.0 pg (27.0-33.0); MCHC 32.0 % (32.0-36.0); MCV 88 fL (80-95); MPV 11.0 fL (8.0-11.0); Platelet Count 196 10^3/uL (130-400); RBC 4.53 10^6/uL (4.36-5.78); RDW 14.3 % (11.8-14.1); RDW-SD 45.8 fL; WBC 12.31 10^3/uL (4.4-10.8)
--- NOTE | 2025-06-01 14:45 | DI.CT_ITS ---
Exam(s) CT HEAD WO EXAM: CT HEAD WO CLINICAL HISTORY: syncope. TECHNIQUE: Imaging Protocol: Axial computed tomography images with coronal and sagittal reformatted images were created and reviewed COMPARISON: CT CT HEAD WO from 06/24/2020 FINDINGS: Ventricles and Extra axial spaces: Normal in size and morphology for the patient's age. Hemorrhage: None. Cerebral parenchyma: There are areas of decreased attenuation in the white matter consistent with chronic microvascular ischemic disease. There is no acute mass effect or findings to suggest an acute territorial infarct. Midline shift: None. Brainstem/Cerebellum: Normal. Calvarium: Normal. Visualized Paranasal sinuses/Mastoids: Clear. Soft Tissues: Unremarkable. IMPRESSION: No acute intracranial process. RADIATION DOSE DELIVERED: 832.66mGy.cm Total DLP DATA REPOSITORY: All CT scans at this facility are submitted to the National Radiology Data Registry (NRDR) Dose Index Registry (DIR) with the [employer] (A[employer]). RADIATION OPTIMIZATION: All CT scans at this facility use at least one of these dose optimization techniques: automated exposure control; mA and/or kV adjustment per patient size (includes targeted exams where dose is matched to clinical indication); or iterative reconstruction.
[2025-06-01 15:00] LABS: Ammonia < 10 umol/L (11-32)
[2025-06-01] MEDS: Normal Saline 1,000 ML 1000 ML IV (15:03)
[2025-06-01 15:04] LABS: INR 1.0 (0.9-1.1); Prothrombin Time 10.3 sec (9.1-11.1)
[2025-06-01 15:08] LABS: ALT 16 U/L (16-63); AST 13 U/L (15-37); Albumin 3.2 g/dL (3.4-5.0); Alkaline Phosphatase 130 U/L (46-116); Anion Gap 12.4 mmol/L (3-11); BUN 73 mg/dL (7-18); Bilirubin, Total 0.5 mg/dL (0.2-1.0); CO2 20.6 mmol/L (21.0-32.0); Calcium 9.0 mg/dL (8.5-10.1); Chloride 102 mmol/L (98-107); Glucose 310 mg/dL (74-106); Potassium 4.8 mmol/L (3.5-5.1); Sodium 135 mmol/L (136-145); Total Protein 7.3 g/dL (6.4-8.2); Troponin I 15 ng/L (<or=76)
[2025-06-01 15:14] LABS: D-Dimer 1438 ng/mlFEU (<500)
[2025-06-01 15:55] LABS: Troponin I 14 ng/L (<or=76)
--- NOTE | 2025-06-01 16:00 | DI.RAD_ITS ---
Exam(s) XR PORTABLE CHEST AP EXAM: XR PORTABLE CHEST AP CLINICAL HISTORY: dyspnea TECHNIQUE: 2D digital imaging was performed of the chest. One image was obtained. An AP view was obtained. COMPARISON: CT CT CHEST LUNG CANCER SCREEN from 04/13/2021 CR,XR XR PORTABLE CHEST AP from 12/22/2021 CR XR PORTABLE CHEST AP from 10/26/2024 CR XR CHEST 2V PA LATERAL from 11/11/2024 CR XR CHEST 2V PA LATERAL from 12/08/2024 CR,XR XR CHEST 2V PA LATERAL from 12/20/2024 FINDINGS: MEDIASTINUM: Normal. HEART: Normal. PULMONARY VASCULATURE: Normal. LUNGS: There is a stable calcified nodule in the right lung. The left lung is clear. There are persistent opacities in the right lung base. PLEURAL SPACE: There is persistent blunting of the right costophrenic angle suggesting a small right pleural effusion. There is no left pleural effusion. There is no pneumothorax. BONE:Within normal limits for the patient's age. OTHER FINDINGS:Normal. IMPRESSION: 1. There has been no significant change compared to the prior examination. 2. Persistent blunting of the right costophrenic angle suggesting a small pleural effusion versus scarring. 3. Persistent opacities in the right lung base. This may represent chronic scarring versus a superimposed pneumonia or atelectasis. Please correlate clinically. DATA REPOSITORY: RADIATION DOSE DELIVERED:
== END 2025-06-01 17:15 | disposition home or self-care (01) ==
PROVIDERS: Emergency Provider Emergency Medicine Emergency Medical Services; PCP Family Medicine
DX: R55 Syncope and collapse (principal); N18.9 Chronic kidney disease, unspecified; Z86.79 Personal history of other diseases of the circulatory system; Z95.5 Presence of coronary angioplasty implant and graft; Z59.811 Housing instability, housed, with risk of homelessness; Z59.82 Transportation insecurity; Z59.89 Other problems related to housing and economic circumstances; Z60.8 Other problems related to social environment; Z73.9 Problem related to life management difficulty, unspecified
CPT/HCPCS: 36415; 80053; 82805; 93005; 96360; 99284; 70450; 71045; 82140; 83880; 84484; 85025; 85379; 85610; 93010